=== PATIENT | female | born 1950 | race Caucasian/White ===

== ENCOUNTER → 2017-05-12 11:23 | Outpatient (CLI) | payer OTHER, SELFPAY ==
--- NOTE | 2017-05-12 11:30 | NM_ITS ---
CLINICAL: 57-year-old female with reported history of shortness of breath. VENTILATION-PERFUSION LUNG SCINTIGRAPHY COMPARISON: Plain film chest radiograph report 05/12/2017 FINDINGS: The patient was administered 56.1 mCi 99m Tc DTPA aerosol. The aerosol ventilation study demonstrates heterogeneous ventilation in the bilateral lung teresa without corresponding radiographic changes visualized on review of plain film chest x-ray dated 05/12/2017. Central clumping of the aerosol is identified in the bilateral hemithorax. Following the intravenous administration of 5.2 mCi of 99m Tc MAA, the pulmonary perfusion study reveals matching non-uniform perfusion in the right and left lungs correlating with the previously defined ventilation pattern. No moderate subsegmental or large segmental ventilation-perfusion mismatches are noted. NM/Lung Scan Vent/Perf IMPRESSION: 1. VERY LOW PROBABILITY FOR PULMONARY EMBOLUS (<10%) 99m Tc DTPA aerosol ventilation / 99m Tc MAA pulmonary perfusion imaging examination, according to PIOPED II interpretive criteria with regard given to the presence of > 2 ventilation-perfusion matches without corresponding radiographic changes. (Sotsman et al, Radiology 246: 941, 2008 Soleanne et al, J Nucl Med 49: 1741, 2008). 2. Central clumping of the aerosol may be secondary to obstructive airway mechanics and or clinical tachypnea. Electronically Signed: Gordy Grewal DO at 9:31 EST Tel , Service support ,
--- NOTE | 2017-05-12 12:30 | RAD_ITS ---
STUDY: X-RAY CHEST REASON FOR EXAM: Female, 67 years old. Shortness of breath. TECHNIQUE: PA and lateral views of the chest. COMPARISON: 04/05/2014. FINDINGS: There are slightly prominent markings unchanged prior exam. No new infiltrate is seen. There is no demonstrated pleural abnormality. There is mild cardiac enlargement. Normal mediastinum and gigi. Normal visualized pulmonary arteries. There is atherosclerotic tortuosity of the aortic arch and descending thoracic aorta. There is dextroscoliosis of the thoracic spine and increased kyphosis. There are degenerative changes in the thoracic spine. There are mild degenerative changes in both shoulders. There is no demonstrated abnormality of the visualized soft tissue structures of the upper abdomen. RAD/Chest PA and Lateral IMPRESSION: No active pulmonary disease. Electronically Signed: Adilson Yo MD at 3:57 EST Tel , Service support ,
== END ==
LOC: NM 11:25 → RAD 12:30 → NM 05-13 11:24
PROVIDERS: Family Provider Family Medicine; PCP Family Medicine; Visit Provider Internal Medicine Critical Care Medicine
DX: R06.02 Shortness of breath (principal); R06.00 Dyspnea, unspecified
CPT/HCPCS: 71046; 78582; A9540; A9567

== ENCOUNTER 2017-05-15 11:05 | Emergency (ER) | payer OTHER, SELFPAY ==
[2017-05-15 11:06] VITALS: BP 174/106; PULSE 81; RESP 18; TEMP 37.2; O2SAT 96; BMI 39.8
--- NOTE | 2017-05-15 11:20 | CT_ITS ---
STUDY: CT ABDOMEN AND PELVIS WITHOUT CONTRAST REASON FOR EXAM: Female, 67 years old. Nausea, vomiting and diarrhea. Abdominal pain. Prior abdominal aortic aneurysm repair. RADIATION DOSAGE (If Supplied By Facility): CTDIvol = ( 23.01 ) mGy, DLP = ( 1126.48 ) mGycm TECHNIQUE: Transaxial images were obtained from the dome of the diaphragm to the symphysis pubis without oral contrast, and without intravenous contrast. Sagittal and coronal images were reconstructed. Individualized dose optimization techniques were used for this CT. COMPARISON: Comparison is made with prior study dated March 27, 2017. FINDINGS: The visualized lung bases are unremarkable. Coronary artery calcification. Normal liver. There are surgical clips in the gallbladder fossa consistent with a prior cholecystectomy. There is a benign calcified granuloma of the spleen. Normal pancreas. Normal bilateral adrenal glands. Normal right kidney. Normal left kidney. There is evidence of a left retroaortic renal vein. There is a small hiatal hernia. Normal small intestine. Normal colon. There are surgical clips in the region of the appendix consistent with a prior appendectomy. There is scattered atherosclerotic calcification of the abdominal aorta, without a demonstrated aneurysm. Normal inferior vena cava. Normal retroperitoneum. Normal urinary bladder. Small bilateral benign-appearing inguinal lymph nodes. Normal abdominal wall. Prior laminectomy and interpedicular screw fixation at the L4-L5 level. Marked degree of disc space narrowing and disc degeneration with subchondral sclerosis at the T12-L1 vertebral level. CT/Abdomen/Pelvis without Cont IMPRESSION: No acute abnormality is seen. Electronically Signed: El Mora MD at 12:32 EST Tel [phone], Service support ,
[2017-05-15] MEDS: 0.9% Normal Saline 1,000 ML 125 ML IV (11:41)
[2017-05-15] MEDS: Ondansetron 4 MG/2 ML Vial IV (11:42)
[2017-05-15 11:55] LABS: Absolute Lymphocyte Count 1.39 X10^3/ul (0.83-4.51); Absolute Neutrophil Count 10.3 X10^3/uL (2.0-7.7); Basophil# 0.02 X10^3/uL; Basophil% 0.2 % (0-1); Eosinophil# 0.06 X10^3/uL; Eosinophils% 0.5 % (0-5); Hematocrit 40.7 % (37-47); Hemoglobin 14.1 g/dl (12.0-15.0); Lymphocyte # 1.39 X10^3/ul (4.0); Lymphocyte % 11.1 % (19-41); Mean Corp Hgb Conc 34.6 g/gl (32-36); Mean Corpuscular Hgb 29.3 pg (27.0-32.0); Mean Corpuscular Volume 84.4 fL (81-99); Mean Platelet Vol. 8.6 fl (6.2-12.0); Monocyte% 5.6 % (0-10); Neutrophil # 10.27 X10^3/uL (2.7-7.7); Neutrophil % 82.1 % (47-70); POSITIVE COUNT NO; POSITIVE DIFFERENTIAL NO; POSITIVE MORPHOLOGY NO; Platelet Count 332 K/mm3 (150-450); RBC Distribution Width CV 13.1 % (11.6-14.6); RBC Distribution Width SD 40.1 fl (35.1-43.9); Red Blood Count 4.82 M/mm3 (4.2-5.4); White Blood Count 12.5 K/mm3 (4.4-11.0)
[2017-05-15 12:13] LABS: ALB/GLOB Ratio 0.9 RATIO (0.9-2.4); AST(SGOT) 17 U/L (15-37); Alanine Aminotransfer ALT/SGPT 23 U/L (13-56); Albumin, Serum 3.6 g/dL (3.2-5.0); Alkaline Phosphatase 74 U/L (45-117); Anion Gap 10 (5-15); BUN 13 mg/dL (7-18); BUN/Creat Ratio 14.9 RATIO (10-20); Calcium,Total 9.4 mg/dL (8.5-10.1); Chloride 90 mmol/L (98-107); Creatinine, Serum 0.87 mg/dL (0.55-1.02); EST Glomerular Filtration Rate 69 mL/min (>60); Est Glom Filt Rate - Afr Amer 84 mL/min (>60); Estimated Creatinine Clearance 54.93 ml/min; Globulin 4.1 g/dL (2.2-4.2); Glucose 249 mg/dL (74-106); Lipase 153 U/L (73-393); Potassium 3.1 mmol/L (3.5-5.1); Protein, Total 7.7 g/dL (6.4-8.2); Sodium Level 128 mmol/L (136-145)
[2017-05-15 12:39] LABS: Mucous, Urine 0 SEEN /hpf (<or=2+)
[2017-05-15 12:51] LABS: Color, Urine Yellow (Yellow); Glucose, Dipstick 250 mg/dl (Normal); Leukocyte Esterase-Dipstick Negative /ul (Negative); Nitrite-Dipstick Negative (Negative); Occult Blood-Urine 150 /ul (Negative); Protein-Dipstick 500 mg/dl (Negative); Specific Gravity, Urine 1.015 (1.002-1.030); Urine Bilirubin Dipstick Negative (Negative); Urine Clarity Clear (Clear); Urine Urobilinogen Normal (Normal); Urine pH 6.5 (5.0 - 8.0)
[2017-05-15 12:53] LABS: Ketone-Dipstick 150 mg/dl (Negative)
[2017-05-15 12:57] LABS: Bacteria RARE /hpf (None Seen); Red Blood Cells-Urine 0-5 SEEN /hpf (0-5); Squamous Epithelial Cells - UA 5-10 SEEN /hpf (5-10); White Blood Cells 0-5 SEEN /hpf (0-5)
[2017-05-15 15:05] VITALS: BP 120/56
--- NOTE | 2017-05-15 15:38 | ED.VISSUMM ---
- ER Visit Summary Date of Service: 05/15/17 Chief Complaint: [Abdominal pain and diarrhea] History of Present Illness: The patient is a 67 F [presents to the emergency department with complaint of abdominal pain that started yesterday. Patient states she has had 2 watery stools today. Patient states that she ate some cranberry relish that was left over from Thanksgiving 2 days ago and she is wondering if she may be got food poisoning. Patient denies any blood in her stool or black tarry stools. Patient denies any fever. Patient has a history of diabetes, hypertension, gastritis, peptic ulcer disease, appendectomy, and cholecystectomy.] Physical Examination: [HEENT-PERRLA, EOMI. Cranial nerves II through XII grossly intact. TMs clear. Mucous membranes moist. No adenopathy. Cardiovascular-regular rate and rhythm without murmur or ectopy Lungs-clear to auscultation, chest wall stable without crepitus or subcu emphysema Abdomen-hyperactive bowel sounds, soft, mild diffuse tenderness. There is no rebound, rigidity, or perineal signs. Extremities-intact ?4, normal range of motion, normal pulses, atraumatic] Test Results: [CBC with differential obtained showed a white blood cell count 12.5, hemoglobin 14, hematocrit 41, platelets 332. Sodium was 128, potassium 3.1, chloride 90, CO2 28, glucose 249, BUN 13, creatinine 0.87. Urine was not infected however she did have [address] flank showed nothing acute. I ordered stool for enteric pathogens and C. difficile however patient throughout her 4 hour stay in the emergency department has not been able to produce a sample.] Emergency Department Course and Treatment: [1040 mg once potassium chloride p.o. Patient was given a liter normal same fluid bolus. Patient was medicated with Zofran and morphine. Patient was able to sleep and feels improved.] Treatment Plan: [Patient will be given a prescription for Zofran and Bentyl and advised to follow-up with her primary care physician within next 3-5 days.] Disposition: [Discharged to home in stable condition.] Impression: [Abdominal pain Diarrhea-etiology uncertain] This note was generated with [employer] dictation software. It may contain incorrect words, spelling, and punctuation that were not noted in review of the chart prior to signing ED Disposition - Plan for ED Patient: Chief Complaint: Nausea/Vomiting Referrals: Kaz Cevrantes DO [Primary Care Provider] -
--- NOTE | 2017-05-15 15:43 | ED.DEP ---
ED Disposition - Plan for ED Patient: Chief Complaint: Nausea/Vomiting Instructions: ED Vomiting Diarrhea Nonspecific Ad Prescriptions: Ondansetron [Zofran Odt] 4 mg PO Q8H PRN PRN #10 tab PRN Reason: Nausea Dicyclomine HCl [Bentyl] 20 mg PO TIDAC #20 cap Referrals: Kaz Cervantes DO [Primary Care Provider] - 3-5 Days
[2017-05-15 15:51] VITALS: PULSE 78; RESP 14; O2SAT 98
== END 2017-05-15 15:53 | disposition home or self-care (01) ==
LOC: ED 11:49
PROVIDERS: Emergency Provider Emergency Medicine; Family Provider Family Medicine; PCP Family Medicine
DX: R10.9 Unspecified abdominal pain (principal); R19.7 Diarrhea, unspecified; E11.9 Type 2 diabetes mellitus without complications; I10 Essential (primary) hypertension; Z79.01 Long term (current) use of anticoagulants; Z79.82 Long term (current) use of aspirin; Z79.4 Long term (current) use of insulin; Z79.899 Other long term (current) drug therapy; Z87.19 Personal history of other diseases of the digestive system; Z87.11 Personal history of peptic ulcer disease; Z90.49 Acquired absence of other specified parts of digestive tract
CPT/HCPCS: 74176; 80053; 81001; 83690; 85025; 96361; 96374; 96375; 99284; J7030; A4216; J2405

== ENCOUNTER → 2017-05-20 15:52 | Outpatient (CLI) | payer OTHER, SELFPAY ==
[2017-05-20 17:17] LABS: Absolute Lymphocyte Count 1.93 X10^3/ul (0.83-4.51); Absolute Neutrophil Count 11.7 X10^3/uL (2.0-7.7); Basophil# 0.04 X10^3/uL; Basophil% 0.3 % (0-1); Eosinophil# 0.57 X10^3/uL; Eosinophils% 3.7 % (0-5); Hematocrit 41.1 % (37-47); Hemoglobin 14.1 g/dl (12.0-15.0); Lymphocyte # 1.93 X10^3/ul (4.0); Lymphocyte % 12.6 % (19-41); Mean Corp Hgb Conc 34.3 g/gl (32-36); Mean Corpuscular Hgb 29.6 pg (27.0-32.0); Mean Corpuscular Volume 86.2 fL (81-99); Mean Platelet Vol. 9.4 fl (6.2-12.0); Monocyte# 1.02 X10^3/uL; Monocyte% 6.6 % (0-10); Neutrophil # 11.66 X10^3/uL (2.7-7.7); Neutrophil % 75.9 % (47-70); Platelet Count 429 K/mm3 (150-450); RBC Distribution Width CV 13.4 % (11.6-14.6); RBC Distribution Width SD 41.3 fl (35.1-43.9); Red Blood Count 4.77 M/mm3 (4.2-5.4); White Blood Count 15.4 K/mm3 (4.4-11.0)
[2017-05-20 17:22] LABS: POSITIVE COUNT NO; POSITIVE DIFFERENTIAL NO; POSITIVE MORPHOLOGY NO
[2017-05-20 17:44] LABS: Anion Gap 13 (5-15); BUN 48 mg/dL (7-18); BUN/Creat Ratio 14.3 RATIO (10-20); Calcium,Total 9.3 mg/dL (8.5-10.1); Chloride 97 mmol/L (98-107); Creatinine, Serum 3.36 mg/dL (0.55-1.02); EST Glomerular Filtration Rate 15 mL/min (>60); Est Glom Filt Rate - Afr Amer 18 mL/min (>60); Glucose 150 mg/dL (74-106); Potassium 3.2 mmol/L (3.5-5.1); Sodium Level 135 mmol/L (136-145)
== END ==
PROVIDERS: Family Provider Family Medicine; PCP Family Medicine; Visit Provider Family Medicine
DX: A09 Infectious gastroenteritis and colitis, unspecified (principal); E87.6 Hypokalemia; D72.829 Elevated white blood cell count, unspecified
CPT/HCPCS: 36415; 80048; 83630; 85025; 86140; 87177; 87209; 87493; 87506

== ENCOUNTER 2017-05-21 13:27 | Inpatient (IN) | payer OTHER, MEDICARE, SELFPAY ==
[2017-05-21] VITALS (8 sets, daily range): BP systolic 81–115; BP diastolic 39–74; PULSE 55–62; RESP 18–19; TEMP 36.3–36.8; O2SAT 93–97; BMI 38.9; BMI 39.2; BMI 39.3
--- NOTE | 2017-05-21 14:15 | EKG12_ITS ---
Test Reason : LABS OFF Blood Pressure : / mmHG Vent. Rate : 057 BPM Atrial Rate : 057 BPM P-R Int : 212 ms QRS Dur : 094 ms QT Int : 462 ms P-R-T Axes : 016 -11 065 degrees QTc Int : 449 ms Sinus bradycardia with 1st degree A-V block Otherwise normal ECG Confirmed by THERESA MALIK, TUCKER ([id number]), state editor JULIAN YEAGER ([id number]) on 05/27/2017 3:47:16 PM Referred By: SHUBHAM Confirmed By:TUCKER CARDENAS MD
[2017-05-21 14:32] LABS: Absolute Lymphocyte Count 2.19 X10^3/ul (0.83-4.51); Absolute Neutrophil Count 16.3 X10^3/uL (2.0-7.7); Basophil# 0.04 X10^3/uL; Basophil% 0.2 % (0-1); Eosinophil# 0.38 X10^3/uL; Eosinophils% 1.9 % (0-5); Hematocrit 40.8 % (37-47); Hemoglobin 14.1 g/dl (12.0-15.0); Lymphocyte # 2.19 X10^3/ul (4.0); Lymphocyte % 10.9 % (19-41); Mean Corp Hgb Conc 34.6 g/gl (32-36); Mean Corpuscular Hgb 29.4 pg (27.0-32.0); Mean Platelet Vol. 9.4 fl (6.2-12.0); Monocyte# 1.05 X10^3/uL; Monocyte% 5.2 % (0-10); Neutrophil # 16.32 X10^3/uL (2.7-7.7); Neutrophil % 81.3 % (47-70); Platelet Count 404 K/mm3 (150-450); RBC Distribution Width CV 13.6 % (11.6-14.6); RBC Distribution Width SD 41.8 fl (35.1-43.9); White Blood Count 20.1 K/mm3 (4.4-11.0)
[2017-05-21] MEDS: 0.9% Normal Saline 1,000 ML 1000 ML IV (14:33)
[2017-05-21 14:34] LABS: POSITIVE COUNT NO; POSITIVE DIFFERENTIAL NO; POSITIVE MORPHOLOGY NO
[2017-05-21 14:46] LABS: Anion Gap 14 (5-15); BUN 59 mg/dL (7-18); BUN/Creat Ratio 11.1 RATIO (10-20); Calcium,Total 9.1 mg/dL (8.5-10.1); Chloride 95 mmol/L (98-107); Creatinine, Serum 5.31 mg/dL (0.55-1.02); EST Glomerular Filtration Rate 9 mL/min (>60); Est Glom Filt Rate - Afr Amer 10 mL/min (>60); Glucose 115 mg/dL (74-106); Potassium 3.1 mmol/L (3.5-5.1); Sodium Level 132 mmol/L (136-145)
--- NOTE | 2017-05-21 16:45 | HP.PCM_ITS ---
Problem List (1) JILL (acute kidney injury) Status: Acute (2) Hyperlipidemia Status: Chronic Qualifiers: Hyperlipidemia type: unspecified Qualified Code(s): E78.5 - Hyperlipidemia , unspecified (3) Diabetic peripheral neuropathy Status: Chronic (4) Hypokalemia Status: Chronic (5) Spinal stenosis of lumbar region Status: Chronic Qualifiers: Neurogenic claudication status: unspecified Qualified Code(s): M48.061 - Spinal stenosis, lumbar region without neurogenic claudication (6) Gastroenteritis Status: Acute (7) Morbid obesity Status: Chronic (8) Hypertension Status: Chronic Qualifiers: Hypertension type: essential hypertension Qualified Code(s): I10 - Essential (primary) hypertension Comment: BP slightly elevated upon arrival. Recheck 130/82 Taking medication as directed. (9) Recurrent falls Status: Acute History of Present Illness Date of Admission: 05/21/17 Chief Complaint: Recurrent falls, abnormal labs The patient is a 67 year old F with past medical history of type 2 DM, complicated by polyneuropathy, Hypertension, chronic low back pain secondary to lumbar stenosis and degenerative joint disease comes in with complaints of recurrent falls, feeling of imbalance, and abnormal blood work. According to the patient, she has not been feeling well, has been feeling like she is losing her balance, her legs gave out twice and she fell over the last 1- 1/2 weeks. She went to see her primary care doctor today and his labs was said to be abnormal with creatinine of 3.36. Admits to having diarrhea we started on Friday multiple times a day, nonbloody, nonmucoid. She took Imodium today and has had a couple bowel movements. No fever but she admits to chills. Denies any chest pain or palpitations or dizziness. Vitals in the ED showed temperature of 97.4F, heart rate of 60, blood pressure 99/39, oxygen saturation was 97% on room air. Laboratory investigation revealed WBC count of 20.1, Hb of 14.1, platelets of 404, sodium 132, potassium 3.1, chloride 95, bicarbonate 23, BUN 59, creatinine 5.31. Past Medical History Past Medical History (Chronic Problems): Chronic Problems (Last Reviewed 05/07/17 @ 09:10 by Heather Epps) Seasonal allergies (Chronic) Chronic bronchitis (Chronic) Vitamin D deficiency (Chronic) Hyperlipidemia (Chronic) Diabetic peripheral neuropathy (Chronic) Hypokalemia (Chronic) IBS (irritable bowel syndrome) (Chronic) Insomnia (Chronic) Spinal stenosis of lumbar region (Chronic) DDD (degenerative disc disease), cervical (Chronic) Disequilibrium (Chronic) Dyspnea on exertion (Chronic) GERD (gastroesophageal reflux disease) (Chronic) Morbid obesity (Chronic) Atrial septal defect (Chronic) Pulmonary emboli (Chronic) Asthma (Chronic) DM (diabetes mellitus), type 2, uncontrolled (Chronic) Hypertension (Chronic) BP slightly elevated upon arrival. Recheck 130/82 Taking medication as directed. Restless leg syndrome (Chronic) Anxiety and depression (Chronic) SHANNON (obstructive sleep apnea) (Chronic) Obesity (BMI 35.0-39.9 without comorbidity) (Chronic) Allergies latex Allergy (Verified 05/21/17 13:29) Itching zolpidem [From Ambien] Adverse Reaction (Severe, Verified 05/21/17 13:29) Sleep walking/talking environmental Allergy (Uncoded 05/21/17 13:29) Other Home Medications: Ambulatory Orders Medication Instructions Recorded Ropinirole HCl [Requip] 4 mg PO QHS 02/23/13 Potassium Chloride [K-Dur] 20 meq PO QHS 12/23/15 amlodipine 10 mg tablet 10 mg PO QDAY 02/28/17 chlorthalidone 25 mg tablet 25 mg PO QAM tab 02/28/17 ergocalciferol (vitamin D2) 50,000 50,000 unit PO QMONTH 02/28/17 unit capsule losartan 100 mg tablet 100 mg PO QDAY 02/28/17 omeprazole 40 mg capsule,delayed 40 mg PO QDAY 02/28/17 release propranolol ER 120 mg capsule,24 120 mg PO QDAY 02/28/17 hr,extended release insulin human U-100 NPH-regulr 30 unit SC BREAKFAST 03/03/17 70-30 mix 100 unit/mL subcutaneous susp aspirin 81 mg tablet,delayed 81 mg PO QDAY 03/04/17 release Gabapentin [Neurontin] 800 mg PO 4X/DAY 03/27/17 Insulin Human 70/30 [Novolog Mix 45 units SC LUNCH 03/27/17 70-30 Flexpen Syrn] Insulin Human 70/30 [Novolog Mix 75 units SC DINNER 03/27/17 70-30 Flexpen Syrn] Loperamide [Imodium] 2 mg PO Q4H PRN PRN #20 cap 04/01/17 warfarin 7.5 mg tablet 7.5 mg PO DAILY tab 04/08/17 Ondansetron [Zofran Odt] 4 mg PO Q8H PRN PRN #10 tab 05/15/17 Surgical History: - - BL carpal tunnel release, Appendectomy, Back Surgery, Cataract surgery, Cholecystectomy, Umbilical hernia repair. 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 Denies: Fever, Weight Change Eyes: Denies: Blurred vision, Cataracts, Conjunctivae Inflammation, Double vision HEENT: Denies: Difficulty Hearing, Difficulty Swallowing, Head Aches, Hearing Changes, Sinus Congestion, Sinus Drainage Cardiovascular: Reports: Edema - worse in the left leg. Denies: Chest Pain, Claudication, Heaviness, Light Headedness, Orthopnea, Palpitations, Paroxysmal Noc. Dyspnea, Syncope Respiratory: Denies: Cough, Shortness of breath at rest, Sputum production Gastrointestinal: Denies: Abdominal Pain, Constipation, Hematemesis, Hematochezia, Nausea, Vomiting Genitourinary: Denies: Dysuria, Incontinence Gynecological: Denies: Vaginal discharge, Vaginal itching Musculoskeletal: Denies: Joint Pain, Joint stiffness, Joint swelling, Joint Tenderness Skin: Denies: Dryness, Pruritis, Rash, Wounds Neurological: Reports: Numbness - chronic. Denies: Difficulty swallowing, Focal weakness, Tingling Psychiatric: Denies: Anxiety, Depression, Homicidal Ideations, Suicidal Ideations Hematologic/ Lymphatic: Denies: Easy Bruising, Easy Bleeding VTE Information - Inpt Only VTE Present on Admission: No VTE Pharm Prophylaxis ordered?: Yes Patient Problems: Active and Suspected Problems (Last Reviewed 05/07/17 @ 09:10 by Heather Epps ) JILL (acute kidney injury) (Acute) Recurrent falls (Acute) - Physical Exam General: Alert, Oriented x3, Cooperative HEENT: Atraumatic, PERRLA, EOMI, Normocephalic Oral: Dry Mucosa Neck: Supple Lungs: Clear to auscultation, Normal air movement Cardiovascular: Regular rate, Regular Rhythm, Normal S1, Normal S2, No murmurs Abdomen: Bowel Sounds Present, Soft, Non Tender, Non-Distended, No Hepato- splenomegaly Extremities: No edema Skin: No rashes Musculoskeletal: No Tenderness to Palpation of Joints or Extremities Lymphatic: No Cervical, Supraclavicular, or Inguinal Adenopathy Neurological: Cranial nerves II-XII grossly intact Psych/Mental Status: Normal Affect, Appropriate Vital Signs Temp Pulse Resp BP Pulse Ox 97.4 F L 55 L 19 H 93/72 93 05/21/17 13:29 05/21/17 16:32 05/21/17 16:32 05/21/17 16:32 05/21/17 16:32 Oxygen Delivery Method Room Air Weight: 102.965 kg Body Mass Index (BMI) 38.9 Finger Stick Blood Glucose 225 Laboratory Tests Past 24 Hrs 05/21/17 05/21/17 14:16 14:16 WBC 20.1 H RBC 4.80 Hgb 14.1 Hct 40.8 MCV 85.0 MCH 29.4 MCHC 34.6 RDW 13.6 RDW Differential 41.8 Plt Count 404 MPV 9.4 Immature Gran % (Auto) 0.500 Neut % (Auto) 81.3 H Lymph % (Auto) 10.9 L Troup % (Auto) 5.2 Eos % (Auto) 1.9 Baso % (Auto) 0.2 Absolute Neuts (auto) 16.3 H Absolute Lymphs (auto) 2.19 Total Counted Not Reportable Sodium 132 L Potassium 3.1 L Chloride 95 L Carbon Dioxide 23.0 Anion Gap 14 BUN 59 H Creatinine 5.31 H Estim Creat Clear Calc 9.00 Est GFR (MDRD) Af Amer 10 L Est GFR (MDRD) Non-Af 9 L BUN/Creatinine Ratio 11.1 Glucose 115 H Calcium 9.1 Assessment/Plan Active and Suspected Problems (Last Reviewed 05/07/17 @ 09:10 by Heather Epps ) JILL (acute kidney injury) (Acute) Recurrent falls (Acute) 67 year old F with past medical history of type 2 DM, complicated by polyneuropathy, Hypertension, chronic low back pain secondary to lumbar stenosis and degenerative joint disease comes in with complaints of recurrent falls, feeling of imbalance, and abnormal blood work. 1. Acute kidney injury in a patient with normal renal function, admitted with creatinine of 5.31, patient denied any urinary frequency or urgency Plan: Admit to the [facility] floor, nephrology consult, Mccain catheter to be placed, strict I's and O's, ultrasound of the kidneys and bladder, IV fluids, stop chlorthalidone, repeat blood work in a.m. 2. Hypokalemia secondary to diuretic use, replaced in the ED, recheck in a.m. 3. Hypertension, slightly hypotensive, on amlodipine, losartan, chlorthalidone , will continue to hold chlorthalidone and losartan because of HPI, continue amlodipine and monitor blood pressures closely 4. Type II DM, complicated by peripheral neuropathy, on insulin, will continue to use same insulin with Accu-Cheks and insulin sliding scale. 5. Acute diarrhea, unclear etiology, stool sample sent to the ED, will put on contact precautions pending results, will continue to hydrate and money symptomatically 6. History of pulmonary embolism, on Coumadin, INR noted in the ED, follow-up on INR results and continue with Coumadin 7. Recurrent falls in a patient with peripheral neuropathy, likely exacerbated also by dehydration, will check orthostatic vitals, PT OT to evaluate and treat 8. DVT prophylaxis - patient on Coumadin Code Visit Inpatient E&M: 88855 Init Hosp L3
--- NOTE | 2017-05-21 17:00 | ED.DCSUM_ITS ---
- ER Visit Summary Date of Service: 05/21/17 Chief Complaint: Generalized weakness and low potassium History of Present Illness: The patient is a 67 F with generalized weakness and not feeling well for the last week and a half. She developed diarrhea last weekend and started taking Imodium. She denies having diarrhea since yesterday. She states that she feels confused. She states she has fallen in her home a couple times in the last few weeks. She was seen by her PCP yesterday and outpatient labs revealed elevated white count, low potassium, and elevated creatinine. Past history is significant for IBS, GERD, PE, diabetes, and asthma. She is chronically on Coumadin but this is been on hold the last 5 days for an upcoming back injection. Physical Examination: Blood pressure is 99/39, temperature 97.4, heart rate 60, respiratory rate 18, pulse ox 97% on room air. Patient's lying in bed no acute distress. Head neck examination is unremarkable. Heart is regular rate and rhythm. Lung sounds are clear. Abdomen is soft with mild diffuse tenderness to palpation. There is no guarding or rebound. Neuro exam reveals generalized weakness but no focal deficits. Test Results: CBC was a white count of 20.1 with 81% neutrophils. Her history studies reveal a sodium of 132, potassium 3.1, chloride 95. Her BUN today is 59 and her creatinine is 5.31. This is compared to a BUN of 48 and a creatinine of 3.38 yesterday. Emergency Department Course and Treatment: Patient is given 2 L of IV fluid, oral potassium, and Zofran. She is currently up to the bedside commode. Stool studies have been ordered. I spoke with Dr. Back for admission and also spoke with nephrology per her request. Treatment Plan: [] Disposition: Admit Impression: 1. Acute renal failure 2. Hypokalemia 3. Leukocytosis This note was generated with [employer] dictation software. It may contain incorrect words, spelling, and punctuation that were not noted in review of the chart prior to signing ED Disposition - Plan for ED Patient: Chief Complaint: General Illness
[2017-05-21] MEDS: 0.9% Normal Saline 1,000 ML 999 ML IV (17:06)
--- NOTE | 2017-05-21 17:38 | US_ITS ---
STUDY: RENAL ULTRASOUND - COMPLETE REASON FOR EXAM: Female, 67 years old. Acute renal failure TECHNIQUE: Ultrasound evaluation of the kidneys was performed with real-time and static altman-scale imaging. COMPARISON: None. FINDINGS: RIGHT KIDNEY: Normal location of the right kidney, which is normal in size. The right kidney measures 13.3 x 4.7 x 5.1 cm. There is a normal cortex of the right kidney. The renal cortex measures 1.2 cm. There is no right renal mass or cyst. There are no right renal calculi. There is no right hydronephrosis. DISTAL RIGHT URETER: There is non-visualization of the distal right ureter. There is no demonstrated right ureterovesical junction calculus. There is a visualized right ureteral jet. LEFT KIDNEY: Normal location of the left kidney, which is normal in size. The left kidney measures 12.4 x 4.7 x 4.6 cm. There is a normal cortex of the left kidney. The renal cortex measures 1.3 cm. There is no left renal mass or cyst. There are no left renal calculi. There is no left hydronephrosis. DISTAL LEFT URETER: There is non-visualization of the distal left ureter. There is no demonstrated left ureterovesical junction calculus. There is a visualized left ureteral jet. I.V.C.: The IVC is patent. BLADDER: The distended urinary bladder has a volume of 104 ml. There is borderline wall thickness of the distended urinary bladder. There is no demonstrated mass within the urinary bladder. There are no demonstrated bladder calculi. US/Kidney and Bladder IMPRESSION: Normal ultrasound of the kidneys. Borderline wall thickness of the urinary bladder. Electronically Signed: Cosme Syed DO at 21:09 EST Tel [phone], Service support ,
[2017-05-21 17:54] LABS: International Normalized Ratio 1.5; Prothrombin Time (Protime)PT. 17.8 SECONDS (11.7-14.9)
[2017-05-21 18:46] LABS: Bedside Glucose 92 mg/dL (70-110)
[2017-05-21] MEDS: 0.9% Normal Saline 1,000 ML 100 ML IV (19:10)
[2017-05-21 20:49] LABS: Protein, Urine (Random) 106.1 mg/dL (<11.9)
[2017-05-21 20:53] LABS: Urine Sodium 7 mmol/L (Not Establ.)
[2017-05-21] MEDS: Heparin Injection 5,000 UNITS/ML Syringe 5000 UNITS SC (22:06)
[2017-05-21] MEDS: Pramipexole Di-HCl 0.5 MG Tablet 1.5 MG PO (22:06)
[2017-05-21 22:16] LABS: Bedside Glucose 143 mg/dL (70-110)
[2017-05-22] VITALS (13 sets, daily range): BP systolic 91–134; BP diastolic 48–67; PULSE 60–79; RESP 17–18; TEMP 36.7–37.1; O2SAT 95–98
[2017-05-22] MEDS: Acetaminophen 325 MG Tablet 650 MG PO (02:52)
[2017-05-22] MEDS: 0.9% Normal Saline 1,000 ML 100 ML IV ×2 (05:13→15:33)
[2017-05-22 06:56] LABS: Absolute Lymphocyte Count 2.15 X10^3/ul (0.83-4.51); Basophil# 0.02 X10^3/uL; Basophil% 0.1 % (0-1); Hematocrit 32.6 % (37-47); Lymphocyte # 2.15 X10^3/ul (4.0); Lymphocyte % 16.1 % (19-41); Mean Corp Hgb Conc 33.7 g/gl (32-36); Mean Corpuscular Hgb 29.3 pg (27.0-32.0); Mean Corpuscular Volume 86.9 fL (81-99); Mean Platelet Vol. 9.2 fl (6.2-12.0); Monocyte# 0.73 X10^3/uL; Monocyte% 5.5 % (0-10); Neutrophil # 10.03 X10^3/uL (2.7-7.7); Neutrophil % 74.9 % (47-70); Platelet Count 236 K/mm3 (150-450); RBC Distribution Width CV 13.4 % (11.6-14.6); RBC Distribution Width SD 41.5 fl (35.1-43.9); Red Blood Count 3.75 M/mm3 (4.2-5.4); White Blood Count 13.4 K/mm3 (4.4-11.0)
[2017-05-22 06:58] LABS: POSITIVE COUNT NO; POSITIVE DIFFERENTIAL NO; POSITIVE MORPHOLOGY NO
[2017-05-22 06:59] LABS: Anion Gap 12 (5-15); BUN 56 mg/dL (7-18); BUN/Creat Ratio 16.4 RATIO (10-20); Calcium,Total 7.7 mg/dL (8.5-10.1); Chloride 106 mmol/L (98-107); Creatinine, Serum 3.42 mg/dL (0.55-1.02); EST Glomerular Filtration Rate 14 mL/min (>60); Est Glom Filt Rate - Afr Amer 17 mL/min (>60); Estimated Creatinine Clearance 13.97 ml/min; Glucose 151 mg/dL (74-106); Potassium 3.5 mmol/L (3.5-5.1); Sodium Level 136 mmol/L (136-145)
[2017-05-22 07:07] LABS: International Normalized Ratio 1.3; Prothrombin Time (Protime)PT. 15.8 SECONDS (11.7-14.9)
[2017-05-22 08:07] LABS: Bedside Glucose 124 mg/dL (70-110)
[2017-05-22] MEDS: Aspirin E.C. 81 MG Tablet PO (08:10)
--- NOTE | 2017-05-22 08:30 | PCM.PN.HOSP ---
Patient Problems: Active and Suspected Problems (Last Reviewed 05/07/17 @ 09:10 by Heather Epps) JILL (acute kidney injury) (Acute) Recurrent falls (Acute) Subjective: Patient with no acute events overnight per self and per nursing report. Notes feeling markedly improved since initial presentation, less fatigued, more energy, denies any ongoing diarrhea as recent Lomotil regimen following a negative C. difficile assay. She denies any emesis but does have occasional nausea outpatient. Did recent labs and improved renal function, likely prerenal, decision for ongoing IV fluids to which patient is amenable. Patient denies fevers, chills, nausea, emesis, abdominal pain, chest pain or dyspnea. Objective: Physical Examination: General: awake, alert, oriented x 3 and cooperative, seated upright in bed, fatigued appearance, notes feeling improved. Skin: normal color, turgor, no icterus, cyanosis. HEENT: AT/NC, EOMI, PERRLA, improved MMM. Lungs: CTA bilaterally, moderate effort, mild decrease BL bases, no rales, ronchi or wheezing. Heart: Regular rate and rhythm; no gallop, rub audible. Abdomen: soft, obese, NTTP, ND, mildly hyperactive BS. Extremities: no cyanosis, clubbing, or edema. Neurological: patient awake, alert, oriented x 3; cognitive function intact; pupils equally reactive to light and accomodation; cranial nerves II-XII grossly normal, moving all 4 extremities, no focal deficits, strength moderately globally decreased, improved since initial presentation. Psychiatric: affect appears normal, no acute evidence of depressive or anxiety feelings. Vitals/I&O's: Vital Signs Temp Pulse Resp BP Pulse Ox 98.4 F 67 18 115/63 98 05/22/17 08:19 05/22/17 08:19 05/22/17 08:19 05/22/17 08:19 05/22/17 08:19 Oxygen Delivery Method Room Air Weight: 233 lb 3.985 oz Body Mass Index (BMI) 39.2 Orthostatic Vital Signs Start: 05/21/17 18:03 Freq: q24h Status: Active Protocol: Activity Type Activity Date Activity User E-Sign Co-Sign Detail Recorded Client Recorded Date Recorded By Document 05/21/17 18:03 AEC [id number] 05/21/17 18:04 AEC 05/21/17 18:03 Orthostatic Vitals Standing -Blood Pressure (90/60-120/80) 104/74 -Extremity Use Left Arm -Pulse Rate (60-100) 62 Sitting -Blood Pressure (90/60-120/80) 99/64 -Extremity Use Left Arm -Pulse Rate (60-100) 56 L Lying -Blood Pressure (90/60-120/80) 115/59 L -Extremity Use Left Arm -Pulse Rate (60-100) 56 L Intake and Output for Last 24 Hours 05/20/17 05/21/17 05/22/17 23:59 23:59 23:59 Intake Total 873 / 873 Output Total 600 / 600 Balance 273 / 273 Laboratory Results 05/21/17 18:13: POC Glucose 92 05/21/17 19:46: Urine Creatinine 354.00 05/21/17 19:46: U Random Total Protein 106.1 H 05/21/17 19:46: Ur Random Sodium 7 05/21/17 22:05: POC Glucose 143 H 05/22/17 06:10: Sodium 136, Potassium 3.5, Chloride 106, Carbon Dioxide 18.0 L, Anion Gap 12, BUN 56 H, Creatinine 3.42 H, Estim Creat Clear Calc 13.97, Est GFR (MDRD) Af Amer 17 L, Est GFR (MDRD) Non-Af 14 L, BUN/Creatinine Ratio 16.4, Glucose 151 H, Calcium 7.7 L 05/22/17 06:42: WBC 13.4 H, RBC 3.75 L, Hgb 11.0 L, Hct 32.6 L, MCV 86.9, MCH 29.3, MCHC 33.7, RDW 13.4, RDW Differential 41.5, Plt Count 236, MPV 9.2, Immature Gran % (Auto) 0.400, Neut % (Auto) 74.9 H, Lymph % (Auto) 16.1 L, [place] % (Auto) 5.5, Eos % (Auto) 3.0, Baso % (Auto) 0.1, Absolute Neuts (auto) 10.0 H, Absolute Lymphs (auto) 2.15, Total Counted Not Reportable 05/22/17 06:42: PT 15.8 H, INR 1.3 05/22/17 08:01: POC Glucose 124 H Current Medications Acetaminophen (Tylenol) 650 mg PO Q6H PRN PRN PRN Reason: Mild Pain (1-3)/Temp > 100.7 F Last Admin: 05/22/17 02:52 Dose: 650 mg Amlodipine Besylate (Norvasc) 10 mg PO DAILY [facility] Aspirin (Ecotrin) 81 mg PO DAILYCM [facility] Last Admin: 05/22/17 08:10 Dose: 81 mg Bisacodyl (Dulcolax) 5 mg PO DAILY PRN PRN PRN Reason: Constipation Dextrose (D50w Syringe) 0 gm IV X1 PRN; Protocol PRN Reason: Hypoglycemia Ergocalciferol (Vitamin D) 50,000 unit PO QMONTH [facility] Glucagon () 1 mg IM .X1 PRN PRN Reason: Hypoglycemia Heparin Sodium (Porcine) () 5,000 units SC BID [facility] Last Admin: 05/21/17 22:06 Dose: 5,000 units Sodium Chloride () 1,000 mls @ 100 mls/hr IV .Q10H [facility] Last Admin: 05/22/17 05:13 Dose: 100 mls/hr Insulin Aspart (Novolog Mix 70-30 Flexpen Syrn) 45 units SC LUNCH [facility] Insulin Aspart (Novolog Mix 70-30 Flexpen Syrn) 75 units SC DINNER [facility] Last Admin: 05/21/17 22:07 Dose: Not Given Insulin Aspart (Novolog Mix 70-30 Flexpen Syrn) 30 units SC BREAKFAST [facility] Last Admin: 05/22/17 08:12 Dose: 30 u Insulin Aspart (Novolog Flexpen (Bkc)) 0 units SC ACHS [facility] PRN Reason: Protocol Last Admin: 05/22/17 08:11 Dose: Not Given Loperamide HCl (Imodium) 2 mg PO Q4H PRN PRN PRN Reason: Diarrhea Losartan Potassium (Cozaar) 100 mg PO DAILY [facility] Magnesium Hydroxide (Milk Of Magnesia) 30 ml PO DAILY PRN PRN PRN Reason: Constipation Ondansetron HCl (Zofran Odt) 4 mg PO Q8H PRN PRN PRN Reason: NAUSEA Ondansetron HCl (Zofran) 4 mg IV Q8H PRN PRN PRN Reason: NAUSEA Pantoprazole Sodium (Protonix) 40 mg PO DAILY [facility] Potassium Chloride (K-Dur) 20 meq PO QHS [facility] Last Admin: 05/21/17 22:06 Dose: 20 meq Pramipexole Dihydrochloride (Mirapex) 1.5 mg PO QHS [facility] Last Admin: 05/21/17 22:06 Dose: 1.5 mg Propranolol HCl (Inderal La) 120 mg PO DAILY [facility] Psyllium Hydrophilic Mucilloid (Metamucil) 1 packet PO DAILY PRN PRN PRN Reason: CONSTIPATION Sodium Chloride () 5 - 30 ml IV UD PRN PRN Reason: SALINE FLUSH Warfarin Sodium (Coumadin (Pbkc)) 7.5 mg PO [id number]@1700 [facility] Assessment/Plan Active and Suspected Problems (Last Reviewed 05/07/17 @ 09:10 by Heather Epps) JILL (acute kidney injury) (Acute) Recurrent falls (Acute) The patient is a 66 y/o F w/ PMHx: GERD/PUD, Atrial septal defect, Hx Pulmonary emboli on anticoagulation with coumadin, HTN, Asthma, RLS, SHANNON, Morbid Obesity, Diabetes Mellitus type II, Anxiety and depression who presents to the [facility] ED on 05/22/17 with ongoing falls, malaise, ongoing diarrhea which she has had in the past also with unremarkable labs studies prior. (1) Frequent Falls, Ongoing Diarrhea, Poor Intake, ? Unclear Etiology, ? Gastroenteritis: Admitted to [facility], continue hydration, c-diff negative, will obtain enteric pathogen and O+P to be thorough given ongoing issue, CBC improved with IVFs, afebrile, will not start antibiotics at this time given unclear source pending stool studies, she has had prior CT A/P 03/2017 with similar presentation which was unremarkable at that time, rapid influenza negative, UA unremarkable. Anti-emetics, pain regimen PRN. PT, OT given debility and weakness. (2) Acute kidney injury: Secondary to #1, dehydration, poor intake, similar presentation in the past, admission BUN/Cr 59/5.31, baseline Cr prior 0.7-0.9, continued hydration, 05/22/17 BUN/Cr 56/3.42, improving, hold of any nephrotoxic agents, renal US unremarkable aside mild bladder thickening, FeNa 0.08%, David 7, both consistent with extrarenal losses. Nephrology consulted, pending. (3) Hypokalemia: Admission K+ 3.1, supplementation given, repeat level normalized 3.5. (4) Hyponatremia: Hypovolemic, secondary to #1 and #2, continue hydration as noted, repeat BMP in AM. (5) Leukocytosis: Admission CBC w/ WBC 20.1 with L shift, following hydration w/ JILL as noted, repeat 05/22/17 CBC with WBC 13.4 with decrease L shift, UA not marked, c-diff negative, influenza rapid negative. (6) Atrial septal defect: Following with Dr. Sepulveda, maintained on coumadin w/ INR trending. (7) Hx Pulmonary emboli: Maintain on anticoagulation with coumadin, INR trending. (8) Hypertension: Continue home regimen including Norvasc, propranolol, PRN hydralazine. Given dehydration and JILL will hold ARB, chlorthalidone regimen. (9) Chronic Asthma: PRN albuterol, HOB, IS parameters. (10) RLS: Maintain on home Requip regimen. (11) SHANNON: CPAP q HS. (12) Morbid Obesity: Weight loss and lifestyle changes encouraged, nutrition consulted. (13) Diabetes mellitus type II: Hold oral home regimen, continue home insulin regimen, clears initially and ADAT-->ADA diet, accu checks w/ ISS. (14) Anxiety and depression: Maintain on home regimen citalopram. (15) GERD/PUD: Maintain on home PPI, sucralafate. (16) DVT Prophylaxis: SCDs, coumadin w/ INR trending, admission INR 1.5, repeat 1.3, will start heparin drip given JILL presentation until therapeutic or more near goal. Code Visit Inpatient E&M: [id number] [facility] L3
--- NOTE | 2017-05-22 08:34 | PCM.CONS.R ---
Consultation - Renal 05/22/17 PCP/ Referring MD: Requesting physician: Lisa Bran MD Primary care physician: Kaz Cervantes DO Reason for Consultation:: JILL - History of Present Illness History of Present Illness: The patient is a 67 year old F admitted for JILL, dehydration. She complains of nonbloody diarrhea past several days about 10 episodes a dauy. She has a history chronic diarrhea from IBS resolved with imodium usually. She was hospitalized in March for diarrhea, dehydration and stool for cdiff was negative in March. She presents with weakness with hypokalemia, worsening renal function. Creatinine was 5.3 on admit yesterday improved to 3.4 today with iv fluids. She had stool for cdiff checked as outpt in ER on 05/15 that was negative. She denied fever, chills, nausea, vomiting. No recent antibiotic therapy. She has diabetes on metformin at home. Home medication list includes chlorthalidone and losartan both discontinued on admit. She had mild epigastric pain with history of PUD. She denied CP, swelling, SOB. She has noticed a decline in urine output at home. She admits to lightheadedness at home, frequent falls. She has neuropathy, diabetes, hypertension history. - Allergies Allergies: Allergies latex Allergy (Verified 05/21/17 13:29) Itching zolpidem [From Ambien] Adverse Reaction (Severe, Verified 05/21/17 13:29) Sleep walking/talking environmental Allergy (Uncoded 05/21/17 13:29) Other - Current Medications Current Medications: Current Medications Acetaminophen (Tylenol) 650 mg PO Q6H PRN PRN PRN Reason: Mild Pain (1-3)/Temp > 100.7 F Last Admin: 05/22/17 02:52 Dose: 650 mg Amlodipine Besylate (Norvasc) 10 mg PO DAILY [facility] Aspirin (Ecotrin) 81 mg PO DAILYCM [facility] Last Admin: 05/22/17 08:10 Dose: 81 mg Bisacodyl (Dulcolax) 5 mg PO DAILY PRN PRN PRN Reason: Constipation Dextrose (D50w Syringe) 0 gm IV X1 PRN; Protocol PRN Reason: Hypoglycemia Ergocalciferol (Vitamin D) 50,000 unit PO QMONTH [facility] Glucagon () 1 mg IM .X1 PRN PRN Reason: Hypoglycemia Heparin Sodium (Porcine) () 5,000 units SC BID [facility] Last Admin: 05/21/17 22:06 Dose: 5,000 units Sodium Chloride () 1,000 mls @ 100 mls/hr IV .Q10H [facility] Last Admin: 05/22/17 05:13 Dose: 100 mls/hr Insulin Aspart (Novolog Mix 70-30 Flexpen Syrn) 45 units SC LUNCH [facility] Insulin Aspart (Novolog Mix 70-30 Flexpen Syrn) 75 units SC DINNER [facility] Last Admin: 05/21/17 22:07 Dose: Not Given Insulin Aspart (Novolog Mix 70-30 Flexpen Syrn) 30 units SC BREAKFAST [facility] Last Admin: 05/22/17 08:12 Dose: 30 u Insulin Aspart (Novolog Flexpen (Bkc)) 0 units SC ACHS [facility] PRN Reason: Protocol Last Admin: 05/22/17 08:11 Dose: Not Given Loperamide HCl (Imodium) 2 mg PO Q4H PRN PRN PRN Reason: Diarrhea Losartan Potassium (Cozaar) 100 mg PO DAILY [facility] Magnesium Hydroxide (Milk Of Magnesia) 30 ml PO DAILY PRN PRN PRN Reason: Constipation Ondansetron HCl (Zofran Odt) 4 mg PO Q8H PRN PRN PRN Reason: NAUSEA Ondansetron HCl (Zofran) 4 mg IV Q8H PRN PRN PRN Reason: NAUSEA Pantoprazole Sodium (Protonix) 40 mg PO DAILY [facility] Potassium Chloride (K-Dur) 20 meq PO QHS [facility] Last Admin: 05/21/17 22:06 Dose: 20 meq Pramipexole Dihydrochloride (Mirapex) 1.5 mg PO QHS [facility] Last Admin: 05/21/17 22:06 Dose: 1.5 mg Propranolol HCl (Inderal La) 120 mg PO DAILY [facility] Psyllium Hydrophilic Mucilloid (Metamucil) 1 packet PO DAILY PRN PRN PRN Reason: CONSTIPATION Sodium Chloride () 5 - 30 ml IV UD PRN PRN Reason: SALINE FLUSH Warfarin Sodium (Coumadin (Pbkc)) 7.5 mg PO [id number]@1700 [facility] - Past Medical History Past Medical History (Chronic Problems): Chronic Problems (Last Reviewed 05/07/17 @ 09:10 by Heather Epps) Seasonal allergies (Chronic) Chronic bronchitis (Chronic) Vitamin D deficiency (Chronic) Hyperlipidemia (Chronic) Diabetic peripheral neuropathy (Chronic) Hypokalemia (Chronic) IBS (irritable bowel syndrome) (Chronic) Insomnia (Chronic) Spinal stenosis of lumbar region (Chronic) DDD (degenerative disc disease), cervical (Chronic) Disequilibrium (Chronic) Dyspnea on exertion (Chronic) GERD (gastroesophageal reflux disease) (Chronic) Morbid obesity (Chronic) Atrial septal defect (Chronic) Pulmonary emboli (Chronic) Asthma (Chronic) DM (diabetes mellitus), type 2, uncontrolled (Chronic) Hypertension (Chronic) BP slightly elevated upon arrival. Recheck 130/82 Taking medication as directed. Restless leg syndrome (Chronic) Anxiety and depression (Chronic) SHANNON (obstructive sleep apnea) (Chronic) Obesity (BMI 35.0-39.9 without comorbidity) (Chronic) - Past Surgical History Surgical History: appendectomy, cataract, cholecystectomy, herniorrhaphy - unbilical, - - BL carpal tunnel release - Social History Smoking Status: Never smoker Alcohol: None Drugs: None - Family History Maternal Family History: Family History (Last Reviewed 05/07/17 @ 09:10 by Heather Epps) Father Heart disease Hypertension CAD (coronary artery disease) Arthritis Mother Hypertension Asthma Diabetes Heart disease COPD (chronic obstructive pulmonary disease) History Items: Diabetes, Heart Disease Paternal Family History: Family History (Last Reviewed 05/07/17 @ 09:10 by Heather Epps) Father Heart disease Hypertension CAD (coronary artery disease) Arthritis Mother Hypertension Asthma Diabetes Heart disease COPD (chronic obstructive pulmonary disease) History Items: Diabetes, Heart Disease Review of Systems Constitutional: Reports: Anorexia, Weakness, - - frequent falls. Denies: Chills, Fever Eyes: Reports: Cataracts - removed HEENT: Denies: Head Aches Cardiovascular: Reports: - - near syncope. Denies: Chest Pain, Palpitations Respiratory: Denies: Cough, Shortness of Breath Gastrointestinal: Reports: Abdominal Pain, Diarrhea, - - irritable bowel. Denies: Nausea, Vomiting Genitourinary: Denies: Dysuria Musculoskeletal: Reports: Back Pain. Denies: Joint swelling Skin: Denies: Rash Neurological: Reports: Balance problems. Denies: Tremor, Seizures Psychiatric: Reports: Anxiety, Depression Hematologic/ Lymphatic: Denies: Anemia, Hx of blood clot Patient Problems: Active and Suspected Problems (Last Reviewed 05/07/17 @ 09:10 by Heather Epps) Dehydration (Acute) Dehydration with hyponatremia (Acute) JILL (acute kidney injury) (Acute) Recurrent falls (Acute) - Physical Exam General: Alert, Oriented x3, Cooperative, No apparent distress, - - obese HEENT: PERRLA, EOMI Oral: Dry Mucosa Neck: Supple, No JVD Lungs: Clear to auscultation Cardiovascular: Regular rate Abdomen: Bowel Sounds Present, Soft, Non Tender, Non-Distended, Obese Extremities: No edema Skin: No rashes Musculoskeletal: No Muscle Wasting Neurological: Cranial nerves II-XII grossly intact Psych/Mental Status: Normal Affect, Appropriate, Alert and oriented to time, place, person, mood and affect Vital Signs Temp Pulse Resp BP Pulse Ox 98.4 F 67 18 115/63 98 05/22/17 08:19 05/22/17 08:19 05/22/17 08:19 05/22/17 08:19 05/22/17 08:19 Oxygen Delivery Method Room Air Weight: 105.8 kg Body Mass Index (BMI) 39.2 Orthostatic Vital Signs Start: 05/21/17 18:03 Freq: q24h Status: Active Protocol: Activity Type Activity Date Activity User E-Sign Co-Sign Detail Recorded Client Recorded Date Recorded By Document 05/21/17 18:03 [facility] [id number] 05/21/17 18:04 AEC 05/21/17 18:03 Orthostatic Vitals Standing -Blood Pressure (90/60-120/80) 104/74 -Extremity Use Left Arm -Pulse Rate (60-100) 62 Sitting -Blood Pressure (90/60-120/80) 99/64 -Extremity Use Left Arm -Pulse Rate (60-100) 56 L Lying -Blood Pressure (90/60-120/80) 115/59 L -Extremity Use Left Arm -Pulse Rate (60-100) 56 L Intake and Output for Last 24 Hours 05/20/17 05/21/17 05/22/17 23:59 23:59 23:59 Intake Total 873 / 873 Output Total 600 / 600 Balance 273 / 273 Laboratory Tests Past 24 Hrs 05/21/17 05/21/17 05/21/17 19:46 19:46 19:46 WBC RBC Hgb Hct MCV MCH MCHC RDW RDW Differential Plt Count MPV Immature Gran % (Auto) Neut % (Auto) Lymph % (Auto) [place] % (Auto) Eos % (Auto) Baso % (Auto) Absolute Neuts (auto) Absolute Lymphs (auto) Total Counted PT INR Sodium Potassium Chloride Carbon Dioxide Anion Gap BUN Creatinine Estim Creat Clear Calc Est GFR (MDRD) Af Amer Est GFR (MDRD) Non-Af BUN/Creatinine Ratio Glucose Calcium U Random Total Protein 106.1 H Ur Random Sodium 7 Urine Creatinine 354.00 05/22/17 05/22/17 05/22/17 06:10 06:42 06:42 WBC 13.4 H RBC 3.75 L Hgb 11.0 L Hct 32.6 L MCV 86.9 MCH 29.3 MCHC 33.7 RDW 13.4 RDW Differential 41.5 Plt Count 236 MPV 9.2 Immature Gran % (Auto) 0.400 Neut % (Auto) 74.9 H Lymph % (Auto) 16.1 L Norman % (Auto) 5.5 Eos % (Auto) 3.0 Baso % (Auto) 0.1 Absolute Neuts (auto) 10.0 H Absolute Lymphs (auto) 2.15 Total Counted Not Reportable PT 15.8 H INR 1.3 Sodium 136 Potassium 3.5 Chloride 106 Carbon Dioxide 18.0 L Anion Gap 12 BUN 56 H Creatinine 3.42 H Estim Creat Clear Calc 13.97 Est GFR (MDRD) Af Amer 17 L Est GFR (MDRD) Non-Af 14 L BUN/Creatinine Ratio 16.4 Glucose 151 H Calcium 7.7 L U Random Total Protein Ur Random Sodium Urine Creatinine POC Glucose 05/22/17 05/21/17 05/21/17 08:01 22:05 18:13 POC Glucose 124 H 143 H 92 Clinical Impression(s) from Imaging Studies Renal Ultrasound 05/21/17 17:38 IMPRESSION: Normal ultrasound of the kidneys. Borderline wall thickness of the urinary bladder. Electronically Signed: Cosme Syed DO at 21:09 EST Tel [phone], Service support , Assessment/Plan Active and Suspected Problems (Last Reviewed 05/07/17 @ 09:10 by Heather Epps) Dehydration (Acute) Dehydration with hyponatremia (Acute) JILL (acute kidney injury) (Acute) Recurrent falls (Acute) 1. JILL due to dehydration from diarrhea, diuretics, ARB. Agree with holding ARB. Continue with ivf. Creatinine improved from 5.3 to 3.4. Baseline creatinine 0.8 from 05/15. Renal US unremarkable. FeNa <1 consistent with prerenal azotemia. 2. Intractable diarrhea, hx IBs. Await stool cx. Cdiff negative 3. DM2 with neuropathy 4. HTN stable 5. hypokalemia, hyponatremia likely from GI loss, dehydration. Poor oral intake 6. Morbid obesity 7. Hx PE.
[2017-05-22 10:06] LABS: Partial Thromboplast Time 49.1 Seconds (24.1-36.2)
--- NOTE | 2017-05-22 11:03 | CASEMGMT ---
RN NANCIE Face to Face with patient for initial transition planning/care coordination assessment. RN CM introduced self and role at [facility]. Patient lying in bed, alert and oriented, at bedside. Patient willing to participate in assessment and is able to answer all questions appropriately. Care providers, pharmacy, and demographics verified. See link attached. Patient wishes to discharge home, denies need for home health at this time. Patient states she has no further needs or concerns at this time. CM to follow for discharge planning needs that may arise. Disposition Plan: Patient to discharge home with family support and follow-up plans in place.
[2017-05-22] MEDS: Propranolol LA 60 MG Capsule 120 MG PO ×2 (11:23→11:24)
[2017-05-22] MEDS: Pantoprazole Sodium 40 MG Tablet PO (11:24)
[2017-05-22] MEDS: amLODIPine 10 MG Tablet PO (11:25)
[2017-05-22 11:50] LABS: Bedside Glucose 114 mg/dL (70-110)
[2017-05-22] MEDS: Heparin Injection 5,000 UNITS/ML Syringe IV (12:27)
[2017-05-22] MEDS: HEPARIN/D5w 25,000 UNITS 25,000 UNITS/250 ML IV.SOLN. 15 UNITS IV (12:29)
[2017-05-22 17:11] LABS: Bedside Glucose 125 mg/dL (70-110)
[2017-05-22 19:01] LABS: Partial Thromboplast Time 138.1 Seconds (24.1-36.2)
--- NOTE | 2017-05-22 19:28 | NURSING ---
Off going nurse reports she stopped heparin infusion @ 1900.
--- NOTE | 2017-05-22 21:12 | NURSING ---
Heparin gtt restarted at this time, see med titration
[2017-05-22] MEDS: 0.9% NaCl Peripheral Flush Adult/Peds IV (21:34)
--- NOTE | 2017-05-22 21:50 | NURSING ---
Blood sugar re check 85. Complex carb given per policy- crackers, peanut butter and milk.
[2017-05-22] MEDS: Pramipexole Di-HCl 0.5 MG Tablet 1.5 MG PO (22:03)
[2017-05-22 22:26] LABS: Bedside Glucose 85 mg/dL (70-110)
[2017-05-22 22:26] LABS: Bedside Glucose 65 mg/dL (70-110)
[2017-05-23] VITALS (11 sets, daily range): BP systolic 142–178; BP diastolic 57–92; PULSE 63–88; RESP 16–18; TEMP 36.7–37.2; O2SAT 95–98
[2017-05-23] MEDS: 0.9% Normal Saline 1,000 ML 100 ML IV (01:00)
[2017-05-23 01:54] LABS: Partial Thromboplast Time 74.4 Seconds (24.1-36.2)
[2017-05-23] MEDS: Acetaminophen 325 MG Tablet 650 MG PO (06:24)
[2017-05-23 07:15] LABS: Absolute Lymphocyte Count 1.81 X10^3/ul (0.83-4.51); Absolute Neutrophil Count 5.3 X10^3/uL (2.0-7.7); Basophil# 0.01 X10^3/uL; Basophil% 0.1 % (0-1); Eosinophil# 0.28 X10^3/uL; Eosinophils% 3.5 % (0-5); Hematocrit 32.4 % (37-47); Hemoglobin 10.9 g/dl (12.0-15.0); Lymphocyte # 1.81 X10^3/ul (4.0); Lymphocyte % 22.6 % (19-41); Mean Corp Hgb Conc 33.6 g/gl (32-36); Mean Corpuscular Volume 86.2 fL (81-99); Mean Platelet Vol. 9.2 fl (6.2-12.0); Monocyte# 0.52 X10^3/uL; Monocyte% 6.5 % (0-10); Neutrophil # 5.33 X10^3/uL (2.7-7.7); Neutrophil % 66.7 % (47-70); Platelet Count 223 K/mm3 (150-450); RBC Distribution Width CV 13.3 % (11.6-14.6); RBC Distribution Width SD 40.9 fl (35.1-43.9); Red Blood Count 3.76 M/mm3 (4.2-5.4)
[2017-05-23 07:20] LABS: POSITIVE COUNT NO; POSITIVE DIFFERENTIAL NO; POSITIVE MORPHOLOGY NO
[2017-05-23 07:46] LABS: Anion Gap 5 (5-15); BUN 25 mg/dL (7-18); BUN/Creat Ratio 25.2 RATIO (10-20); Calcium,Total 8.3 mg/dL (8.5-10.1); Chloride 111 mmol/L (98-107); Creatinine, Serum 0.99 mg/dL (0.55-1.02); EST Glomerular Filtration Rate 59 mL/min (>60); Est Glom Filt Rate - Afr Amer 72 mL/min (>60); Estimated Creatinine Clearance 48.27 ml/min; Glucose 83 mg/dL (74-106); Potassium 3.2 mmol/L (3.5-5.1); Sodium Level 143 mmol/L (136-145)
[2017-05-23 08:06] LABS: Bedside Glucose 80 mg/dL (70-110)
[2017-05-23] MEDS: Aspirin E.C. 81 MG Tablet PO (08:07)
[2017-05-23] MEDS: Propranolol LA 60 MG Capsule 120 MG PO (08:07)
[2017-05-23 08:11] LABS: Partial Thromboplast Time 86.4 Seconds (24.1-36.2)
[2017-05-23 08:20] LABS: International Normalized Ratio 1.2; Prothrombin Time (Protime)PT. 14.8 SECONDS (11.7-14.9)
[2017-05-23] MEDS: amLODIPine 10 MG Tablet PO (09:27)
[2017-05-23] MEDS: Pantoprazole Sodium 40 MG Tablet PO (09:27)
--- NOTE | 2017-05-23 10:46 | CASEMGMT ---
CANDACE CANADA received notification from physician that patient will need to be on Xarelto and pharmacy contacted physician with cost $145 for 1st month then $100 copay per month. CANDACE CANADA discussed RX insurance coverage and patient states it is through MMO. CANDACE CANADA provided patient with No copay card for Xarelto and instruction patient to call number to set-up RX assistance card. Patient voiced understanding. CANDACE CANADA updated physician.
--- NOTE | 2017-05-23 10:51 | PCM.DC ---
- Discharge Diagnoses Current Active Problems: Current Active and Chronic Problems (Last Reviewed 05/07/17 @ 09:10 by Heather Epps) Dehydration (Acute) Dehydration with hyponatremia (Acute) JILL (acute kidney injury) (Acute) Recurrent falls (Acute) (1) Frequent Falls, Ongoing Diarrhea, Poor Intake, ? Unclear Etiology, ? Gastroenteritis (2) Acute kidney injury, Secondary to #1, dehydration, poor intake, similar presentation in the past, resolved (3) Hypokalemia, Secondary to #1, resolved (4) Hyponatremia, Hypovolemic, secondary to #1 (5) Leukocytosis, secondary to #1, #2, #4, improved (6) Atrial septal defect (7) Hx Pulmonary emboli (routinely subtherapeutic on coumadin, discussed with , amenable to transition to newer oral agent if possible) (8) Hypertension (9) Chronic Asthma (10) RLS (11) SHANNON (12) Morbid Obesity (13) Diabetes mellitus type II (14) Anxiety and depression (15) GERD/PUD You will use the following diet at home:: Cardiac, Other - Advise continued ADA 1800 diet, avoidance OFF ALL artifical sweetners/sugar substitutes INCLUDING DIET SODAS, IF YOU MUST USE ANYTHING, PLEASE TRY STEVIA ONLY. Your food should be the consistency of: Regular Your liquids should be the consistency of: Regular/Thin Discharge Activity: Return to Normal Activity May resume sexual activity in: No Restrictions Weight Bearing Status: Weight bearing as tolerated Call your doctor if you observe: Fever of 101 or Higher, Inability to urinate, Inability to have a bowel movement, Shortness of breath, Dizziness, Fainting spells, Chest pain, Uncontrolled pain Additional Instructions: (1) Diet Alterations Recommendations: Advise continued ADA 1800 diet, avoidance OFF ALL artifical sweetners/sugar substitutes INCLUDING DIET SODAS, IF YOU MUST USE ANYTHING, PLEASE TRY STEVIA ONLY. (2) Diarrhea: Please follow-up with Dr. Randhawa as previously recommended, maintain diet alterations above as noted, please consider follow-up with your PCP to assess possible food allergies as etiology for diarrhea. USE LOMOTIL ROUTINELY NEEDED TO AVOID EXCESSIVE GI LOSSES SECONDARY TO DIARRHEA as this leads to your recurrent acute renal injury. (3) Anticoagulation: Please follow-up with Pulmonary HR ADMINISTRATIVE ASSISTANT to review hospitalization per Dr. Cook recommendation and recent transition to Xarelto from Coumadin as routinely subtherapeutic. Case Management/Social Work verified that you are able to get coverage from Xarelto for 1 year. Please assure you perform all the required activities (call number on care given to arrange) to assure this coverage occurs. (4) Follow-up labs: Please have repeat basic metabolic panel (BMP) at follow-up with your primary care physician. You have been restarted on all of your blood pressure regimen, including the losartan since your renal function has normalized. Allergies/Adverse Reactions: Allergies latex Allergy (Verified 05/21/17 13:29) Itching zolpidem [From Ambien] Adverse Reaction (Severe, Verified 05/21/17 13:29) Sleep walking/talking environmental Allergy (Uncoded 05/21/17 13:29) Other Medications to take at Discharge Ropinirole HCl [Requip] 4 mg PO QHS 02/23/13 amlodipine 10 mg tablet 10 mg PO QDAY 02/28/17 chlorthalidone 25 mg tablet 25 mg PO QAM tab 02/28/17 ergocalciferol (vitamin D2) 50,000 unit capsule 50,000 unit PO QMONTH 02/28/17 losartan 100 mg tablet 100 mg PO QDAY 02/28/17 omeprazole 40 mg capsule,delayed release 40 mg PO QDAY 02/28/17 propranolol ER 120 mg capsule,24 hr,extended release 120 mg PO QDAY 02/28/17 insulin human U-100 NPH-regulr 70-30 mix 100 unit/mL subcutaneous susp 30 unit SC BREAKFAST 03/03/17 Gabapentin [Neurontin] 800 mg PO 4X/DAY 03/27/17 Insulin Human 70/30 [Novolog Mix 70-30 Flexpen Syrn] 45 units SC LUNCH 03/27/17 Insulin Human 70/30 [Novolog Mix 70-30 Flexpen Syrn] 75 units SC DINNER 03/27/17 Loperamide [Imodium] 2 mg PO Q4H PRN PRN #20 cap 04/01/17 Ondansetron [Zofran Odt] 4 mg PO Q8H PRN PRN #10 tab 05/15/17 Albuterol IH (ProAir) [Proair Hfa] 1 - 2 puff INHALATION Q4H PRN PRN #1 inhaler 05/23/17 Potassium Chloride [K-Dur] 40 meq PO QHS #60 tab 05/23/17 Rivaroxaban [Xarelto] 1 tab PO UD #51 tab 05/23/17 The following prescriptions were given: Albuterol IH (ProAir) [Proair Hfa] 1 - 2 puff INHALATION Q4H PRN PRN #1 inhaler PRN Reason: dyspnea, wheezing Potassium Chloride [K-Dur] 40 meq PO QHS #60 tab Rivaroxaban [Xarelto] 1 tab PO UD #51 tab Primary Care Physician: Kaz Cervantes DO [Primary Care Provider] - Please follow up with your Primary Care Physician in: Follow-up within 3-5 days to review admission. Please Follow Up With: Ira Matute NP-C When: Follow-up with Pulmonary HR ADMINISTRATIVE ASSISTANT within 1-2 week to review admission. Please Follow Up With: Chuy Randhawa MD When: Follow-up with Gastroenterology to review alternate causes of diarrhea. Proposed Discharge Date: 05/23/17
--- NOTE | 2017-05-23 11:01 | DCINST_ITS ---
- Discharge Diagnoses Current Active Problems: Current Active and Chronic Problems (Last Reviewed 05/07/17 @ 09:10 by Heather Epps) Dehydration (Acute) Dehydration with hyponatremia (Acute) JILL (acute kidney injury) (Acute) Recurrent falls (Acute) (1) Frequent Falls, Ongoing Diarrhea, Poor Intake, ? Unclear Etiology, ? Gastroenteritis (2) Acute kidney injury, Secondary to #1, dehydration, poor intake, similar presentation in the past, resolved (3) Hypokalemia, Secondary to #1, resolved (4) Hyponatremia, Hypovolemic, secondary to #1 (5) Leukocytosis, secondary to #1, #2, #4, improved (6) Atrial septal defect (7) Hx Pulmonary emboli (routinely subtherapeutic on coumadin, discussed with , amenable to transition to newer oral agent if possible) (8) Hypertension (9) Chronic Asthma (10) RLS (11) SHANNON (12) Morbid Obesity (13) Diabetes mellitus type II (14) Anxiety and depression (15) GERD/PUD You will use the following diet at home:: Cardiac, Other - Advise continued ADA 1800 diet, avoidance OFF ALL artifical sweetners/sugar substitutes INCLUDING DIET SODAS, IF YOU MUST USE ANYTHING, PLEASE TRY STEVIA ONLY. Your food should be the consistency of: Regular Your liquids should be the consistency of: Regular/Thin Discharge Activity: Return to Normal Activity May resume sexual activity in: No Restrictions Weight Bearing Status: Weight bearing as tolerated Call your doctor if you observe: Fever of 101 or Higher, Inability to urinate, Inability to have a bowel movement, Shortness of breath, Dizziness, Fainting spells, Chest pain, Uncontrolled pain Additional Instructions: (1) Diet Alterations Recommendations: Advise continued ADA 1800 diet, avoidance OFF ALL artifical sweetners/sugar substitutes INCLUDING DIET SODAS, IF YOU MUST USE ANYTHING, PLEASE TRY STEVIA ONLY. (2) Diarrhea: Please follow-up with Dr. Randhawa as previously recommended, maintain diet alterations above as noted, please consider follow-up with your PCP to assess possible food allergies as etiology for diarrhea. USE LOMOTIL ROUTINELY NEEDED TO AVOID EXCESSIVE GI LOSSES SECONDARY TO DIARRHEA as this leads to your recurrent acute renal injury. (3) Anticoagulation: Please follow-up with Pulmonary OIL EXPELLER to review hospitalization per Dr. Cook recommendation and recent transition to Xarelto from Coumadin as routinely subtherapeutic. Case Management /Social Work verified that you are able to get coverage from Xarelto for 1 year. Please assure you perform all the required activities (call number on care given to arrange) to assure this coverage occurs. (4) Follow-up labs: Please have repeat basic metabolic panel (BMP) at follow-up with your primary care physician. You have been restarted on all of your blood pressure regimen, including the losartan since your renal function has normalized. Allergies/Adverse Reactions: Allergies latex Allergy (Verified 05/21/17 13:29) Itching zolpidem [From Ambien] Adverse Reaction (Severe, Verified 05/21/17 13:29) Sleep walking/talking environmental Allergy (Uncoded 05/21/17 13:29) Other Medications to take at Discharge Ropinirole HCl [Requip] 4 mg PO QHS 02/23/13 amlodipine 10 mg tablet 10 mg PO QDAY 02/28/17 chlorthalidone 25 mg tablet 25 mg PO QAM tab 02/28/17 ergocalciferol (vitamin D2) 50,000 unit capsule 50,000 unit PO QMONTH 02/28/17 losartan 100 mg tablet 100 mg PO QDAY 02/28/17 omeprazole 40 mg capsule,delayed release 40 mg PO QDAY 02/28/17 propranolol ER 120 mg capsule,24 hr,extended release 120 mg PO QDAY 02/28/17 insulin human U-100 NPH-regulr 70-30 mix 100 unit/mL subcutaneous susp 30 unit SC BREAKFAST 03/03/17 Gabapentin [Neurontin] 800 mg PO 4X/DAY 03/27/17 Insulin Human 70/30 [Novolog Mix 70-30 Flexpen Syrn] 45 units SC LUNCH 03/27/17 Insulin Human 70/30 [Novolog Mix 70-30 Flexpen Syrn] 75 units SC DINNER Loperamide [Imodium] 2 mg PO Q4H PRN PRN #20 cap 04/01/17 Ondansetron [Zofran Odt] 4 mg PO Q8H PRN PRN #10 tab 05/15/17 Albuterol IH (ProAir) [Proair Hfa] 1 - 2 puff INHALATION Q4H PRN PRN #1 inhaler 05/23/17 Potassium Chloride [K-Dur] 40 meq PO QHS #60 tab 05/23/17 Rivaroxaban [Xarelto] 1 tab PO UD #51 tab 05/23/17 The following prescriptions were given: Albuterol IH (ProAir) [Proair Hfa] 1 - 2 puff INHALATION Q4H PRN PRN #1 inhaler PRN Reason: dyspnea, wheezing Potassium Chloride [K-Dur] 40 meq PO QHS #60 tab Rivaroxaban [Xarelto] 1 tab PO UD #51 tab Primary Care Physician: Kaz Cervantes DO [Primary Care Provider] - Please follow up with your Primary Care Physician in: Follow-up within 3-5 days to review admission. Please Follow Up With: Ira Matute NP-C When: Follow-up with Pulmonary OIL EXPELLER within 1-2 week to review admission. Please Follow Up With: Chuy Randhawa MD When: Follow-up with Gastroenterology to review alternate causes of diarrhea. Proposed Discharge Date: 05/23/17
--- NOTE | 2017-05-23 11:03 | PCM.DC.SUM ---
Discharge Date and Diagnosis - Problem List Patient Problems: Active and Suspected Problems (Last Reviewed 05/07/17 @ 09:10 by Heather Epps) Dehydration (Acute) Dehydration with hyponatremia (Acute) JILL (acute kidney injury) (Acute) Recurrent falls (Acute) Date of Admission: 05/21/17 Date of Discharge: 05/23/17 - Primary Discharge Diagnosis Active and Suspected Problems (Last Reviewed 05/07/17 @ 09:10 by Heather Epps) (1) Frequent Falls, Ongoing Diarrhea, Poor Intake, ? Unclear Etiology, ? Gastroenteritis (2) Acute kidney injury, Secondary to #1, dehydration, poor intake, similar presentation in the past, resolved (3) Hypokalemia, Secondary to #1, resolved (4) Hyponatremia, Hypovolemic, secondary to #1 (5) Leukocytosis, secondary to #1, #2, #4, improved (6) Atrial septal defect (7) Hx Pulmonary emboli (routinely subtherapeutic on coumadin, discussed with , amenable to transition to newer oral agent if possible) (8) Hypertension (9) Chronic Asthma (10) RLS (11) SHANNON (12) Morbid Obesity (13) Diabetes mellitus type II (14) Anxiety and depression (15) GERD/PUD - Secondary Discharge Diagnosis Chronic Problems (Last Reviewed 05/07/17 @ 09:10 by Heather Epps) Seasonal allergies (Chronic) Chronic bronchitis (Chronic) Vitamin D deficiency (Chronic) Hyperlipidemia (Chronic) Diabetic peripheral neuropathy (Chronic) Hypokalemia (Chronic) IBS (irritable bowel syndrome) (Chronic) Insomnia (Chronic) Spinal stenosis of lumbar region (Chronic) DDD (degenerative disc disease), cervical (Chronic) Disequilibrium (Chronic) Dyspnea on exertion (Chronic) GERD (gastroesophageal reflux disease) (Chronic) Morbid obesity (Chronic) Atrial septal defect (Chronic) Pulmonary emboli (Chronic) Asthma (Chronic) DM (diabetes mellitus), type 2, uncontrolled (Chronic) Hypertension (Chronic) BP slightly elevated upon arrival. Recheck 130/82 Taking medication as directed. Restless leg syndrome (Chronic) Anxiety and depression (Chronic) SHANNON (obstructive sleep apnea) (Chronic) Obesity (BMI 35.0-39.9 without comorbidity) (Chronic) Hospital Course and Treatment Dr. Wooten Nephrology Operations: None Procedures: EKG Summary of Care Provided: The patient is a 66 y/o F w/ PMHx: GERD/PUD, Atrial septal defect, Hx Pulmonary emboli on anticoagulation with coumadin, HTN, Asthma, RLS, SHANNON, Morbid Obesity, Diabetes Mellitus type II, Anxiety and depression who presented to the [facility] ED on 05/22/17 with ongoing falls, malaise, ongoing diarrhea which she has had in the past also with unremarkable labs studies prior. Admitted to [facility], continue hydration, c-diff negative, stools normalized and x 1 only following admission thus unable to obtain enteric pathogen and O+P. Prior admission w/ CT A/P 03/2017 unremarkable at that time. Patient recurrent Jill secondary to GI losses, again which have corrected, similar presentation prior, admission BUN/Cr 59/5.31, baseline Cr prior 0.7-0.9, continued hydration, 05/22/17 BUN/Cr 56/3.42-->34/05/11 BUN/Cr 25/0.99 with evaluation including renal US unremarkable aside mild bladder thickening, FeNa 0.08%, David 7, both consistent with extrarenal losses. Given JILL resolution, patient restarted on her full BP regimen including ARB. Nephrology consulted, agreed to IVFs, pre-renal assessment. Potassium supplemented and home oral regimen increased. During admission noted routine upon INR assessment subtherapeutic. Discussed patient with Pulmonary, Dr. Cook (follows w/ Pulmonary, Dr. Waggoner) and review of records with possible need for continued anticoagulation thus patient transitioned to Xarelto regimen with confirmation from CM/SW coverage x 1 year. Reviewed diet with patient and strongly advised avoidance of artificial sugar agents as notes marked diet soda intake which could be contribution to her diarrhea, recommended strict usage of lomotil with GI re-assessment and consideration of food allergies as possible etiology. Given clinical improvement, patient discharged to home in stable improved condition. DAY OF DISCHARGE PROGRESS NOTE: Subjective: Patient without acute event overnight per self and nursing report. Patient has had only 1 improved formed stool since admission. No further diarrhea. No nausea or emesis, tolerating diet. Patient denies fever, chills, abdominal pain, chest pain or dyspnea. Patient agreeable to discharge to home especially given PT/OT assessment with no needs. Patient will be discharged with follow-up with primary care physician within 3-5 days in addition to GI re-evaluation recommendation and follow-up with Pulmonary. Objective: T 98.4, HR 60s, BP 166/92, RR 18, 98% on RA. Physical Examination: General: awake, alert, oriented x 3 and cooperative, seated upright in bed, improved appearance, NAD. Skin: normal color, turgor, no icterus, cyanosis. HEENT: AT/NC, EOMI, PERRLA, MMM. Lungs: CTA bilaterally, moderate effort, mild decrease BL bases, no rales, ronchi or wheezing. Heart: Regular rate and rhythm; no gallop, rub audible. Abdomen: soft, obese, NTTP, ND, normalized BS. Extremities: no cyanosis, clubbing, or edema. Neurological: patient awake, alert, oriented x 3; cognitive function intact; pupils equally reactive to light and accomodation; cranial nerves II-XII grossly normal, moving all 4 extremities, no focal deficits, strength improved, mildly globally decreased. Psychiatric: affect appears normal, no acute evidence of depressive or anxiety feelings. Assessment and Plan: Please see hospital summary above. Discharge Activity: Return to Normal Activity May resume sexual activity in: No Restrictions Weight Bearing Status: Weight bearing as tolerated Call your doctor if you observe: Fever of 101 or Higher, Inability to urinate, Inability to have a bowel movement, Shortness of breath, Dizziness, Fainting spells, Chest pain, Uncontrolled pain Home Medications: Medications to take at Discharge Ropinirole HCl [Requip] 4 mg PO QHS 02/23/13 amlodipine 10 mg tablet 10 mg PO QDAY 02/28/17 chlorthalidone 25 mg tablet 25 mg PO QAM tab 02/28/17 ergocalciferol (vitamin D2) 50,000 unit capsule 50,000 unit PO QMONTH 02/28/17 losartan 100 mg tablet 100 mg PO QDAY 02/28/17 omeprazole 40 mg capsule,delayed release 40 mg PO QDAY 02/28/17 propranolol ER 120 mg capsule,24 hr,extended release 120 mg PO QDAY 02/28/17 insulin human U-100 NPH-regulr 70-30 mix 100 unit/mL subcutaneous susp 30 unit SC BREAKFAST 03/03/17 Gabapentin [Neurontin] 800 mg PO 4X/DAY 03/27/17 Insulin Human 70/30 [Novolog Mix 70-30 Flexpen Syrn] 45 units SC LUNCH 03/27/17 Insulin Human 70/30 [Novolog Mix 70-30 Flexpen Syrn] 75 units SC DINNER 03/27/17 Loperamide [Imodium] 2 mg PO Q4H PRN PRN #20 cap 04/01/17 Ondansetron [Zofran Odt] 4 mg PO Q8H PRN PRN #10 tab 05/15/17 Albuterol IH (ProAir) [Proair Hfa] 1 - 2 puff INHALATION Q4H PRN PRN #1 inhaler 05/23/17 Potassium Chloride [K-Dur] 40 meq PO QHS #60 tab 05/23/17 Rivaroxaban [Xarelto] 1 tab PO UD #51 tab 05/23/17 Following Prescrptions Were Given to Patient: Albuterol IH (ProAir) [Proair Hfa] 1 - 2 puff INHALATION Q4H PRN PRN #1 inhaler PRN Reason: dyspnea, wheezing Potassium Chloride [K-Dur] 40 meq PO QHS #60 tab Rivaroxaban [Xarelto] 1 tab PO UD #51 tab Primary Care Physician: Kaz Cervantes DO [Primary Care Provider] - Please follow up with your Primary Care Physician in: Follow-up within 3-5 days to review admission. Please Follow Up With: Ira Matute NP-C When: Follow-up with Pulmonary FOOD TESTER within 1-2 week to review admission. Please Follow Up With: Chuy Randhawa MD When: Follow-up with Gastroenterology to review alternate causes of diarrhea. Disposition: Home Minutes spent on discharge:: 35 Patient Condition:: Fair Meaningful Use Info Meaningful Use Diagnoses (Choose all that apply): None applicable Code Visit Inpatient E&M: 35918 Disch Hosp
--- NOTE | 2017-05-23 11:16 | DS.PCM_ITS ---
Discharge Date and Diagnosis - Problem List Patient Problems: Active and Suspected Problems (Last Reviewed 05/07/17 @ 09:10 by Heather Epps ) Dehydration (Acute) Dehydration with hyponatremia (Acute) JILL (acute kidney injury) (Acute) Recurrent falls (Acute) Date of Admission: 05/21/17 Date of Discharge: 05/23/17 - Primary Discharge Diagnosis Active and Suspected Problems (Last Reviewed 05/07/17 @ 09:10 by Heather Epps ) (1) Frequent Falls, Ongoing Diarrhea, Poor Intake, ? Unclear Etiology, ? Gastroenteritis (2) Acute kidney injury, Secondary to #1, dehydration, poor intake, similar presentation in the past, resolved (3) Hypokalemia, Secondary to #1, resolved (4) Hyponatremia, Hypovolemic, secondary to #1 (5) Leukocytosis, secondary to #1, #2, #4, improved (6) Atrial septal defect (7) Hx Pulmonary emboli (routinely subtherapeutic on coumadin, discussed with , amenable to transition to newer oral agent if possible) (8) Hypertension (9) Chronic Asthma (10) RLS (11) SHANNON (12) Morbid Obesity (13) Diabetes mellitus type II (14) Anxiety and depression (15) GERD/PUD - Secondary Discharge Diagnosis Chronic Problems (Last Reviewed 05/07/17 @ 09:10 by Heather Epps) Seasonal allergies (Chronic) Chronic bronchitis (Chronic) Vitamin D deficiency (Chronic) Hyperlipidemia (Chronic) Diabetic peripheral neuropathy (Chronic) Hypokalemia (Chronic) IBS (irritable bowel syndrome) (Chronic) Insomnia (Chronic) Spinal stenosis of lumbar region (Chronic) DDD (degenerative disc disease), cervical (Chronic) Disequilibrium (Chronic) Dyspnea on exertion (Chronic) GERD (gastroesophageal reflux disease) (Chronic) Morbid obesity (Chronic) Atrial septal defect (Chronic) Pulmonary emboli (Chronic) Asthma (Chronic) DM (diabetes mellitus), type 2, uncontrolled (Chronic) Hypertension (Chronic) BP slightly elevated upon arrival. Recheck 130/82 Taking medication as directed. Restless leg syndrome (Chronic) Anxiety and depression (Chronic) SHANNON (obstructive sleep apnea) (Chronic) Obesity (BMI 35.0-39.9 without comorbidity) (Chronic) Hospital Course and Treatment Dr. Wooten Nephrology Operations: None Procedures: EKG Summary of Care Provided: The patient is a 66 y/o F w/ PMHx: GERD/PUD, Atrial septal defect, Hx Pulmonary emboli on anticoagulation with coumadin, HTN, Asthma, RLS, SHANNON, Morbid Obesity, Diabetes Mellitus type II, Anxiety and depression who presented to the [facility] ED on 05/22/17 with ongoing falls, malaise, ongoing diarrhea which she has had in the past also with unremarkable labs studies prior. Admitted to [place], continue hydration, c-diff negative, stools normalized and x 1 only following admission thus unable to obtain enteric pathogen and O+P. Prior admission w/ CT A/P 2017 unremarkable at that time. Patient recurrent Jill secondary to GI losses, again which have corrected, similar presentation prior, admission BUN/Cr 59/5.31 , baseline Cr prior 0.7-0.9, continued hydration, 05/22/17 BUN/Cr 56/3.42-->34/ BUN/Cr 25/0.99 with evaluation including renal US unremarkable aside mild bladder thickening, FeNa 0.08%, David 7, both consistent with extrarenal losses. Given JILL resolution, patient restarted on her full BP regimen including ARB. Nephrology consulted, agreed to IVFs, pre-renal assessment. Potassium supplemented and home oral regimen increased. During admission noted routine upon INR assessment subtherapeutic. Discussed patient with Pulmonary, Dr. Cook (follows w/ Pulmonary, Dr. Waggoner) and review of records with possible need for continued anticoagulation thus patient transitioned to Xarelto regimen with confirmation from CM/SW coverage x 1 year. Reviewed diet with patient and strongly advised avoidance of artificial sugar agents as notes marked diet soda intake which could be contribution to her diarrhea, recommended strict usage of lomotil with GI re-assessment and consideration of food allergies as possible etiology. Given clinical improvement, patient discharged to home in stable improved condition. DAY OF DISCHARGE PROGRESS NOTE: Subjective: Patient without acute event overnight per self and nursing report. Patient has had only 1 improved formed stool since admission. No further diarrhea. No nausea or emesis, tolerating diet. Patient denies fever, chills, abdominal pain, chest pain or dyspnea. Patient agreeable to discharge to home especially given PT/OT assessment with no needs. Patient will be discharged with follow-up with primary care physician within 3-5 days in addition to GI re- evaluation recommendation and follow-up with Pulmonary. Objective: T 98.4, HR 60s, BP 166/92, RR 18, 98% on RA. Physical Examination: General: awake, alert, oriented x 3 and cooperative, seated upright in bed, improved appearance, NAD. Skin: normal color, turgor, no icterus, cyanosis. HEENT: AT/NC, EOMI, PERRLA, MMM. Lungs: CTA bilaterally, moderate effort, mild decrease BL bases, no rales, ronchi or wheezing. Heart: Regular rate and rhythm; no gallop, rub audible. Abdomen: soft, obese, NTTP, ND, normalized BS. Extremities: no cyanosis, clubbing, or edema. Neurological: patient awake, alert, oriented x 3; cognitive function intact; pupils equally reactive to light and accomodation; cranial nerves II-XII grossly normal, moving all 4 extremities, no focal deficits, strength improved, mildly globally decreased. Psychiatric: affect appears normal, no acute evidence of depressive or anxiety feelings. Assessment and Plan: Please see hospital summary above. Discharge Activity: Return to Normal Activity May resume sexual activity in: No Restrictions Weight Bearing Status: Weight bearing as tolerated Call your doctor if you observe: Fever of 101 or Higher, Inability to urinate, Inability to have a bowel movement, Shortness of breath, Dizziness, Fainting spells, Chest pain, Uncontrolled pain Home Medications: Medications to take at Discharge Ropinirole HCl [Requip] 4 mg PO QHS 02/23/13 amlodipine 10 mg tablet 10 mg PO QDAY 02/28/17 chlorthalidone 25 mg tablet 25 mg PO QAM tab 02/28/17 ergocalciferol (vitamin D2) 50,000 unit capsule 50,000 unit PO QMONTH 02/28/17 losartan 100 mg tablet 100 mg PO QDAY 02/28/17 omeprazole 40 mg capsule,delayed release 40 mg PO QDAY 02/28/17 propranolol ER 120 mg capsule,24 hr,extended release 120 mg PO QDAY 02/28/17 insulin human U-100 NPH-regulr 70-30 mix 100 unit/mL subcutaneous susp 30 unit SC BREAKFAST 03/03/17 Gabapentin [Neurontin] 800 mg PO 4X/DAY 03/27/17 Insulin Human 70/30 [Novolog Mix 70-30 Flexpen Syrn] 45 units SC LUNCH 03/27/17 Insulin Human 70/30 [Novolog Mix 70-30 Flexpen Syrn] 75 units SC DINNER Loperamide [Imodium] 2 mg PO Q4H PRN PRN #20 cap 04/01/17 Ondansetron [Zofran Odt] 4 mg PO Q8H PRN PRN #10 tab 05/15/17 Albuterol IH (ProAir) [Proair Hfa] 1 - 2 puff INHALATION Q4H PRN PRN #1 inhaler 05/23/17 Potassium Chloride [K-Dur] 40 meq PO QHS #60 tab 05/23/17 Rivaroxaban [Xarelto] 1 tab PO UD #51 tab 05/23/17 Following Prescrptions Were Given to Patient: Albuterol IH (ProAir) [Proair Hfa] 1 - 2 puff INHALATION Q4H PRN PRN #1 inhaler PRN Reason: dyspnea, wheezing Potassium Chloride [K-Dur] 40 meq PO QHS #60 tab Rivaroxaban [Xarelto] 1 tab PO UD #51 tab Primary Care Physician: Kaz Cervantes DO [Primary Care Provider] - Please follow up with your Primary Care Physician in: Follow-up within 3-5 days to review admission. Please Follow Up With: Ira Matute NP-C When: Follow-up with Pulmonary A OPERATOR within 1-2 week to review admission. Please Follow Up With: Chuy Randhawa MD When: Follow-up with Gastroenterology to review alternate causes of diarrhea. Disposition: Home Minutes spent on discharge:: 35 Patient Condition:: Fair Meaningful Use Info Meaningful Use Diagnoses (Choose all that apply): None applicable Code Visit Inpatient E&M: 37452 Disch Hosp
[2017-05-23] MEDS: Enoxaparin 120 MG/0.8 ML Syringe 110 MG SC (11:34)
--- NOTE | 2017-05-23 12:04 | PN.RENAL_ITS ---
Patient Problems: Active and Suspected Problems (Last Reviewed 05/07/17 @ 09:10 by Heather Epps ) Dehydration (Acute) Dehydration with hyponatremia (Acute) JILL (acute kidney injury) (Acute) Recurrent falls (Acute) Subjective: Renal function improved. Diarrhea resolved. She has been off metformin at home due to complaints of chronic diarrhea. Follow-up with SHABNAM da silva started sugar management. - Physical Exam General: Alert, Oriented x3, Cooperative, No apparent distress Cardiovascular: Regular rate Abdomen: Bowel Sounds Present, Soft, Non Tender, Non-Distended, Obese Psych/Mental Status: Normal Affect, Appropriate, Alert and oriented to time, place, person, mood and affect Vital Signs Temp Pulse Resp BP Pulse Ox 98.4 F 68 18 174/86 H 98 05/23/17 08:04 05/23/17 11:37 05/23/17 08:04 05/23/17 11:37 05/23/17 08:04 Oxygen Delivery Method Room Air Weight: 106.4 kg Body Mass Index (BMI) 39.2 Orthostatic Vital Signs Start: 05/21/17 18:03 Freq: q24h Status: Active Protocol: Activity Type Activity Date Activity User E-Sign Co-Sign Detail Recorded Client Recorded Date Recorded By Document 05/22/17 21:40 BDM [id number] 05/22/17 21:46 BDM 05/22/17 21:40 Orthostatic Vitals Standing -Blood Pressure (90/60-120/80) 120/48 L -Extremity Use Left Arm -Pulse Rate (60-100) 72 Sitting -Blood Pressure (90/60-120/80) 134/67 H -Extremity Use Left Arm -Pulse Rate (60-100) 70 Lying -Blood Pressure (90/60-120/80) 132/62 H -Extremity Use Left Arm -Pulse Rate (60-100) 72 Intake and Output for Last 24 Hours 05/21/17 05/22/17 05/23/17 23:59 23:59 23:59 Intake Total 4273 / 4273 2699.7 / 2699.7 Output Total 2250 / 2250 2450 / 2450 Balance 2022 / 2022 249.7 / 249.7 Laboratory Tests Past 24 Hrs 05/22/17 05/23/17 05/23/17 18:12 01:30 07:00 WBC 8.0 RBC 3.76 L Hgb 10.9 L Hct 32.4 L MCV 86.2 MCH 29.0 MCHC 33.6 RDW 13.3 RDW Differential 40.9 Plt Count 223 MPV 9.2 Immature Gran % (Auto) 0.600 Neut % (Auto) 66.7 Lymph % (Auto) 22.6 [place] % (Auto) 6.5 Eos % (Auto) 3.5 Baso % (Auto) 0.1 Absolute Neuts (auto) 5.3 Absolute Lymphs (auto) 1.81 Total Counted Not Reportable PT INR APTT 138.1 H* 74.4 H Sodium Potassium Chloride Carbon Dioxide Anion Gap BUN Creatinine Estim Creat Clear Calc Est GFR (MDRD) Af Amer Est GFR (MDRD) Non-Af BUN/Creatinine Ratio Glucose Calcium 05/23/17 05/23/17 05/23/17 07:00 07:00 07:00 WBC RBC Hgb Hct MCV MCH MCHC RDW RDW Differential Plt Count MPV Immature Gran % (Auto) Neut % (Auto) Lymph % (Auto) [place] % (Auto) Eos % (Auto) Baso % (Auto) Absolute Neuts (auto) Absolute Lymphs (auto) Total Counted PT 14.8 INR 1.2 APTT 86.4 H Sodium 143 Potassium 3.2 L Chloride 111 H Carbon Dioxide 27.0 Anion Gap 5 BUN 25 H Creatinine 0.99 Estim Creat Clear Calc 48.27 Est GFR (MDRD) Af Amer 72 Est GFR (MDRD) Non-Af 59 L BUN/Creatinine Ratio 25.2 H Glucose 83 Calcium 8.3 L POC Glucose 05/23/17 05/22/17 05/22/17 07:58 21:53 21:27 POC Glucose 80 85 65 L 05/22/17 17:04 POC Glucose 125 H Assessment/Plan Active and Suspected Problems (Last Reviewed 05/07/17 @ 09:10 by Heather Epps ) Dehydration (Acute) Dehydration with hyponatremia (Acute) JILL (acute kidney injury) (Acute) Recurrent falls (Acute) 1. JILL due to dehydration from diarrhea, diuretics, ARB. Okay to resume ARB since renal function back to baseline. Creatinine improved from 5.3 on admit to 0.99. Baseline creatinine 0.8 from 05/15. Renal US unremarkable. FeNa <1 consistent with prerenal azotemia. 2. Intractable diarrhea, hx IBS. Further diarrhea 3. DM2 with neuropathy 4. HTN stable 5. hypokalemia, hyponatremia resolved 6. Morbid obesity
[2017-05-23 12:10] LABS: Bedside Glucose 106 mg/dL (70-110)
[2017-05-23 17:56] LABS: Bedside Glucose 75 mg/dL (70-110)
== END 2017-05-23 18:29 | disposition home or self-care (01) | DRG 683 ==
LOC: ED 16:51 → MS3 16:58
PROVIDERS: Internal Medicine Nephrology; Admitting Provider Internal Medicine; Emergency Provider Emergency Medicine; Family Provider Family Medicine; PCP Family Medicine; Visit Provider Family Medicine
DX: N17.9 Acute kidney failure, unspecified (principal); E87.1 Hypo-osmolality and hyponatremia; E11.42 Type 2 diabetes mellitus with diabetic polyneuropathy; Z68.41 Body mass index [BMI] 40.0-44.9, adult; E11.65 Type 2 diabetes mellitus with hyperglycemia; K52.9 Noninfective gastroenteritis and colitis, unspecified; E66.01 Morbid (severe) obesity due to excess calories; E86.0 Dehydration; R29.6 Repeated falls; E87.6 Hypokalemia; G47.33 Obstructive sleep apnea (adult) (pediatric); K21.9 Gastro-esophageal reflux disease without esophagitis; G25.81 Restless legs syndrome; J45.909 Unspecified asthma, uncomplicated; I10 Essential (primary) hypertension; F41.9 Anxiety disorder, unspecified; F32.9 Major depressive disorder, single episode, unspecified; E55.9 Vitamin D deficiency, unspecified; E78.5 Hyperlipidemia, unspecified; M50.30 Other cervical disc degeneration, unspecified cervical region; Z71.3 Dietary counseling and surveillance; Z86.711 Personal history of pulmonary embolism; M48.061 Spinal stenosis, lumbar region without neurogenic claudication; G89.29 Other chronic pain
CPT/HCPCS: 36415; 76770; 80048; 82570; 82962; 84156; 84300; 85025; 85610; 85730; 93005; 97162; 97166; 97802; 99284; J7030; A4216; J2405

== ENCOUNTER → 2017-06-05 11:21 | Outpatient (CLI) | payer OTHER, MEDICARE, SELFPAY ==
[2017-06-05 16:20] LABS: Anion Gap 5 (5-15); BUN 30 mg/dL (7-18); BUN/Creat Ratio 25.2 RATIO (10-20); Calcium,Total 9.2 mg/dL (8.5-10.1); Chloride 99 mmol/L (98-107); Creatinine, Serum 1.19 mg/dL (0.55-1.02); EST Glomerular Filtration Rate 48 mL/min (>60); Est Glom Filt Rate - Afr Amer 58 mL/min (>60); Glucose 84 mg/dL (74-106); Potassium 4.4 mmol/L (3.5-5.1); Sodium Level 139 mmol/L (136-145); Thyroid Stim Hormone (TSH) 3.11 uIU/mL (0.358-3.74)
== END ==
PROVIDERS: Family Provider Family Medicine; PCP Family Medicine; Visit Provider Family Medicine
DX: N17.9 Acute kidney failure, unspecified (principal); N18.3 Chronic kidney disease, stage 3 (moderate); R53.83 Other fatigue
CPT/HCPCS: 36415; 80048; 84443

== ENCOUNTER → 2017-07-01 15:40 | Outpatient (CLI) | payer OTHER, SELFPAY | PROVIDERS: Family Provider Family Medicine; PCP Family Medicine; Visit Provider Nurse Practitioner Acute Care | DX: G47.33 Obstructive sleep apnea (adult) (pediatric) (principal) | CPT/HCPCS: 98960; G0463 ==

== ENCOUNTER → 2017-10-13 08:25 | Outpatient (CLI) | payer OTHER, SELFPAY ==
[2017-10-13 10:34] LABS: Microalbumin:Creatinine Ratio 349.3 mg/g CRE (<30 mg/g CRE)
[2017-10-13 10:53] LABS: ALB/GLOB Ratio 0.8 RATIO (0.9-2.4); AST(SGOT) 16 U/L (15-37); Alanine Aminotransfer ALT/SGPT 24 U/L (13-56); Albumin, Serum 3.4 g/dL (3.2-5.0); Alkaline Phosphatase 71 U/L (45-117); Anion Gap 10 (5-15); BUN 18 mg/dL (7-18); BUN/Creat Ratio 17.5 RATIO (10-20); Calcium,Total 9.3 mg/dL (8.5-10.1); Chloride 105 mmol/L (98-107); Cholesterol 206 mg/dL (200); Creatinine, Serum 1.03 mg/dL (0.55-1.02); EST Glomerular Filtration Rate 57 mL/min (>60); Est Glom Filt Rate - Afr Amer 69 mL/min (>60); Globulin 4.1 g/dL (2.2-4.2); Glucose 148 mg/dL (74-106); High Density Lipoprotein 39 mg/dL; Protein, Total 7.5 g/dL (6.4-8.2); Sodium Level 144 mmol/L (136-145); Triglycerides 174 mg/dL; Very Low Density Lipoprotein 35 mg/dL (5-40)
== END ==
PROVIDERS: Family Provider Family Medicine; PCP Family Medicine; Visit Provider Nurse Practitioner
DX: E11.65 Type 2 diabetes mellitus with hyperglycemia (principal)
CPT/HCPCS: 36415; 80053; 80061; 82043; 82570

== ENCOUNTER → 2017-11-28 10:29 | Outpatient (CLI) | payer OTHER, SELFPAY ==
[2017-11-28 12:25] LABS: Anion Gap 9 (5-15); BUN 22 mg/dL (7-18); BUN/Creat Ratio 18.5 RATIO (10-20); Calcium,Total 9.2 mg/dL (8.5-10.1); Chloride 103 mmol/L (98-107); Creatinine, Serum 1.19 mg/dL (0.55-1.02); EST Glomerular Filtration Rate 48 mL/min (>60); Est Glom Filt Rate - Afr Amer 58 mL/min (>60); Glucose 165 mg/dL (74-106); Potassium 4.2 mmol/L (3.5-5.1); Sodium Level 142 mmol/L (136-145)
== END ==
PROVIDERS: Family Provider Family Medicine; PCP Family Medicine; Visit Provider Family Medicine
DX: I10 Essential (primary) hypertension (principal); E87.6 Hypokalemia
CPT/HCPCS: 36415; 80048

== ENCOUNTER → 2017-12-12 16:04 | Outpatient (CLI) | payer OTHER, SELFPAY ==
--- NOTE | 2017-12-12 16:07 | RAD_ITS ---
STUDY: X-RAY - PELVIS AND LEFT HIP REASON FOR EXAM: Female, 67 years old. The tip pain TECHNIQUE: Radiological exam, hip, unilateral, with pelvis when performed; 2 or 3 views. COMPARISON: May 15, 2017 FINDINGS: There is a non-specific bowel gas pattern. Normal visualized soft tissue structures. Normal bilateral iliac wings, sacroiliac joints and visualized sacrum. Normal bilateral superior and inferior pubic rami. Normal pubic symphysis. Normal bilateral ischial tuberosities. There is mild bilateral acetabular spurring. There is enthesopathy at the left greater than right iliac crest. There is a spinal fusion at L4-L5 with laminectomy. RAD/HIP, UNI W/ Pelvis 2-3 Views IMPRESSION: Minimal degenerative change. No visualized fracture. Status post spinal fusion laminectomy L4-L5. Electronically Signed: Jeanna Thorpe MD at 17:08 EDT Tel , Service support ,
== END ==
PROVIDERS: Family Provider Family Medicine; PCP Family Medicine; Visit Provider Nurse Practitioner Family
DX: M25.552 Pain in left hip (principal)
CPT/HCPCS: 73502

== ENCOUNTER → 2018-02-04 11:58 | Outpatient (CLI) | payer OTHER, SELFPAY ==
[2018-02-02 09:33] VITALS: BMI 43.0
[2018-02-04 14:23] LABS: Hemoglobin A1c 8.6 % (4.2-6.3); Vitamin D,25 Hydroxy 27.2 ng/mL (29.95-100.01)
[2018-02-04 14:24] LABS: Microalbumin:Creatinine Ratio 179.4 mg/g CRE (<30 mg/g CRE)
[2018-02-04 14:29] LABS: AST(SGOT) 11 U/L (15-37); Alanine Aminotransfer ALT/SGPT 28 U/L (13-56); Albumin, Serum 3.6 g/dL (3.2-5.0); Alkaline Phosphatase 56 U/L (45-117); Anion Gap 11 (5-15); BUN 17 mg/dL (7-18); BUN/Creat Ratio 16.3 RATIO (10-20); Calcium,Total 9.2 mg/dL (8.5-10.1); Chloride 101 mmol/L (98-107); Creatinine, Serum 1.04 mg/dL (0.55-1.02); EST Glomerular Filtration Rate 56 mL/min (>60); Est Glom Filt Rate - Afr Amer 68 mL/min (>60); Globulin 3.7 g/dL (2.2-4.2); Glucose 110 mg/dL (74-106); Potassium 3.7 mmol/L (3.5-5.1); Protein, Total 7.3 g/dL (6.4-8.2); Sodium Level 140 mmol/L (136-145)
== END ==
PROVIDERS: Nurse Practitioner; Family Provider Family Medicine; PCP Family Medicine; Referring Provider Nurse Practitioner Family; Visit Provider Nurse Practitioner Family
DX: I10 Essential (primary) hypertension (principal); R06.09 Other forms of dyspnea; E11.65 Type 2 diabetes mellitus with hyperglycemia
CPT/HCPCS: 36415; 80053; 82043; 82306; 82570; 83036

== ENCOUNTER → 2018-02-24 13:09 | Outpatient (CLI) | payer OTHER, SELFPAY ==
--- NOTE | 2018-02-25 11:15 | PFT_ITS ---
INTRODUCTION: The patient is a 67-year-old female that presents for pulmonary function testing secondary to a diagnosis of COPD. Respiratory therapy reports good patient effort. Bronchodilators were used during testing. INTERPRETATION: Forced expiration spirometry demonstrates the presence of a severe large airways obstructive ventilatory defect. There was no significant response to aerosolized bronchodilators. Spirograms are of fair quality and do not plateau indicating slow emptying of the lungs. Body plethysmography was performed and reveals an elevated TLC and RV, indicative of underlying hyperinflation and air- trapping. Diffusing capacity by single breath CO is moderately reduced at 60% of predicted. IMPRESSION: These pulmonary function studies demonstrate the presence of an irreversible severe large airways obstructive ventilatory defect with associated hyperinflation, air trapping and reduction in diffusing capacity.
== END ==
PROVIDERS: Family Provider Family Medicine; PCP Family Medicine; Referring Provider Nurse Practitioner Acute Care; Visit Provider Nurse Practitioner Acute Care
DX: J44.9 Chronic obstructive pulmonary disease, unspecified (principal)
CPT/HCPCS: 94060; 94726; 94729

== ENCOUNTER → 2018-02-26 12:31 | Outpatient (CLI) | payer OTHER, SELFPAY ==
[2018-02-26 12:30] VITALS: PULSE 73; PULSE 81; PULSE 83; PULSE 86; PULSE 89; PULSE 91; O2SAT 91; O2SAT 92; O2SAT 93; O2SAT 95; O2SAT 96; O2SAT 98
--- NOTE | 2018-02-27 10:55 | PCM.PSN.6M ---
PSN 6 Minute Walk Test - 6 Minute Walk Test 6 Minute Walk Test: 6 Minute Walk Test PSN:6-Minute Walk Test Start: 02/26/18 12:56 Freq: Status: Active Protocol: [id number] Document 02/26/18 12:30 HG (Rec: 02/26/18 13:00 HG [id number]) 6 Minute Walk Test Date Performed 02/26/18 Time Performed 12:30 Height 5 ft 4 in Weight: 244 lb Weight in Pounds 244.[address]: Ira Matute Assistive device used: Cane Pre-test Oxygen Delivery Method Room Air Pulse Ox (%) 96 Pulse Rate (60-100 beats/min) 73 Dyspnea Geovani Scale (0-10) 1 Exertion Geovani Scale (6-20) 8 1st minute Oxygen Delivery Method Room Air Pulse Ox (%) 92 Pulse Rate (60-100 beats/min) 86 Number of Rests Taken 1 Reported Symptoms Increased Work of Breathing 2nd minute Oxygen Delivery Method Room Air Pulse Ox (%) 91 Pulse Rate (60-100 beats/min) 86 Number of Rests Taken 1 Reported Symptoms Increased Work of Breathing 3rd minute Oxygen Delivery Method Room Air Pulse Ox (%) 95 Pulse Rate (60-100 beats/min) 91 Number of Rests Taken 1 Reported Symptoms Increased Work of Breathing 4th minute Oxygen Delivery Method Room Air Pulse Ox (%) 93 Pulse Rate (60-100 beats/min) 91 Number of Rests Taken 1 Reported Symptoms Increased Work of Breathing 5th minute Oxygen Delivery Method Room Air Pulse Ox (%) 96 Pulse Rate (60-100 beats/min) 89 Number of Rests Taken 1 Reported Symptoms Increased Work of Breathing 6th minute Oxygen Delivery Method Room Air Pulse Ox (%) 98 Pulse Rate (60-100 beats/min) 83 Number of Rests Taken 1 Reported Symptoms Increased Work of Breathing Post-test Oxygen Delivery Method Room Air Pulse Ox (%) 98 Pulse Rate (60-100 beats/min) 81 Dyspnea Geovani Scale (0-10) 5 Exertion Geovani Scale (6-20) 16 Full Laps Walked 5 Partial Lap, Number of Tiles Walked 0 Total Distance Walked (ft) 295 - Interpretation Interpretation: The patient ambulated 295 feet over the course of 6 minutes beginning on room air with use of a cane. Pretesting oxygen saturation was noted to be 96% on room air. With ambulation, the kylie oxygen saturation was 91%. There was both evidence of impaired walk distance and significant exertional oxygen desaturation. - Recommendations Recommendations: There is no indication for the use of supplemental oxygen at this time. However, close interval follow-up is recommended, given the degree of oxygen desaturation noted during this study.
== END ==
PROVIDERS: Family Provider Family Medicine; PCP Family Medicine; Referring Provider Nurse Practitioner Acute Care; Visit Provider Nurse Practitioner Acute Care
DX: J44.9 Chronic obstructive pulmonary disease, unspecified (principal)
CPT/HCPCS: 94618

== ENCOUNTER → 2018-06-22 10:58 | Outpatient (CLI) | payer MEDICARE, SELFPAY ==
[2018-06-02 13:16] VITALS: BMI 42.9
== END ==
PROVIDERS: Family Provider Family Medicine; PCP Family Medicine; Referring Provider Nurse Practitioner Acute Care; Visit Provider Nurse Practitioner Acute Care
DX: R06.02 Shortness of breath (principal)
CPT/HCPCS: 93306

== ENCOUNTER → 2018-06-26 11:37 | Outpatient (CLI) | payer MEDICARE, SELFPAY ==
[2018-06-02 13:16] VITALS: BMI 42.9
[2018-06-26 16:04] LABS: AST(SGOT) 16 U/L (15-37); Alanine Aminotransfer ALT/SGPT 23 U/L (13-56); Albumin, Serum 3.6 g/dL (3.2-5.0); Alkaline Phosphatase 60 U/L (45-117); Anion Gap 7 (5-15); BUN 15 mg/dL (7-18); BUN/Creat Ratio 16.5 RATIO (10-20); Calcium,Total 9.3 mg/dL (8.5-10.1); Chloride 103 mmol/L (98-107); Creatinine, Serum 0.91 mg/dL (0.55-1.02); EST Glomerular Filtration Rate 66 mL/min (>60); Est Glom Filt Rate - Afr Amer 79 mL/min (>60); Globulin 3.7 g/dL (2.2-4.2); Glucose 200 mg/dL (74-106); Potassium 3.9 mmol/L (3.5-5.1); Protein, Total 7.3 g/dL (6.4-8.2); Sodium Level 140 mmol/L (136-145)
== END ==
PROVIDERS: Family Provider Family Medicine; PCP Family Medicine; Visit Provider Nurse Practitioner
DX: I10 Essential (primary) hypertension (principal)
CPT/HCPCS: 36415; 80053

== ENCOUNTER → 2018-08-06 15:35 | Outpatient (CLI) | payer MEDICARE, SELFPAY ==
[2018-08-03 14:17] VITALS: BMI 44.4
[2018-08-06 17:40] LABS: Anion Gap 7 (5-15); BUN 15 mg/dL (7-18); Calcium,Total 9.3 mg/dL (8.5-10.1); Chloride 104 mmol/L (98-107); EST Glomerular Filtration Rate 59 mL/min (>60); Est Glom Filt Rate - Afr Amer 71 mL/min (>60); Glucose 127 mg/dL (74-106); Potassium 4.3 mmol/L (3.5-5.1); Sodium Level 141 mmol/L (136-145)
== END ==
PROVIDERS: Family Provider Family Medicine; PCP Family Medicine; Referring Provider Internal Medicine Cardiovascular Disease; Visit Provider Internal Medicine Cardiovascular Disease
DX: I10 Essential (primary) hypertension (principal); R06.02 Shortness of breath; I27.20 Pulmonary hypertension, unspecified
CPT/HCPCS: 36415; 80048

== ENCOUNTER → 2018-11-04 11:35 | Outpatient (CLI) | payer MEDICARE, SELFPAY ==
[2018-10-05 11:02] VITALS: BMI 44.6
[2018-11-04 15:56] LABS: Ferritin 61 ng/mL (8-252); Iron 62 ug/dL (50-170)
[2018-11-04 15:59] LABS: Vitamin B12 303 pg/mL (211-911)
== END ==
PROVIDERS: Family Provider Family Medicine; PCP Family Medicine; Visit Provider Family Medicine
DX: N30.00 Acute cystitis without hematuria (principal); D64.9 Anemia, unspecified
CPT/HCPCS: 36415; 82607; 82728; 83540; 87086; 87088

== ENCOUNTER 2019-02-17 17:09 | Inpatient (IN) | payer MEDICARE, SELFPAY ==
[2019-02-01 12:51] VITALS: BMI 44.8
[2019-02-17 17:23] VITALS: BP 138/74; PULSE 64; RESP 18; TEMP 36.9; O2SAT 97; BMI 43.9; BMI 44.0
[2019-02-17 17:50] LABS: Bedside Glucose 122 mg/dL (70-110)
[2019-02-17] MEDS: oxyCODONE 5 MG Tablet PO (19:02)
[2019-02-17] MEDS: Docusate Sodium 100 MG Capsule PO (19:03)
[2019-02-17] MEDS: Propranolol LA 60 MG Capsule 120 MG PO (19:04)
[2019-02-17] MEDS: Isosorbide Mononitrate 30 MG Tablet PO (19:04)
[2019-02-17] MEDS: Furosemide 40 MG Tablet PO (19:05)
--- NOTE | 2019-02-17 19:31 | PCM.HP.STD ---
Problem List (1) Debility Status: Acute (2) Spinal stenosis, lumbar region with neurogenic claudication Status: Acute (3) Lumbar spondylosis Status: Acute (4) Diabetes mellitus Status: Chronic (5) Hypertension Status: Chronic (6) Anemia Status: Chronic (7) Body mass index (BMI) 40.0-44.9, adult Status: Chronic (8) Depression Status: Chronic (9) Coronary artery disease Status: Chronic (10) Muscle spasm Status: Acute (11) Hypokalemia Status: Chronic (12) Edema Status: Chronic Qualifiers: (13) Asthma Status: Chronic Qualifiers: (14) Restless leg syndrome Status: Chronic (15) SHANNON (obstructive sleep apnea) Status: Chronic Comment: CPAP 16 cm of water History of Present Illness Date of Admission: 02/17/19 Chief Complaint: Here for rehabilitation, strengthening, prior to discharge home with . The patient is a 68 year old Female with below past medical history had lumbar spine surgery [address] Pitts. Recently, she developed worsening back pain, radicular symptoms, weakness, difficulty ambulating. She was admitted to [facility] for surgery. 02/11/2019 Dr. Garrett performed the following. L4-5 Removal of Hardware. L3-4 Lateral lumbar interbody fusion. L3-4 Posterior lumbar fusion & decompression. L3-5 Instrumentation. L4-5 revision decompression. Bone Marrow Aspiration. Postoperative course uncomplicated. 02/17/2019 Admit to TCU with debility, here for rehabilitation, strengthening, prior to discharge home with . Past Medical History Past Medical History (Chronic Problems): Chronic Problems (Last Updated 02/01/19 @ 12:49 by Romaine Voss NP-C) Diabetes mellitus (Chronic) Hypertension (Chronic) Anemia (Chronic) Body mass index (BMI) 40.0-44.9, adult (Chronic) Depression (Chronic) Coronary artery disease (Chronic) Atherosclerosis of [place] coronary artery of [place] heart without angina pectoris (Chronic) Essential hypertension (Chronic) Hyperlipidemia due to type 2 diabetes mellitus (Chronic) Stage 3 severe COPD by GOLD classification (Chronic) FEV1 42% of predicted Seasonal allergies (Chronic) Chronic bronchitis (Chronic) Vitamin D deficiency (Chronic) Hyperlipidemia (Chronic) Diabetic peripheral neuropathy (Chronic) Hypokalemia (Chronic) IBS (irritable bowel syndrome) (Chronic) Insomnia (Chronic) Spinal stenosis of lumbar region (Chronic) DDD (degenerative disc disease), cervical (Chronic) Disequilibrium (Chronic) Dyspnea on exertion (Chronic) GERD (gastroesophageal reflux disease) (Chronic) Morbid obesity (Chronic) DM (diabetes mellitus), type 2, uncontrolled (Chronic) . Is now feeling better and BG more controlled. Understands checking consistently and managing BG on daily basis. Pain management also creates higher BG; however this is needed for patient quality of life. Atrial septal defect (Chronic) Pulmonary emboli (Chronic) Edema (Chronic) SOB (shortness of breath) (Chronic) Asthma (Chronic) Restless leg syndrome (Chronic) Anxiety and depression (Chronic) SHANNON (obstructive sleep apnea) (Chronic) CPAP 16 cm of water Obesity (BMI 35.0-39.9 without comorbidity) (Chronic) Has medical issues as well as pain which prevent patient from activity and exercise. Discussed as usual her caloric intake as well as water aerobics and armchair exercises. Medical History: Medical History (Last Updated 02/01/19 @ 12:49 by Romaine Voss, CHIN STRAP CUTTER-C) Atherosclerosis of [place] coronary artery of [place] heart without angina pectoris (Chronic) I25.10 Essential hypertension (Chronic) I10 JILL (acute kidney injury) (Acute) N17.9 Recurrent falls (Acute) R29.6 Seasonal allergies (Chronic) J30.2 Chronic bronchitis (Chronic) J42 Vitamin D deficiency (Chronic) E55.9 Hyperlipidemia (Chronic) E78.5 Diabetic peripheral neuropathy (Chronic) E11.42 Hypokalemia (Chronic) E87.6 IBS (irritable bowel syndrome) (Chronic) K58.9 Insomnia (Chronic) G47.00 Spinal stenosis of lumbar region (Chronic) M48.061 DDD (degenerative disc disease), cervical (Chronic) M50.30 Disequilibrium (Chronic) R42 Dyspnea on exertion (Chronic) R06.09 GERD (gastroesophageal reflux disease) (Chronic) K21.9 Morbid obesity (Chronic) E66.01 DM (diabetes mellitus), type 2, uncontrolled (Chronic) E11.65 . Is now feeling better and BG more controlled. Understands checking consistently and managing BG on daily basis. Pain management also creates higher BG; however this is needed for patient quality of life. Atrial septal defect (Chronic) Q21.1 Pulmonary emboli (Chronic) I26.99 Edema (Chronic) R60.9 Abnormal echocardiogram (Acute) R93.1 SOB (shortness of breath) (Chronic) R06.02 Asthma (Chronic) J45.909 Restless leg syndrome (Chronic) Anxiety and depression (Chronic) SAHNNON (obstructive sleep apnea) (Chronic) G47.33 CPAP 16 cm of water Obesity (BMI 35.0-39.9 without comorbidity) (Chronic) E66.9 Has medical issues as well as pain which prevent patient from activity and exercise. Discussed as usual her caloric intake as well as water aerobics and armchair exercises. Carpal tunnel syndrome (Resolved) G56.00 Cystitis, acute (Resolved) N30.00 Dehydration (Resolved) E86.0 Dehydration with hyponatremia (Resolved) E87.1 Gastroenteritis (Resolved) K52.9 History of echocardiogram Onset Date: ~01/2017 Z92.89 EF 65%; +agitated saline contrast for interatrial shunt History of nuclear stress test Onset Date: ~10/2016 Z92.89 Negative Sepsis (Resolved) A41.9 DM (diabetes mellitus), type 2, uncontrolled (Inactive) E11.65 Dx : 2005 Last exacerbation : DKA : never Hypoglycemic episode : never ER visit : never Hypertension (Inactive) I10 Allergies rivaroxaban [From Xarelto] Allergy (Intermediate, Verified 02/01/19 13:17) Itching latex Allergy (Verified 02/01/19 13:17) Itching pravastatin Allergy (Verified 02/17/19 18:03) Unknown codeine Adverse Reaction (Severe, Verified 02/01/19 13:17) Itching zolpidem [From Ambien] Adverse Reaction (Severe, Verified 02/01/19 13:17) Sleep walking/talking environmental Allergy (Uncoded 01/18/19 09:01) Other Home Medications: Ambulatory Orders Medication Instructions Recorded Ropinirole HCl [Requip] 4 mg PO BID 02/23/13 losartan 100 mg tablet 100 mg PO QHS 02/28/17 propranolol ER 120 mg capsule,24 120 mg PO QDAY 02/28/17 hr,extended release Gabapentin [Neurontin] 800 mg PO 4X/DAY 03/27/17 citalopram 20 mg tablet 40 mg PO DAILY tab 08/03/18 Albuterol Sulfate 2.5 mg IH Q4H PRN PRN 02/17/19 Docusate Sodium 100 mg PO Q12H 02/17/19 Furosemide 40 mg PO DAILY 02/17/19 Insulin NPH Hum/Reg Insulin Hm See Rx Instructions SUBCUT BID 02/17/19 [Humulin 70/30 U-100 Insulin] Isosorbide Mononitrate [Isosorbide 30 mg PO DAILY 02/17/19 Mononitrate ER] Metolazone [Zaroxolyn] 2.5 mg PO MOTH 02/17/19 Oxycodone [Oxyir] 5 mg PO Q4H PRN PRN 02/17/19 Potassium Chloride [K-Dur] 20 meq PO QHS 02/17/19 Tizanidine HCl [Zanaflex] 4 mg PO Q6H PRN PRN 02/17/19 Umeclidinium Brm/Vilanterol Tr 1 inh INHALATION QDAY 02/17/19 [Anoro Ellipta] Surgical History: Surgical History (Last Reviewed 01/18/19 @ 09:20 by ANATOLY Manrique) Bilateral carpal tunnel syndrome G56.03 History of appendectomy Z98.890, Z90.49 History of back surgery Z98.890 History of carpal tunnel surgery of left wrist Z98.890 History of cataract surgery Z98.49 History of cholecystectomy Onset Date: ~09/2011 Z98.890, Z90.49 History of laminectomy Onset Date: ~07/2015 Z98.890 L4-L5 Decompression L3-L4 History of laparoscopic cholecystectomy Z90.49 History of umbilical hernia repair Onset Date: ~08/2012 Z98.890, Z87.19 sciatic nerve cauterization Surgical History: appendectomy, cataract, cholecystectomy, herniorrhaphy - unbilical, - - BL carpal tunnel release Psychiatric History: Anxiety, Depression PLUCK SEPARATOR 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 PLUCK SEPARATOR 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 Lives: Spouse/ Significant Other Smoking Status: Never smoker Tobacco Use: Non-smoker Alcohol: Rare Drugs: None - *Family History Maternal Family History: Family History (Last Reviewed 01/18/19 @ 09:20 by ANATOLY Manrique) Father Heart disease Hypertension CAD (coronary artery disease) Arthritis Mother Hypertension Asthma Diabetes Heart disease COPD (chronic obstructive pulmonary disease) History Items: Diabetes, Heart Disease Paternal Family History: Family History (Last Reviewed 01/18/19 @ 09:20 by ANATOLY Manrique) Father Heart disease Hypertension CAD (coronary artery disease) Arthritis Mother Hypertension Asthma Diabetes Heart disease COPD (chronic obstructive pulmonary disease) History Items: Diabetes, Heart Disease Review of Systems Constitutional: Denies: Chills, Fever, Weight Change HEENT: Denies: Head Aches, Sinus Congestion, Sinus Drainage Cardiovascular: Denies: Chest Pain, Palpitations Respiratory: Denies: Cough, Shortness of breath at rest, Sputum production Gastrointestinal: Denies: Abdominal Pain, Nausea, Vomiting Genitourinary: Denies: Dysuria Musculoskeletal: Denies: Joint Pain, Joint Tenderness Skin: Denies: Rash, Wounds Neurological: Denies: Numbness, Tingling, Focal weakness Psychiatric: Denies: Anxiety, Depression, Homicidal Ideations, Suicidal Ideations Hematologic/ Lymphatic: Denies: Easy Bruising, Easy Bleeding VTE Information - Inpt Only VTE Present on Admission: No VTE Mechan Device Prophylaxis: Knee High LIZZETTE Hose VTE Pharm Prophylaxis ordered?: Yes Patient Problems: Active and Suspected Problems (Last Updated 02/01/19 @ 12:49 by Romaine Voss CHIN STRAP CUTTER-C) Debility (Acute) Spinal stenosis, lumbar region with neurogenic claudication (Acute) Lumbar spondylosis (Acute) Muscle spasm (Acute) - Physical Exam Vitals/I&O's: Vital Signs Temp Pulse Resp BP Pulse Ox 98.4 F 64 18 138/74 H 97 02/17/19 17:23 02/17/19 17:23 02/17/19 17:23 02/17/19 17:23 02/17/19 17:23 Oxygen Flow Rate (L/min) 2 Oxygen Delivery Method Nasal Cannula Weight: 116.261 kg Body Mass Index (BMI) 43.9 Finger Stick Blood Glucose 225 General: Alert, Oriented x3, Cooperative HEENT: Atraumatic, PERRLA, EOMI, Normocephalic Neck: Supple, No JVD, Negative Carotid Bruits Lungs: Clear to auscultation, Normal air movement Cardiovascular: Regular rate, No murmurs Abdomen: Bowel Sounds Present, Soft, Non Tender Extremities: No edema, Capillary Refill Less than 3 Seconds Skin: No rashes, No breakdown, Incision - Lumbar spinal clean, dry, intact. Musculoskeletal: No Tenderness to Palpation of Joints or Extremities Neurological: Cranial nerves II-XII grossly intact Psych/Mental Status: Normal Affect, Appropriate Laboratory Results 02/17/19 17:46: POC Glucose 122 H Current Medications Albuterol Sulfate (Ventolin Aerosols) 2.5 mg INHALATION Q4H PRN PRN PRN Reason: SOB &/OR WHEEZING Albuterol/Ipratropium (Duoneb) 3 ml INHALATION Q6HWA.RT [facility] Citalopram Hydrobromide (Celexa) 40 mg PO DAILY [facility] Docusate Sodium (Colace) 100 mg PO Q12 [facility] Last Admin: 02/17/19 19:03 Dose: 100 mg Documented by: Furosemide (Lasix) 40 mg PO DAILY [facility] Last Admin: 02/17/19 19:05 Dose: 40 mg Documented by: Gabapentin (Neurontin) 800 mg PO 4X/DAY [facility] Insulin Lispro Protam/Lispro Human (Humalog Mix 75-25 Kwikpen (Bkc)) 50 unit SC BREAKFAST [facility] Insulin Lispro Protam/Lispro Human (Humalog Mix 75-25 Kwikpen (Bkc)) 75 unit SC DINNER [facility] Isosorbide Mononitrate (Imdur) 30 mg PO DAILY [facility] Last Admin: 02/17/19 19:04 Dose: 30 mg Documented by: Losartan Potassium (Cozaar) 100 mg PO QHS [facility] Metolazone (Zaroxolyn) 2.5 mg PO MOTH [facility] Oxycodone HCl (Oxyir) 5 mg PO Q4H PRN PRN PRN Reason: Pain Score 6-10/10 Last Admin: 02/17/19 19:02 Dose: 5 mg Documented by: Potassium Chloride (K-Dur) 20 meq PO QHS [facility] Pramipexole Dihydrochloride (Mirapex) 0.125 mg PO TID [facility] Pramipexole Dihydrochloride (Mirapex) 0.25 mg PO TID [facility] Propranolol HCl (Inderal La) 120 mg PO DAILY [facility] Last Admin: 02/17/19 19:04 Dose: 120 mg Documented by: Tizanidine HCl (Zanaflex) 4 mg PO Q6H PRN PRN PRN Reason: SPASMS Tuberculin PPD (Tubersol, Aplisol, Ppd) 5 tu ID [id number] ONE Stop: 02/18/19 10:01 Tuberculin PPD (Tubersol, Aplisol, Ppd) 5 tu ID [id number] ONE Stop: 02/25/19 10:01 Assessment/Plan All Active Problems (Last Updated 02/01/19 @ 12:49 by Romaine Voss NP-C) Debility (Acute) Spinal stenosis, lumbar region with neurogenic claudication (Acute) Lumbar spondylosis (Acute) Muscle spasm (Acute) JILL (acute kidney injury) (Acute) Recurrent falls (Acute) Abnormal echocardiogram (Acute) Carpal tunnel syndrome (Resolved) Cystitis, acute (Resolved) Dehydration (Resolved) Dehydration with hyponatremia (Resolved) Gastroenteritis (Resolved) History of abdominal pain (Resolved) Sepsis (Resolved) 68 year old female with below past medical history hospitalized for lumbar spine surgery 02/11/[address] Garrett, admitted to TCU with debility, here for rehabilitation, strengthening, prior to discharge home with . Debility - PT/OT. Pain - Tylenol 1000MG Q6H PRN pain (1-5), Oxycodone 5MG Q4H PRN pain (6-10) Bowel - Miralax 17GM daily, Senna/colace 2 tablets BID, Dulcolax 10MG daily PRN. Adult immunization - Administer Prevnar 13, Pneumovax 23, Fluzone as necessary. DVT prophylaxis - Lovenox 40MG SC daily. Asthma - Duoneb 3ML Q6HWA, Ventolin 2.5MG Q4H PRN. Depression - Citalopram 40MG daily, stable chronic medical terminologist use, GDR clinically not indicated. Edema - Lasix 40MG daily, Metolazone 2.5MG Friday, . Neuropathic pain - Gabapentin 800MG 4x/day. Diabetes Mellitus II - Humalog 75/25 50 units AM, 75 units PM, monitor blood sugars. Coronary Artery Disease - Propranolol 120MG daily, Losartan 100MG daily, Imdur 30MG daily. Hypokalemia - K-Dur 20MEQ QHS. Restless Leg syndrome - Mirapex 0.375MG TID. Muscle spasm - Tizanidine 4MG Q6H PRN.
[2019-02-17] MEDS: Pramipexole Di-HCl 0.125 MG Tablet PO (20:52)
[2019-02-17] MEDS: Pramipexole Di-HCl 0.25 MG Tablet PO (20:53)
[2019-02-17] MEDS: Gabapentin 800 MG Tablet PO (20:53)
[2019-02-17] MEDS: Losartan Potassium 100 MG Tablet PO (20:53)
[2019-02-17 21:05] LABS: Bedside Glucose 139 mg/dL (70-110)
--- NOTE | 2019-02-17 22:13 | NURSING ---
Code status discussed with patient, patient wishes to be a DNRCC. Purple bracelet applied to wrist.
[2019-02-18] MEDS: MELATONIN 10 MG TABLET PO ×2 (00:01→20:04)
[2019-02-18 05:04] LABS: Absolute Lymphocyte Count 1.08 X10^3/uL (0.83-4.51); Absolute Neutrophil Count 4.4 X10^3/uL (2.0-7.7); Basophil# 0.04 X10^3/uL; Basophil% 0.6 % (0-1); Eosinophil# 0.33 X10^3/uL; Eosinophils% 4.9 % (0-5); Hematocrit 29.9 % (37-47); Hemoglobin 9.7 g/dL (12.0-15.0); Lymphocyte # 1.08 X10^3/ul (4.0); Mean Corp Hgb Conc 32.4 g/dL (32-36); Mean Corpuscular Hgb 29.4 pg (27.0-32.0); Mean Corpuscular Volume 90.6 fL (81-99); Mean Platelet Vol. 9.4 fl (6.2-12.0); Monocyte% 11.9 % (0-10); NRBC Flagged by Analyzer 0 % (0-5); Neutrophil % 65.3 % (47-70); Platelet Count 259 K/mm3 (150-450); RBC Distribution Width CV 13.6 % (11.6-14.6); RBC Distribution Width SD 44.6 fl (35.1-43.9); White Blood Count 6.7 K/mm3 (4.4-11.0)
[2019-02-18 05:15] LABS: Anion Gap 6 (5-15); BUN 25 mg/dL (7-18); BUN/Creat Ratio 27.1 RATIO (10-20); Calcium,Total 8.8 mg/dL (8.5-10.1); Chloride 99 mmol/L (98-107); Creatinine, Serum 0.92 mg/dL (0.55-1.02); EST Glomerular Filtration Rate 65 mL/min (>60); Est Glom Filt Rate - Afr Amer 78 mL/min (>60); Estimated Creatinine Clearance 51.24 ml/min; Glucose 90 mg/dL (74-106); Potassium 4.1 mmol/L (3.5-5.1); Sodium Level 137 mmol/L (136-145)
[2019-02-18] MEDS: oxyCODONE 5 MG Tablet PO ×5 (05:16→20:59)
[2019-02-18] MEDS: Pramipexole Di-HCl 0.125 MG Tablet PO ×3 (05:17→20:05)
[2019-02-18] MEDS: Pramipexole Di-HCl 0.25 MG Tablet PO ×3 (05:17→20:05)
[2019-02-18] MEDS: Propranolol LA 60 MG Capsule 120 MG PO (05:17)
[2019-02-18] MEDS: Citalopram 20 MG Tablet 40 MG PO (05:17)
[2019-02-18] MEDS: Gabapentin 800 MG Tablet PO ×4 (05:17→20:06)
[2019-02-18] MEDS: Isosorbide Mononitrate 30 MG Tablet PO (05:19)
[2019-02-18] MEDS: Furosemide 40 MG Tablet PO (05:19)
[2019-02-18] MEDS: Metolazone 2.5 MG Tablet PO (05:20)
[2019-02-18] MEDS: Senna/Docusate Sodium 1 Tablet 2 TABLET PO ×2 (05:21→17:57)
[2019-02-18] MEDS: Enoxaparin 40 MG/0.4 ML Syringe SC (05:22)
[2019-02-18] MEDS: Polyethylene Glycol 3350 17 GM PACKET PO (05:22)
[2019-02-18 06:21] LABS: Bedside Glucose 107 mg/dL (70-110)
[2019-02-18 06:43] VITALS: PULSE 59; RESP 16; O2SAT 96
[2019-02-18] MEDS: Ipratropium/Albuterol Sulfate 3 ML AMPUL.NEB INHALATION ×3 (06:43→18:45)
[2019-02-18] MEDS: Acetaminophen 500 MG Tablet 1000 MG PO ×3 (08:32→21:00)
[2019-02-18] MEDS: Tuberculin,Purif.prot.deriv. 50 TU/ML Vial 5 ML ID (08:58)
[2019-02-18] MEDS: Insulin Human 75/25 Kwickpen 50 UNIT SC (08:58)
[2019-02-18 11:15] LABS: Bedside Glucose 117 mg/dL (70-110)
[2019-02-18 12:45] VITALS: PULSE 58; RESP 16
[2019-02-18 15:12] VITALS: BP 132/88; PULSE 56; RESP 16; TEMP 36.9; O2SAT 93
[2019-02-18 16:50] LABS: Bedside Glucose 115 mg/dL (70-110)
[2019-02-18] MEDS: Insulin Human 75/25 Kwickpen 75 UNIT SC (17:57)
[2019-02-18 18:45] VITALS: PULSE 53; RESP 16
[2019-02-18] MEDS: Losartan Potassium 100 MG Tablet PO (20:04)
[2019-02-18 20:11] VITALS: RESP 20; O2SAT 93
[2019-02-18 21:05] LABS: Bedside Glucose 81 mg/dL (70-110)
[2019-02-19 01:41] LABS: Bedside Glucose 61 mg/dL (70-110)
[2019-02-19 02:21] LABS: Bedside Glucose 121 mg/dL (70-110)
--- NOTE | 2019-02-19 02:36 | NURSING ---
0130- accucheck done pt sweaty/hot. result 61. Pt had snack and assisted to restroom to void. Recheck accucheck at [phone]. will continue to monitor.
[2019-02-19] MEDS: Senna/Docusate Sodium 1 Tablet 2 TABLET PO ×2 (05:42→18:14)
[2019-02-19] MEDS: Polyethylene Glycol 3350 17 GM PACKET PO (05:42)
[2019-02-19] MEDS: Enoxaparin 40 MG/0.4 ML Syringe SC (05:42)
[2019-02-19] MEDS: Propranolol LA 60 MG Capsule 120 MG PO (05:42)
[2019-02-19] MEDS: Pramipexole Di-HCl 0.25 MG Tablet PO ×3 (05:43→22:49)
[2019-02-19] MEDS: Pramipexole Di-HCl 0.125 MG Tablet PO ×3 (05:43→22:49)
[2019-02-19] MEDS: Citalopram 20 MG Tablet 40 MG PO (05:43)
[2019-02-19] MEDS: Furosemide 40 MG Tablet PO (05:43)
[2019-02-19] MEDS: Isosorbide Mononitrate 30 MG Tablet PO (05:43)
[2019-02-19] MEDS: Gabapentin 800 MG Tablet PO ×4 (05:43→22:48)
[2019-02-19] MEDS: oxyCODONE 5 MG Tablet PO ×3 (05:49→18:53)
[2019-02-19 06:45] LABS: Bedside Glucose 159 mg/dL (70-110)
[2019-02-19] MEDS: Acetaminophen 500 MG Tablet 1000 MG PO (06:50)
[2019-02-19 07:45] VITALS: PULSE 68; RESP 18
[2019-02-19] MEDS: Insulin Human 75/25 Kwickpen 50 UNIT SC (09:25)
[2019-02-19 09:30] LABS: Bedside Glucose 190 mg/dL (70-110)
[2019-02-19 10:46] LABS: Bedside Glucose 171 mg/dL (70-110)
[2019-02-19 15:28] VITALS: BP 173/62; PULSE 68; RESP 20; TEMP 37.3; O2SAT 94
[2019-02-19 17:11] LABS: Bedside Glucose 156 mg/dL (70-110)
[2019-02-19] MEDS: Insulin Human 75/25 Kwickpen 65 UNIT SC (18:15)
[2019-02-19 18:54] VITALS: PULSE 72; RESP 18
[2019-02-19] MEDS: Ipratropium/Albuterol Sulfate 3 ML AMPUL.NEB INHALATION (18:54)
[2019-02-19 20:06] VITALS: PULSE 71; O2SAT 93
[2019-02-19 20:45] LABS: Bedside Glucose 150 mg/dL (70-110)
[2019-02-19] MEDS: Losartan Potassium 100 MG Tablet PO (22:49)
[2019-02-19] MEDS: MELATONIN 10 MG TABLET PO (22:49)
--- NOTE | 2019-02-19 22:51 | PCA ---
Patient refused skin and jennyfer care tonight. Patient stated I had a shower in the morning I don't need to get washed up again.
[2019-02-19] MEDS: Nystatin Powder 15gm Bottle 1 APPLIC TOPICAL (22:53)
[2019-02-20] MEDS: oxyCODONE 5 MG Tablet PO ×2 (02:58→19:26)
[2019-02-20] MEDS: Furosemide 40 MG Tablet PO (05:52)
[2019-02-20] MEDS: Pramipexole Di-HCl 0.25 MG Tablet PO ×3 (05:52→20:54)
[2019-02-20] MEDS: Citalopram 20 MG Tablet 40 MG PO (05:52)
[2019-02-20] MEDS: Senna/Docusate Sodium 1 Tablet 2 TABLET PO (05:52)
[2019-02-20] MEDS: Gabapentin 800 MG Tablet PO ×4 (05:52→20:55)
[2019-02-20] MEDS: Propranolol LA 60 MG Capsule 120 MG PO (05:52)
[2019-02-20] MEDS: Polyethylene Glycol 3350 17 GM PACKET PO (05:52)
[2019-02-20] MEDS: Pramipexole Di-HCl 0.125 MG Tablet PO ×3 (05:52→20:55)
[2019-02-20] MEDS: Isosorbide Mononitrate 30 MG Tablet PO (05:52)
[2019-02-20] MEDS: Nystatin Powder 15gm Bottle 1 APPLIC TOPICAL ×2 (05:53→20:57)
[2019-02-20 07:25] LABS: Bedside Glucose 140 mg/dL (70-110)
[2019-02-20] MEDS: tiZANidine HCl 2 MG Tablet 4 MG PO ×2 (07:30→15:14)
[2019-02-20 08:02] VITALS: O2SAT 98
[2019-02-20] MEDS: Insulin Human 75/25 Kwickpen 50 UNIT SC (08:05)
[2019-02-20 08:15] VITALS: O2SAT 95
[2019-02-20 11:15] LABS: Bedside Glucose 143 mg/dL (70-110)
[2019-02-20 13:24] VITALS: PULSE 65; RESP 16; O2SAT 99
[2019-02-20] MEDS: Ipratropium/Albuterol Sulfate 3 ML AMPUL.NEB INHALATION (13:24)
[2019-02-20 15:51] VITALS: BP 126/60; PULSE 64; RESP 24; TEMP 36.8; O2SAT 99
[2019-02-20 17:05] LABS: Bedside Glucose 186 mg/dL (70-110)
[2019-02-20] MEDS: Insulin Human 75/25 Kwickpen 65 UNIT SC (18:11)
[2019-02-20 19:35] VITALS: PULSE 64; O2SAT 95
[2019-02-20 20:51] LABS: Bedside Glucose 153 mg/dL (70-110)
[2019-02-20] MEDS: Losartan Potassium 100 MG Tablet PO (20:55)
[2019-02-20] MEDS: MELATONIN 10 MG TABLET PO (20:57)
[2019-02-21] MEDS: oxyCODONE 5 MG Tablet PO ×5 (00:02→19:07)
[2019-02-21] MEDS: Gabapentin 800 MG Tablet PO ×4 (04:53→20:58)
[2019-02-21] MEDS: Pramipexole Di-HCl 0.25 MG Tablet PO ×3 (04:53→20:57)
[2019-02-21] MEDS: Citalopram 20 MG Tablet 40 MG PO (04:53)
[2019-02-21] MEDS: Pramipexole Di-HCl 0.125 MG Tablet PO ×3 (04:53→20:58)
[2019-02-21] MEDS: Furosemide 40 MG Tablet PO (04:53)
[2019-02-21] MEDS: Nystatin Powder 15gm Bottle 1 APPLIC TOPICAL ×2 (04:54→21:00)
[2019-02-21] MEDS: Senna/Docusate Sodium 1 Tablet 2 TABLET PO ×2 (04:54→17:04)
[2019-02-21] MEDS: Isosorbide Mononitrate 30 MG Tablet PO (04:54)
[2019-02-21] MEDS: Propranolol LA 60 MG Capsule 120 MG PO (04:54)
[2019-02-21] MEDS: Polyethylene Glycol 3350 17 GM PACKET PO (04:54)
[2019-02-21 06:31] LABS: Bedside Glucose 142 mg/dL (70-110)
[2019-02-21 07:40] VITALS: PULSE 70; RESP 18; O2SAT 92
[2019-02-21] MEDS: Ipratropium/Albuterol Sulfate 3 ML AMPUL.NEB INHALATION ×3 (07:40→19:12)
[2019-02-21] MEDS: Insulin Human 75/25 Kwickpen 50 UNIT SC (07:51)
[2019-02-21 09:35] VITALS: PULSE 66; RESP 18
[2019-02-21 11:15] LABS: Bedside Glucose 85 mg/dL (70-110)
--- NOTE | 2019-02-21 11:45 | NURSING ---
PT B.S 85. OJ GIVEN. REPORTED TO CANDACE ROWAN
[2019-02-21 12:30] VITALS: PULSE 70; RESP 16; O2SAT 93
--- NOTE | 2019-02-21 12:30 | NURSING ---
pt request pain medication. This RN notified pt that Oxyir IR was not due for another hour. Offered tylenol and polar care. pt refused stating I'll wait the hour. updated primary nurse. Will continue to monitor.
[2019-02-21 15:37] VITALS: BP 157/79; PULSE 61; RESP 18; TEMP 37.5; O2SAT 95
[2019-02-21 16:46] LABS: Bedside Glucose 105 mg/dL (70-110)
--- NOTE | 2019-02-21 18:03 | NURSING ---
PT BLOOD SUGAR 105, OK TO HOLD PER CANDACE ROWAN. PT WAS TO RECEIVE 65 UNITS OF HUMALOG MIX 75-25 AT SUPPER. PT STATED TO THIS NURSE THAT SHE WOULDN'T GIVE HERSELF ANY INSULIN AT THAT LOW WHEN SHE WOULD BE AT HOME.
[2019-02-21 19:12] VITALS: PULSE 75; RESP 18
[2019-02-21] MEDS: Acetaminophen 500 MG Tablet 1000 MG PO (20:34)
[2019-02-21] MEDS: MELATONIN 10 MG TABLET PO (20:57)
[2019-02-21] MEDS: Losartan Potassium 100 MG Tablet PO (20:58)
[2019-02-21 21:06] LABS: Bedside Glucose 165 mg/dL (70-110)
[2019-02-22] VITALS (12 sets, daily range): BP systolic 120; BP diastolic 63; PULSE 60–63; RESP 18–22; TEMP 37.3; O2SAT 90–97
[2019-02-22] MEDS: oxyCODONE 5 MG Tablet PO ×5 (01:40→22:01)
[2019-02-22] MEDS: Gabapentin 800 MG Tablet PO ×4 (04:37→22:06)
[2019-02-22] MEDS: Polyethylene Glycol 3350 17 GM PACKET PO (04:38)
[2019-02-22] MEDS: Propranolol LA 60 MG Capsule 120 MG PO (04:38)
[2019-02-22] MEDS: Metolazone 2.5 MG Tablet PO (04:38)
[2019-02-22] MEDS: Citalopram 20 MG Tablet 40 MG PO (04:38)
[2019-02-22] MEDS: Senna/Docusate Sodium 1 Tablet 2 TABLET PO ×2 (04:38→17:20)
[2019-02-22] MEDS: Furosemide 40 MG Tablet PO (04:38)
[2019-02-22] MEDS: Pramipexole Di-HCl 0.25 MG Tablet PO ×3 (04:38→22:07)
[2019-02-22] MEDS: Isosorbide Mononitrate 30 MG Tablet PO (04:38)
[2019-02-22] MEDS: Pramipexole Di-HCl 0.125 MG Tablet PO ×3 (04:38→22:06)
[2019-02-22] MEDS: Nystatin Powder 15gm Bottle 1 APPLIC TOPICAL ×2 (04:41→22:07)
--- NOTE | 2019-02-22 04:45 | NURSING ---
Pt call light on for the bathroom. This nurse into assist. This nurse asked pt if she needed assistance with wiping or pulling up attends. Pt stated I just drip dry. This nurse attempted to educate pt on proper hygiene and the risk for infection. Pt stated I know all about it, this is what I do at home sometimes. This nurse offered to assist pt with wiping but pt refused. Assisted back to bed with call light in reach. 2.5L via NC on.
[2019-02-22 06:26] LABS: Bedside Glucose 132 mg/dL (70-110)
[2019-02-22] MEDS: Ipratropium/Albuterol Sulfate 3 ML AMPUL.NEB INHALATION ×2 (07:22→18:42)
[2019-02-22] MEDS: Insulin Human 75/25 Kwickpen 42 UNIT SC (08:51)
[2019-02-22 09:01] LABS: Bedside Glucose 216 mg/dL (70-110)
[2019-02-22] MEDS: Acetaminophen 500 MG Tablet 1000 MG PO (09:07)
[2019-02-22 10:55] LABS: Bedside Glucose 165 mg/dL (70-110)
--- NOTE | 2019-02-22 14:30 | PHA.CONS_ITS ---
<JorgeFab [email or web address] - Last Filed: 02/22/19 14:30> Progress Note - Pharmacy Subjective: TCU Admission Objective: Allergies rivaroxaban [From Xarelto] Allergy (Intermediate, Verified 02/01/19 13:17) Itching latex Allergy (Verified 02/01/19 13:17) Itching pravastatin Allergy (Verified 02/17/19 18:03) Unknown codeine Adverse Reaction (Severe, Verified 02/01/19 13:17) Itching zolpidem [From Ambien] Adverse Reaction (Severe, Verified 02/01/19 13:17) Sleep walking/talking environmental Allergy (Uncoded 01/18/19 09:01) Other Current Medications Generic Name Dose Route Start Last Admin Trade Name Freq PRN Reason Stop Dose Admin Acetaminophen 1,000 mg 02/17/19 19:50 02/22/19 09:07 Tylenol PO 1,000 mg Q6H PRN Administration Pain Score 1-5/10 Albuterol Sulfate 2.5 mg 02/17/19 18:05 Ventolin Aerosols INHALATION Q4H PRN PRN SOB &/OR WHEEZING Albuterol/Ipratropium 3 ml 02/17/19 18:30 02/22/19 13:52 Duoneb INHALATION Not Given Q6HWA.RT MAGNOLIA Bisacodyl 10 mg 02/17/19 19:51 Dulcolax PO DAILY PRN Constipation Citalopram Hydrobromide 40 mg 02/18/19 06:00 02/22/19 04:38 Celexa PO 40 mg DAILY MAGNOLIA Administration Furosemide 40 mg 02/17/19 18:30 02/22/19 04:38 Lasix PO 40 mg DAILY MAGNOLIA Administration Gabapentin 800 mg 02/17/19 22:00 02/22/19 11:02 Neurontin PO 800 mg 4X/DAY MAGNOLIA Administration Insulin Lispro Protam/Lispro Human 42 unit 02/23/19 08:00 02/22/19 08:51 Humalog Mix 75-25 Kwikpen ([facility]) SC 42 u BREAKFAST MAGNOLIA Administration Insulin Lispro Protam/Lispro Human 55 unit 02/22/19 17:00 Humalog Mix 75-25 Kwikpen ([facility]) SC DINNER [facility] Isosorbide Mononitrate 30 mg 02/17/19 18:30 02/22/19 04:38 Imdur PO 30 mg DAILY MAGNOLIA Administration Losartan Potassium 100 mg 02/17/19 22:00 02/21/19 20:58 Cozaar PO 100 mg QHS MAGNOLIA Administration Melatonin 10 mg 02/17/19 23:57 02/21/19 20:57 Melatonin PO 10 mg QHS MAGNOLIA Administration Metolazone 2.5 mg 02/18/19 06:00 02/22/19 04:38 Zaroxolyn PO 2.5 mg MOTH MAGNOLIA Administration Multi-Ingredient Cream 1 applic 02/21/19 22:00 02/21/19 20:59 Eucerin TOPICAL 1 applicatio QHS MAGNOLIA Administration Protocol Nystatin 1 applic 02/19/19 22:00 02/22/19 04:41 Mycostatin Powder TOPICAL 1 applicatio 0600,2200 [facility] Administration Protocol Oxycodone HCl 5 mg 02/17/19 18:05 02/22/19 10:59 Oxyir PO 5 mg Q4H PRN PRN Administration Pain Score 6-10/10 Polyethylene Glycol 17 gm 02/18/19 06:00 02/22/19 04:38 Miralax PO 17 gm DAILY MAGNOLIA Administration Potassium Chloride 20 meq 02/17/19 22:00 02/21/19 20:57 K-Dur PO 20 meq QHS MAGNOLIA Administration Pramipexole Dihydrochloride 0.125 mg 02/17/19 22:00 02/22/19 04:38 Mirapex PO 0.125 mg TID MAGNOLIA Administration Pramipexole Dihydrochloride 0.25 mg 02/17/19 22:00 02/22/19 04:38 Mirapex PO 0.25 mg TID MAGNOLIA Administration Propranolol HCl 120 mg 02/17/19 18:30 02/22/19 04:38 Inderal La PO 120 mg DAILY MAGNOLIA Administration Senna/Docusate Sodium 2 tablet 02/18/19 06:00 02/22/19 04:38 Senokot-S, Amanda-Colace PO 2 tablet BID MAGNOLIA Administration Tizanidine HCl 4 mg 02/17/19 18:30 02/20/19 15:14 Zanaflex PO 4 mg Q6H PRN PRN Administration SPASMS Tuberculin PPD 5 tu 02/25/19 10:00 Tubersol, Aplisol, Ppd ID 02/25/19 10:01 X1 ONE Problem List (Last Updated 02/01/19 @ 12:49 by Romaine Voss AMMONIA DISTILLER-C) Debility (Acute) Spinal stenosis, lumbar region with neurogenic claudication (Acute) Lumbar spondylosis (Acute) Diabetes mellitus (Chronic) Hypertension (Chronic) Anemia (Chronic) Body mass index (BMI) 40.0-44.9, adult (Chronic) Depression (Chronic) Coronary artery disease (Chronic) Muscle spasm (Acute) Vital Signs Temp Pulse Resp BP Pulse Ox 99.5 F H 60 18 157/79 H 95 02/21/19 15:37 02/22/19 07:24 02/22/19 07:24 02/21/19 15:37 02/22/19 13:21 Oxygen Flow Rate (L/min) 2 Oxygen Delivery Method Room Air Weight: 116.261 kg Body Mass Index (BMI) 43.9 Finger Stick Blood Glucose 225 Sodium 137 mmol/L (136-145) 02/18/19 04:50 Potassium 4.1 mmol/L (3.5-5.1) 02/18/19 04:50 Chloride 99 mmol/L (98-107) 02/18/19 04:50 Carbon Dioxide 32.0 mmol/L (21.0-32.0) 02/18/19 04:50 Anion Gap 6 (5-15) 02/18/19 04:50 BUN 25 mg/dL (7-18) H 02/18/19 04:50 Creatinine 0.92 mg/dL (0.55-1.02) 02/18/19 04:50 Est GFR (MDRD) Af Amer 78 mL/min (>60) 02/18/19 04:50 Est GFR (MDRD) Non-Af 65 mL/min (>60) 02/18/19 04:50 BUN/Creatinine Ratio 27.1 RATIO (10-20) H 02/18/19 04:50 Glucose 90 mg/dL (74-106) 02/18/19 04:50 Assessment/Plan: *1. Pain: acetaminophen 1000mg Q6H PRN pain (1-5/10), oxycodone 5mg PO Q4H PRN pain (6-1010). Please consider scheduling oxycodone if clinically appropriate. Patient has been requiring frequent doses the past 2 days. Or could consider scheduling acetaminophen to promote multimodal analgesia and decrease narcotic demand. Please continue to monitor for constipation, drowsiness and respiratory depression. *2. Type II diabetes mellitus: Humalog 75/25 42units SC with breakfast and 55units SC with dinner. Last A1c from 01/2018, please consider ordering an A1c now and then annually as clinically appropriate. Please continue to monitor blood glucose and for S/S of hypo/hyperglycemia. 3. Coronary artery disease: propranolol LA 120mg PO daily, losartan 100mg PO daily, isosorbide mononitrate 30mg PO daily. Please continue to monitor blood pressure, heart rate, and renal function. 4. Edema: furosemide 40mg PO daily, metolazone 2.5mg PO Friday and . Please continue to monitor electrolytes, fluid status and renal function. 5. Asthma: ipratropium/albuterol nebulized solution 3mL inhalation Q6HWA.RT and albuterol nebulized solution 2.5mg inhalation Q4H PRN SOB/wheezing. Please continue to monitor for increased PRN usage and increased HR. 6. Hypokalemia: potassium chloride 20mEq PO QHS. Please continue to monitor potassium levels. 7. Neuropathic pain: gabapentin 800mg PO 4x/day. Please continue to monitor for confusion and renal function. 8. Restless leg syndrome: pramipexole 0.375mg PO TID. Please continue to monitor for S/S of restless legs. 9. Muscle spasm: tizanidine 4mg PO Q6H PRN spasms. Please continue to monitor for muscle spasms and PRN usage. Psychotropic Medications: 1. Depression: citalopram 40mg PO daily. Please see physician note regarding GDR. Please continue to monitor for dry mouth and diarrhea. *Unnecessary Medications: melatonin 10mg PO QHS. I could not find a documented indication for melatonin. Please consider D/C if clinically appropriate. Bowel Regimen: Miralax 17gm PO daily, senna/docusate 2T PO BID, bisacodyl 10mg daily PRN constipation. Please continue to monitor for constipation and increased PRN usage. Date of Note:: 02/22/19 - Provider Comments Provider responsibility: Provider responsible to enter orders to implement recommendations <Perez Garza Chi - Last Filed: 02/22/19 21:38> Progress Note - Pharmacy Subjective: [] Objective: Allergies rivaroxaban [From Xarelto] Allergy (Intermediate, Verified 02/01/19 13:17) Itching latex Allergy (Verified 02/01/19 13:17) Itching pravastatin Allergy (Verified 02/17/19 18:03) Unknown codeine Adverse Reaction (Severe, Verified 02/01/19 13:17) Itching zolpidem [From Ambien] Adverse Reaction (Severe, Verified 02/01/19 13:17) Sleep walking/talking environmental Allergy (Uncoded 01/18/19 09:01) Other Current Medications Generic Name Dose Route Start Last Admin Trade Name Freq PRN Reason Stop Dose Admin Acetaminophen 1,000 mg 02/17/19 19:50 02/22/19 09:07 Tylenol PO 1,000 mg Q6H PRN Administration Pain Score 1-5/10 Albuterol Sulfate 2.5 mg 02/17/19 18:05 Ventolin Aerosols INHALATION Q4H PRN PRN SOB &/OR WHEEZING Albuterol/Ipratropium 3 ml 02/17/19 18:30 02/22/19 18:42 Duoneb INHALATION 3 ml Q6HWA.RT MAGNOLIA Administration Bisacodyl 10 mg 02/17/19 19:51 Dulcolax PO DAILY PRN Constipation Citalopram Hydrobromide 40 mg 02/18/19 06:00 02/22/19 04:38 Celexa PO 40 mg DAILY MAGNOLIA Administration Furosemide 40 mg 02/17/19 18:30 02/22/19 04:38 Lasix PO 40 mg DAILY MAGNOLIA Administration Gabapentin 800 mg 02/17/19 22:00 02/22/19 17:20 Neurontin PO 800 mg 4X/DAY MAGNOLIA Administration Insulin Lispro Protam/Lispro Human 42 unit 02/23/19 08:00 02/22/19 08:51 Humalog Mix 75-25 Kwikpen ([facility]) SC 42 u BREAKFAST MAGNOLIA Administration Insulin Lispro Protam/Lispro Human 55 unit 02/22/19 17:00 02/22/19 18:10 Humalog Mix 75-25 Kwikpen ([facility]) SC 55 u DINNER MAGNOLIA Administration Isosorbide Mononitrate 30 mg 02/17/19 18:30 02/22/19 04:38 Imdur PO 30 mg DAILY MAGNOLIA Administration Losartan Potassium 100 mg 02/17/19 22:00 02/21/19 20:58 Cozaar PO 100 mg QHS MAGNOLIA Administration Melatonin 10 mg 02/17/19 23:57 02/21/19 20:57 Melatonin PO 10 mg QHS MAGNOLIA Administration Metolazone 2.5 mg 02/18/19 06:00 02/22/19 04:38 Zaroxolyn PO 2.5 mg MOTH MAGNOLIA Administration Multi-Ingredient Cream 1 applic 02/21/19 22:00 02/21/19 20:59 Eucerin TOPICAL 1 applicatio QHS MAGNOLIA Administration Protocol Nystatin 1 applic 02/19/19 22:00 02/22/19 04:41 Mycostatin Powder TOPICAL 1 applicatio 0600,2200 MAGNOLIA Administration Protocol Oxycodone HCl 5 mg 02/17/19 18:05 02/22/19 15:12 Oxyir PO 5 mg Q4H PRN PRN Administration Pain Score 6-10/10 Polyethylene Glycol 17 gm 02/18/19 06:00 02/22/19 04:38 Miralax PO 17 gm DAILY MAGNOLIA Administration Potassium Chloride 20 meq 02/17/19 22:00 02/21/19 20:57 K-Dur PO 20 meq QHS MAGNOLIA Administration Pramipexole Dihydrochloride 0.125 mg 02/17/19 22:00 02/22/19 14:32 Mirapex PO 0.125 mg TID MAGNOLIA Administration Pramipexole Dihydrochloride 0.25 mg 02/17/19 22:00 02/22/19 14:33 Mirapex PO 0.25 mg TID MAGNOLIA Administration Propranolol HCl 120 mg 02/17/19 18:30 02/22/19 04:38 Inderal La PO 120 mg DAILY MAGNOLIA Administration Senna/Docusate Sodium 2 tablet 02/18/19 06:00 02/22/19 17:20 Senokot-S, Amanda-Colace PO 2 tablet BID MAGNOLIA Administration Tizanidine HCl 4 mg 02/17/19 18:30 02/20/19 15:14 Zanaflex PO 4 mg Q6H PRN PRN Administration SPASMS Tuberculin PPD 5 tu 02/25/19 10:00 Tubersol, Aplisol, Ppd ID 02/25/19 10:01 X1 ONE Problem List (Last Updated 02/01/19 @ 12:49 by Romaine H Roof, AMMONIA DISTILLER-C) Debility (Acute) Spinal stenosis, lumbar region with neurogenic claudication (Acute) Lumbar spondylosis (Acute) Diabetes mellitus (Chronic) Hypertension (Chronic) Anemia (Chronic) Body mass index (BMI) 40.0-44.9, adult (Chronic) Depression (Chronic) Coronary artery disease (Chronic) Muscle spasm (Acute) Vital Signs Temp Pulse Resp BP Pulse Ox 99.1 F 62 18 120/63 95 02/22/19 15:48 02/22/19 18:42 02/22/19 18:42 02/22/19 15:48 02/22/19 18:08 Oxygen Flow Rate (L/min) 2 Oxygen Delivery Method Room Air Weight: 116.261 kg Body Mass Index (BMI) 43.9 Finger Stick Blood Glucose 225 Sodium 137 mmol/L (136-145) 02/18/19 04:50 Potassium 4.1 mmol/L (3.5-5.1) 02/18/19 04:50 Chloride 99 mmol/L (98-107) 02/18/19 04:50 Carbon Dioxide 32.0 mmol/L (21.0-32.0) 02/18/19 04:50 Anion Gap 6 (5-15) 02/18/19 04:50 BUN 25 mg/dL (7-18) H 02/18/19 04:50 Creatinine 0.92 mg/dL (0.55-1.02) 02/18/19 04:50 Est GFR (MDRD) Af Amer 78 mL/min (>60) 02/18/19 04:50 Est GFR (MDRD) Non-Af 65 mL/min (>60) 02/18/19 04:50 BUN/Creatinine Ratio 27.1 RATIO (10-20) H 02/18/19 04:50 Glucose 90 mg/dL (74-106) 02/18/19 04:50 Assessment/Plan: Psychotropic Medications: Unnecessary Medications: Bowel Regimen: - Provider Comments Provider responsibility: Provider responsible to enter orders to implement recommendations Provider Comments to Recommendations by Pharmacy: Agree
[2019-02-22 17:10] LABS: Bedside Glucose 145 mg/dL (70-110)
[2019-02-22] MEDS: Insulin Human 75/25 Kwickpen 55 UNIT SC (18:10)
[2019-02-22 21:11] LABS: Bedside Glucose 112 mg/dL (70-110)
[2019-02-22] MEDS: MELATONIN 10 MG TABLET PO (22:06)
[2019-02-22] MEDS: Losartan Potassium 100 MG Tablet PO (22:07)
[2019-02-23 03:21] LABS: Bedside Glucose 92 mg/dL (70-110)
[2019-02-23] MEDS: oxyCODONE 5 MG Tablet PO ×4 (03:21→21:10)
[2019-02-23] MEDS: Polyethylene Glycol 3350 17 GM PACKET PO (04:13)
[2019-02-23] MEDS: Citalopram 20 MG Tablet 40 MG PO (04:13)
[2019-02-23] MEDS: Senna/Docusate Sodium 1 Tablet 2 TABLET PO ×2 (04:13→17:19)
[2019-02-23] MEDS: Furosemide 40 MG Tablet PO (04:13)
[2019-02-23] MEDS: Isosorbide Mononitrate 30 MG Tablet PO (04:13)
[2019-02-23] MEDS: Pramipexole Di-HCl 0.25 MG Tablet PO ×3 (04:14→21:01)
[2019-02-23] MEDS: Pramipexole Di-HCl 0.125 MG Tablet PO ×3 (04:14→21:01)
[2019-02-23] MEDS: Nystatin Powder 15gm Bottle 1 APPLIC TOPICAL ×2 (04:14→21:01)
[2019-02-23] MEDS: Gabapentin 800 MG Tablet PO ×4 (04:14→21:01)
[2019-02-23] MEDS: Propranolol LA 60 MG Capsule 120 MG PO (04:14)
[2019-02-23 06:31] LABS: Bedside Glucose 147 mg/dL (70-110)
[2019-02-23 07:10] VITALS: PULSE 68; RESP 16; O2SAT 86
[2019-02-23] MEDS: Ipratropium/Albuterol Sulfate 3 ML AMPUL.NEB INHALATION (07:10)
[2019-02-23] MEDS: Insulin Human 75/25 Kwickpen 42 UNIT SC (08:07)
[2019-02-23 11:00] LABS: Bedside Glucose 155 mg/dL (70-110)
[2019-02-23 16:00] VITALS: BP 121/51; PULSE 68; RESP 20; TEMP 37.3; O2SAT 92
[2019-02-23 16:55] LABS: Bedside Glucose 166 mg/dL (70-110)
[2019-02-23] MEDS: Insulin Human 75/25 Kwickpen 55 UNIT SC (17:20)
[2019-02-23 20:25] VITALS: PULSE 70; RESP 20
[2019-02-23 21:01] LABS: Bedside Glucose 145 mg/dL (70-110)
[2019-02-23] MEDS: Losartan Potassium 100 MG Tablet PO (21:01)
[2019-02-23] MEDS: MELATONIN 10 MG TABLET PO (21:08)
[2019-02-24] VITALS (10 sets, daily range): BP systolic 143; BP diastolic 61; PULSE 62–82; RESP 16–20; TEMP 37; O2SAT 90–98
[2019-02-24] MEDS: Acetaminophen 500 MG Tablet 1000 MG PO ×3 (00:40→20:52)
[2019-02-24] MEDS: Furosemide 40 MG Tablet PO (04:03)
[2019-02-24] MEDS: Polyethylene Glycol 3350 17 GM PACKET PO (04:03)
[2019-02-24] MEDS: Pramipexole Di-HCl 0.125 MG Tablet PO ×3 (04:03→20:51)
[2019-02-24] MEDS: Citalopram 20 MG Tablet 40 MG PO (04:03)
[2019-02-24] MEDS: Isosorbide Mononitrate 30 MG Tablet PO (04:03)
[2019-02-24] MEDS: Pramipexole Di-HCl 0.25 MG Tablet PO ×3 (04:03→20:52)
[2019-02-24] MEDS: Gabapentin 800 MG Tablet PO ×4 (04:03→20:52)
[2019-02-24] MEDS: Senna/Docusate Sodium 1 Tablet 2 TABLET PO ×2 (04:04→17:17)
[2019-02-24] MEDS: oxyCODONE 5 MG Tablet PO ×4 (04:04→23:49)
[2019-02-24] MEDS: Propranolol LA 60 MG Capsule 120 MG PO (04:05)
[2019-02-24] MEDS: Nystatin Powder 15gm Bottle 1 APPLIC TOPICAL ×2 (04:06→20:52)
[2019-02-24 06:30] LABS: Bedside Glucose 108 mg/dL (70-110)
[2019-02-24] MEDS: Ipratropium/Albuterol Sulfate 3 ML AMPUL.NEB INHALATION ×3 (06:40→19:12)
--- NOTE | 2019-02-24 08:55 | NURSING ---
Pt's BS prior to breakfast was 108. Pt has order for scheduled 42 units of Humalog Mix 75-25 at breakfast. Pt stated that she would not take insulin at home d/t fear of BS dropping and does not want scheduled insulin at this time. Reported to Nahomy MARIA.
--- NOTE | 2019-02-24 09:48 | CASEMGMT ---
Social Work IDT met with patient and for care plan meeting. Discussed patient's progress in therapy. Pt is min assist for LE ADLs to follow back precautions, SBA for toileting and UE ADLs, walking 80 ft with FWW SBA, completed 1 step CGA, SBA for transfers. Pt will continue to work with therapy for higher level tasks. Explained insurance coverage, update 02/22, continued stay is not guaranteed, have not received outcome yet. Pt will return home with . Will continue to follow. LINNEA HerreraW
[2019-02-24 11:31] LABS: Bedside Glucose 166 mg/dL (70-110)
[2019-02-24 16:55] LABS: Bedside Glucose 171 mg/dL (70-110)
[2019-02-24] MEDS: Insulin Human 75/25 Kwickpen 55 UNIT SC (18:09)
[2019-02-24] MEDS: MELATONIN 10 MG TABLET PO (20:51)
[2019-02-24] MEDS: Losartan Potassium 100 MG Tablet PO (20:52)
[2019-02-24 20:56] LABS: Bedside Glucose 177 mg/dL (70-110)
[2019-02-24 21:30] LABS: Bedside Glucose 177 mg/dL (70-110)
[2019-02-25] MEDS: Isosorbide Mononitrate 30 MG Tablet PO (04:01)
[2019-02-25] MEDS: Furosemide 40 MG Tablet PO (04:01)
[2019-02-25] MEDS: Propranolol LA 60 MG Capsule 120 MG PO (04:01)
[2019-02-25] MEDS: Senna/Docusate Sodium 1 Tablet 2 TABLET PO (04:01)
[2019-02-25] MEDS: Pramipexole Di-HCl 0.25 MG Tablet PO ×3 (04:02→20:44)
[2019-02-25] MEDS: Citalopram 20 MG Tablet 40 MG PO (04:02)
[2019-02-25] MEDS: Nystatin Powder 15gm Bottle 1 APPLIC TOPICAL ×2 (04:02→20:52)
[2019-02-25] MEDS: Gabapentin 800 MG Tablet PO ×4 (04:02→20:47)
[2019-02-25] MEDS: Pramipexole Di-HCl 0.125 MG Tablet PO ×3 (04:02→20:43)
[2019-02-25] MEDS: Metolazone 2.5 MG Tablet PO (04:02)
[2019-02-25] MEDS: oxyCODONE 5 MG Tablet PO ×3 (04:02→19:58)
--- NOTE | 2019-02-25 06:41 | NURSING ---
Addendum entered by Nahomy Albarado 02/25/19 11:09: UA positive, Dr Garza new order for cipro x5 days. pt updated. Original Note: Pt c/o burning with urination. Urine noted to be cloudy. Will update Dr Garza.
[2019-02-25 06:50] LABS: Bedside Glucose 112 mg/dL (70-110)
[2019-02-25] MEDS: Ipratropium/Albuterol Sulfate 3 ML AMPUL.NEB INHALATION ×3 (07:17→19:45)
[2019-02-25 07:18] VITALS: PULSE 70; RESP 18; O2SAT 92
[2019-02-25 09:54] LABS: Red Blood Cells-Urine 0 SEEN /hpf (0-5)
[2019-02-25 09:56] LABS: Color, Urine Yellow (Yellow); Glucose, Dipstick Normal (Normal); Ketone-Dipstick Negative (Negative); Leukocyte Esterase-Dipstick 500 /ul (Negative); Nitrite-Dipstick Positive (Negative); Occult Blood-Urine 25 /ul (Negative); Protein-Dipstick 15 mg/dl (Negative); Urine Bilirubin Dipstick Negative (Negative); Urine Clarity Cloudy (Clear); Urine Urobilinogen Normal (Normal); Urine pH 6.5 (5.0 - 8.0)
[2019-02-25 10:02] LABS: White Blood Cells >100 SEEN /hpf (0-5)
[2019-02-25 10:04] LABS: Bacteria 2+ /hpf (None Seen); Mucous, Urine 0 SEEN /hpf (<or=2+); Squamous Epithelial Cells - UA 0-5 SEEN /hpf (5-10)
[2019-02-25] MEDS: Acetaminophen 500 MG Tablet 1000 MG PO (10:15)
[2019-02-25 11:01] LABS: Bedside Glucose 142 mg/dL (70-110)
[2019-02-25] MEDS: Tuberculin,Purif.prot.deriv. 50 TU/ML Vial 5 ML ID (11:29)
[2019-02-25 11:38] VITALS: O2SAT 95
[2019-02-25 13:49] VITALS: PULSE 69; RESP 18
[2019-02-25 15:48] VITALS: BP 123/42; PULSE 62; RESP 18; TEMP 36.8; O2SAT 92
[2019-02-25 16:46] LABS: Bedside Glucose 212 mg/dL (70-110)
[2019-02-25] MEDS: Insulin Human 75/25 Kwickpen 55 UNIT SC (17:45)
[2019-02-25] MEDS: Ciprofloxacin 250 MG Tablet PO (17:46)
[2019-02-25 19:45] VITALS: PULSE 70; RESP 18
[2019-02-25] MEDS: Losartan Potassium 100 MG Tablet PO (20:47)
[2019-02-25] MEDS: MELATONIN 10 MG TABLET PO (20:51)
[2019-02-25 21:41] LABS: Bedside Glucose 82 mg/dL (70-110)
--- NOTE | 2019-02-25 23:37 | NURSING ---
[id number] Patient called out requesting Tylenol. Went to see pt with Tylenol in hand and patient was asleep, snoring softly.
[2019-02-26 01:31] LABS: Bedside Glucose 132 mg/dL (70-110)
[2019-02-26] MEDS: oxyCODONE 5 MG Tablet PO ×3 (02:32→20:11)
[2019-02-26] MEDS: Ciprofloxacin 250 MG Tablet PO ×2 (06:11→17:32)
[2019-02-26] MEDS: Citalopram 20 MG Tablet 40 MG PO (06:11)
[2019-02-26] MEDS: Isosorbide Mononitrate 30 MG Tablet PO (06:11)
[2019-02-26] MEDS: Furosemide 40 MG Tablet PO (06:12)
[2019-02-26] MEDS: Propranolol LA 60 MG Capsule 120 MG PO (06:12)
[2019-02-26] MEDS: Pramipexole Di-HCl 0.125 MG Tablet PO ×3 (06:13→20:15)
[2019-02-26] MEDS: Pramipexole Di-HCl 0.25 MG Tablet PO ×3 (06:13→20:15)
[2019-02-26] MEDS: Senna/Docusate Sodium 1 Tablet 2 TABLET PO (06:13)
[2019-02-26] MEDS: Gabapentin 800 MG Tablet PO ×4 (06:13→20:15)
[2019-02-26] MEDS: Nystatin Powder 15gm Bottle 1 APPLIC TOPICAL ×2 (06:14→20:20)
[2019-02-26 06:23] VITALS: BP 151/51; PULSE 62; RESP 20; TEMP 37.2; O2SAT 91
[2019-02-26] MEDS: Acetaminophen 500 MG Tablet 1000 MG PO (06:27)
[2019-02-26 06:28] VITALS: PULSE 74; RESP 16; O2SAT 92
[2019-02-26] MEDS: Ipratropium/Albuterol Sulfate 3 ML AMPUL.NEB INHALATION (06:28)
[2019-02-26 06:31] LABS: Bedside Glucose 111 mg/dL (70-110)
[2019-02-26] MEDS: Insulin Human 75/25 Kwickpen 42 UNIT SC (08:01)
--- NOTE | 2019-02-26 08:07 | NURSING ---
PT REQUESTED ONLY 25 UNITS OF INSULIN. PT STATED WHEN MY B.S IS THAT LOW I ONLY GIVE MYSELF 25 UNITS. REPORTED TO CANDACE CARUSO
[2019-02-26 10:10] VITALS: PULSE 60; RESP 18; O2SAT 92
[2019-02-26 11:50] LABS: Bedside Glucose 154 mg/dL (70-110)
--- NOTE | 2019-02-26 13:12 | NURSING ---
PT COMPLAINED OF ITCHINESS TO BACK. THIS NURSE LOOKED AT BACK AND IT WAS RED AND DRY. PT STATED SHE HAD BEEN SCRATCHING. APPLIED LOTION. PT STATED IT FELT BETTER. PT ALSO ASKING FOR A K-PAD FOR LEFT BUTTOCK AND HIP DUE TO ACHINESS. REPORTED TO CANDACE CARUSO
[2019-02-26 15:39] VITALS: BP 151/70; PULSE 64; RESP 18; TEMP 36.8; O2SAT 91
[2019-02-26 16:36] LABS: Bedside Glucose 145 mg/dL (70-110)
[2019-02-26] MEDS: Insulin Human 75/25 Kwickpen 55 UNIT SC (17:33)
[2019-02-26] MEDS: Losartan Potassium 100 MG Tablet PO (20:12)
[2019-02-26] MEDS: MELATONIN 10 MG TABLET PO (20:20)
[2019-02-26 21:20] LABS: Bedside Glucose 125 mg/dL (70-110)
[2019-02-27] MEDS: oxyCODONE 5 MG Tablet PO ×3 (00:45→21:51)
[2019-02-27 06:44] VITALS: PULSE 77; RESP 16; O2SAT 93
[2019-02-27] MEDS: Gabapentin 800 MG Tablet PO ×4 (06:44→20:14)
[2019-02-27] MEDS: Ciprofloxacin 250 MG Tablet PO ×2 (06:44→17:31)
[2019-02-27] MEDS: Furosemide 40 MG Tablet PO (06:44)
[2019-02-27] MEDS: Pramipexole Di-HCl 0.125 MG Tablet PO ×3 (06:44→20:14)
[2019-02-27] MEDS: Pramipexole Di-HCl 0.25 MG Tablet PO ×3 (06:45→20:14)
[2019-02-27] MEDS: Isosorbide Mononitrate 30 MG Tablet PO (06:45)
[2019-02-27] MEDS: Citalopram 20 MG Tablet 40 MG PO (06:46)
[2019-02-27] MEDS: Propranolol LA 60 MG Capsule 120 MG PO (06:47)
[2019-02-27] MEDS: Senna/Docusate Sodium 1 Tablet 2 TABLET PO ×2 (06:47→17:31)
[2019-02-27] MEDS: Nystatin Powder 15gm Bottle 1 APPLIC TOPICAL ×2 (06:47→20:15)
[2019-02-27 07:11] LABS: Bedside Glucose 109 mg/dL (70-110)
[2019-02-27 10:50] LABS: Bedside Glucose 148 mg/dL (70-110)
[2019-02-27 12:48] VITALS: PULSE 74; RESP 16
[2019-02-27] MEDS: Ipratropium/Albuterol Sulfate 3 ML AMPUL.NEB INHALATION ×2 (12:48→18:50)
[2019-02-27 15:24] VITALS: BP 132/51; PULSE 54; RESP 20; TEMP 37.1; O2SAT 90
[2019-02-27 17:01] LABS: Bedside Glucose 185 mg/dL (70-110)
[2019-02-27] MEDS: Insulin Human 75/25 Kwickpen 55 UNIT SC (17:31)
[2019-02-27] MEDS: Acetaminophen 500 MG Tablet 1000 MG PO (17:36)
[2019-02-27 18:50] VITALS: PULSE 67; RESP 18; O2SAT 96
[2019-02-27] MEDS: MELATONIN 10 MG TABLET PO (20:14)
[2019-02-27] MEDS: Losartan Potassium 100 MG Tablet PO (20:14)
[2019-02-27 21:01] LABS: Bedside Glucose 147 mg/dL (70-110)
[2019-02-27] MEDS: tiZANidine HCl 2 MG Tablet 4 MG PO (21:51)
[2019-02-28 03:11] LABS: Bedside Glucose 160 mg/dL (70-110)
[2019-02-28] MEDS: Polyethylene Glycol 3350 17 GM PACKET PO (05:08)
[2019-02-28] MEDS: Gabapentin 800 MG Tablet PO ×4 (05:08→20:19)
[2019-02-28] MEDS: Propranolol LA 60 MG Capsule 120 MG PO (05:09)
[2019-02-28] MEDS: Isosorbide Mononitrate 30 MG Tablet PO (05:09)
[2019-02-28] MEDS: Pramipexole Di-HCl 0.25 MG Tablet PO ×3 (05:09→20:18)
[2019-02-28] MEDS: Senna/Docusate Sodium 1 Tablet 2 TABLET PO ×3 (05:09→20:19)
[2019-02-28] MEDS: Furosemide 40 MG Tablet PO (05:09)
[2019-02-28] MEDS: Citalopram 20 MG Tablet 40 MG PO (05:10)
[2019-02-28] MEDS: Pramipexole Di-HCl 0.125 MG Tablet PO ×3 (05:10→20:19)
[2019-02-28] MEDS: Ciprofloxacin 250 MG Tablet PO ×2 (05:10→17:28)
[2019-02-28 05:13] VITALS: BP 119/50; PULSE 58
[2019-02-28] MEDS: Nystatin Powder 15gm Bottle 1 APPLIC TOPICAL ×2 (05:37→20:21)
[2019-02-28 06:27] VITALS: PULSE 70; RESP 16; O2SAT 97
[2019-02-28] MEDS: Ipratropium/Albuterol Sulfate 3 ML AMPUL.NEB INHALATION (06:27)
[2019-02-28 06:36] LABS: Bedside Glucose 144 mg/dL (70-110)
[2019-02-28] MEDS: oxyCODONE 5 MG Tablet PO ×3 (07:08→19:02)
[2019-02-28] MEDS: Insulin Human 75/25 Kwickpen 42 UNIT SC (08:08)
[2019-02-28 10:31] LABS: Bedside Glucose 127 mg/dL (70-110)
[2019-02-28 15:27] VITALS: BP 125/51; PULSE 84; RESP 20; TEMP 37.1; O2SAT 95
[2019-02-28 16:45] LABS: Bedside Glucose 132 mg/dL (70-110)
[2019-02-28] MEDS: Insulin Human 75/25 Kwickpen 55 UNIT SC (17:28)
[2019-02-28] MEDS: Losartan Potassium 100 MG Tablet PO (20:20)
[2019-02-28] MEDS: MELATONIN 10 MG TABLET PO (20:24)
[2019-02-28 21:06] LABS: Bedside Glucose 210 mg/dL (70-110)
[2019-03-01] MEDS: oxyCODONE 5 MG Tablet PO ×3 (01:57→19:56)
[2019-03-01 05:12] VITALS: BP 105/71; PULSE 63; O2SAT 93
[2019-03-01] MEDS: Pramipexole Di-HCl 0.25 MG Tablet PO ×3 (05:16→20:01)
[2019-03-01] MEDS: Metolazone 2.5 MG Tablet PO (05:16)
[2019-03-01] MEDS: Gabapentin 800 MG Tablet PO ×4 (05:16→20:01)
[2019-03-01] MEDS: Isosorbide Mononitrate 30 MG Tablet PO (05:16)
[2019-03-01] MEDS: Furosemide 40 MG Tablet PO (05:16)
[2019-03-01] MEDS: Polyethylene Glycol 3350 17 GM PACKET PO (05:16)
[2019-03-01] MEDS: Propranolol LA 60 MG Capsule 120 MG PO (05:16)
[2019-03-01] MEDS: Citalopram 20 MG Tablet 40 MG PO (05:16)
[2019-03-01] MEDS: Pramipexole Di-HCl 0.125 MG Tablet PO ×3 (05:16→20:01)
[2019-03-01] MEDS: Nystatin Powder 15gm Bottle 1 APPLIC TOPICAL ×2 (05:17→19:57)
[2019-03-01] MEDS: Ciprofloxacin 250 MG Tablet PO ×2 (05:17→17:42)
[2019-03-01 06:31] LABS: Bedside Glucose 96 mg/dL (70-110)
[2019-03-01 06:40] VITALS: PULSE 60; RESP 16; O2SAT 93
[2019-03-01] MEDS: Ipratropium/Albuterol Sulfate 3 ML AMPUL.NEB INHALATION (06:40)
[2019-03-01] MEDS: Insulin Human 75/25 Kwickpen 42 UNIT SC (07:58)
--- NOTE | 2019-03-01 08:00 | NURSING ---
PT BLOOD SUGAR 96 AT BREAKFAST. PT REQUESTED ONLY 30 UNITS OF HUMALOG MIX.
[2019-03-01 11:25] LABS: Bedside Glucose 83 mg/dL (70-110)
[2019-03-01] MEDS: Bisacodyl 5 MG Tablet 10 MG PO (11:44)
[2019-03-01 15:46] VITALS: BP 124/41; PULSE 68; RESP 17; TEMP 36.6; O2SAT 97
--- NOTE | 2019-03-01 16:29 | CASEMGMT ---
Addendum entered by Dayna Connors 03/02/19 12:28: Patient chose [facility]. Referral made. Original Note: Social Work Insurance issued LCD 03/03, DC home 03/04. Explained appeal rights. Pt stated with HHC she would be okay to go home. Provided list of HHC agencies to pt. Pt would like PT/OT/ST/SN, and a FWW. Referral made to [facility] [place] [facility]. Pt to provide HHC agency. Plan: DC home with 03/04 with HHC PT/OT/ST/SN, [employer] FWW. Dayna Connors, LINNEA STERNMAN
[2019-03-01 17:06] LABS: Bedside Glucose 157 mg/dL (70-110)
[2019-03-01] MEDS: Insulin Human 75/25 Kwickpen 55 UNIT SC (17:41)
[2019-03-01] MEDS: Senna/Docusate Sodium 1 Tablet 2 TABLET PO (17:42)
--- NOTE | 2019-03-01 19:48 | DCINST_ITS ---
- Discharge Diagnoses Current Active Problems: Current Active and Chronic Problems (Last Updated 02/01/19 @ 12:49 by HOLLI HitchcockC) Debility (Acute) Spinal stenosis, lumbar region with neurogenic claudication (Acute) Lumbar spondylosis (Acute) Diabetes mellitus (Chronic) Hypertension (Chronic) Anemia (Chronic) Body mass index (BMI) 40.0-44.9, adult (Chronic) Depression (Chronic) Coronary artery disease (Chronic) Muscle spasm (Acute) You will use the following diet at home:: No restrictions, Regular Your food should be the consistency of: Regular Your liquids should be the consistency of: Regular/Thin Discharge Activity: Return to Normal Activity, May Shower, Use Walker May resume sexual activity in: 6 weeks Weight Bearing Status: Weight bearing as tolerated Call your doctor if you observe: Fever of 101 or Higher, Inability to urinate, Inability to have a bowel movement, Shortness of breath, Chest pain, Uncontrolled pain Allergies/Adverse Reactions: Allergies rivaroxaban [From Xarelto] Allergy (Intermediate, Verified 02/01/19 13:17) Itching latex Allergy (Verified 02/01/19 13:17) Itching pravastatin Allergy (Verified 02/17/19 18:03) Unknown codeine Adverse Reaction (Severe, Verified 02/01/19 13:17) Itching zolpidem [From Ambien] Adverse Reaction (Severe, Verified 02/01/19 13:17) Sleep walking/talking environmental Allergy (Uncoded 01/18/19 09:01) Other Medications to take at Discharge Ropinirole HCl [Requip] 4 mg PO BID 02/23/13 losartan 100 mg tablet 100 mg PO QHS 02/28/17 propranolol ER 120 mg capsule,24 hr,extended release 120 mg PO QDAY 02/28/17 Gabapentin [Neurontin] 800 mg PO 4X/DAY 03/27/17 citalopram 20 mg tablet 40 mg PO DAILY tab 08/03/18 Furosemide 40 mg PO DAILY 02/17/19 Isosorbide Mononitrate [Isosorbide Mononitrate ER] 30 mg PO DAILY 02/17/19 Metolazone [Zaroxolyn] 2.5 mg PO MOTH 02/17/19 Potassium Chloride [K-Dur] 20 meq PO QHS 02/17/19 Umeclidinium Brm/Vilanterol Tr [Anoro Ellipta 62.5-25 Mcg INH] 1 inh INHALATION QDAY 02/17/19 Acetaminophen [Tylenol] 1,000 mg PO Q6H PRN tablet 03/01/19 Insulin Human 75/25 [Humalog Mix 75-25 Kwikpen ([facility])] 42 unit SC BREAKFAST insuln.pen 03/01/19 Insulin Human 75/25 [Humalog Mix 75-25 Kwikpen ([facility])] 55 unit SC DINNER insuln.pen 03/01/19 Melatonin 10 mg PO QHS tablet 03/01/19 Mineral Oil/Petrolatum,White [Eucerin] 1 applic TOPICAL QHS jar 03/01/19 Nystatin Powder [Mycostatin Powder] 1 applic TOPICAL 0600,2200 bottle 03/01/19 Oxycodone [Oxyir] 5 mg PO Q4H PRN PRN 7 Days #42 tab 03/01/19 Polyethylene Glycol 3350 [Miralax] 17 gm PO DAILY packet 03/01/19 Senna/Docusate Sodium [Senokot-S] 2 tablet PO BID #120 tablet 03/01/19 Tizanidine HCl [Zanaflex] 4 mg PO Q6H PRN PRN #60 tablet 03/01/19 The following prescriptions were given: Oxycodone [Oxyir] 5 mg PO Q4H PRN PRN 7 Days #42 tab PRN Reason: Pain Score 6-10/10 Prescription Printed Senna/Docusate Sodium [Senokot-S] 2 tablet PO BID #120 tablet Tizanidine HCl [Zanaflex] 4 mg PO Q6H PRN PRN #60 tablet PRN Reason: Spasms Primary Care Physician: Kaz Cervantes DO [Primary Care Provider] - Please follow up with your Primary Care Physician in: 1 week. Test Results: Test results from this visit will be discussed in further detail at your follow- up appointment, if applicable. Please Follow Up With: KIRILL Webb/BREONNA NINO (SURGEON) When: [phone] Proposed Discharge Date: 03/04/19
--- NOTE | 2019-03-01 19:49 | DS.PCM_ITS ---
Discharge Date and Diagnosis - Problem List Patient Problems: Active and Suspected Problems (Last Updated 02/01/19 @ 12:49 by HOLLI Hitchcock) Debility (Acute) Spinal stenosis, lumbar region with neurogenic claudication (Acute) Lumbar spondylosis (Acute) Muscle spasm (Acute) Date of Admission: 02/17/19 Date of Discharge: 03/04/19 - Primary Discharge Diagnosis Active and Suspected Problems (Last Updated 02/01/19 @ 12:49 by HOLLI Hitchcock) Debility (Acute) Spinal stenosis, lumbar region with neurogenic claudication (Acute) Lumbar spondylosis (Acute) Muscle spasm (Acute) - Secondary Discharge Diagnosis Chronic Problems (Last Updated 02/01/19 @ 12:49 by ANATOLY Hitchcock) Diabetes mellitus (Chronic) Hypertension (Chronic) Anemia (Chronic) Body mass index (BMI) 40.0-44.9, adult (Chronic) Depression (Chronic) Coronary artery disease (Chronic) Atherosclerosis of [place] coronary artery of [place] heart without angina pectoris (Chronic) Essential hypertension (Chronic) Hyperlipidemia due to type 2 diabetes mellitus (Chronic) Stage 3 severe COPD by GOLD classification (Chronic) FEV1 42% of predicted Seasonal allergies (Chronic) Chronic bronchitis (Chronic) Vitamin D deficiency (Chronic) Hyperlipidemia (Chronic) Diabetic peripheral neuropathy (Chronic) Hypokalemia (Chronic) IBS (irritable bowel syndrome) (Chronic) Insomnia (Chronic) Spinal stenosis of lumbar region (Chronic) DDD (degenerative disc disease), cervical (Chronic) Disequilibrium (Chronic) Dyspnea on exertion (Chronic) GERD (gastroesophageal reflux disease) (Chronic) Morbid obesity (Chronic) DM (diabetes mellitus), type 2, uncontrolled (Chronic) . Is now feeling better and BG more controlled. Understands checking consistently and managing BG on daily basis. Pain management also creates higher BG; however this is needed for patient quality of life. Atrial septal defect (Chronic) Pulmonary emboli (Chronic) Edema (Chronic) SOB (shortness of breath) (Chronic) Asthma (Chronic) Restless leg syndrome (Chronic) Anxiety and depression (Chronic) SHANNON (obstructive sleep apnea) (Chronic) CPAP 16 cm of water Obesity (BMI 35.0-39.9 without comorbidity) (Chronic) Has medical issues as well as pain which prevent patient from activity and exercise. Discussed as usual her caloric intake as well as water aerobics and armchair exercises. Hospital Course and Treatment Imaging Results: 02/17/19 17:36 Diet: Calorie Controlled Food consistency:: Regular Liquid Consistency:: Regular/Thin Is pt able to select menu?: Yes How many daily calories?: 1800 calorie Labs (Last 48 Hours) 02/27/19 02/28/19 02/28/19 20:50 03:05 06:30 POC Glucose 147 H 160 H 144 H 02/28/19 02/28/19 02/28/19 10:27 16:39 20:59 POC Glucose 127 H 132 H 210 H 03/01/19 03/01/19 03/01/19 06:22 11:19 16:56 POC Glucose 96 83 157 H Operations: None Procedures: None Summary of Care Provided: The patient is a 68 year old Female with below past medical history hospitalized for lumbar spine surgery 02/11/[address] Garrett, admitted to TCU with debility, here for rehabilitation, strengthening, prior to discharge home with . On TCU, resident had E. Coli UTI which was treated with Cipro. Discharge home with , Home [facility] Care for PT/OT/ST/SN, [employer] for front wheeled walker. Patient Problems: Active and Suspected Problems (Last Updated 02/01/19 @ 12:49 by Romaine Voss, DOCUMENT DESIGN SPECIALIST- C) Debility (Acute) Spinal stenosis, lumbar region with neurogenic claudication (Acute) Lumbar spondylosis (Acute) Muscle spasm (Acute) - Physical Exam Vitals/I&O's: Vital Signs Temp Pulse Resp BP Pulse Ox 97.9 F 68 17 124/41 H 97 03/01/19 15:46 03/01/19 15:46 03/01/19 15:46 03/01/19 15:46 03/01/19 15:46 Oxygen Flow Rate (L/min) 2 Oxygen Delivery Method Room Air Weight: 115.241 kg Body Mass Index (BMI) 43.9 Finger Stick Blood Glucose 225 Intake and Output for Last 24 Hours 02/27/19 02/28/19 03/01/19 23:59 23:59 23:59 Intake Total 720 / 720 1080 / 1080 740 / 740 Balance 720 / 720 1080 / 1080 740 / 740 Microbiology Past 72 Hours 02/25/19 09:30 Urine, Catheterized Urine Culture - Final Escherichia coli Laboratory Results 02/28/19 20:59: POC Glucose 210 H 03/01/19 06:22: POC Glucose 96 03/01/19 11:19: POC Glucose 83 03/01/19 16:56: POC Glucose 157 H Current Medications Acetaminophen (Tylenol) 1,000 mg PO Q6H PRN PRN Reason: Pain Score 1-5/10 Last Admin: 02/27/19 17:36 Dose: 1,000 mg Documented by: Albuterol Sulfate (Ventolin Aerosols) 2.5 mg INHALATION Q4H PRN PRN PRN Reason: SOB &/OR WHEEZING Albuterol Sulfate (Ventolin Hfa (Sp)) 2 puff INHALATION Q6H PRN PRN PRN Reason: SOB &/OR WHEEZING Bisacodyl (Dulcolax) 10 mg PO DAILY PRN PRN Reason: Constipation Last Admin: 03/01/19 11:44 Dose: 10 mg Documented by: Ciprofloxacin HCl (Cipro) 250 mg PO BID [facility] Stop: 03/02/19 18:01 Last Admin: 03/01/19 17:42 Dose: 250 mg Documented by: Citalopram Hydrobromide (Celexa) 40 mg PO DAILY [facility] Last Admin: 03/01/19 05:16 Dose: 40 mg Documented by: Furosemide (Lasix) 40 mg PO DAILY [facility] Last Admin: 03/01/19 05:16 Dose: 40 mg Documented by: Gabapentin (Neurontin) 800 mg PO 4X/DAY [facility] Last Admin: 03/01/19 17:42 Dose: 800 mg Documented by: Insulin Lispro Protam/Lispro Human (Humalog Mix 75-25 Kwikpen (Bkc)) 42 unit SC BREAKFAST [facility] Last Admin: 03/01/19 07:58 Dose: 30 u Documented by: Insulin Lispro Protam/Lispro Human (Humalog Mix 75-25 Kwikpen (Bkc)) 55 unit SC DINNER [facility] Last Admin: 03/01/19 17:41 Dose: 55 u Documented by: Isosorbide Mononitrate (Imdur) 30 mg PO DAILY [facility] Last Admin: 03/01/19 05:16 Dose: 30 mg Documented by: Losartan Potassium (Cozaar) 100 mg PO QHS [facility] Last Admin: 02/28/19 20:20 Dose: 100 mg Documented by: Melatonin (Melatonin) 10 mg PO QHS [facility] Last Admin: 02/28/19 20:24 Dose: 10 mg Documented by: Metolazone (Zaroxolyn) 2.5 mg PO MOTH [facility] Last Admin: 03/01/19 05:16 Dose: 2.5 mg Documented by: Multi-Ingredient Cream (Eucerin) 1 applic TOPICAL QHS [facility]; Protocol Last Admin: 02/28/19 20:21 Dose: 1 applicatio Documented by: Nystatin (Mycostatin Powder) 1 applic TOPICAL 0600,2200 [facility]; Protocol Last Admin: 03/01/19 05:17 Dose: 1 applicatio Documented by: Oxycodone HCl (Oxyir) 5 mg PO Q4H PRN PRN PRN Reason: Pain Score 6-10/10 Last Admin: 03/01/19 11:38 Dose: 5 mg Documented by: Polyethylene Glycol (Miralax) 17 gm PO DAILY [facility] Last Admin: 03/01/19 05:16 Dose: 17 gm Documented by: Potassium Chloride (K-Dur) 20 meq PO QHS [facility] Last Admin: 02/28/19 20:19 Dose: 20 meq Documented by: Pramipexole Dihydrochloride (Mirapex) 0.125 mg PO TID [facility] Last Admin: 03/01/19 14:32 Dose: 0.125 mg Documented by: Pramipexole Dihydrochloride (Mirapex) 0.25 mg PO TID [facility] Last Admin: 03/01/19 14:32 Dose: 0.25 mg Documented by: Propranolol HCl (Inderal La) 120 mg PO DAILY [facility] Last Admin: 03/01/19 05:16 Dose: 120 mg Documented by: Senna/Docusate Sodium (Senokot-S, Amanda-Colace) 2 tablet PO BID [facility] Last Admin: 03/01/19 17:42 Dose: 2 tablet Documented by: Tizanidine HCl (Zanaflex) 4 mg PO Q6H PRN PRN PRN Reason: SPASMS Last Admin: 02/27/19 21:51 Dose: 4 mg Documented by: Discharge Diet: No Restrictions Discharge Activity: Return to Normal Activity, May Shower, Use Walker May resume sexual activity in: 6 weeks Weight Bearing Status: Weight bearing as tolerated Call your doctor if you observe: Fever of 101 or Higher, Inability to urinate, Inability to have a bowel movement, Shortness of breath, Chest pain, Uncontrolled pain Home Medications: Medications to take at Discharge Ropinirole HCl [Requip] 4 mg PO BID 02/23/13 losartan 100 mg tablet 100 mg PO QHS 02/28/17 propranolol ER 120 mg capsule,24 hr,extended release 120 mg PO QDAY 02/28/17 Gabapentin [Neurontin] 800 mg PO 4X/DAY 03/27/17 citalopram 20 mg tablet 40 mg PO DAILY tab 08/03/18 Furosemide 40 mg PO DAILY 02/17/19 Isosorbide Mononitrate [Isosorbide Mononitrate ER] 30 mg PO DAILY 02/17/19 Metolazone [Zaroxolyn] 2.5 mg PO MOTH 02/17/19 Potassium Chloride [K-Dur] 20 meq PO QHS 02/17/19 Umeclidinium Brm/Vilanterol Tr [Anoro Ellipta 62.5-25 Mcg INH] 1 inh INHALATION QDAY 02/17/19 Acetaminophen [Tylenol] 1,000 mg PO Q6H PRN tablet 03/01/19 Insulin Human 75/25 [Humalog Mix 75-25 Kwikpen (BKC)] 42 unit SC BREAKFAST insuln.pen 03/01/19 Insulin Human 75/25 [Humalog Mix 75-25 Kwikpen (BKC)] 55 unit SC DINNER in suln.pen 03/01/19 Melatonin 10 mg PO QHS tablet 03/01/19 Mineral Oil/Petrolatum,White [Eucerin] 1 applic TOPICAL QHS jar 03/01/19 Nystatin Powder [Mycostatin Powder] 1 applic TOPICAL 0600,2200 bottle 03/01/19 Oxycodone [Oxyir] 5 mg PO Q4H PRN PRN 7 Days #42 tab 03/01/19 Polyethylene Glycol 3350 [Miralax] 17 gm PO DAILY packet 03/01/19 Senna/Docusate Sodium [Senokot-S] 2 tablet PO BID #120 tablet 03/01/19 Tizanidine HCl [Zanaflex] 4 mg PO Q6H PRN PRN #60 tablet 03/01/19 Following Prescrptions Were Given to Patient: Oxycodone [Oxyir] 5 mg PO Q4H PRN PRN 7 Days #42 tab PRN Reason: Pain Score 6-10/10 Prescription Printed Senna/Docusate Sodium [Senokot-S] 2 tablet PO BID #120 tablet Tizanidine HCl [Zanaflex] 4 mg PO Q6H PRN PRN #60 tablet PRN Reason: Spasms Primary Care Physician: Kaz Cervantes DO [Primary Care Provider] - Please follow up with your Primary Care Physician in: 1 week. Please Follow Up With: KIRILL Webb/BREONNA NINO (SURGEON) When: [phone] Disposition: Home with Home Health Minutes spent on discharge:: 35 Patient Condition:: Stable Medical Necessity - Tobacco Use Smoking Status: Never smoker Tobacco Use: Non-smoker Meaningful Use Info Meaningful Use Diagnoses (Choose all that apply): None applicable
--- NOTE | 2019-03-01 19:51 | HHNOTE_ITS ---
Home Health Note - Plan Overview of reason of hospitalization: The patient is a 68 year old Female with below past medical history hospitalized for lumbar spine surgery 02/11/[address] Garrett, admitted to TCU with debility, here for rehabilitation, strengthening, prior to discharge home with . On TCU, resident had E. Coli UTI which was treated with Cipro. Discharge home with , Home Health Care for PT/OT/ST/SN, [employer] for front wheeled walker. Problems: Patient was seen for (Last Updated 02/01/19 @ 12:49 by Romaine Voss, BREEZY-C) Debility (Acute) Spinal stenosis, lumbar region with neurogenic claudication (Acute) Lumbar spondylosis (Acute) Diabetes mellitus (Chronic) Hypertension (Chronic) Anemia (Chronic) Body mass index (BMI) 40.0-44.9, adult (Chronic) Depression (Chronic) Coronary artery disease (Chronic) Muscle spasm (Acute) Complete List of Medical Problems (Last Updated 02/01/19 @ 12:49 by Romaine Voss NP-C) Debility (Acute) Spinal stenosis, lumbar region with neurogenic claudication (Acute) Lumbar spondylosis (Acute) Diabetes mellitus (Chronic) Hypertension (Chronic) Anemia (Chronic) Body mass index (BMI) 40.0-44.9, adult (Chronic) Depression (Chronic) Coronary artery disease (Chronic) Muscle spasm (Acute) Atherosclerosis of [place] coronary artery of [place] heart without angina pectoris (Chronic) Essential hypertension (Chronic) Hyperlipidemia due to type 2 diabetes mellitus (Chronic) Stage 3 severe COPD by GOLD classification (Chronic) JILL (acute kidney injury) (Acute) Recurrent falls (Acute) Seasonal allergies (Chronic) Chronic bronchitis (Chronic) Vitamin D deficiency (Chronic) Hyperlipidemia (Chronic) Diabetic peripheral neuropathy (Chronic) Hypokalemia (Chronic) IBS (irritable bowel syndrome) (Chronic) Insomnia (Chronic) Spinal stenosis of lumbar region (Chronic) DDD (degenerative disc disease), cervical (Chronic) Disequilibrium (Chronic) Dyspnea on exertion (Chronic) GERD (gastroesophageal reflux disease) (Chronic) Morbid obesity (Chronic) DM (diabetes mellitus), type 2, uncontrolled (Chronic) Atrial septal defect (Chronic) Pulmonary emboli (Chronic) Edema (Chronic) Abnormal echocardiogram (Acute) SOB (shortness of breath) (Chronic) Asthma (Chronic) Restless leg syndrome (Chronic) Anxiety and depression (Chronic) SHANNON (obstructive sleep apnea) (Chronic) Obesity (BMI 35.0-39.9 without comorbidity) (Chronic) - Requirements and Reasons Disciplines Needed/Ordered: Half-Way, Physical Therapy, Speech Therapy Reason for Disciplines: Disease Specific Monitoring/education, Medication Management/Knowledge Deficit, Gait Training, Stair Training, Fall Prevention, Home Safety/Equipment Instruction, Balance and/or Posture Training, Transfer Training, Improvement in Communication Related To: Change in Medical Treatment Plan, Limited/Poor Endurance, Shortness of Breath with Activity, Physical Impairments, Unsteady Gait/Balance, Fall Risk Patient is unable to leave the home: Without Aid of Supportive Devices (crutches, cane, wheelchair, walker), Without the assistance of another person - Additional Disciplines Additional Disciplines Needed/Ordered: Occupational Therapy
[2019-03-01] MEDS: Losartan Potassium 100 MG Tablet PO (19:57)
[2019-03-01] MEDS: MELATONIN 10 MG TABLET PO (20:04)
[2019-03-01 21:01] LABS: Bedside Glucose 93 mg/dL (70-110)
[2019-03-02 02:31] LABS: Bedside Glucose 106 mg/dL (70-110)
[2019-03-02] MEDS: oxyCODONE 5 MG Tablet PO ×3 (04:20→22:21)
[2019-03-02] MEDS: Senna/Docusate Sodium 1 Tablet 2 TABLET PO ×2 (04:20→17:14)
[2019-03-02] MEDS: Citalopram 20 MG Tablet 40 MG PO (04:21)
[2019-03-02] MEDS: Propranolol LA 60 MG Capsule 120 MG PO (04:21)
[2019-03-02] MEDS: Pramipexole Di-HCl 0.125 MG Tablet PO ×3 (04:22→21:02)
[2019-03-02] MEDS: Ciprofloxacin 250 MG Tablet PO ×2 (04:22→17:13)
[2019-03-02] MEDS: Isosorbide Mononitrate 30 MG Tablet PO (04:22)
[2019-03-02] MEDS: Polyethylene Glycol 3350 17 GM PACKET PO (04:22)
[2019-03-02] MEDS: Furosemide 40 MG Tablet PO (04:22)
[2019-03-02] MEDS: Pramipexole Di-HCl 0.25 MG Tablet PO ×3 (04:22→21:02)
[2019-03-02] MEDS: Gabapentin 800 MG Tablet PO ×4 (04:22→21:02)
[2019-03-02] MEDS: Nystatin Powder 15gm Bottle 1 APPLIC TOPICAL ×2 (04:22→21:06)
[2019-03-02 06:26] LABS: Bedside Glucose 120 mg/dL (70-110)
[2019-03-02 06:50] VITALS: O2SAT 93
[2019-03-02] MEDS: Insulin Human 75/25 Kwickpen 42 UNIT SC (08:02)
[2019-03-02 10:56] LABS: Bedside Glucose 110 mg/dL (70-110)
[2019-03-02 12:50] VITALS: PULSE 53; RESP 18; O2SAT 93
[2019-03-02] MEDS: Acetaminophen 500 MG Tablet 1000 MG PO (13:56)
--- NOTE | 2019-03-02 14:42 | MDS.RN ---
Information for the mds was obtained from review of the clinical record, interview of resident, staff, and direct observation of resident's care.
[2019-03-02 16:00] VITALS: BP 111/61; PULSE 60; RESP 20; TEMP 36.4; O2SAT 94
[2019-03-02 16:56] LABS: Bedside Glucose 179 mg/dL (70-110)
[2019-03-02] MEDS: Insulin Human 75/25 Kwickpen 55 UNIT SC (17:36)
[2019-03-02] MEDS: Losartan Potassium 100 MG Tablet PO (21:02)
[2019-03-02] MEDS: MELATONIN 10 MG TABLET PO (21:05)
[2019-03-02 21:31] LABS: Bedside Glucose 142 mg/dL (70-110)
[2019-03-03] MEDS: Acetaminophen 500 MG Tablet 1000 MG PO ×3 (01:23→21:25)
[2019-03-03] MEDS: Gabapentin 800 MG Tablet PO ×4 (05:00→21:24)
[2019-03-03] MEDS: Pramipexole Di-HCl 0.25 MG Tablet PO ×3 (05:00→21:24)
[2019-03-03] MEDS: Furosemide 40 MG Tablet PO (05:00)
[2019-03-03] MEDS: Pramipexole Di-HCl 0.125 MG Tablet PO ×3 (05:00→21:24)
[2019-03-03] MEDS: Senna/Docusate Sodium 1 Tablet 2 TABLET PO (05:00)
[2019-03-03] MEDS: Isosorbide Mononitrate 30 MG Tablet PO (05:01)
[2019-03-03] MEDS: Citalopram 20 MG Tablet 40 MG PO (05:01)
[2019-03-03] MEDS: Polyethylene Glycol 3350 17 GM PACKET PO (05:01)
[2019-03-03] MEDS: Propranolol LA 60 MG Capsule 120 MG PO (05:01)
[2019-03-03] MEDS: Nystatin Powder 15gm Bottle 1 APPLIC TOPICAL ×2 (05:02→21:25)
[2019-03-03] MEDS: oxyCODONE 5 MG Tablet PO ×3 (05:08→21:24)
[2019-03-03 06:40] LABS: Bedside Glucose 103 mg/dL (70-110)
[2019-03-03] MEDS: Insulin Human 75/25 Kwickpen 42 UNIT SC (07:58)
[2019-03-03 10:55] LABS: Bedside Glucose 122 mg/dL (70-110)
[2019-03-03 16:00] VITALS: BP 136/65; PULSE 64; RESP 18; TEMP 36; O2SAT 90
--- NOTE | 2019-03-03 17:03 | NURSING ---
Addendum entered by Jennifer Anguiano 03/03/19 17:39: TERRENCE REMOVED AT [facility] TODAY. STERI STRIPS IN PLACE. NO DRAINAGE NOTED. F/U IN [address] ROY. CONT' LIGHT ACTIVITY, WEAR LUMBAR BRACE WHEN OOB. Original Note: PER JENNIFER IN PHARMACY, GIVE 1400 DOSE OF MIRAPEX NOW (JUST GOT BACK FROM [facility]) AND GIVE 2200 DOSE 1-2 HRS LATER THAN PRESCRIBED TIME TONIGHT.
[2019-03-03 17:14] VITALS: O2SAT 94
[2019-03-03] MEDS: Insulin Human 75/25 Kwickpen 55 UNIT SC (17:19)
[2019-03-03 17:25] LABS: Bedside Glucose 229 mg/dL (70-110)
[2019-03-03] MEDS: MELATONIN 10 MG TABLET PO (21:24)
[2019-03-03] MEDS: Losartan Potassium 100 MG Tablet PO (21:24)
[2019-03-03 21:45] LABS: Bedside Glucose 199 mg/dL (70-110)
[2019-03-04] MEDS: Gabapentin 800 MG Tablet PO ×2 (05:44→11:35)
[2019-03-04] MEDS: Pramipexole Di-HCl 0.25 MG Tablet PO (05:45)
[2019-03-04] MEDS: Metolazone 2.5 MG Tablet PO (05:45)
[2019-03-04] MEDS: Nystatin Powder 15gm Bottle 1 APPLIC TOPICAL (05:45)
[2019-03-04] MEDS: Furosemide 40 MG Tablet PO (05:45)
[2019-03-04] MEDS: Propranolol LA 60 MG Capsule 120 MG PO (05:45)
[2019-03-04] MEDS: Isosorbide Mononitrate 30 MG Tablet PO (05:45)
[2019-03-04] MEDS: Pramipexole Di-HCl 0.125 MG Tablet PO (05:45)
[2019-03-04] MEDS: Citalopram 20 MG Tablet 40 MG PO (05:45)
[2019-03-04 06:25] LABS: Bedside Glucose 144 mg/dL (70-110)
[2019-03-04] MEDS: Insulin Human 75/25 Kwickpen 42 UNIT SC (08:07)
[2019-03-04 11:05] LABS: Bedside Glucose 168 mg/dL (70-110)
[2019-03-04] MEDS: oxyCODONE 5 MG Tablet PO (11:38)
== END 2019-03-04 13:30 | disposition home health service (06) | DRG 560 ==
PROVIDERS: Admitting Provider Family Medicine Geriatric Medicine; Family Provider Family Medicine; PCP Family Medicine; Visit Provider Family Medicine Geriatric Medicine
DX: Z47.89 Encounter for other orthopedic aftercare (principal); Z68.41 Body mass index [BMI] 40.0-44.9, adult; N30.00 Acute cystitis without hematuria; Z98.1 Arthrodesis status; G47.33 Obstructive sleep apnea (adult) (pediatric); I10 Essential (primary) hypertension; Z23 Encounter for immunization; I25.10 Atherosclerotic heart disease of native coronary artery without angina pectoris; G25.81 Restless legs syndrome; F32.9 Major depressive disorder, single episode, unspecified; J44.9 Chronic obstructive pulmonary disease, unspecified; E11.69 Type 2 diabetes mellitus with other specified complication; E78.5 Hyperlipidemia, unspecified; K21.9 Gastro-esophageal reflux disease without esophagitis; E11.42 Type 2 diabetes mellitus with diabetic polyneuropathy; E66.01 Morbid (severe) obesity due to excess calories; F41.9 Anxiety disorder, unspecified; Z86.711 Personal history of pulmonary embolism; M48.062 Spinal stenosis, lumbar region with neurogenic claudication; B96.20 Unspecified Escherichia coli [E. coli] as the cause of diseases classified elsewhere
CPT/HCPCS: 36415; 80048; 81001; 82962; 85025; 87077; 87086; 87088; 87186; 92507; 92523; 94640; 97110; 97116; 97162; 97166; 97530; 97535; 97802; 90670

== ENCOUNTER → 2019-06-18 11:32 | Outpatient (CLI) | payer MEDICARE, OTHER, SELFPAY ==
[2019-04-21 06:23] VITALS: BMI 44.2
[2019-06-18 15:50] LABS: Creatinine, Serum 0.83 mg/dL (0.55-1.02); EST Glomerular Filtration Rate 73 mL/min (>60); Est Glom Filt Rate - Afr Amer 88 mL/min (>60)
== END ==
PROVIDERS: PCP Family Medicine
DX: M51.36 Other intervertebral disc degeneration, lumbar region (principal); M43.16 Spondylolisthesis, lumbar region; M48.062 Spinal stenosis, lumbar region with neurogenic claudication; Z98.1 Arthrodesis status
CPT/HCPCS: 36415; 82565

== ENCOUNTER → 2019-10-22 12:37 | Outpatient (CLI) | payer MEDICARE, OTHER, SELFPAY ==
[2019-07-22 12:51] VITALS: BMI 44.2
--- NOTE | 2019-10-22 12:44 | ART_ITS ---
Reason For Study: CLAUDICATION Procedure A bilateral lower extremity continuous wave Doppler with analog waveform analysis,segmental pressures,and ankle brachial indexes without exercise. Left Segmental Pressures Left brachial= 174mmHg. Left calf = 190mmHg. Left posterior tibial artery = 147mmHg. Left dorsalis pedis artery = 190mmHg. Left digit = 183 mmHg. The left posterior tibial artery waveforms are triphasic. The left dorsalis pedis waveforms are biphasic. Right Segmental Pressures Right brachial= 176mmHg. Right posterior tibial artery = 171mmHg. Right dorsalis pedis artery = 206mmHg. Right digit = 116 mmHg. The right posterior tibial artery waveforms are triphasic. The right dorsalis pedis waveforms are triphasic. Indices The right ankle brachial index by the dorsalis pedis post exercise is 1.17. The right ankle brachial index by the posterior tibial artery is .97. The right digital-brachial index is .66. The left dorsalis pedis index post exercise is 1.08. The left ankle brachial index by the posterior tibial artery is .84. The left digital-brachial index is 1.04. Interpretation Summary Triphasic Doppler waveforms are noted at ankle level on the right. Triphasic and biphasic Doppler waveforms are noted at ankle level on the left. Pulse-volume recordings appear satisfactory at all levels bilaterally, including low-thigh, calf, ankle, and digital levels. Resting ankle-brachial indices are normal bilaterally. The right digital-brachial index is mildly diminished. The left digital-brachial index is normal. Arterial flow appears normal at ankle level bilaterally, as well as at digital level on the left. There is evidence of mild, distal, small-vessel arterial occlusive disease at digital level on the right. Ordering Physician: RAMOS ROY Referring Physician: RAMOS ROY Performed By: KIMBERLY JONES [facility]
== END ==
PROVIDERS: PCP Family Medicine
DX: I73.9 Peripheral vascular disease, unspecified (principal); I80.293 Phlebitis and thrombophlebitis of other deep vessels of lower extremity, bilateral; M79.661 Pain in right lower leg; M79.662 Pain in left lower leg
CPT/HCPCS: 93923

== ENCOUNTER → 2020-01-20 11:44 | Outpatient (CLI) | payer MEDICARE, SELFPAY ==
[2019-12-01 13:21] VITALS: BMI 44.2
[2020-01-06 14:30] VITALS: BMI 44.4
--- NOTE | 2020-01-20 13:47 | ST.MBS ---
Modified Barium Swallow - Patient Information Study Date: 01/20/20 Study Time: 13:00 Direct Billable Minutes: 120 Total Minutes procedure & reportin Diagnosis: dysphagia, unspecified Referring Physician: Kaz Cervantes Reason for Referral: Patient reports food/drink causing her to choke or feels as if it gets stuck. Medical History: The patient is a 69 year old female with past medical history Debility, Spinal stenosis, Lumbar spondylosis, Diabetes mellitus, HTN, Anemia, Body mass index (BMI) 40.0-44.9, Depression, Coronary artery disease, Muscle spasm, Hypokalemia, Edema, Asthma, Restless leg syndrome, and SHANNON. Current Diet Ordered: Regular Textures/Thin Liquids Dentition: Upper Dentures, Lower Dentures Mental Status: WNL Respiratory Status: Oxygenating on Room Air - Study Findings Consistencies: Thin Liquid, Weinert Thick Liquid, Honey Thick Liquid, Pudding, Cookie - Penetration-Aspiration Scale Penetration-Aspiration Scale: OBJECTIVE ASSESSMENT OF SWALLOW FUNCTION (QUANTITATIVE ? PER TRIAL): PENETRATION / ASPIRATION SCALE (SMITH): 1 = does not enter airway 2 = enters airway/above vocal folds/ejected 3 = enters airway/above vocal folds/not ejected 4 = enters airway/contacts vocal folds/ejected 5 = enters airway/contacts vocal folds/not ejected 6 = enters airway/below vocal folds/ejected 7 = enters airway/below vocal folds/not ejected despite effort 8 = enters airway/below vocal folds/no effort - Penetration-Aspiration Scale Score Thin Liquid via teaspoon Result: 1= does not enter airway - poor view/difficult to confirm due to patient positioning Comment: poor view/difficult to determine due to patient positioning Thin Liquid via teaspoon Trial 2 Result: 1= does not enter airway Thin Liquid via small single sip from cup Result: 1= does not enter airway Thin Liquid via large single sip from cup Result: 2= enter airway/above vocal folds/ejected Thin Liquid via sequential sips from cup Result: 2= enter airway/above vocal folds/ejected Weinert Thick Liquid via small single sip from cup Result: 1= does not enter airway Honey Thick Liquid via small single sip from cup Result: 1= does not enter airway Pudding via teaspoon Result: 1= does not enter airway Cookie Result: 1= does not enter airway Thin Liquid via sequential sips from straw Result: 4= enters airway/contacts vocal folds/ejected - Could not definitively rule out aspiration due to patient positioning and shoulders blocking view Thin Liquid via sequential sips from straw Trial 2 Result: 2= enter airway/above vocal folds/ejected Thin Liquid via small single sip from cup Trial 2 Result: 1= does not enter airway - Oral Phase Labial Seal: No Labial Escape Tongue Control During Bolus Hold: Escape to lateral buccal cavity/floor of mouth Bolus Preparation/Mastication: Timely and efficient chewing and mashing Bolus Transport/Lingual Motion: Slowed tongue motion Oral Residue: Trace residue lining oral structures - Pharyngeal Phase Initiation of Pharyngeal Swallow: Bolus head in valleculae Soft Palate Elevation: No bolus between soft palate and pharyngeal wall Laryngeal Elevation: Partial superior movement thyroid cart/partial apprx aryt-epig petiole Anterior Hyoid Excursion: Partial anterior movement Epiglottic Movement: Partial inversion Laryngeal Vestibule Closure at Height of Swallow: Incomplete; narrow column of air/contrast in laryngeal vestibule Pharyngeal Stripping Wave: Present - complete Pharyngoesophageal Segment Opening: Parital distension and partial duration; parital obstruction of flow Tongue Base Retraction: Trace column of contrast between tongue base & post. pharyngeal wall Pharyngeal Residue: Trace residue within or on pharyngeal structures - Diagnosis/Impression Diagnosis: mild oropharyngeal dysphagia (R13.12) Impression: The patient presented with penetration of thin liquids above the vocal cords with ejection with large single sips and sequential sips via cup and via straw. The patient presented with penetration reaching the vocal cords with initial trial of thin liquid via sequential sips via straw. With all other trials, penetration and aspiration were not found. However, aspiration cannot definitively be ruled out as some views were obstructed due to shoulder positioning. No overt symptoms were demonstrated during those periods of obstructed views. Recommend regular textures and thin liquids with the following recommended aspiration precautions: small bites/sips one at a time, upright 90 degrees during PO intake and 30-60 minutes after (GERD precaution), and alternate bites with sips. - Recommendations Diet: Regular Textures, Thin Liquids Compensatory Strategies: Small Bites, Small Sips, Slow Rate, Alternate bites/solids and sips/liquids, Sitting upright, Remain sitting upright for 30 minutes after PO intake Recommend Repeat Modified Barium Swallow: TBD Need for Skilled Speech Therapy Services: No Recommended Referrals: ENT Consult Education Completed: 1. Described result of evaluation., 2. Pt understands evaluation & agrees with goals and treatment plan. - Status Active ST Patient: Active - Contact Information [facility] Speech Therapy:: Gricelda Boyd MA, CCC-WAGE CONCILIATOR [email or web address] [phone]
[2020-01-20 14:06] LABS: Anion Gap 9 (5-15); BUN 22 mg/dL (7-18); BUN/Creat Ratio 21.6 RATIO (10-20); Calcium,Total 9.1 mg/dL (8.5-10.1); Chloride 104 mmol/L (98-107); Creatinine, Serum 1.02 mg/dL (0.55-1.02); EST Glomerular Filtration Rate 57 mL/min (>60); Est Glom Filt Rate - Afr Amer 69 mL/min (>60); Glucose 213 mg/dL (74-106); Potassium 3.4 mmol/L (3.5-5.1); Sodium Level 140 mmol/L (136-145)
== END ==
PROVIDERS: Internal Medicine Cardiovascular Disease; PCP Family Medicine; Referring Provider Family Medicine; Visit Provider Family Medicine
DX: R05 Cough (principal)
CPT/HCPCS: 36415; 74230; 80048; 92611

== ENCOUNTER 2020-02-15 14:18 | Outpatient (RCR) | payer MEDICARE, SELFPAY ==
[2020-01-06 14:30] VITALS: BMI 44.4
--- NOTE | 2020-02-15 16:03 | HP.OTEVAL ---
Patient's Visit Information ANN PEARCE is a 69 year old F, referred to Occupational Therapy by Dr. Kaz Cervantes DO, with a diagnosis of bilateral LE edema. Date of Evaluation: 02/15/20 Occupational Therapist: Fela Blood, COURTNEYR/Susie, CHT - Subjective This 69 year old female was seen for OT eval with dx of LE edema. pt states her left LE has been swelling for about three months. pt states she has used compression socks in the past she go from [employer]. pts states that she had swelling following 1st back sx in 2016. pt states she continues to have swelling. pt sleeps in a bed and states swelling does go down. pt would like to know what she can do to make swelling go away. - Pain bilateral LE 4 Pain Intensity Range: 3, 6 - Lymphedema (Circumferential Measure) Mid-foot: right 23cm left 23cm Ankle: right 29cm left 30cm Lower calf: right 29cm left 30.5cm Largest calf: right 46cm left 48cm Below knee: right 40cm left 39cm - Lower Limb Functional Index Lower Extremity Functional Score: 12 - Goals Demonstrate a 20% reduction in edema by d/c: Yes Demonstrate adequate knowledge of self-massage by 2nd week: Yes Demonstrate adequate knowledge skin care/prec by 2nd week: Yes Demonstrate adequate knowledge therapeutic exercises by d/c: Yes Select approp compression garment w/donning/care/wear by d/c: Yes Voice need to replace compression garment every 4-6mo by dc: Yes - Rehabilitation General Assessment: pt presents with BLE swelling and would benefit from skilled OT services 1-2 visits to ed, pt on life long mtg of LE edema as swelling in her legs limits her mobility. Today therapist ed. pt on lymph system, lymph exercises, skin care and need of comprression garment (sock or compression alternative velcro closure)20-30 mmHg. pt and spouse demo understanding and agree to POC. pt will pursure buy compression socks and initiate skin care and lymph stim ex. pt to call or return with question on mtg. spouse supportive and demo understanding as well. Rehabilitation Potential: Questionable - Anticipated Interventions Manual Lymph Drainage, Education re Life-long lymphedema Management, Education re Skin Care and Precautions, Education re Self Massage Techniques, Education re Correct Donning Tech,Care&Wearing Sched Comp Garments, Home Program - Visit Plan Frequency: Every Other Week Duration: 2 Weeks TEXT: Thank you for the opportunity to evaluate your patient. For Medicare and Medicare HMO plans, please review the plan of care and approve it. It will need to be FAXED BACK to us at [phone] for Medicare purposes. Please let me know if there are questions or concerns regarding this plan of care. Physician Signature: Date:
== END 2020-02-15 19:00 | disposition home or self-care (01) ==
LOC: OT 14:18
PROVIDERS: PCP Family Medicine; Referring Provider Family Medicine; Visit Provider Family Medicine
DX: R60.0 Localized edema (principal)
CPT/HCPCS: 97166

== ENCOUNTER → 2020-04-05 09:53 | Outpatient (CLI) | payer MEDICARE, SELFPAY ==
--- NOTE | 2020-04-05 10:00 | RAD_ITS ---
STUDY: X-RAY - ESOPHAGUS (BARIUM SWALLOW) WITH FLUOROSCOPY REASON FOR EXAM: Female, 70 years old. DYSPHAGIA -- 12 FLUORO IMAGES, 21.21mGy, 31 FLUORO SEC TECHNIQUE: 12 view(s) of the esophagus were obtained following swallowing of barium. FLUOROSCOPY TIME (if supplied): (0:31) minutes/seconds COMPARISON: None. FINDINGS: There is no demonstrated esophageal foreign body. There is no demonstrated stricture or mucosal abnormality. Normal gastroesophageal junction, without a demonstrated hiatal hernia. The patient ingested a 12 mm tablet of barium without any difficulty. Normal visualized aortic arch and descending thoracic aorta. Normal visualized pulmonary parenchyma. Prior fusion of the lumbar spine. RAD/Esophagus Dual Contrast IMPRESSION: Normal plain film x-ray examination (barium swallow) of the esophagus. Electronically Signed: [place], at 14:34 EST , Service support ,
== END ==
PROVIDERS: PCP Family Medicine; Referring Provider Internal Medicine Gastroenterology; Visit Provider Internal Medicine Gastroenterology
DX: R13.10 Dysphagia, unspecified (principal)
CPT/HCPCS: 74221

== ENCOUNTER 2020-04-11 16:01 | Inpatient (IN) | payer MEDICARE, SELFPAY ==
[2020-04-11] VITALS (8 sets, daily range): BP systolic 107–188; BP diastolic 55–109; PULSE 81–95; RESP 16–24; TEMP 36.9–37.6; O2SAT 91–97; BMI 41.5; BMI 41.1
--- NOTE | 2020-04-11 16:18 | EKG12_ITS ---
Test Reason : Blood Pressure : / mmHG Vent. Rate : 085 BPM Atrial Rate : 085 BPM P-R Int : 190 ms QRS Dur : 084 ms QT Int : 422 ms P-R-T Axes : 046 -12 -12 degrees QTc Int : 502 ms Normal sinus rhythm Nonspecific ST and T wave abnormality Abnormal ECG Confirmed by THERESA MALIK, TUCKER ([id number]), make up editor EVELYN RADFORD ([id number]) on 04/17/2020 12:50:37 PM Referred By: JOCELIN Confirmed By:TUCKER CARDENAS MD
--- NOTE | 2020-04-11 16:22 | ED.VIS.GEN ---
History of Present Illness Chief Complaint: General Illness Narrative: This patient is a 70-year-old female who presents with a viral illness. About 1 week ago she developed rhinorrhea cough shortness of breath and diarrhea. She spoke to her primary care provider who noted this is most likely viral syndrome. Since that time she has had worsening weakness. She states she has had difficulty standing. She had spoken to a friend because she needed a bath but was unable to do this on her own. EMS was contacted and the patient was brought here. Patient denies any chest pain. She has some chronic leg edema which she uses compression stockings but this is at baseline. No history of DVT or pulmonary embolism. No nausea or vomiting. Past Medical History - Allergies and Home Meds Allergies/Adverse Reactions: Allergies rivaroxaban [From Xarelto] Allergy (Intermediate, Verified 01/06/20 14:30) Itching latex Allergy (Verified 01/06/20 14:30) Itching pravastatin Allergy (Verified 01/06/20 14:30) Unknown codeine Adverse Reaction (Severe, Verified 01/06/20 14:30) Itching zolpidem [From Ambien] Adverse Reaction (Severe, Verified 01/06/20 14:30) Sleep walking/talking environmental Allergy (Uncoded 01/06/20 14:30) Other Primary Care Physician: Kaz Cervantes DO [Primary Care Provider] - Past Medical History: - - Diabetes, hypertension Surgical History: appendectomy, cataract, cholecystectomy, herniorrhaphy - unbilical, - - BL carpal tunnel release - Family History Maternal Family History: Family History (Last Reviewed 01/06/20 @ 14:38 by Fela Coburn) Father Heart disease Hypertension CAD (coronary artery disease) Arthritis Mother Hypertension Asthma Diabetes Heart disease COPD (chronic obstructive pulmonary disease) Family History: Reports: Diabetes, Heart Disease Paternal Family History: Family History (Last Reviewed 01/06/20 @ 14:38 by Fela Coburn) Father Heart disease Hypertension CAD (coronary artery disease) Arthritis Mother Hypertension Asthma Diabetes Heart disease COPD (chronic obstructive pulmonary disease) Family History: Reports: Diabetes, Heart Disease Review of Systems All systems negative except as indicated General: Denies: Fever Eyes: Denies: Visual changes - bilaterally ENT: Denies: Bilateral ear pain Cardiovascular: Denies: Chest pain Respiratory: Reports: Dyspnea, Cough. Denies: Sputum Gastrointestinal: Reports: Diarrhea. Denies: Abdominal pain, Nausea, Vomiting Musculoskeletal: Reports: Swelling. Denies: Extremity Pain Skin: Denies: Rash Neurological: Denies: Headache Hematologic: Denies: Easy bruising Allergy: Denies: Uticaria Physical Exam Vital Signs/Narrative: Vital Signs Temp Pulse Resp BP Pulse Ox 04/11/20 16:01 98.8 F 95 16 187/78 H 91 Inital Vital Signs reviewed: Yes General: Well nourished Head: Normocephalic Eyes: EOMI ENT: Moist mucous membranes Neck: Supple Cardiovascular: Regular rate, Regular rhythm Respiratory: - - No respiratory distress, diminished air exchange, no rales or wheezing. Negative for: Rales, Wheezing Abdomen: Soft, Nontender, Nondistended Extremities: Nontender, Edema Skin: Normal color Neurological: Alert Psychological: Normal affect Diagnostic/Tx/Re-eval Impressions Chest CTA 04/11/20 17:24 IMPRESSION: 1. Small subpleural infiltrates are present in the periphery of the bilateral upper lobes, slightly more prominent on the left than right. Small developing islands of infiltrates are also seen in the bilateral lower lobes in the subpleural/peripheral regions. No pleural effusion. 2. No demonstrated pulmonary embolism or arterial dissection. Electronically Signed: David Josue MD at 18:59 EST , Service support , Chest X-Ray 04/11/20 17:26 IMPRESSION: Degenerative changes, as described above. No demonstrated acute cardiopulmonary process. Electronically Signed: David Josue MD at 17:48 EST , Service support , 04/11/20 17:24 CTA Chest W/WO Contrast [CT] Stat 04/11/20 17:26 Chest 1 View (Portable) [RAD] Stat 04/11/20 16:35 Mucosa - Nose SARS-CoV-2 Antigen (Rapid) - Final Laboratory Results 04/11/20 04/11/20 04/11/20 16:40 16:40 16:40 WBC 6.5 RBC 4.64 Hgb 13.9 Hct 41.5 MCV 89.4 MCH 30.0 MCHC 33.5 RDW Std Deviation 41.1 RDW Coeff of Mitzy 12.5 Plt Count 263 MPV 9.6 Immature Gran % (Auto) 0.600 Neut % (Auto) 72.9 H Lymph % (Auto) 16.0 L [place] % (Auto) 8.3 Eos % (Auto) 1.7 Baso % (Auto) 0.5 Absolute Neuts (auto) 4.7 Absolute Lymphs (auto) 1.04 Nucleated RBC % 0 PT 13.1 INR 1.0 D-Dimer Quant (PE/DVT) 1.14 H* Sodium 139 Potassium 2.7 L* Chloride 100 Carbon Dioxide 30.0 Anion Gap 9 BUN 15 Creatinine 0.99 Estim Creat Clear Calc 46.31 Est GFR (MDRD) Af Amer 72 Est GFR (MDRD) Non-Af 59 L BUN/Creatinine Ratio 15.2 Glucose 211 H Calcium 8.6 Total Bilirubin 0.80 Direct Bilirubin 0.22 AST 23 ALT 26 Alkaline Phosphatase 57 Troponin I 0.018 Total Protein 7.5 Albumin 3.4 Globulin 4.1 - Medical Decision Making Initial pulse oximetry was 91% on room air. During my history and examination the patient desaturated to 88% on room air. She was placed on oxygen via nasal cannula. Labs notable for hypokalemia with a potassium of 2.7. This was replaced orally and IV. One-view portable chest x-ray was obtained. On my interpretation the shows no acute process, radiology agrees. D-dimer returned at greater than 1. Patient was sent for CTA of the chest. This shows no evidence of pulmonary embolism but does show developing bilateral infiltrates. Given patient's clinical presentation with cough hypoxia fever diarrhea loss of sense of taste this is highly suspicious for COVID-19. Antigen test is negative but this does have a significant false negative rate. PCR pending at the time of this dictation. Given high clinical suspicion I did cover with IV Decadron and patient was also given IV Levaquin. Patient discussed with the hospitalist and admitted. ED Disposition - Plan for ED Patient: Disposition: Acute Care Hospital [facility] Diagnosis: Bilateral pneumonia, COVID-19 determined by clinical diagnostic criteria, Hypoxia, Hypokalemia Referrals: Kaz Cervantes DO [Primary Care Provider] -
[2020-04-11] MEDS: Ipratropium/Albuterol Sulfate 3 ML AMPUL.NEB INHALATION (16:35)
[2020-04-11 16:59] LABS: Absolute Lymphocyte Count 1.04 X10^3/uL (0.83-4.51); Absolute Neutrophil Count 4.7 X10^3/uL (2.0-7.7); Basophil# 0.03 X10^3/uL; Basophil% 0.5 % (0-1); Eosinophil# 0.11 X10^3/uL; Eosinophils% 1.7 % (0-5); Hematocrit 41.5 % (37-47); Hemoglobin 13.9 g/dL (12.0-15.0); Lymphocyte # 1.04 X10^3/ul (4.0); Mean Corp Hgb Conc 33.5 g/dL (32-36); Mean Corpuscular Volume 89.4 fL (81-99); Mean Platelet Vol. 9.6 fl (6.2-12.0); Monocyte# 0.54 X10^3/uL; Monocyte% 8.3 % (0-10); NRBC Flagged by Analyzer 0 % (0-5); Neutrophil # 4.72 X10^3/uL (2.7-7.7); Neutrophil % 72.9 % (47-70); Platelet Count 263 K/mm3 (150-450); RBC Distribution Width CV 12.5 % (11.6-14.6); RBC Distribution Width SD 41.1 fl (35.1-43.9); Red Blood Count 4.64 M/mm3 (4.2-5.4); White Blood Count 6.5 K/mm3 (4.4-11.0)
[2020-04-11 17:18] LABS: Prothrombin Time (Protime)PT. 13.1 SECONDS (11.7-14.9)
[2020-04-11 17:23] LABS: D-Dimer Quantitative (DVT/PE) 1.14 FEU/ug/m (0.27-0.49)
--- NOTE | 2020-04-11 17:24 | CT_ITS ---
STUDY: CTA CHEST REASON FOR EXAM: Female, 70 years old. SOB, cough, increased weakness X 1 WEEK, ?COVID -- HX:DIABETES,HTN,COPD,ASTHMA,PE,GERD RADIATION DOSAGE (If Supplied By Facility): CTDIvol = ( 13.85 ) mGy, DLP = ( 490.68 ) mGycm TECHNIQUE: The examination was performed with the intravenous administration of IV 100mL [id number]. Post-processing of the angiographic images was performed, with multiplanar reformation and 3D reconstruction. Individualized dose optimization techniques were used for this CT. Respiratory motion artifact is present. COMPARISON: Chest CTA dated October 08, 2016. Chest x-ray dated April 11, 2020 FINDINGS: Normal enhancement of the main pulmonary artery and right and left pulmonary arteries. Normal enhancement of the bilateral peripheral pulmonary arteries. There is no demonstrated pulmonary embolism. There is atherosclerotic calcification of the aortic arch with tortuosity. There is no demonstrated aortic dissection. Normal heart size and pericardium. Normal mediastinum. Normal hilar regions. Normal visualized trachea and bronchi. The lungs are well expanded. Small subpleural infiltrates are present in the periphery of the bilateral upper lobes, slightly more prominent on the left than right. Small developing islands of infiltrates are also seen in the bilateral lower lobes in the subpleural/peripheral regions. No pleural effusion. Normal chest wall structures. There are degenerative changes of thoracic spine. Normal visualized upper abdomen. CT/CTA Chest W/WO Contrast IMPRESSION: 1. Small subpleural infiltrates are present in the periphery of the bilateral upper lobes, slightly more prominent on the left than right. Small developing islands of infiltrates are also seen in the bilateral lower lobes in the subpleural/peripheral regions. No pleural effusion. 2. No demonstrated pulmonary embolism or arterial dissection. Electronically Signed: David Josue MD at 18:59 EST , Service support ,
--- NOTE | 2020-04-11 17:26 | RAD_ITS ---
STUDY: X-RAY CHEST REASON FOR EXAM: Female, 70 years old. NONPRODUCTIVE COUGH, DIARRHEA, NO TASTE, CHILLS, BODY ACHES. TECHNIQUE: Single AP portable view of the chest. COMPARISON: May 12, 2017 FINDINGS: The lungs are clear and expanded. There is no demonstrated pleural abnormality. Normal size heart. Normal mediastinum and gigi. Normal visualized pulmonary arteries. There is atherosclerotic tortuosity of the aortic arch and descending thoracic aorta. There are diffuse degenerative changes of the visualized thoracic spine. Normal visualized ribs, clavicles, and shoulders. There is no demonstrated abnormality of the visualized soft tissue structures of the upper abdomen. RAD/Chest 1 View (Portable) IMPRESSION: Degenerative changes, as described above. No demonstrated acute cardiopulmonary process. Electronically Signed: David Josue MD at 17:48 EST , Service support ,
[2020-04-11 17:43] LABS: AST(SGOT) 23 U/L (15-37); Alanine Aminotransfer ALT/SGPT 26 U/L (13-56); Albumin, Serum 3.4 g/dL (3.2-5.0); Alkaline Phosphatase 57 U/L (45-117); Anion Gap 9 (5-15); BUN 15 mg/dL (7-18); BUN/Creat Ratio 15.2 RATIO (10-20); Bilirubin, Direct 0.22 mg/dL (0.00-0.30); Calcium,Total 8.6 mg/dL (8.5-10.1); Chloride 100 mmol/L (98-107); Creatinine, Serum 0.99 mg/dL (0.55-1.02); EST Glomerular Filtration Rate 59 mL/min (>60); Est Glom Filt Rate - Afr Amer 72 mL/min (>60); Estimated Creatinine Clearance 46.31 ml/min; Globulin 4.1 g/dL (2.2-4.2); Glucose 211 mg/dL (74-106); Potassium 2.7 mmol/L (3.5-5.1); Protein, Total 7.5 g/dL (6.4-8.2); Sodium Level 139 mmol/L (136-145)
--- NOTE | 2020-04-11 17:44 | ED.RN ---
LAB CALLED CRITICAL OF POTASSIUM OF 2.7. DR FROST
[2020-04-11] MEDS: 0.9% Normal Saline 1,000 ML 1000 ML IV (17:53)
[2020-04-11] MEDS: Potassium Chloride 10mEq/100mL 10 MEQ/100 ML IV.SOLN. 100 MEQ IV BOLUS ×4 (18:39→23:56)
--- NOTE | 2020-04-11 19:35 | PCM.HP.STD ---
Problem List (1) Bilateral pneumonia Status: Acute (2) Hypoxia Status: Acute (3) Debility Status: Acute (4) Spinal stenosis, lumbar region with neurogenic claudication Status: Chronic (5) Lumbar spondylosis Status: Chronic (6) Diabetes mellitus Status: Chronic (7) Hypertension Status: Chronic (8) Anemia Status: Chronic (9) Body mass index (BMI) 40.0-44.9, adult Status: Chronic (10) Depression Status: Chronic (11) Coronary artery disease Status: Chronic (12) Muscle spasm Status: Chronic (13) Atherosclerosis of [place] coronary artery of [place] heart without angina pectoris Status: Chronic (14) Essential hypertension Status: Chronic (15) Hyperlipidemia due to type 2 diabetes mellitus Status: Chronic (16) Stage 3 severe COPD by GOLD classification Status: Chronic Comment: FEV1 42% of predicted (17) Recurrent falls Status: Chronic (18) Seasonal allergies Status: Chronic Qualifiers: Allergic rhinitis trigger: pollen Qualified Code(s): J30.1 - Allergic rhinitis due to pollen (19) Chronic bronchitis Status: Chronic Qualifiers: Chronic bronchitis type: unspecified Qualified Code(s): J42 - Unspecified chronic bronchitis (20) Vitamin D deficiency Status: Chronic (21) Hyperlipidemia Status: Chronic Qualifiers: Hyperlipidemia type: unspecified Qualified Code(s): E78.5 - Hyperlipidemia, unspecified (22) Diabetic peripheral neuropathy Status: Chronic (23) Hypokalemia Status: Chronic (24) IBS (irritable bowel syndrome) Status: Chronic (25) Insomnia Status: Chronic (26) Spinal stenosis of lumbar region Status: Chronic Qualifiers: Neurogenic claudication status: unspecified Qualified Code(s): M48.061 - Spinal stenosis, lumbar region without neurogenic claudication (27) DDD (degenerative disc disease), cervical Status: Chronic (28) Disequilibrium Status: Chronic (29) Dyspnea on exertion Status: Chronic (30) GERD (gastroesophageal reflux disease) Status: Chronic Qualifiers: Esophagitis presence: esophagitis presence not specified Qualified Code(s): K21.9 - Gastro-esophageal reflux disease without esophagitis (31) Morbid obesity Status: Chronic (32) DM (diabetes mellitus), type 2, uncontrolled Status: Chronic Comment: . Is now feeling better and BG more controlled. Understands checking consistently and managing BG on daily basis. Pain management also creates higher BG; however this is needed for patient quality of life. (33) Atrial septal defect Status: Chronic (34) Pulmonary emboli Status: Chronic Qualifiers: Pulmonary embolism type: other Chronicity: chronic Acute cor pulmonale presence: without acute cor pulmonale Qualified Code(s): I27.82 - Chronic pulmonary embolism (35) Edema Status: Chronic Qualifiers: (36) Abnormal echocardiogram Status: Chronic (37) SOB (shortness of breath) Status: Chronic (38) Asthma Status: Chronic Qualifiers: (39) Restless leg syndrome Status: Chronic (40) Anxiety and depression Status: Chronic (41) SHANNON (obstructive sleep apnea) Status: Chronic Comment: CPAP 16 cm of water (42) Obesity (BMI 35.0-39.9 without comorbidity) Status: Chronic Comment: Has medical issues as well as pain which prevent patient from activity and exercise. Discussed as usual her caloric intake as well as water aerobics and armchair exercises. History of Present Illness Date of Admission: 04/11/20 Chief Complaint: Weakness The patient is a 70 year old F with a significant history of atrial septal defect; diabetes mellitus; and essential hypertension who presents emergency department with 1 week history of persistent weakness. Because of weakness patient called EMS who brought her to the hospital. Associated with her symptoms is malaise; chills; loss of taste sensation; lost of smell sensation; and anorexia. At emergency department her oxygen saturation was found to be low and she required supplemental oxygenation. Her initial rapid Covid test was negative. A PCR Covid was ordered. Chest x-ray was unremarkable. Chest CTA showed bilateral infiltrates in the upper lobes. Patient was given Decadron and Levaquin at the emergency department. Past Medical History Past Medical History (Chronic Problems): Chronic Problems (Last Reviewed 04/11/20 @ 19:[address] Srinivas Church MD) Spinal stenosis, lumbar region with neurogenic claudication (Chronic) Lumbar spondylosis (Chronic) Diabetes mellitus (Chronic) Hypertension (Chronic) Anemia (Chronic) Body mass index (BMI) 40.0-44.9, adult (Chronic) Depression (Chronic) Coronary artery disease (Chronic) Muscle spasm (Chronic) Atherosclerosis of [place] coronary artery of [place] heart without angina pectoris (Chronic) Essential hypertension (Chronic) Hyperlipidemia due to type 2 diabetes mellitus (Chronic) Stage 3 severe COPD by GOLD classification (Chronic) FEV1 42% of predicted Recurrent falls (Chronic) Seasonal allergies (Chronic) Chronic bronchitis (Chronic) Vitamin D deficiency (Chronic) Hyperlipidemia (Chronic) Diabetic peripheral neuropathy (Chronic) Hypokalemia (Chronic) IBS (irritable bowel syndrome) (Chronic) Insomnia (Chronic) Spinal stenosis of lumbar region (Chronic) DDD (degenerative disc disease), cervical (Chronic) Disequilibrium (Chronic) Dyspnea on exertion (Chronic) GERD (gastroesophageal reflux disease) (Chronic) Morbid obesity (Chronic) DM (diabetes mellitus), type 2, uncontrolled (Chronic) . Is now feeling better and BG more controlled. Understands checking consistently and managing BG on daily basis. Pain management also creates higher BG; however this is needed for patient quality of life. Atrial septal defect (Chronic) Pulmonary emboli (Chronic) Edema (Chronic) Abnormal echocardiogram (Chronic) SOB (shortness of breath) (Chronic) Asthma (Chronic) Restless leg syndrome (Chronic) Anxiety and depression (Chronic) SHANNON (obstructive sleep apnea) (Chronic) CPAP 16 cm of water Obesity (BMI 35.0-39.9 without comorbidity) (Chronic) Has medical issues as well as pain which prevent patient from activity and exercise. Discussed as usual her caloric intake as well as water aerobics and armchair exercises. Medical History: Medical History (Last Reviewed 04/11/20 @ 22:[address] Srinivas Church MD) Atherosclerosis of [place] coronary artery of [place] heart without angina pectoris (Chronic) I25.10 Essential hypertension (Chronic) I10 JILL (acute kidney injury) (Inactive) N17.9 Recurrent falls (Chronic) R29.6 Seasonal allergies (Chronic) J30.2 Chronic bronchitis (Chronic) J42 Vitamin D deficiency (Chronic) E55.9 Hyperlipidemia (Chronic) E78.5 Diabetic peripheral neuropathy (Chronic) E11.42 Hypokalemia (Chronic) E87.6 IBS (irritable bowel syndrome) (Chronic) K58.9 Insomnia (Chronic) G47.00 Spinal stenosis of lumbar region (Chronic) M48.061 DDD (degenerative disc disease), cervical (Chronic) M50.30 Disequilibrium (Chronic) R42 Dyspnea on exertion (Chronic) R06.09 GERD (gastroesophageal reflux disease) (Chronic) K21.9 Morbid obesity (Chronic) E66.01 DM (diabetes mellitus), type 2, uncontrolled (Chronic) E11.65 . Is now feeling better and BG more controlled. Understands checking consistently and managing BG on daily basis. Pain management also creates higher BG; however this is needed for patient quality of life. Atrial septal defect (Chronic) Q21.1 Pulmonary emboli (Chronic) I26.99 Edema (Chronic) R60.9 Abnormal echocardiogram (Chronic) R93.1 SOB (shortness of breath) (Chronic) R06.02 Asthma (Chronic) J45.909 Restless leg syndrome (Chronic) Anxiety and depression (Chronic) SHANNON (obstructive sleep apnea) (Chronic) G47.33 CPAP 16 cm of water Obesity (BMI 35.0-39.9 without comorbidity) (Chronic) E66.9 Has medical issues as well as pain which prevent patient from activity and exercise. Discussed as usual her caloric intake as well as water aerobics and armchair exercises. Carpal tunnel syndrome (Resolved) G56.00 Cystitis, acute (Resolved) N30.00 Dehydration (Resolved) E86.0 Dehydration with hyponatremia (Resolved) E87.1 Gastroenteritis (Resolved) K52.9 History of echocardiogram Onset Date: ~01/2017 Z92.89 EF 65%; +agitated saline contrast for interatrial shunt History of nuclear stress test Onset Date: ~10/2016 Z92.89 Negative Sepsis (Resolved) A41.9 DM (diabetes mellitus), type 2, uncontrolled (Inactive) E11.65 Dx : 2005 Last exacerbation : DKA : never Hypoglycemic episode : never ER visit : never Hypertension (Inactive) I10 Allergies rivaroxaban [From Xarelto] Allergy (Intermediate, Verified 01/06/20 14:30) Itching latex Allergy (Verified 01/06/20 14:30) Itching pravastatin Allergy (Verified 01/06/20 14:30) Unknown codeine Adverse Reaction (Severe, Verified 01/06/20 14:30) Itching zolpidem [From Ambien] Adverse Reaction (Severe, Verified 01/06/20 14:30) Sleep walking/talking environmental Allergy (Uncoded 01/06/20 14:30) Other Home Medications: Ambulatory Orders Medication Instructions Recorded Ropinirole HCl [Requip] 4 mg PO BID 02/23/13 losartan 100 mg tablet 100 mg PO QHS 02/28/17 propranolol 120 mg capsule,24 120 mg PO QDAY 02/28/17 hr,extended release Acetaminophen [Tylenol] 1,000 mg PO Q6H PRN tab 03/01/19 albuterol sulfate 90 mcg/actuation 2 puff INHALATION Q6H PRN #18 g 07/22/19 aerosol inhaler isosorbide mononitrate 30 mg 30 mg PO DAILY #90 tab 10/11/19 tablet,extended release 24 hr albuterol sulfate 2.5 mg INHALATION Q4H PRN #180 ml 12/01/19 furosemide 40 mg tablet 40 mg PO DAILY PRN tab 01/06/20 gabapentin 800 mg tablet 800 mg PO BID tab 01/06/20 hydrochlorothiazide 25 mg tablet 25 mg PO DAILY #90 tab 01/06/20 insulin lispro protamine-lispro 60 unit SUBCUT BREAKFAST ml 01/06/20 100 unit/mL (75-25) subcutaneous pen insulin lispro protamine-lispro 85 unit SUBCUT DINNER ml 01/06/20 100 unit/mL (75-25) subcutaneous pen melatonin 10 mg sublingual tablet 10 mg PO QHS PRN tab 01/06/20 potassium chloride 20 mEq 40 meq PO QHS tab 01/20/20 tablet,extended release(part/cryst) Surgical History: Surgical History (Last Reviewed 04/11/20 @ 22:[address] Srinivas Church MD) Bilateral carpal tunnel syndrome G56.03 History of appendectomy Z98.890, Z90.49 History of back surgery Onset Date: ~2018 Z98.890 History of carpal tunnel surgery of left wrist Z98.890 History of cataract surgery Z98.49 History of cholecystectomy Onset Date: ~09/2011 Z98.890, Z90.49 History of laminectomy Onset Date: ~07/2015 Z98.890 L4-L5 Decompression L3-L4 History of laparoscopic cholecystectomy Z90.49 History of umbilical hernia repair Onset Date: ~08/2012 Z98.890, Z87.19 sciatic nerve cauterization Surgical History: appendectomy, cataract, cholecystectomy, herniorrhaphy - unbilical, - - BL carpal tunnel release Psychiatric History: Anxiety, Depression NURSES' AIDE 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 NURSES' AIDE history Smoking Status: Never smoker - *Family History Maternal Family History: Family History (Last Reviewed 04/11/20 @ 19:[address] Srinivas Church MD) Father Heart disease Hypertension CAD (coronary artery disease) Arthritis Mother Hypertension Asthma Diabetes Heart disease COPD (chronic obstructive pulmonary disease) History Items: Diabetes, Heart Disease Paternal Family History: Family History (Last Reviewed 04/11/20 @ 19:[address] Srinivas Church MD) Father Heart disease Hypertension CAD (coronary artery disease) Arthritis Mother Hypertension Asthma Diabetes Heart disease COPD (chronic obstructive pulmonary disease) History Items: Diabetes, Heart Disease Review of Systems Constitutional: Reports: Chills, Malaise, Weakness, Fatigue. Denies: Fever, Weight Change HEENT: Denies: Head Aches, Sinus Congestion, Sinus Drainage Cardiovascular: Denies: Chest Pain, Palpitations Respiratory: Reports: Cough, Shortness of Breath. Denies: Sputum production Gastrointestinal: Reports: Diarrhea. Denies: Abdominal Pain, Nausea, Vomiting Genitourinary: Denies: Dysuria Musculoskeletal: Denies: Joint Pain, Joint Tenderness Skin: Denies: Rash, Wounds Neurological: Denies: Numbness, Tingling, Focal weakness Psychiatric: Denies: Anxiety, Depression, Homicidal Ideations, Suicidal Ideations Hematologic/ Lymphatic: Denies: Easy Bruising, Easy Bleeding VTE Information - Inpt Only VTE Present on Admission: No VTE Mechan Device Prophylaxis: None VTE Pharm Prophylaxis ordered?: Yes Patient Problems: Active and Suspected Problems (Last Reviewed 04/11/20 @ 19:[address] Srinivas Church MD) Bilateral pneumonia (Acute) Hypoxia (Acute) COVID-19 determined by clinical diagnostic criteria (Acute) Debility (Acute) - Physical Exam Vitals/I&O's: Vital Signs Temp Pulse Resp BP Pulse Ox 98.8 F 89 16 173/83 H 96 04/11/20 16:01 04/11/20 18:38 04/11/20 18:38 04/11/20 18:38 04/11/20 18:38 Oxygen Flow Rate (L/min) 3 Oxygen Delivery Method Room Air Weight: 109.9 kg Body Mass Index (BMI) 41.5 Finger Stick Blood Glucose 225 General: Alert, Oriented x3, Cooperative HEENT: Atraumatic, PERRLA, EOMI, Normocephalic Neck: Supple, No JVD, Negative Carotid Bruits Lungs: Clear to auscultation, Normal air movement Cardiovascular: Regular rate, Normal S1, Normal S2, No murmurs Abdomen: Bowel Sounds Present, Soft, Non Tender Extremities: No edema, Capillary Refill Less than 3 Seconds Skin: No rashes, No breakdown Musculoskeletal: No Tenderness to Palpation of Joints or Extremities Neurological: Cranial nerves II-XII grossly intact Psych/Mental Status: Normal Affect, Appropriate Microbiology Past 72 Hours 04/11/20 16:35 Mucosa - Nose SARS-CoV-2 Antigen (Rapid) - Final Laboratory Results 04/11/20 16:40: WBC 6.5, RBC 4.64, Hgb 13.9, Hct 41.5, MCV 89.4, MCH 30.0, MCHC 33.5, RDW Std Deviation 41.1, RDW Coeff of Mitzy 12.5, Plt Count 263, MPV 9.6, Immature Gran % (Auto) 0.600, Neut % (Auto) 72.9 H, Lymph % (Auto) 16.0 L, [place] % (Auto) 8.3, Eos % (Auto) 1.7, Baso % (Auto) 0.5, Absolute Neuts (auto) 4.7, Absolute Lymphs (auto) 1.04, Nucleated RBC % 0 04/11/20 16:40: PT 13.1, INR 1.0, D-Dimer Quant (PE/DVT) 1.14 H* 04/11/20 16:40: Sodium 139, Potassium 2.7 L*, Chloride 100, Carbon Dioxide 30.0, Anion Gap 9, BUN 15, Creatinine 0.99, Estim Creat Clear Calc 46.31, Est GFR (MDRD) Af Amer 72, Est GFR (MDRD) Non-Af 59 L, BUN/Creatinine Ratio 15.2, Glucose 211 H, Calcium 8.6, Total Bilirubin 0.80, Direct Bilirubin 0.22, AST 23, ALT 26, Alkaline Phosphatase 57, Troponin I 0.018, Total Protein 7.5, Albumin 3.4, Globulin 4.1 04/11/20 18:20: COVID-19 (SKY) Pending Current Medications Potassium Chloride () 10 meq in 100 mls @ 100 mls/hr IV BOLUS Q1H MAGNOLIA Stop: 04/11/20 21:59 Last Admin: 04/11/20 18:39 Dose: 100 mls/hr Documented by: Levofloxacin (Levaquin Iv) 500 mg in 100 mls @ 100 mls/hr IV X1 ONE Stop: 04/11/20 20:06 Assessment/Plan All Active Problems (Last Reviewed 04/11/20 @ 19:[address] Srinivas Church MD) Bilateral pneumonia (Acute) Hypoxia (Acute) COVID-19 determined by clinical diagnostic criteria (Acute) Debility (Acute) Carpal tunnel syndrome (Resolved) Cystitis, acute (Resolved) Dehydration (Resolved) Dehydration with hyponatremia (Resolved) Gastroenteritis (Resolved) History of abdominal pain (Resolved) Sepsis (Resolved) The patient is a 70 year old F with a significant history of atrial septal defect; diabetes mellitus; and essential hypertension who presents to the emergency department with 1 week history of persistent weakness; SOB; malaise; chills; loss of taste sensation; lost of smell sensation; and anorexia; CTA showed bilateral infiltrates in the upper lobes but with an initial negative rapid Covid antigen Acute hypoxemic respiratory insufficiency secondary to bilateral pneumonia Patient required supplemental oxygenation by nasal cannula. Continue oxygen supplementation. Impression of chest x-ray by radiologist: No demonstrated acute cardiopulmonary process.. Actual chest x-ray image was independently interpreted. I agree with radiologist interpretation. Dimer was elevated at 1.14. Follow-up chest CTA showed : Bilateral pulmonary infiltrates in the upper lobes. Received Levaquin at the emergency department. Hold off further antibiotics at this time. Procalcitonin was ordered Rapid Covid antigen was negative. PCR is pending; follow. Received dexamethasone IV at emergency department. Decadron p.o. continued. Her liver enzyme is normal. Tylenol for fever Mucinex ordered Loperamide for diarrhea. Incentive spirometer and Acapella Hypokalemia Review of medical department labs showed a potassium of 2.7. Received p.o. and IV replacement at the emergency department. Trend CMP. Check magnesium. Hypertension Blood pressure is not within goal Home blood pressure medication continued. As needed hydralazine ordered. Trend blood pressure and adjust blood pressure medications. Diabetes mellitus Patient with hyperglycemia on presentation Home basal insulin continued Accu-Chek QA [facility] with correction scale insulin ordered. Obstructive sleep apnea CPAP continued. Continue home settings/titrate for comfort. Anxiety disorder Propranolol continued Restless leg syndrome Requip continued Bilateral leg edema Denies congestive heart failure On Lasix as needed. Not ordered at this time. Morbid Obesity BMI:41.6 Complicates care. Lifestyle modification recommended. DVT prophylaxis Subcutaneous Lovenox ordered. Inpatient E&M: 20529 Init Hosp L3
[2020-04-11] MEDS: levoFLOXacin IV 500 MG/100 ML BAG 100 MG IV (19:46)
[2020-04-11] MEDS: dexAMETHasone 4 MG/ML Vial 6 MG IV (21:03)
[2020-04-11 22:33] LABS: Procalcitonin 0.08 ng/mL (0.00-0.09)
--- NOTE | 2020-04-11 23:13 | NURSING ---
PT DOES NOT KNOW HOME MEDICATIONS. WILL NEED TO CHECK W/PHARM OR DR RODRIGUES'S OFFICE.
--- NOTE | 2020-04-11 23:30 | CPS ---
Pt wears CPAP at home but didn't bring personal unit. Pt refused to wear hospital PAP.
[2020-04-11] MEDS: Insulin Lispro 100 UNIT/ML INSULN.PEN SC (23:55)
[2020-04-11] MEDS: Enoxaparin 40 MG/0.4 ML Syringe SC (23:55)
[2020-04-11] MEDS: guaiFENesin 1,200 MG Tablet 1200 MG PO (23:56)
[2020-04-12] VITALS (7 sets, daily range): BP systolic 132–174; BP diastolic 70–121; PULSE 77–89; RESP 16–20; TEMP 36.6–37.4; O2SAT 82–100; BMI 41.1
[2020-04-12 00:36] LABS: Bedside Glucose 249 mg/dL (70-110)
[2020-04-12 05:46] LABS: Absolute Lymphocyte Count 0.56 X10^3/uL (0.83-4.51); Absolute Neutrophil Count 4.1 X10^3/uL (2.0-7.7); Basophil# 0.03 X10^3/uL; Basophil% 0.6 % (0-1); Eosinophil# 0.01 X10^3/uL; Eosinophils% 0.2 % (0-5); Hematocrit 38.4 % (37-47); Hemoglobin 13.2 g/dL (12.0-15.0); Lymphocyte # 0.56 X10^3/ul (4.0); Lymphocyte % 11.6 % (19-41); Mean Corp Hgb Conc 34.4 g/dL (32-36); Mean Corpuscular Hgb 30.3 pg (27.0-32.0); Mean Corpuscular Volume 88.3 fL (81-99); Mean Platelet Vol. 9.5 fl (6.2-12.0); Monocyte% 2.1 % (0-10); NRBC Flagged by Analyzer 0 % (0-5); Neutrophil # 4.07 X10^3/uL (2.7-7.7); Neutrophil % 84.1 % (47-70); POSITIVE DIFFERENTIAL YES; Platelet Count 248 K/mm3 (150-450); RBC Distribution Width CV 12.3 % (11.6-14.6); RBC Distribution Width SD 40.3 fl (35.1-43.9); Red Blood Count 4.35 M/mm3 (4.2-5.4); White Blood Count 4.8 K/mm3 (4.4-11.0)
[2020-04-12 05:47] LABS: Differential Indicated SCAN CRITERIA MET
[2020-04-12 06:01] LABS: ALB/GLOB Ratio 0.8 RATIO (0.9-2.4); AST(SGOT) 22 U/L (15-37); Alanine Aminotransfer ALT/SGPT 24 U/L (13-56); Albumin, Serum 3.1 g/dL (3.2-5.0); Alkaline Phosphatase 54 U/L (45-117); Anion Gap 7 (5-15); BUN 10 mg/dL (7-18); BUN/Creat Ratio 12.9 RATIO (10-20); Calcium,Total 7.9 mg/dL (8.5-10.1); Chloride 100 mmol/L (98-107); Creatinine, Serum 0.77 mg/dL (0.55-1.02); EST Glomerular Filtration Rate 79 mL/min (>60); Est Glom Filt Rate - Afr Amer 95 mL/min (>60); Estimated Creatinine Clearance 45.85 ml/min; Globulin 3.9 g/dL (2.2-4.2); Glucose 290 mg/dL (74-106); Magnesium 1.5 mg/dL (1.6-2.6); Potassium 3.6 mmol/L (3.5-5.1); Sodium Level 136 mmol/L (136-145)
[2020-04-12 06:16] LABS: Differential Comment SCANNED
[2020-04-12] MEDS: Insulin Lispro 100 UNIT/ML INSULN.PEN SC ×3 (06:59→21:52)
[2020-04-12] MEDS: Enoxaparin 40 MG/0.4 ML Syringe SC ×2 (08:56→21:54)
[2020-04-12] MEDS: dexAMETHasone 4 MG Tablet 6 MG PO (08:56)
[2020-04-12] MEDS: guaiFENesin 1,200 MG Tablet 1200 MG PO ×2 (08:57→21:54)
--- NOTE | 2020-04-12 10:40 | PCM.PN.HOSP ---
Patient Problems: Active and Suspected Problems (Last Reviewed 04/11/20 @ 22:[address] Srinivas Church MD) COVID-19 determined by clinical diagnostic criteria (Acute) Debility (Acute) Reason for Visit: COVID 19 Subjective: Breathing well. Has been ill since . Was told by her PCP she had a viral infection. Unaware she had COVID 19 until she arrived here. Vitals/I&O's: Vital Signs Temp Pulse Resp BP Pulse Ox 37.4 C H 79 20 H 174/70 H 96 04/12/20 02:54 04/12/20 02:54 04/12/20 02:54 04/12/20 02:54 04/12/20 07:45 Oxygen Flow Rate (L/min) 2 Oxygen Delivery Method Nasal Cannula Weight: 108.6 kg Body Mass Index (BMI) 41.1 Finger Stick Blood Glucose 225 Intake and Output for Last 24 Hours 04/10/20 04/11/20 04/12/20 23:59 23:59 23:59 Intake Total 1400 / 1400 850 / 850 Output Total 1100 / 1100 Balance 1400 / 1400 -250 / -250 General: Alert, No apparent distress HEENT: Atraumatic, Normocephalic Oral: Moist Mucosa, No Gingival or Mucosal Lesions/ Ulcerations Neck: No Nodes, Thyroid Normal Size and Texture Lungs: Clear to auscultation, Normal air movement, No rhonchi, No wheeze Cardiovascular: Regular rate, Regular Rhythm, Normal S1, Normal S2, No murmurs Abdomen: Bowel Sounds Present, Soft, Non Tender, Non-Distended, No Hepato-splenomegaly Extremities: No clubbing, No edema, No Calf Tenderness Musculoskeletal: No Tenderness to Palpation of Joints or Extremities, No Muscle Wasting Psych/Mental Status: Normal Affect, Appropriate Microbiology Past 72 Hours 04/11/20 16:35 Mucosa - Nose SARS-CoV-2 Antigen (Rapid) - Final Laboratory Results 04/11/20 16:40: WBC 6.5, RBC 4.64, Hgb 13.9, Hct 41.5, MCV 89.4, MCH 30.0, MCHC 33.5, RDW Std Deviation 41.1, RDW Coeff of Mitzy 12.5, Plt Count 263, MPV 9.6, Immature Gran % (Auto) 0.600, Neut % (Auto) 72.9 H, Lymph % (Auto) 16.0 L, [place]oup % (Auto) 8.3, Eos % (Auto) 1.7, Baso % (Auto) 0.5, Absolute Neuts (auto) 4.7, Absolute Lymphs (auto) 1.04, Nucleated RBC % 0 04/11/20 16:40: PT 13.1, INR 1.0, D-Dimer Quant (PE/DVT) 1.14 H* 04/11/20 16:40: Sodium 139, Potassium 2.7 L*, Chloride 100, Carbon Dioxide 30.0, Anion Gap 9, BUN 15, Creatinine 0.99, Estim Creat Clear Calc 46.31, Est GFR (MDRD) Af Amer 72, Est GFR (MDRD) Non-Af 59 L, BUN/Creatinine Ratio 15.2, Glucose 211 H, Calcium 8.6, Total Bilirubin 0.80, Direct Bilirubin 0.22, AST 23, ALT 26, Alkaline Phosphatase 57, Troponin I 0.018, Total Protein 7.5, Albumin 3.4, Globulin 4.1 04/11/20 16:40: Procalcitonin 0.08 04/11/20 18:20: COVID-19 (SKY) Detected 04/11/20 23:34: POC Glucose 249 H 04/12/20 05:40: WBC 4.8, RBC 4.35, Hgb 13.2, Hct 38.4, MCV 88.3, MCH 30.3, MCHC 34.4, RDW Std Deviation 40.3, RDW Coeff of Mitzy 12.3, Plt Count 248, MPV 9.5, Immature Gran % (Auto) 1.400 H, Neut % (Auto) 84.1 H, Lymph % (Auto) 11.6 L, Troup % (Auto) 2.1, Eos % (Auto) 0.2, Baso % (Auto) 0.6, Absolute Neuts (auto) 4.1, Absolute Lymphs (auto) 0.56 L, Nucleated RBC % 0, Differential Comment SCANNED 04/12/20 05:40: Sodium 136, Potassium 3.6, Chloride 100, Carbon Dioxide 29.0, Anion Gap 7, BUN 10, Creatinine 0.77, Estim Creat Clear Calc 45.85, Est GFR (MDRD) Af Amer 95, Est GFR (MDRD) Non-Af 79, BUN/Creatinine Ratio 12.9, Glucose 290 H, Calcium 7.9 L, Magnesium 1.5 L, Total Bilirubin 0.60, AST 22, ALT 24, Alkaline Phosphatase 54, Total Protein 7.0, Albumin 3.1 L, Globulin 3.9, Albumin/Globulin Ratio 0.8 L Current Medications Acetaminophen (Acetaminophen 325 Mg Tablet) 650 mg PO Q6H PRN PRN PRN Reason: Fever >=100.4 Fahrenheit/pain 1-10 Acetaminophen (Acetaminophen 325 Mg Tablet) 650 mg PO Q6H PRN PRN PRN Reason: Pain Score 1-10/Temp > 100.7 F Albuterol Sulfate (Albuterol Ih 8.5 Gm (Proair) Inhaler (200 Puffs)) 2 puff INHALATION Q4H PRN PRN PRN Reason: SOB/Wheezing Dexamethasone (Dexamethasone 4 Mg Tablet) 6 mg PO DAILY [facility] Last Admin: 04/12/20 08:56 Dose: 6 mg Documented by: Dextrose (Dextrose 50%-Water 25 Gm/50 Ml Disp.Syrin) 0 gm IV X1 PRN; Protocol PRN Reason: Hypoglycemia Enoxaparin Sodium (Enoxaparin 40 Mg/0.4 Ml Syringe) 40 mg SC BID [facility] Last Admin: 04/12/20 08:56 Dose: 40 mg Documented by: Glucagon (Glucagon 1 Mg/Ml Syringe) 1 mg IM .X1 PRN PRN Reason: Hypoglycemia Guaifenesin (Guaifenesin 1,200 Mg Tablet) 1,200 mg PO BID [facility] Last Admin: 04/12/20 08:57 Dose: 1,200 mg Documented by: Hydralazine HCl (Hydralazine 20 Mg/Ml Vial) 5 mg IV Q4H PRN PRN PRN Reason: SBP > 160 Remdesivir 100 mg/ Sodium (Chloride) 250 mls @ 125 mls/hr IV Q24H [facility] Stop: 04/15/20 23:59 Sodium Chloride () 250 mls @ 15 mls/hr IV .[id number] PRN PRN Reason: Additional IVPB Infusion Magnesium Sulfate 2 gm/ Sodium (Chloride) 104 mls @ 52 mls/hr IV X1 ONE Stop: 04/12/20 11:59 Insulin Human Lispro (Insulin Lispro 100 Unit/Ml Insuln.Pen) 0 unit SC ACHS [facility]; Protocol Last Admin: 04/12/20 06:59 Dose: 390 units Documented by: Loperamide HCl (Loperamide 2 Mg Capsule) 2 mg PO Q4H PRN PRN PRN Reason: Diarrhea Ondansetron HCl (Ondansetron 4 Mg/2 Ml Vial) 4 mg IV Q8H PRN PRN PRN Reason: NAUSEA/VOMITING Sodium Chloride (0.9% Saline Lock 10 Ml Syringe) 10 - 40 ml IV UD PRN PRN Reason: SALINE FLUSH STROKE Vital Signs/Narrative: Vital Signs Pulse Ox 04/12/20 07:45 96 04/12/20 07:25 96 Medical Necessity - Tobacco Use Smoking Status: Never smoker Assessment/Plan All Active Problems (Last Reviewed 04/11/20 @ 22:[address] Srinivas Church MD) Bilateral pneumonia (Ruled-out) Hypoxia (Ruled-out) COVID-19 determined by clinical diagnostic criteria (Acute) Debility (Acute) Carpal tunnel syndrome (Resolved) Cystitis, acute (Resolved) Dehydration (Resolved) Dehydration with hyponatremia (Resolved) Gastroenteritis (Resolved) History of abdominal pain (Resolved) Sepsis (Resolved) 1. acute COVID 19 pneumonia: Symptoms began roughly on the . Patient was told that she had a viral infection. Likely patient has Covid starting then. Patient was not hypoxic with low oxygen dipped down to 91%. Patient has been started on dexamethasone as well as remdesivir. Reviewed the patient's CAT scan and really do not appreciate any of the classic Covid infiltrate or groundglass opacities. From a nose standpoint from Covid, patient is not that ill. Patient is medically stable from a Covid standpoint to be discharged though would check an amatory pulse ox prior to discharge. I do not appreciate any infiltrates to suggest that patient has a bacterial pneumonia. Patient did receive levofloxacin in the emergency room and that has not been continued. On dexamethasone and remdesivir. 2. Debility: Elderly female who has Covid. Patient too weak to manage on her own. PT OT evaluate and treat and will assess to see if patient will be a candidate for senior living facility. 3. Diabetes mellitus type 2: At home is on insulin 75/25, resume and start SSI 4. hypomagnesemia: replace. 5. VTE prophylaxis: enoxaparin. Inpatient E&M: 42963 Subs Hosp L2
--- NOTE | 2020-04-12 12:10 | PCM.NTREPORT ---
Nutrition Therapy Report - History Nutrition Services has been consulted to:: Manage nutrient details of diet order Current diet / nutrition support order:: consistent carbohydrate, 1800 calorie controlled - Anthropometric Measurements Height:: 5 ft 4 in Weight:: 108.6 kg Body Mass Index (BMI):: 41.1 - Relevant Labs Relevant Labs:: Immature Gran % (Auto) 1.400 % (0.0-0.9) H 04/12/20 05:40 Neut % (Auto) 84.1 % (47-70) H 04/12/20 05:40 Lymph % (Auto) 11.6 % (19-41) L 04/12/20 05:40 Absolute Lymphs (auto) 0.56 X10^3/uL (0.83-4.51) L 04/12/20 05:40 D-Dimer Quant (PE/DVT) 1.14 FEU/ug/m (0.27-0.49) H* 04/11/20 16:40 Potassium 2.7 mmol/L (3.5-5.1) L* 04/11/20 16:40 Est GFR (MDRD) Non-Af 59 mL/min (>60) L 04/11/20 16:40 Glucose 290 mg/dL (74-106) H 04/12/20 05:40 Calcium 7.9 mg/dL (8.5-10.1) L 04/12/20 05:40 Magnesium 1.5 mg/dL (1.6-2.6) L 04/12/20 05:40 Albumin 3.1 g/dL (3.2-5.0) L 04/12/20 05:40 Albumin/Globulin Ratio 0.8 RATIO (0.9-2.4) L 04/12/20 05:40 - Assessment Food / Nutrition-Related History:: Currently in isolation d/t COVID-19. Spoke w/ pt via room phone. 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 Describes fair intake at breakfast this AM. Currently does not have false teeth- needs soft foods. States wt 1 week ago was 250#. CBW 239.4#-10.6#/4.2% wt loss x 1 week, significant for acute malnutrition. - Nutrition Diagnosis Problem / Etiology / Signs & Symptoms (PES):: Pt w/ acute, severe malnutrition related to inadequate energy intake during acute illness as evidenced by reported poor PO intake meeting less than 50% of estimated nutritional needs >5 days, wt loss of 10.6#/4.2% x 1 week. Evidence of Malnutrition Exists:: Yes Severe PCM:: Acute Illness - Nutrition Intervention Nutrition Prescription:: [id number] calories, 75-85 g protein/day - Food / Nutrient Delivery Interventions Summary of nutrition intervention:: Discussed ONS- pt agreeable to Glucerna w/meals for additional calories/protein if consumed. Will notify kitchen staff that pt needs soft foods. Nutrition support ordered as / adjusted to:: Continue consistent CHO, 1800 calorie controlled diet as ordered. Will add 120mL Glucerna w/ meals d/t acute malnutrition. If PO at meals fails, recommend regular diet. - MNT Monitoring Further MNT monitoring and evaluation required?: Yes MNT Follow-up in:: 3-5 days
[2020-04-12 12:35] LABS: Bedside Glucose 297 mg/dL (70-110)
--- NOTE | 2020-04-12 12:37 | CASEMGMT ---
Social Work SW received referral from physician that pt may need SNF placement at D/C. Phone call placed to pt room and introduced self and role of SW. Pt agreeable to speak with SW at this time. Pt is A/O and answers all questions appropriately. Care providers, pharmacy, and demographics verified. Pt tested positive for Covid 04/09/20 at [facility] PCP: Dr. Cervantes Specialists: Podiatry, Pulmonology - Dr. Waggoner, Cardiology - Dr. Sepulveda Preferred Pharmacy: [facility] for immediate needs, [facility] scripts by mail for routine meds Insurance: [employer] Prescription Benefit: Yes Living Will/HPOA: Pt has both a LW and HCPOA and made aware documents are not on file at [facility]. Pt is uncertain who she named as HCPOA, spouse, son or niece. LNOK: Spouse, Jean Carlos Living Arrangements: Pt lives in a mobile home with her spouse Jean Carlos. She has a ramp entrance with one step to enter. Pt states she has been weak at home and while is retired and willing to assist, she has not been getting along well at home. Pt has been staying in a recliner chair using a depends and has not gotten out of chair for some time. DME: Pt States has the following DME: rollator, walker, cpap, nebulizer, raised toilet seat, shower chair HHC/SNF: 2019 TCU, [facility] HHS PT/OT/ST/SN in the past but not currently Pt admits to feeling very weak at home and that she has not been getting along very well. SW broached topic of SNF for short term rehab. Pt stating she does not want to go to a free standing facility but would go to TCU. SW explained that TCU is not currently accepting pt with Covid. Pt expresses understanding and is now more open to discuss SNF placement. SW reviewed SNF that are in network with insurance and known to this SW to be accepting Covid Positive Patients. SW called pt back to review information and pt requesting SW call after she finishes her lunch. SW to follow up. RICHARD Wong
--- NOTE | 2020-04-12 14:52 | CASEMGMT ---
Social Work SW placed call to pt room to discuss fdc options. Reinforced with pt that she cannot go to TCU at this time due to Covid. Provided verbal information of the facilities in [facility] that are accepting Covid patients and in network with insurance. [facility] and [facility]. SW also provided Medicare star rating of each facility. SW informed pt that there are also facility options in [facility] and [facility] that SW could provide to her and pt denied stating those places are too far away. Pt made aware that there are no visitor allowed at SNFs at this time. Pt requesting time to consider options. SW will call pt in the morning for decision. Pt is agreeable to this time frame. RICHARD Beckford
[2020-04-12] MEDS: Insulin Human 75/25 Kwickpen 85 UNIT SC (17:09)
[2020-04-12 17:10] LABS: Bedside Glucose 310 mg/dL (70-110)
[2020-04-12] MEDS: Losartan Potassium 100 MG Tablet PO (21:54)
[2020-04-12] MEDS: Pramipexole Di-HCl 0.5 MG Tablet 1.5 MG PO (22:05)
[2020-04-12] MEDS: Loperamide 2 MG Capsule PO (22:50)
[2020-04-12] MEDS: MELATONIN 10 MG TABLET PO (22:50)
[2020-04-13] VITALS (9 sets, daily range): BP systolic 125–150; BP diastolic 58–77; PULSE 60–73; RESP 16–19; TEMP 36.7–36.9; O2SAT 93–96
[2020-04-13 05:41] LABS: Anion Gap 4 (5-15); BUN 13 mg/dL (7-18); BUN/Creat Ratio 17.5 RATIO (10-20); Calcium,Total 8.4 mg/dL (8.5-10.1); Chloride 104 mmol/L (98-107); Creatinine, Serum 0.74 mg/dL (0.55-1.02); EST Glomerular Filtration Rate 82 mL/min (>60); Est Glom Filt Rate - Afr Amer 99 mL/min (>60); Estimated Creatinine Clearance 45.85 ml/min; Glucose 129 mg/dL (74-106); Potassium 3.5 mmol/L (3.5-5.1); Sodium Level 138 mmol/L (136-145)
[2020-04-13 05:51] LABS: Bedside Glucose 272 mg/dL (70-110)
[2020-04-13] MEDS: Propranolol LA 60 MG Capsule 120 MG PO (08:58)
[2020-04-13] MEDS: dexAMETHasone 4 MG Tablet 6 MG PO (08:58)
[2020-04-13] MEDS: Isosorbide Mononitrate 30 MG Tablet PO (08:59)
[2020-04-13] MEDS: Pramipexole Di-HCl 0.5 MG Tablet 1.5 MG PO ×2 (08:59→22:04)
[2020-04-13] MEDS: Gabapentin 800 MG Tablet PO ×2 (08:59→16:59)
[2020-04-13] MEDS: guaiFENesin 1,200 MG Tablet 1200 MG PO ×2 (08:59→22:04)
[2020-04-13] MEDS: Loperamide 2 MG Capsule PO (08:59)
[2020-04-13] MEDS: Enoxaparin 40 MG/0.4 ML Syringe SC ×2 (08:59→22:05)
[2020-04-13] MEDS: Insulin Human 75/25 Kwickpen 60 UNIT SC (09:00)
--- NOTE | 2020-04-13 12:21 | CASEMGMT ---
Addendum entered by Talya Garner 04/13/20 15:19: Social Work Return call from Caitlyn at [facility] who has reviewed pt referral and states that pt could be considered for admission paying privately but pt would not qualify for admission under insurance as she is functionally at baseline. Phone call to pt room and informed of this. Pt denies desire to pay privately for SNF and states she will return home. SW discussed option on home health PT/OT/DIRECTOR OF PROVIDER RELATIONS and pt is agreeable to this. SW presented options of companies in network with insurance and also accepting Covid pt. Pt first choice is [facility], second choice [facility] and third choice [facility]. Referral made to Fatuma at [facility] and will await determination. SW also spoke with pt regarding Passport program and pt is agreeable to referral. Phone call to [facility] and referral made to Klaudia. Someone from the agency will be contacting the patient directly to set up an appointment for intake. Pt notified of the discharge plan and is agreeable. Plan: Home with spouse and Home Health Services PT/OT/DIRECTOR OF PROVIDER RELATIONS. Passport referral made. RICHARD Beckford Original Note: Social Work SW reviewed pt therapy notes and pt did well yesterday. SW called into pt room to discussed discharge plans including pt functional ability with therapy. Pt stating it did feel good to get out of bed and that she did fairly well, however pt states she feels she needs to go to a penitentiary. Pt stating she has not showered in about a week and is unable to do so at home and is not able to get around at home well with her walker. Pt stating she mostly just sits in her chair. SW inquired if pt feels SNF placement would be termination clerk, but pt denies and is hopeful she can return home eventually. Pt lives with her but states he does not provide a lot of assistance. SW talked to pt about hiring home health aides to assist in the home but pt unable siting financial restrictions. SW discussed passport program with pt, but pt states she has applied for Medicaid in the past and did not qualify. Pt uncertain when the last time she applied for Medicaid was. SW reviewed current income guidelines and pt indicates she is below these guidelines. Even if Pt were eligible, Passport services would take some time to be set up. Pt again reiterates desire to go to [facility] SNF. SW explained that uncertain if insurance would cover stay due to functional ability with therapy but SW would check with [facility]. Phone call to [facility], and they do have a bed available and they will accept referral information and consider pt. Referral faxed. Will await determination from [facility]. Plan: Referral faxed to [facility], will await determination of acceptance and insurance auth RICHARD Beckford
[2020-04-13] MEDS: Menthol/Lanolin/Calamine/Znox 113 GM Tube 1 APPLIC TOPICAL ×2 (12:56→22:04)
[2020-04-13 13:00] LABS: Bedside Glucose 135 mg/dL (70-110)
--- NOTE | 2020-04-13 14:42 | PCM.PN.HOSP ---
Patient Problems: Active and Suspected Problems (Last Reviewed 04/11/20 @ 22:[address] Srinivas Church MD) COVID-19 determined by clinical diagnostic criteria (Acute) Debility (Acute) Reason for Visit: debility Subjective: Breathing well. Vitals/I&O's: Vital Signs Temp Pulse Resp BP Pulse Ox 36.7 C 73 18 135/59 H 94 04/13/20 09:12 04/13/20 09:12 04/13/20 09:12 04/13/20 09:12 04/13/20 11:39 Oxygen Flow Rate (L/min) 2 Oxygen Delivery Method Nasal Cannula Weight: 108.6 kg Body Mass Index (BMI) 41.1 Finger Stick Blood Glucose 225 Intake and Output for Last 24 Hours 04/11/20 04/12/20 04/13/20 23:59 23:59 23:59 Intake Total 1400 / 1400 1554 / 1674 890 / 890 Output Total 1950 / 2250 1300 / 1300 Balance 1400 / 1400 -396 / -576 -410 / -410 General: Alert, No apparent distress HEENT: Atraumatic, Normocephalic Oral: Moist Mucosa, No Gingival or Mucosal Lesions/ Ulcerations Neck: No Nodes, Thyroid Normal Size and Texture Lungs: Clear to auscultation, Normal air movement, No rhonchi, No wheeze, No rales Cardiovascular: Regular rate, Regular Rhythm, Normal S1, Normal S2, No murmurs Abdomen: Bowel Sounds Present, Soft, Non Tender, Non-Distended, No Hepato-splenomegaly Extremities: No edema, No Calf Tenderness Skin: No rashes, No breakdown Psych/Mental Status: Normal Affect, Appropriate Microbiology Past 72 Hours 04/12/20 15:10 Stool C. difficile DNA Amplification - Final 04/11/20 16:35 Mucosa - Nose SARS-CoV-2 Antigen (Rapid) - Final Laboratory Results 04/12/20 16:44: POC Glucose 310 H 04/12/20 21:51: POC Glucose 272 H 04/13/20 05:20: Sodium 138, Potassium 3.5, Chloride 104, Carbon Dioxide 30.0, Anion Gap 4 L, BUN 13, Creatinine 0.74, Estim Creat Clear Calc 45.85, Est GFR (MDRD) Af Amer 99, Est GFR (MDRD) Non-Af 82, BUN/Creatinine Ratio 17.5, Glucose 129 H, Calcium 8.4 L, Magnesium 2.0 04/13/20 12:54: POC Glucose 135 H Current Medications Acetaminophen (Acetaminophen 325 Mg Tablet) 650 mg PO Q6H PRN PRN PRN Reason: Fever >=100.4 Fahrenheit/pain 1-10 Acetaminophen (Acetaminophen 325 Mg Tablet) 650 mg PO Q6H PRN PRN PRN Reason: Pain Score 1-10/Temp > 100.7 F Albuterol Sulfate (Albuterol Ih 8.5 Gm (Proair) Inhaler (200 Puffs)) 2 puff INHALATION Q6H PRN PRN Reason: shortness of breath or wheezin Calamine/Phenol (Menthol/Lanolin/Calamine/Znox 113 Gm Tube) 1 applic TOPICAL BID [facility]; Protocol Last Admin: 04/13/20 12:56 Dose: 1 applicatio Documented by: Dexamethasone (Dexamethasone 4 Mg Tablet) 6 mg PO DAILY [facility] Last Admin: 04/13/20 08:58 Dose: 6 mg Documented by: Dextrose (Dextrose 50%-Water 25 Gm/50 Ml Disp.Syrin) 0 gm IV X1 PRN; Protocol PRN Reason: Hypoglycemia Enoxaparin Sodium (Enoxaparin 40 Mg/0.4 Ml Syringe) 40 mg SC BID [facility] Last Admin: 04/13/20 08:59 Dose: 40 mg Documented by: Furosemide (Furosemide 40 Mg Tablet) 40 mg PO DAILY PRN PRN Reason: WATER PILL Gabapentin ([facility]entin 800 Mg Tablet) [facility] Last Admin: 04/13/20 08:59 Dose: 800 mg Documented by: Glucagon (Glucagon 1 Mg/Ml Syringe) 1 mg IM .X1 PRN PRN Reason: Hypoglycemia Guaifenesin (Guaifenesin 1,200 Mg Tablet) 1,200 mg PO BID [facility] Last Admin: 04/13/20 08:59 Dose: 1,200 mg Documented by: Hydralazine HCl (Hydralazine 20 Mg/Ml Vial) 5 mg IV Q4H PRN PRN PRN Reason: SBP > 160 Remdesivir 100 mg/ Sodium (Chloride) 250 mls @ 125 mls/hr IV Q24H [facility] Stop: 04/15/20 23:59 Last Infusion: 04/13/20 01:21 Dose: Infused Documented by: Sodium Chloride () 250 mls @ 15 mls/hr IV .[id number] PRN PRN Reason: Additional IVPB Infusion Insulin Human Lispro (Insulin Lispro 100 Unit/Ml Insuln.Pen) 0 unit SC ACHS [facility]; Protocol Last Admin: 04/13/20 12:56 Dose: Not Given Documented by: Insulin Lispro Protam/Lispro Human (Insulin Human 75/25 [place]) 60 unit SC BREAKFAST [facility] Last Admin: 04/13/20 09:00 Dose: 60 u Documented by: Insulin Lispro Protam/Lispro Human (Insulin Human 75/25 [place]) 85 unit SC DINNER [facility] Last Admin: 04/12/20 17:09 Dose: 85 units Documented by: Isosorbide Mononitrate (Isosorbide Mononitrate 30 Mg Tablet) 30 mg PO DAILY [facility] Last Admin: 04/13/20 08:59 Dose: 30 mg Documented by: Loperamide HCl (Loperamide 2 Mg Capsule) 2 mg PO Q4H PRN PRN PRN Reason: Diarrhea Last Admin: 04/13/20 08:59 Dose: 2 mg Documented by: Losartan Potassium (Losartan Potassium 100 Mg Tablet) 100 mg PO QHS [facility] Last Admin: 04/12/20 21:54 Dose: 100 mg Documented by: Melatonin (Melatonin 10 Mg Tablet) 10 mg PO QHS PRN PRN Reason: INSOMNIA Last Admin: 04/12/20 22:50 Dose: 10 mg Documented by: Ondansetron HCl (Ondansetron 4 Mg/2 Ml Vial) 4 mg IV Q8H PRN PRN PRN Reason: NAUSEA/VOMITING Potassium Chloride (Potassium Chloride 20 Meq Tablet) 40 meq PO QHS [facility] Last Admin: 04/12/20 22:00 Dose: 40 meq Documented by: Pramipexole Dihydrochloride (Pramipexole Di-Hcl 0.5 Mg Tablet) 1.5 mg PO BID [facility] Last Admin: 04/13/20 08:59 Dose: 1.5 mg Documented by: Propranolol HCl (Propranolol La 60 Mg Capsule) 120 mg PO DAILY [facility] Last Admin: 04/13/20 08:58 Dose: 120 mg Documented by: Sodium Chloride (0.9% Saline Lock 10 Ml Syringe) 10 - 40 ml IV UD PRN PRN Reason: SALINE FLUSH STROKE Vital Signs/Narrative: Vital Signs Pulse Ox 04/13/20 11:39 94 Medical Necessity - Tobacco Use Smoking Status: Never smoker Assessment/Plan All Active Problems (Last Reviewed 04/11/20 @ 22:[address] Srinivas Church MD) Bilateral pneumonia (Ruled-out) Hypoxia (Ruled-out) COVID-19 determined by clinical diagnostic criteria (Acute) Debility (Acute) Carpal tunnel syndrome (Resolved) Cystitis, acute (Resolved) Dehydration (Resolved) Dehydration with hyponatremia (Resolved) Gastroenteritis (Resolved) History of abdominal pain (Resolved) Sepsis (Resolved) 1. acute COVID 19 pneumonia: Symptoms began roughly on the . Patient was told that she had a viral infection. Likely patient has Covid starting then. Patient was not hypoxic with low oxygen dipped down to 91%. Patient has been started on dexamethasone as well as remdesivir. Reviewed the patient's CAT scan and really do not appreciate any of the classic Covid infiltrate or groundglass opacities. From a nose standpoint from Covid, patient is not that ill. Patient is medically stable from a Covid standpoint to be discharged though would check an amatory pulse ox prior to discharge. I do not appreciate any infiltrates to suggest that patient has a bacterial pneumonia. Patient did receive levofloxacin in the emergency room and that has not been continued. On dexamethasone and remdesivir. 2. Debility: Elderly female who has Covid. Patient too weak to manage on her own. PT OT evaluate and treat and will assess to see if patient will be a candidate for residential facility. 3. Diabetes mellitus type 2: At home is on insulin 75/25, resume and start SSI 4. hypomagnesemia: resolved 5. VTE prophylaxis: enoxaparin. Inpatient E&M: [id number] [facility] Hosp L2
[2020-04-13] MEDS: Insulin Lispro 100 UNIT/ML INSULN.PEN SC ×2 (16:59→22:12)
[2020-04-13] MEDS: Insulin Human 75/25 Kwickpen 85 UNIT SC (17:00)
[2020-04-13 17:55] LABS: Bedside Glucose 260 mg/dL (70-110)
[2020-04-13] MEDS: Losartan Potassium 100 MG Tablet PO (22:04)
[2020-04-13 22:21] LABS: Bedside Glucose 178 mg/dL (70-110)
[2020-04-14] VITALS (7 sets, daily range): BP systolic 139–148; BP diastolic 74–98; PULSE 70–76; RESP 18; TEMP 36.4–36.7; O2SAT 92–96
[2020-04-14 05:54] LABS: Anion Gap 6 (5-15); BUN 21 mg/dL (7-18); BUN/Creat Ratio 25.6 RATIO (10-20); Calcium,Total 8.6 mg/dL (8.5-10.1); Chloride 106 mmol/L (98-107); Creatinine, Serum 0.82 mg/dL (0.55-1.02); EST Glomerular Filtration Rate 73 mL/min (>60); Est Glom Filt Rate - Afr Amer 89 mL/min (>60); Estimated Creatinine Clearance 55.91 ml/min; Glucose 100 mg/dL (74-106); Potassium 3.6 mmol/L (3.5-5.1); Sodium Level 138 mmol/L (136-145)
[2020-04-14 07:15] LABS: Bedside Glucose 74 mg/dL (70-110)
--- NOTE | 2020-04-14 08:46 | CASEMGMT ---
Addendum entered by Talya Garner 04/14/20 14:23: Social Work Return call from [facility] and they are able to accept pt with start date of Friday for PT/OT/BUFFET RUNNER. PT ready for discharge today. Discharge instructions faxed to [facility] and SW spoke with pt on the phone. SW explained d/c plan with [facility] and pt is agreeable. SW also reexplained that a worker from [facility] would be calling to do an assessment for the Passport program which could potentially provide more permanent aides in the home. Pt expresses understanding and agreement with discharge plan. Plan: Home with spouse, Home health PT/OT/BUFFET RUNNER, Passport referral. RICHARD Short Original Note: Social Work Return call from [facility] and they are unable to accept pt. Referral call to [facility] and they would consider accepting pt. Referral faxed and will await determination of acceptance. RICHARD Beckford
[2020-04-14] MEDS: Propranolol LA 60 MG Capsule 120 MG PO (10:53)
[2020-04-14] MEDS: Pramipexole Di-HCl 0.5 MG Tablet 1.5 MG PO (10:53)
[2020-04-14] MEDS: Enoxaparin 40 MG/0.4 ML Syringe SC (10:53)
[2020-04-14] MEDS: dexAMETHasone 4 MG Tablet 6 MG PO (10:53)
[2020-04-14] MEDS: Gabapentin 800 MG Tablet PO ×2 (10:54→16:23)
[2020-04-14] MEDS: guaiFENesin 1,200 MG Tablet 1200 MG PO (10:54)
[2020-04-14] MEDS: Isosorbide Mononitrate 30 MG Tablet PO (10:54)
[2020-04-14] MEDS: Menthol/Lanolin/Calamine/Znox 113 GM Tube 1 APPLIC TOPICAL (10:55)
[2020-04-14] MEDS: Insulin Human 75/25 Kwickpen 60 UNIT SC (10:56)
[2020-04-14 12:40] LABS: Bedside Glucose 112 mg/dL (70-110)
--- NOTE | 2020-04-14 13:53 | DCINST_ITS ---
- Discharge Diagnoses Current Active Problems: Current Active and Chronic Problems (Last Reviewed 04/11/20 @ 22:[address] Srinivas Church MD) COVID-19 determined by clinical diagnostic criteria (Acute) Debility (Acute) Spinal stenosis, lumbar region with neurogenic claudication (Chronic) Lumbar spondylosis (Chronic) Diabetes mellitus (Chronic) Hypertension (Chronic) Anemia (Chronic) Body mass index (BMI) 40.0-44.9, adult (Chronic) Depression (Chronic) Coronary artery disease (Chronic) Muscle spasm (Chronic) Atherosclerosis of [place] coronary artery of [place] heart without angina pectoris (Chronic) Essential hypertension (Chronic) Hyperlipidemia due to type 2 diabetes mellitus (Chronic) Stage 3 severe COPD by GOLD classification (Chronic) FEV1 42% of predicted Recurrent falls (Chronic) Seasonal allergies (Chronic) Chronic bronchitis (Chronic) Vitamin D deficiency (Chronic) Hyperlipidemia (Chronic) Diabetic peripheral neuropathy (Chronic) Hypokalemia (Chronic) IBS (irritable bowel syndrome) (Chronic) Insomnia (Chronic) Spinal stenosis of lumbar region (Chronic) DDD (degenerative disc disease), cervical (Chronic) Disequilibrium (Chronic) Dyspnea on exertion (Chronic) GERD (gastroesophageal reflux disease) (Chronic) Morbid obesity (Chronic) DM (diabetes mellitus), type 2, uncontrolled (Chronic) . Is now feeling better and BG more controlled. Understands checking consistently and managing BG on daily basis. Pain management also creates higher BG; however this is needed for patient quality of life. Atrial septal defect (Chronic) Pulmonary emboli (Chronic) Edema (Chronic) Abnormal echocardiogram (Chronic) SOB (shortness of breath) (Chronic) Asthma (Chronic) Restless leg syndrome (Chronic) Anxiety and depression (Chronic) SHANNON (obstructive sleep apnea) (Chronic) CPAP 16 cm of water Obesity (BMI 35.0-39.9 without comorbidity) (Chronic) Has medical issues as well as pain which prevent patient from activity and exercise. Discussed as usual her caloric intake as well as water aerobics and armchair exercises. You will use the following diet at home:: Calorie/Carbohydrate Controlled (specify 1200, 1400, etc) - 1800 Your food should be the consistency of: Regular Your liquids should be the consistency of: Regular/Thin Additional Instructions: Self isolate for at least 10 days since symptoms began (04/03/2020) or the first postive COVID-19 test AND at least one day (24 hours) have passed since resolution of fever without the use of fever-reducing agents AND improvement of symptoms (e.g., cough, shortness of breath) When around people in the same room, wear a face mask. Individuals also in the room should wear a mask. If possible, use a different bathroom and bedroom. Perform adequate hand hygiene. Avoid sharing dishes, glasses, etc. Family members with close contact with you and/or postive for COVID-19 should follow these instructions. Allergies/Adverse Reactions: Allergies rivaroxaban [From Xarelto] Allergy (Intermediate, Verified 01/06/20 14:30) Itching latex Allergy (Verified 01/06/20 14:30) Itching pravastatin Allergy (Verified 01/06/20 14:30) Unknown codeine Adverse Reaction (Severe, Verified 01/06/20 14:30) Itching zolpidem [From Ambien] Adverse Reaction (Severe, Verified 01/06/20 14:30) Sleep walking/talking environmental Allergy (Uncoded 01/06/20 14:30) Other Medications to take at Discharge Ropinirole HCl [Requip] 4 mg PO BID 02/23/13 losartan 100 mg tablet 100 mg PO QHS 02/28/17 propranolol 120 mg capsule,24 hr,extended release 120 mg PO QDAY 02/28/17 Acetaminophen [Tylenol] 1,000 mg PO Q6H PRN tab 03/01/19 albuterol sulfate 90 mcg/actuation aerosol inhaler 2 puff INHALATION Q6H PRN #18 g 07/22/19 isosorbide mononitrate 30 mg tablet,extended release 24 hr 30 mg PO DAILY #90 tab 10/11/19 albuterol sulfate 2.5 mg INHALATION Q4H PRN #180 ml 12/01/19 furosemide 40 mg tablet 40 mg PO DAILY PRN tab 01/06/20 gabapentin 800 mg tablet 800 mg PO BID tab 01/06/20 hydrochlorothiazide 25 mg tablet 25 mg PO DAILY #90 tab 01/06/20 insulin lispro protamine-lispro 100 unit/mL (75-25) subcutaneous pen 60 unit SUBCUT BREAKFAST ml 01/06/20 insulin lispro protamine-lispro 100 unit/mL (75-25) subcutaneous pen 85 unit SUBCUT DINNER ml 01/06/20 melatonin 10 mg sublingual tablet 10 mg PO QHS PRN tab 01/06/20 potassium chloride 20 mEq tablet,extended release(part/cryst) 40 meq PO QHS tab 01/20/20 Dexamethasone [Decadron] 6 mg PO DAILY #6 tab 04/14/20 The following prescriptions were given: Dexamethasone [Decadron] 6 mg PO DAILY #6 tab Transmission Status: Pending to [facility] Primary Care Physician: Kaz Cervantes DO [Primary Care Provider] - Within 2 Weeks Test Results: Test results from this visit will be discussed in further detail at your follow- up appointment, if applicable. Proposed Discharge Date: 04/14/20
--- NOTE | 2020-04-14 13:57 | PCM.DC.SUM ---
Discharge Date and Diagnosis - Problem List Patient Problems: Active and Suspected Problems (Last Reviewed 04/11/20 @ 22:[address] Srinivas Church MD) COVID-19 determined by clinical diagnostic criteria (Acute) Debility (Acute) Date of Admission: 04/11/20 Date of Discharge: 04/14/20 - Primary Discharge Diagnosis Acute Problems: Active Problems (Last Reviewed 04/11/20 @ 22:[address] Srinivas Church MD) COVID-19 determined by clinical diagnostic criteria (Acute) Debility (Acute) - Secondary Discharge Diagnosis Chronic Problems: Chronic Problems (Last Reviewed 04/11/20 @ 22:[address] Srinivas Church MD) Spinal stenosis, lumbar region with neurogenic claudication (Chronic) Lumbar spondylosis (Chronic) Diabetes mellitus (Chronic) Hypertension (Chronic) Anemia (Chronic) Body mass index (BMI) 40.0-44.9, adult (Chronic) Depression (Chronic) Coronary artery disease (Chronic) Muscle spasm (Chronic) Atherosclerosis of [place] coronary artery of [place] heart without angina pectoris (Chronic) Essential hypertension (Chronic) Hyperlipidemia due to type 2 diabetes mellitus (Chronic) Stage 3 severe COPD by GOLD classification (Chronic) FEV1 42% of predicted Recurrent falls (Chronic) Seasonal allergies (Chronic) Chronic bronchitis (Chronic) Vitamin D deficiency (Chronic) Hyperlipidemia (Chronic) Diabetic peripheral neuropathy (Chronic) Hypokalemia (Chronic) IBS (irritable bowel syndrome) (Chronic) Insomnia (Chronic) Spinal stenosis of lumbar region (Chronic) DDD (degenerative disc disease), cervical (Chronic) Disequilibrium (Chronic) Dyspnea on exertion (Chronic) GERD (gastroesophageal reflux disease) (Chronic) Morbid obesity (Chronic) DM (diabetes mellitus), type 2, uncontrolled (Chronic) . Is now feeling better and BG more controlled. Understands checking consistently and managing BG on daily basis. Pain management also creates higher BG; however this is needed for patient quality of life. Atrial septal defect (Chronic) Pulmonary emboli (Chronic) Edema (Chronic) Abnormal echocardiogram (Chronic) SOB (shortness of breath) (Chronic) Asthma (Chronic) Restless leg syndrome (Chronic) Anxiety and depression (Chronic) SHANNON (obstructive sleep apnea) (Chronic) CPAP 16 cm of water Obesity (BMI 35.0-39.9 without comorbidity) (Chronic) Has medical issues as well as pain which prevent patient from activity and exercise. Discussed as usual her caloric intake as well as water aerobics and armchair exercises. Hospital Course and Treatment Imaging Results: Clinical Impression(s) from Imaging Studies Chest CTA 04/11/20 17:24 IMPRESSION: 1. Small subpleural infiltrates are present in the periphery of the bilateral upper lobes, slightly more prominent on the left than right. Small developing islands of infiltrates are also seen in the bilateral lower lobes in the subpleural/peripheral regions. No pleural effusion. 2. No demonstrated pulmonary embolism or arterial dissection. Electronically Signed: David Josue MD at 18:59 EST , Service support , Chest X-Ray 04/11/20 17:26 IMPRESSION: Degenerative changes, as described above. No demonstrated acute cardiopulmonary process. Electronically Signed: David Josue MD at 17:48 EST , Service support , Operations: None Procedures: None Summary of Care Provided: The patient is a 70 year old F presents with weakness. Patient had Covid but was not that ill from it but was unable to get up on her own. Patient was seen by therapy recommend additional therapy. Patient did not qualify for [facility] facility so be going home with home care. Given a Covid diagnosis, patient will complete total 10 days of dexamethasone. Patient did receive remdesivir while she was here and did not get worse. Patient be discharged home in stable condition. [] Patient Problems: Active and Suspected Problems (Last Reviewed 04/11/20 @ 22:[address] Srinivas Church MD) COVID-19 determined by clinical diagnostic criteria (Acute) Debility (Acute) - Physical Exam Vitals/I&O's: Vital Signs Temp Pulse Resp BP Pulse Ox 36.6 C 70 18 148/77 H 95 04/14/20 11:00 04/14/20 11:00 04/14/20 11:00 04/14/20 11:00 04/14/20 11:00 Oxygen Flow Rate (L/min) 2 Oxygen Delivery Method Room Air Weight: 108.6 kg Body Mass Index (BMI) 41.1 Finger Stick Blood Glucose 225 Intake and Output for Last 24 Hours 04/12/20 04/13/20 04/14/20 23:59 23:59 23:59 Intake Total 1554 / 1674 1190 / 1490 900 / 900 Output Total 1950 / 2250 1300 / 1500 425 / 425 Balance -396 / -576 -110 / -10 475 / 475 General: Alert, No apparent distress HEENT: Atraumatic, Normocephalic Oral: Moist Mucosa, No Gingival or Mucosal Lesions/ Ulcerations Neck: No Nodes, Thyroid Normal Size and Texture Lungs: Clear to auscultation, Normal air movement, No rhonchi, No wheeze, No rales Cardiovascular: Regular rate, Regular Rhythm, Normal S1, Normal S2, No murmurs Abdomen: Bowel Sounds Present, Soft, Non Tender, Non-Distended, No Hepato-splenomegaly Extremities: No edema, No Calf Tenderness Psych/Mental Status: Normal Affect, Appropriate Microbiology Past 72 Hours 04/12/20 15:10 Stool C. difficile DNA Amplification - Final 04/11/20 16:35 Mucosa - Nose SARS-CoV-2 Antigen (Rapid) - Final Laboratory Results 04/13/20 16:57: POC Glucose 260 H 04/13/20 22:10: POC Glucose 178 H 04/14/20 05:00: Sodium 138, Potassium 3.6, Chloride 106, Carbon Dioxide 26.0, Anion Gap 6, BUN 21 H, Creatinine 0.82, Estim Creat Clear Calc 55.91, Est GFR (MDRD) Af Amer 89, Est GFR (MDRD) Non-Af 73, BUN/Creatinine Ratio 25.6 H, Glucose 100, Calcium 8.6 04/14/20 06:50: POC Glucose 74 04/14/20 12:36: POC Glucose 112 H Current Medications Acetaminophen (Acetaminophen 325 Mg Tablet) 650 mg PO Q6H PRN PRN PRN Reason: Fever >=100.4 Fahrenheit/pain 1-10 Acetaminophen (Acetaminophen 325 Mg Tablet) 650 mg PO Q6H PRN PRN PRN Reason: Pain Score 1-10/Temp > 100.7 F Albuterol Sulfate (Albuterol Ih 8.5 Gm (Proair) Inhaler (200 Puffs)) 2 puff INHALATION Q6H PRN PRN Reason: shortness of breath or wheezin Calamine/Phenol (Menthol/Lanolin/Calamine/Znox 113 Gm Tube) 1 applic TOPICAL BID [facility]; Protocol Last Admin: 04/14/20 10:55 Dose: 1 applicatio Documented by: Dexamethasone (Dexamethasone 4 Mg Tablet) 6 mg PO DAILY [facility] Last Admin: 04/14/20 10:53 Dose: 6 mg Documented by: Dextrose (Dextrose 50%-Water 25 Gm/50 Ml Disp.Syrin) 0 gm IV X1 PRN; Protocol PRN Reason: Hypoglycemia Enoxaparin Sodium (Enoxaparin 40 Mg/0.4 Ml Syringe) 40 mg SC BID [facility] Last Admin: 04/14/20 10:53 Dose: 40 mg Documented by: Furosemide (Furosemide 40 Mg Tablet) 40 mg PO DAILY PRN PRN Reason: WATER PILL [facility] 800 Mg [facility] Admin: 04/14/20 10:54 Dose: 800 mg Documented by: Glucagon (Glucagon 1 Mg/Ml Syringe) 1 mg IM .X1 PRN PRN Reason: Hypoglycemia Guaifenesin (Guaifenesin 1,200 Mg Tablet) 1,200 mg PO BID [facility] Last Admin: 04/14/20 10:54 Dose: 1,200 mg Documented by: Hydralazine HCl (Hydralazine 20 Mg/Ml Vial) 5 mg IV Q4H PRN PRN PRN Reason: SBP > 160 Remdesivir 100 mg/ Sodium (Chloride) 250 mls @ 125 mls/hr IV Q24H [facility] Stop: 04/15/20 23:59 Last Infusion: 04/14/20 01:11 Dose: Infused Documented by: Sodium Chloride () 250 mls @ 15 mls/hr IV .[id number] PRN PRN Reason: Additional IVPB Infusion Insulin Human Lispro (Insulin Lispro 100 Unit/Ml Insuln.Pen) 0 unit SC ACHS [facility]; Protocol Last Admin: 04/14/20 07:36 Dose: Not Given Documented by: Insulin Lispro Protam/Lispro Human (Insulin Human 75/25 [place]) 60 unit SC BREAKFAST [facility] Last Admin: 04/14/20 10:56 Dose: 60 u Documented by: Insulin Lispro Protam/Lispro Human (Insulin Human 75/25 [place]) 85 unit SC DINNER [facility] Last Admin: 04/13/20 17:00 Dose: 85 units Documented by: Isosorbide Mononitrate (Isosorbide Mononitrate 30 Mg Tablet) 30 mg PO DAILY [facility] Last Admin: 04/14/20 10:54 Dose: 30 mg Documented by: Loperamide HCl (Loperamide 2 Mg Capsule) 2 mg PO Q4H PRN PRN PRN Reason: Diarrhea Last Admin: 04/13/20 08:59 Dose: 2 mg Documented by: Losartan Potassium (Losartan Potassium 100 Mg Tablet) 100 mg PO QHS [facility] Last Admin: 04/13/20 22:04 Dose: 100 mg Documented by: Melatonin (Melatonin 10 Mg Tablet) 10 mg PO QHS PRN PRN Reason: INSOMNIA Last Admin: 04/12/20 22:50 Dose: 10 mg Documented by: Ondansetron HCl (Ondansetron 4 Mg/2 Ml Vial) 4 mg IV Q8H PRN PRN PRN Reason: NAUSEA/VOMITING Potassium Chloride (Potassium Chloride 20 Meq Tablet) 40 meq PO QHS [facility] Last Admin: 04/13/20 22:04 Dose: 40 meq Documented by: Pramipexole Dihydrochloride (Pramipexole Di-Hcl 0.5 Mg Tablet) 1.5 mg PO BID [facility] Last Admin: 04/14/20 10:53 Dose: 1.5 mg Documented by: Propranolol HCl (Propranolol La 60 Mg Capsule) 120 mg PO DAILY [facility] Last Admin: 04/14/20 10:53 Dose: 120 mg Documented by: Sodium Chloride (0.9% Saline Lock 10 Ml Syringe) 10 - 40 ml IV UD PRN PRN Reason: SALINE FLUSH Discharge Diet: No Restrictions Home Medications: Medications to take at Discharge Ropinirole HCl [Requip] 4 mg PO BID 02/23/13 losartan 100 mg tablet 100 mg PO QHS 02/28/17 propranolol 120 mg capsule,24 hr,extended release 120 mg PO QDAY 02/28/17 Acetaminophen [Tylenol] 1,000 mg PO Q6H PRN tab 03/01/19 albuterol sulfate 90 mcg/actuation aerosol inhaler 2 puff INHALATION Q6H PRN #18 g 07/22/19 isosorbide mononitrate 30 mg tablet,extended release 24 hr 30 mg PO DAILY #90 tab 10/11/19 albuterol sulfate 2.5 mg INHALATION Q4H PRN #180 ml 12/01/19 furosemide 40 mg tablet 40 mg PO DAILY PRN tab 01/06/20 gabapentin 800 mg tablet 800 mg PO BID tab 01/06/20 hydrochlorothiazide 25 mg tablet 25 mg PO DAILY #90 tab 01/06/20 insulin lispro protamine-lispro 100 unit/mL (75-25) subcutaneous pen 60 unit SUBCUT BREAKFAST ml 01/06/20 insulin lispro protamine-lispro 100 unit/mL (75-25) subcutaneous pen 85 unit SUBCUT DINNER ml 01/06/20 melatonin 10 mg sublingual tablet 10 mg PO QHS PRN tab 01/06/20 potassium chloride 20 mEq tablet,extended release(part/cryst) 40 meq PO QHS tab 01/20/20 Dexamethasone [Decadron] 6 mg PO DAILY #6 tab 04/14/20 Following Prescriptions Were Given to Patient: Dexamethasone [Decadron] 6 mg PO DAILY #6 tab Transmission Status: Pending to [facility] Primary Care Physician: Kaz Cervantes DO [Primary Care Provider] - Within 2 Weeks Disposition: Home with Home Health Minutes spent on discharge:: 28 Patient Condition:: Fair Medical Necessity - Tobacco Use Smoking Status: Never smoker Meaningful Use Info Meaningful Use Diagnoses (Choose all that apply): None applicable Inpatient E&M: 56602 Disch Hosp
[2020-04-14] MEDS: Insulin Lispro 100 UNIT/ML INSULN.PEN SC (16:34)
[2020-04-14] MEDS: Insulin Human 75/25 Kwickpen 85 UNIT SC (16:35)
[2020-04-14 17:40] LABS: Bedside Glucose 202 mg/dL (70-110)
--- NOTE | 2020-04-17 14:44 | CASEMGMT ---
CANDACE CM DC Call DC Date: 04/14/20 DC Diagnosis: COVID-19 DC Disposition: Home with [facility] Call to Mery Lo. Patient had start of care today-transition of care to [facility]. Aquilino ELLIS RN AC
--- NOTE | 2020-04-20 12:45 | CASEMGMT ---
Social Work Follow up Call: SW received a message from Eveline at [facility] stating they have attempted to call pt three times for assessment of Passport program. Pt does not answer her phone and does not return phone calls. This SW placed call to pt with no answer and VM left requesting return home. Per request of Eveline, pt address provided so information about Passport program can be mailed to the patient. RICHARD Beckford
== END 2020-04-14 18:00 | disposition home health service (06) | DRG 177 ==
LOC: ED 19:17 → ICU 21:17 → MS2 04-13 13:01
PROVIDERS: Admitting Provider Hospitalist; Emergency Provider Emergency Medicine; PCP Family Medicine
DX: U07.1 COVID-19 (principal); J12.82 Pneumonia due to coronavirus disease 2019; J44.0 Chronic obstructive pulmonary disease with (acute) lower respiratory infection; Z68.41 Body mass index [BMI] 40.0-44.9, adult; I27.82 Chronic pulmonary embolism; R09.02 Hypoxemia; E87.6 Hypokalemia; E83.42 Hypomagnesemia; I25.10 Atherosclerotic heart disease of native coronary artery without angina pectoris; E11.65 Type 2 diabetes mellitus with hyperglycemia; E11.42 Type 2 diabetes mellitus with diabetic polyneuropathy; I10 Essential (primary) hypertension; E78.5 Hyperlipidemia, unspecified; K58.9 Irritable bowel syndrome, unspecified; G25.81 Restless legs syndrome; M62.838 Other muscle spasm; R29.6 Repeated falls; K21.9 Gastro-esophageal reflux disease without esophagitis; G47.33 Obstructive sleep apnea (adult) (pediatric); F32.9 Major depressive disorder, single episode, unspecified; F41.9 Anxiety disorder, unspecified; E66.01 Morbid (severe) obesity due to excess calories; Z79.4 Long term (current) use of insulin; Z79.899 Other long term (current) drug therapy
CPT/HCPCS: 36415; 71045; 71275; 80048; 80053; 80076; 82962; 83735; 84145; 84484; 85025; 85379; 85610; 87426; 87493; 87635; 93005; 94640; 94667; 97110; 97116; 97162; 97166; 97530; 97535; 97802; 99251; 99285; J7030; J7050; Q9967; A4216; G0463; U0002

== ENCOUNTER → 2020-06-20 13:46 | Outpatient (CLI) | payer MEDICARE, SELFPAY ==
[2020-06-01 13:13] VITALS: BMI 40.8
[2020-06-20 15:49] LABS: Vitamin B12 374 pg/mL (211-911)
[2020-06-20 15:54] LABS: Hemoglobin A1c 7.3 % (3.8-5.6)
[2020-06-20 15:57] LABS: Rheumatoid Factor < 10.0 IU/mL (<15); Thyroid Stim Hormone (TSH) 2.87 uIU/mL (0.358-3.74)
[2020-06-28 04:07] LABS: Immunoglobulin A 315 mg/dL (87-352); Immunoglobulin G 1169 mg/dL (586-1602); Immunoglobulin M 34 mg/dL (26-217); PROEL- Albumin 3.4 g/dL (2.9-4.4); PROEL- Alpha-1 Globulin 0.3 g/dL (0.0-0.4); PROEL- Alpha-2 Globulin 0.9 g/dL (0.4-1.0); PROEL- Beta Globulin 1.1 g/dL (0.7-1.3); PROEL- Gamma Globulin 1.2 g/dL (0.4-1.8); PROEL- Globulin, Total 3.5 g/dL (2.2-3.9); PROEL- TOTAL PROTEIN 6.9 g/dL (6.0-8.5)
[2020-06-28 13:37] LABS: VITAMIN B6 7.6 ug/L (2.0-32.8)
== END ==
PROVIDERS: PCP Family Medicine; Referring Provider Psychiatry & Neurology Neurology; Visit Provider Psychiatry & Neurology Neurology
DX: G62.9 Polyneuropathy, unspecified (principal); E11.69 Type 2 diabetes mellitus with other specified complication
CPT/HCPCS: 82607; 82746; 82784; 83036; 83921; 84165; 84207; 84443; 86235; 86334; 86431

== ENCOUNTER → 2020-06-29 12:48 | Outpatient (CLI) | payer MEDICARE, SELFPAY ==
[2020-06-01 13:13] VITALS: BMI 40.8
--- NOTE | 2020-06-30 08:45 | PFT ---
INTRODUCTION: The patient is a 70-year-old female that presents for pulmonary function studies secondary to a diagnosis of COPD. Respiratory therapy reports good patient effort. Bronchodilators were used during testing. INTERPRETATION: Forced expiration spirometry demonstrates the presence of a severe large airways obstructive ventilatory defect. There was no significant response to aerosolized bronchodilators. Spirograms are of good quality and plateau gradually indicating slow emptying of the lungs. Body plethysmography was performed and reveals a decreased TLC to 3.25 L, 67% of predicted, indicative of a moderate restrictive ventilatory impairment. The remainder of the lung volumes are symmetrically reduced. Diffusing capacity by single breath CO is reduced at 49% of predicted. When compared to previous pulmonary function studies from February 2018 there has been a decrease in TLC by 53% and decrease in diffusing capacity by 20%. IMPRESSION: Irreversible severe mixed ventilatory defect with symmetric reduction in diffusing capacity. There has been significant worsening in the patient's TLC and DLCO since 2018, as noted above.
== END ==
PROVIDERS: PCP Family Medicine; Referring Provider Nurse Practitioner Acute Care; Visit Provider Nurse Practitioner Acute Care
DX: J44.9 Chronic obstructive pulmonary disease, unspecified (principal)
CPT/HCPCS: 94060; 94726; 94729

== ENCOUNTER → 2020-07-05 12:15 | Outpatient (CLI) | payer MEDICARE, SELFPAY ==
[2020-06-01 13:13] VITALS: BMI 40.8
[2020-07-05 12:30] VITALS: PULSE 59; PULSE 67; PULSE 68; PULSE 70; PULSE 71; PULSE 91; PULSE 92; O2SAT 86; O2SAT 88; O2SAT 90; O2SAT 92; O2SAT 93; O2SAT 94; O2SAT 95
--- NOTE | 2020-07-05 12:51 | CPS ---
pt used the wheel chair to push while walking for test. pt arrived on room air sats 93%. At 2 min sats dropped to 86%. placed on 2L walked a few more laps and sats stayed above 90%.
--- NOTE | 2020-07-06 05:56 | PCM.PSN.6M ---
PSN 6 Minute Walk Test - 6 Minute Walk Test 6 Minute Walk Test: 6 Minute Walk Test PSN:6-Minute Walk Test Start: 07/05/20 12:47 Freq: Status: Active Protocol: [id number] Document 07/05/20 12:30 EW (Rec: 07/05/20 12:55 EW [id number]) 6 Minute Walk Test Date Performed 07/05/20 Time Performed 12:30 Height 5 ft 4 in Weight: 111.13 kg Weight in Pounds 245.[address]: Ira Matute LABORATORY TECHNICIAN Assistive device used: Walker Pre-test Oxygen Delivery Method Room Air Pulse Ox (%) 93 Pulse Rate (60-100 beats/min) 59 L Dyspnea Geovani Scale (0-10) 0 Exertion Geovani Scale (6-20) 8 1st minute Oxygen Delivery Method Room Air Pulse Ox (%) 88 Pulse Rate (60-100 beats/min) 92 2nd minute Oxygen Delivery Method Room Air Pulse Ox (%) 86 Pulse Rate (60-100 beats/min) 91 3rd minute Oxygen Flow Rate (L/min) (L/min) 2 Oxygen Delivery Method Nasal Cannula Pulse Ox (%) 95 Pulse Rate (60-100 beats/min) 67 4th minute Oxygen Flow Rate (L/min) (L/min) 2 Oxygen Delivery Method Nasal Cannula Pulse Ox (%) 92 Pulse Rate (60-100 beats/min) 70 5th minute Oxygen Flow Rate (L/min) (L/min) 2 Oxygen Delivery Method Nasal Cannula Pulse Ox (%) 90 Pulse Rate (60-100 beats/min) 71 6th minute Oxygen Flow Rate (L/min) (L/min) 2 Oxygen Delivery Method Nasal Cannula Pulse Ox (%) 90 Pulse Rate (60-100 beats/min) 71 Post-test Oxygen Flow Rate (L/min) (L/min) 2 Oxygen Delivery Method Nasal Cannula Pulse Ox (%) 94 Pulse Rate (60-100 beats/min) 68 Dyspnea Geovani Scale (0-10) 3 Exertion Geovani Scale (6-20) 14 Full Laps Walked 5 Partial Lap, Number of Tiles Walked 0 Total Distance Walked (ft) 295 07/05/20 12:51 Cardiopulmonary Services by Michelle Daily pt used the wheel chair to push while walking for test. pt arrived on room air sats 93%. At 2 min sats dropped to 86%. placed on 2L walked a few more laps and sats stayed above 90%. Initialized on 07/05/20 12:51 - END OF NOTE - Interpretation Interpretation: The patient was able to saturate 93% on room air, but desaturated to 86% in the second minute. Patient was then placed on 2 L nasal cannula to complete ambulation. In total, the patient traveled 295 feet over the course of 6 minutes with the assistance of a wheelchair. These findings are consistent with a respiratory limitation exercise tolerance. - Recommendations Recommendations: The patient requires no supplemental oxygen at rest, but should be using 2 L nasal cannula with any exertion.
== END ==
PROVIDERS: PCP Family Medicine; Referring Provider Nurse Practitioner Acute Care; Visit Provider Nurse Practitioner Acute Care
DX: J44.9 Chronic obstructive pulmonary disease, unspecified (principal)
CPT/HCPCS: 94618

== ENCOUNTER → 2020-07-13 12:40 | Outpatient (CLI) | payer MEDICARE, SELFPAY ==
[2020-06-01 13:13] VITALS: BMI 40.8
[2020-07-06 13:23] VITALS: BMI 42.7
== END ==
PROVIDERS: PCP Family Medicine; Referring Provider Nurse Practitioner Acute Care; Visit Provider Nurse Practitioner Acute Care
DX: G47.33 Obstructive sleep apnea (adult) (pediatric) (principal)
CPT/HCPCS: 98960; G0463

== ENCOUNTER → 2020-08-11 12:14 | Outpatient (CLI) | payer MEDICARE, SELFPAY ==
[2020-08-11 11:32] VITALS: BMI 43.6
[2020-08-11 13:31] LABS: BNP,B-Type NATRIURETIC PEPTIDE 106.7 pg/mL (0-100)
[2020-08-11 13:33] LABS: Anion Gap 4 (5-15); BUN 18 mg/dL (7-18); BUN/Creat Ratio 19.5 RATIO (10-20); Calcium,Total 9.3 mg/dL (8.5-10.1); Chloride 102 mmol/L (98-107); Creatinine, Serum 0.92 mg/dL (0.55-1.02); EST Glomerular Filtration Rate 64 mL/min (>60); Est Glom Filt Rate - Afr Amer 77 mL/min (>60); Glucose 156 mg/dL (74-106); Potassium 3.4 mmol/L (3.5-5.1); Sodium Level 138 mmol/L (136-145)
== END ==
PROVIDERS: PCP Family Medicine; Referring Provider Nurse Practitioner Family; Visit Provider Nurse Practitioner Family
DX: R06.02 Shortness of breath (principal); I25.10 Atherosclerotic heart disease of native coronary artery without angina pectoris; R06.09 Other forms of dyspnea
CPT/HCPCS: 36415; 80048; 83880

== ENCOUNTER → 2020-08-17 13:48 | Outpatient (CLI) | payer MEDICARE, SELFPAY ==
[2020-08-11 11:32] VITALS: BMI 43.6
--- NOTE | 2020-08-17 13:51 | ECHOCS_ITS ---
Reason For Study: SOB, CAD Procedure This was a 2D Doppler, Color Flow transthoracic echocardiogram. The study was technically difficult. Contrast injection was performed. Exam performed in department. Left Ventricle Based upon the 2D echocardiographic and contrast enhanced images obtained there appears to be grossly normal left ventricular size, wall motion, and systolic function. The estimated ejection fraction is 55 %. There is evidence of diastolic dysfunction. Right Ventricle Normal RV size. Normal systolic function. Atria Normal left atrium. Normal right atrium. No doppler evidence for ASD. Mitral Valve There is no mitral annular calcification. Normal mitral valve. Trivial mitral valve insufficiency. Tricuspid Valve Normal tricuspid valve. Trivial tricuspid valve insufficiency. Right ventricular systolic pressure estimated to be 45 mmHg. Aortic Valve Trisinus/trileaflet aortic valve. Mild focal aortic valve calcification. Pulmonic Valve The pulmonic valve is not well visualized. Trivial pulmonic valve insufficiency. Great Vessels Mildly dilated aortic root. Pericardium/Pleural No pericardial effusion. Medication 22 gauge I.V. with prn adaptor inserted into right arm. Diluted definity 4ml given slow IV push to enhance endocardial definition. MMode/2D Measurements & Calculations LVIDd: 3.6 cm IVSd: 1.2 cm Ao root diam: 4.1 cm LVIDs: 2.5 cm LVPWd: 1.2 cm RVDd: 4.4 cm FS: 29.7 % LAV(MOD-bp): 58.1 ml LVAd ap4: 33.3 cm2 LVAd ap2: 33.7 cm2 LAV(MOD-bp) Indexed: 26.5 ml/m2 LVLd ap4: 8.4 cm LVLd ap2: 7.8 cm LAV(MOD-sp2): 60.0 ml EDV(MOD-sp4): 109.9 ml EDV(MOD-sp2): 118.1 ml LAV(MOD-sp4): 56.2 ml EDV(sp4-el): 112.6 ml EDV(sp2-el): 122.6 ml LVAs ap4: 19.0 cm2 LVAs ap2: 19.6 cm2 LVLs ap4: 6.7 cm LVLs ap2: 6.1 cm ESV(MOD-sp4): 43.4 ml ESV(MOD-sp2): 49.9 ml ESV(sp4-el): 45.8 ml ESV(sp2-el): 53.4 ml EF(MOD-sp4): 60.5 % EF(MOD-sp2): 57.8 % EF(sp4-el): 59.4 % SV(MOD-sp4): 66.5 ml SV(MOD-sp2): 68.3 ml SV(sp4-el): 66.9 ml LA A4 area: 19.2 cm2 RA A4 area: 15.6 cm2 Time Measurements MV dec time: 0.23 sec Doppler Measurements & Calculations MV E max ray: 82.5 cm/sec Lat Peak E' Ray: 7.0 cm/sec Med Peak E' Ray: 3.9 cm/sec MV A max ray: 120.0 cm/sec E/E' lat: 11.7 E/E' med: 21.3 MV E/A: 0.69 Ao V2 max: 123.2 cm/sec LV V1 max: 101.3 cm/sec PA V2 max: 114.3 cm/sec Ao max P.1 mmHg LV V1 max P.1 mmHg TR max ray: 324.4 cm/sec TR max P.3 mmHg ECHO/Echo Complete W/ Contrast Interpretation Summary The study was technically difficult. Contrast injection was performed. Based upon the 2D echocardiographic and contrast enhanced images obtained there appears to be grossly normal left ventricular size, wall motion, and systolic function. The estimated ejection fraction is 55 %. Trivial mitral valve insufficiency. Trivial tricuspid valve insufficiency. Mild focal aortic valve calcification. Trivial pulmonic valve insufficiency. Mildly dilated aortic root. Right ventricular systolic pressure estimated to be 45 mmHg. There is evidence of diastolic dysfunction. Ordering Physician: Romaine Voss/Mohan Sepulveda Referring Physician: FREDERICK RODRIGUES Performed By: Negar Boateng, RDCS, RVT
== END ==
PROVIDERS: PCP Family Medicine; Referring Provider Nurse Practitioner Family; Visit Provider Nurse Practitioner Family
DX: G47.33 Obstructive sleep apnea (adult) (pediatric) (principal); R06.02 Shortness of breath
CPT/HCPCS: 93306; Q9957; A4216; C8929; J3490

== ENCOUNTER 2020-09-11 08:55 | Day surgery (SDC) | payer MEDICARE, SELFPAY ==
[2020-08-11 11:32] VITALS: BMI 43.6
[2020-09-11 09:42] VITALS: BP 186/74; PULSE 73; RESP 16; TEMP 36.1; O2SAT 97; BMI 44.4
[2020-09-11] MEDS: Lactated Ringers 1,000 ML 100 ML IV (09:58)
[2020-09-11 10:10] LABS: Bedside Glucose 238 mg/dL (70-110)
--- NOTE | 2020-09-11 10:24 | RAD_ITS ---
PROCEDURE: Caudal epidural. DATE OF EXAMINATION: 09/11/2020. INDICATION: Female, 70 years old. Low back pain FLUOROSCOPY TIME (if supplied): (10 seconds) minutes/seconds. 3 images were obtained. RAD/Fluor Guidance for Spine Inj IMPRESSION: Intraoperative imaging provided for caudal epidural. Electronically Signed: El Mora MD at 9:45 EDT , Service support ,
[2020-09-11] MEDS: MethylPREDNISolone Acetate 80 MG/ML Vial (10:27)
[2020-09-11] MEDS: 0.9% Normal Saline (Pres. free 10 ML Vial (10:27)
[2020-09-11] MEDS: Bupivacaine 0.25% 30 ML Vial (10:27)
[2020-09-11] MEDS: Lidocaine 1% (5 ml sdv) 5 ML Vial (10:30)
[2020-09-11 10:35] VITALS: BP 166/82; BP 186/74; PULSE 68; RESP 16; TEMP 36.2; O2SAT 95
[2020-09-11 10:40] VITALS: BP 146/87; BP 186/74; PULSE 67; RESP 16; O2SAT 98
[2020-09-11 10:45] VITALS: BP 164/80; BP 186/74; PULSE 67; RESP 16; O2SAT 93
[2020-09-11 10:50] VITALS: BP 173/68; BP 186/74; PULSE 67; RESP 16; TEMP 36.3; O2SAT 95
[2020-09-11 11:23] VITALS: BP 186/74
--- NOTE | 2020-09-11 16:26 | OP.PCM_ITS ---
Report of Operation Date of Procedure: 09/11/20 Pre-Operative Diagnosis: Lumbosacral radiculopathy, lumbosacral degenerative di sc disease, lumbosacral spinal stenosis Post-Operative Diagnosis: Lumbosacral radiculopathy, lumbosacral degenerative disc disease, lumbosacral spinal stenosis Surgery/Procedure Performed:: Caudal epidural steroid injection under fluoroscopic guidance Type of Anesthesia: MAC Estimated Blood Loss (mL): Minimal Description of Procedure: DESCRIPTION OF PROCEDURE: History and physical of today was reviewed. Risks and benefits of the procedure were explained. The patient understood and agreed to proceed. Informed consent was obtained. IV inserted per routine protocol. The patient was taken to the operating room and placed in the prone position with a pillow positioned underneath the abdomen. The lower back and tailbone area was prepped and draped in a sterile fashion using iodine x3. Under fluoroscopy guidance on a lateral view, the caudal space was identified. The skin and subcutaneous tissue was anesthetized with approximately 3 mL of 1% lidocaine using a 25-gauge regular needle. Under direct visualization with fluoroscopy, using a 22-gauge 3-1/2-inch spinal needle, the needle was advanced via the skin through the sacral hiatus. The tip of the needle was passed through the sacrococcygeal ligament and advanced to approximately S4 area. After negative aspiration of blood or CSF, a total of 3 mL of contrast was injected to confirm correct placement of the needle as well as cephalad spread. The spread was followed to approximately L5 area. After confirmation on AP as well as lateral view and repeated negative aspiration, a total of 15 mL of preservative-free 0.125% Marcaine with 80 mg of Depo-Medrol was injected easily. The needle was then removed intact. The patient experienced no sign or symptoms of intrathecal or intravascular injection. The patient experienced no paresthesia. The procedure was completed without any apparent difficulty or any complications. The patient appeared to tolerate it well. ASSESSMENT AND PLAN: This is a 70-year-old female with lumbosacral radiculopathy, lumbosacral degenerative disc disease, lumbosacral spinal stenosis status post caudal epidural steroid injection, patient will continue her current medications, patient will follow in approximately 2 weeks for reevaluation. Complications None
== END 2020-09-11 11:24 | disposition home or self-care (01) ==
LOC: SDC 08:56 → AC 09:11
PROVIDERS: PCP Family Medicine; Referring Provider Anesthesiology Pain Medicine; Visit Provider Anesthesiology Pain Medicine
PROC: 3E0S3BZ Introduction of Anesthetic Agent into Epidural Space, Percutaneous Approach (ICD-10-PCS; CPT 62282; principal; 2020-09-11 10:25)
DX: M51.17 Intervertebral disc disorders with radiculopathy, lumbosacral region (principal); M47.27 Other spondylosis with radiculopathy, lumbosacral region; M48.07 Spinal stenosis, lumbosacral region; M46.1 Sacroiliitis, not elsewhere classified; M96.1 Postlaminectomy syndrome, not elsewhere classified; M53.3 Sacrococcygeal disorders, not elsewhere classified; E11.9 Type 2 diabetes mellitus without complications; I10 Essential (primary) hypertension; J45.909 Unspecified asthma, uncomplicated; M19.90 Unspecified osteoarthritis, unspecified site; F32.9 Major depressive disorder, single episode, unspecified; F41.9 Anxiety disorder, unspecified; Z79.891 Long term (current) use of opiate analgesic; Z79.899 Other long term (current) drug therapy
CPT/HCPCS: 62323; 64483; 77003; 82962; J7120; J3490

== ENCOUNTER 2020-12-25 10:33 | Day surgery (SDC) | payer MEDICARE, SELFPAY ==
--- NOTE | 2020-12-21 14:16 | PCM.HP.BLA ---
History and Physical Date of Admission: 12/25/20 Chief Complaint: Discuss SCS History of Present Illness: This is a 70 Y/O Female who was seen and evaluated at our office today as a follow up. Pain: lower back,lasha legs Quality: constant varies in intensity Region: pain in the center of mid-lower back and has pain in bilateral calves from the knees down. Severity: aching,occasional burning,stabbing,numbness,weakness Timing: Aggravated by: walking Relieved by: sitting Pain score (out of 10): 9/10 ambulation Other info: Patient is here for a follow up.Reports pain in the lower back, states her legs have been bothering her when she stands too long or when she gets up and starts walking.Patient reports swelling in her legs but says the compression hose make her to warm. Is here to further discuss the SCS. Review of Systems: Patient denies any fever, chills, headache, change in weight without trying, vision or hearing problems. No cp, pnd, orthopnea but gets some SOB with excertion.They note no lumps or swollen glands, no new rashes, changing moles, or change in bowel or bladder function.Mood has been good overall. 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 drugs: none Allergies: environmental, mold, cats/dogs, trees/grass Medications: 1) aspirin 81 mg oral tablet, One tablet daily 2) citalopram 20 mg oral tablet, One tablet at night 3) DULoxetine 30 mg oral delayed release capsule, Take 1 tablet by mouth 2 times a Day 4) Eligen B12 1000 mcg oral tablet, 2 pills a day 5) gabapentin 800 mg oral tablet, Take 1 tablet by mouth 2 times a Day 6) hydroCHLOROthiazide 12.5 mg oral capsule, Take 1 tablet by mouth once daily 7) isosorbide dinitrate 30 mg oral tablet, Take 1 tablet by mouth once daily 8) Klor-Con M20 oral tablet, extended release, One tablet daily 9) losartan 100 mg oral tablet, One tablet at night 10) Metoprolol Tartrate 100 mg oral tablet, Take 1 tablet by mouth once daily 11) NovoLIN 70/30 subcutaneous suspension, as directed 12) omeprazole 40 mg oral delayed release capsule, One tablet daily 13) rOPINIRole 4 mg oral tablet, Take 1 tablet by mouth 2 times a Day 14) Tylenol Extra Strength 500 mg oral tablet, Take 1 tablet by mouth 4 Times a Day Physical Examination: Wt: 260 lb Ht/Ln: 64 in BMI: 44.6 BP: 166/97 Pulse: 83 RR: 16 Temp: 97.8F Pain: 6 Well nourished and well developed in no acute distress. Affect is flat. Mucosa pink and moist. Chest is unlabored breathing. Neck is supple without significant lymphadenopathy or thyromegaly. Abdomen obese, soft & non-tender. No HSM or masses appreciated. Extremities show no cyanosis, clubbing, 2+ pedal edema worse on the left. Gait is Antalgic with a walker. Decreased ROM of left hip due to pain.. Bilateral lumbar facet loading is positive worse on the right. Lumbar paraspinal muscle tenderness worse on the right. Lumbar ROM is limited due to pain worse with extension. SLR is negative. Positive OUMOU test. Sacroiliac Joint Tenderness on palpation worse on the left. Positive surgical scar that is well healed. Motor and sensory exam is unchanged. 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 OARRS was reviewed today. UDS was reviewed, pt appears compliant SOAPP score is 5 Pt had her psych eval, will obtain report, was told she is a good candidate MRI of the lumbar spine was reviewed with the pt today and they appear to understand. Life style modifications were also discussed today and the pt appears to understand. Reviewed with the pt today our opioid agreement and they appear to understand. PEG was reviewed today. Pt was advised not to consume alcohol with his medications due to possible severe interaction, pt appears to understand. The pt has been counseled on safe storage and disposal of opioids. Weight loss was recommended today through diet and exercise. There are no signs of diversion or addiction with the pt, there is also no signs of abuse or misuse, continues to do well with their medications without any side effects, we will continue monitoring the pt closely. Risks and benefits of the above meds were discussed with the pt and they appear to understand. The common side effects of the medications were discussed and all of their questions and concerns were answered and they appear to understand Discussed natural and expected course of this diagnosis and need to alert me if symptoms do not follow expected course, or if any worse. Pt is to continue with her PT and HEP. Pt has tried multiple modalities with no success, we will schedule the pt for a diagnostic 2 thoracic lead SCS trial under fluoroscopy We have discussed the risks, benefits as well as alternatives of the procedure and the patient appears to understand and would like to proceed with the above plan. The above plan was discussed today with the pt and her in details and they appear to understand and agrees to continue with the plan.
[2020-12-25] VITALS (10 sets, daily range): BP systolic 126–166; BP diastolic 58–76; PULSE 60–70; RESP 16–20; TEMP 36.3–36.7; O2SAT 93–99; BMI 44.9
[2020-12-25 11:25] LABS: Bedside Glucose 124 mg/dL (70-110)
[2020-12-25] MEDS: Lactated Ringers 1,000 ML 100 ML IV ×2 (11:45→14:47)
[2020-12-25] MEDS: Cefazolin 2 GM in 0.9% Normal Saline 100 ML IV (11:59)
--- NOTE | 2020-12-25 12:20 | RAD_ITS ---
INDICATION: THORACIC LEAD SPINAL CORD STIMULATOR EXAMINATION/TECHNIQUE: X-RAY - IR Unlisted Procedure, Spine Total Fluoroscopic Time: 6:19 minutes. Fluoroscopic Images: 12 images. Fluoroscopy Dose: 323.75 mGy COMPARISON: 04/11/2020. FINDINGS: 11 spot fluoroscopic images were obtained intra-operatively spinal cord stimulator leads advanced through the upper lumbar spine, final repositioning visualized with leads at the level of the inferior endplate of T8 extending to the inferior endplate of the T10 vertebral body. No radiologist was present for the procedure, please refer to operative report for details. IMPRESSION: Please refer to operative report for details. Electronically Signed: Rasta Bneson MD at 16:09 EDT Tel , Service support , RAD/Thoracic Spine 3 Views
[2020-12-25] MEDS: Lidocaine 2% (20 ml mdv) 20 ML Vial (13:30)
[2020-12-25] MEDS: Bupivacaine 0.25% 30 ML Vial (13:30)
[2020-12-25] MEDS: Bacitracin 500 UNITS/GM PACKET (13:44)
[2020-12-25 14:46] LABS: Bedside Glucose 125 mg/dL (70-110)
--- NOTE | 2020-12-25 15:58 | OP.PCM_ITS ---
Report of Operation Date of Procedure: 12/25/20 Description of Surgical Findings:: Pre-Operative Diagnosis: Lumbosacral radiculopathy, lumbosacral degenerative disc disease, lumbosacral spinal stenosis, postlaminectomy syndrome of the lumbar spine Post-Operative Diagnosis: Lumbosacral radiculopathy, lumbosacral degenerative disc disease, lumbosacral spinal stenosis, postlaminectomy syndrome of the lumbar spine Surgery/Procedure Performed:: 1. Spinal cord stimulator thoracolumbar leads placement x2 #2 spinal cord stimulator Medtronic intellus adaptive stim generator placement #3 spinal cord stimulator generator pocket creation at the left gluteal region #4 spinal cord stimulator complex programming, 5-in traoperative fluoroscopic interpretation Description of Surgical Findings:: ANESTHESIA: MAC COMPLICATIONS: None BLOOD LOSS: Minimal Implanted device: Spinal cord stimulator lead [id number] lot number [id number], lead #2 [id number] lot number [id number] Medtronic spinal cord stimulator generator intellus serial number [id number] PROCEDURE IN DETAIL: History and physical today was reviewed. Risks and benefits of procedure explained. The patient understood, agreed to procedure, informed consent was obtained. IV inserted per routine protocol. The patient was taken to the operating room, placed in the prone position with a pillow positioned underneath the abdomen. A 2 g of Ancef IV piggyback was infused per anesthesia. The lower back and left gluteal area was prepped and draped in a sterile fashion using iodine x3 Ioban was placed. The C-arm was brought in position for AP view at the T12-L2 vertebral bodies under direct visualization fluoroscopy on a true AP view the T12-L2 interlaminar space was identified skin and subcutaneous tissue and size approximately 10 cc of a mix of 2% lidocaine and 0.25% Marcaine using a 25-gauge regular needle followed by a 25-gauge 3-1/2 inch spinal needle towards the interlaminar space at T12-L1, the skin and subcutaneous tissue were then anesthetized and using an 11-gauge blade was then taken down to the skin and subcutaneous tissue using a 14-gauge 5 inch Touhy needle provided by the [employer] kit the needle was passed through the skin towards the interlaminar space at T12-L1 and a paramedian approach the needle was then advanced under direct visualization fluoroscopy towards the interlaminar space at L2-3 [id number] technique was then carried to air towards the interlaminar space at T12-L1 once the tip of the needle was in the epidural space and loss of resistance was encountered to air and after confirmation of AP as well as oblique view of the spinal cord stimulator lead was then advanced under direct visualization fluoroscopy to be at the tip of the lead at T8 and the bottom of the lead around mid T10 after confirmation of AP as well as lateral view to confirm correct placement of the lead in the posterior compartment of the epidural space the previous procedure was then repeated to a level above at L1-2 interlaminar space, positive CSF, the needle was then removed and redirected after repeated confirmation with [id number]-cejbfugimc technique and confirmation on AP as well as lateral view , the second lead was then inserted under direct visualization with fluoroscopy to be at the mid T8 and mid T10 area the leads were were then connected to the external neurostimulator and patient was then awakened to confirm satisfactory coverage of the painful area once satisfactory coverage was then achieved the stylette of each needle was then removed and the skin and subcutaneous tissue on to the left of the paramedian needles was then taken anesthetized with a total of 10 cc of the previous mixture of 0.25% Marcaine and 2% lidocaine using a 25-gauge regular needle the incision was then taken down through the skin and subcutaneous tissue towards the fascia making sure hemostasis was then maintained via cautery, the spinal cord stimulator leads were then passed through the above incision and secured using the biwing and sutured down with a 2-0 silk to the fascia at that level the spinal cord stimulator leads were then tunneled via a tunneler provided by the [employer] kit towards the previously incised spinal cord stimulator battery at the left gluteal region skin and subcutaneous tissue were anesthetized with approximately 10 cc of a mix of 2% lidocaine and 0.25% Marcaine using a 25 gauge regular needle, skin and subcutaneous tissue was then taken down with the 11-gauge blade hemostasis was maintained with Bovie and direct pressure the incision was then taken down to the fascia and the battery was then secured with the 2-0 silk sutures that were the spinal cord stimulator leads the upper lead was then marked the new until spinal cord stimulator battery was then provided Via [employer] kit the battery was then reattached of the spinal cord stimulator make ensure that the top lead is attached to the top position from 0-7 electrodes and the bottom from 8-15 electrodes once impedance was then checked to be in the proper average number the intellus battery was then inserted into the pocket and impedance with when checked again the pocket was then inspected to confirm hemostasis in place,tyrx pouch and the intellus battery was then secured to the fascia using a 2-0 silk to the upper eyes of the battery confirming an upward writing of the intellus facing posterior, once complete confirmation the battery was then placed in the position and the the mid paramedian and the gluteal incisions were then closed primarily through a 3- 0 Vicryl in a running fashion followed by a 4-0 Vicryl to the skin, hemostasis was then maintained during the procedure the skin was then covered with a Steri-Strips and bacitracin patient was then returned into the supine position in a stable condition and returned to recovery in a stable condition patient experienced no signs or symptoms of intrathecal or intravascular injection patient experienced no paresthesia the procedure was completed without any apparent difficulty any complication the patient appeared to tolerate well, motor as well as sensory function was unchanged from prior to the procedure ESTIMATED BLOOD LOSS: Minimal less than 25 mL ASSESSMENT AND PLAN: This is a 70-year-old female with lumbosacral radiculopathy lumbosacral degenerative disc disease lumbosacral spinal stenosis, postlaminectomy syndrome of the lumbar spine status post 1. Spinal cord stimulator thoracolumbar leads placement x2 #2 spinal cord stimulator Medtronic intellus generator placement #3 spinal cord stimulator generator pocket creation at the left gluteal region #4 spinal cord stimulator simple programming, 5-intraoperative fluoroscopic interpretation patient will continue her current medications a prescription was provided to the patient Keflex 500 mg 1 p.o. every 8 hours for 7 days, Percocet 5-325 mg 1 p.o. every 6 hours for postoperative pain, postop instruction were given in writing to the patient and her as well as verbally and in writing, patient will follow approximately 1 week for reevaluation
== END 2020-12-25 16:11 | disposition home or self-care (01) ==
LOC: SDC 10:35 → AC 10:35
PROVIDERS: PCP Family Medicine; Referring Provider Anesthesiology Pain Medicine; Visit Provider Anesthesiology Pain Medicine
PROC: (CPT 63685; principal; 2020-12-25 12:05)
DX: M51.17 Intervertebral disc disorders with radiculopathy, lumbosacral region (principal); M47.27 Other spondylosis with radiculopathy, lumbosacral region; M48.07 Spinal stenosis, lumbosacral region; M46.1 Sacroiliitis, not elsewhere classified; M96.1 Postlaminectomy syndrome, not elsewhere classified; M43.10 Spondylolisthesis, site unspecified; I25.10 Atherosclerotic heart disease of native coronary artery without angina pectoris; E11.65 Type 2 diabetes mellitus with hyperglycemia; E11.42 Type 2 diabetes mellitus with diabetic polyneuropathy; J44.9 Chronic obstructive pulmonary disease, unspecified; I10 Essential (primary) hypertension; E78.5 Hyperlipidemia, unspecified; K58.9 Irritable bowel syndrome, unspecified; M19.90 Unspecified osteoarthritis, unspecified site; G47.33 Obstructive sleep apnea (adult) (pediatric); E66.01 Morbid (severe) obesity due to excess calories; Z79.891 Long term (current) use of opiate analgesic; Z79.82 Long term (current) use of aspirin; Z79.4 Long term (current) use of insulin; Z79.899 Other long term (current) drug therapy; Z86.711 Personal history of pulmonary embolism
CPT/HCPCS: 00300; 63650 ×2; 63685; 95972; 72072; 76000; 82962; C1778; C1820; J7120; J2405; J3490

== ENCOUNTER → 2021-02-01 11:53 | Outpatient (CLI) | payer MEDICARE, SELFPAY ==
--- NOTE | 2021-02-01 11:55 | RAD_ITS ---
STUDY: X-RAY XR Forearm 2 Views REASON FOR EXAM: Female, 70 years old. PAIN TECHNIQUE: XR Forearm 2 Views COMPARISON: None. FINDINGS: There is no demonstrated soft tissue swelling. Normal visualized radius. Normal visualized ulna. RAD/Forearm 2 Views IMPRESSION: Normal x-ray examination of the radius and ulna. Electronically Signed: Sigifredo Pollack MD at 20:02 EST , Service support ,
--- NOTE | 2021-02-01 11:55 | RAD_ITS ---
EXAM: XR RIGHT HUMERUS, 2 OR MORE VIEWS CLINICAL INDICATION: PERSISTANT PAIN/FALL TECHNIQUE: Frontal and lateral views of the right humerus. This report was created using [employer] report generation technology. COMPARISON: None. FINDINGS: BONES/JOINTS: There is periarticular soft tissue calcification around the humerus consistent with a calcific tendinitis. No acute fracture. No subluxation. Normal alignment. Preservation of the joint space. No sclerotic or destructive changes observed. SOFT TISSUES: Unremarkable. No soft tissue swelling or gas. No radiopaque foreign body. RAD/Humerus min 2 Views IMPRESSION: There is periarticular soft tissue calcification around the humerus consistent with a calcific tendinitis. Electronically Signed: Sigifredo Pollack MD at 20:02 EST , Service support ,
== END ==
PROVIDERS: PCP Family Medicine; Referring Provider Family Medicine; Visit Provider Family Medicine
DX: M79.601 Pain in right arm (principal)
CPT/HCPCS: 73060; 73090

== ENCOUNTER 2021-03-25 15:41 | Emergency (ER) | payer MEDICARE, SELFPAY ==
[2021-03-25 15:42] VITALS: BP 116/59; PULSE 66; RESP 16; TEMP 35.7; O2SAT 95; BMI 44.6
[2021-03-25 18:47] VITALS: BP 156/75; PULSE 63; O2SAT 95
[2021-03-25 20:00] VITALS: BP 145/67; PULSE 78; RESP 16; O2SAT 97
--- NOTE | 2021-03-25 20:47 | RAD_ITS ---
HISTORY: pain COMPARISON: None FINDINGS: # of images incl. paperwork: 4 XR Femur Min 2 Views: SOFT TISSUES: No radiodense soft tissue foreign body. Femoral atherosclerosis. OSSEOUS: No fracture. Normal hip and knee alignment mild tricompartment knee osteoarthritis. No aggressive osseous lesion. BONE MINERALIZATION: Unremarkable. RAD/Femur Min 2 Views IMPRESSION: No acute osseous finding. Diffuse peripheral atherosclerosis. at 2317 Reported and signed by: Xavier Pandey MD Electronically Signed: Xavier Pandey MD at 23:15 EST Tel , Service support ,
--- NOTE | 2021-03-25 20:47 | RAD_ITS ---
INDICATION: pain EXAMINATION/TECHNIQUE: X-RAY - XR Pelvis 1 or 2 Views COMPARISON: 03/25/2021. FINDINGS: No acute fracture or malalignment. No blastic or lytic lesions. Mild degenerative changes of the bilateral hips. The soft tissues are unremarkable. Placental changes of the lower lumbar spine. RAD/Pelvis 1 or 2 Views IMPRESSION: No acute radiographic abnormalities. Mild degenerative changes of the bilateral hips. Electronically Signed: Hugo Whatley MD at 21:44 EST Tel , Service support ,
--- NOTE | 2021-03-25 20:48 | ED.VIS.LOWEX ---
HPI History of Present Illness Chief Complaint: Lower Extremity Injury Narrative Narrative: 70-year-old female presenting with right hip and thigh pain. She states that this is been ongoing for a couple of weeks. She states she fell a couple of weeks ago injuring her shoulder. Since that time she has fallen again at home. She states she has problems with her right leg and has difficulty raising it up when she walks. Therefore she tripped over doors and small curbs. Patient states that her hip and right thigh continue to have pain. She saw her primary care physician who wrote her a slip for physical therapy however she did not go because her leg hurts. She denies any numbness or tingling. [facility] Medical History Abnormal echocardiogram JILL (acute kidney injury) Anxiety and depression Arthritis Asthma Asthma Atherosclerosis of [place] coronary artery of [place] heart without angina pectoris Atrial septal defect Back pain Cardiology follow-up encounter Carpal tunnel syndrome Chronic bronchitis COPD (chronic obstructive pulmonary disease) COVID-19 determined by clinical diagnostic criteria Cystitis, acute DDD (degenerative disc disease), cervical Dehydration Dehydration with hyponatremia Diabetic peripheral neuropathy Dietary restriction Difficulty swallowing Disequilibrium DM (diabetes mellitus), type 2, uncontrolled DM (diabetes mellitus), type 2, uncontrolled Dyspnea on exertion Edema Essential hypertension Gastric reflux Gastroenteritis GERD (gastroesophageal reflux disease) History of echocardiogram (~01/2017) History of echocardiogram History of edema History of IBS History of nuclear stress test (~10/2016) History of stress test Hx of transesophageal echocardiography (MARIELLA) for monitoring Hyperlipidemia Hypertension Hypokalemia IBS (irritable bowel syndrome) Insomnia Insulin dependent diabetes mellitus Morbid obesity Non-smoker Obesity (BMI 35.0-39.9 without comorbidity) On home oxygen therapy SHANNON (obstructive sleep apnea) Pulmonary emboli Pulmonary embolism Recurrent falls Restless leg syndrome Restless legs Seasonal allergies Sepsis Shortness of breath on exertion SOB (shortness of breath) Spinal stenosis of lumbar region Vitamin D deficiency Walker as ambulation aid Wears dentures Wears glasses Home Medications ropinirole 4 mg PO BID 02/23/13 [History Last Taken 12/25/20 06:00] losartan 100 mg tablet 100 mg PO QHS 02/28/17 [History Last Taken 03/24/17] isosorbide mononitrate 30 mg tablet,extended release 24 hr 30 mg PO DAILY #90 tab 10/11/19 [Rx Last Taken 12/25/20 06:00] albuterol sulfate 2.5 mg INHALATION Q4H PRN #180 ml 12/01/19 [Rx Last Taken Unknown] gabapentin 800 mg tablet 800 mg PO BID tab 01/06/20 [History Last Taken 12/25/20 06:00] hydrochlorothiazide 25 mg tablet 25 mg PO DAILY #90 tab 01/06/20 [Rx Last Taken Unknown] melatonin 10 mg sublingual tablet 10 mg PO QHS PRN tab 01/06/20 [History Last Taken Unknown] acetaminophen 500 mg tablet 1,000 mg PO Q6H PRN tab 07/06/20 [History Last Taken Unknown] aspirin 81 mg tablet,delayed release 81 mg PO DAILY 07/06/20 [History Last Taken Unknown] citalopram 40 mg tablet 40 mg PO QHS tablet 07/06/20 [History Last Taken Unknown] insulin human U-100 NPH-regulr 70-30 mix 100 unit/mL subcutaneous susp 70 unit SC QAM ml 07/06/20 [History Last Taken Unknown] insulin human U-100 NPH-regulr 70-30 mix 100 unit/mL subcutaneous susp 90 unit SC QPM ml 07/06/20 [History Last Taken Unknown] metoprolol succinate 100 mg tablet,extended release 24 hr 100 mg PO DAILY tablet 07/06/20 [History Last Taken 12/25/20 06:00] omeprazole 40 mg capsule,delayed release 40 mg PO DAILY cap 07/06/20 [History Last Taken 12/25/20 06:00] duloxetine 30 mg capsule,delayed release 30 mg PO BID cap 08/11/20 [History Last Taken 12/25/20 06:00] potassium chloride 20 mEq tablet,extended release(part/cryst) 40 meq PO QHS tab 08/14/20 [History Last Taken Unknown] albuterol sulfate 90 mcg/actuation aerosol inhaler 2 puff INHALATION Q6H PRN #18 g 12/11/20 [Rx Last Taken Unknown] Allergy/AdvReac Type Severity Reaction Status Date / Time rivaroxaban [From Xarelto] Allergy Intermediate Itching Verified 03/25/21 15:44 latex Allergy Itching Verified 03/25/21 15:44 pravastatin Allergy Unknown Verified 03/25/21 15:44 codeine AdvReac Severe Itching Verified 03/25/21 15:44 zolpidem [From Ambien] AdvReac Severe Sleep Verified 03/25/21 15:44 walking/talking environmental Allergy Other Uncoded 03/25/21 15:44 Family History Father Heart disease Hypertension CAD (coronary artery disease) Arthritis Mother Hypertension Asthma Diabetes Heart disease COPD (chronic obstructive pulmonary disease) Surgical History Bilateral carpal tunnel syndrome History of appendectomy History of back surgery (~2018) History of carpal tunnel surgery of left wrist History of cataract surgery History of cholecystectomy (~09/2011) History of laminectomy (~07/2015) History of laparoscopic cholecystectomy History of umbilical hernia repair (~08/2012) sciatic nerve cauterization Social History Smoking Status: Never smoker second hand exposure: No alcohol intake: current alcohol intake frequency: holidays/special occasions only Alcohol type: beer and hard liquor substance use type: does not use caffeine: Yes Type: coffee Number of servings: 1 and tea what type of physical activity do you participate in: other details: physical therapy frequency: 1-2 times per week seatbelt use: always do you feel safe at home: Yes ROS ROS ED Constitutional Constitutional ED: Denies chills, fever(s) or sweats Eyes Eyes: Denies blurry vision or change in vision ENT ENT ED: Denies ear pain or sore throat Cardiovascular Cardiovascular: Denies chest pain, palpitations or racing heartbeat Respiratory/Chest Respiratory/Chest: Denies cough, dyspnea or sputum Gastrointestinal Gastrointestinal: Denies abdominal pain, constipation, diarrhea, nausea or vomiting Genitourinary Genitourinary ED: Denies dysuria, hematuria or urinary frequency Musculoskeletal Musculoskeletal: Reports other Details: Right hip and thigh pain ; Denies arthralgias or neck pain Integumentary Denies abscess, Abrasions or rash Neurologic Neurologic: Denies headache(s), paresthesias or weakness Psychiatric Psychiatric: Denies anxiety, depression, suicidal ideation or suicidal thoughts Endocrine Endocrinology: Denies polydipsia or polyuria EXAM Physical Exam Const Vital Signs: 03/25/21 15:42 03/25/21 18:47 03/25/21 20:00 Temperature 96.3 F L Temperature Source Temporal Pulse Rate 66 63 78 Respiratory Rate 16 16 Blood Pressure 116/59 L 156/75 H 145/67 H Blood Pressure Mean 78 102 93 Pulse Ox 95 95 97 Oxygen Delivery Method Room Air Room Air Room Air 03/25/21 22:00 Temperature 98.9 F Temperature Source Temporal Pulse Rate 86 Respiratory Rate 18 Blood Pressure 134/84 H Blood Pressure Mean 100 Pulse Ox 97 Oxygen Delivery Method Room Air Positive obese General Appearance ED: NAD Nutritional Appearance: obese HEENT Reports moist mucous membranes normocephalic and atraumatic Neck full ROM Resp normal respiratory effort and clear to auscultation bilaterally Cardio regular rate and regular rhythm Extremity normal to inspection Extremity Narrative: Tenderness to palpation over the right lateral thigh. Negative logroll of the right hip. Patient complaining of pain to palpation over right greater trochanter. General Extremety ED: Negative for edema General Extremity: Negative for edema Neuro oriented x3 Sensorium / Orientation: alert MDM MDM MDM Narrative Medical decision making narrative: Patient presenting with hip pain after fall 2 weeks ago. He was ambulatory prior to coming to the emergency room. Patient states that her right hip is stiff. Patient is given a shot of Toradol and I obtained x-rays of the right femur and pelvis which showed no acute fracture or subluxation on my interpretation. Patient feeling improved. I did senior genetic counselor her she needs to follow-up for her physical therapy. At this point she stated that it was very expensive for her and asked why she does not go. I asked her to consult with her physician to see if there is any other options. Impression: 1. Right hip contusion Radiography Diagnostic Testing: Clinical Impression(s) from Imaging Studies Femur X-Ray 03/25/21 20:47 IMPRESSION: No acute osseous finding. Diffuse peripheral atherosclerosis. at [id number] Reported and signed by: Xavier Pandey MD Electronically Signed: Xavier Pandey MD at 23:15 EST Tel , Service support , Pelvis X-Ray 03/25/21 20:47 IMPRESSION: No acute radiographic abnormalities. Mild degenerative changes of the bilateral hips. Electronically Signed: Hugo Whatley MD at 21:44 EST Tel , Service support , Discharge Plan Triage Chief Complaint: Lower Extremity Injury ED Provider: Cornelio Greenberg Dx/Rx/DC Orders Instructions: ED Hip Contusion Prescriptions: No Action melatonin 10 mg tablet, sublingual 10 mg PO QHS PRN (Reason: Sleep) RF: 0 hydrochlorothiazide 25 mg tablet 25 mg PO DAILY Qty: 90 RF: 3 albuterol sulfate 2.5 mg /3 mL (0.083 %) solution for nebulization 2.5 mg INHALATION Q4H PRN (Reason: shortness of breath or wheezing) Qty: 180 RF: 3 omeprazole 40 mg capsule,delayed release(DR/EC) 40 mg PO DAILY RF: 0 citalopram 40 mg tablet 40 mg PO QHS RF: 0 metoprolol succinate 100 mg tablet extended release 24 hr 100 mg PO DAILY RF: 0 insulin NPH and regular human 100 unit/mL (70-30) suspension 70 unit SC QAM RF: 0 insulin NPH and regular human 100 unit/mL (70-30) suspension 90 unit SC QPM RF: 0 aspirin [Adult Low Dose Aspirin] 81 mg tablet,delayed release (DR/EC) 81 mg PO DAILY RF: 0 acetaminophen 500 mg tablet 1,000 mg PO Q6H PRN (Reason: Pain Score 1-5/10) RF: 0 duloxetine 30 mg capsule,delayed release(DR/EC) 30 mg PO BID RF: 0 ropinirole 4 MG tablet 4 mg PO BID RF: 0 gabapentin 800 mg tablet 800 mg PO BID RF: 0 losartan 100 mg tablet 100 mg PO QHS RF: 0 isosorbide mononitrate 30 mg tablet extended release 24 hr 30 mg PO DAILY Qty: 90 RF: 3 potassium chloride 20 mEq tablet,ER particles/crystals 40 meq PO QHS RF: 0 albuterol sulfate [ProAir HFA] 90 mcg/actuation HFA aerosol inhaler 2 puff INHALATION Q6H PRN (Reason: shortness of breath or wheezing) Qty: 18 RF: 6 Primary Care Provider: Kaz Cervantes Referrals: Kaz Cervantes, [Primary Care Provider] - Disposition Disposition: Home, Self Care
[2021-03-25] MEDS: Ketorolac 15 MG/ML Vial IM (20:59)
[2021-03-25 22:00] VITALS: BP 134/84; PULSE 86; RESP 18; TEMP 37.2; O2SAT 97
== END 2021-03-25 23:32 | disposition home or self-care (01) ==
PROVIDERS: Emergency Provider Student in an Organized Health Care Education/Training Program; PCP Family Medicine; Visit Provider Student in an Organized Health Care Education/Training Program
DX: S70.01XA Contusion of right hip, initial encounter (principal); J44.9 Chronic obstructive pulmonary disease, unspecified; E11.42 Type 2 diabetes mellitus with diabetic polyneuropathy; E66.01 Morbid (severe) obesity due to excess calories; Z79.4 Long term (current) use of insulin; W01.0XXA Fall on same level from slipping, tripping and stumbling without subsequent striking against object, initial encounter; M79.651 Pain in right thigh; I10 Essential (primary) hypertension; E78.5 Hyperlipidemia, unspecified; G47.33 Obstructive sleep apnea (adult) (pediatric); R29.6 Repeated falls; K21.9 Gastro-esophageal reflux disease without esophagitis; Z99.81 Dependence on supplemental oxygen; Z79.82 Long term (current) use of aspirin; Z79.899 Other long term (current) drug therapy; Z91.81 History of falling; Z86.711 Personal history of pulmonary embolism; Z86.16 Personal history of COVID-19
CPT/HCPCS: 72170; 73552; 96372; 99282

== ENCOUNTER 2021-03-29 14:09 | Outpatient (CLI) | payer MEDICARE, SELFPAY ==
--- NOTE | 2021-03-29 14:15 | CT_ITS ---
STUDY: CT BRAIN WITHOUT CONTRAST REASON FOR EXAM: Female, 71 years old. Recent falls. Occasional headaches. RADIATION DOSAGE (If Supplied By Facility): CTDIvol = ( 47.06 ) mGy, DLP = ( 890.33 ) mGycm TECHNIQUE: Transaxial CT imaging of the brain was performed without administration of intravenous contrast material. Individualized dose optimization techniques were used for this CT. COMPARISON: Comparison is made with prior study dated 12/22/2012. FINDINGS: Normal soft tissue structures. Normal calvarium. There is mild cerebral atrophy with widening of the extra-axial spaces and ventricular dilatation. There are areas of decreased attenuation within the white matter tracts of the supratentorial brain, consistent with microvascular disease changes. Focal lacunar in the left basal ganglion. Normal brainstem. Normal cerebellum. There is no intracranial hemorrhage. There are no findings of an acute ischemic infarction. Atherosclerotic calcification of the vertebral arteries and cavernous portions of the internal carotid arteries bilaterally. Normal visualized paranasal sinuses. CT/Brain/Head without Contrast IMPRESSION: Chronic involutional changes of the brain. Old lacunar in the left basal ganglia. Electronically Signed: El Mora MD at 15:04 EST , Service support ,
== END 2021-03-29 23:59 | disposition short-term general hospital (02) ==
LOC: CT 14:10
PROVIDERS: PCP Family Medicine; Referring Provider Family Medicine; Visit Provider Family Medicine
DX: R51.9 Headache, unspecified (principal); R29.6 Repeated falls
CPT/HCPCS: 70450

== ENCOUNTER 2021-06-21 02:55 | Inpatient (IN) | payer MEDICARE, SELFPAY ==
[2021-06-21] VITALS (33 sets, daily range): BP systolic 95–257; BP diastolic 44–165; PULSE 64–116; RESP 12–31; TEMP 36.2–39.1; O2SAT 90–100; BMI 45.9; BMI 43.2
--- NOTE | 2021-06-21 03:16 | EDS_ITS ---
HPI History of Present Illness Chief Complaint: Shortness of Breath Informant: patient Onset/Context/Timing Onset: Yesterday Context: gradual Timing: Continuous Quality: Positive for Dyspnea on exertion Worsened by: Exertion and Lying flat Relieved by: Nothing Associated Symptoms cough, subjective and chills; Negative for rhinorrhea, ear pain, fever, sore throat, clear sputum, white sputum, yellow sputum or green sputum Narrative Narrative: Patient presents with shortness of breath that began yesterday. Patient states it is gradually getting worse. Patient states it is constant. Patient states it is worse with any exertion. Patient states it is also worse whenever she lays flat. Patient states nothing seems to make it better. Patient admits to a cough but denies any sputum production. Patient admits to subjective chills but denies any fevers. Patient denies any chest pain. Patient denies any rhinorrhea or sore throat. [facility] Medical History Abnormal echocardiogram JILL (acute kidney injury) Anxiety and depression Arthritis Asthma Asthma Atherosclerosis of [place] coronary artery of [place] heart without angina pectoris Atrial septal defect Back pain Cardiology follow-up encounter Carpal tunnel syndrome Chronic bronchitis COPD (chronic obstructive pulmonary disease) COVID-19 determined by clinical diagnostic criteria Cystitis, acute DDD (degenerative disc disease), cervical Dehydration Dehydration with hyponatremia Diabetic peripheral neuropathy Dietary restriction Difficulty swallowing Disequilibrium DM (diabetes mellitus), type 2, uncontrolled DM (diabetes mellitus), type 2, uncontrolled Dyspnea on exertion Edema Essential hypertension Gastric reflux Gastroenteritis GERD (gastroesophageal reflux disease) History of echocardiogram (~01/2017) History of echocardiogram History of edema History of IBS History of nuclear stress test (~10/2016) History of stress test Hx of transesophageal echocardiography (MARIELLA) for monitoring Hyperlipidemia Hypertension Hypokalemia IBS (irritable bowel syndrome) Insomnia Insulin dependent diabetes mellitus Morbid obesity Non-smoker Obesity (BMI 35.0-39.9 without comorbidity) On home oxygen therapy SHANNON (obstructive sleep apnea) Pulmonary emboli Pulmonary embolism Recurrent falls Restless leg syndrome Restless legs Seasonal allergies Sepsis Shortness of breath on exertion SOB (shortness of breath) Spinal stenosis of lumbar region Vitamin D deficiency Walker as ambulation aid Wears dentures Wears glasses Home Medications ropinirole 4 mg PO BID 02/23/13 [History Last Taken 12/25/20 06:00] losartan 100 mg tablet 100 mg PO QHS 02/28/17 [History Last Taken 03/24/17] isosorbide mononitrate 30 mg tablet,extended release 24 hr 30 mg PO DAILY #90 tab 10/11/19 [Rx Last Taken 12/25/20 06:00] albuterol sulfate 2.5 mg INHALATION Q4H PRN #180 ml 12/01/19 [Rx Last Taken Unknown] hydrochlorothiazide 25 mg tablet 25 mg PO DAILY #90 tab 01/06/20 [Rx Last Taken Unknown] acetaminophen 500 mg tablet 1,000 mg PO Q6H PRN tab 07/06/20 [History Last Taken Unknown] aspirin 81 mg tablet,delayed release 81 mg PO DAILY 07/06/20 [History Last Taken Unknown] citalopram 40 mg tablet 40 mg PO QHS tablet 07/06/20 [History Last Taken Unknown] insulin human U-100 NPH-regulr 70-30 mix 100 unit/mL subcutaneous susp 90 unit SC QPM ml 07/06/20 [History Last Taken Unknown] metoprolol succinate 100 mg tablet,extended release 24 hr 100 mg PO DAILY tablet 07/06/20 [History Last Taken 12/25/20 06:00] omeprazole 40 mg capsule,delayed release 40 mg PO DAILY cap 07/06/20 [History Last Taken 12/25/20 06:00] duloxetine 30 mg capsule,delayed release 30 mg PO BID cap 08/11/20 [History Last Taken 12/25/20 06:00] albuterol sulfate 90 mcg/actuation aerosol inhaler 2 puff INHALATION Q6H PRN #18 g 12/11/20 [Rx Last Taken Unknown] insulin human U-100 NPH-regulr 70-30 mix 100 unit/mL subcutaneous susp 70 unit SC QAM ml 05/21/21 [History Last Taken Unknown] Allergy/AdvReac Type Severity Reaction Status Date / Time rivaroxaban [From Xarelto] Allergy Intermediate Itching Verified 06/21/21 02:56 latex Allergy Itching Verified 06/21/21 02:56 pravastatin Allergy Unknown Verified 06/21/21 02:56 codeine AdvReac Severe Itching Verified 06/21/21 02:56 zolpidem [From Ambien] AdvReac Severe Sleep Verified 06/21/21 02:56 walking/talking environmental Allergy Other Uncoded 06/21/21 02:56 Family History Father Heart disease Hypertension CAD (coronary artery disease) Arthritis Mother Hypertension Asthma Diabetes Heart disease COPD (chronic obstructive pulmonary disease) Surgical History Bilateral carpal tunnel syndrome History of appendectomy History of back surgery (~2018) History of carpal tunnel surgery of left wrist History of cataract surgery History of cholecystectomy (~09/2011) History of laminectomy (~07/2015) History of laparoscopic cholecystectomy History of umbilical hernia repair (~08/2012) sciatic nerve cauterization Social History Smoking Status: Never smoker second hand exposure: No alcohol intake: current alcohol intake frequency: holidays/special occasions only Alcohol type: beer and hard liquor substance use type: does not use caffeine: Yes Type: coffee Number of servings: 1 and tea what type of physical activity do you participate in: other details: physical therapy frequency: 1-2 times per week seatbelt use: always do you feel safe at home: Yes ROS ROS ED Constitutional Constitutional ED: Denies chills or fever(s) Eyes Eyes: Denies blurry vision or change in vision ENT ENT ED: Denies rhinorrhea or sore throat Cardiovascular Cardiovascular: Denies chest pain or palpitations Respiratory/Chest Respiratory/Chest: Reports cough and dyspnea Gastrointestinal Gastrointestinal: Denies nausea or vomiting Genitourinary Genitourinary ED: Denies dysuria or hematuria Musculoskeletal Musculoskeletal: Reports neck pain; Denies back pain Integumentary Denies abscess or rash Neurologic Neurologic: Denies headache(s) or weakness Allergic/Immunologic Allergic/Immunologic ED: Denies mouth swelling or urticaria EXAM Physical Exam Const Vital Signs: 06/21/21 02:56 06/21/21 02:59 06/21/21 03:00 Temperature 97.2 F L 97.2 F L Temperature Source Temporal Temporal Pulse Rate 97 97 Respiratory Rate 31 H 31 H Respiratory Effort Short of Breath Respiratory Depth Deep Respiratory Pattern Tachypnea Blood Pressure 189/95 H 189/95 H Blood Pressure Mean 126 126 Pulse Ox 96 96 Oxygen Delivery Method Non-Rebreather Non-Rebreather Non-Rebreather Oxygen Flow Rate (L/min) 15 06/21/21 03:30 06/21/21 03:40 06/21/21 04:20 Temperature 98.1 F Temperature Source Temporal Pulse Rate 88 74 Respiratory Rate 28 H 19 H Respiratory Effort Short of Breath Labored Respiratory Depth Shallow Respiratory Pattern Tachypnea Blood Pressure 151/65 H Blood Pressure Mean 93 Pulse Ox 92 93 92 Oxygen Delivery Method Nasal Cannula Nasal Cannula Nasal Cannula Oxygen Flow Rate (L/min) 4 4 4 06/21/21 05:14 06/21/21 06:00 Temperature 99.8 F H 97.8 F Temperature Source Temporal Temporal Pulse Rate 71 71 Respiratory Rate 17 16 Respiratory Effort Respiratory Depth Respiratory Pattern Blood Pressure 125/44 H 128/50 H Blood Pressure Mean 71 76 Pulse Ox 91 92 Oxygen Delivery Method Nasal Cannula Nasal Cannula Oxygen Flow Rate (L/min) 4 4 Positive well nourished, well developed and obese General Appearance ED: well developed Nutritional Appearance: obese HEENT Reports moist mucous membranes Neck supple and no JVD Resp normal respiratory effort Auscultation: rales bilateral base and diminished lung sounds diffuse Cardio regular rate, regular rhythm and no murmurs GI normal to inspection, nondistended, normoactive bowel sounds and non-tender Palpation: soft Extremity normal to inspection Extremity Narrative: There is 1+ pitting edema of the lower extremities bilaterally. General Extremety ED: Yes edema; Negative for tenderness General Extremity: edema Neuro oriented x3, CN's II-XII intact bilaterally and no sensory deficits noted Sensorium / Orientation: alert Motor Exam: strength 5/5 throughout Psych mental status grossly normal Skin no rashes or lesions noted MDM MDM MDM Narrative Medical decision making narrative: EKG was obtained. On my interpretation, it shows a normal sinus rhythm with first-degree AV block with a rate of 80. CT interval was 214 ms. QRS interval was normal at 94 ms QTc interval was slightly prolonged at 520 ms. [place] was normal. There are nonspecific ST-T wave changes noted. Portable 1 view chest x-ray was obtained. On my interpretation, lung teresa are clear. There is normal cardiac silhouette. Bony thorax is normal. There is no acute process noted. Radiologist also interpreted the x-ray and agrees. CBC was essentially within normal limits. D-dimer was elevated at 5.48. Lactate was elevated at 5.3. BNP was elevated at 457.3. Basic metabolic profile showed a hypokalemia of 2.4. BUN was 19 and creatinine was 1.23. High- sensitivity troponin was elevated at 1320. CTA of the chest was obtained. There are patchy groundglass opacities bilaterally in the mid and lower lung teresa. This could be atypical pneumonia, edema, or pulmonary hemorrhage. There is no evidence of pulmonary embolism or aortic dissection. This was interpreted by the radiologist and reviewed by myself. On reevaluation, patient is breathing better. She stated that the DuoNeb helped. Patient has few bibasilar Rales posteriorly on reexamination. Patient was given a dose of Lasix here. 2-hour repeat troponin was 2187. Case was discussed with cardiology. He recommended starting the patient on heparin. PT with INR PTT were ordered. Patient was started on heparin. Case was discussed with the hospitalist. He will admit the patient to PCU. Patient understood and was agreeable with the plan. All questions were answered. Lab Data Attestation: I reviewed the patient's lab results. Labs: Laboratory Results - last 24 hr 06/21/21 06/21/21 06/21/21 03:05 03:34 03:34 WBC 10.9 RBC 4.06 L Hgb 12.4 Hct 35.8 L MCV 88.2 MCH 30.5 MCHC 34.6 RDW Std Deviation 43.3 RDW Coeff of Mitzy 13.3 Plt Count 270 MPV 9.4 Immature Gran % (Auto) 0.900 Neut % (Auto) 94.8 H Lymph % (Auto) 2.8 L [place] % (Auto) 1.0 Eos % (Auto) 0.3 Baso % (Auto) 0.2 Absolute Neuts (auto) 10.3 H Absolute Lymphs (auto) 0.31 L Nucleated RBC % 0 Differential Comment SCANNED D-Dimer Quant (PE/DVT) 5.48 H* Sodium Potassium Chloride Carbon Dioxide Anion Gap BUN Creatinine Estim Creat Clear Calc Est GFR (MDRD) Af Amer Est GFR (MDRD) Non-Af BUN/Creatinine Ratio Glucose Lactic Acid 5.3 H* Calcium Troponin I High Sens B-Natriuretic Peptide 06/21/21 06/21/21 06/21/21 03:34 03:34 05:50 WBC RBC Hgb Hct MCV MCH MCHC RDW Std Deviation RDW Coeff of Mitzy Plt Count MPV Immature Gran % (Auto) Neut % (Auto) Lymph % (Auto) [place] % (Auto) Eos % (Auto) Baso % (Auto) Absolute Neuts (auto) Absolute Lymphs (auto) Nucleated RBC % Differential Comment D-Dimer Quant (PE/DVT) Sodium 138 Potassium 2.4 L* Chloride 100 Carbon Dioxide 29.0 Anion Gap 9 BUN 19 H Creatinine 1.23 H Estim Creat Clear Calc 35.21 Est GFR (MDRD) Af Amer 56 L Est GFR (MDRD) Non-Af 46 L BUN/Creatinine Ratio 15.4 Glucose 235 H Lactic Acid Calcium 8.1 L Troponin I High Sens 1320 H* 2187 H* B-Natriuretic Peptide 457.3 H ABG Data ABG results: ABG 06/21/21 04:05 Specimen Type ART Sample Site R Radial pH 7.45 Bicarbonate Actual 27.5 H Total CO2 29 Base Excess 4 H O2 Saturation 94 L ABG pCO2 39.5 ABG pO2 66 L [place] Test Positive O2 Delivery Device Cannula Liter Flow 4.0 Radiography Chest X-Ray - ED: 1 View, Read by ED Physician, Read by Radiologist, No Acute Disease and Cardiomegaly Diagnostic Testing: Clinical Impression(s) from Imaging Studies Chest X-Ray 06/21/21 03:19 IMPRESSION: Mild cardiomegaly. No acute abnormality identified. Electronically Signed: Mele Smith MD at 4:11 EDT , Chest CTA 06/21/21 04:26 IMPRESSION: 1. Patchy groundglass opacities bilaterally in the mid and lower lung zones. This may be due to atypical pneumonia such as Covid, edema, or pulmonary hemorrhage. 2. No PE or dissection. 3. Mild cardiomegaly. 4. Coronary artery disease. Electronically Signed: Mele Smith MD at 5:46 EDT , EKG Initial EKG: Attestation: I personally reviewed and interpreted this EKG as follows: Interpretation: Sinus Rhythm (80 with first-degree AV block) and Non- Specific ST Changes Prior EKG tracings: available for review Prior: Unchanged (05/21/2021) Discharge Plan Triage Chief Complaint: Shortness of Breath ED Provider: Kali Churchill Dx/Rx/DC Orders Clinical Impression: Non-STEMI (non-ST elevated myocardial infarction), Dyspnea on exertion, Hypokalemia, Acidosis, lactic Prescriptions: No Action hydrochlorothiazide 25 mg tablet 25 mg PO DAILY Qty: 90 RF: 3 albuterol sulfate 2.5 mg /3 mL (0.083 %) solution for nebulization 2.5 mg INHALATION Q4H PRN (Reason: shortness of breath or wheezing) Qty: 180 RF: 3 omeprazole 40 mg capsule,delayed release(DR/EC) 40 mg PO DAILY RF: 0 citalopram 40 mg tablet 40 mg PO QHS RF: 0 metoprolol succinate 100 mg tablet extended release 24 hr 100 mg PO DAILY RF: 0 insulin NPH and regular human 100 unit/mL (70-30) suspension 90 unit SC QPM RF: 0 aspirin [Adult Low Dose Aspirin] 81 mg tablet,delayed release (DR/EC) 81 mg PO DAILY RF: 0 acetaminophen 500 mg tablet 1,000 mg PO Q6H PRN (Reason: Pain Score 1-5/10) RF: 0 duloxetine 30 mg capsule,delayed release(DR/EC) 30 mg PO BID RF: 0 insulin NPH and regular human 100 unit/mL (70-30) suspension 70 unit SC QAM RF: 0 ropinirole 4 MG tablet 4 mg PO BID RF: 0 losartan 100 mg tablet 100 mg PO QHS RF: 0 isosorbide mononitrate 30 mg tablet extended release 24 hr 30 mg PO DAILY Qty: 90 RF: 3 albuterol sulfate [ProAir HFA] 90 mcg/actuation HFA aerosol inhaler 2 puff INHALATION Q6H PRN (Reason: shortness of breath or wheezing) Qty: 18 RF: 6 Primary Care Provider: Kaz Cervantes Referrals: Kaz Cervantes DO [Primary Care Provider] - Disposition Disposition: Acute Care Hospital [facility]
--- NOTE | 2021-06-21 03:19 | RAD_ITS ---
EXAM: XR CHEST, 1 VIEW CLINICAL INDICATION: Dyspnea TECHNIQUE: Frontal view of the chest. This report was created using [employer] report generation technology. COMPARISON: 04/11/2020. FINDINGS: LUNGS AND PLEURAL SPACES: Unremarkable. No consolidation or edema. No pneumothorax. No effusion. HEART: Mild cardiomegaly. MEDIASTINUM: Central airways and mediastinal contour are unremarkable. BONES/JOINTS: Unremarkable. SOFT TISSUES: Unremarkable. RAD/Chest 1 View (Portable) IMPRESSION: Mild cardiomegaly. No acute abnormality identified. Electronically Signed: Mele Smith MD at 4:11 EDT ,
--- NOTE | 2021-06-21 03:20 | EKG12_ITS ---
Test Reason : DYSRHYTHMIA Blood Pressure : / mmHG Vent. Rate : 080 BPM Atrial Rate : 080 BPM P-R Int : 214 ms QRS Dur : 094 ms QT Int : 460 ms P-R-T Axes : 085 000 011 degrees QTc Int : 530 ms Sinus rhythm with 1st degree A-V block Nonspecific ST abnormality Abnormal ECG Confirmed by PEPE MALIK, MARIEL ([id number]), brands editor JAM RILEY ([id number]) on 06/22/2021 2:21:10 PM Referred By: RAFAEL Confirmed By:WANDA CANTU MD
[2021-06-21] MEDS: Ipratropium/Albuterol Sulfate 3 ML AMPUL.NEB INHALATION (03:30)
[2021-06-21 03:45] LABS: Absolute Lymphocyte Count 0.31 X10^3/uL (0.83-4.51); Absolute Neutrophil Count 10.3 X10^3/uL (2.0-7.7); Basophil# 0.02 X10^3/uL; Basophil% 0.2 % (0-1); Eosinophil# 0.03 X10^3/uL; Eosinophils% 0.3 % (0-5); Hematocrit 35.8 % (37-47); Hemoglobin 12.4 g/dL (12.0-15.0); Lymphocyte # 0.31 X10^3/ul (0.83-4.51); Lymphocyte % 2.8 % (19-41); Mean Corp Hgb Conc 34.6 g/dL (32-36); Mean Corpuscular Hgb 30.5 pg (27.0-32.0); Mean Corpuscular Volume 88.2 fL (81-99); Mean Platelet Vol. 9.4 fl (6.2-12.0); Monocyte# 0.11 X10^3/uL; NRBC Flagged by Analyzer 0 % (0-5); Neutrophil # 10.32 X10^3/uL (2.7-7.7); Neutrophil % 94.8 % (47-70); POSITIVE DIFFERENTIAL YES; Platelet Count 270 K/mm3 (150-450); RBC Distribution Width CV 13.3 % (11.6-14.6); RBC Distribution Width SD 43.3 fl (35.1-43.9); Red Blood Count 4.06 M/mm3 (4.2-5.4); White Blood Count 10.9 K/mm3 (4.4-11.0)
[2021-06-21 03:50] LABS: Differential Indicated SCAN CRITERIA MET
[2021-06-21 04:10] LABS: Anion Gap 9 (5-15); BUN 19 mg/dL (7-18); BUN/Creat Ratio 15.4 RATIO (10-20); Calcium,Total 8.1 mg/dL (8.5-10.1); Chloride 100 mmol/L (98-107); Creatinine, Serum 1.23 mg/dL (0.55-1.02); EST Glomerular Filtration Rate 46 mL/min (>60); Est Glom Filt Rate - Afr Amer 56 mL/min (>60); Estimated Creatinine Clearance 35.21 ml/min; Glucose 235 mg/dL (74-106); Potassium 2.4 mmol/L (3.5-5.1); Sodium Level 138 mmol/L (136-145); Troponin-I HS 1320 pg/mL (3.0-54.0)
[2021-06-21 04:11] LABS: Lactic Acid 5.3 mmol/L (0.4-1.9)
[2021-06-21 04:11] LABS: Allen Test Positive; Base Excess 4 mmol/L (-2 to +2); Bicarbonate 27.5 mmol/L (22-26); Blood Gas Specimen Type ART; O2 Delivery Device Cannula; PO2 66 mmHG (75-100); SITE R Radial; SO2 94 % (95-99); Total Carbon Dioxide 29 mmol/L; pCO2 39.5 mmHg (35-45); pH 7.45 (7.35-7.45)
[2021-06-21] MEDS: Potassium Chloride Oral Tablet 20 MEQ 40 MEQ PO (04:17)
[2021-06-21 04:18] LABS: BNP,B-Type NATRIURETIC PEPTIDE 457.3 pg/mL (0-100)
[2021-06-21] MEDS: Potassium Chloride 10mEq/100mL 10 MEQ/100 ML IV.SOLN. 100 MEQ IV BOLUS ×6 (04:22→23:32)
[2021-06-21 04:25] LABS: D-Dimer Quantitative (DVT/PE) 5.48 FEU/ug/m (0.27-0.49)
--- NOTE | 2021-06-21 04:26 | CT_ITS ---
EXAM: CT ANGIOGRAPHY CHEST WITHOUT AND WITH INTRAVENOUS CONTRAST CLINICAL INDICATION: Elevated D-dimer TECHNIQUE: Helically acquired angiography images were obtained of the chest without and with intravenous contrast. This CT exam was performed using one or more of the following dose reduction techniques: automated exposure control, adjustment of the mA and/or kV according to patient size, and/or use of iterative reconstruction technique. This report was created using [employer] report generation technology. MIP reconstructed images were created and reviewed. RADIATION DOSAGE (If Required by State): CTDIvol = (15.04) mGy, DLP = (518.09) mGycm. CONTRAST: IV 100mL [id number] COMPARISON: 04/11/2020. FINDINGS: PULMONARY ARTERIES: Unremarkable. Normal in caliber. No evidence of pulmonary embolism. AORTA: Unremarkable. Normal in caliber. No evidence of dissection. GREAT VESSELS OF AORTIC ARCH: Unremarkable. Normal in caliber. No evidence of dissection. LUNGS AND PLEURAL SPACES: Patchy groundglass opacities bilaterally in the mid and lower lung zones. No mass. No pleural effusion or thickening. No pneumothorax. HEART: Mild cardiomegaly. Coronary artery calcifications. No pericardial effusion. No signs of right heart strain, ratio of right ventricle to left ventricle measures less than 1. MEDIASTINUM: Unremarkable. No mediastinal or hilar adenopathy. Esophagus is unremarkable. No hiatal hernia. THYROID: Unremarkable. No thyroid lesions. BONES/JOINTS: Unremarkable. No suspicious lytic or blastic abnormality. CT/CTA Chest W/WO Contrast IMPRESSION: 1. Patchy groundglass opacities bilaterally in the mid and lower lung zones. This may be due to atypical pneumonia such as Covid, edema, or pulmonary hemorrhage. 2. No PE or dissection. 3. Mild cardiomegaly. 4. Coronary artery disease. Electronically Signed: Mele Smith MD at 5:46 EDT ,
[2021-06-21] MEDS: Aspirin 81 MG TAB.CHEW 324 MG PO (04:29)
[2021-06-21 04:44] LABS: Differential Comment SCANNED
[2021-06-21 06:17] LABS: Troponin-I HS 2187 pg/mL (3.0-54.0)
[2021-06-21 06:46] LABS: International Normalized Ratio 1.2; Prothrombin Time (Protime)PT. 14.3 SECONDS (11.7-14.9)
--- NOTE | 2021-06-21 06:46 | PCM.PN.BLA ---
Progress Note Patient was not seen or examined. Patient was discussed with emergency department doctor. Per Emergency department doctor cardiology recommended that patient be started on heparin drip for non-STEMI. Heparin drip was continued. Patient's NPH was continued and Accu-Chek with QA CHS lispro also ordered for diabetes. Patient will be put on fluid restriction. Received Lasix 40 mg IV push at the emergency department. Will continue to trend troponin.
[2021-06-21 06:47] LABS: Partial Thromboplast Time 32.5 Seconds (24.1-36.2)
[2021-06-21] MEDS: Furosemide 40 MG/4 ML Vial IV ×2 (06:47→17:55)
[2021-06-21] MEDS: Heparin Injection (Vial) 5,000 UNIT/ML VIAL 9500 UNIT IV (06:47)
--- NOTE | 2021-06-21 06:52 | NURSING ---
pcu agyepong nstemi, hypokalemia, lactic acidosis, dyspnea
--- NOTE | 2021-06-21 07:25 | PCM.HP.STD ---
HPI - General General Date of Admission: 06/21/21 Date of Service: 06/21/21 Chief Complaint: shortness of breath. HPI Narrative ANN PEARCE, is a 71 F who presents presents with shortness of breath. Symptoms began at 1 AM. Patient has oxygen at home and put herself on it which she uses as needed but was not alleviating of her symptoms. Additionally patient was having diaphoresis and chills. This was different not because it took her a while to start feeling better with the oxygen which is typical what happens at home but just because of all her other complaints. She presented to the emergency room for evaluation. EKG was unremarkable but troponins were elevated initially at 1320 and then went up to 2187. Patient was started on heparin drip and Dr. Rice of cardiology was contacted and would be seeing the patient in consultation. Patient has never had a heart attack before. Patient was noted to have a potassium of 2.4. Patient does take diuretics at home but has not been able to take the potassium pills because is difficult to swallow. [facility] Medical History Abnormal echocardiogram JILL (acute kidney injury) Anxiety and depression Arthritis Asthma Asthma Atherosclerosis of [place] coronary artery of [place] heart without angina pectoris Atrial septal defect Back pain Cardiology follow-up encounter Carpal tunnel syndrome Chronic bronchitis COPD (chronic obstructive pulmonary disease) COVID-19 determined by clinical diagnostic criteria Cystitis, acute DDD (degenerative disc disease), cervical Dehydration Dehydration with hyponatremia Diabetic peripheral neuropathy Dietary restriction Difficulty swallowing Disequilibrium DM (diabetes mellitus), type 2, uncontrolled DM (diabetes mellitus), type 2, uncontrolled Dyspnea on exertion Edema Essential hypertension Gastric reflux Gastroenteritis GERD (gastroesophageal reflux disease) History of echocardiogram (~01/2017) History of echocardiogram History of edema History of IBS History of nuclear stress test (~10/2016) History of stress test Hx of transesophageal echocardiography (MARIELLA) for monitoring Hyperlipidemia Hypertension Hypokalemia IBS (irritable bowel syndrome) Insomnia Insulin dependent diabetes mellitus Morbid obesity Non-smoker Obesity (BMI 35.0-39.9 without comorbidity) On home oxygen therapy SHANNON (obstructive sleep apnea) Pulmonary emboli Pulmonary embolism Recurrent falls Restless leg syndrome Restless legs Seasonal allergies Sepsis Shortness of breath on exertion SOB (shortness of breath) Spinal stenosis of lumbar region Vitamin D deficiency Walker as ambulation aid Wears dentures Wears glasses Home Medications ropinirole 4 mg PO BID 02/23/13 [History Last Taken 12/25/20 06:00] losartan 100 mg tablet 100 mg PO QHS 02/28/17 [History Last Taken 03/24/17] isosorbide mononitrate 30 mg tablet,extended release 24 hr 30 mg PO DAILY #90 tab 10/11/19 [Rx Last Taken 12/25/20 06:00] albuterol sulfate 2.5 mg INHALATION Q4H PRN #180 ml 12/01/19 [Rx Last Taken Unknown] hydrochlorothiazide 25 mg tablet 25 mg PO DAILY #90 tab 01/06/20 [Rx Last Taken Unknown] acetaminophen 500 mg tablet 1,000 mg PO Q6H PRN tab 07/06/20 [History Last Taken Unknown] aspirin 81 mg tablet,delayed release 81 mg PO DAILY 07/06/20 [History Last Taken Unknown] citalopram 40 mg tablet 40 mg PO QHS tablet 07/06/20 [History Last Taken Unknown] insulin human U-100 NPH-regulr 70-30 mix 100 unit/mL subcutaneous susp 90 unit SC QPM ml 07/06/20 [History Last Taken Unknown] metoprolol succinate 100 mg tablet,extended release 24 hr 100 mg PO DAILY tablet 07/06/20 [History Last Taken 12/25/20 06:00] omeprazole 40 mg capsule,delayed release 40 mg PO DAILY cap 07/06/20 [History Last Taken 12/25/20 06:00] duloxetine 30 mg capsule,delayed release 30 mg PO BID cap 08/11/20 [History Last Taken 12/25/20 06:00] albuterol sulfate 90 mcg/actuation aerosol inhaler 2 puff INHALATION Q6H PRN #18 g 12/11/20 [Rx Last Taken Unknown] insulin human U-100 NPH-regulr 70-30 mix 100 unit/mL subcutaneous susp 70 unit SC QAM ml 05/21/21 [History Last Taken Unknown] Allergy/AdvReac Type Severity Reaction Status Date / Time rivaroxaban [From Xarelto] Allergy Intermediate Itching Verified 06/21/21 02:56 latex Allergy Itching Verified 06/21/21 02:56 pravastatin Allergy Unknown Verified 06/21/21 02:56 codeine AdvReac Severe Itching Verified 06/21/21 02:56 zolpidem [From Ambien] AdvReac Severe Sleep Verified 06/21/21 02:56 walking/talking environmental Allergy Other Uncoded 06/21/21 02:56 Family History Father Heart disease Hypertension CAD (coronary artery disease) Arthritis Mother Hypertension Asthma Diabetes Heart disease COPD (chronic obstructive pulmonary disease) Surgical History Bilateral carpal tunnel syndrome History of appendectomy History of back surgery (~2018) History of carpal tunnel surgery of left wrist History of cataract surgery History of cholecystectomy (~09/2011) History of laminectomy (~07/2015) History of laparoscopic cholecystectomy History of umbilical hernia repair (~08/2012) sciatic nerve cauterization Social History Smoking Status: Never smoker second hand exposure: No alcohol intake: current alcohol intake frequency: holidays/special occasions only Alcohol type: beer and hard liquor substance use type: does not use caffeine: Yes Type: coffee Number of servings: 1 and tea what type of physical activity do you participate in: other details: physical therapy frequency: 1-2 times per week seatbelt use: always do you feel safe at home: Yes ROS ROS Narrative Increased lower extremity edema. Denies chest pain. Coughing but nonproductive. No COVID-19 contacts. All review of systems were negative except as mentioned above in the history of present illness and the other review of systems. Vital Signs Vital Signs Vital Signs: 06/21/21 02:56 06/21/21 02:59 06/21/21 03:00 Temperature 36.2 C L 36.2 C L Temperature Source Temporal Temporal Pulse Rate 97 97 Respiratory Rate 31 H 31 H Respiratory Effort Short of Breath Respiratory Depth Deep Respiratory Pattern Tachypnea Blood Pressure 189/95 H 189/95 H Blood Pressure Mean 126 126 Pulse Ox 96 96 Oxygen Delivery Method Non-Rebreather Non-Rebreather Non-Rebreather Oxygen Flow Rate (L/min) 15 06/21/21 03:30 06/21/21 03:40 06/21/21 04:20 Temperature 36.7 C Temperature Source Temporal Pulse Rate 88 74 Respiratory Rate 28 H 19 H Respiratory Effort Short of Breath Labored Respiratory Depth Shallow Respiratory Pattern Tachypnea Blood Pressure 151/65 H Blood Pressure Mean 93 Pulse Ox 92 93 92 Oxygen Delivery Method Nasal Cannula Nasal Cannula Nasal Cannula Oxygen Flow Rate (L/min) 4 4 4 06/21/21 05:14 06/21/21 06:00 06/21/21 06:56 Temperature 37.7 C H 36.6 C 37.0 C Temperature Source Temporal Temporal Temporal Pulse Rate 71 71 68 Respiratory Rate 17 16 15 Respiratory Effort Respiratory Depth Respiratory Pattern Blood Pressure 125/44 H 128/50 H 127/66 H Blood Pressure Mean 71 76 86 Pulse Ox 91 92 91 Oxygen Delivery Method Nasal Cannula Nasal Cannula Nasal Cannula Oxygen Flow Rate (L/min) 4 4 4 06/21/21 07:00 Temperature 37.1 C Temperature Source Temporal Pulse Rate 68 Respiratory Rate 17 Respiratory Effort Respiratory Depth Respiratory Pattern Blood Pressure 112/52 L Blood Pressure Mean 72 Pulse Ox 91 Oxygen Delivery Method Nasal Cannula Oxygen Flow Rate (L/min) 4 Weight Weight: 117.6 kg Body Mass Index (BMI) 45.9 Physical Exam Const alert General Appearance: cooperative HEENT normocephalic, head/scalp atraumatic, hearing grossly normal bilaterally and moist oral mucous membranes Resp normal respiratory effort, no retractions, no use of accessory muscles and clear to auscultation bilaterally Cardio regular rate, regular rhythm, S1 normal heart sound and S2 normal heart sound GI normal to inspection, nondistended, normoactive bowel sounds, soft to palpation, non-tender, non-distended and hepatosplenomegaly Extremity Extremity Narrative: edema in LE Skin no rashes or lesions noted, no wounds and skin turgor normal Neuro Sensorium / Orientation: awake and alert Psych affect normal Results Lab / Micro Data Result Diagrams: 06/21/21 03:34 06/21/21 03:34 Labs: Laboratory Results - last 24 hr 06/21/21 03:05: Lactic Acid 5.3 H* 06/21/21 03:34: WBC 10.9, RBC 4.06 L, Hgb 12.4, Hct 35.8 L, MCV 88.2, MCH 30.5, MCHC 34.6, RDW Std Deviation 43.3, RDW Coeff of Mitzy 13.3, Plt Count 270, MPV 9.4, Immature Gran % (Auto) 0.900, Neut % (Auto) 94.8 H, Lymph % (Auto) 2.8 L, Mcculloch % (Auto) 1.0, Eos % (Auto) 0.3, Baso % (Auto) 0.2, Absolute Neuts (auto) 10.3 H, Absolute Lymphs (auto) 0.31 L, Nucleated RBC % 0, Differential Comment SCANNED 06/21/21 03:34: D-Dimer Quant (PE/DVT) 5.48 H* 06/21/21 03:34: Sodium 138, Potassium 2.4 L*, Chloride 100, Carbon Dioxide 29.0, Anion Gap 9, BUN 19 H, Creatinine 1.23 H, Estim Creat Clear Calc 35.21, Est GFR (MDRD) Af Amer 56 L, Est GFR (MDRD) Non-Af 46 L, BUN/Creatinine Ratio 15.4, Glucose 235 H, Calcium 8.1 L, Troponin I High Sens 1320 H* 06/21/21 03:34: B-Natriuretic Peptide 457.3 H 06/21/21 03:34: PT 14.3, INR 1.2, APTT 32.5 06/21/21 05:50: Troponin I High Sens 2187 H* Micro: Microbiology 06/21/21 03:25 Nasal Secretion SARS-CoV-2 & FLU Antigen (Rapid) - Final ABG Data ABG results: ABG 06/21/21 04:05 Specimen Type ART Sample Site R Radial pH 7.45 Bicarbonate Actual 27.5 H Total CO2 29 Base Excess 4 H O2 Saturation 94 L ABG pCO2 39.5 ABG pO2 66 L Corbin Test Positive O2 Delivery Device Cannula Liter Flow 4.0 EKG Initial EKG: Attestation: I personally reviewed and interpreted this EKG as follows: Prior EKG tracings: available for review EKG Rhythm Intrepretation: Sinus Rhythm and 1st Degree AVB Radiology Impression Chest X-Ray 06/21/21 03:19 IMPRESSION: Mild cardiomegaly. No acute abnormality identified. Electronically Signed: Mele Smith MD at 4:11 EDT , Chest CTA 06/21/21 04:26 IMPRESSION: 1. Patchy groundglass opacities bilaterally in the mid and lower lung zones. This may be due to atypical pneumonia such as Covid, edema, or pulmonary hemorrhage. 2. No PE or dissection. 3. Mild cardiomegaly. 4. Coronary artery disease. Electronically Signed: Mele Smith MD at 5:46 EDT , Assessment & Plan Assessment/Plan (1) Non-STEMI (non-ST elevated myocardial infarction): (2) Hypokalemia: PLAN: 1. non ST elevation myocardial infarction Continue with heparin drip Patient did receive aspirin in the emergency room Consult cardiology Did discuss with patient the possibility of a cardiac catheterization 2. Hypokalemia Secondary to taking HCTZ and inability to take potassium despite having a potassium of 2.4, patient received 10 mEq in the emergency room. 3. Dyspnea X-ray was fairly unremarkable. Patient did receive furosemide in the emergency room. I feel this is accommodation of a myocardial infarction but patient has underlying COPD. Wheezing so steroids not indicated at this time. 4. Diabetes type II Continued mixed insulin regiment and sliding scale insulin. 5. VTE prophylaxis: Not indicated as patient will be anticoagulated 6. Continue vaccination status: Patient has been vaccinated and boosted with [employer]. No recent COVID-19 contacts. 7. CODE STATUS: Addressed with patient. Patient is full CODE STATUS. Charges/Coding Visit Charges Inpatient E&M: 06645 Init Hosp L3
[2021-06-21 07:34] LABS: Reflex Lactate? Y
[2021-06-21] MEDS: Insulin Lispro 100 UNIT/ML INSULN.PEN SC ×2 (08:13→12:31)
[2021-06-21 08:21] LABS: Bedside Glucose 160 mg/dL (74-106)
[2021-06-21 08:48] LABS: Lactic Acid 2.5 mmol/L (0.4-1.9); Troponin-I HS 2123 pg/mL (3.0-54.0)
[2021-06-21] MEDS: Isosorbide Mononitrate 30 MG Tablet PO (10:19)
[2021-06-21] MEDS: Pantoprazole Sodium 40 MG Tablet PO (10:19)
[2021-06-21] MEDS: DULoxetine Hcl 30 MG Capsule PO ×2 (10:19→22:36)
[2021-06-21] MEDS: Insulin Human 75/25 Kwickpen 70 UNIT SC (10:19)
[2021-06-21] MEDS: Pramipexole Di-HCl 1 MG Tablet 1.5 MG PO ×2 (10:19→22:35)
[2021-06-21] MEDS: hydroCHLOROthiazide 25 MG Tablet PO (10:19)
[2021-06-21] MEDS: Aspirin E.C. 81 MG Tablet PO (10:19)
--- NOTE | 2021-06-21 11:45 | CASEMGMT ---
[facility] [place] Face to Face with patient for initial transition planning/care coordination assessment. RN NANCIE introduced self and role at [facility]. Patient lying in bed, alert and oriented. Patient willing to participate in assessment and is able to answer all questions appropriately. Care providers, pharmacy, and demographics verified. Patient wishes to discharge home with resumption of outpatient therapy. Patient states she has no further needs or concerns at this time. CM to follow for discharge planning needs that may arise. PCP: Billy Specialists: none Preferred Pharmacy: [facility] Insurance: [employer] Prescription Benefit: yes Living Will/HPOA: yes, son Darian White LNOK: and son Living Arrangements: Patient lives with son in a mobile home with 1 step and railing to enter the home. Patient states she independent for self care. Transportation: DME/HHC: Patient shower chair, raised toilet, grab bars, walker, cpap, nebulizer, pulse ox, home oxygen at 2lpm through [facility] with portability. Patient has had [facility] HHC in the past. Patient is currently attending outpatient therapy at [facility]. Disposition Plan: Patient to discharge home with family support and follow-up plans in place. Jennifer ELLIS, RN, CM
[2021-06-21 12:36] LABS: Bedside Glucose 245 mg/dL (74-106)
[2021-06-21 13:11] LABS: Partial Thromboplast Time 126.8 Seconds (24.1-36.2)
[2021-06-21] MEDS: Acetaminophen 500 MG Tablet 1000 MG PO (13:32)
--- NOTE | 2021-06-21 13:41 | CASEMGMT ---
Call to [facility] and per Gladys, pt's order is for 2L continuous home oxygen. This RN CM to room to see if pt would like HHC but per pt she is active with OP therapy at [facility] and would like to continue with this at this time. CM to follow for increased home oxygen need. Paulo MARIA CM
[2021-06-21 15:51] LABS: Bedside Glucose 134 mg/dL (74-106)
--- NOTE | 2021-06-21 16:13 | ECHOCS_ITS ---
Reason For Study: Chest Pain Procedure This was a 2D Doppler, Color Flow transthoracic echocardiogram. Technically difficult study. Patient unable to lay on left side, contrast injection performed. Exam performed portable in patient room. Left Ventricle The estimated ejection fraction is 60 %. No evidence for diastolic dysfunction. No regional wall motion abnormalities noted. Right Ventricle Normal RV size. Normal systolic function. Atria Normal left atrium. Normal right atrium. No doppler evidence for ASD. Mitral Valve There is no mitral valve stenosis. No mitral valve insufficiency. Tricuspid Valve There is no tricuspid stenosis. Unable to estimate RV systolic pressure due to inadequate jet, pulmonary artery pressure probably normal. Aortic Valve Trisinus/trileaflet aortic valve. Aortic sclerosis, no stenosis. There is no aortic stenosis. No aortic valve insufficiency. Pulmonic Valve There is no pulmonic valvular stenosis. No pulmonic valve insufficiency. Great Vessels Normal aortic root. Pericardium/Pleural No pericardial effusion. Medication Diluted definity 4ml given slow IV push to enhance endocardial definition. MMode/2D Measurements & Calculations LVIDd: 4.4 cm IVSd: 1.3 cm Ao root diam: 3.7 cm LVIDs: 3.2 cm LVPWd: 1.3 cm LA dimension: 4.2 cm FS: 26.9 % LAV(MOD-sp4): 45.0 ml LA A4 area: 16.4 cm2 Time Measurements MV dec time: 0.37 sec Doppler Measurements & Calculations MV E max ray: 73.6 cm/sec Lat Peak E' Ray: 6.6 cm/sec Med Peak E' Ray: 4.5 cm/sec MV A max ray: 96.5 cm/sec E/E' lat: 11.2 E/E' med: 16.5 MV E/A: 0.76 MV V2 max: 112.7 cm/sec MV P1/2t max ray: 88.6 cm/sec Ao V2 max: 108.1 cm/sec MV max P.1 mmHg MV P1/2t: 79.3 msec Ao max P.7 mmHg MV V2 mean: 64.2 cm/sec MV dec slope: 327.1 cm/sec2 MV mean P.9 mmHg MV V2 VTI: 31.9 cm MVA(P1/2t): 2.8 cm2 LV V1 max: 102.7 cm/sec PA V2 max: 137.7 cm/sec LV V1 max P.2 mmHg ECHO/Echo Complete W/ Contrast Interpretation Summary The estimated ejection fraction is 60 %. No evidence for diastolic dysfunction. Aortic sclerosis, no stenosis. Ordering Physician: Kam Rice Referring Physician: Kaz Cervantes Performed By: David Johnson RCS
--- NOTE | 2021-06-21 16:38 | PCM.CONS.C ---
Assessment & Plan Assessment/Plan (1) Non-STEMI (non-ST elevated myocardial infarction): PLAN: Appears to be type II AL secondary to hypoxemic respiratory failure in addition to underlying mild CAD. It will be reasonable to discontinue the heparin at this time. We will check a 2D echo. If there are wall motion abnormalities then we will proceed with coronary angiography this admission. If there are no significant wall motion abnormalities then patient can proceed with outpatient stress testing. Respiratory failure is likely secondary to her COPD exacerbation. IV Lasix was also given once which is reasonable given her history of congestive heart failure with preserved EF. Potassium was also being replaced as patient was taking a diuretic but not her home dose of potassium as the pills were apparently too big for her to take. HPI Consult Data Date of Consult: 06/21/21 HPI Narrative HPI Narrative: ANN PEARCE, is a 71 F with history of mild nonobstructive coronary artery disease by heart cath at [facility] in 2018, small PFO that was felt to be hemodynamically not significant for closure, preserved EF, elevated LVEDP felt to be due to diastolic dysfunction at the time of heart catheterization, COPD, sleep apnea, noncompliant with oxygen, pulmonary hypertension presenting with shortness of breath. Patient has chronic lower extremity edema. Patient's troponin went up to around 2180 and has started trending down. She denies any chest pain. Patient was hypoxic on arrival. Review of systems: All systems reviewed. All else is negative except that in the [facility] Medical History Abnormal echocardiogram JILL (acute kidney injury) Anxiety and depression Arthritis Asthma Asthma Atherosclerosis of [place] coronary artery of [place] heart without angina pectoris Atrial septal defect Back pain Cardiology follow-up encounter Carpal tunnel syndrome Chronic bronchitis COPD (chronic obstructive pulmonary disease) COVID-19 determined by clinical diagnostic criteria Cystitis, acute DDD (degenerative disc disease), cervical Dehydration Dehydration with hyponatremia Diabetic peripheral neuropathy Dietary restriction Difficulty swallowing Disequilibrium DM (diabetes mellitus), type 2, uncontrolled DM (diabetes mellitus), type 2, uncontrolled Dyspnea on exertion Edema Essential hypertension Gastric reflux Gastroenteritis GERD (gastroesophageal reflux disease) History of echocardiogram (~01/2017) History of echocardiogram History of edema History of IBS History of nuclear stress test (~10/2016) History of stress test Hx of transesophageal echocardiography (MARIELLA) for monitoring Hyperlipidemia Hypertension Hypokalemia IBS (irritable bowel syndrome) Insomnia Insulin dependent diabetes mellitus Morbid obesity Non-smoker Obesity (BMI 35.0-39.9 without comorbidity) On home oxygen therapy SHANNON (obstructive sleep apnea) Pulmonary emboli Pulmonary embolism Recurrent falls Restless leg syndrome Restless legs Seasonal allergies Sepsis Shortness of breath on exertion SOB (shortness of breath) Spinal stenosis of lumbar region Vitamin D deficiency Walker as ambulation aid Wears dentures Wears glasses Home Medications ropinirole 4 mg PO BID 02/23/13 [History Last Taken 12/25/20 06:00] losartan 100 mg tablet 100 mg PO QHS 02/28/17 [History Last Taken 03/24/17] isosorbide mononitrate 30 mg tablet,extended release 24 hr 30 mg PO DAILY #90 tab 10/11/19 [Rx Last Taken 12/25/20 06:00] albuterol sulfate 2.5 mg INHALATION Q4H PRN #180 ml 12/01/19 [Rx Last Taken Unknown] hydrochlorothiazide 25 mg tablet 25 mg PO DAILY #90 tab 01/06/20 [Rx Last Taken Unknown] acetaminophen 500 mg tablet 1,000 mg PO Q6H PRN tab 07/06/20 [History Last Taken Unknown] aspirin 81 mg tablet,delayed release 81 mg PO DAILY 07/06/20 [History Last Taken Unknown] citalopram 40 mg tablet 40 mg PO QHS tablet 07/06/20 [History Last Taken Unknown] insulin human U-100 NPH-regulr 70-30 mix 100 unit/mL subcutaneous susp 90 unit SC QPM ml 07/06/20 [History Last Taken Unknown] metoprolol succinate 100 mg tablet,extended release 24 hr 100 mg PO DAILY tablet 07/06/20 [History Last Taken 12/25/20 06:00] omeprazole 40 mg capsule,delayed release 40 mg PO DAILY cap 07/06/20 [History Last Taken 12/25/20 06:00] duloxetine 30 mg capsule,delayed release 30 mg PO BID cap 08/11/20 [History Last Taken 12/25/20 06:00] albuterol sulfate 90 mcg/actuation aerosol inhaler 2 puff INHALATION Q6H PRN #18 g 12/11/20 [Rx Last Taken Unknown] insulin human U-100 NPH-regulr 70-30 mix 100 unit/mL subcutaneous susp 70 unit SC QAM ml 05/21/21 [History Last Taken Unknown] Allergy/AdvReac Type Severity Reaction Status Date / Time rivaroxaban [From Xarelto] Allergy Intermediate Itching Verified 06/21/21 02:56 latex Allergy Itching Verified 06/21/21 02:56 pravastatin Allergy Unknown Verified 06/21/21 02:56 codeine AdvReac Severe Itching Verified 06/21/21 02:56 zolpidem [From Ambien] AdvReac Severe Sleep Verified 06/21/21 02:56 walking/talking environmental Allergy Other Uncoded 06/21/21 02:56 Family History Father Heart disease Hypertension CAD (coronary artery disease) Arthritis Mother Hypertension Asthma Diabetes Heart disease COPD (chronic obstructive pulmonary disease) Surgical History Bilateral carpal tunnel syndrome History of appendectomy History of back surgery (~2018) History of carpal tunnel surgery of left wrist History of cataract surgery History of cholecystectomy (~09/2011) History of laminectomy (~07/2015) History of laparoscopic cholecystectomy History of umbilical hernia repair (~08/2012) sciatic nerve cauterization Social History Smoking Status: Never smoker second hand exposure: No alcohol intake: current alcohol intake frequency: holidays/special occasions only Alcohol type: beer and hard liquor substance use type: does not use caffeine: Yes Type: coffee Number of servings: 1 and tea what type of physical activity do you participate in: other details: physical therapy frequency: 1-2 times per week seatbelt use: always do you feel safe at home: Yes Physical Exam Const alert and oriented x3 Orientation / Consciousness: awake HEENT normocephalic Eyes no scleral icterus Neck supple Chest inspection of chest normal Resp Auscultation: wheezes expiratory wheezes and throughout Cardio regular rate Extremity General Extremity: edema bilateral lower extremity Neuro oriented x3 Psych mental status grossly normal Risk Stratification Risk Stratification Applicable: No Charges/Coding Visit Charges Inpatient E&M: 18129 Init Hosp L2 Objective Data Vital Signs: Vital Signs Temp Pulse Resp BP Pulse Ox 98.1 F 68 18 123/60 H 97 06/21/21 15:38 06/21/21 15:57 06/21/21 15:38 06/21/21 15:38 06/21/21 15:38 Oxygen Flow Rate (L/min) 3 Oxygen Delivery Method Nasal Cannula Weight: 251 lb 8.759 oz Body Mass Index (BMI) 43.2 Intake & Output: Intake and Output for Last 24 Hours 06/19/21 06/20/21 06/21/21 23:59 23:59 23:59 Intake Total 295.86 / 295.86 Output Total 400 / 400 Balance -104.14 / -104.14 Lab / Micro Data Result Diagrams: 06/21/21 03:34 06/21/21 03:34 Labs: Laboratory Results - last 24 hr 06/21/21 03:05: Lactic Acid 5.3 H* 06/21/21 03:34: WBC 10.9, RBC 4.06 L, Hgb 12.4, Hct 35.8 L, MCV 88.2, MCH 30.5, MCHC 34.6, RDW Std Deviation 43.3, RDW Coeff of Mitzy 13.3, Plt Count 270, MPV 9.4, Immature Gran % (Auto) 0.900, Neut % (Auto) 94.8 H, Lymph % (Auto) 2.8 L, [place] % (Auto) 1.0, Eos % (Auto) 0.3, Baso % (Auto) 0.2, Absolute Neuts (auto) 10.3 H, Absolute Lymphs (auto) 0.31 L, Nucleated RBC % 0, Differential Comment SCANNED 06/21/21 03:34: D-Dimer Quant (PE/DVT) 5.48 H* 06/21/21 03:34: Sodium 138, Potassium 2.4 L*, Chloride 100, Carbon Dioxide 29.0, Anion Gap 9, BUN 19 H, Creatinine 1.23 H, Estim Creat Clear Calc 35.21, Est GFR (MDRD) Af Amer 56 L, Est GFR (MDRD) Non-Af 46 L, BUN/Creatinine Ratio 15.4, Glucose 235 H, Calcium 8.1 L, Troponin I High Sens 1320 H* 06/21/21 03:34: B-Natriuretic Peptide 457.3 H 06/21/21 03:34: PT 14.3, INR 1.2, APTT 32.5 06/21/21 05:50: Troponin I High Sens 2187 H* 06/21/21 08:05: Lactic Acid 2.5 H* 06/21/21 08:05: Troponin I High Sens 2123 H* 06/21/21 08:12: POC Glucose 160 H 06/21/21 12:29: POC Glucose 245 H 06/21/21 12:53: APTT 126.8 H* 06/21/21 15:46: POC Glucose 134 H Micro: Microbiology 06/21/21 03:34 Blood Culture (Wb) - Left Forearm Blood Culture - Preliminary 06/21/21 03:25 Nasal Secretion SARS-CoV-2 & FLU Antigen (Rapid) - Final ABG Data ABG results: ABG 06/21/21 04:05 Specimen Type ART Sample Site R Radial pH 7.45 Bicarbonate Actual 27.5 H Total CO2 29 Base Excess 4 H O2 Saturation 94 L ABG pCO2 39.5 ABG pO2 66 L Corbin Test Positive O2 Delivery Device Cannula Liter Flow 4.0 Cardiology Labs/Tests 06/21/21 03:05: Lactic Acid 5.3 H* 06/21/21 03:34: WBC 10.9, RBC 4.06 L, Hgb 12.4, Hct 35.8 L, MCV 88.2, MCH 30.5, MCHC 34.6, Plt Count 270, MPV 9.4, Immature Gran % (Auto) 0.900, Neut % (Auto) 94.8 H, Lymph % (Auto) 2.8 L, [place] % (Auto) 1.0, Eos % (Auto) 0.3, Baso % (Auto) 0.2, Absolute Neuts (auto) 10.3 H, Nucleated RBC % 0 06/21/21 03:34: D-Dimer Quant (PE/DVT) 5.48 H* 06/21/21 03:34: Sodium 138, Potassium 2.4 L*, Chloride 100, Carbon Dioxide 29.0, Anion Gap 9, BUN 19 H, Creatinine 1.23 H, Est GFR (MDRD) Af Amer 56 L, Est GFR (MDRD) Non-Af 46 L, BUN/Creatinine Ratio 15.4, Glucose 235 H, Calcium 8.1 L 06/21/21 03:34: B-Natriuretic Peptide 457.3 H 06/21/21 03:34: PT 14.3, INR 1.2, APTT 32.5 06/21/21 04:05: pH 7.45, Bicarbonate Actual 27.5 H, Base Excess 4 H, O2 Saturation 94 L, ABG pCO2 39.5, ABG pO2 66 L, [place] Test Positive 06/21/21 08:05: Lactic Acid 2.5 H* 06/21/21 12:53: APTT 126.8 H* Rhythm: EKG: ECHO: Stress Test: Cardiac Cath: PCI: CT Surgery: Holter monitor: EPS: PPM: CXR: Chest CT Scan: Radiography Diagnostic Testing: Radiology Impression Chest X-Ray 06/21/21 03:19 IMPRESSION: Mild cardiomegaly. No acute abnormality identified. Electronically Signed: Mele Smith MD at 4:11 EDT , Chest CTA 06/21/21 04:26 IMPRESSION: 1. Patchy groundglass opacities bilaterally in the mid and lower lung zones. This may be due to atypical pneumonia such as Covid, edema, or pulmonary hemorrhage. 2. No PE or dissection. 3. Mild cardiomegaly. 4. Coronary artery disease. Electronically Signed: Mele Smith MD at 5:46 EDT ,
[2021-06-21] MEDS: hydrALAZINE 20 MG/ML Vial 10 MG IV (18:09)
[2021-06-21 18:11] LABS: Allen Test Positive; Base Excess 4 mmol/L (-2 to +2); Blood Gas Specimen Type ART; FI02 100; O2 Delivery Device NRB; PO2 88 mmHG (75-100); SO2 97 % (95-99); Total Carbon Dioxide 29 mmol/L; pCO2 42.7 mmHg (35-45); pH 7.43 (7.35-7.45)
--- NOTE | 2021-06-21 18:20 | RAD_ITS ---
EXAM: AP chest. HISTORY: shortness of breath TECHNIQUE: XR Chest 1 View COMPARISON: June 21, 2021 at 3:46 AM. May 12, 2017 PA and lateral views. LIMITATIONS: Mild patient rotation to the left. EKG leads over the chest. HEART: Mild cardiomegaly. TUBES/LINES: None. LUNGS: Normal. PLEURA: Normal. MEDIASTINUM: No mikki mediastinal widening but mildly tortuous contour of the descending thoracic, stable compared to May 12, 2017. BONES/SOFT TISSUES: Mild apparent dextroscoliosis of the mid to lower thoracic spine. OTHER: The tips of intrathecal lines are seen over the lower thoracic spine, similar position. Cholecystectomy clips. IMPRESSION: Stable chest considering mild patient rotation. Mild cardiomegaly. No significant infiltrates or effusions. Electronically Signed: Arleen Bustillos MD at 20:17 EDT , RAD/Chest 1 View (Portable)
[2021-06-21] MEDS: Acetaminophen 325 MG Tablet 650 MG PO (18:25)
[2021-06-21 18:40] LABS: Absolute Lymphocyte Count 0.55 X10^3/uL (0.83-4.51); Absolute Neutrophil Count 2.6 X10^3/uL (2.0-7.7); Basophil# 0.01 X10^3/uL; Basophil% 0.3 % (0-1); Eosinophil# 0.02 X10^3/uL; Eosinophils% 0.6 % (0-5); Hematocrit 34.9 % (37-47); Lymphocyte # 0.55 X10^3/ul (0.83-4.51); Mean Corp Hgb Conc 34.4 g/dL (32-36); Mean Corpuscular Hgb 30.2 pg (27.0-32.0); Mean Corpuscular Volume 87.9 fL (81-99); Mean Platelet Vol. 9.3 fl (6.2-12.0); Monocyte# 0.03 X10^3/uL; Monocyte% 0.9 % (0-10); NRBC Flagged by Analyzer 0 % (0-5); Neutrophil # 2.61 X10^3/uL (2.7-7.7); Neutrophil % 80.6 % (47-70); POSITIVE DIFFERENTIAL YES; Platelet Count 195 K/mm3 (150-450); RBC Distribution Width CV 13.3 % (11.6-14.6); RBC Distribution Width SD 43.2 fl (35.1-43.9); Red Blood Count 3.97 M/mm3 (4.2-5.4); White Blood Count 3.2 K/mm3 (4.4-11.0)
[2021-06-21 18:58] LABS: Anion Gap 10 (5-15); BUN 21 mg/dL (7-18); BUN/Creat Ratio 17.4 RATIO (10-20); Calcium,Total 8.7 mg/dL (8.5-10.1); Chloride 101 mmol/L (98-107); Creatinine, Serum 1.21 mg/dL (0.55-1.02); EST Glomerular Filtration Rate 47 mL/min (>60); Est Glom Filt Rate - Afr Amer 57 mL/min (>60); Estimated Creatinine Clearance 37.36 ml/min; Glucose 153 mg/dL (74-106); Magnesium 0.7 mg/dL (1.6-2.6); Potassium 2.6 mmol/L (3.5-5.1); Sodium Level 139 mmol/L (136-145)
[2021-06-21 18:58] LABS: Differential Indicated SCAN CRITERIA MET
[2021-06-21 19:49] LABS: Differential Comment SCANNED
[2021-06-21] MEDS: Magnesium Sulfate 4gm/100mL 4 GM/100 ML IV.SOLN. IV (20:04)
[2021-06-21 22:29] LABS: Partial Thromboplast Time 65.7 Seconds (24.1-36.2)
[2021-06-21] MEDS: Insulin Human 75/25 Kwickpen 90 UNIT SC (22:30)
[2021-06-21] MEDS: Citalopram 40 MG TABLET PO (22:36)
[2021-06-22] VITALS (18 sets, daily range): BP systolic 93–146; BP diastolic 56–81; PULSE 60–85; RESP 14–21; TEMP 36.6–37.4; O2SAT 91–98
[2021-06-22 00:56] LABS: Bedside Glucose 168 mg/dL (74-106)
[2021-06-22 04:22] LABS: Absolute Lymphocyte Count 1.45 X10^3/uL (0.83-4.51); Absolute Neutrophil Count 19.7 X10^3/uL (2.0-7.7); Basophil# 0.08 X10^3/uL; Basophil% 0.4 % (0-1); Eosinophil# 0.03 X10^3/uL; Eosinophils% 0.1 % (0-5); Hematocrit 31.1 % (37-47); Hemoglobin 10.6 g/dL (12.0-15.0); Lymphocyte # 1.45 X10^3/ul (0.83-4.51); Lymphocyte % 6.4 % (19-41); Mean Corp Hgb Conc 34.1 g/dL (32-36); Mean Corpuscular Hgb 30.2 pg (27.0-32.0); Mean Corpuscular Volume 88.6 fL (81-99); Mean Platelet Vol. 9.8 fl (6.2-12.0); Monocyte# 1.19 X10^3/uL; Monocyte% 5.2 % (0-10); NRBC Flagged by Analyzer 0 % (0-5); Neutrophil # 19.67 X10^3/uL (2.7-7.7); Neutrophil % 86.8 % (47-70); Platelet Count 183 K/mm3 (150-450); RBC Distribution Width CV 13.6 % (11.6-14.6); Red Blood Count 3.51 M/mm3 (4.2-5.4); White Blood Count 22.7 K/mm3 (4.4-11.0)
[2021-06-22 04:31] LABS: Partial Thromboplast Time 79.3 Seconds (24.1-36.2)
[2021-06-22 04:55] LABS: Anion Gap 7 (5-15); BUN 27 mg/dL (7-18); BUN/Creat Ratio 18.8 RATIO (10-20); Calcium,Total 7.9 mg/dL (8.5-10.1); Chloride 100 mmol/L (98-107); Creatinine, Serum 1.44 mg/dL (0.55-1.02); EST Glomerular Filtration Rate 38 mL/min (>60); Est Glom Filt Rate - Afr Amer 46 mL/min (>60); Estimated Creatinine Clearance 31.39 ml/min; Glucose 166 mg/dL (74-106); Magnesium 2.3 mg/dL (1.6-2.6); Potassium 2.5 mmol/L (3.5-5.1); Sodium Level 138 mmol/L (136-145)
[2021-06-22] MEDS: Potassium Chloride Oral Soln 20 MEQ/15 ML UDC 40 MEQ PO (05:20)
[2021-06-22] MEDS: Potassium Chloride 10mEq/100mL 10 MEQ/100 ML IV.SOLN. 100 MEQ IV BOLUS ×4 (05:24→09:09)
[2021-06-22] MEDS: Insulin Lispro 100 UNIT/ML INSULN.PEN SC ×3 (06:32→21:08)
[2021-06-22 06:41] LABS: Bedside Glucose 203 mg/dL (74-106)
[2021-06-22] MEDS: Pramipexole Di-HCl 1 MG Tablet 1.5 MG PO ×2 (09:13→21:05)
[2021-06-22] MEDS: DULoxetine Hcl 30 MG Capsule PO ×2 (09:13→21:04)
[2021-06-22] MEDS: Aspirin E.C. 81 MG Tablet PO (09:13)
[2021-06-22] MEDS: hydroCHLOROthiazide 25 MG Tablet PO (09:13)
[2021-06-22] MEDS: Pantoprazole Sodium 40 MG Tablet PO (09:13)
[2021-06-22] MEDS: Isosorbide Mononitrate 30 MG Tablet PO (09:13)
[2021-06-22] MEDS: Insulin Human 75/25 Kwickpen 70 UNIT SC (09:13)
[2021-06-22] MEDS: Acetaminophen 500 MG Tablet 1000 MG PO ×2 (10:31→21:04)
[2021-06-22 11:38] LABS: Mucous, Urine 0 SEEN /hpf (<or=2+)
[2021-06-22 11:42] LABS: Color, Urine Yellow (Yellow); Glucose, Dipstick Normal (Normal); Ketone-Dipstick Negative (Negative); Leukocyte Esterase-Dipstick 500 /ul (Negative); Nitrite-Dipstick Negative (Negative); Occult Blood-Urine 25 /ul (Negative); Protein-Dipstick 30 mg/dl (Negative); Specific Gravity, Urine 1.015 (1.002-1.030); Urine Bilirubin Dipstick Negative (Negative); Urine Clarity Sl. Cloudy (Clear); Urine Urobilinogen Normal (Normal)
[2021-06-22 11:49] LABS: Bacteria 2+ /hpf (None Seen); Red Blood Cells-Urine 5-10 SEEN /hpf (0-5); Squamous Epithelial Cells - UA 0-5 SEEN /hpf (5-10); White Blood Cells 25-50 SEEN /hpf (0-5)
[2021-06-22 11:56] LABS: Bedside Glucose 149 mg/dL (74-106)
--- NOTE | 2021-06-22 12:30 | PCM.PN.HOSP ---
Subjective Subjective Dyspnea and hypertensive urgency overnight. Today, feeling much better. Objective Data Objective Data Vital Signs: Vital Signs Temp Pulse Resp BP Pulse Ox 36.6 C 71 18 112/58 L 96 06/22/21 11:00 06/22/21 11:00 06/22/21 11:00 06/22/21 11:00 06/22/21 11:33 Oxygen Flow Rate (L/min) [ 2 AMBULATING with Oxygen #1] Oxygen Flow Rate (L/min) [At 2 REST with Oxygen] Oxygen Flow Rate (L/min) 2 Oxygen Delivery Method Nasal Cannula Weight: 112.9 kg Body Mass Index (BMI) 43.2 Intake & Output: Intake and Output for Last 24 Hours 06/20/21 06/21/21 06/22/21 23:59 23:59 23:59 Intake Total 755.66 / 755.66 1362.42 / 1362.42 Output Total 1500 / 1500 550 / 550 Balance -744.34 / -744.34 812.42 / 812.42 Lab / Micro Data Result Diagrams: 06/22/21 04:06 06/22/21 04:06 Labs: Laboratory Results - last 24 hr 06/21/21 12:29: POC Glucose 245 H 06/21/21 12:53: APTT 126.8 H* 06/21/21 15:46: POC Glucose 134 H 06/21/21 17:52: Sodium 139, Potassium 2.6 L*, Chloride 101, Carbon Dioxide 28.0, Anion Gap 10, BUN 21 H, Creatinine 1.21 H, Estim Creat Clear Calc 37.36, Est GFR (MDRD) Af Amer 57 L, Est GFR (MDRD) Non-Af 47 L, BUN/Creatinine Ratio 17.4, Glucose 153 H, Calcium 8.7, Magnesium 0.7 L* 06/21/21 18:15: WBC 3.2 L, RBC 3.97 L, Hgb 12.0, Hct 34.9 L, MCV 87.9, MCH 30.2, MCHC 34.4, RDW Std Deviation 43.2, RDW Coeff of Mitzy 13.3, Plt Count 195, MPV 9.3, Immature Gran % (Auto) 0.600, Neut % (Auto) 80.6 H, Lymph % (Auto) 17.0 L, [place] % (Auto) 0.9, Eos % (Auto) 0.6, Baso % (Auto) 0.3, Absolute Neuts (auto) 2.6, Absolute Lymphs (auto) 0.55 L, Nucleated RBC % 0, Differential Comment SCANNED, Diff Path Review July06/21/21 21:50: APTT 65.7 H 06/21/21 22:27: POC Glucose 168 H 06/22/21 04:06: WBC 22.7 H, RBC 3.51 L, Hgb 10.6 L, Hct 31.1 L, MCV 88.6, MCH 30.2, MCHC 34.1, RDW Std Deviation 44.0 H, RDW Coeff of Mitzy 13.6, Plt Count 183, MPV 9.8, Immature Gran % (Auto) 1.100 H, Neut % (Auto) 86.8 H, Lymph % (Auto) 6.4 L, [place] % (Auto) 5.2, Eos % (Auto) 0.1, Baso % (Auto) 0.4, Absolute Neuts (auto) 19.7 H, Absolute Lymphs (auto) 1.45, Nucleated RBC % 0 06/22/21 04:06: Sodium 138, Potassium 2.5 L*, Chloride 100, Carbon Dioxide 31.0, Anion Gap 7, BUN 27 H, Creatinine 1.44 H, Estim Creat Clear Calc 31.39, Est GFR (MDRD) Af Amer 46 L, Est GFR (MDRD) Non-Af 38 L, BUN/Creatinine Ratio 18.8, Glucose 166 H, Calcium 7.9 L, Magnesium 2.3 06/22/21 04:06: APTT 79.3 H 06/22/21 06:30: POC Glucose 203 H 06/22/21 10:23: APTT 58.0 H 06/22/21 11:25: Urine Color Yellow, Urine Clarity Sl. 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 No evidence for diastolic dysfunction. Aortic sclerosis, no stenosis. Ordering Physician: Kam Rice Referring Physician: Kaz Cervantes Performed By: David Johnson RCS Chest X-Ray 06/21/21 18:20 Physical Exam Const alert and no apparent distress Resp normal respiratory effort, no retractions, no use of accessory muscles and clear to auscultation bilaterally Cardio regular rate, regular rhythm, S1 normal heart sound and S2 normal heart sound GI normal to inspection, nondistended, normoactive bowel sounds, soft to palpation, non-tender and non-distended Extremity normal to inspection Skin no rashes or lesions noted Neuro Sensorium / Orientation: awake and alert Psych affect normal Assessment & Plan Assessment/Plan (1) Non-STEMI (non-ST elevated myocardial infarction): (2) Hypokalemia: (3) Bacteremia: (4) (HFpEF) heart failure with preserved ejection fraction: QUALIFIERS: Heart failure chronicity: acute Qualified Code(s): I50.31 - Acute diastolic (congestive) heart failure (5) Hypertensive urgency: (6) Acute respiratory failure with hypoxia: PLAN: 1. non ST elevation myocardial infarction Continue with heparin drip Patient did receive aspirin in the emergency room Consult cardiology Echo showed EF of 60% 2. Hypokalemia Complicated by hypomagnesemia Continue to replace 3. Acute heart failure with preserved ejection fraction Complicated by flash pulmonary edema Continue with furosemide Repeat chest x-ray showed pulmonary vascular congestion which was likely due to hypertensive urgency 4. Bacteremia Gram-negative rods Continue pip/tazo 5. Acute hypoxic respiratory failure Secondary to #3 Improving Wean oxygen as able 6. Diabetes type II Continued mixed insulin regiment and sliding scale insulin. 7. VTE prophylaxis: Not indicated as patient will be anticoagulated 8. COVID-19 vaccination status: Patient has been vaccinated and boosted with Pfizer. No recent COVID-19 contacts. 9. CODE STATUS: Addressed with patient. Patient is full CODE STATUS. Charges/Coding Visit Charges Inpatient E&M: 40098 Subs Hosp L3
[2021-06-22 12:48] LABS: Anion Gap 6 (5-15); BUN 28 mg/dL (7-18); BUN/Creat Ratio 19.9 RATIO (10-20); Calcium,Total 8.3 mg/dL (8.5-10.1); Chloride 102 mmol/L (98-107); Creatinine, Serum 1.41 mg/dL (0.55-1.02); EST Glomerular Filtration Rate 39 mL/min (>60); Est Glom Filt Rate - Afr Amer 47 mL/min (>60); Estimated Creatinine Clearance 32.06 ml/min; Glucose 150 mg/dL (74-106); Sodium Level 138 mmol/L (136-145)
[2021-06-22 12:57] LABS: Pathologist Review Reviewed
--- NOTE | 2021-06-22 14:03 | CASEMGMT ---
Per Elizabeth RN, pt does not qualify for increased home oxygen at this time but does c/o increased weakness. PT/OT ordered for pt at this time. CM to follow. Green sheet left on chart for increased home oxygen need. Paulo MARIA CM
--- NOTE | 2021-06-22 14:23 | PCM.PN.CARD ---
Subjective Subjective Shortness of breath has improved. No chest pain. 2D echo revealed preserved EF. No significant wall motion abnormalities. Objective Data Vital Signs: Vital Signs Temp Pulse Resp BP Pulse Ox 97.8 F 71 18 112/58 L 96 06/22/21 11:00 06/22/21 11:00 06/22/21 11:00 06/22/21 11:00 06/22/21 11:33 Oxygen Flow Rate (L/min) [ 2 AMBULATING with Oxygen #1] Oxygen Flow Rate (L/min) [At 2 REST with Oxygen] Oxygen Flow Rate (L/min) 2 Oxygen Delivery Method Nasal Cannula Weight: 248 lb 14.43 oz Body Mass Index (BMI) 43.2 Intake & Output: Intake and Output for Last 24 Hours 06/20/21 06/21/21 06/22/21 23:59 23:59 23:59 Intake Total 755.66 / 755.66 1362.42 / 1362.42 Output Total 1500 / 1500 550 / 550 Balance -744.34 / -744.34 812.42 / 812.42 Lab / Micro Data Result Diagrams: 06/22/21 04:06 06/22/21 12:05 Labs: Laboratory Results - last 24 hr 06/21/21 15:46: POC Glucose 134 H 06/21/21 17:52: Sodium 139, Potassium 2.6 L*, Chloride 101, Carbon Dioxide 28.0, Anion Gap 10, BUN 21 H, Creatinine 1.21 H, Estim Creat Clear Calc 37.36, Est GFR (MDRD) Af Amer 57 L, Est GFR (MDRD) Non-Af 47 L, BUN/Creatinine Ratio 17.4, Glucose 153 H, Calcium 8.7, Magnesium 0.7 L* 06/21/21 18:15: WBC 3.2 L, RBC 3.97 L, Hgb 12.0, Hct 34.9 L, MCV 87.9, MCH 30.2, MCHC 34.4, RDW Std Deviation 43.2, RDW Coeff of [place] 13.3, Plt Count 195, MPV 9.3, Immature Gran % (Auto) 0.600, Neut % (Auto) 80.6 H, Lymph % (Auto) 17.0 L, [place] % (Auto) 0.9, Eos % (Auto) 0.6, Baso % (Auto) 0.3, Absolute Neuts (auto) 2.6, Absolute Lymphs (auto) 0.55 L, Nucleated RBC % 0, Differential Comment SCANNED, Diff Path Review Reviewed 06/21/21 21:50: APTT 65.7 H 06/21/21 22:27: POC Glucose 168 H 06/22/21 04:06: WBC 22.7 H, RBC 3.51 L, Hgb 10.6 L, Hct 31.1 L, MCV 88.6, MCH 30.2, MCHC 34.1, RDW Std Deviation 44.0 H, RDW Coeff of [place] 13.6, Plt Count 183, MPV 9.8, Immature Gran % (Auto) 1.100 H, Neut % (Auto) 86.8 H, Lymph % (Auto) 6.4 L, [place] % (Auto) 5.2, Eos % (Auto) 0.1, Baso % (Auto) 0.4, Absolute Neuts (auto) 19.7 H, Absolute Lymphs (auto) 1.45, Nucleated RBC % 0 06/22/21 04:06: Sodium 138, Potassium 2.5 L*, Chloride 100, Carbon Dioxide 31.0, Anion Gap 7, BUN 27 H, Creatinine 1.44 H, Estim Creat Clear Calc 31.39, Est GFR (MDRD) Af Amer 46 L, Est GFR (MDRD) Non-Af 38 L, BUN/Creatinine Ratio 18.8, Glucose 166 H, Calcium 7.9 L, Magnesium 2.3 06/22/21 04:06: APTT 79.3 H 06/22/21 06:30: POC Glucose 203 H 06/22/21 10:23: APTT 58.0 H 06/22/21 11:25: Urine Color Yellow, Urine Clarity Sl. Cloudy, Urine pH 5.0, Ur Specific [place] 1.015, Urine Protein 30 H, Urine Glucose (UA) Normal, Urine Ketones Negative, Urine Occult Blood 25 H, Urine Nitrite Negative, Urine Bilirubin Negative, Urine Urobilinogen Normal, Ur Leukocyte Esterase 500 H, Urine RBC 5-10 SEEN, Urine WBC 25-50 SEEN, Ur Squamous Epith Cells 0-5 SEEN, Urine Bacteria 2+, Urine Mucus 0 SEEN 06/22/21 11:47: POC Glucose 149 H 06/22/21 12:05: Sodium 138, Potassium 3.0 L, Chloride 102, Carbon Dioxide 30.0, Anion Gap 6, BUN 28 H, Creatinine 1.41 H, Estim Creat Clear Calc 32.06, Est GFR (MDRD) Af Amer 47 L, Est GFR (MDRD) Non-Af 39 L, BUN/Creatinine Ratio 19.9, Glucose 150 H, Calcium 8.3 L Micro: Microbiology 06/21/21 03:30 Blood Culture (Wb) #2 - Right Hand Blood Culture - 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 06/21/21 03:34 Blood Culture (Wb) - Left Forearm Blood Culture - 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 ABG Data ABG results: ABG 06/21/21 18:04 Specimen Type ART pH 7.43 Bicarbonate Actual 28.0 H Total CO2 29 Base Excess 4 H O2 Saturation 97 O2 % 100 ABG pCO2 42.7 ABG pO2 88 [place] Test Positive O2 Delivery Device NRB Cardiology Labs/Tests 06/21/21 17:52: Sodium 139, Potassium 2.6 L*, Chloride 101, Carbon Dioxide 28.0, Anion Gap 10, BUN 21 H, Creatinine 1.21 H, Est GFR (MDRD) Af Amer 57 L, Est GFR (MDRD) Non-Af 47 L, BUN/Creatinine Ratio 17.4, Glucose 153 H, Calcium 8.7, Magnesium 0.7 L* 06/21/21 18:04: pH 7.43, Bicarbonate Actual 28.0 H, Base Excess 4 H, O2 Saturation 97, ABG pCO2 42.7, ABG pO2 88, [place] Test Positive 06/21/21 18:15: WBC 3.2 L, RBC 3.97 L, Hgb 12.0, Hct 34.9 L, MCV 87.9, MCH 30.2, MCHC 34.4, Plt Count 195, MPV 9.3, Immature Gran % (Auto) 0.600, Neut % (Auto) 80.6 H, Lymph % (Auto) 17.0 L, [place] % (Auto) 0.9, Eos % (Auto) 0.6, Baso % (Auto) 0.3, Absolute Neuts (auto) 2.6, Nucleated RBC % 0 06/21/21 21:50: APTT 65.7 H 06/22/21 04:06: WBC 22.7 H, RBC 3.51 L, Hgb 10.6 L, Hct 31.1 L, MCV 88.6, MCH 30.2, MCHC 34.1, Plt Count 183, MPV 9.8, Immature Gran % (Auto) 1.100 H, Neut % (Auto) 86.8 H, Lymph % (Auto) 6.4 L, [place] % (Auto) 5.2, Eos % (Auto) 0.1, Baso % (Auto) 0.4, Absolute Neuts (auto) 19.7 H, Nucleated RBC % 0 06/22/21 04:06: Sodium 138, Potassium 2.5 L*, Chloride 100, Carbon Dioxide 31.0, Anion Gap 7, BUN 27 H, Creatinine 1.44 H, Est GFR (MDRD) Af Amer 46 L, Est GFR (MDRD) Non-Af 38 L, BUN/Creatinine Ratio 18.8, Glucose 166 H, Calcium 7.9 L, Magnesium 2.3 06/22/21 04:06: APTT 79.3 H 06/22/21 10:23: APTT 58.0 H 06/22/21 11:25: Urine Color Yellow, Urine Clarity Sl. Cloudy, Urine pH 5.0, Ur Specific [place] 1.015, Urine Protein 30 H, Urine Glucose (UA) Normal, Urine Ketones Negative, Urine Occult Blood 25 H, Urine Nitrite Negative, Urine Bilirubin Negative, Urine Urobilinogen Normal, Ur Leukocyte Esterase 500 H, Urine RBC 5-10 SEEN, Urine WBC 25-50 SEEN 06/22/21 12:05: Sodium 138, Potassium 3.0 L, Chloride 102, Carbon Dioxide 30.0, Anion Gap 6, BUN 28 H, Creatinine 1.41 H, Est GFR (MDRD) Af Amer 47 L, Est GFR (MDRD) Non-Af 39 L, BUN/Creatinine Ratio 19.9, Glucose 150 H, Calcium 8.3 L Rhythm: EKG: ECHO: Stress Test: Cardiac Cath: PCI: CT Surgery: Holter monitor: EPS: PPM: CXR: Chest CT Scan: Radiography Diagnostic Testing: Radiology Impression Echocardiogram 06/21/21 16:13 Interpretation Summary The estimated ejection fraction is 60 %. No evidence for diastolic dysfunction. Aortic sclerosis, no stenosis. Ordering Physician: Kam Rice Referring Physician: Kaz Cervantes Performed By: David Johnson RCS Chest X-Ray 06/21/21 18:20 Physical Exam Const alert and oriented x3 Orientation / Consciousness: awake HEENT normocephalic Eyes no scleral icterus Neck supple Chest inspection of chest normal Resp normal respiratory effort and clear to auscultation bilaterally Cardio regular rate Extremity General Extremity: edema bilateral lower extremity Neuro oriented x3 Psych mental status grossly normal Assessment & Plan Assessment/Plan (1) Non-STEMI (non-ST elevated myocardial infarction): PLAN: Appears to be type II [place] secondary to hypoxemic respiratory failure in addition to underlying mild CAD. 2D echo reveals no significant regional wall motion abnormalities. At this time it is reasonable not to proceed with coronary artery evaluation during this admission. She has an outpatient nuclear stress test scheduled according to her. I think it is reasonable to proceed in this direction (outpatient nuclear stress test). (2) Acute respiratory failure with hypoxia: PLAN: Respiratory failure is likely secondary to her COPD exacerbation. Patient has chronic lower extremity edema. Creatinine is going up. Reasonable to hold Lasix for now. May also consider gentle hydration. Charges/Coding Visit Charges Inpatient E&M: 63130 Subs Hosp L2
[2021-06-22] MEDS: Potassium Chloride Oral Tablet 20 MEQ 40 MEQ PO (14:33)
[2021-06-22 16:41] LABS: Bedside Glucose 168 mg/dL (74-106)
[2021-06-22] MEDS: Citalopram 40 MG TABLET PO (21:04)
[2021-06-22] MEDS: Losartan Potassium 100 MG Tablet PO (21:04)
[2021-06-22] MEDS: Insulin Human 75/25 Kwickpen 90 UNIT SC (21:09)
[2021-06-22 21:26] LABS: Bedside Glucose 211 mg/dL (74-106)
[2021-06-23] VITALS (19 sets, daily range): BP systolic 113–177; BP diastolic 58–84; PULSE 72–94; RESP 18–20; TEMP 36.4–38.4; O2SAT 90–99
[2021-06-23 05:31] LABS: Bedside Glucose 90 mg/dL (74-106)
[2021-06-23 06:30] LABS: Absolute Neutrophil Count 11.5 X10^3/uL (2.0-7.7); Basophil# 0.04 X10^3/uL; Basophil% 0.3 % (0-1); Eosinophil# 0.16 X10^3/uL; Eosinophils% 1.2 % (0-5); Hematocrit 33.6 % (37-47); Hemoglobin 11.5 g/dL (12.0-15.0); Lymphocyte % 5.9 % (19-41); Mean Corp Hgb Conc 34.2 g/dL (32-36); Mean Corpuscular Hgb 29.9 pg (27.0-32.0); Mean Corpuscular Volume 87.5 fL (81-99); Mean Platelet Vol. 10.1 fl (6.2-12.0); Monocyte% 6.6 % (0-10); NRBC Flagged by Analyzer 0 % (0-5); Neutrophil # 11.45 X10^3/uL (2.7-7.7); Neutrophil % 84.6 % (47-70); Platelet Count 194 K/mm3 (150-450); RBC Distribution Width CV 13.4 % (11.6-14.6); RBC Distribution Width SD 43.2 fl (35.1-43.9); Red Blood Count 3.84 M/mm3 (4.2-5.4); White Blood Count 13.5 K/mm3 (4.4-11.0)
[2021-06-23 06:44] LABS: Partial Thromboplast Time 45.9 Seconds (24.1-36.2)
[2021-06-23] MEDS: Heparin Injection (Vial) 5,000 UNIT/ML VIAL IV (06:51)
[2021-06-23 06:58] LABS: Anion Gap 6 (5-15); BUN 22 mg/dL (7-18); BUN/Creat Ratio 20.6 RATIO (10-20); Calcium,Total 8.4 mg/dL (8.5-10.1); Chloride 102 mmol/L (98-107); Creatinine, Serum 1.07 mg/dL (0.55-1.02); EST Glomerular Filtration Rate 54 mL/min (>60); Est Glom Filt Rate - Afr Amer 65 mL/min (>60); Estimated Creatinine Clearance 42.25 ml/min; Glucose 84 mg/dL (74-106); Potassium 3.1 mmol/L (3.5-5.1); Sodium Level 138 mmol/L (136-145)
[2021-06-23] MEDS: Acetaminophen 500 MG Tablet 1000 MG PO (08:47)
[2021-06-23] MEDS: hydroCHLOROthiazide 25 MG Tablet PO (08:47)
[2021-06-23] MEDS: Enoxaparin 40 MG/0.4 ML Syringe SC (08:47)
[2021-06-23] MEDS: Potassium Chloride Oral Tablet 20 MEQ 40 MEQ PO ×2 (08:48→16:49)
[2021-06-23] MEDS: Isosorbide Mononitrate 30 MG Tablet PO (08:49)
[2021-06-23] MEDS: Pramipexole Di-HCl 1 MG Tablet 1.5 MG PO ×2 (08:49→21:28)
[2021-06-23] MEDS: DULoxetine Hcl 30 MG Capsule PO ×2 (08:49→21:28)
[2021-06-23] MEDS: Insulin Human 75/25 Kwickpen 70 UNIT SC (08:49)
[2021-06-23] MEDS: Aspirin E.C. 81 MG Tablet PO (08:49)
[2021-06-23] MEDS: Pantoprazole Sodium 40 MG Tablet PO (08:49)
--- NOTE | 2021-06-23 09:12 | PCM.PN.CARD ---
Subjective Subjective The patient is awake and alert. She reiterates that her main concern at home was that she felt short of breath and dyspneic. She denies ongoing chest discomfort. Objective Data Vital Signs: Vital Signs Temp Pulse Resp BP Pulse Ox 101.2 F H 94 20 H 163/80 H 94 06/23/21 08:32 06/23/21 08:32 06/23/21 08:32 06/23/21 08:32 06/23/21 08:32 Oxygen Flow Rate (L/min) [ 2 AMBULATING with Oxygen #1] Oxygen Flow Rate (L/min) [At 2 REST with Oxygen] Oxygen Flow Rate (L/min) 2 Oxygen Delivery Method Nasal Cannula Weight: 251 lb 15.814 oz Body Mass Index (BMI) 43.2 Intake & Output: Intake and Output for Last 24 Hours 06/21/21 06/22/21 06/23/21 23:59 23:59 23:59 Intake Total 755.66 / 755.66 2051.24 / 2331.24 834.02 / 834.02 Output Total 1500 / 1500 550 / 630 500 / 500 Balance -744.34 / -744.34 1501.24 / 1701.24 334.02 / 334.02 Lab / Micro Data Result Diagrams: 06/23/21 06:11 06/23/21 06:11 Labs: Laboratory Results - last 24 hr 06/21/21 18:15: Diff Path Review Reviewed 06/22/21 10:23: APTT 58.0 H 06/22/21 11:25: Urine Color Yellow, Urine Clarity Sl. Cloudy, Urine pH 5.0, Ur Specific [place] 1.015, Urine Protein 30 H, Urine Glucose (UA) Normal, Urine Ketones Negative, Urine Occult Blood 25 H, Urine Nitrite Negative, Urine Bilirubin Negative, Urine Urobilinogen Normal, Ur Leukocyte Esterase 500 H, Urine RBC 5-10 SEEN, Urine WBC 25-50 SEEN, Ur Squamous Epith Cells 0-5 SEEN, Urine Bacteria 2+, Urine Mucus 0 SEEN 06/22/21 11:47: POC Glucose 149 H 06/22/21 12:05: Sodium 138, Potassium 3.0 L, Chloride 102, Carbon Dioxide 30.0, Anion Gap 6, BUN 28 H, Creatinine 1.41 H, Estim Creat Clear Calc 32.06, Est GFR (MDRD) Af Amer 47 L, Est GFR (MDRD) Non-Af 39 L, BUN/Creatinine Ratio 19.9, Glucose 150 H, Calcium 8.3 L 06/22/21 16:33: POC Glucose 168 H 06/22/21 21:08: POC Glucose 211 H 06/23/21 05:21: POC Glucose 90 06/23/21 06:11: APTT 45.9 H 06/23/21 06:11: WBC 13.5 H, RBC 3.84 L, Hgb 11.5 L, Hct 33.6 L, MCV 87.5, MCH 29.9, MCHC 34.2, RDW Std Deviation 43.2, RDW Coeff of [place]zy 13.4, Plt Count 194, MPV 10.1, Immature Gran % (Auto) 1.400 H, Neut % (Auto) 84.6 H, Lymph % (Auto) 5.9 L, [place] % (Auto) 6.6, Eos % (Auto) 1.2, Baso % (Auto) 0.3, Absolute Neuts (auto) 11.5 H, Absolute Lymphs (auto) 0.80 L, Nucleated RBC % 0 06/23/21 06:11: Sodium 138, Potassium 3.1 L, Chloride 102, Carbon Dioxide 30.0, Anion Gap 6, BUN 22 H, Creatinine 1.07 H, Estim Creat Clear Calc 42.25, Est GFR (MDRD) Af Amer 65, Est GFR (MDRD) Non-Af 54 L, BUN/Creatinine Ratio 20.6 H, Glucose 84, Calcium 8.4 L Micro: Microbiology 06/21/21 03:30 Blood Culture (Wb) #2 - Right Hand Blood Culture - Final Presumptive E. coli 06/21/21 03:34 Blood Culture (Wb) - Left Forearm Blood Culture - Preliminary Escherichia coli Cardiology Labs/Tests 06/22/21 10:23: APTT 58.0 H 06/22/21 11:25: Urine Color Yellow, Urine Clarity Sl. Cloudy, Urine pH 5.0, Ur Specific [place] 1.015, Urine Protein 30 H, Urine Glucose (UA) Normal, Urine Ketones Negative, Urine Occult Blood 25 H, Urine Nitrite Negative, Urine Bilirubin Negative, Urine Urobilinogen Normal, Ur Leukocyte Esterase 500 H, Urine RBC 5-10 SEEN, Urine WBC 25-50 SEEN 06/22/21 12:05: Sodium 138, Potassium 3.0 L, Chloride 102, Carbon Dioxide 30.0, Anion Gap 6, BUN 28 H, Creatinine 1.41 H, Est GFR (MDRD) Af Amer 47 L, Est GFR (MDRD) Non-Af 39 L, BUN/Creatinine Ratio 19.9, Glucose 150 H, Calcium 8.3 L 06/23/21 06:11: APTT 45.9 H 06/23/21 06:11: WBC 13.5 H, RBC 3.84 L, Hgb 11.5 L, Hct 33.6 L, MCV 87.5, MCH 29.9, MCHC 34.2, Plt Count 194, MPV 10.1, Immature Gran % (Auto) 1.400 H, Neut % (Auto) 84.6 H, Lymph % (Auto) 5.9 L, [place] % (Auto) 6.6, Eos % (Auto) 1.2, Baso % (Auto) 0.3, Absolute Neuts (auto) 11.5 H, Nucleated RBC % 0 06/23/21 06:11: Sodium 138, Potassium 3.1 L, Chloride 102, Carbon Dioxide 30.0, Anion Gap 6, BUN 22 H, Creatinine 1.07 H, Est GFR (MDRD) Af Amer 65, Est GFR (MDRD) Non-Af 54 L, BUN/Creatinine Ratio 20.6 H, Glucose 84, Calcium 8.4 L Rhythm: Sinus rhythm ECHO: 06-21-2021: As noted below Interpretation Summary The estimated ejection fraction is 60 %. No evidence for diastolic dysfunction. Aortic sclerosis, no stenosis. Echocardiogram: 08-17-2020 Interpretation Summary The study was technically difficult. Contrast injection was performed. Based upon the 2D echocardiographic and contrast enhanced images obtained there appears to be grossly normal left ventricular size, wall motion, and systolic function. The estimated ejection fraction is 55 %. Trivial mitral valve insufficiency. Trivial tricuspid valve insufficiency. Mild focal aortic valve calcification. Trivial pulmonic valve insufficiency. Mildly dilated aortic root. Right ventricular systolic pressure estimated to be 45 mmHg. There is evidence of diastolic dysfunction. Transesophageal echocardiogram: 04-08-2017 Interpretation Summary Left ventricular systolic function is normal. The estimated ejection fraction is 60 %. The left atrium is mildly enlarged. There is no sponatenous contrast in the left atrium. No thrombus is detected in the left atrial appendage. Probable chiari network. (Prominent) Mild (1+) mitral valve insufficiency. Mild tricuspid valve insufficiency. Positive color flow doppler for bidirectional interatrial shunt (predominantly left to right) appearing c/w a prominent PFO. Positive agitated saline contrast study for a right to left interatrial shunt c/w PFO. Mild atherosclerosis of the descending aorta. Echocardiogram: 02-07-2017 The study was technically difficult Contrast injection was performed Left ventricular systolic function is normal The estimated ejection fraction is 65% Mildly dilated right ventricle Trivial mitral valve insufficiency Mild tricuspid valve insufficiency Positive agitated saline contrast study for interatrial shunt (bidirectional) Unable to estimate RV systolic pressure/pulmonary artery pressure due to technically difficult study 2D echocardiographic images demonstrate findings potentially compatible with a hypermobile interatrial septum and a vague mobile echodensity in the right atrium of uncertain etiology with a differential diagnosis including thrombus, however, other etiologies of mobile echodensities cannot be excluded Consider further evaluation with a MARIELLA if clinically indicated Stress Test: Stress Test Report: Date: 11/05/2016 Procedure: Pharmacologic stress nuclear imaging study Indications: Chest pain Consent: Per the patient Procedure: The patient underwent pharmacologic (regadenoson) evaluation with a peak heart rate of 69 bpm (44% predicted maximal heart rate) with a peak blood pressure of 140/78 mmHg. The baseline ECG demonstrated normal sinus rhythm. The peak pharmacologic ECG demonstrated no obvious ECG changes. There were no cardiac dysrhythmias pretest, during pharmacologic infusion, or recovery. There was no report of chest discomfort during pharmacologic infusion or recovery. The examination was discontinued secondary to completion of protocol. Impression: 1. Pharmacologic (regadenoson) evaluation 2. Peak pharmacologic ECG with no obvious ECG changes 3. Nuclear images pending Myocardial perfusion imaging study: Technique: The patient was injected with 14.6 mCi of [employer] 99m Cardiolite and subsequently rest SPECT Cardiolite nuclear imaging was obtained in the horizontal long, vertical long, and short axis views. The patient underwent pharmacologic (regadenoson) evaluation with a peak heart rate of 69 bpm (44% predicted maximal heart rate) with a peak blood pressure of 140/78 mmHg. The patient was injected with 44.1 mCi of [employer] 99m Cardiolite and subsequently stress SPECT Cardiolite nuclear imaging was obtained in the horizontal long, vertical long, and short axis views. The gated Cardiolite study at peak stress was obtained. Interpretation: Rest and stress SPECT Cardiolite nuclear imaging status post realignment, normalization, and attenuation correction demonstrates the appearance of relative uniform tracer uptake and myocardial perfusion appearing within normal limits. There is end systolic thickening and brightening. The gated Cardiolite study demonstrates myocardial thickening and inward wall motion. The reported LVEF is 66%. Impression: 1. Rest and stress SPECT Cardiolite nuclear imaging mistreating relative uniform tracer uptake and myocardial perfusion appearing within normal limits. 2. The gated Cardiolite study reports an LVEF of 66%. Cardiac Cath: 11-13-2017: [facility] Right heart catheterization: RA mean pressure: 15 mmHg RV pressure: 51/18 mmHg PA pressure: 44/25 mmHg PA mean pressure: 27 mmHg Pulmonary capillary wedge pressure mean: 20 mmHg Left atrial pressure: 18 mmHg LVEDP: 28 mmHg Dani cardiac output/cardiac index: 7.4/3.5 PVR: 1.0 RAMOS SVR: 8.9 RAMOS QP/QS: 1 O2 saturations: On room air SVC: 72% IVC: 78% PA: 72% LA: 97% Ao: 96% Coronary angiogram: Right dominant circulation Heavily calcified vessels Mild to moderate diffuse calcific CAD as follows: 30% distal left main 20% proximal RCA 40% proximal mid LAD 20% proximal LCx Impression: Biventricular diastolic dysfunction Mild pulmonary hypertension (WHO Group 2)-secondary to left heart diastolic dysfunction Nonobstructive calcific CAD Plan: Would not recommend closure of ASD given lack of significant shunt and high diastolic filling pressures No PAH medications indicated Start Imdur 30 mg daily Stop chlorthalidone; start Lasix 40 mg daily Aggressive risk factor management for CAD with statin, aspirin, lifestyle modification Radiography Diagnostic Testing: Radiology Impression Echocardiogram 06/21/21 16:13 Interpretation Summary The estimated ejection fraction is 60 %. No evidence for diastolic dysfunction. Aortic sclerosis, no stenosis. Ordering Physician: Kam Rice Referring Physician: Kaz Cervantes Performed By: David Johnson RCS Physical Exam Const alert and oriented x3 Orientation / Consciousness: awake HEENT normocephalic, head/scalp atraumatic and hearing grossly normal bilaterally Eyes PERRL, EOMs intact bilaterally and conjunctivae normal Neck full ROM, supple and no JVD Resp clear to auscultation bilaterally Cardio regular rate, regular rhythm, S1 normal heart sound and S2 normal heart sound Heart Sounds: murmur systolic II/ soft mid left sternal border GI normal to inspection, nondistended, normoactive bowel sounds Extremity no pedal edema Skin no rashes or lesions noted Psych mental status grossly normal Assessment & Plan Assessment/Plan (1) Non-STEMI (non-ST elevated myocardial infarction): PLAN: The patient has had abnormal troponin I levels which have increased and then decreased. She has been reported as having no acute electrocardiographic changes. She does not describe at this time ongoing symptoms of classic angina pectoris. There has been concern that her abnormal troponin I levels may be a type II non-ST segment elevation [place] secondary to her underlying noncardiac issues with respect to her underlying pulmonary disease issues and/or bacteremia/sepsis issues. At the moment she is being monitored. She has undergone noninvasive valuation with transthoracic echocardiogram with the results as noted. Her previous [facility] and [facility] cardiovascular studies have been reviewed and are noted. She has continued medical management which has included aspirin, nitrates, diuretics, afterload reducing agents, and anticoagulant therapy with enoxaparin/Lovenox. It would not be unreasonable barring some contraindication to consider the addition of other agents such as beta-blockers and lipid-lowering agents such as statins-however, she reports an intolerance to statins/pravastatin. Depending upon her clinical course she may need additional noninvasive evaluation such as a pharmacologic stress nuclear imaging study once her noncardiovascular issues have resolved and/or potential future reevaluation in the cardiac catheterization laboratory, however, consideration would have to be given as to where such a procedure would be performed based upon her previous studies demonstrating what appears to be significant coronary artery calcification that if catheter-based revascularization were required it may require procedures such as atherectomy or Rotablator which would have to be performed at a tertiary care center. (2) Atherosclerosis of [place] coronary artery of [place] heart without angina pectoris: PLAN: Her CAD history was reviewed. Again she is being monitored. She has undergone noninvasive valuation. She will continue medical management at this time. Consideration will be given in the future for further noninvasive and invasive studies when she has recuperated from her current noncardiovascular issues. (3) (HFpEF) heart failure with preserved ejection fraction: QUALIFIERS: Heart failure chronicity: acute Qualified Code(s): I50.31 - Acute diastolic (congestive) heart failure PLAN: She has had a history of heart failure with preserved ejection fraction. She should continue medical therapy with adjustment of diuretics and other medications as deemed appropriate as her course progresses. (4) Atrial septal defect: PLAN: She has undergone extensive evaluation at [facility] for concerns of her interatrial shunt. The recommendation was for no closure of her interatrial shunt but continued medical management for concerns of decreased diastolic compliance as well as cardiovascular risk factor modification and care. (5) Hyperlipidemia: QUALIFIERS: Hyperlipidemia type: unspecified Qualified Code(s): E78.5 - Hyperlipidemia, unspecified PLAN: She should continue attempts at lipid-lowering therapy as best as possible. If she cannot tolerate statins perhaps she can tolerate other agents such as Zetia. (6) Hypertension: PLAN: Her blood pressure does need to be monitored with continued adjustment of her medications to assist with her blood pressure control. (7) SOB (shortness of breath): PLAN: Her main concern was shortness of breath. There are concerns that this is not all cardiovascular related. She will continue evaluation care per internal medicine for noncardiovascular issues. (8) Bacteremia: PLAN: She has been reported as having positive fevers and positive bacteremia. She is continuing medical therapy with antibiotic therapy. (9) Hypokalemia: PLAN: She has been noted to have hypokalemia. To new electrolyte supplementation. Addt'l Comments The patient's case has been discussed and reviewed with the patient and previously with Dr. Rice of interventional cardiology. This note was generated using a voice recognition system and there may be incorrect words, spelling or punctuation that were not noted when reviewing the office note prior to saving. Procedure Criteria Type of Procedure Procedure Type: Elective Elective Risks - COVID COVID Risk Discussion: The surgeon/proceduralist and patient have discussed in detail the risk of exposure to and/or potential harm posed by the COVID-19 virus with having a surgery/procedure at this time versus the risk of delaying the surgery/procedure. It is not possible to know either the risk of delaying the surgery or procedure or chance of getting an infection with perfect accuracy, but a joint decision was made between the patient and the surgeon/proceduralist to proceed at this time with the scheduled surgery/procedure as indicated on the consent form.
--- NOTE | 2021-06-23 09:39 | CASEMGMT ---
CANDACE CM in to pt room, pt lying in bed with O2 on. Pt states she is currently going to [facility] for therapy and she would like to resume this. She states she did well with therapy but she is weak. Made her aware script will be placed on chart for therapy. If she feels she cannot go to therapy, she is aware that she can call her PCP to see if she would qualify for home therapy. Pt inquires about an aide at home to assist with bathing. Discussed bus aide options. Pt states she cannot afford this and denies need for info for this. No further needs at this time.
[2021-06-23] MEDS: Metoprolol Tartrate 25 MG Tablet PO ×2 (11:17→21:28)
[2021-06-23 11:46] LABS: Bedside Glucose 73 mg/dL (74-106)
--- NOTE | 2021-06-23 12:34 | PCM.PN.HOSP ---
Subjective Subjective Feels better. Notes that she just very weak in her legs. Objective Data Objective Data Vital Signs: Vital Signs Temp Pulse Resp BP Pulse Ox 36.7 C 94 20 H 163/80 H 92 06/23/21 09:32 06/23/21 11:17 06/23/21 08:32 06/23/21 11:17 06/23/21 11:19 Oxygen Flow Rate (L/min) [ 2 AMBULATING with Oxygen #1] Oxygen Flow Rate (L/min) [At 2 REST with Oxygen] Oxygen Flow Rate (L/min) 2 Oxygen Delivery Method Nasal Cannula Weight: 114.3 kg Body Mass Index (BMI) 43.2 Intake & Output: Intake and Output for Last 24 Hours 06/21/21 06/22/21 06/23/21 23:59 23:59 23:59 Intake Total 755.66 / 755.66 2051.24 / 2331.24 1020.02 / 1020.02 Output Total 1500 / 1500 550 / 630 900 / 900 Balance -744.34 / -744.34 1501.24 / 1701.24 120.02 / 120.02 Lab / Micro Data Result Diagrams: 06/23/21 06:11 06/23/21 06:11 Labs: Laboratory Results - last 24 hr 06/21/21 18:15: Diff Path Review Reviewed 06/22/21 12:05: Sodium 138, Potassium 3.0 L, Chloride 102, Carbon Dioxide 30.0, Anion Gap 6, BUN 28 H, Creatinine 1.41 H, Estim Creat Clear Calc 32.06, Est GFR (MDRD) Af Amer 47 L, Est GFR (MDRD) Non-Af 39 L, BUN/Creatinine Ratio 19.9, Glucose 150 H, Calcium 8.3 L 06/22/21 16:33: POC Glucose 168 H 06/22/21 21:08: POC Glucose 211 H 06/23/21 05:21: POC Glucose 90 06/23/21 06:11: APTT 45.9 H 06/23/21 06:11: WBC 13.5 H, RBC 3.84 L, Hgb 11.5 L, Hct 33.6 L, MCV 87.5, MCH 29.9, MCHC 34.2, RDW Std Deviation 43.2, RDW Coeff of Mitzy 13.4, Plt Count 194, MPV 10.1, Immature Gran % (Auto) 1.400 H, Neut % (Auto) 84.6 H, Lymph % (Auto) 5.9 L, [place] % (Auto) 6.6, Eos % (Auto) 1.2, Baso % (Auto) 0.3, Absolute Neuts (auto) 11.5 H, Absolute Lymphs (auto) 0.80 L, Nucleated RBC % 0 06/23/21 06:11: Sodium 138, Potassium 3.1 L, Chloride 102, Carbon Dioxide 30.0, Anion Gap 6, BUN 22 H, Creatinine 1.07 H, Estim Creat Clear Calc 42.25, Est GFR (MDRD) Af Amer 65, Est GFR (MDRD) Non-Af 54 L, BUN/Creatinine Ratio 20.6 H, Glucose 84, Calcium 8.4 L 06/23/21 11:41: POC Glucose 73 L Micro: Microbiology 06/21/21 03:30 Blood Culture (Wb) #2 - Right Hand Blood Culture - Final Presumptive E. coli 06/21/21 03:34 Blood Culture (Wb) - Left Forearm Blood Culture - Preliminary Escherichia coli 06/21/21 03:25 Nasal Secretion SARS-CoV-2 & FLU Antigen (Rapid) - Final Physical Exam Const alert and no apparent distress HEENT head/scalp atraumatic Head and Scalp: normocephalic Resp normal respiratory effort, no retractions, no use of accessory muscles and clear to auscultation bilaterally Cardio regular rate, regular rhythm, S1 normal heart sound and S2 normal heart sound GI normal to inspection, nondistended, normoactive bowel sounds, soft to palpation, non-tender and non-distended Extremity normal to inspection General Extremity: edema Skin no rashes or lesions noted Neuro Sensorium / Orientation: awake and alert Psych affect normal Assessment & Plan Assessment/Plan (1) Non-STEMI (non-ST elevated myocardial infarction): (2) Hypokalemia: (3) Bacteremia: (4) (HFpEF) heart failure with preserved ejection fraction: QUALIFIERS: Heart failure chronicity: acute Qualified Code(s): I50.31 - Acute diastolic (congestive) heart failure (5) Hypertensive urgency: (6) Acute respiratory failure with hypoxia: PLAN: 1. non ST elevation myocardial infarction Suspect type II event Patient did receive aspirin in the emergency room Consult cardiology Echo showed EF of 60% 2. Hypokalemia Initially complicated by hypomagnesemia Continue to replace 3. Acute heart failure with preserved ejection fraction Complicated by flash pulmonary edema Continue with furosemide Repeat chest x-ray showed pulmonary vascular congestion which was likely due to hypertensive urgency 4. Bacteremia Secondary to pansensitive E. coli. Unclear source of the E. coli. Discontinue pip/tazo and changed to levofloxacin and treat to the ninth 5. Acute hypoxic respiratory failure Secondary to #3 Improving Wean oxygen as able 6. Hypertensive urgency resolved 7. Diabetes type II Continued mixed insulin regiment and sliding scale insulin. 8. VTE prophylaxis: Enoxaparin 9. COVID-19 vaccination status: Patient has been vaccinated and boosted with [employer]. No recent COVID-19 contacts. 10. CODE STATUS: Addressed with patient. Patient is full CODE STATUS. 11. Debility: Patient states that she is too weak to go home. Was unable to walk 20 feet with therapy on the first. Charges/Coding Visit Charges Inpatient E&M: 00472 Subs Hosp L2
[2021-06-23] MEDS: levoFLOXacin 750 MG Tablet PO (14:21)
[2021-06-23 17:11] LABS: Bedside Glucose 96 mg/dL (74-106)
[2021-06-23] MEDS: Furosemide 40 MG Tablet PO (18:08)
--- NOTE | 2021-06-23 18:23 | NURSING ---
Reviewed charting with Taina Cervantes RN
[2021-06-23] MEDS: Losartan Potassium 100 MG Tablet PO (21:28)
[2021-06-23 21:41] LABS: Bedside Glucose 84 mg/dL (74-106)
[2021-06-23] MEDS: Citalopram 40 MG TABLET PO (22:03)
[2021-06-24] VITALS (14 sets, daily range): BP systolic 126–175; BP diastolic 42–93; PULSE 64–77; RESP 20; TEMP 36.2–37.7; O2SAT 92–98
[2021-06-24] MEDS: hydrALAZINE 20 MG/ML Vial 5 MG IV (04:16)
[2021-06-24] MEDS: Acetaminophen 500 MG Tablet 1000 MG PO ×2 (04:24→13:57)
[2021-06-24] MEDS: levoFLOXacin 750 MG Tablet PO (05:03)
[2021-06-24 06:45] LABS: Absolute Lymphocyte Count 0.87 X10^3/uL (0.83-4.51); Absolute Neutrophil Count 6.8 X10^3/uL (2.0-7.7); Basophil# 0.04 X10^3/uL; Basophil% 0.5 % (0-1); Eosinophil# 0.08 X10^3/uL; Eosinophils% 0.9 % (0-5); Hematocrit 34.8 % (37-47); Hemoglobin 11.5 g/dL (12.0-15.0); Lymphocyte # 0.87 X10^3/ul (0.83-4.51); Mean Corpuscular Hgb 29.6 pg (27.0-32.0); Mean Corpuscular Volume 89.5 fL (81-99); Mean Platelet Vol. 10.4 fl (6.2-12.0); Monocyte# 0.81 X10^3/uL; Monocyte% 9.3 % (0-10); NRBC Flagged by Analyzer 0 % (0-5); Neutrophil # 6.82 X10^3/uL (2.7-7.7); Neutrophil % 78.2 % (47-70); Platelet Count 206 K/mm3 (150-450); RBC Distribution Width CV 13.2 % (11.6-14.6); RBC Distribution Width SD 43.4 fl (35.1-43.9); Red Blood Count 3.89 M/mm3 (4.2-5.4); White Blood Count 8.7 K/mm3 (4.4-11.0)
[2021-06-24 06:51] LABS: Bedside Glucose 102 mg/dL (74-106)
[2021-06-24 07:21] LABS: Anion Gap 6 (5-15); BUN 15 mg/dL (7-18); BUN/Creat Ratio 16.3 RATIO (10-20); Calcium,Total 8.8 mg/dL (8.5-10.1); Chloride 99 mmol/L (98-107); Cholesterol 137 mg/dL (200); Creatinine, Serum 0.92 mg/dL (0.55-1.02); EST Glomerular Filtration Rate 64 mL/min (>60); Est Glom Filt Rate - Afr Amer 78 mL/min (>60); Estimated Creatinine Clearance 49.13 ml/min; Glucose 81 mg/dL (74-106); High Density Lipoprotein 28 mg/dL; Potassium 3.6 mmol/L (3.5-5.1); Sodium Level 135 mmol/L (136-145); Triglycerides 139 mg/dL; Very Low Density Lipoprotein 28 mg/dL (5-40)
[2021-06-24] MEDS: Isosorbide Mononitrate 30 MG Tablet PO (10:14)
[2021-06-24] MEDS: Metoprolol Tartrate 25 MG Tablet PO ×2 (10:14→20:57)
[2021-06-24] MEDS: Furosemide 40 MG Tablet PO ×2 (10:14→17:15)
[2021-06-24] MEDS: Pramipexole Di-HCl 1 MG Tablet 1.5 MG PO ×2 (10:14→20:56)
[2021-06-24] MEDS: Enoxaparin 40 MG/0.4 ML Syringe SC (10:15)
[2021-06-24] MEDS: Aspirin E.C. 81 MG Tablet PO (10:15)
[2021-06-24] MEDS: Potassium Chloride Oral Tablet 20 MEQ 40 MEQ PO ×2 (10:15→17:14)
[2021-06-24] MEDS: DULoxetine Hcl 30 MG Capsule PO ×2 (10:16→20:57)
[2021-06-24] MEDS: Pantoprazole Sodium 40 MG Tablet PO (10:16)
--- NOTE | 2021-06-24 11:09 | PCM.PN.HOSP ---
Subjective Subjective Feels well. No new events. Objective Data Objective Data Vital Signs: Vital Signs Temp Pulse Resp BP Pulse Ox 37.2 C 68 20 H 126/48 H 96 06/24/21 10:08 06/24/21 10:14 06/24/21 10:08 06/24/21 10:14 06/24/21 10:08 Oxygen Flow Rate (L/min) [ 2 AMBULATING with Oxygen #1] Oxygen Flow Rate (L/min) [At 2 REST with Oxygen] Oxygen Flow Rate (L/min) 2 Oxygen Delivery Method Nasal Cannula Weight: 110.994 kg Body Mass Index (BMI) 43.2 Intake & Output: Intake and Output for Last 24 Hours 06/22/21 06/23/21 06/24/21 23:59 23:59 23:59 Intake Total 2051.24 / 2331.24 1380.02 / 1380.02 Output Total 550 / 630 2250 / 2250 400 / 400 Balance 1501.24 / 1701.24 -869.98 / -869.98 -400 / -400 Lab / Micro Data Result Diagrams: 06/24/21 05:15 06/24/21 05:15 Labs: Laboratory Results - last 24 hr 06/23/21 11:41: POC Glucose 73 L 06/23/21 16:48: POC Glucose 96 06/23/21 21:18: POC Glucose 84 06/24/21 05:15: Sodium 135 L, Potassium 3.6, Chloride 99, Carbon Dioxide 30.0, Anion Gap 6, BUN 15, Creatinine 0.92, Estim Creat Clear Calc 49.13, Est GFR (MDRD) Af Amer 78, Est GFR (MDRD) Non-Af 64, BUN/Creatinine Ratio 16.3, Glucose 81, Calcium 8.8, Triglycerides 139, Cholesterol 137, LDL Cholesterol 81, VLDL Cholesterol 28, HDL Cholesterol 28 L 06/24/21 05:15: WBC 8.7, RBC 3.89 L, Hgb 11.5 L, Hct 34.8 L, MCV 89.5, MCH 29.6, MCHC 33.0, RDW Std Deviation 43.4, RDW Coeff of Mitzy 13.2, Plt Count 206, MPV 10.4, Immature Gran % (Auto) 1.100 H, Neut % (Auto) 78.2 H, Lymph % (Auto) 10.0 L, [place] % (Auto) 9.3, Eos % (Auto) 0.9, Baso % (Auto) 0.5, Absolute Neuts (auto) 6.8, Absolute Lymphs (auto) 0.87, Nucleated RBC % 0 06/24/21 06:29: POC Glucose 102 Micro: Microbiology 06/22/21 11:25 Urine, Clean Catch Urine Culture - Final Gram negative rubio 06/21/21 03:30 Blood Culture (Wb) #2 - Right Hand Blood Culture - Final Presumptive E. coli 06/21/21 03:34 Blood Culture (Wb) - Left Forearm Blood Culture - Preliminary Escherichia coli 06/21/21 03:25 Nasal Secretion SARS-CoV-2 & FLU Antigen (Rapid) - Final Physical Exam Const alert and no apparent distress Resp normal respiratory effort, no retractions, no use of accessory muscles and clear to auscultation bilaterally Cardio regular rate, regular rhythm, S1 normal heart sound and S2 normal heart sound GI normal to inspection, nondistended, normoactive bowel sounds, soft to palpation, non-tender and non-distended Extremity General Extremity: edema Skin no rashes or lesions noted, no wounds and skin turgor normal Neuro oriented x3 Sensorium / Orientation: awake and alert Psych affect normal Assessment & Plan Assessment/Plan (1) Non-STEMI (non-ST elevated myocardial infarction): (2) Hypokalemia: (3) Bacteremia: (4) (HFpEF) heart failure with preserved ejection fraction: QUALIFIERS: Heart failure chronicity: acute Qualified Code(s): I50.31 - Acute diastolic (congestive) heart failure (5) Hypertensive urgency: (6) Acute respiratory failure with hypoxia: PLAN: 1. non ST elevation myocardial infarction Suspect type II event Continue ASA Consult cardiology Echo showed EF of 60% Additional work up likely as outpt with cardiology follow 2. Hypokalemia Initially complicated by hypomagnesemia Continue to replace 3. Acute heart failure with preserved ejection fraction Complicated by flash pulmonary edema Continue with furosemide Repeat chest x-ray showed pulmonary vascular congestion which was likely due to hypertensive urgency 4. Bacteremia Secondary to pansensitive E. coli. Unclear source of the E. coli. Discontinue pip/tazo and changed to levofloxacin and treat to the ninth 5. Acute hypoxic respiratory failure Secondary to #3 Improving Wean oxygen as able 6. Hypertensive urgency resolved 7. Diabetes type II Continued mixed insulin regiment and sliding scale insulin. 8. VTE prophylaxis: Enoxaparin 9. COVID-19 vaccination status: Patient has been vaccinated and boosted with [employer]. No recent COVID-19 contacts. 10. CODE STATUS: Addressed with patient. Patient is full CODE STATUS. 11. Debility: Patient states that she is too weak to go home. Was unable to walk 20 feet with therapy on the first. Requires 2 person assist. Charges/Coding Visit Charges Inpatient E&M: 91714 Subs Hosp L2
--- NOTE | 2021-06-24 11:36 | PCM.PN.CARD ---
Subjective Subjective The patient states she still feels tired and fatigued. She has no acute complaints of ongoing chest discomfort or worsening shortness of breath or dyspnea at this time. Objective Data Vital Signs: Vital Signs Temp Pulse Resp BP Pulse Ox 99 F 68 20 H 126/48 H 96 06/24/21 10:08 06/24/21 10:14 06/24/21 10:08 06/24/21 10:14 06/24/21 10:08 Oxygen Flow Rate (L/min) [ 2 AMBULATING with Oxygen #1] Oxygen Flow Rate (L/min) [At 2 REST with Oxygen] Oxygen Flow Rate (L/min) 2 Oxygen Delivery Method Nasal Cannula Weight: 244 lb 11.2 oz Body Mass Index (BMI) 43.2 Intake & Output: Intake and Output for Last 24 Hours 06/22/21 06/23/21 06/24/21 23:59 23:59 23:59 Intake Total 2051.24 / 2331.24 1380.02 / 1380.02 Output Total 550 / 630 2250 / 2250 400 / 400 Balance 1501.24 / 1701.24 -869.98 / -869.98 -400 / -400 Lab / Micro Data Result Diagrams: 06/24/21 05:15 06/24/21 05:15 Labs: Laboratory Results - last 24 hr 06/23/21 11:41: POC Glucose 73 L 06/23/21 16:48: POC Glucose 96 06/23/21 21:18: POC Glucose 84 06/24/21 05:15: Sodium 135 L, Potassium 3.6, Chloride 99, Carbon Dioxide 30.0, Anion Gap 6, BUN 15, Creatinine 0.92, Estim Creat Clear Calc 49.13, Est GFR (MDRD) Af Amer 78, Est GFR (MDRD) Non-Af 64, BUN/Creatinine Ratio 16.3, Glucose 81, Calcium 8.8, Triglycerides 139, Cholesterol 137, LDL Cholesterol 81, VLDL Cholesterol 28, HDL Cholesterol 28 L 06/24/21 05:15: WBC 8.7, RBC 3.89 L, Hgb 11.5 L, Hct 34.8 L, MCV 89.5, MCH 29.6, MCHC 33.0, RDW Std Deviation 43.4, RDW Coeff of Mitzy 13.2, Plt Count 206, MPV 10.4, Immature Gran % (Auto) 1.100 H, Neut % (Auto) 78.2 H, Lymph % (Auto) 10.0 L, [place] % (Auto) 9.3, Eos % (Auto) 0.9, Baso % (Auto) 0.5, Absolute Neuts (auto) 6.8, Absolute Lymphs (auto) 0.87, Nucleated RBC % 0 06/24/21 06:29: POC Glucose 102 Micro: Microbiology 06/22/21 11:25 Urine, Clean Catch Urine Culture - Final Gram negative rubio Cardiology Labs/Tests 06/24/21 05:15: Sodium 135 L, Potassium 3.6, Chloride 99, Carbon Dioxide 30.0, Anion Gap 6, BUN 15, Creatinine 0.92, Est GFR (MDRD) Af Amer 78, Est GFR (MDRD) Non-Af 64, BUN/Creatinine Ratio 16.3, Glucose 81, Calcium 8.8, Triglycerides 139, Cholesterol 137, LDL Cholesterol 81, VLDL Cholesterol 28, HDL Cholesterol 28 L 06/24/21 05:15: WBC 8.7, RBC 3.89 L, Hgb 11.5 L, Hct 34.8 L, MCV 89.5, MCH 29.6, MCHC 33.0, Plt Count 206, MPV 10.4, Immature Gran % (Auto) 1.100 H, Neut % (Auto) 78.2 H, Lymph % (Auto) 10.0 L, [place] % (Auto) 9.3, Eos % (Auto) 0.9, Baso % (Auto) 0.5, Absolute Neuts (auto) 6.8, Nucleated RBC % 0 Rhythm: Sinus rhythm ECHO: 06-21-2021: As noted below Interpretation Summary The estimated ejection fraction is 60 %. No evidence for diastolic dysfunction. Aortic sclerosis, no stenosis. Echocardiogram: 08-17-2020 Interpretation Summary The study was technically difficult. Contrast injection was performed. Based upon the 2D echocardiographic and contrast enhanced images obtained there appears to be grossly normal left ventricular size, wall motion, and systolic function. The estimated ejection fraction is 55 %. Trivial mitral valve insufficiency. Trivial tricuspid valve insufficiency. Mild focal aortic valve calcification. Trivial pulmonic valve insufficiency. Mildly dilated aortic root. Right ventricular systolic pressure estimated to be 45 mmHg. There is evidence of diastolic dysfunction. Transesophageal echocardiogram: 04-08-2017 Interpretation Summary Left ventricular systolic function is normal. The estimated ejection fraction is 60 %. The left atrium is mildly enlarged. There is no sponatenous contrast in the left atrium. No thrombus is detected in the left atrial appendage. Probable chiari network. (Prominent) Mild (1+) mitral valve insufficiency. Mild tricuspid valve insufficiency. Positive color flow doppler for bidirectional interatrial shunt (predominantly left to right) appearing c/w a prominent PFO. Positive agitated saline contrast study for a right to left interatrial shunt c/w PFO. Mild atherosclerosis of the descending aorta. Echocardiogram: 02-07-2017 The study was technically difficult Contrast injection was performed Left ventricular systolic function is normal The estimated ejection fraction is 65% Mildly dilated right ventricle Trivial mitral valve insufficiency Mild tricuspid valve insufficiency Positive agitated saline contrast study for interatrial shunt (bidirectional) Unable to estimate RV systolic pressure/pulmonary artery pressure due to technically difficult study 2D echocardiographic images demonstrate findings potentially compatible with a hypermobile interatrial septum and a vague mobile echodensity in the right atrium of uncertain etiology with a differential diagnosis including thrombus, however, other etiologies of mobile echodensities cannot be excluded Consider further evaluation with a MARIELLA if clinically indicated Stress Test: Stress Test Report: Date: 11/05/2016 Procedure: Pharmacologic stress nuclear imaging study Indications: Chest pain Consent: Per the patient Procedure: The patient underwent pharmacologic (regadenoson) evaluation with a peak heart rate of 69 bpm (44% predicted maximal heart rate) with a peak blood pressure of 140/78 mmHg. The baseline ECG demonstrated normal sinus rhythm. The peak pharmacologic ECG demonstrated no obvious ECG changes. There were no cardiac dysrhythmias pretest, during pharmacologic infusion, or recovery. There was no report of chest discomfort during pharmacologic infusion or recovery. The examination was discontinued secondary to completion of protocol. Impression: 1. Pharmacologic (regadenoson) evaluation 2. Peak pharmacologic ECG with no obvious ECG changes 3. Nuclear images pending Myocardial perfusion imaging study: Technique: The patient was injected with 14.6 mCi of [employer] 99m Cardiolite and subsequently rest SPECT Cardiolite nuclear imaging was obtained in the horizontal long, vertical long, and short axis views. The patient underwent pharmacologic (regadenoson) evaluation with a peak heart rate of 69 bpm (44% predicted maximal heart rate) with a peak blood pressure of 140/78 mmHg. The patient was injected with 44.1 mCi of [employer] 99m Cardiolite and subsequently stress SPECT Cardiolite nuclear imaging was obtained in the horizontal long, vertical long, and short axis views. The gated Cardiolite study at peak stress was obtained. Interpretation: Rest and stress SPECT Cardiolite nuclear imaging status post realignment, normalization, and attenuation correction demonstrates the appearance of relative uniform tracer uptake and myocardial perfusion appearing within normal limits. There is end systolic thickening and brightening. The gated Cardiolite study demonstrates myocardial thickening and inward wall motion. The reported LVEF is 66%. Impression: 1. Rest and stress SPECT Cardiolite nuclear imaging mistreating relative uniform tracer uptake and myocardial perfusion appearing within normal limits. 2. The gated Cardiolite study reports an LVEF of 66%. Cardiac Cath: 11-13-2017: [facility] Right heart catheterization: RA mean pressure: 15 mmHg RV pressure: 51/18 mmHg PA pressure: 44/25 mmHg PA mean pressure: 27 mmHg Pulmonary capillary wedge pressure mean: 20 mmHg Left atrial pressure: 18 mmHg LVEDP: 28 mmHg Dani cardiac output/cardiac index: 7.4/3.5 PVR: 1.0 RAMOS SVR: 8.9 RAMOS QP/QS: 1 O2 saturations: On room air SVC: 72% IVC: 78% PA: 72% LA: 97% Ao: 96% Coronary angiogram: Right dominant circulation Heavily calcified vessels Mild to moderate diffuse calcific CAD as follows: 30% distal left main 20% proximal RCA 40% proximal mid LAD 20% proximal LCx Impression: Biventricular diastolic dysfunction Mild pulmonary hypertension (WHO Group 2)-secondary to left heart diastolic dysfunction Nonobstructive calcific CAD Plan: Would not recommend closure of ASD given lack of significant shunt and high diastolic filling pressures No PAH medications indicated Start Imdur 30 mg daily Stop chlorthalidone; start Lasix 40 mg daily Aggressive risk factor management for CAD with statin, aspirin, lifestyle modification Physical Exam Const alert and oriented x3 Orientation / Consciousness: awake HEENT normocephalic, head/scalp atraumatic and hearing grossly normal bilaterally Eyes PERRL, EOMs intact bilaterally and conjunctivae normal Neck full ROM, supple and no JVD Resp normal respiratory effort Auscultation: wheezes expiratory wheezes and throughout Cardio regular rate, regular rhythm, S1 normal heart sound and S2 normal heart sound Heart Sounds: murmur systolic II/ soft mid left sternal border GI normal to inspection, nondistended, normoactive bowel sounds Extremity no pedal edema Skin no rashes or lesions noted Psych mental status grossly normal Assessment & Plan Assessment/Plan (1) Non-STEMI (non-ST elevated myocardial infarction): PLAN: The patient has had abnormal troponin I levels which have increased and then decreased. She has been reported as having no acute electrocardiographic changes. She does not describe at this time ongoing symptoms of classic angina pectoris. There has been concern that her abnormal troponin I levels may be a type II non-ST segment elevation MS secondary to her underlying noncardiac issues with respect to her underlying pulmonary disease issues and/or bacteremia/sepsis issues. At the moment she is being monitored. She has undergone noninvasive valuation with transthoracic echocardiogram with the results as noted. Her previous [facility] cardiovascular studies have been reviewed and are noted. An attempt has been made to optimize her medical therapy with the addition of aspirin and beta-blockers. Her lipid labs were reviewed and her total cholesterol and LDL cholesterol appear to be under reasonably good control at this time. Depending upon her clinical course she may need additional noninvasive evaluation such as a pharmacologic stress nuclear imaging study once her noncardiovascular issues have resolved and/or potential future reevaluation in the cardiac catheterization laboratory, however, consideration would have to be given as to where such a procedure would be performed based upon her previous studies demonstrating what appears to be significant coronary artery calcification that if catheter-based revascularization were required it may require procedures such as atherectomy or Rotablator which would have to be performed at a tertiary care center. (2) Atherosclerosis of [place] coronary artery of [place] heart without angina pectoris: PLAN: Her CAD history was reviewed. Again she is being monitored. She has undergone noninvasive valuation. She will continue medical management at this time. Consideration will be given in the future for further noninvasive and invasive studies when she has recuperated from her current noncardiovascular issues. (3) (HFpEF) heart failure with preserved ejection fraction: QUALIFIERS: Heart failure chronicity: acute Qualified Code(s): I50.31 - Acute diastolic (congestive) heart failure PLAN: She has had a history of heart failure with preserved ejection fraction. She should continue medical therapy with adjustment of diuretics and other medications as deemed appropriate as her course progresses. (4) Atrial septal defect: PLAN: She has undergone extensive evaluation at [facility] for concerns of her interatrial shunt. The recommendation was for no closure of her interatrial shunt but continued medical management for concerns of decreased diastolic compliance as well as cardiovascular risk factor modification and care. (5) Hyperlipidemia: QUALIFIERS: Hyperlipidemia type: unspecified Qualified Code(s): E78.5 - Hyperlipidemia, unspecified PLAN: Again, her lipid labs were reviewed. Her total cholesterol and LDL cholesterol appear to be under reasonably good control. As noted before she states she has been intolerant to statin therapy. (6) Hypertension: PLAN: Her blood pressure does need to be monitored with continued adjustment of her medications to assist with her blood pressure control. (7) SOB (shortness of breath): PLAN: Her main concern was shortness of breath. There are concerns that this is not all cardiovascular related. She will continue evaluation care per internal medicine for noncardiovascular issues. (8) Bacteremia: PLAN: She has been reported as having positive fevers and positive bacteremia. She is continuing medical therapy with antibiotic therapy. (9) Hypokalemia: PLAN: She has been noted to have hypokalemia. She will continue electrolyte supplementation as deemed appropriate. Addt'l Comments This note was generated using a voice recognition system and there may be incorrect words, spelling or punctuation that were not noted when reviewing the office note prior to saving.
[2021-06-24 11:41] LABS: Bedside Glucose 98 mg/dL (74-106)
[2021-06-24] MEDS: Ibuprofen 400 MG Tablet PO (17:19)
[2021-06-24 17:21] LABS: Bedside Glucose 124 mg/dL (74-106)
--- NOTE | 2021-06-24 18:42 | NURSING ---
Reviewed charting with Taina Cervantes RN
[2021-06-24] MEDS: Citalopram 40 MG TABLET PO (20:56)
[2021-06-24] MEDS: Losartan Potassium 100 MG Tablet PO (20:57)
[2021-06-24 21:06] LABS: Bedside Glucose 152 mg/dL (74-106)
[2021-06-25] VITALS (14 sets, daily range): BP systolic 135–160; BP diastolic 70–75; PULSE 64–76; RESP 16–20; TEMP 36.3–36.7; O2SAT 94–98
[2021-06-25] MEDS: Ibuprofen 400 MG Tablet PO ×3 (03:09→17:05)
[2021-06-25 05:10] LABS: Anion Gap 4 (5-15); BUN 18 mg/dL (7-18); BUN/Creat Ratio 19.7 RATIO (10-20); Calcium,Total 8.4 mg/dL (8.5-10.1); Chloride 100 mmol/L (98-107); Creatinine, Serum 0.91 mg/dL (0.55-1.02); EST Glomerular Filtration Rate 65 mL/min (>60); Est Glom Filt Rate - Afr Amer 78 mL/min (>60); Estimated Creatinine Clearance 49.67 ml/min; Glucose 113 mg/dL (74-106); Potassium 4.2 mmol/L (3.5-5.1); Sodium Level 133 mmol/L (136-145)
[2021-06-25] MEDS: levoFLOXacin 750 MG Tablet PO (06:30)
[2021-06-25 06:41] LABS: Bedside Glucose 119 mg/dL (74-106)
--- NOTE | 2021-06-25 07:46 | PCM.PN.HOSP ---
Subjective Subjective Follow-up for non-STEMI and acute HFpEF Patient gets easily short of breath even on walking to bathroom or getting from bed to chair. No chest pain or tightness. Objective Data Objective Data Vital Signs: Vital Signs Temp Pulse Resp BP Pulse Ox 98.1 F 70 20 H 160/74 H 96 06/25/21 03:00 06/25/21 07:27 06/25/21 03:00 06/25/21 03:00 06/25/21 03:00 Oxygen Flow Rate (L/min) [ 2 AMBULATING with Oxygen #1] Oxygen Flow Rate (L/min) [At 2 REST with Oxygen] Oxygen Flow Rate (L/min) 2 Oxygen Delivery Method Nasal Cannula Weight: 241 lb 10.026 oz Body Mass Index (BMI) 43.2 Intake & Output: Intake and Output for Last 24 Hours 06/23/21 06/24/21 06/25/21 23:59 23:59 23:59 Intake Total 1380.02 / 1380.02 650 / 650 Output Total 2250 / 2250 900 / 900 75 / 75 Balance -869.98 / -869.98 -250 / -250 -75 / -75 Lab / Micro Data Result Diagrams: 06/24/21 05:15 06/25/21 04:10 Labs: Laboratory Results - last 24 hr 06/24/21 11:34: POC Glucose 98 06/24/21 17:12: POC Glucose 124 H 06/24/21 20:52: POC Glucose 152 H 06/25/21 04:10: Sodium 133 L, Potassium 4.2, Chloride 100, Carbon Dioxide 29.0, Anion Gap 4 L, BUN 18, Creatinine 0.91, Estim Creat Clear Calc 49.67, Est GFR (MDRD) Af Amer 78, Est GFR (MDRD) Non-Af 65, BUN/Creatinine Ratio 19.7, Glucose 113 H, Calcium 8.4 L 06/25/21 06:27: POC Glucose 119 H Micro: Microbiology 06/22/21 11:25 Urine, Clean Catch Urine Culture - Final Gram negative rubio 06/21/21 03:30 Blood Culture (Wb) #2 - Right Hand Blood Culture - Final Presumptive E. coli 06/21/21 03:34 Blood Culture (Wb) - Left Forearm Blood Culture - Preliminary Escherichia coli 06/21/21 03:25 Nasal Secretion SARS-CoV-2 & FLU Antigen (Rapid) - Final Physical Exam Narrative General: Alert, Oriented x3, Cooperative HEENT: Atraumatic, PERRLA, EOMI, Normocephalic Oral: No Gingival or Mucosal Lesions/ Ulcerations Neck: Supple, No JVD, Negative Carotid Bruits Lungs: Air entry diminished in bilateral lung bases. No crepitation/rhonchi Cardiovascular: Regular rate, Regular Rhythm, Normal S1, Normal S2, systolic murmur grade 2/6 over LLSB Abdomen: Bowel Sounds Present, Soft, Non Tender, Non-Distended : No renal angle tenderness. No suprapubic tenderness. Extremities: No ankle edema, Capillary Refill Less than 3 Seconds Skin: No rashes, No breakdown Musculoskeletal: No Tenderness to Palpation of Joints or Extremities Neurological: Cranial nerves II-XII grossly intact, DTR 2+/4, muscle strength 4/5 at major joints Psych/Mental Status: Normal Affect, Appropriate Assessment & Plan Assessment/Plan (1) Non-STEMI (non-ST elevated myocardial infarction): (2) Hypokalemia: (3) Bacteremia: (4) (HFpEF) heart failure with preserved ejection fraction: QUALIFIERS: Heart failure chronicity: acute Qualified Code(s): I50.31 - Acute diastolic (congestive) heart failure (5) Hypertensive urgency: (6) Acute respiratory failure with hypoxia: PLAN: 1. non ST elevation myocardial infarction Suspect type II event. Registered Pharmacist was consulted. Continue ASA, metoprolol, isosorbide mononitrate. Echo showed EF of 60%. No additional plan for inpatient cardiology work-up or procedure but will need as an outpatient. 2. Hypokalemia Initially complicated by hypomagnesemia. On potassium chloride 40 M EQ twice daily. Last magnesium was 2.3. Potassium supplement replaced with spironolactone. 3. Acute heart failure with preserved ejection fraction Complicated by flash pulmonary edema Continue with furosemide Repeat chest x-ray showed pulmonary vascular congestion which was likely due to hypertensive urgency The patient had pharmacological nuclear stress test in October 2016 which was negative. Last echo 06/21/2021 shows EF 60% with preserved EF. Mild aortic sclerosis but no stenosis. Patient had [facility]IELLA on April 08, 2017 reported no thrombus in left atrial appendage, mild MR bidirectional interatrial shunt predominantly left to right, consistent with PFO. After that patient had right heart cath in [facility] on 11/13/2017, reported RA mean pressure 15 mmHg, RV 51/18, PA mean pressure 27, PCWP mean 20 mmHg, left atrial pressure 18 mmHg overall suggestive of mild pulmonary hypertension secondary to left diastolic dysfunction. Patient had coronary angiogram showed right dominant circulation, heavily calcified vessels, mild to moderate diffuse calcific coronary artery disease. 4. Bacteremia Secondary to pansensitive E. coli. Unclear source of the E. coli. Discontinue pip/tazo and changed to levofloxacin and treat to the ninth 5. Acute hypoxic respiratory failure Secondary to #3 Improving Wean oxygen as able 6. Hypertensive urgency resolved 7. Diabetes type II Continued mixed insulin regiment and sliding scale insulin. 8. VTE prophylaxis: Enoxaparin 9. COVID-19 vaccination status: Patient has been vaccinated and boosted with [employer]. No recent COVID-19 contacts. 10. CODE STATUS: Addressed with patient. Patient is full CODE STATUS. 11. Debility: Patient states that she is too weak to go home. Was unable to walk 20 feet with therapy on the first. Requires 2 person assist. Total time of the visit including total time spent in counseling or coordination of care, (more than 50% of the total time, spent in obtaining medical information from nurses and other ancillary care providers,explaining to the patient about labs, imaging, diagnosis and management), review of previous echo, stress, right heart cath and coronary angiogram, review of labs and imaging is 40 minutes. Discussed with the correctional case manager
--- NOTE | 2021-06-25 08:30 | PN.CARD_ITS ---
Subjective Subjective The patient states she slept better last night. She has no new acute cardiac complaints this AM. Objective Data Vital Signs: Vital Signs Temp Pulse Resp BP Pulse Ox 98.1 F 70 20 H 160/74 H 96 06/25/21 03:00 06/25/21 07:27 06/25/21 03:00 06/25/21 03:00 06/25/21 03:00 Oxygen Flow Rate (L/min) [ 2 AMBULATING with Oxygen #1] Oxygen Flow Rate (L/min) [At 2 REST with Oxygen] Oxygen Flow Rate (L/min) 2 Oxygen Delivery Method Nasal Cannula Weight: 241 lb 10.026 oz Body Mass Index (BMI) 43.2 Intake & Output: Intake and Output for Last 24 Hours 06/23/21 06/24/21 06/25/21 23:59 23:59 23:59 Intake Total 1380.02 / 1380.02 650 / 650 Output Total 2250 / 2250 900 / 900 75 / 75 Balance -869.98 / -869.98 -250 / -250 -75 / -75 Lab / Micro Data Result Diagrams: 06/24/21 05:15 06/25/21 04:10 Labs: Laboratory Results - last 24 hr 06/24/21 11:34: POC Glucose 98 06/24/21 17:12: POC Glucose 124 H 06/24/21 20:52: POC Glucose 152 H 06/25/21 04:10: Sodium 133 L, Potassium 4.2, Chloride 100, Carbon Dioxide 29.0, Anion Gap 4 L, BUN 18, Creatinine 0.91, Estim Creat Clear Calc 49.67, Est GFR (MDRD) Af Amer 78, Est GFR (MDRD) Non-Af 65, BUN/Creatinine Ratio 19.7, Glucose 113 H, Calcium 8.4 L 06/25/21 06:27: POC Glucose 119 H Micro: Microbiology 06/22/21 11:25 Urine, Clean Catch Urine Culture - Final Gram negative rubio Cardiology Labs/Tests 06/25/21 04:10: Sodium 133 L, Potassium 4.2, Chloride 100, Carbon Dioxide 29.0, Anion Gap 4 L, BUN 18, Creatinine 0.91, Est GFR (MDRD) Af Amer 78, Est GFR (MDRD) Non-Af 65, BUN/Creatinine Ratio 19.7, Glucose 113 H, Calcium 8.4 L Rhythm: Sinus rhythm Physical Exam Const alert and oriented x3 Orientation / Consciousness: awake HEENT normocephalic, head/scalp atraumatic and hearing grossly normal bilaterally Eyes PERRL, EOMs intact bilaterally and conjunctivae normal Neck full ROM, supple and no JVD Resp normal respiratory effort Auscultation: wheezes expiratory wheezes and throughout (Somewhat less prominent than previous examination) Cardio regular rate, regular rhythm, S1 normal heart sound and S2 normal heart sound Heart Sounds: murmur systolic II/ soft mid left sternal border GI normal to inspection, nondistended, normoactive bowel sounds Extremity no pedal edema Skin no rashes or lesions noted Psych mental status grossly normal Assessment & Plan Assessment/Plan (1) Non-STEMI (non-ST elevated myocardial infarction): PLAN: The patient has had abnormal troponin I levels which have increased and then decreased. She has been reported as having no acute electrocardiographic changes. She does not describe at this time ongoing symptoms of classic angina pectoris. There has been concern that her abnormal troponin I levels may be a type II non- ST segment elevation WI secondary to her underlying noncardiac issues with respect to her underlying pulmonary disease issues and/or bacteremia/sepsis issues. At the moment she is being monitored. She has undergone noninvasive valuation with transthoracic echocardiogram with the results as noted. Her previous [facility] cardiovascular studies have been reviewed and are noted. She appears to be tolerating aspirin therapy and beta-rory therapy in addition to her other medications at this time. Her lipid labs were reviewed and her total cholesterol and LDL cholesterol appear to be under reasonably good control at this time. Depending upon her clinical course she may need additional noninvasive evaluation such as a pharmacologic stress nuclear imaging study once her noncardiovascular issues have resolved and/or potential future reevaluation in the cardiac catheterization laboratory, however, consideration would have to be given as to where such a procedure would be performed based upon her previous studies demonstrating what appears to be significant coronary artery calcific ation that if catheter-based revascularization were required it may require procedures such as atherectomy or Rotablator which would have to be performed at a tertiary care center. (2) Atherosclerosis of jamul coronary artery of jamul heart without angina pectoris: PLAN: Her CAD history was reviewed. Again she is being monitored. She has undergone noninvasive valuation. She will continue medical management at this time. Consideration will be given in the future for further noninvasive and invasive studies when she has recuperated from her current noncardiovascular issues. The timing of these studies do need to take into consideration her ongoing noncardiac issues/concerns. (3) (HFpEF) heart failure with preserved ejection fraction: QUALIFIERS: Heart failure chronicity: acute Qualified Code(s): I50.31 - Acute diastolic (congestive) heart failure PLAN: She has had a history of heart failure with preserved ejection fraction. She should continue medical therapy with adjustment of diuretics and other medic ations as deemed appropriate as her course progresses. (4) Atrial septal defect: PLAN: She has undergone extensive evaluation at [facility] for concerns of her interatrial shunt. The recommendation was for no closure of her interatrial shunt but continued medical management for concerns of decreased diastolic compliance as well as cardiovascular risk factor modification and care. (5) Hyperlipidemia: QUALIFIERS: Hyperlipidemia type: unspecified Qualified Code(s): E78.5 - Hyperlipidemia, unspecified PLAN: Again, her lipid labs were reviewed. Her total cholesterol and LDL cholesterol appear to be under reasonably good control. As noted before she states she has been intolerant to statin therapy. (6) Hypertension: PLAN: Her blood pressure does need to be monitored with continued adjustment of her medications to assist with her blood pressure control. (7) SOB (shortness of breath): PLAN: Her main concern was shortness of breath. There are concerns that this is not all cardiovascular related. She will continue evaluation care per internal medicine for noncardiovascular issues. (8) Bacteremia: PLAN: She has been reported as having positive fevers and positive bacteremia. Her temperature appears to be decreasing. Her most recent WBC appears to have decreased. She is continuing medical therapy with antibiotic therapy. (9) Hypokalemia: PLAN: She has been noted to have hypokalemia. She will continue electrolyte supplementation as deemed appropriate. Addt'l Comments This note was generated using a voice recognition system and there may be incorrect words, spelling or punctuation that were not noted when reviewing the office note prior to saving. Procedure Criteria Type of Procedure Procedure Type: Elective Elective Risks - COVID COVID Risk Discussion: The surgeon/proceduralist and patient have discussed in detail the risk of exposure to and/or potential harm posed by the COVID-19 virus with having a surgery/procedure at this time versus the risk of delaying the surgery/procedure. It is not possible to know either the risk of delaying the s urgery or procedure or chance of getting an infection with perfect accuracy, but a joint decision was made between the patient and the surgeon/proceduralist to proceed at this time with the scheduled surgery/procedure as indicated on the consent form.
[2021-06-25] MEDS: DULoxetine Hcl 30 MG Capsule PO ×2 (10:41→21:47)
[2021-06-25] MEDS: Metoprolol Tartrate 25 MG Tablet PO ×2 (10:41→21:50)
[2021-06-25] MEDS: Potassium Chloride Oral Tablet 20 MEQ 40 MEQ PO (10:41)
[2021-06-25] MEDS: Aspirin E.C. 81 MG Tablet PO (10:41)
[2021-06-25] MEDS: Isosorbide Mononitrate 30 MG Tablet PO (10:41)
[2021-06-25] MEDS: Pramipexole Di-HCl 1 MG Tablet 1.5 MG PO ×2 (10:41→21:47)
[2021-06-25] MEDS: Pantoprazole Sodium 40 MG Tablet PO (10:41)
[2021-06-25] MEDS: Furosemide 40 MG Tablet PO ×2 (10:41→17:02)
[2021-06-25] MEDS: Insulin Human 75/25 Kwickpen 70 UNIT SC (10:42)
[2021-06-25] MEDS: Enoxaparin 40 MG/0.4 ML Syringe SC (10:42)
[2021-06-25] MEDS: Insulin Lispro 100 UNIT/ML INSULN.PEN SC (11:06)
[2021-06-25 11:26] LABS: Bedside Glucose 156 mg/dL (74-106)
[2021-06-25] MEDS: Acetaminophen 500 MG Tablet 1000 MG PO (12:51)
[2021-06-25 17:11] LABS: Bedside Glucose 108 mg/dL (74-106)
[2021-06-25] MEDS: Insulin Human 75/25 Kwickpen 90 UNIT SC (21:34)
[2021-06-25] MEDS: Menthol/Lanolin/Calamine/Znox 113 GM Tube 1 APPLIC TOPICAL (21:45)
[2021-06-25] MEDS: Citalopram 40 MG TABLET PO (21:47)
[2021-06-25] MEDS: Losartan Potassium 100 MG Tablet PO (21:47)
[2021-06-25 21:56] LABS: Bedside Glucose 135 mg/dL (74-106)
[2021-06-26] VITALS (15 sets, daily range): BP systolic 127–133; BP diastolic 58–92; PULSE 64–78; RESP 16–18; TEMP 36.3–36.9; O2SAT 95–100
[2021-06-26] MEDS: levoFLOXacin 750 MG Tablet PO (06:27)
[2021-06-26 06:46] LABS: Bedside Glucose 122 mg/dL (74-106)
[2021-06-26 06:52] LABS: Anion Gap 4 (5-15); BUN 20 mg/dL (7-18); BUN/Creat Ratio 18.2 RATIO (10-20); Calcium,Total 8.6 mg/dL (8.5-10.1); Chloride 102 mmol/L (98-107); EST Glomerular Filtration Rate 52 mL/min (>60); Est Glom Filt Rate - Afr Amer 63 mL/min (>60); Estimated Creatinine Clearance 41.09 ml/min; Glucose 91 mg/dL (74-106); Magnesium 1.5 mg/dL (1.6-2.6); Potassium 4.1 mmol/L (3.5-5.1); Sodium Level 136 mmol/L (136-145)
--- NOTE | 2021-06-26 07:35 | PCM.PN.HOSP ---
Subjective Subjective Follow-up for non-STEMI and acute HFpEF Patient complains of weakness mainly legs not able to walk. Needs assistance for transfer from bed to chair. On 2 L of oxygen. Objective Data Objective Data Vital Signs: Vital Signs Temp Pulse Resp BP Pulse Ox 98.5 F 73 18 127/92 H 100 06/26/21 03:30 06/26/21 03:30 06/26/21 03:30 06/26/21 03:30 06/26/21 03:30 Oxygen Flow Rate (L/min) [ 2 AMBULATING with Oxygen #1] Oxygen Flow Rate (L/min) [At 2 REST with Oxygen] Oxygen Flow Rate (L/min) 2 Oxygen Delivery Method Nasal Cannula Weight: 243 lb 13.3 oz Body Mass Index (BMI) 43.2 Intake & Output: Intake and Output for Last 24 Hours 06/24/21 06/25/21 06/26/21 23:59 23:59 23:59 Intake Total 650 / 650 Output Total 900 / 900 275 / 475 500 / 500 Balance -250 / -250 -275 / -475 -500 / -500 Lab / Micro Data Result Diagrams: 06/24/21 05:15 06/26/21 05:48 Labs: Laboratory Results - last 24 hr 06/25/21 11:05: POC Glucose 156 H 06/25/21 16:55: POC Glucose 108 H 06/25/21 21:29: POC Glucose 135 H 06/26/21 05:48: Sodium 136, Potassium 4.1, Chloride 102, Carbon Dioxide 30.0, Anion Gap 4 L, BUN 20 H, Creatinine 1.10 H, Estim Creat Clear Calc 41.09, Est GFR (MDRD) Af Amer 63, Est GFR (MDRD) Non-Af 52 L, BUN/Creatinine Ratio 18.2, Glucose 91, Calcium 8.6, Magnesium 1.5 L 06/26/21 06:31: POC Glucose 122 H Micro: Microbiology 06/21/21 03:34 Blood Culture (Wb) - Left Forearm Blood Culture - Final Escherichia coli 06/22/21 11:25 Urine, Clean Catch Urine Culture - Final Gram negative rubio 06/21/21 03:30 Blood Culture (Wb) #2 - Right Hand Blood Culture - Final Presumptive E. coli 06/21/21 03:25 Nasal Secretion SARS-CoV-2 & FLU Antigen (Rapid) - Final Physical Exam Narrative General: Alert, Oriented x3, Cooperative HEENT: Atraumatic, PERRLA, EOMI, Normocephalic Oral: No Gingival or Mucosal Lesions/ Ulcerations Neck: Supple, No JVD, Negative Carotid Bruits Lungs: Air entry diminished in bilateral lung bases. No crepitation/rhonchi Cardiovascular: Regular sinus rhythm, Normal S1, Normal S2, systolic murmur grade 2/6 over LLSB Abdomen: Bowel Sounds Present, Soft, Non Tender, Non-Distended : No renal angle tenderness. No suprapubic tenderness. Extremities: No ankle edema, Capillary Refill Less than 3 Seconds Skin: No rashes, No breakdown Musculoskeletal: No Tenderness to Palpation of Joints or Extremities Neurological: Cranial nerves II-XII grossly intact, DTR 2+/4, muscle strength 4/5 at major joints Psych/Mental Status: Normal Affect, Appropriate Assessment & Plan Assessment/Plan (1) Non-STEMI (non-ST elevated myocardial infarction): (2) Hypokalemia: (3) Bacteremia: (4) (HFpEF) heart failure with preserved ejection fraction: QUALIFIERS: Heart failure chronicity: acute Qualified Code(s): I50.31 - Acute diastolic (congestive) heart failure (5) Hypertensive urgency: (6) Acute respiratory failure with hypoxia: PLAN: 1. non ST elevation myocardial infarction Suspect type II event. Assistant To The Director was consulted. Continue ASA, metoprolol, isosorbide mononitrate. Echo showed EF of 60%. No additional plan for inpatient cardiology work-up or procedure but will need as an outpatient. 4/5: Heart rate and blood pressure and respiratory rate in normal limit. Sinus rhythm. No chest pain. Dyspnea on exertion. 2. Hypokalemia Initially complicated by hypomagnesemia. On potassium chloride 40 M EQ twice daily. Last magnesium was 2.3. Potassium supplement replaced with spironolactone. 4/5: Potassium 4.1. Hypomagnesemia, IV magnesium ordered. Maintenance magnesium chloride from tomorrow a.m. 3. Acute heart failure with preserved ejection fraction Complicated by flash pulmonary edema Continue with furosemide Repeat chest x-ray showed pulmonary vascular congestion which was likely due to hypertensive urgency The patient had pharmacological nuclear stress test in October 2016 which was negative. Last echo 06/21/2021 shows EF 60% with preserved EF. Mild aortic sclerosis but no stenosis. Patient had MARIELLA on April 08, 2017 reported no thrombus in left atrial appendage, mild MR bidirectional interatrial shunt predominantly left to right, consistent with PFO. After that patient had right heart cath in [facility] on 11/13/2017, reported RA mean pressure 15 mmHg, RV 51/18, PA mean pressure 27, PCWP mean 20 mmHg, left atrial pressure 18 mmHg overall suggestive of mild pulmonary hypertension secondary to left diastolic dysfunction. Patient had coronary angiogram showed right dominant circulation, heavily calcified vessels, mild to moderate diffuse calcific coronary artery disease. 4. Bacteremia Secondary to pansensitive E. coli. Unclear source of the E. coli. Discontinue pip/tazo and changed to levofloxacin and treat to the ninth 5. Acute hypoxic respiratory failure Secondary to #3 Improving Wean oxygen as able 6. Hypertensive urgency resolved 7. Diabetes type II Continued mixed insulin regiment and sliding scale insulin. 8. VTE prophylaxis: Enoxaparin 9. COVID-19 vaccination status: Patient has been vaccinated and boosted with [employer]. No recent COVID-19 contacts. 10. CODE STATUS: Addressed with patient. Patient is full CODE STATUS. 11. Debility: Patient states that she is too weak to go home. Was unable to walk 20 feet with therapy on the first. Requires 2 person assist. Total time of the visit including total time spent in counseling or coordination of care, (more than 50% of the total time, spent in obtaining medical information from nurses and other ancillary care providers,explaining to the patient about labs, imaging, diagnosis and management), review of previous echo, stress, right heart cath and coronary angiogram, review of labs and imaging is 40 minutes. Discussed with the rn case mgr Charges/Coding Visit Charges Inpatient E&M: 28787 Subs Hosp L2
[2021-06-26] MEDS: Ibuprofen 400 MG Tablet PO ×3 (07:52→22:01)
[2021-06-26] MEDS: Aspirin E.C. 81 MG Tablet PO (08:44)
[2021-06-26] MEDS: Isosorbide Mononitrate 30 MG Tablet PO (08:44)
[2021-06-26] MEDS: Pramipexole Di-HCl 1 MG Tablet 1.5 MG PO ×2 (08:44→21:48)
[2021-06-26] MEDS: Spironolactone 25 MG Tablet PO (08:44)
[2021-06-26] MEDS: Enoxaparin 40 MG/0.4 ML Syringe SC (08:45)
[2021-06-26] MEDS: Furosemide 40 MG Tablet PO ×2 (08:45→16:30)
[2021-06-26] MEDS: DULoxetine Hcl 30 MG Capsule PO ×2 (08:45→21:46)
[2021-06-26] MEDS: Insulin Human 75/25 Kwickpen 70 UNIT SC (08:46)
[2021-06-26] MEDS: Pantoprazole Sodium 40 MG Tablet PO (08:46)
[2021-06-26] MEDS: Metoprolol Tartrate 25 MG Tablet PO ×2 (08:48→21:47)
[2021-06-26] MEDS: Menthol/Lanolin/Calamine/Znox 113 GM Tube 1 APPLIC TOPICAL ×2 (08:49→21:42)
--- NOTE | 2021-06-26 08:49 | PCM.PN.CARD ---
Subjective Subjective The patient appears to be more awake and alert. She has been sitting up in bed and in the bedside chair. She states she has been working with OT/PT. She feels weak and is using a walker to walk. She has not been able to walk any great distance. She has no new acute cardiac complaints. Objective Data Vital Signs: Vital Signs Temp Pulse Resp BP Pulse Ox 98.5 F 69 18 127/92 H 100 06/26/21 03:30 06/26/21 07:30 06/26/21 03:30 06/26/21 03:30 06/26/21 03:30 Oxygen Flow Rate (L/min) [ 2 AMBULATING with Oxygen #1] Oxygen Flow Rate (L/min) [At 2 REST with Oxygen] Oxygen Flow Rate (L/min) 2 Oxygen Delivery Method Nasal Cannula Weight: 243 lb 13.3 oz Body Mass Index (BMI) 43.2 Intake & Output: Intake and Output for Last 24 Hours 06/24/21 06/25/21 06/26/21 23:59 23:59 23:59 Intake Total 650 / 650 Output Total 900 / 900 275 / 475 500 / 500 Balance -250 / -250 -275 / -475 -500 / -500 Lab / Micro Data Result Diagrams: 06/24/21 05:15 06/26/21 05:48 Labs: Laboratory Results - last 24 hr 06/25/21 11:05: POC Glucose 156 H 06/25/21 16:55: POC Glucose 108 H 06/25/21 21:29: POC Glucose 135 H 06/26/21 05:48: Sodium 136, Potassium 4.1, Chloride 102, Carbon Dioxide 30.0, Anion Gap 4 L, BUN 20 H, Creatinine 1.10 H, Estim Creat Clear Calc 41.09, Est GFR (MDRD) Af Amer 63, Est GFR (MDRD) Non-Af 52 L, BUN/Creatinine Ratio 18.2, Glucose 91, Calcium 8.6, Magnesium 1.5 L 06/26/21 06:31: POC Glucose 122 H Micro: Microbiology 06/21/21 03:34 Blood Culture (Wb) - Left Forearm Blood Culture - Final Escherichia coli Cardiology Labs/Tests 06/26/21 05:48: Sodium 136, Potassium 4.1, Chloride 102, Carbon Dioxide 30.0, Anion Gap 4 L, BUN 20 H, Creatinine 1.10 H, Est GFR (MDRD) Af Amer 63, Est GFR (MDRD) Non-Af 52 L, BUN/Creatinine Ratio 18.2, Glucose 91, Calcium 8.6, Magnesium 1.5 L Rhythm: Sinus rhythm Physical Exam Const alert and oriented x3 Orientation / Consciousness: awake HEENT normocephalic, head/scalp atraumatic and hearing grossly normal bilaterally Eyes PERRL, EOMs intact bilaterally and conjunctivae normal Neck full ROM, supple and no JVD Resp normal respiratory effort and clear to auscultation bilaterally Cardio regular rate, regular rhythm, S1 normal heart sound and S2 normal heart sound Heart Sounds: murmur systolic II/ soft mid left sternal border GI normal to inspection, nondistended, normoactive bowel sounds Extremity no pedal edema Skin no rashes or lesions noted Psych mental status grossly normal Assessment & Plan Assessment/Plan (1) Non-STEMI (non-ST elevated myocardial infarction): PLAN: The patient has had abnormal troponin I levels which have increased and then decreased. She has been reported as having no acute electrocardiographic changes. She does not describe at this time ongoing symptoms of classic angina pectoris. There has been concern that her abnormal troponin I levels may be a type II non-ST segment elevation [place] secondary to her underlying noncardiac issues with respect to her underlying pulmonary disease issues and/or bacteremia/sepsis issues. At the moment she is being monitored. She has undergone noninvasive valuation with transthoracic echocardiogram with the results as noted. Her previous [facility] and [facility] cardiovascular studies have been reviewed and are noted. She appears to be tolerating aspirin therapy and beta-rory therapy in addition to her other medications at this time. Her lipid labs were reviewed and her total cholesterol and LDL cholesterol appear to be under reasonably good control at this time. As previously noted, depending upon her noncardiac clinical course, depending upon her overall general wellbeing, consideration can be given to a follow-up pharmacologic stress nuclear imaging study to further assess her cardiovascular status when she appears to be stable for such-either inpatient depending upon the length of her hospitalization or potentially as an outpatient. (2) Atherosclerosis of [place] coronary artery of [place] heart without angina pectoris: PLAN: Her CAD history was reviewed. Again she is being monitored. She has undergone noninvasive valuation. She will continue medical management at this time. Consideration will be given in the future for further noninvasive and invasive studies when she has recuperated from her current noncardiovascular issues. The timing of these studies do need to take into consideration her ongoing noncardiac issues/concerns. (3) (HFpEF) heart failure with preserved ejection fraction: QUALIFIERS: Heart failure chronicity: acute Qualified Code(s): I50.31 - Acute diastolic (congestive) heart failure PLAN: She has had a history of heart failure with preserved ejection fraction. She should continue medical therapy with adjustment of diuretics and other medications as deemed appropriate as her course progresses. (4) Atrial septal defect: PLAN: She has undergone extensive evaluation at [facility] for concerns of her interatrial shunt. The recommendation was for no closure of her interatrial shunt but continued medical management for concerns of decreased diastolic compliance as well as cardiovascular risk factor modification and care. (5) Hyperlipidemia: QUALIFIERS: Hyperlipidemia type: unspecified Qualified Code(s): E78.5 - Hyperlipidemia, unspecified PLAN: Again, her lipid labs were reviewed. Her total cholesterol and LDL cholesterol appear to be under reasonably good control. As noted before she states she has been intolerant to statin therapy. (6) Hypertension: PLAN: Her blood pressure does need to be monitored with continued adjustment of her medications to assist with her blood pressure control. (7) SOB (shortness of breath): PLAN: Her main concern was shortness of breath. There are concerns that this is not all cardiovascular related. She will continue evaluation care per internal medicine for noncardiovascular issues. (8) Bacteremia: PLAN: She has been reported as having positive fevers and positive bacteremia. Her temperature appears to be decreasing. Her most recent WBC appears to have decreased. She is continuing medical therapy with antibiotic therapy. (9) Hypokalemia: PLAN: She has been noted to have hypokalemia. She will continue electrolyte supplementation as deemed appropriate. Addt'l Comments Overall, from a cardiac standpoint, she appears to be without any acute cardiovascular complaints. She will continue medical management as tolerated. As noted above she will be recommended for continued noninvasive evaluation such as a pharmacologic stress nuclear imaging study when she is able to do so from her multiple comorbidities, etc., to screen for any obvious ongoing significant myocardial ischemia that would warrant reevaluation in the cardiac catheterization laboratory. The patient states that based upon her ongoing comorbidities and her debilitated state that she would be willing to go to a rehabilitation center for period of time. She was asked to discuss this with the [facility] hospitalist staff. This note was generated using a voice recognition system and there may be incorrect words, spelling or punctuation that were not noted when reviewing the office note prior to saving.
--- NOTE | 2021-06-26 09:24 | CASEMGMT ---
Per therapy notes, pt was min to mod assist x2 yesterday. This RN CM back to room to discuss d/c plan with pt and pt states that she feels she may need to go somewhere for rehab. Pt provided with list of SNF providers including quality and resource use data and consistent with the pt's preferred geographic region, medical needs, and insurance network. Marvin SOUZA aware, voices understanding. CM to follow. SStronak RN CM
--- NOTE | 2021-06-26 10:55 | CASEMGMT ---
Social Work SW met with pt to discuss discharge plan with pt. Pt agreeable to short term SNF placement. Pt [facility] provider [facility] [address] Phone call to TCU and no beds available. left with Ingrid at the [facility] and referral faxed. [facility] notified pt is ready for discharge. Will await return call from [facility] for determination of acceptance. Pt will need insurance preauth prior to d/c to SNF. Plan: [facility], pending acceptance and [facility]
[2021-06-26 11:16] LABS: Bedside Glucose 103 mg/dL (74-106)
--- NOTE | 2021-06-26 14:02 | CASEMGMT ---
Social Work Return call from Ingrid at [facility] and they are able to accept pt. Precert has been started but not expected to receive a determination today. Pt updated on discharge plan and agreeable. Plan: [facility], skilled level of care, pending [facility]
[2021-06-26] MEDS: 0.9% Saline Lock 10 ML Syringe IV ×2 (14:11→21:44)
[2021-06-26 16:06] LABS: Bedside Glucose 109 mg/dL (74-106)
[2021-06-26] MEDS: Citalopram 40 MG TABLET PO (21:44)
[2021-06-26] MEDS: Losartan Potassium 100 MG Tablet PO (21:45)
[2021-06-26] MEDS: Insulin Human 75/25 Kwickpen 90 UNIT SC (22:02)
[2021-06-26 22:40] LABS: Bedside Glucose 214 mg/dL (74-106)
[2021-06-27] VITALS (7 sets, daily range): BP systolic 122–132; BP diastolic 55–69; PULSE 66–79; RESP 16–18; TEMP 36.8–36.9; O2SAT 92–98
[2021-06-27] MEDS: levoFLOXacin 750 MG Tablet PO (05:20)
[2021-06-27 06:25] LABS: Bedside Glucose 97 mg/dL (74-106)
[2021-06-27 06:42] LABS: Anion Gap 3 (5-15); BUN 20 mg/dL (7-18); BUN/Creat Ratio 18.5 RATIO (10-20); Calcium,Total 9.1 mg/dL (8.5-10.1); Chloride 103 mmol/L (98-107); Creatinine, Serum 1.08 mg/dL (0.55-1.02); EST Glomerular Filtration Rate 53 mL/min (>60); Est Glom Filt Rate - Afr Amer 65 mL/min (>60); Estimated Creatinine Clearance 41.86 ml/min; Glucose 75 mg/dL (74-106); Magnesium 2.1 mg/dL (1.6-2.6); Potassium 4.1 mmol/L (3.5-5.1); Sodium Level 136 mmol/L (136-145)
--- NOTE | 2021-06-27 07:55 | PCM.PN.CARD ---
Subjective Subjective The patient is awake and alert. She has no new acute cardiac complaints. Objective Data Vital Signs: Vital Signs Temp Pulse Resp BP Pulse Ox 98.3 F 66 16 122/55 H 92 06/27/21 02:00 06/27/21 02:00 06/27/21 02:00 06/27/21 02:00 06/27/21 07:17 Oxygen Flow Rate (L/min) [ 2 AMBULATING with Oxygen #1] Oxygen Flow Rate (L/min) [At 2 REST with Oxygen] Oxygen Flow Rate (L/min) 2 Oxygen Delivery Method Room Air Weight: 241 lb 6.499 oz Body Mass Index (BMI) 43.2 Intake & Output: Intake and Output for Last 24 Hours 06/25/21 06/26/21 06/27/21 23:59 23:59 23:59 Intake Total 1004 / 1004 Output Total 275 / 475 925 / 1175 530 / 530 Balance -275 / -475 79 / -171 -530 / -530 Lab / Micro Data Result Diagrams: 06/24/21 05:15 06/27/21 04:35 Labs: Laboratory Results - last 24 hr 06/26/21 11:02: POC Glucose 103 06/26/21 16:02: POC Glucose 109 H 06/26/21 21:39: POC Glucose 214 H 06/27/21 04:35: Sodium 136, Potassium 4.1, Chloride 103, Carbon Dioxide 30.0, Anion Gap 3 L, BUN 20 H, Creatinine 1.08 H, Estim Creat Clear Calc 41.86, Est GFR (MDRD) Af Amer 65, Est GFR (MDRD) Non-Af 53 L, BUN/Creatinine Ratio 18.5, Glucose 75, Calcium 9.1, Magnesium 2.1 06/27/21 04:35: Phosphorus 4.0 06/27/21 06:15: POC Glucose 97 Micro: Microbiology 06/21/21 03:34 Blood Culture (Wb) - Left Forearm Blood Culture - Final Escherichia coli Cardiology Labs/Tests 06/27/21 04:35: Sodium 136, Potassium 4.1, Chloride 103, Carbon Dioxide 30.0, Anion Gap 3 L, BUN 20 H, Creatinine 1.08 H, Est GFR (MDRD) Af Amer 65, Est GFR (MDRD) Non-Af 53 L, BUN/Creatinine Ratio 18.5, Glucose 75, Calcium 9.1, Magnesium 2.1 06/27/21 04:35: Phosphorus 4.0 Rhythm: Sinus rhythm Physical Exam Const alert and oriented x3 Orientation / Consciousness: awake HEENT normocephalic, head/scalp atraumatic and hearing grossly normal bilaterally Eyes PERRL, EOMs intact bilaterally and conjunctivae normal Neck full ROM, supple and no JVD Resp normal respiratory effort and clear to auscultation bilaterally Cardio regular rate, regular rhythm, S1 normal heart sound and S2 normal heart sound Heart Sounds: murmur systolic II/ soft mid left sternal border GI normal to inspection, nondistended, normoactive bowel sounds Extremity no pedal edema Skin no rashes or lesions noted Psych mental status grossly normal Assessment & Plan Assessment/Plan (1) Non-STEMI (non-ST elevated myocardial infarction): PLAN: The patient has had abnormal troponin I levels which have increased and then decreased. She has been reported as having no acute electrocardiographic changes. She does not describe at this time ongoing symptoms of classic angina pectoris. There has been concern that her abnormal troponin I levels may be a type II non-ST segment elevation [place] secondary to her underlying noncardiac issues with respect to her underlying pulmonary disease issues and/or bacteremia/sepsis issues. At the moment she is being monitored. She has undergone noninvasive valuation with transthoracic echocardiogram with the results as noted. Her previous [facility] and [facility] cardiovascular studies have been reviewed and are noted. She will continue medical management. She is pending transfer to an [facility] for continued post hospital OT/PT. Her outpatient noninvasive cardiovascular studies/stress nuclear imaging study has been placed on temporary hold ending continued recuperation and subsequent outpatient follow-up. (2) Atherosclerosis of [place] coronary artery of [place] heart without angina pectoris: PLAN: Her CAD history was reviewed. Again she is being monitored. She has undergone noninvasive valuation. She will continue medical management at this time. Consideration will be given in the future for further noninvasive and invasive studies when she has recuperated from her current noncardiovascular issues. The timing of these studies do need to take into consideration her ongoing noncardiac issues/concerns. (3) (HFpEF) heart failure with preserved ejection fraction: QUALIFIERS: Heart failure chronicity: acute Qualified Code(s): I50.31 - Acute diastolic (congestive) heart failure PLAN: She has had a history of heart failure with preserved ejection fraction. She should continue medical therapy with adjustment of diuretics and other medications as deemed appropriate as her course progresses. (4) Atrial septal defect: PLAN: She has undergone extensive evaluation at [facility] for concerns of her interatrial shunt. The recommendation was for no closure of her interatrial shunt but continued medical management for concerns of decreased diastolic compliance as well as cardiovascular risk factor modification and care. (5) Hyperlipidemia: QUALIFIERS: Hyperlipidemia type: unspecified Qualified Code(s): E78.5 - Hyperlipidemia, unspecified PLAN: Again, her lipid labs were reviewed. Her total cholesterol and LDL cholesterol appear to be under reasonably good control. As noted before she states she has been intolerant to statin therapy. (6) Hypertension: PLAN: Her blood pressure does need to be monitored with continued adjustment of her medications to assist with her blood pressure control. (7) SOB (shortness of breath): PLAN: Her main concern was shortness of breath. There are concerns that this is not all cardiovascular related. She will continue evaluation care per internal medicine for noncardiovascular issues. (8) Bacteremia: PLAN: She has been reported as having positive fevers and positive bacteremia. Her temperature appears to be decreasing. Her most recent WBC appears to have decreased. She is continuing medical therapy with antibiotic therapy. (9) Hypokalemia: PLAN: She has been noted to have hypokalemia. She will continue electrolyte supplementation as deemed appropriate. Addt'l Comments This note was generated using a voice recognition system and there may be incorrect words, spelling or punctuation that were not noted when reviewing the office note prior to saving.
[2021-06-27] MEDS: Pramipexole Di-HCl 1 MG Tablet 1.5 MG PO (08:35)
[2021-06-27] MEDS: DULoxetine Hcl 30 MG Capsule PO (08:35)
[2021-06-27] MEDS: Furosemide 40 MG Tablet PO (08:35)
[2021-06-27] MEDS: Metoprolol Tartrate 25 MG Tablet PO (08:36)
[2021-06-27] MEDS: Magnesium Chloride 64 MG Delay Rel.Tablet 128 MG PO (08:36)
[2021-06-27] MEDS: Isosorbide Mononitrate 30 MG Tablet PO (08:36)
[2021-06-27] MEDS: Pantoprazole Sodium 40 MG Tablet PO (08:36)
[2021-06-27] MEDS: Spironolactone 25 MG Tablet PO (08:36)
[2021-06-27] MEDS: Aspirin E.C. 81 MG Tablet PO (08:36)
[2021-06-27] MEDS: Enoxaparin 40 MG/0.4 ML Syringe SC (08:36)
[2021-06-27] MEDS: Menthol/Lanolin/Calamine/Znox 113 GM Tube 1 APPLIC TOPICAL (08:37)
[2021-06-27] MEDS: Insulin Human 75/25 Kwickpen 70 UNIT SC (08:38)
[2021-06-27] MEDS: Ibuprofen 400 MG Tablet PO (08:49)
--- NOTE | 2021-06-27 09:10 | CASEMGMT ---
Social Work Recieved call from Ingrid at the [facility]. Precert has been obtained. Pt can go to SNF today. Physician updated. Plan: [facility], skilled level of care on convalescent stay. When medically ready [facility]
--- NOTE | 2021-06-27 10:18 | PCM.TXEXTCAR ---
Diet 06/21/21 14:43 Diet: Cardiac: Calorie-Controlled Food consistency:: Regular Liquid Consistency:: Regular/Thin Type of Dietary Supplement:: Ensure Pudding Is pt able to select menu?: Yes Fluid restriction:: 1500 mL Diet Comments: EP w/ dinner only How many daily calories?: 1600 calorie Routine Orders/Code Status Suppository Type: Dulcolax 10mg Suppository Frequency: Daily PRN Routine Lab Work: CBC and BMP Code Status: Full Code Therapies Weight Bearing: Weight bearing as tolerated Extremity Affected:: Bilateral Lower Physical Therapy: Eval and Treat Occupational Therapy: Eval and Treat Speech Therapy: Eval and Treat Problem/Diagnosis (1) Non-STEMI (non-ST elevated myocardial infarction): Status: Acute (2) Atherosclerosis of [place] coronary artery of [place] heart without angina pectoris: Status: Chronic (3) (HFpEF) heart failure with preserved ejection fraction: Status: Acute (4) Atrial septal defect: Status: Chronic (5) Hyperlipidemia: Status: Chronic (6) Hypertension: Status: Chronic (7) SOB (shortness of breath): Status: Chronic (8) Bacteremia: Status: Acute (9) Hypokalemia: Status: Acute Allergies/Procedures Done in Hospital Allergies rivaroxaban [From Xarelto] Allergy (Intermediate, Verified 06/21/21 02:56) Itching latex Allergy (Verified 06/21/21 02:56) Itching pravastatin Allergy (Verified 06/21/21 02:56) Unknown codeine Adverse Reaction (Severe, Verified 06/21/21 02:56) Itching zolpidem [From Ambien] Adverse Reaction (Severe, Verified 06/21/21 02:56) Sleep walking/talking environmental Allergy (Uncoded 06/21/21 02:56) Other Type of Care/Length of Stay Estimated LOS: Convalescent Care Less Than 30 days Type of Care Needed: Skilled Rehab Potential: Good Prognosis: Good Additional Orders/Day of Discharge Day of Discharge: 06/27/21 Dietary and Speech Recommendations Dietitian Recommendations/Changes: Will continue 1600 reji Cardiac diet w/ 1500 ml FR/day Will discontinue ensure pudding w/ dinner per pt request Available to provide diet education if desired by pt Discharge Plan Admission Admit Date/Time: 06/21/21 06:32 Primary Reason for Your Visit: Non-STEMI Attending Provider: Isaac Hernandez Primary Care Provider: Kaz Cervantes Consulting Providers: Kam Rice Discharge Orders/Prescriptions Prescriptions: New furosemide 40 mg Tablet 40 mg PO BIDLX Qty: 0 RF: 0 levofloxacin 750 mg Tablet 750 mg PO DAILY@0600 Qty: 0 RF: 0 Mag 64 64 mg Tablet,Delayed Release (Dr/Ec) 128 mg PO DAILY Qty: 0 RF: 0 spironolactone 25 mg Tablet 25 mg PO DAILY Qty: 0 RF: 0 insulin lispro [Humalog KwikPen Insulin] 100 unit/mL Insulin Pen See Protocol unit subcut ACHS Qty: 0 RF: 0 Continued albuterol sulfate 2.5 mg /3 mL (0.083 %) solution for nebulization 2.5 mg INHALATION Q4H PRN (Reason: shortness of breath or wheezing) Qty: 180 RF: 3 omeprazole 40 mg capsule,delayed release(DR/EC) 40 mg PO DAILY RF: 0 citalopram 40 mg tablet 40 mg PO QHS RF: 0 aspirin [Adult Low Dose Aspirin] 81 mg tablet,delayed release (DR/EC) 81 mg PO DAILY RF: 0 acetaminophen 500 mg tablet 1,000 mg PO Q6H PRN (Reason: Pain Score 1-5/10) RF: 0 duloxetine 30 mg capsule,delayed release(DR/EC) 30 mg PO BID RF: 0 ropinirole 4 MG tablet 4 mg PO BID RF: 0 insulin NPH and regular human 100 unit/mL (70-30) suspension 70 unit SC QAM Qty: 0 RF: 0 losartan 100 mg tablet 100 mg PO QHS RF: 0 isosorbide mononitrate 30 mg tablet extended release 24 hr 30 mg PO DAILY Qty: 90 RF: 3 albuterol sulfate [ProAir HFA] 90 mcg/actuation HFA aerosol inhaler 2 puff INHALATION Q6H PRN (Reason: shortness of breath or wheezing) Qty: 18 RF: 6 Changed metoprolol succinate 100 mg tablet extended release 24 hr 50 mg PO DAILY Qty: 0 RF: 0 insulin NPH and regular human 100 unit/mL (70-30) suspension 80 unit SC QPM Qty: 0 RF: 0 Discontinued hydrochlorothiazide 25 mg tablet 25 mg PO DAILY Qty: 90 RF: 3 Referrals / Follow Up: Kaz Cervantes DO [Primary Care Provider] - In 1 Week Mohan Sepulveda MD [STAFF PHYSICIAN] - Within 1 Month Disposition Disposition (needs filled in before D/C Order can be placed): Long Term Facility
--- NOTE | 2021-06-27 10:58 | PCM.DC.SUM ---
Providers Date of Admission: 06/21/21 Date of Discharge: 06/27/21 Primary Care Physician: Dr. Kaz Cervantes, Consultations 06/21/21 07:46 Consult: Cardiology Routine Consulting Provider: Kam Rice Reason for Consult: nstemi EMERGENT Consult: No MD Notified: Yes Date Notified: 06/21/21 Time Notified: 08:58 Method of Notification: Text Reason For Visit: NSTEMI Diagnosis Discharge Diagnosis (1) Non-STEMI (non-ST elevated myocardial infarction): Status: Acute Code(s): I21.4 - Non-ST elevation (NSTEMI) myocardial infarction (2) Atherosclerosis of [place] coronary artery of [place] heart without angina pectoris: Status: Chronic Code(s): I25.10 - Atherosclerotic heart disease of [place] coronary artery without angina pectoris (3) (HFpEF) heart failure with preserved ejection fraction: Status: Acute Code(s): I50.30 - Unspecified diastolic (congestive) heart failure Qualifiers: Heart failure chronicity: acute Qualified Code(s): I50.31 - Acute diastolic (congestive) heart failure (4) Atrial septal defect: Status: Chronic Code(s): Q21.1 - Atrial septal defect (5) Hyperlipidemia: Status: Chronic Code(s): E78.5 - Hyperlipidemia, unspecified Qualifiers: Hyperlipidemia type: unspecified Qualified Code(s): E78.5 - Hyperlipidemia, unspecified (6) Hypertension: Status: Chronic Code(s): I10 - Essential (primary) hypertension (7) SOB (shortness of breath): Status: Chronic Code(s): R06.02 - Shortness of breath (8) Bacteremia: Status: Acute Code(s): R78.81 - Bacteremia (9) Hypokalemia: Status: Acute Code(s): E87.6 - Hypokalemia Medications at Discharge Home Medications ropinirole 4 mg PO BID 02/23/13 losartan 100 mg tablet 100 mg PO QHS 02/28/17 isosorbide mononitrate 30 mg tablet,extended release 24 hr 30 mg PO DAILY #90 tab 10/11/19 albuterol sulfate 2.5 mg INHALATION Q4H PRN #180 ml 12/01/19 acetaminophen 500 mg tablet 1,000 mg PO Q6H PRN tab 07/06/20 aspirin 81 mg tablet,delayed release 81 mg PO DAILY 07/06/20 citalopram 40 mg tablet 40 mg PO QHS tablet 07/06/20 omeprazole 40 mg capsule,delayed release 40 mg PO DAILY cap 07/06/20 duloxetine 30 mg capsule,delayed release 30 mg PO BID cap 08/11/20 albuterol sulfate 90 mcg/actuation aerosol inhaler 2 puff INHALATION Q6H PRN #18 g 12/11/20 furosemide 40 mg PO BIDLX #0 tab 06/27/21 insulin NPH and regular human 70 unit SC QAM #0 ml 06/27/21 insulin NPH and regular human 80 unit SC QPM #0 ml 06/27/21 insulin lispro [Humalog KwikPen Insulin] See Protocol SUBCUT ACHS #0 ml 06/27/21 levofloxacin 750 mg PO DAILY@0600 #0 tab 06/27/21 magnesium chloride [Mag 64] 128 mg PO DAILY #0 tab 06/27/21 metoprolol succinate 50 mg PO DAILY #0 tablet 06/27/21 spironolactone 25 mg PO DAILY #0 tab 06/27/21 Hospital Course Summary of Care Provided Hospital Course: This 71-year-old female was admitted with shortness of breath and hypoxia along with diaphoresis and chills. Serial troponins were high diagnosed with non-NSTEMI. Twelve-lead EKG was unremarkable. Further hospital course as mentioned below 1. non ST elevation myocardial infarction, suspect type II event. Sound Recordist was consulted. Continue ASA, metoprolol, isosorbide mononitrate. Fasting profile LDL 81, total cholesterol 137. Patient is allergic to statin. Echo showed EF of 60%. No additional plan for inpatient cardiology work-up or procedure but will need as an outpatient. Heart rate and blood pressure and respiratory rate in normal limit. Sinus rhythm. No chest pain. Dyspnea on exertion. 2. Hypokalemia, corrected Initially complicated by hypomagnesemia. On potassium chloride 40 M EQ twice daily. Last magnesium was 2.3. Potassium supplement replaced with spironolactone. 06/26: Potassium 4.1. Hypomagnesemia, IV magnesium ordered. Repeat magnesium 2.1. Continue oral magnesium as patient is on Lasix. Check periodically BMP and magnesium as an outpatient. 3. Acute heart failure with preserved ejection fraction Complicated by flash pulmonary edema Continue with furosemide Repeat chest x-ray showed pulmonary vascular congestion which was likely due to hypertensive urgency The patient had pharmacological nuclear stress test in October 2016 which was negative. Last echo 06/21/2021 shows EF 60% with preserved EF. Mild aortic sclerosis but no stenosis. Patient had MARIELLA on April 08, 2017 reported no thrombus in left atrial appendage, mild MR bidirectional interatrial shunt predominantly left to right, consistent with PFO. After that patient had right heart cath in [facility] on 11/13/2017, reported RA mean pressure 15 mmHg, RV 51/18, PA mean pressure 27, PCWP mean 20 mmHg, left atrial pressure 18 mmHg overall suggestive of mild pulmonary hypertension secondary to left diastolic dysfunction. Patient had coronary angiogram showed right dominant circulation, heavily calcified vessels, mild to moderate diffuse calcific coronary artery disease. 4. Bacteremia Secondary to pansensitive E. coli. Unclear source of the E. coli. Discontinue pip/tazo and changed to levofloxacin and treat 06/30 5. Acute hypoxic respiratory failure secondary to #3 Improving Wean oxygen as able 6. Hypertensive urgency resolved 7. Diabetes type II Continued mixed insulin regiment and sliding scale insulin. Glucose are controlled. 8. VTE prophylaxis: Enoxaparin 9. COVID-19 vaccination status: Patient has been vaccinated and boosted with [employer]. No recent COVID-19 contacts. 10. CODE STATUS: Addressed with patient. Patient is full CODE STATUS. 11. Debility: Patient states that she is too weak to go home. Was unable to walk 20 feet with therapy on the first. Requires 2 person assist. Discharge medication reconciliation done. Discharge follow-up instructions completed. Discharge process discussed with the patient and all questions were answered to patient's satisfaction. Discharged to SNF Total time spent, exact 35 minutes on discharge meds reconciliation, examination, coordination of care with nurses and ancillary staff, review of imaging and blood test and discussion with the patient on follow-up instructions. Physical Exam Narrative Seen and examined on the day of discharge. She has a chronic right upper arm pain. Mostly due to laying down/chronic degenerative arthritis. Shortness of breath is better but still has dyspnea on exertion. General: Alert, Oriented x3, Cooperative HEENT: Atraumatic, PERRLA, EOMI, Normocephalic Oral: No Gingival or Mucosal Lesions/ Ulcerations Neck: Supple, No JVD, Negative Carotid Bruits Lungs: Air entry diminished in bilateral lung bases. No crepitation/rhonchi Cardiovascular: Regular sinus rhythm, Normal S1, Normal S2, systolic murmur grade 2/6 over LLSB Abdomen: Bowel Sounds Present, Soft, Non Tender, Non-Distended : No renal angle tenderness. No suprapubic tenderness. Extremities: No ankle edema, Capillary Refill Less than 3 Seconds Skin: No rashes, No breakdown Musculoskeletal: No Tenderness to Palpation of Joints or Extremities Neurological: Cranial nerves II-XII grossly intact, DTR 2+/4, muscle strength 4/5 at major joints Psych/Mental Status: Flat affect Weight / BMI Weight Weight: 241 lb 6.499 oz Body Mass Index (BMI) 43.2 ABG / Lab / Microbiology Data Result Diagrams: 06/24/21 05:15 06/27/21 04:35 Laboratory: Laboratory Results - last 24 hr 06/26/21 11:02: POC Glucose 103 06/26/21 16:02: POC Glucose 109 H 06/26/21 21:39: POC Glucose 214 H 06/27/21 04:35: Sodium 136, Potassium 4.1, Chloride 103, Carbon Dioxide 30.0, Anion Gap 3 L, BUN 20 H, Creatinine 1.08 H, Estim Creat Clear Calc 41.86, Est GFR (MDRD) Af Amer 65, Est GFR (MDRD) Non-Af 53 L, BUN/Creatinine Ratio 18.5, Glucose 75, Calcium 9.1, Magnesium 2.1 06/27/21 04:35: Phosphorus 4.0 06/27/21 06:15: POC Glucose 97 Microbiology: Microbiology 06/21/21 03:34 Blood Culture (Wb) - Left Forearm Blood Culture - Final Escherichia coli 06/22/21 11:25 Urine, Clean Catch Urine Culture - Final Gram negative rubio 06/21/21 03:30 Blood Culture (Wb) #2 - Right Hand Blood Culture - Final Presumptive E. coli 06/21/21 03:25 Nasal Secretion SARS-CoV-2 & FLU Antigen (Rapid) - Final Meaningful Use Info Meaningful Use Diagnoses (Choose all that apply): AMI AMI/Post PCI/Angioplasty Aspirin given w/in 24hrs of arrival?: Yes ASA at discharge?: Yes Antiplatelet Therapy at Discharge:: Yes Statins at discharge?: No Reason statins not ordered:: Allergy Stuart/ARB at discharge?: Yes Beta Yonny at discharge?: Yes Done w/ Acute GA measure.: Yes Documented LVEF (%): 60 Discharge Plan Admission Admit Date/Time: 06/21/21 06:32 Primary Reason for Your Visit: Non-STEMI Attending Provider: Isaac Hernandez Primary Care Provider: Kaz Cervantes Consulting Providers: Kam Rice Discharge Orders/Prescriptions Prescriptions: New furosemide 40 mg Tablet 40 mg PO BIDLX Qty: 0 RF: 0 levofloxacin 750 mg Tablet 750 mg PO DAILY@0600 Qty: 0 RF: 0 Mag 64 64 mg Tablet,Delayed Release (Dr/Ec) 128 mg PO DAILY Qty: 0 RF: 0 spironolactone 25 mg Tablet 25 mg PO DAILY Qty: 0 RF: 0 insulin lispro [Humalog KwikPen Insulin] 100 unit/mL Insulin Pen See Protocol unit subcut ACHS Qty: 0 RF: 0 Continued albuterol sulfate 2.5 mg /3 mL (0.083 %) solution for nebulization 2.5 mg INHALATION Q4H PRN (Reason: shortness of breath or wheezing) Qty: 180 RF: 3 omeprazole 40 mg capsule,delayed release(DR/EC) 40 mg PO DAILY RF: 0 citalopram 40 mg tablet 40 mg PO QHS RF: 0 aspirin [Adult Low Dose Aspirin] 81 mg tablet,delayed release (DR/EC) 81 mg PO DAILY RF: 0 acetaminophen 500 mg tablet 1,000 mg PO Q6H PRN (Reason: Pain Score 1-5/10) RF: 0 duloxetine 30 mg capsule,delayed release(DR/EC) 30 mg PO BID RF: 0 ropinirole 4 MG tablet 4 mg PO BID RF: 0 insulin NPH and regular human 100 unit/mL (70-30) suspension 70 unit SC QAM Qty: 0 RF: 0 losartan 100 mg tablet 100 mg PO QHS RF: 0 isosorbide mononitrate 30 mg tablet extended release 24 hr 30 mg PO DAILY Qty: 90 RF: 3 albuterol sulfate [ProAir HFA] 90 mcg/actuation HFA aerosol inhaler 2 puff INHALATION Q6H PRN (Reason: shortness of breath or wheezing) Qty: 18 RF: 6 Changed metoprolol succinate 100 mg tablet extended release 24 hr 50 mg PO DAILY Qty: 0 RF: 0 insulin NPH and regular human 100 unit/mL (70-30) suspension 80 unit SC QPM Qty: 0 RF: 0 Discontinued hydrochlorothiazide 25 mg tablet 25 mg PO DAILY Qty: 90 RF: 3 Referrals / Follow Up: Kaz Cervantes DO [Primary Care Provider] - In 1 Week Mohan Sepulveda MD [STAFF PHYSICIAN] - Within 1 Month Disposition Disposition (needs filled in before D/C Order can be placed): Longterm Facility Charges/Coding Visit Charges Inpatient E&M: 15482 Disch Hosp
[2021-06-27 11:21] LABS: Bedside Glucose 62 mg/dL (74-106)
--- NOTE | 2021-06-27 11:32 | CASEMGMT ---
Social Work Pt is ready for discharge at this time. SW met with pt and she is agreeable to d/c to the [facility]. 7000 convalescent form complete in [facility]. Orders faxed to [place]. Cot transportation arranged for 1300 order picker by [facility]. Nursing, pt and [facility] updated on time of order picker. Plan: [facility], Skilled level of care under convalescent stay. RICHARD Beckford
[2021-06-27 11:40] LABS: Bedside Glucose 82 mg/dL (74-106)
--- NOTE | 2021-06-27 13:07 | NURSING ---
Report called to [facility].
== END 2021-06-27 13:24 | DRG 280 ==
LOC: ED 06:46 → PCU 07:27
PROVIDERS: Internal Medicine; Internal Medicine Cardiovascular Disease; Admitting Provider Hospitalist; Emergency Provider Emergency Medicine; PCP Family Medicine; Visit Provider Internal Medicine
DX: I11.0 Hypertensive heart disease with heart failure (principal); I16.0 Hypertensive urgency; I50.33 Acute on chronic diastolic (congestive) heart failure; I21.A1 Myocardial infarction type 2; N17.9 Acute kidney failure, unspecified; R78.81 Bacteremia; B96.20 Unspecified Escherichia coli [E. coli] as the cause of diseases classified elsewhere; J96.01 Acute respiratory failure with hypoxia; E87.6 Hypokalemia; T50.2X5A Adverse effect of carbonic-anhydrase inhibitors, benzothiadiazides and other diuretics, initial encounter; E83.42 Hypomagnesemia; J44.1 Chronic obstructive pulmonary disease with (acute) exacerbation; Z20.822 Contact with and (suspected) exposure to COVID-19; E11.40 Type 2 diabetes mellitus with diabetic neuropathy, unspecified; I25.10 Atherosclerotic heart disease of native coronary artery without angina pectoris; I10 Essential (primary) hypertension; E78.5 Hyperlipidemia, unspecified; J45.909 Unspecified asthma, uncomplicated; K21.9 Gastro-esophageal reflux disease without esophagitis; G47.33 Obstructive sleep apnea (adult) (pediatric); E66.01 Morbid (severe) obesity due to excess calories; Z68.41 Body mass index [BMI] 40.0-44.9, adult; Z99.81 Dependence on supplemental oxygen; Z79.82 Long term (current) use of aspirin; Z79.4 Long term (current) use of insulin
CPT/HCPCS: 36415; 36600; 71045; 71275; 80048; 80061; 81001; 82803; 82962; 83605; 83735; 83880; 84100; 84484; 85025; 85379; 85610; 85730; 87040; 87086; 87088; 87186; 87428; 93005; 93306; 94002; 94640; 94762; 97110; 97162; 97166; 97530; 97535; 97802; 99251; 99285; J7050; Q9957; Q9967; A4216; C8929; G0463; J1940

== ENCOUNTER → 2021-08-23 | Outpatient (CLI) | payer MEDICARE, SELFPAY ==
[2021-08-23 18:11] LABS: Anion Gap 7 (5-15); BUN 20 mg/dL (7-18); Calcium,Total 9.1 mg/dL (8.5-10.1); Chloride 102 mmol/L (98-107); EST Glomerular Filtration Rate 58 mL/min (>60); Est Glom Filt Rate - Afr Amer 70 mL/min (>60); Glucose 82 mg/dL (74-106); Potassium 3.5 mmol/L (3.5-5.1); Sodium Level 139 mmol/L (136-145)
== END | disposition home or self-care (01) ==
LOC: MTLAB 14:28
PROVIDERS: PCP Family Medicine; Referring Provider Physician Assistant Medical; Visit Provider Physician Assistant Medical
DX: I11.0 Hypertensive heart disease with heart failure (principal); I50.31 Acute diastolic (congestive) heart failure
CPT/HCPCS: 36415; 80048

== ENCOUNTER → 2021-09-04 | Outpatient (CLI) | payer MEDICARE, SELFPAY ==
--- NOTE | 2021-09-04 08:52 | STRESSREP_ITS ---
Stress Test Report Date: 09-04-2021 Procedure: Pharmacologic stress nuclear imaging study Indications: Chest pain; CAD; intra-atrial shunt; COVID-19; COPD; SHANNON Consent: Per the patient Procedure: The patient underwent pharmacologic (Regadenoson 0.4mg ) evaluation with a peak heart rate of 76 beats per minute (50%predicted maximal heart rate) and a peak blood pressure of 144/78 mmHg. The baseline ECG demonstrated normal sinus rhythm. The peak pharmacologic ECG demonstrated no obvious ECG changes. There was an isolated PVC during infusion and a rare PVC during recovery. There was no complaint of chest discomfort during pharmacologic infusion or recovery. The examination was discontinued secondary to completion of protocol. Impression: 1. Pharmacologic (Regadenoson) evaluation 2. Peak pharmacologic ECG with no obvious ECG changes. 3. There was an isolated PVC during infusion and a rare PVC during recovery. 4. Nuclear images pending Myocardial perfusion imaging study: Technique: The patient was injected with 14.6 millicuries of technetium 99m Cardiolite and subsequently rest SPECT Cardiolite nuclear imaging was obtained in the ho rizontal long, vertical long, and short axis views. The patient underwent pharmacologic (Regadenoson) evaluation with a peak heart rate of 76 beats per minute (50% percent predicted maximal heart rate) and a peak blood pressure of 144/78 mmHg. The patient was injected with 44.4 millicuries of technetium 99m Cardiolite and subsequently stress SPECT Cardiolite nuclear imaging was obtained in the horizontal long, vertical long, and short axis views. A gated Cardiolite study at peak stress was obtained. Interpretation: Rest and stress SPECT Cardiolite nuclear imaging status post realignment, no rmalization, and attenuation correction demonstrate relative uniform tracer uptake and myocardial perfusion appearing within normal limits. There is end systolic thickening and brightening. The gated Cardiolite study demonstrates myocardial thickening and inward wall motion. The reported LVEF is 55%. Impression: 1. Rest and stress SPECT Cardiolite nuclear imaging demonstrate relative uniform tracer uptake and myocardial perfusion appearing within normal limits. 2. The gated Cardiolite study reports an LVEF of 55%. This note was generated with [employer] software. It may contain incorrect words, spelling, and punctuation that were not noted in checking the note before signing.
== END | disposition home or self-care (01) ==
LOC: CVS 06:25
PROVIDERS: PCP Family Medicine; Referring Provider Physician Assistant Medical; Visit Provider Physician Assistant Medical
DX: R07.9 Chest pain, unspecified (principal); I50.31 Acute diastolic (congestive) heart failure; I11.0 Hypertensive heart disease with heart failure; I25.10 Atherosclerotic heart disease of native coronary artery without angina pectoris
CPT/HCPCS: 78452; 93017; A9500; A4216; J2785

== ENCOUNTER → 2021-09-20 | Outpatient (CLI) | payer MEDICARE, SELFPAY ==
--- NOTE | 2021-09-20 12:32 | MRI_ITS ---
STUDY: MRI RIGHT SHOULDER REASON FOR EXAM: Right shoulder pain. TECHNIQUE: Standardized fat and water weighted pulse sequences were obtained in all 3 orthogonal planes. COMPARISON: Radiographs of the right humerus 02/01/2021. FINDINGS: There is a full-thickness tear of the supraspinatus and infraspinatus tendons retracted approximately 4.1 cm to the level of the glenohumeral joint (T2 coronal images 4-13). There is a full-thickness tear of the subscapularis tendon (fat-suppressed proton-density axial images 12-14). Normal teres minor tendon. There is atrophy with partial fat replacement of the supraspinatus muscle (T2 axial image 8). There is atrophy with fat replacement of the infraspinatus muscle (T2 axial image 13). There is atrophy with fat replacement of the subscapularis muscle (T2 axial image 18). There is atrophy with partial fat replacement of the posterior aspect of the teres minor muscle (T2 sagittal image 20). There is glenohumeral arthrosis with chondral thinning (T2 axial images 10, 11) and subchondral bone edema of the superior medial humeral head and superior glenoid (T2 coronal images 7-11). There is a glenohumeral joint effusion. There is superior migration of the humeral head secondary to the retracted rotator cuff tear. There is a tear with nonvisualization of the intracapsular long biceps tendon. There is degeneration of the labrum. Normal capsulo- ligamentous complex. There is acromioclavicular arthrosis without substantial undersurface osteophytes (T2 sagittal image 16). There is a Type I morphology (flat undersurface), with a neutral orientation. There is subacromial-subdeltoid bursal fluid. There is a low-grade strain of the lateral deltoid muscle (T2 coronal images 10-12). Normal trapezius muscle. MRI/Upper Ext Joint Only(Routine) IMPRESSION: Full-thickness tear of the supraspinatus and infraspinatus tendons. Full-thickness tear of the subscapularis tendon. Atrophy of the muscles of the rotator cuff. Glenohumeral arthrosis with degeneration labrum. Tear of the long biceps tendon. Acromioclavicular arthrosis. Low-grade strain of the lateral deltoid muscle. Glenohumeral joint fluid communicating with the subacromial-subdeltoid bursa. Electronically Signed: Russel Carrion MD at 10:37 EDT ,
== END | disposition home or self-care (01) ==
LOC: MRI 12:29
PROVIDERS: PCP Family Medicine; Referring Provider Orthopaedic Surgery; Visit Provider Orthopaedic Surgery
DX: M19.011 Primary osteoarthritis, right shoulder (principal); M62.50 Muscle wasting and atrophy, not elsewhere classified, unspecified site; S43.421D Sprain of right rotator cuff capsule, subsequent encounter
CPT/HCPCS: 73221

== ENCOUNTER → 2021-11-01 | Outpatient (CLI) | payer MEDICARE, SELFPAY ==
--- NOTE | 2021-11-01 15:03 | CT_ITS ---
STUDY: CT RIGHT SHOULDER REASON FOR EXAM: Right shoulder osteoarthritis, surgical planning. TECHNIQUE: The patient was scanned in a multi detector CT scanner. High resolution transaxial imaging was performed without the administration of intravenous contrast material. Sagittal and coronal images were reconstructed. Individualized dose optimization techniques were used for this CT. COMPARISON: MRI report 09/20/2021. FINDINGS: There is joint space narrowing of the glenohumeral articulation (axial images 25, 26). Normal glenoid rim, neck and visualized scapula. There is superior migration of the humeral head secondary to rotator cuff pathology and sclerosis of the superior humeral head and cystic change/sclerosis of the acromium from abutment (sagittal reconstructions 43). Normal coracoid process. Normal visualized lateral clavicle. There is acromioclavicular arthrosis (coronal reconstruction 40). There is a Type I morphology (flat undersurface), with a neutral orientation. There is fluid in the glenohumeral joint and subacromial-subdeltoid bursa with small calcific densities in the bursa (axial images 17, 18). There is atrophy with fat replacement of the muscles of the rotator cuff (sagittal reconstruction 60). CT/Extremity Upper without Contra IMPRESSION: Glenohumeral arthrosis. Acromioclavicular arthrosis. Superior migration of the humeral head secondary to rotator cuff pathology and atrophy of the muscles of rotator cuff. Glenohumeral joint and subacromial-subdeltoid bursal fluid. Electronically Signed: Russel Carrion MD at 7:07 EDT ,
== END | disposition home or self-care (01) ==
LOC: CT 14:42
PROVIDERS: PCP Family Medicine; Visit Provider Student in an Organized Health Care Education/Training Program
DX: M19.011 Primary osteoarthritis, right shoulder (principal)
CPT/HCPCS: 73200

== ENCOUNTER → 2021-11-15 | Outpatient (CLI) | payer MEDICARE, SELFPAY ==
--- NOTE | 2021-11-15 13:00 | RAD_ITS ---
STUDY: X-RAY CHEST REASON FOR EXAM: Female, 71 years old. Preop for shoulder surgery TECHNIQUE: PA and lateral views of the chest. COMPARISON: 06/21/2021 FINDINGS: Stable appearance of neural stimulator catheters over the lower thoracic spine The lungs are clear and expanded. There is no demonstrated pleural abnormality. Normal size heart. Normal mediastinum and gigi. Normal visualized pulmonary arteries. Normal visualized aortic arch and descending thoracic aorta. There are diffuse degenerative changes of the visualized thoracic spine. There is degenerative osteoarthritis of the bilateral shoulders. There is no demonstrated abnormality of the visualized soft tissue structures of the upper abdomen. RAD/Chest PA and Lateral IMPRESSION: Normal x-ray examination of the chest. Electronically Signed: Kyle Kate MD at 8:42 EDT ,
--- NOTE | 2021-11-15 13:01 | EKG12_ITS ---
Test Reason : PRE OP Blood Pressure : / mmHG Vent. Rate : 062 BPM Atrial Rate : 062 BPM P-R Int : 252 ms QRS Dur : 084 ms QT Int : 458 ms P-R-T Axes : 072 003 039 degrees QTc Int : 464 ms Sinus rhythm with 1st degree A-V block Otherwise normal ECG Confirmed by PEPE MALIK, MARIEL ([id number]), graphic editor JAM RILEY ([id number]) on 11/19/2021 9:24:34 AM Referred By: Black Andrade Confirmed By:WANDA CANTU MD
[2021-11-15 14:41] LABS: Basophil# 0.04 X10^3/uL; Basophil% 0.5 % (0-1); Eosinophil# 0.39 X10^3/uL; Eosinophils% 4.7 % (0-5); Hematocrit 34.5 % (37-47); Hemoglobin 11.3 g/dL (12.0-15.0); Lymphocyte % 15.6 % (19-41); Mean Corp Hgb Conc 32.8 g/dL (32-36); Mean Corpuscular Hgb 30.1 pg (27.0-32.0); Mean Corpuscular Volume 91.8 fL (81-99); Mean Platelet Vol. 9.6 fl (6.2-12.0); Monocyte# 0.53 X10^3/uL; Monocyte% 6.3 % (0-10); NRBC Flagged by Analyzer 0 % (0-5); Neutrophil % 71.8 % (47-70); Platelet Count 250 K/mm3 (150-450); RBC Distribution Width CV 13.2 % (11.6-14.6); Red Blood Count 3.76 M/mm3 (4.2-5.4); White Blood Count 8.4 K/mm3 (4.4-11.0)
[2021-11-15 15:13] LABS: Albumin, Serum 3.1 g/dL (3.2-5.0); Anion Gap 7 (5-15); BUN 27 mg/dL (7-18); BUN/Creat Ratio 22.3 RATIO (10-20); Calcium,Total 8.5 mg/dL (8.5-10.1); Chloride 104 mmol/L (98-107); Creatinine, Serum 1.21 mg/dL (0.55-1.02); EST Glomerular Filtration Rate 47 mL/min (>60); Est Glom Filt Rate - Afr Amer 57 mL/min (>60); Glucose 186 mg/dL (74-106); Magnesium 1.6 mg/dL (1.6-2.6); Potassium 3.7 mmol/L (3.5-5.1); Sodium Level 140 mmol/L (136-145)
[2021-11-15 15:30] LABS: Hemoglobin A1c 8.5 % (3.8-5.6)
== END | disposition home or self-care (01) ==
LOC: PAT 12-20 09:24
PROVIDERS: PCP Family Medicine; Referring Provider Student in an Organized Health Care Education/Training Program; Visit Provider Student in an Organized Health Care Education/Training Program
DX: Z01.818 Encounter for other preprocedural examination (principal)
CPT/HCPCS: 36415; 71046; 80048; 82040; 83036; 83735; 85025; 87081; 93005

== ENCOUNTER → 2021-11-23 | Outpatient (CLI) | payer MEDICARE, SELFPAY ==
[2021-11-23 14:58] LABS: Anion Gap 7 (5-15); BUN 19 mg/dL (7-18); BUN/Creat Ratio 17.8 RATIO (10-20); Calcium,Total 9.4 mg/dL (8.5-10.1); Chloride 104 mmol/L (98-107); Creatinine, Serum 1.07 mg/dL (0.55-1.02); EST Glomerular Filtration Rate 54 mL/min (>60); Est Glom Filt Rate - Afr Amer 65 mL/min (>60); Glucose 251 mg/dL (74-106); Sodium Level 141 mmol/L (136-145)
[2021-11-23 15:26] LABS: BNP,B-Type NATRIURETIC PEPTIDE 137.9 pg/mL (0-100)
== END | disposition home or self-care (01) ==
LOC: LAB 13:43
PROVIDERS: PCP Family Medicine; Referring Provider Nurse Practitioner Gerontology; Visit Provider Nurse Practitioner Gerontology
DX: R06.09 Other forms of dyspnea (principal)
CPT/HCPCS: 36415; 80048; 83880

== ENCOUNTER → 2022-02-12 | Outpatient (CLI) | payer MEDICARE, SELFPAY ==
[2022-02-12 15:34] LABS: Absolute Lymphocyte Count 1.89 X10^3/uL (0.83-4.51); Absolute Neutrophil Count 6.4 X10^3/uL (2.0-7.7); Basophil# 0.04 X10^3/uL; Basophil% 0.4 % (0-1); Eosinophils% 4.2 % (0-5); Hematocrit 37.2 % (37-47); Hemoglobin 12.3 g/dL (12.0-15.0); Lymphocyte # 1.89 X10^3/ul (0.83-4.51); Mean Corp Hgb Conc 33.1 g/dL (32-36); Mean Corpuscular Hgb 30.4 pg (27.0-32.0); Mean Corpuscular Volume 92.1 fL (81-99); Mean Platelet Vol. 9.2 fl (6.2-12.0); Monocyte# 0.61 X10^3/uL; Monocyte% 6.5 % (0-10); NRBC Flagged by Analyzer 0 % (0-5); Neutrophil % 67.8 % (47-70); Platelet Count 286 K/mm3 (150-450); RBC Distribution Width SD 44.2 fl (35.1-43.9); Red Blood Count 4.04 M/mm3 (4.2-5.4); White Blood Count 9.4 K/mm3 (4.4-11.0)
[2022-02-12 15:56] LABS: ALB/GLOB Ratio 0.8 RATIO (0.9-2.4); AST(SGOT) 11 U/L (15-37); Alanine Aminotransfer ALT/SGPT 20 U/L (13-56); Albumin, Serum 3.4 g/dL (3.2-5.0); Alkaline Phosphatase 57 U/L (45-117); Anion Gap 7 (5-15); BUN 18 mg/dL (7-18); BUN/Creat Ratio 16.8 RATIO (10-20); Calcium,Total 9.8 mg/dL (8.5-10.1); Chloride 104 mmol/L (98-107); Creatinine, Serum 1.07 mg/dL (0.55-1.02); EST Glomerular Filtration Rate 54 mL/min (>60); Est Glom Filt Rate - Afr Amer 65 mL/min (>60); Glucose 179 mg/dL (74-106); Potassium 4.6 mmol/L (3.5-5.1); Protein, Total 7.4 g/dL (6.4-8.2); Sodium Level 140 mmol/L (136-145)
[2022-02-12 16:00] LABS: Hemoglobin A1c 7.3 % (3.8-5.6)
== END | disposition home or self-care (01) ==
LOC: BFHLAB 13:34
PROVIDERS: PCP Family Medicine; Visit Provider Family Medicine
DX: E11.40 Type 2 diabetes mellitus with diabetic neuropathy, unspecified (principal); I10 Essential (primary) hypertension; R60.0 Localized edema
CPT/HCPCS: 36415; 80053; 83036; 85025

== ENCOUNTER → 2022-03-29 | Outpatient (CLI) | payer MEDICARE, SELFPAY ==
[2022-03-29 15:49] LABS: AST(SGOT) 11 U/L (15-37); Alanine Aminotransfer ALT/SGPT 22 U/L (13-56); Albumin, Serum 3.5 g/dL (3.2-5.0); Alkaline Phosphatase 53 U/L (45-117); Bilirubin, Direct 0.13 mg/dL (0.00-0.30); Cholesterol 181 mg/dL (200); High Density Lipoprotein 48 mg/dL; Protein, Total 7.5 g/dL (6.4-8.2); Triglycerides 121 mg/dL; Very Low Density Lipoprotein 24 mg/dL (5-40)
== END | disposition home or self-care (01) ==
LOC: MTLAB 12:42
PROVIDERS: PCP Family Medicine; Referring Provider Nurse Practitioner Gerontology; Visit Provider Nurse Practitioner Gerontology
DX: E11.69 Type 2 diabetes mellitus with other specified complication (principal); E78.5 Hyperlipidemia, unspecified
CPT/HCPCS: 36415; 80061; 80076

== ENCOUNTER → 2022-04-01 | Outpatient (CLI) | payer MEDICARE, SELFPAY ==
--- NOTE | 2022-04-05 12:06 | EKG12_ITS ---
Test Reason : PRE OP Blood Pressure : / mmHG Vent. Rate : 068 BPM Atrial Rate : 068 BPM P-R Int : 240 ms QRS Dur : 092 ms QT Int : 440 ms P-R-T Axes : -17 009 060 degrees QTc Int : 467 ms Sinus rhythm with 1st degree A-V block Otherwise normal ECG Confirmed by THERESA MALIK, TUCKER ([id number]), mapping editor JAM RILEY ([id number]) on 04/08/2022 12:10:16 PM Referred By: Black Andrade Confirmed By:TUCKER CARDENAS MD
--- NOTE | 2022-04-05 12:10 | RAD_ITS ---
INDICATION: PREOP EXAMINATION/TECHNIQUE: X-RAY - XR Chest 2 Views COMPARISON: November 15, 2021 FINDINGS: LINES/DEVICES: Spinal stimulator noted within the mid to lower thoracic canal. LUNGS: No consolidation, edema or effusion. No pneumothorax. MEDIASTINUM AND CARDIOVASCULAR STRUCTURES: Cardiac silhouette not enlarged. Central airways and mediastinal contour are unremarkable. Mild calcification of aortic knob. BONES AND SOFT TISSUES: Dorsal spine demonstrates scoliosis and degenerative changes as well as chronic compression deformities. Degenerative changes of the shoulders . Postsurgical changes of the lumbar spine No significant change since prior study RAD/Chest PA and Lateral IMPRESSION: No acute cardiopulmonary pathology Electronically Signed: Martir Venegas MD at 18:44 EST Reading Location ID and State: [facility] / [place] , Service support ,
[2022-04-05 12:51] LABS: Absolute Lymphocyte Count 1.45 X10^3/uL (0.83-4.51); Absolute Neutrophil Count 5.7 X10^3/uL (2.0-7.7); Basophil# 0.05 X10^3/uL; Basophil% 0.6 % (0-1); Eosinophil# 0.21 X10^3/uL; Eosinophils% 2.6 % (0-5); Hematocrit 37.9 % (37-47); Hemoglobin 12.7 g/dL (12.0-15.0); Lymphocyte # 1.45 X10^3/ul (0.83-4.51); Lymphocyte % 17.9 % (19-41); Mean Corp Hgb Conc 33.5 g/dL (32-36); Mean Corpuscular Volume 89.6 fL (81-99); Mean Platelet Vol. 8.9 fl (6.2-12.0); Monocyte# 0.53 X10^3/uL; Monocyte% 6.6 % (0-10); NRBC Flagged by Analyzer 0 % (0-5); Neutrophil # 5.74 X10^3/uL (2.7-7.7); Neutrophil % 71.1 % (47-70); Platelet Count 225 K/mm3 (150-450); RBC Distribution Width SD 42.6 fl (35.1-43.9); Red Blood Count 4.23 M/mm3 (4.2-5.4); White Blood Count 8.1 K/mm3 (4.4-11.0)
[2022-04-05 13:13] LABS: Magnesium 1.7 mg/dL (1.6-2.6)
[2022-04-05 13:17] LABS: Anion Gap 4 (5-15); BUN 14 mg/dL (7-18); BUN/Creat Ratio 14.5 RATIO (10-20); Calcium,Total 9.2 mg/dL (8.5-10.1); Chloride 101 mmol/L (98-107); Creatinine, Serum 0.96 mg/dL (0.55-1.02); EST Glomerular Filtration Rate 61 mL/min (>60); Est Glom Filt Rate - Afr Amer 73 mL/min (>60); Glucose 249 mg/dL (74-106); Hemoglobin A1c 8.7 % (3.8-5.6); Potassium 4.2 mmol/L (3.5-5.1); Sodium Level 135 mmol/L (136-145)
== END | disposition home or self-care (01) ==
LOC: PAT 05-01 15:16
PROVIDERS: Anesthesiology; PCP Family Medicine; Referring Provider Student in an Organized Health Care Education/Training Program; Visit Provider Student in an Organized Health Care Education/Training Program
DX: Z01.818 Encounter for other preprocedural examination (principal); Z53.9 Procedure and treatment not carried out, unspecified reason
CPT/HCPCS: 36415; 71046; 80048; 83036; 83735; 85025; 87081; 93005

== ENCOUNTER → 2022-05-14 | Outpatient (CLI) | payer MEDICARE, SELFPAY ==
[2022-05-16 23:02] LABS: Fructosamine 318 umol/L (0-285)
== END | disposition home or self-care (01) ==
LOC: BFHLAB 11:24
PROVIDERS: PCP Family Medicine; Visit Provider Family Medicine
DX: E11.40 Type 2 diabetes mellitus with diabetic neuropathy, unspecified (principal)
CPT/HCPCS: 36415; 82985

== ENCOUNTER → 2022-05-28 | Outpatient (CLI) | payer MEDICARE, SELFPAY ==
[2022-05-30 17:33] LABS: Fructosamine 328 umol/L (0-285)
== END | disposition home or self-care (01) ==
LOC: BFHLAB 15:31
PROVIDERS: PCP Family Medicine; Visit Provider Family Medicine
DX: E11.40 Type 2 diabetes mellitus with diabetic neuropathy, unspecified (principal)
CPT/HCPCS: 36415; 82985

== ENCOUNTER → 2022-07-16 | Outpatient (CLI) | payer MEDICARE, SELFPAY ==
--- NOTE | 2022-07-16 13:36 | ECHOCS_ITS ---
Reason For Study: DILATED AORTIC ROOT Procedure This was a 2D Doppler, Color Flow transthoracic echocardiogram. The study was technically difficult. Contrast injection was performed. Exam performed in department. Left Ventricle Normal LV size. The estimated ejection fraction is 60 %. No evidence for diastolic dysfunction. No regional wall motion abnormalities noted. Right Ventricle Normal RV size. Normal systolic function. Atria Normal left atrium. Normal right atrium. No doppler evidence for ASD. Mitral Valve There is no mitral valve stenosis. No mitral valve insufficiency. Tricuspid Valve There is no tricuspid stenosis. Trivial tricuspid valve insufficiency. Unable to estimate RV systolic pressure due to insufficient tricuspid regurgitant envelope. Aortic Valve Trisinus/trileaflet aortic valve. Aortic sclerosis, no stenosis. There is no aortic stenosis. No aortic valve insufficiency. Pulmonic Valve There is no pulmonic valvular stenosis. No pulmonic valve insufficiency. Great Vessels Normal aortic root. Pericardium/Pleural No pericardial effusion. Medication 22 gauge I.V. with prn adaptor inserted into right arm. Diluted definity 2ml given slow IV push to enhance endocardial definition. MMode/2D Measurements & Calculations Ao root diam: 3.5 cm LAV(MOD-bp): 55.8 ml LA A4 area: 18.5 cm2 LAV(MOD-bp) Indexed: 25.3 ml/m2 LAV(MOD-sp2): 55.1 ml LAV(MOD-sp4): 52.8 ml LA dimension(2D): 4.9 cm RA A4 area: 15.6 cm2 Time Measurements MV dec time: 0.18 sec Doppler Measurements & Calculations MV E max ray: 93.3 cm/sec Lat Peak E' Ray: 8.9 cm/sec Med Peak E' Ray: 6.6 cm/sec MV A max ray: 103.2 cm/sec E/E' lat: 10.5 E/E' med: 14.1 MV E/A: 0.90 MV V2 max: 102.6 cm/sec Ao V2 max: 100.5 cm/sec MV max P.2 mmHg MV dec slope: 536.9 cm/sec2 Ao max P.1 mmHg MV V2 mean: 56.1 cm/sec Ao V2 mean: 72.1 cm/sec MV mean P.6 mmHg Ao mean P.3 mmHg MV V2 VTI: 32.1 cm Ao V2 VTI: 26.6 cm AV (velocity ratio): 0.87 LV V1 max: 92.6 cm/sec PA V2 max: 111.9 cm/sec TR max ray: 265.6 cm/sec LV V1 max P.4 mmHg PA V2 mean: 81.0 cm/sec TR max P.2 mmHg LV V1 mean P.8 mmHg LV V1 mean: 62.4 cm/sec LV V1 VTI: 23.3 cm ECHO/Echo Complete W/ Contrast Interpretation Summary The estimated ejection fraction is 60 %. No evidence for diastolic dysfunction. Ordering Physician: Meg Stephens Referring Physician: Meg Stephens Performed By: Heaven Smyth RCS
== END | disposition home or self-care (01) ==
PROVIDERS: PCP Family Medicine; Referring Provider Nurse Practitioner Gerontology; Visit Provider Nurse Practitioner Gerontology
DX: I50.31 Acute diastolic (congestive) heart failure (principal)
CPT/HCPCS: 93306; Q9957; A4216; C8929

== ENCOUNTER → 2022-10-15 | Outpatient (CLI) | payer MEDICARE, SELFPAY ==
[2022-10-15 16:18] LABS: Color, Urine Yellow (Yellow); Glucose, Dipstick Normal (Normal); Ketone-Dipstick 5 mg/dl (Negative); Leukocyte Esterase-Dipstick 500 /ul (Negative); Nitrite-Dipstick Positive (Negative); Occult Blood-Urine 10 /ul (Negative); Protein-Dipstick 30 mg/dl (Negative); Specific Gravity, Urine 1.025 (1.002-1.030); Urine Bilirubin Dipstick 1 mg/dL (Negative); Urine Clarity Sl. Cloudy (Clear); Urine Urobilinogen 1 mg/dl (Normal)
== END | disposition home or self-care (01) ==
LOC: BFHLAB 11:15
PROVIDERS: PCP Family Medicine; Referring Provider Family Medicine; Visit Provider Family Medicine
DX: R30.0 Dysuria (principal)
CPT/HCPCS: 81002; 87077; 87086; 87088; 87186

== ENCOUNTER 2022-10-23 16:03 | Outpatient (CLI) | payer MEDICARE, SELFPAY ==
[2022-10-23 17:37] LABS: Absolute Lymphocyte Count 1.43 X10^3/uL (0.83-4.51); Absolute Neutrophil Count 5.2 X10^3/uL (2.0-7.7); Basophil# 0.05 X10^3/uL; Basophil% 0.6 % (0-1); Eosinophil# 0.57 X10^3/uL; Eosinophils% 7.2 % (0-5); Hematocrit 36.3 % (37-47); Hemoglobin 11.8 g/dL (12.0-15.0); Lymphocyte # 1.43 X10^3/ul (0.83-4.51); Lymphocyte % 18.2 % (19-41); Mean Corp Hgb Conc 32.5 g/dL (32-36); Mean Corpuscular Hgb 30.5 pg (27.0-32.0); Mean Corpuscular Volume 93.8 fL (81-99); Mean Platelet Vol. 9.4 fl (6.2-12.0); Monocyte# 0.59 X10^3/uL; Monocyte% 7.5 % (0-10); NRBC Flagged by Analyzer 0 % (0-5); Neutrophil # 5.15 X10^3/uL (2.7-7.7); Neutrophil % 65.5 % (47-70); Platelet Count 314 K/mm3 (150-450); RBC Distribution Width CV 13.5 % (11.6-14.6); RBC Distribution Width SD 46.3 fl (35.1-43.9); Red Blood Count 3.87 M/mm3 (4.2-5.4); White Blood Count 7.9 K/mm3 (4.4-11.0)
[2022-10-23 17:53] LABS: T3 Total - Triiodothyronine 0.98 ng/mL (0.6-1.81)
[2022-10-23 18:09] LABS: ALB/GLOB Ratio 0.8 RATIO (0.9-2.4); AST(SGOT) 16 U/L (15-37); Alanine Aminotransfer ALT/SGPT 18 U/L (13-56); Albumin, Serum 3.3 g/dL (3.2-5.0); Alkaline Phosphatase 49 U/L (45-117); Anion Gap 6 (5-15); BUN 19 mg/dL (7-18); BUN/Creat Ratio 18.8 RATIO (10-20); Calcium,Total 9.2 mg/dL (8.5-10.1); Chloride 104 mmol/L (98-107); Creatinine, Serum 1.01 mg/dL (0.55-1.02); EST Glomerular Filtration Rate 57 mL/min (>60); Est Glom Filt Rate - Afr Amer 69 mL/min (>60); Globulin 4.4 g/dL (2.2-4.2); Glucose 192 mg/dL (74-106); Phosphorus 3.3 mg/dL (2.5-4.9); Potassium 4.1 mmol/L (3.5-5.1); Protein, Total 7.7 g/dL (6.4-8.2); Sodium Level 138 mmol/L (136-145)
[2022-10-28 02:06] LABS: HEPATITIS B SURFACE AG Negative (Negative); Hep C Antibodies Non Reactive (Non Reactive); Hepatitis A IgM Antibody Negative (Negative); Hepatitis B Core AB IgM Negative (Negative); Immunoglobulin A 325 mg/dL (64-422); Immunoglobulin E 171 IU/mL (6-495); Immunoglobulin G 1169 mg/dL (586-1602); Immunoglobulin M 31 mg/dL (26-217); PROEL- Albumin 3.2 g/dL (2.9-4.4); PROEL- Alpha-1 Globulin 0.2 g/dL (0.0-0.4); PROEL- Alpha-2 Globulin 0.9 g/dL (0.4-1.0); PROEL- Beta Globulin 0.9 g/dL (0.7-1.3); PROEL- Globulin, Total 3.1 g/dL (2.2-3.9); PROEL- TOTAL PROTEIN 6.3 g/dL (6.0-8.5); Thyroid Peroxidase AB 68 IU/mL (0-34)
== END 2022-10-23 23:59 | disposition home or self-care (01) ==
LOC: MTLAB 16:04
PROVIDERS: PCP Family Medicine; Referring Provider Physician Assistant Medical; Visit Provider Physician Assistant Medical
DX: L29.9 Pruritus, unspecified (principal)
CPT/HCPCS: 36415; 80053; 80074; 82784; 82785; 84100; 84165; 84439; 84443; 84480; 85025; 86038; 86376

== ENCOUNTER → 2023-01-17 | Outpatient (CLI) | payer MEDICARE, SELFPAY ==
[2023-01-17 18:26] LABS: Anion Gap 4 (5-15); BUN 19 mg/dL (7-18); BUN/Creat Ratio 18.3 RATIO (10-20); Calcium,Total 9.5 mg/dL (8.5-10.1); Chloride 103 mmol/L (98-107); Creatinine, Serum 1.04 mg/dL (0.55-1.02); EST Glomerular Filtration Rate 55 mL/min (>60); Est Glom Filt Rate - Afr Amer 67 mL/min (>60); Glucose 225 mg/dL (74-106); Potassium 4.3 mmol/L (3.5-5.1); Sodium Level 137 mmol/L (136-145); T4 Free Direct 1.05 ng/dL (0.76-1.46); Thyroid Stim Hormone (TSH) 3.78 uIU/mL (0.358-3.74)
== END | disposition home or self-care (01) ==
LOC: BFHLAB 14:49
PROVIDERS: PCP Family Medicine; Referring Provider Family Medicine; Visit Provider Family Medicine
DX: I10 Essential (primary) hypertension (principal); E06.3 Autoimmune thyroiditis
CPT/HCPCS: 36415; 80048; 84439; 84443

== ENCOUNTER → 2023-02-24 | Outpatient (CLI) | payer MEDICARE, SELFPAY ==
[2023-02-24 16:43] LABS: AST(SGOT) 9 U/L (15-37); Alanine Aminotransfer ALT/SGPT 17 U/L (13-56); Albumin, Serum 3.5 g/dL (3.2-5.0); Alkaline Phosphatase 65 U/L (45-117); Bilirubin, Direct 0.11 mg/dL (0.00-0.30); Cholesterol 153 mg/dL (200); Globulin 3.9 g/dL (2.2-4.2); High Density Lipoprotein 57 mg/dL; Protein, Total 7.4 g/dL (6.4-8.2); Triglycerides 75 mg/dL; Very Low Density Lipoprotein 15 mg/dL (5-40)
== END | disposition home or self-care (01) ==
LOC: MTLAB 12:39
PROVIDERS: PCP Family Medicine; Referring Provider Nurse Practitioner Gerontology; Visit Provider Nurse Practitioner Gerontology
DX: E78.00 Pure hypercholesterolemia, unspecified (principal); E11.69 Type 2 diabetes mellitus with other specified complication
CPT/HCPCS: 36415; 80061; 80076

== ENCOUNTER 2023-04-24 20:22 | Emergency (ER) | payer MEDICARE, SELFPAY ==
[2023-04-24 20:24] VITALS: BP 109/68; PULSE 84; RESP 22; TEMP 37.1; O2SAT 91
--- NOTE | 2023-04-24 20:43 | EX.ED.DYSGE1 ---
HPI <ANATOLY Trevizo - Last Filed: 04/24/23 22:07> History of Present Illness Chief Complaint: General Illness Narrative Narrative: Patient is a 73-year-old female with history of obesity, DDD, type 2 diabetes, hypertension, hyperlipidemia who presents to the emergency department for nausea, diarrhea, generalized weakness. Patient denies any cough, she denies any fever or chills, denies any blood in stool or vomit. Patient states she is having difficulty ambulating at home because she is so weak. She is here for evaluation. [facility] <ANATLOY Trevizo - Last Filed: 04/24/23 22:07> [facility] Medical History (HFpEF) heart failure with preserved ejection fraction Abnormal echocardiogram Acute respiratory failure with hypoxia JILL (acute kidney injury) Anxiety and depression Arthritis Asthma Asthma Atherosclerosis of mak[place] coronary artery of makah heart without angina pectoris Atrial septal defect Back pain Back pain Bacteremia Blackout Bladder disease Cardiology follow-up encounter Carpal tunnel syndrome Chronic bronchitis COPD (chronic obstructive pulmonary disease) COVID-19 determined by clinical diagnostic criteria CPAP (continuous positive airway pressure) dependence Cystitis, acute DDD (degenerative disc disease), cervical Dehydration Dehydration with hyponatremia Depression Diabetic peripheral neuropathy Dietary restriction Difficulty chewing Difficulty swallowing Disequilibrium DM (diabetes mellitus), type 2, uncontrolled DM (diabetes mellitus), type 2, uncontrolled Edema Essential hypertension Gastric reflux Gastroenteritis GERD (gastroesophageal reflux disease) History of CHF (congestive heart failure) History of echocardiogram (~01/2017) History of echocardiogram History of echocardiogram History of edema History of heart attack History of heart attack History of IBS History of nuclear stress test (~10/2016) History of pain when walking History of pressure injury of skin History of stress test History of stress test Hx of falling Hx of transesophageal echocardiography (MARIELLA) for monitoring Hyperlipidemia Hypertension Hypertension Hypertension Hypokalemia IBS (irritable bowel syndrome) Insomnia Insulin dependent diabetes mellitus Morbid obesity Non-smoker Obesity (BMI 35.0-39.9 without comorbidity) On home oxygen therapy SHANNON (obstructive sleep apnea) Pain Pulmonary emboli Pulmonary embolism Recurrent falls Restless leg syndrome Restless legs Seasonal allergies Sepsis Shortness of breath on exertion Shortness of breath on exertion Sleep apnea SOB (shortness of breath) Spinal stenosis of lumbar region Uses wheelchair Uses wheelchair Vitamin D deficiency Walker as ambulation aid Wears dentures Wears glasses Home Medications ropinirole 4 mg tablet 4 mg PO BID RLS 02/23/13 [History Last Taken 12/25/20 06:00] losartan 100 mg tablet 100 mg PO QHS BP 02/28/17 [History Last Taken 03/24/17] isosorbide mononitrate 30 mg tablet,extended release 24 hr 30 mg PO DAILY BP #90 tabs 10/11/19 [Rx Last Taken 12/25/20 06:00] acetaminophen 500 mg tablet 1,000 mg PO Q6H PRN Pain Score 1-5/07/06/20 [History Last Taken Unknown] aspirin 81 mg tablet,delayed release (Adult Low Dose Aspirin) 81 mg PO DAILY heart health 07/06/20 [History Last Taken Unknown] citalopram 40 mg tablet 40 mg PO QHS 07/06/20 [History Last Taken Unknown] omeprazole 40 mg capsule,delayed release 40 mg PO DAILY 07/06/20 [History Last Taken 12/25/20 06:00] hydrochlorothiazide 25 mg tablet 25 mg PO DAILY 11/09/21 [History Last Taken Unknown] metoprolol succinate 100 mg tablet,extended release 24 hr 100 mg PO DAILY 11/09/21 [History Last Taken Unknown] potassium chloride 20 mEq tablet,extended release 20 meq PO DAILY 11/09/21 [History Last Taken Unknown] insulin human U-100 NPH-regulr 70-30 mix 100 unit/mL subcutaneous susp 80 unit subcut QAM 03/26/22 [History Last Taken Unknown] insulin human U-100 NPH-regulr 70-30 mix 100 unit/mL subcutaneous susp 80 unit subcut QPM 03/26/22 [History Last Taken Unknown] albuterol sulfate 2.5 mg/3 mL (0.083 %) solution for nebulization 2.5 mg (3 mL) inhalation Q4H PRN shortness of breath or wheezing #180 mL 05/16/22 [Rx Last Taken Unknown] albuterol sulfate 90 mcg/actuation aerosol inhaler (ProAir HFA) 2 puff inhalation Q6H PRN shortness of breath or wheezing #18 grams 06/12/22 [Rx Last Taken Unknown] amlodipine 5 mg tablet 5 mg PO DAILY #30 tabs 07/29/22 [Rx Last Taken Unknown] clonidine HCl 0.1 mg tablet 0.1 mg PO BID 07/29/22 [History Last Taken Unknown] ezetimibe 10 mg tablet (Zetia) 10 mg PO DAILY #90 tabs 07/29/22 [Rx Last Taken Unknown] pregabalin 50 mg capsule 100 mg PO BID 02/11/23 [History Last Taken Unknown] hydralazine 25 mg tablet 25 mg PO BID #60 tabs 02/27/23 [Rx Last Taken Unknown] nitrofurantoin monohydrate/macrocrystals 100 mg capsule 100 mg PO Q12 #10 CAPSULES 04/24/23 [Rx Last Taken Unknown] promethazine 25 mg tablet 25 mg PO Q6H PRN PRN Nausea #12 TABLETS 04/24/23 [Rx Last Taken Unknown] Allergy/AdvReac Type Severity Reaction Status Date / Time rivaroxaban [From Xarelto] Allergy Intermediate Itching Verified 04/24/23 20:30 Environmental Allergies: Allergy PT UNABLE Verified 04/24/23 20:30 Uncoded TO RESPOND-NEEDS F/U latex Allergy Itching Verified 04/24/23 20:30 pravastatin Allergy Unknown Verified 04/24/23 20:30 codeine AdvReac Severe Itching Verified 04/24/23 20:30 zolpidem [From Ambien] AdvReac Severe Sleep Verified 04/24/23 20:30 walking/talking Family History Father Heart disease Hypertension CAD (coronary artery disease) Arthritis Mother Hypertension Asthma Diabetes Heart disease COPD (chronic obstructive pulmonary disease) Surgical History History of appendectomy History of back surgery (~2018) History of cardiac catheterization History of carpal tunnel surgery of left wrist History of carpal tunnel surgery of left wrist History of carpal tunnel surgery of right wrist History of cholecystectomy (~09/2011) History of laminectomy (~07/2015) History of laparoscopic cholecystectomy History of umbilical hernia repair (~08/2012) Hx of left cataract extraction Hx of right cataract extraction sciatic nerve cauterization Social History Smoking Status: Never smoker second hand exposure: No alcohol intake: current alcohol intake frequency: holidays/special occasions only Alcohol type: beer and hard liquor substance use type: does not use caffeine: Yes Type: coffee Number of servings: 1 and tea what type of physical activity do you participate in: other details: physical therapy frequency: 1-2 times per week seatbelt use: always do you feel safe at home: Yes ROS <ANATOLY Trevizo - Last Filed: 04/24/23 22:07> ROS ED ROS Narrative Constitutional: Negative for fever, chills, weight loss. Positive for weakness Eyes: Negative for vision loss, vision change, double vision ENT: Negative for any sore throat, ear pain, congestion Cardiovascular: Negative for any chest pain, tightness, palpitations Respiratory: Negative for any cough, sputum production, hemoptysis, dyspnea, dyspnea on exertion, orthopnea Gastrointestinal: Negative for any vomiting, constipation, blood in stool, blood in vomit. Positive for abdominal cramping, diarrhea : Negative for any urinary frequency, dysuria, retention, blood in urine Muscle skeletal: Negative for any myalgias, arthralgias, neck pain, back pain Neurological: Negative for any headache, syncope, paresthesias, dizziness Skin: Negative for any rashes, lumps, itching, abrasions, lacerations Psychiatric: Negative for any depression, anxiety, stress, suicidal ideation, homicidal ideation Hematologic: Negative for any easy bruising, excessive bruising, easy bleeding Allergies: Negative for any eczema, hives, rash EXAM <ANATOLY Trevizo - Last Filed: 04/24/23 22:07> Physical Exam Narrative Exam Narrative: Vital signs reviewed. HEET: Head normocephalic atraumatic, TMs clear bilaterally. Posterior pharynx is clear, dry mucous membranes. Nares clear bilaterally. Neck: Supple with no lymphadenopathy or tenderness. No signs of meningismus. Cardiac: Regular rate and rhythm no murmurs gallops or rubs, equal peripheral pulses bilaterally. Respiratory: Lungs clear to auscultation bilaterally. No chest tenderness. Abdomen: Soft, nontender, nondistended. Negative for any peritoneal signs. No abdominal bruit or pulsatile masses. No hepatosplenomegaly Extremities: No peripheral edema, no signs of gross trauma or deformity. Active full range of motion of all extremities. Neuro: Cranial nerves II through XII intact, no focal neurological deficits. Skin: Clean dry and intact with no rash, purpura, petechiae, vesicles or pustules. Backs/flank: No CVA tenderness, no midline spinal tenderness, no deformity. Psych: Normal mood and affect. No SI, HI or acute psychosis. Const Vital Signs: 04/24/23 20:24 04/24/23 20:27 04/24/23 22:37 Temperature 98.7 F Temperature Source Oral Pulse Rate 84 85 Respiratory Rate 22 H 26 H Respiratory Effort Short of Breath Respiratory Pattern Tachypnea Blood Pressure 109/68 Blood Pressure Mean 81 Pulse Ox 91 95 Oxygen Delivery Method Room Air Nasal Cannula Oxygen Flow Rate (L/min) 2 Positive obese Nutritional Appearance: obese <Dr. Donato Harris MD - Last Filed: 04/24/23 23:18> Physical Exam Const Vital Signs: 04/24/23 20:24 04/24/23 20:27 04/24/23 22:37 Temperature 98.7 F Temperature Source Oral Pulse Rate 84 85 Respiratory Rate 22 H 26 H Respiratory Effort Short of Breath Respiratory Pattern Tachypnea Blood Pressure 109/68 Blood Pressure Mean 81 Pulse Ox 91 95 Oxygen Delivery Method Room Air Nasal Cannula Oxygen Flow Rate (L/min) 2 MDM <ANATOLY Trevizo - Last Filed: 04/24/23 22:07> [facility] Lab Data Labs: Laboratory Results - last 24 hr 04/24/23 04/24/23 20:35 21:55 WBC 11.2 H RBC 4.93 Hgb 14.5 Hct 43.6 MCV 88.4 MCH 29.4 MCHC 33.3 RDW Std Deviation 41.0 RDW Coeff of Mitzy 12.6 Plt Count 340 MPV 8.9 Immature Gran % (Auto) 0.800 Neut % (Auto) 78.4 H Lymph % (Auto) 13.0 L Catron % (Auto) 7.0 Eos % (Auto) 0.4 Baso % (Auto) 0.4 Absolute Neuts (auto) 8.8 H Absolute Lymphs (auto) 1.45 Nucleated RBC % 0 Sodium 131 L Potassium 3.5 Chloride 97 L Carbon Dioxide 25.0 Anion Gap 9 BUN 21 H Creatinine 1.24 H Est GFR (MDRD) Af Amer 55 L Est GFR (MDRD) Non-Af 45 L BUN/Creatinine Ratio 16.9 Glucose 261 H Calcium 9.7 Total Bilirubin 0.80 AST 16 ALT 20 Alkaline Phosphatase 65 Total Protein 8.0 Albumin 3.7 Globulin 4.3 H Albumin/Globulin Ratio 0.9 Lipase 24 Urine Color Yellow Urine Clarity Sl. Cloudy Urine pH 6.0 Ur Specific [place] 1.020 Urine Protein 100 H Urine Glucose (UA) 100 H Urine Ketones 15 H Urine Occult Blood 50 H Urine Nitrite Positive H Urine Bilirubin 1 H Urine Urobilinogen 1 H Ur Leukocyte Esterase 100 H Urine RBC 0-5 SEEN Urine WBC 10-25 SEEN Ur Squamous Epith Cells 0-5 SEEN Urine Bacteria 2+ Urine Mucus 0 SEEN Radiography Diagnostic Testing: Clinical Impression(s) from Imaging Studies Chest X-Ray 04/24/23 21:00 IMPRESSION: No acute disease. Electronically Signed: Bk Ley MD at 21:26 EST , Treatment and Re-Evaluation :: Patient appears to be in no obvious respiratory distress, vital signs are stable. Presenting to the emergency department for weakness, generalized malaise, diarrhea, generalized abdominal cramping. Differential diagnosis includes viral syndrome, dehydration, kidney injury, gastritis, bowel obstruction. Secondary to patient having little to no pain on palpation, this is low on my differential list. Patient does look dry on my examination, patient be given IV fluids, IV Zofran. We will do basic labs such as CMP, CBC, lipase. Patient received a urinalysis. Patient be reevaluated after medicines. Chest x-ray will be completed looking for any sort of pneumonia. All radiologic examinations were read, reviewed by the emergency department attending. From these reads, a plan of care will be put in place. Patient does have a slight leukocytosis with a white blood count 11.2. Patient's chemistries show sodium 131, creatinine slightly elevated 1.24 however patient is baseline between 1.07 and 1.2. Blood glucose was 261. Lipase was negative. Chest x-ray was negative for any acute process. Patient's COVID, influenza, RSV was negative. <Dr. Donato Harris MD - Last Filed: 04/24/23 23:18> [facility] Lab Data Attestation: I reviewed the patient's lab results. Labs: Laboratory Results - last 24 hr 04/24/23 04/24/23 20:35 21:55 WBC 11.2 H RBC 4.93 Hgb 14.5 Hct 43.6 MCV 88.4 MCH 29.4 MCHC 33.3 RDW Std Deviation 41.0 RDW Coeff of Mitzy 12.6 Plt Count 340 MPV 8.9 Immature Gran % (Auto) 0.800 Neut % (Auto) 78.4 H Lymph % (Auto) 13.0 L Catron % (Auto) 7.0 Eos % (Auto) 0.4 Baso % (Auto) 0.4 Absolute Neuts (auto) 8.8 H Absolute Lymphs (auto) 1.45 Nucleated RBC % 0 Sodium 131 L Potassium 3.5 Chloride 97 L Carbon Dioxide 25.0 Anion Gap 9 BUN 21 H Creatinine 1.24 H Est GFR (MDRD) Af Amer 55 L Est GFR (MDRD) Non-Af 45 L BUN/Creatinine Ratio 16.9 Glucose 261 H Calcium 9.7 Total Bilirubin 0.80 AST 16 ALT 20 Alkaline Phosphatase 65 Total Protein 8.0 Albumin 3.7 Globulin 4.3 H Albumin/Globulin Ratio 0.9 Lipase 24 Urine Color Yellow Urine Clarity Sl. Cloudy Urine pH 6.0 Ur Specific [place] 1.020 Urine Protein 100 H Urine Glucose (UA) 100 H Urine Ketones 15 H Urine Occult Blood 50 H Urine Nitrite Positive H Urine Bilirubin 1 H Urine Urobilinogen 1 H Ur Leukocyte Esterase 100 H Urine RBC 0-5 SEEN Urine WBC 10-25 SEEN Ur Squamous Epith Cells 0-5 SEEN Urine Bacteria 2+ Urine Mucus 0 SEEN Radiography Diagnostic Testing: Clinical Impression(s) from Imaging Studies Chest X-Ray 04/24/23 21:00 IMPRESSION: No acute disease. Electronically Signed: Bk Ley MD at 21:26 EST , Treatment and Re-Evaluation Comments:: I have personally performed a face to face assessment of the patient and have reviewed the KELLEY Note. I performed a substantive portion of the visit including all aspects of the following. My liang findings include: History is several days of diarrhea and diffuse upper abdominal pain. No vomiting but I cannot vomit. Feeling very weak and dehydrated very poor oral fluid intake. Subjective fevers. Exam is obese. No distress. No abdominal tenderness. Negative Hernandez. No jaundice. Lungs clear, heart is regular without tachycardia. Medical Decison Making suspect viral enteritis here. Will treat supportively with fluids and dicyclomine, screen for liver dysfunction, pancreatitis, metabolic derangement, dehydration with labs. Will obtain chest x-ray to rule out a basilar infiltrate. Chest x-ray 1 view on my interpretation negative for pneumonia, radiology in agreement. Labs show mild dehydration but no overt renal failure or other electrolyte imbalance. Urine is very suspicious for infection. It certainly possible this is due to contamination from diarrhea but with all of the abnormal indicators, although she is not having any symptoms other than urinary frequency which could be due to her hyperglycemia and contributing to her dehydration, I am going to place her on a few days of Macrobid given the possibility that this is a true positive. She is tolerating oral fluids and feeling better enough to go home with her who will take her, he is comfortable with that plan as well. Prescribed promethazine for nausea, ondansetron interacts with one of her antidepressants. Other additions or changes: [None] Discharge Plan Triage Chief Complaint: General Illness ED Midlevel Provider: Mohan Smith ED Provider: Donato Harris Dx/Rx/DC Orders Clinical Impression: Hyperglycemia due to type 2 diabetes mellitus, Gastroenteritis, Mild dehydration, Acute UTI Instructions: Viral Gastroenteritis, Dehydration Prescriptions: New nitrofurantoin monohyd/m-cryst [nitrofurantoin monohyd/m-cryst] 100 mg capsule 100 mg PO Q12 Qty: 10 0RF promethazine [promethazine] 25 mg tablet 25 mg PO Q6H PRN PRN (Reason: Nausea) Qty: 12 0RF No Action omeprazole 40 mg capsule,delayed release(DR/EC) 40 mg PO DAILY citalopram 40 mg tablet 40 mg PO QHS aspirin [Adult Low Dose Aspirin] 81 mg tablet,delayed release (DR/EC) 81 mg PO DAILY acetaminophen 500 mg tablet 1,000 mg PO Q6H PRN (Reason: Pain Score 1-5/10) albuterol sulfate 2.5 mg /3 mL (0.083 %) solution for nebulization 2.5 mg INHALATION Q4H PRN (Reason: shortness of breath or wheezing) Qty: 180 3RF insulin NPH and regular human 100 unit/mL (70-30) suspension 80 unit SC QAM Rx Instructions: Hold if glucose less than 130 mg/dl clonidine HCl 0.1 mg tablet 0.1 mg PO BID ezetimibe [Zetia] 10 mg tablet 10 mg PO DAILY Qty: 90 3RF amlodipine 5 mg tablet 5 mg PO DAILY Qty: 30 11RF ropinirole 4 MG tablet 4 mg PO BID Patient Comments: restless legs metoprolol succinate 100 mg tablet extended release 24 hr 100 mg PO DAILY hydrochlorothiazide 25 mg Tablet 25 mg PO DAILY potassium chloride 20 mEq Tablet Extended Release 20 meq PO DAILY insulin NPH and regular human 100 unit/mL (70-30) suspension 80 unit SC QPM Rx Instructions: Hold if glucose less than 130 mg/dl pregabalin 50 mg capsule 100 mg PO BID losartan 100 mg tablet 100 mg PO QHS isosorbide mononitrate 30 mg tablet extended release 24 hr 30 mg PO DAILY Qty: 90 3RF albuterol sulfate [ProAir HFA] 90 mcg/actuation HFA aerosol inhaler 2 puff INHALATION Q6H PRN (Reason: shortness of breath or wheezing) Qty: 18 6RF hydralazine 25 mg tablet 25 mg PO BID Qty: 60 11RF Primary Care Provider: Kaz Cervantes Referrals: Kaz Cervantes DO [Primary Care Provider] - 3-5 Days Disposition Disposition: Home, Self Care
--- OUTSIDE RECORDS SUMMARY | 2023-04-24 20:44 | XMS RPT_ITS | CCD ---
Author Name Unknown Address [id number] [place] [address] Organization [facility] Care Team Providers Care 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 Name Role Phone Eden Escalante LPN Unavailable Unavailable Eden Escalante LPN Unavailable Unavailable HOOD, MARIA J Unavailable Unavailable MOODISPAWKATE Unavailable Unavailable BILLY, FREDERICK A Unavailable Unavailable BILLY, FREDERICK A Unavailable Unavailable HOOD, MARIA J Unavailable Unavailable HOOD, MARIA J Unavailable Unavailable BILLY, FREDERICK A Unavailable Unavailable HOOD, MARIA J Unavailable Unavailable HOOD, MARIA J Unavailable Unavailable BILLY, FREDERICK A Unavailable Unavailable HOOD, MARIA J Unavailable Unavailable HOOD, MARIA J Unavailable Unavailable HOOD, MARIA J Unavailable Unavailable HOOD, MARIA J Unavailable Unavailable Billy DO, Frederick A Primary Care Provider [facility] DO, Frederick A Primary Care Provider Billy DO, Frederick A Primary Care Provider Billy DO, Frederick A Primary Care Provider MERCEDES BYRNES Attending Unavailable BILLY, FREDERICK A Referring Unavailable BILLY, FREDERICK A Primary Care Unavailable MERCEDES BYRNES Referring Unavailable BILLY, FREDERICK A Primary Care Unavailable MERCEDES BYRNES Attending Unavailable BILLY, FREDERICK A Primary Care Unavailable OLIVIA, AMRIT Referring Unavailable HILD AMRIT Attending Unavailable BILLY, FREDERICK A Primary Care Unavailable BILLY, FREDERICK A Primary Care Unavailable IZZYD, AMRIT Referring Unavailable OLIVIA AMRIT Attending Unavailable BILLY, FREDERICK A Primary Care Unavailable TESTMERCEDES GONZALEZ Referring Unavailable BILLY, FREDERICK A Primary Care Unavailable TESTKE, MERCEDES Attending Unavailable TESTRAKE, MERCEDES Referring Unavailable BILLY, FREDERICK A Primary Care Unavailable TESTRAKE, MERCEDES Referring Unavailable BILLY, FREDERICK A Primary Care Unavailable TESTRALOLI, MERCEDES Attending Unavailable TESTRAKE, MERCEDES Referring Unavailable BILLY, FREDERICK A Primary Care Unavailable Allergies Allergy Classification Reported Allergen(s) Allergy Type Date of Onset Reaction(s) Facility (17 sources) Latex; Translations: [LATEX] allergy to substance 0 Rash, Itching [facility] Work Phone: (2 sources) zolpidem Drug Allergy 5 Sleep walking and talking [facility] Work Phone: (13 sources) Cat; Translations: [CATS] Allergy to substance 6 Itching, Shortness of Breath, Other: See Comments [facility] (13 sources) Codeine; Translations: [CODEINE] Drug Allergy 9 Itching [facility] (13 sources) Dog; Translations: [DOGS] Allergy to substance 6 Itching, Shortness of Breath, Other: See Comments [facility] (13 sources) Pravastatin; Translations: [PRAVASTATIN] Drug Allergy 9 Myalgia [facility] (13 sources) Seasonal allergy; Translations: [SEASONAL ALLERGIES] Allergy to substance 4 Itching, Other: See Comments [facility] (13 sources) zolpidem; Translations: [ZOLPIDEM TARTRATE] Drug Allergy 9 Other: See Comments [facility] Medications Current Medications Medication Drug Class(es) Dates Sig (Normalized) Sig (Original) cephalexin 500 mg oral capsule (3 sources) Cephalosporin Antibacterial Start: 07-22-2022 End: 07-29-2022 take 1 capsule by mouth twice daily cephALEXin (KEFLEX) 500 mg capsule Take 1 capsule by mouth twice daily for 7 days. 14 capsule 0 07/22/2022 07/29/2022 Active Completed/Discontinued Medications Medication Drug Class(es) Dates Sig (Normalized) Sig (Original) acetaminophen 325 mg / HYDROcodone bitartrate 5 mg oral tablet (4 sources) Opioid Agonist Start: 05-06-2014 End: 08-23-2014 NORCO 5-325 MG TABS Two tablets by mouth as needed for pain HYDROCODONE-ACETAM INOPHEN [id number] Frederick Cervantes DO acetaminophen 325 mg / oxyCODONE hydrochloride 10 mg oral tablet (20 sources) Opioid Agonist Start: 05-01-2015 End: 10-16-2016 take 1 tablet by mouth every six hours as needed for pain OXYCODONE-ACETAMIN OPHEN 10-325 MG TABS One tablet by mouth evvery 6 hours as needed for severe pain OXYCODONE-ACETAMIN OPHEN [id number] Frederick Cervantes DO Problems Active Problems Problem Classification Problem Date Documented Da te Episodic/Chronic Acquired foot deformities (7 sources) Hammer toe; Translations: [Other hammer toe(s) (acquired), right foot] Onset: 3 Chronic Acquired foot deformities (2 sources) Talipes planus; Translations: [Flat foot [pes planus] (acquired), right foot] Episodic Anxiety disorders (2 sources) Mixed anxiety and depressive disorder; Translations: [Other specified anxiety disorders] Onset: 5 2014 Chronic Asthma (16 sources) Asthma; Translations: [Unspecified asthma, uncomplicated] Onset: 3 Resolved: 5 2014 Chronic Cardiac and circulatory congenital anomalies (2 sources) Congenital malformation of heart, unspecified; Translations: [Atrial septal defect] Onset: 8 Chronic Chronic kidney disease (4 sources) Chronic kidney disease stage 3; Translations: [Chronic kidney disease, stage 3 (moderate)] Onset: 5 Resolved: 5 11-09-2014 Chronic Chronic obstructive pulmonary disease and bronchiectasis (4 sources) Acute exacerbation of chronic obstructive airways disease with asthma; Translations: [Chronic obstructive pulmonary disease with (acute) exacerbation] Onset: 5 Resolved: 5 11-01-2014 Chronic Chronic ulcer of skin (3 sources) Ulcer of toe; Translations: [Non-pressure chronic ulcer of other part of left foot with fat layer exposed] Chronic Diabetes mellitus with complications (20 sources) Type II diabetes mellitus uncontrolled; Translations: [Proliferative diabetic retinopathy] Onset: 1 2014 Chronic Diabetes mellitus without complication (2 sources) Type 2 diabetes mellitus; Translations: [Type 2 diabetes mellitus without complications] Chronic Disorders of lipid metabolism (14 sources) Hyperlipidemia; Translations: [Hyperlipidemia, unspecified] Onset: 3 2014 Chronic Esophageal disorders (14 sources) Gastroesophageal reflux disease; Translations: [Gastro-esophageal reflux disease without esophagitis] Onset: 6 06-12-2015 Chronic Essential hypertension (14 sources) Hypertensive disorder; Translations: [Essential (primary) hypertension] Onset: 3 2014 Chronic Genitourinary symptoms and ill-defined conditions (2 sources) Dysuria; Translations: [Dysuria] Episodic Mood disorders (4 sources) Depressive disorder; Translations: [Major depressive disorder, single episode, unspecified] Onset: 5 Resolved: 5 06-08-2014 Chronic Mycoses (6 sources) Onychomycosis; Translations: [Tinea unguium] Episodic Nutritional deficiencies (14 sources) Vitamin D deficiency; Translations: [Vitamin D deficiency, unspecified] Onset: 3 2014 Chronic Other and ill-defined heart disease (12 sources) Left ventricular diastolic dysfunction ; Translations: [Heart disease, unspecified] Onset: 5 03-19-2021 Chronic Other bone disease and musculoskeletal deformities (7 sources) History of amputation of left lesser toe; Translations: [Acquired absence of other left toe(s)] Episodic Other circulatory disease (1 source) Other specified symptoms and signs involving the circulatory and respiratory systems; Translations: [Diminished pulses in lower extremity] Onset: 4 Episodic Other connective tissue disease (7 sources) Pain of toe of left foot; Translations: [Pain in left toe(s)] Episodic Other connective tissue disease (7 sources) Pain of toe of right foot; Translations: [Pain in right toe(s)] Episodic Other gastrointestinal disorders (2 sources) Irritable bowel syndrome; Translations: [Irritable bowel syndrome without diarrhea] Onset: 5 04-12-2014 Chronic Other hereditary and degenerative nervous system conditions (14 sources) Restless legs; Translations: [Restless legs syndrome] Onset: 3 2014 Chronic Other nervous system disorders (5 sources) Cervical myelopathy; Translations: [Disease of spinal cord, unspecified] Onset: 6 10-06-2015 Chronic Other nutritional; endocrine; and metabolic disorders (4 sources) Overweight; Translations: [Morbid obesity] Onset: 5 10-27-2016 Chronic Other nutritional; endocrine; and metabolic disorders (13 sources) Morbid obesity; Translations: [Morbid (severe) obesity due to excess calories] Onset: 4 03-14-2014 Chronic Other skin disorders (7 sources) Ingrowing nail; Translations: [Ingrowing nail] Episodic Other skin disorders (1 source) Foot callus; Translations: [Corns and callosities] 11-13-2022 Episodic Pulmonary heart disease (12 sources) Chronic pulmonary embolism; Translations: [Chronic pulmonary embolism] Onset: 8 08-10-2018 Chronic Retinal detachments; defects; vascular occlusion; and retinopathy (2 sources) Central retinal vein occlusion, unspecified eye; Translations: [Central retinal vein occlusion, unspecified eye] Onset: 5 06-15-2014 Chronic Spondylosis; intervertebral disc disorders; other back problems (2 sources) Cervical radiculopathy; Translations: [Radiculopathy, cervical region] Onset: 6 10-05-2015 Chronic Thyroid disorders (4 sources) Hypothyroidism; Translations: [Hypothyroidism, unspecified] Onset: 5 Resolved: 5 04-14-2014 Chronic Unclassified (14 sources) Obstructive sleep apnea syndrome; Translations: [Obstructive sleep apnea (adult) (pediatric)] Onset: 4 03-03-2015 Chronic Unclassified (2 sources) Pre-surgery evaluation ; Translations: [Encounter for other preprocedural examination] Onset: 6 07-31-2015 Unclassified (1 source) Congenital malformation of heart, unspecified / Q24.9(ICD-10) Onset: 8 Unclassified (1 source) Atrial septal defect / Q21.1(ICD-10) Onset: 8 Unclassified (1 source) New Patient / [id number]() Onset: 8 Urinary tract infections (1 source) Recurrent urinary tract infection; Translations: [Urinary tract infection, site not specified] Episodic Past or Other Problems Problem Classification Problem Date Documented Da te Episodic/Chronic Abdominal hernia (8 sources) Incisional hernia; Translations: [Incisional hernia without obstruction or gangrene] Onset: 09-07-2012 Resolved: 08-23-2014 12-23-2012 Episodic Abdominal pain (12 sources) Abdominal pain; Translations: [Right upper quadrant pain] Onset: 06-08-2014 Resolved: 02-01-2015 06-08-2014 Episodic Allergic reactions (2 sources) Dermatitis; Translations: [Dermatitis, unspecified] Onset: 08-11-2015 Resolved: 08-14-2015 08-11-2015 Episodic Bacterial infection (4 sources) Methicillin resistant Staphylococcus aureus infection; Translations: [Methicillin resistant Staphylococcus aureus infection, unspecified site] Onset: 06-26-2011 Resolved: 02-01-2015 02-01-2015 Episodic Biliary tract disease (4 sources) Chronic cholecystitis; Translations: [Chronic cholecystitis] Onset: 10-23-2011 Resolved: 08-23-2014 08-23-2014 Episodic Conditions associated with dizziness or vertigo (6 sources) Dysequilibrium syndrome; Translations: [Dizziness and giddiness] Onset: 11-01-2014 Resolved: 02-01-2015 11-07-2015 Episodic Fluid and electrolyte disorders (2 sources) Hypokalemia; Translations: [Hypokalemia] Onset: 04-11-2014 04-11-2014 Episodic Gastritis and duodenitis (4 sources) Gastritis; Translations: [Gastritis, unspecified, without bleeding] Onset: 01-02-2015 Resolved: 02-01-2015 02-01-2015 Episodic Neoplasms of unspecified nature or uncertain behavior (4 sources) Neoplasm of uncertain behavior of skin; Translations: [Neoplasm of uncertain behavior of skin] Onset: 08-08-2009 Resolved: 08-23-2014 08-23-2014 Episodic Other connective tissue disease (8 sources) Pain in right arm; Translations: [Cramp] Onset: 07-22-2014 Resolved: 02-08-2015 02-01-2015 Episodic Other gastrointestinal disorders (2 sources) Drug-induced constipation; Translations: [Other constipation] Onset: 06-12-2015 06-12-2015 Episodic Other non-traumatic joint disorders (10 sources) Knee pain; Translations: [Hip pain] Onset: 2014 Resolved: 02-01-2015 02-01-2015 Episodic Other skin disorders (4 sources) Sebaceous cyst; Translations: [Sebaceous cyst] Onset: 05-29-2011 Resolved: 08-23-2014 05-29-2011 Episodic Other upper respiratory infections (2 sources) Viral upper respiratory tract infection; Translations: [Acute upper respiratory infections of unspecified site] Onset: 05-11-2014 Resolved: 05-13-2014 05-11-2014 Episodic Pneumonia (2 sources) Pneumonia; Translations: [Pneumonia, unspecified organism] Onset: 04-11-2014 Resolved: 04-13-2014 04-12-2014 Episodic Pulmonary heart disease (12 sources) H/O: pulmonary embolus; Translations: [Personal history of pulmonary embolism] Onset: 08-10-2018 08-10-2018 Episodic Spondylosis; intervertebral disc disorders; other back problems (20 sources) Acute low back pain; Translations: [Chronic low back pain] Onset: 2014 Resolved: 03-03-2015 05-08-2014 Episodic Unclassified (4 sources) C-reactive protein abnormal; Translations: [Elevated C-reactive protein (CRP)] Onset: 2014 Resolved: 02-01-2015 02-01-2015 Episodic Unclassified (6 sources) Edema of lower extremity; Translations: [Insomnia] Onset: 2014 Resolved: 02-01-2015 2014 Episodic Unclassified (2 sources) Screening for osteoporosis ; Translations: [Other specified health status] Onset: 11-01-2014 Resolved: 11-04-2014 11-01-2014 Unclassified (1 source) New Patient; Translations: [New Patient] Onset: 10-14-2017 Results Test Name Value Interpretation Reference Range Facil ity Vital Signs Date Time Vital Sign Value Performing Clinician Facility 07-22-2022 15:03-0400 Body temperature 98.29 [degF] Osiel RAVI Work Phone: [facility] 07-22-2022 15:03-0400 Body weight 124.1 kg Osiel RAVI Work Phone: [facility] 07-22-2022 15:03-0400 Diastolic blood pressure 82 mm[Hg] Osiel Reynosogg PA Work Phone: [facility] 07-22-2022 15:03-0400 Heart rate 69 /min Krislyn Aberegg PA Work Phone: [facility] 07-22-2022 15:03-0400 Respiratory rate 26 /min Krislyn Aberegg PA Work Phone: [facility] 07-22-2022 15:03-0400 SaO2% (BldA) [Mass fraction] 94 % Krislyn Aberegg PA Work Phone: [facility] 07-22-2022 15:03-0400 Systolic blood pressure 140 mm[Hg] Krislyn Aberegg PA Work Phone: [facility] 01-18-2022 14:47-0400 Body temperature 98.4 [degF] Heather Owens JAVA J2EE SOFTWARE ENGINEER.MED DIR Work Phone: [facility] 01-18-2022 14:47-0400 Body weight 115.67 kg Heather Owens JAVA J2EE SOFTWARE ENGINEER.MED DIR Work Phone: [facility] 01-18-2022 14:47-0400 Diastolic blood pressure 72 mm[Hg] Heather Owens JAVA J2EE SOFTWARE ENGINEER.MED DIR Work Phone: [facility] 01-18-2022 14:47-0400 Heart rate 68 /min Heather Owens JAVA J2EE SOFTWARE ENGINEER.MED DIR Work Phone: [facility] 01-18-2022 14:47-0400 Respiratory rate 18 /min Heather Owens JAVA J2EE SOFTWARE ENGINEER.MED DIR Work Phone: [facility] 01-18-2022 14:47-0400 SaO2% (BldA) [Mass fraction] 97 % Heather Owens JAVA J2EE SOFTWARE ENGINEER.MED DIR Work Phone: [facility] 01-18-2022 14:47-0400 Systolic blood pressure 136 mm[Hg] Heather Owens JAVA J2EE SOFTWARE ENGINEER.MED DIR Work Phone: [facility] 01-14-2017 09:10-0400 BMI (Body Mass Index) 41.32 kg/m2 Eden Escalante LPN [facility] Work Phone: 01-14-2017 09:10-0400 BP Diastolic 68 mm[Hg] Eden Escalante LPN [facility] Work Phone: 01-14-2017 09:10-0400 BP Systolic 138 mm[Hg] Eden Escalante LPN [facility] Work Phone: 01-14-2017 09:10-0400 Height 161.29 cm Eden Escalante LPN [facility] Work Phone: 01-14-2017 09:10-0400 Pulse (Heart Rate) 68 /min Eden Escalante LPN [facility] Work Phone: 01-14-2017 09:10-0400 Respiratory Rate 20 /min Eden Escalante LPN [facility] Work Phone: 01-14-2017 09:10-0400 Weight 107.5 kg Eden Escalante LPN [facility] Work Phone: 10-16-2016 09:26-0400 Body Temperature 98.7 [degF] Eden Boris [facility] Work Phone: 10-16-2016 09:26-0400 BP Diastolic 80 mm[Hg] Eden Escalante LPN [facility] Work Phone: 10-16-2016 09:26-0400 BP Systolic 140 mm[Hg] Eden Escalante LPN [facility] Work Phone: 11-07-2015 09:33-0400 BSA (Body Surface Area) 2.05 m2 Eden Escalante LPN [facility] Work Phone: Encounters Encounter Date Encounter Type Care Provider Facility Start: 04-11-2023 End: 04-11-2023 ambulatory [facility] Facility:[facility] Start: 04-11-2023 End: 04-11-2023 ambulatory [facility] Facility:[facility] Start: 04-03-2023 End: 04-03-2023 [facility] Start: 01-01-2023 End: 01-01-2023 ambulatory [facility] Facility:[facility] Start: 01-01-2023 End: 01-01-2023 Patient encounter procedure Mercedes Byrnes Work Phone: Podiatry Procedures Date Procedure Procedure Detail Performing Clinician Start: 07-22-2022 Urnls dip stick/tabl et rgnt auto w/o microscopy Valeri Lizama PA-C Work Phone: Start: 01-18-2022 Gluc bld gluc mntr d ev cleared fda spec home use [facility] Provider Start: 01-18-2022 Urnls dip stick/tabl et rgnt auto w/o microscopy Heather Owens JAVA J2EE SOFTWARE ENGINEER.NIKUNJ Work Phone: Start: 08-10-2018 Antibody screen Plan of Treatment Date Care Activity Detail Author Start: 08-30-2023 3 comp foot exam completed DIABETIC FOOT EXAM [facility] Start: 11-22-2022 Covid-19 Vaccine ( season) Covid-19 Vaccine ( season) [facility] Start: 11-22-2022 Influenza vaccination [facility] Start: 08-01-2022 3 comp foot exam completed DIABETIC FOOT EXAM [facility] Start: 03-24-2022 ADVANCE DIRECTIVE DISCUSSION ADVANCE DIRECTIVE DISCUSSION [facility] Start: 03-24-2022 DEPRESSION ASSESSMENT DEPRESSION ASS ESSMENT [facility] Start: 01-18-2022 End: 03-20-2022 Bacteria identified in Urine by Culture [facility] Work Phone: Immunizations Immunization Date Immunization Notes Care Provider Tiffani melgar 12-31-2021 influenza virus vacc ine, unspecified formulation Mercedes Byrnes Work Phone: [facility] 01-23-2008 pneumococcal polysaccharide vaccine, 23 valent [facility] Provider [facility] Work Phone: Payers Date Payer Category Payer Medicare HU[employer] MEDICARE HU[employer]NA GOLD PLUS [id number] 2020-Present [phone] [address] [address] [place] [address] O [id number] 2020 Medicare HUMANA MEDICARE HU[employer]NA GOLD PLUS [id number] 2020-Present [phone] [address] [address] [place] [address] O [id number] 2020 Private Health Insurance [id number] 2016 Unknown [id number] Social History Date Type Detail Facility Start: 08-02-2014 End: 01-18-2022 Tobacco smoking status NHIS Ex-smoker [facility] Start: 1978 End: 1985 History of tobacco use Current smoker [facility] Start: 1978 End: 1985 History of tobacco use Cigarette Smoker [facility] Start: 09-06-2020 End: 01-01-2023 Alcohol intake Current drinker of alcohol (finding) [facility] Start: 05-21-2010 History SDOH Alcohol Comment Occasional [facility] Start: 06-10-2014 Tobacco Comment smoked sociall y-on the weekends 1-2 [facility] Start: 1950 Sex Assigned At Not on file C [facility] Start: 08-02-2014 End: 08-28-2022 Cigarettes smoked current (pack per day) - Reported 0.1 [facility] Start: 08-02-2014 End: 01-18-2022 Tobacco use and exposure Smokeless tobacco non-user [facility] Work Phone: Start: 11-04-2021 End: 02-20-2022 Exposure to SARS-CoV-2 (event) Not sure [facility] Start: 01-18-2022 Tobacco Comment Smoked sociall y, on the weekends 1-2. Parents smoked in childhood home. Ex-spouse was a smoker. [facility] Start: 07-22-2022 End: 08-28-2022 Tobacco use panel [facility] National Score (1-10 0), lower number is lower risk 99 [facility] Medical Equipment Procedure Code Equipment Code Equipment Origin al Text Equipment Identifier Dates Apply 1 applicat ion to affected area once daily. Start: 10-17-2017 Clinical Notes 06-28-2015 to 04-14-2023 Mercedes Byrnes - 01/01/2023 1:28 PM EDTSmitCheyenne cunha LPN - 01/01/2023 1:19 PM EDTPatient InstructionsPatient InstructionsMercedes Byrnes - 11/13/2022 2:57 PM EDT Note Date & Type Note Facility 04-14-2023 Note HNO ID: [id number] Author: MERCEDES BYRNES, ? Service: ? Author Type: Physician Type: Progress Notes Filed: 04/14/2023 12:44 Note Text: FOLLOW UP PODIATRIC OFFICE VISIT Chief Complaint: This 73 year old who presents for follow up:let 2nd toe ulceration Patient presents to clinic for follow-up left 2nd toe ulceration Patient is using hammertoe crest pad Is scheduled to have pvr done today Feels ulceration is healed to left 2nd toe. PAIN EVALUATION No data found in the last 1 encounters. Hemoglobin A1C Date Value Ref Range Status 01/21/2019 7.8 (H) 4.3 - 6.0 % Final PCP: Frederick Cervantes DO PAST MEDICAL HISTORY Diagnosis Date Diastolic dysfunction, left ventricle 07/28/2014 06/13/2014 echocardiogram. Essential hypertension, benign Hallux valgus (acquired) 12/20/2010 Menopause SHANNON (obstructive sleep apnea) 08/01/14 Severe. 08/01/14 [facility] PSG with AHI 29.4-30.5. Corrected with 16 cm CPA with humidification. Poor balance 03/03/2013 Post-menopausal 09/09/2011 Sciatica of left side 03/14/2014 Due to lumbar spondylosis/stenosis. Type II or unspecified type diabetes mellitus without mention of complication, not stated as uncontrolled Unspecified asthma(493.90) Current Outpatient Medications Medication Sig meloxicam (MOBIC ORAL) Take by mouth. nystatin-triamcinolone (MYCOLOG) ointment Apply sparingly to perineum twice daily for irritation/infection. metoprolol succinate ER (TOPROL XL) 100 mg Take 100 mg by mouth once daily. DULoxetine (CYMBALTA) 20 mg capsule Take 20 mg by mouth once daily. citalopram (CELEXA) 20 mg tablet Take 40 mg by mouth. Gauze Bandage ([place] PACKING STRIP) 1/4 X 5 -yard bndg Apply 1 application to affected area once daily. insulin 70/30 NPH/regular units/mL (NOVOLIN 70/30) 50 units sc at breakfast, 55 units at lunch, 82 units at supper. (Patient taking differently: 70/90 units depending on sugars) oxyCODONE-acetaminophen (PERCOCET 10) 10-325 mg tablet Take 1 tablet by mouth as needed. potassium chloride ER (K-DUR, KLOR-CON) 20 mEq tablet Take 1 tablet by mouth once daily. losartan (COZAAR) 100 mg tablet Take 1 tablet by mouth once daily. gabapentin (NEURONTIN) 800 mg tablet Take 1 tablet by mouth four times daily. insulin needles, DISPOSABLE, (PEN NEEDLE) 31 X 5/16 Misc Ndle use as directed ASPIRIN 81 MG TAB Take one (1) tablet daily . REQUIP 4 MG TAB Take 1 tablet at bedtime as needed No current facility-administered medications for this visit. ALLERGIES Allergen Reactions Ambien [Zolpidem Ta* Other: See Comments Sleep walking Cats Itching, Shortness of Breath, Other: See Comments Stuffy nose, itching in mouth Codeine Itching Dogs Itching, Shortness of Breath, Other: See Comments Stuffy nose, itching in mouth Latex Rash, Itching Pravastatin Myalgia Seasonal Allergies Itching, Other: See Comments Runny nose/eyes, sneezing PAST SURGICAL HISTORY Procedure Laterality Date APPENDECTOMY 2004 Dr. Cox COLONOSCOPY FLX DX W/COLLJ SPEC WHEN PFRMD Colonoscopy EPIDURAL for back pain HERNIA REPAIR W/MESH 04/2013 LAPAROSCOPY SURG CHOLECYSTECTOMY 10/07/11 Cholecystectomy, lap Dr. Cline PAST SURGICAL HISTORY OF nose surgery Physical Exam: OBJECTIVE: Constitutional: Pt is a well developed 73 year old female who is alert, oriented, cooperative and in no apparent distress. Eyes: Following during examination. No redness or drainage. Respiratory: RR normal and nonlabored. Even breathing. No evidence of distress. Psychology: Patient is engaged during conversation. Normal affect and mood. Does not appear depressed or anxious. NVSI unchanged from previous visit. Dermatological: Ulceration of left 2nd toe is now healed without infection There is callus to tip of left 2nd toe Musculoskeletal/Orthopaedic: Patient has mild pain to palpation of left foot Large bunion is present to left foot. There is semi-reducible hammertoe of left 2nd toe. Amputation of left 4th toe ASSESSMENT: (M20.42) Hammertoe of left foot (primary encounter diagnosis) (L84) Callus of foot (Z89.422) History of amputation of lesser toe of left foot (HCC) (E08.42) Diabetic polyneuropathy associated with diabetes mellitus due to underlying condition (HCC) PLAN: Discussed ongoing callus vs ulceraiton of left 2nd toe. She has hammertoe and this toe does place her at risk of recurrent sores. Recurrent sores could lead to infection and/or amputation. Options for the hammertoe include continued use of padding and periodic debridement of callus vs trying flexor tenotomy vs partial toe amputation vs reconstruction Patient open to tenotomy pending the results of pvr that are scheduled for later today. Callus was reduced with dremmel. Will call with results of pvr Can f/u in 2 weeks or sooner if problems arise Mercedes Byrnes DPM [facility] 04-11-2023 Note HNO ID: [id number] Author: CHEYENNE SÁNCHEZ LPN Service: ? Author Type: LICENSED NURSE Type: Progress Notes Filed: 04/14/2023 12:44 Note Text: AMB ROOMING INTAKE FLOWSHEET DATA Patient presents with: Left Foot - Established Patient, Numbness Right Foot - Established Patient, Numbness Cheyenne Sánchez LPN [facility] 04-03-2023 Note HNO ID: [id number] Author: STEPHANIE SEGURA RT(Agata) Service: Radiology Author Type: Technologist Type: Progress Notes Filed: 04/03/2023 14:40 Note Text: Radiology Service Progress Note PATIENT NAME: Wilda White DATE OF SERVICE: April 03, 2023 TIME: 2:20 PM PATIENT IDENTITY VERIFICATION COMPLETED USING TWO (2) IDENTIFIERS: Name and Date of confirmed by patient verbally. FALL SCREENING: Has the patient had 2 falls in the last year or 1 fall with injury or currently using an Ambulatory Assistive Device (Walker, Cane, Wheelchair, Crutches, etc.)? Yes, Patient High Risk for Falls What interventions were put in place to prevent falls during this visit? done on table PATIENT GENDER DATA: Female. status: : No status: NO. PATIENT RELEVANT IMPLANT DATA REVIEWED: Not Applicable RADIOLOGY DEPARTMENT: General X-ray: Exam(s) Completed: Lower Extremity X-Ray(s): Foot, Left and Toes, Left PERIPHERAL IV DATA: Not applicable SIGNED BY: RT Richard(R) April 03, 2023 2:20 PM [facility] 04-03-2023 Note HNO ID: [id number] Author: MERCEDES BYRNES, ? Service: ? Author Type: Physician Type: Progress Notes Filed: 04/04/2023 21:30 Note Text: Last time saw pcp: 02/24/23 Subjective: Patient presents to clinic c/o painful toenails. They state that the nails are especially painful with shoe gear and pressure. Patient states that nails left 2nd toenail are painful. Patient admits to being diabetic. No other pedal complaints at this time. Patient states no change in medications or medical history since last visit. Objective: Patient presents to clinic ambulating in sneakers Vasc: DP and PT pulses are faintly palpable bilateral. CFT is less than 5 seconds bilateral. Skin temperature is warm to cool proximal to distal bilateral. There is moderate edema or varicosities noted. Neuro: Protective sensation is decreased to the foot and toes when tested with the 5.07 SWM bilateral. Vibratory sensation is absent at the hallux IPJ bilateral. The hallux is downgoing bilateral. Derm: Nails 1-5 b/l are painful, discolored-yellow, thick, crumbly, dystrophic and with subungal debris. Skin is of normal turgor, texture and hair growth is decreased bilateral. There are callus to distal tuft of left 2nd toe. Preulcerative lesion to distal tuft of left 2nd toe. No deep ulcerations, scars, verruca or other lesions noted. Ortho: Muscle strength is 5/5 for all pedal groups tested. Ankle joint DF is decreased with the knee extended with no pain or crepitus noted. 1st MPJ ROM is decreased bilateral. Semi-reducible hammertoe of left 2nd toe. Semi-reducible hammertoe of left 3rd and 4th toe. Assessment: (L60.0) Onychocryptosis (primary encounter diagnosis) Callus (M79.675) Pain in toe of left foot (M79.674) Pain in toe of right foot (Z89.422) History of amputation of lesser toe of left foot (HCC) (E08.41) Diabetic mononeuropathy associated with diabetes mellitus due to underlying condition (HCC) (M20.42) Hammertoe of left foot (R09.89) Diminished pulses in lower extremity Plan: Patient was seen and evaluated. Nails 1-5 right and 1-3,5 left were debrided in length and thickness. Pre-ulcerative callus reduced with tissue nippers and dremmel. Informed patient that the pre-ulcerative callus of left 2nd toe is due to hammertoe. Options for this hammertoe being that it is semi-reducible would be to contineu with hammertoe padding vs trying flexor tenotomy. Tenotomy alone may help to reduce some contracture but complete contracture would be by way of hammertoe correction, ie fusion. Patient may consider tenotomy of left 2nd toe. She would elect to monitor the left 3rd and left 4th toe. Would recommend pvr prior to any planned tenotomy. Patient was instructed on the continued importance of diabetic foot care along with proper diet and keeping their blood sugar under control to prevent complications. Patient is to RTC in 2 weeks. Mercedes Byrnes DPM [facility] 04-03-2023 Note HNO ID: [id number] Author: CHEYENNE SÁNCHEZ LPN Service: ? Author Type: LICENSED NURSE Type: Progress Notes Filed: 04/04/2023 21:30 Note Text: AMB ROOMING INTAKE FLOWSHEET DATA Pain Pain Level: 8 Pain Location: Toe Description: Sore Duration Units: Years Frequency: Continuous Intervention/Comfort measure: Reposition, Relaxation Patient presents with: Left Foot - Established Patient, Diabetic Foot Care, Pain Right Foot - Established Patient, Diabetic Foot Care, Pain Cheyenne Sánchez LPN [facility] 01-01-2023 Note HNO ID: [id number] Author: Mercedes Byrnes Service: ? Author Type: Physician Type: Progress Notes Filed: 01/01/2023 11:07 PM Note Text: Last seen by pcp: 11/14/22 Subjective: Patient presents to clinic c/o painful toenails. They state that the nails are especially painful with shoe gear and pressure. Patient also has callus of left 2nd toe distal tuft. Patient admits to being diabetic. No other pedal complaints at this time. Patient states no change in medications or medical history since last visit. Objective: Patient presents to clinic ambulating in diabetic shoes Vasc: DP and PT pulses are palpable bilateral. CFT is less than 5 seconds bilateral. Skin temperature is warm to cool proximal to distal bilateral. There is moderate edema or varicosities noted. Neuro: Protective sensation is decreased to the foot and toes when tested with the 5.07 SWM bilateral. Vibratory sensation is absent at the hallux IPJ bilateral. The hallux is downgoing bilateral. Derm: Nails 1-5 right and 1-3,5 left are discolored-yellow, thick, crumbly, dystrophic and with subungal debris. Skin is of normal turgor, texture and hair growth is decreased bilateral. There are callus to left 2nd toe. no ulcerations, scars, verruca or other lesions noted. Ortho: Muscle strength is 5/5 for all pedal groups tested. Ankle joint DF is decreased with the knee extended with no pain or crepitus noted. 1st MPJ ROM is decreased bilateral. There is amputation of left 4th toe. There is semi-reducible contracture of left 2nd toe. Lesser contracture but more rigidity to left 3rd and left 5th toe Assessment: (L60.0) Onychocryptosis (primary encounter diagnosis) (M79.675) Pain in toe of left foot (M79.674) Pain in toe of right foot (Z89.422) History of amputation of lesser toe of left foot ([facility]) (E08.41) Diabetic mononeuropathy associated with diabetes mellitus due to underlying condition ([facility]) Callus hammertoe Plan: Patient was seen and evaluated. Nails 1-5 right and 1-3,5 debrided in length and thickness. Q7 modifier Callus reduced to left 2nd toe with dremmel. Discussed this as a pre-ulcerative callus that if this develops into a wound, may risk amputation. Could consider a flexor tenotomy. Flexor tenotomy may allow some contracture but cannot guarantee compete reduction of deformity. Other option is to continue with hammertoe padding and diabetic shoe. Patient was instructed on the continued importance of diabetic foot care along with proper diet and keeping their blood sugar under control to prevent complications. Patient is to RTC in 3-4 months. Mercedes Byrnes DPM [facility] 01-01-2023 Note HNO ID: [id number] Author: Cheyenne Sánchez LPN Service: ? Author Type: LICENSED NURSE Type: Progress Notes Filed: 01/01/2023 11:07 PM Note Text: AMB ROOMING INTAKE FLOWSHEET DATA Patient presents with: Left Foot - Established Patient, Diabetic Foot Care Right Foot - Established Patient, Diabetic Foot Care Cheyenne Sánchez LPN [facility] 01-01-2023 History of Presen t illness Narrative Last seen by pcp: 11/14/22 Subjective: Patient presents to clinic c/o painful toenails. They state that the nails are especially painful with shoe gear and pressure. Patient also has callus of left 2nd toe distal tuft. Patient admits to being diabetic. No other pedal complaints at this time. Patient states no change in medications or medical history since last visit. Objective: Patient presents to clinic ambulating in diabetic shoes Vasc: DP and PT pulses are palpable bilateral. CFT is less than 5 seconds bilateral. Skin temperature is warm to cool proximal to distal bilateral. There is moderate edema or varicosities noted. Neuro: Protective sensation is decreased to the foot and toes when tested with the 5.07 SWM bilateral. Vibratory sensation is absent at the hallux IPJ bilateral. The hallux is downgoing bilateral. Derm: Nails 1-5 right and 1-3,5 left are discolored-yellow, thick, crumbly, dystrophic and with subungal debris. Skin is of normal turgor, texture and hair growth is decreased bilateral. There are callus to left 2nd toe. no ulcerations, scars, verruca or other lesions noted. Ortho: Muscle strength is 5/5 for all pedal groups tested. Ankle joint DF is decreased with the knee extended with no pain or crepitus noted. 1st MPJ ROM is decreased bilateral. There is amputation of left 4th toe. There is semi-reducible contracture of left 2nd toe. Lesser contracture but more rigidity to left 3rd and left 5th toe Assessment: (L60.0) Onychocryptosis (primary encounter diagnosis) (M79.675) Pain in toe of left foot (M79.674) Pain in toe of right foot (Z89.422) History of amputation of lesser toe of left foot (HCC) (E08.41) Diabetic mononeuropathy associated with diabetes mellitus due to underlying condition (HCC) Callus hammertoe Plan: Patient was seen and evaluated. Nails 1-5 right and 1-3,5 debrided in length and thickness. Q7 modifier Callus reduced to left 2nd toe with dremmel. Discussed this as a pre-ulcerative callus that if this develops into a wound, may risk amputation. Could consider a flexor tenotomy. Flexor tenotomy may allow some contracture but cannot guarantee compete reduction of deformity. Other option is to continue with hammertoe padding and diabetic shoe. Patient was instructed on the continued importance of diabetic foot care along with proper diet and keeping their blood sugar under control to prevent complications. Patient is to RTC in 3-4 months. Mercedes Byrnes DPM AMB ROOMING INTAKE FLOWSHEET DATA Patient presents with: Left Foot - Established Patient, Diabetic Foot Care Right Foot - Established Patient, Diabetic Foot Care Cheyenne Sánchez LPN documented in this encounter [facility] 01-01-2023 Instructions Mercedes Byrnes - 01/01/2023 1:28 PM EDT Diabetes Foot Care Instructions When you have diabetes, proper foot care is very important. Poor foot care may lead to amputation of a foot or leg. As a person with diabetes, you are more vulnerable to foot problems, because diabetes can damage your nerves and reduce blood flow to your feet. Here are some diabetes foot care tips to follow: Wash and Dry Your Feet Daily Use mild soaps Use warm water Pat your skin dry; do not rub. Thoroughly dry your feet. After washing, use lotion on your feet to prevent cracking. Do not put lotion between your toes. Examine Your Feet Each Day Check the tops and bottoms of your feet. Have someone else look at your feet if you cannot see them. Check for dry, cracked skin. Look for blisters, cuts, scratches, or other sores. Check for redness, increased warmth, or tenderness when touching any area of your feet. Check for ingrown toenails, corns, and calluses. If you get a blister or sore from your shoes, do not pop it. Apply a bandage and wear a different pair of shoes. Take Care of Your Toenails Cut toenails after bathing, when they are soft. Cut toenails straight across and smooth with a nail file. Avoid cutting into the corners of toes. Do not cut cuticles. If you have neuropathy (or decreased sensation in your feet) a or manager should always cut your toenails. Be Careful When Exercising Walk and exercise in comfortable shoes. Do not exercise when you have open sores on your feet. Protect Your Feet With Shoes and Socks Never go barefoot. Always protect your feet by wearing shoes or hard-soled slippers or footwear. Avoid shoes with high heels and pointed toes. Avoid shoes that expose your toes or heels (such as open-toed shoes or sandals). These types of shoes increase your risk for injury and potential infections. Try on new footwear with the type of socks you usually wear. Do not wear new shoes for more than an hour at a time. Change your socks daily. Look and feel inside your shoes before putting them on to make sure there are no foreign objects or rough areas. Avoid tight socks. Wear natural-fiber socks (cotton, wool, or a cotton-wool blend). Wear special shoes if your health care provider recommends them. Wear shoes/boots that will protect your feet from various weather conditions (cold, moisture, etc.). Make sure your shoes fit properly. If you have neuropathy (nerve damage), you may not notice that your shoes are too tight. Perform the footwear test described below. Footwear Test Use this simple test to see if your shoes fit correctly: Stand on a piece of paper. (Make sure you are standing and not sitting, because your foot changes shape when you stand.) Trace the outline of your foot. Trace the outline of your shoe. Compare the tracings: Is the shoe too narrow? Is your foot crammed into the shoe? The shoe should be at least 1/2 inch longer than your longest toe and as wide as your foot. Proper Shoe Choices The following types of shoes are best for people with diabetes Closed toes and heels Leather uppers without a seam inside At least 1/2 inch extra space at the end of your longest toe Inside of shoe should be soft with no rough areas Outer sole should be made of stiff material Shoes should be at least as wide as your feet Tips for Foot Care in Diabetes Don't wait to treat a minor foot problem if you have diabetes. Follow your health care provider's guidelines and first aid guidelines. Report foot injuries and infections to your health care provider immediately. Check water temperature with your elbow, not your foot. Do not use a heating pad on your feet. Do not cross your legs. Do not self-treat your corns, calluses, or other foot problems. Go to your health care provider or or manager to treat these conditions. documented in this encounter [facility] 11-13-2022 Note HNO ID: [id number] Author: Stephanie Segura RT(R) Service: Radiology Author Type: Technologist Type: Progress Notes Filed: 11/13/2022 3:40 PM Note Text: Radiology Service Progress Note PATIENT NAME: Wilda White DATE OF SERVICE: November 13, 2022 TIME: 3:27 PM PATIENT IDENTITY VERIFICATION COMPLETED USING TWO (2) IDENTIFIERS: Name and Date of confirmed by patient verbally. FALL SCREENING: Has the patient had 2 falls in the last year or 1 fall with injury or currently using an Ambulatory Assistive Device (Walker, Cane, Wheelchair, Crutches, etc.)? Yes, Patient High Risk for Falls What interventions were put in place to prevent falls during this visit? Offered Assistance with Transfers/Clothing and Instructed Patient to Remain Seated (Not on Exam Table) Until Exam PATIENT GENDER DATA: Female. status: : No status: NO. PATIENT RELEVANT IMPLANT DATA REVIEWED: Not Applicable RADIOLOGY DEPARTMENT: General X-ray: Exam(s) Completed: Lower Extremity X-Ray(s): Foot, Right PERIPHERAL IV DATA: Not applicable SIGNED BY: Stephanie Segura, RT(R) November 13, 2022 3:27 PM [facility] 11-13-2022 Note HNO ID: [id number] Author: Mercedes Byrnes Service: ? Author Type: Physician Type: Progress Notes Filed: 11/13/2022 11:14 PM Note Text: Last saw pcp: 10/23/22 Subjective: This 72 year old female presents to clinic for diabetic foot check. Patient has the following complaints: painful 2nd toenail of left foot. Patient admits to being diabetic for 20+ years. Patient +B/T/N in feet at this time. Patient -pain in legs when walking. No other pedal complaints at this time. No change in medications or medical history since last visit. PAIN EVALUATION No data found in the last 1 encounters. Hemoglobin A1C (%) Date Value 01/21/2019 7.8 12/10/2018 8.2 12/07/2018 8.3 10/29/2018 8.8 08/10/2018 7.4 PCP: Frederick Cervantes DO PAST MEDICAL HISTORY Diagnosis Date Diastolic dysfunction, left ventricle 07/28/2014 06/13/2014 echocardiogram. Essential hypertension, benign Hallux valgus (acquired) 12/20/2010 Menopause SHANNON (obstructive sleep apnea) 08/01/14 Severe. 08/01/14 [facility] PSG with AHI 29.4-30.5. Corrected with 16 cm CPA with humidification. Poor balance 03/03/2013 Post-menopausal 09/09/2011 Sciatica of left side 03/14/2014 Due to lumbar spondylosis/stenosis. Type II or unspecified type diabetes mellitus without mention of complication, not stated as uncontrolled Unspecified asthma(493.90) Current Outpatient Medications Medication Sig nystatin-triamcinolone (MYCOLOG) ointment Apply sparingly to perineum twice daily for irritation/infection. metoprolol succinate ER (TOPROL XL) 100 mg Take 100 mg by mouth once daily. DULoxetine (CYMBALTA) 20 mg capsule Take 20 mg by mouth once daily. citalopram (CELEXA) 20 mg tablet Take 40 mg by mouth. Gauze Bandage ([employer] PACK[employer] STRIP) 1/4 X 5 -yard bndg Apply 1 application to affected area once daily. insulin 70/30 NPH/regular units/mL (NOVOLIN 70/30) 50 units sc at breakfast, 55 units at lunch, 82 units at supper. (Patient taking differently: 70/90 units depending on sugars) oxyCODONE-acetaminophen (PERCOCET 10) 10-325 mg tablet Take 1 tablet by mouth as needed. potassium chloride ER (K-DUR, KLOR-CON) 20 mEq tablet Take 1 tablet by mouth once daily. losartan (COZAAR) 100 mg tablet Take 1 tablet by mouth once daily. gabapentin (NEURONTIN) 800 mg tablet Take 1 tablet by mouth four times daily. insulin needles, DISPOSABLE, (PEN NEEDLE) 31 X 08/06 Misc Ndle use as directed ASPIRIN 81 MG TAB Take one (1) tablet daily . REQUIP 4 MG TAB Take 1 tablet at bedtime as needed No current facility-administered medications for this visit. ALLERGIES Allergen Reactions Ambien [Zolpidem Ta* Other: See Comments Sleep walking Cats Itching, Shortness of Breath, Other: See Comments Stuffy nose, itching in mouth Codeine Itching Dogs Itching, Shortness of Breath, Other: See Comments Stuffy nose, itching in mouth Latex Rash, Itching Pravastatin Myalgia Seasonal Allergies Itching, Other: See Comments Runny nose/eyes, sneezing PAST SURGICAL HISTORY Procedure Laterality Date APPENDECTOMY 2004 Dr. Cox COLONOSCOPY FLX DX W/COLLJ SPEC WHEN PFRMD Colonoscopy EPIDURAL for back pain HERNIA REPAIR W/MESH 04/2013 LAPAROSCOPY SURG CHOLECYSTECTOMY 10/07/11 Cholecystectomy, lap Dr. Cline PAST SURGICAL HISTORY OF nose surgery FAMILY HISTORY Problem Relation Age of Onset Diabetes Mother Hypertension Mother Glaucoma Mother Detached Retina Sister Diabetes Sister Hypertension Brother Social History Tobacco Use Smoking status: Former Packs/day: 0.10 Years: 8.00 Additional pack years: 0.00 Total pack years: 0.80 Types: Cigarettes Start date: 1978 Quit date: 1985 Years since quittin.6 Smokeless tobacco: Never Tobacco comments: Smoked socially, on the weekends 1-2. Parents smoked in childhood home. Ex-spouse was a smoker. Vaping Use Vaping Use: Never used Substance Use Topics Alcohol use: Yes Comment: Occasional. Drug use: No REVIEW OF SYSTEMS GENERAL: Negative for Malaise, significant weight loss, fever RESPIRATORY: Negative for cough, wheezing and shortness of breath CARDIOVASCULAR: Negative for chest pain, leg swelling and palpitations GI: Negative for abdominal discomfort, blood in stools or black stools and change in bowel habits : Negative for dysuria, frequency and incontinence MUSCULOSKELETAL: Negative for joint pain or swelling, back pain, and muscle pain. SKIN: Negative for lesions, rash, and itching. HEMATOLOGY/LYMPHOLOGY Negative for prolonged bleeding, bruising easily, and swollen nodes. ENDOCRINE: Negative for cold or heat intolerance, polyuria, polydipsia and goiter. NEURO: negative The remainder of the review of systems is noncontributory. Objective: Patient presents to clinic ambulating in diabetic shoes Constitutional: Pt is a well developed 72 year old female who is alert, oriented, cooperative and in no apparent distress. (more content not included)... [facility] 11-13-2022 Note HNO ID: [id number] Author: Cheyenne Sánchez LPN Service: ? Author Type: LICENSED NURSE Type: Progress Notes Filed: 11/13/2022 11:14 PM Note Text: AMB ROOMING INTAKE FLOWSHEET DATA Patient presents with: Left Foot - New, Foot Deformity Right Foot - New, Foot Deformity Cheyenne Sánchez LPN [facility] 11-13-2022 Instructions Mercedes Byrnes - 11/13/2022 3:11 PM EDT Diabetes Foot Care Instructions When you have diabetes, proper foot care is very important. Poor foot care may lead to amputation of a foot or leg. As a person with diabetes, you are more vulnerable to foot problems, because diabetes can damage your nerves and reduce blood flow to your feet. Here are some diabetes foot care tips to follow: Wash and Dry Your Feet Daily Use mild soaps Use warm water Pat your skin dry; do not rub. Thoroughly dry your feet. After washing, use lotion on your feet to prevent cracking. Do not put lotion between your toes. Examine Your Feet Each Day Check the tops and bottoms of your feet. Have someone else look at your feet if you cannot see them. Check for dry, cracked skin. Look for blisters, cuts, scratches, or other sores. Check for redness, increased warmth, or tenderness when touching any area of your feet. Check for ingrown toenails, corns, and calluses. If you get a blister or sore from your shoes, do not pop it. Apply a bandage and wear a different pair of shoes. Take Care of Your Toenails Cut toenails after bathing, when they are soft. Cut toenails straight across and smooth with a nail file. Avoid cutting into the corners of toes. Do not cut cuticles. If you have neuropathy (or decreased sensation in your feet) a or manager should always cut your toenails. Be Careful When Exercising Walk and exercise in comfortable shoes. Do not exercise when you have open sores on your feet. Protect Your Feet With Shoes and Socks Never go barefoot. Always protect your feet by wearing shoes or hard-soled slippers or footwear. Avoid shoes with high heels and pointed toes. Avoid shoes that expose your toes or heels (such as open-toed shoes or sandals). These types of shoes increase your risk for injury and potential infections. Try on new footwear with the type of socks you usually wear. Do not wear new shoes for more than an hour at a time. Change your socks daily. Look and feel inside your shoes before putting them on to make sure there are no foreign objects or rough areas. Avoid tight socks. Wear natural-fiber socks (cotton, wool, or a cotton-wool blend). Wear special shoes if your health care provider recommends them. Wear shoes/boots that will protect your feet from various weather conditions (cold, moisture, etc.). Make sure your shoes fit properly. If you have neuropathy (nerve damage), you may not notice that your shoes are too tight. Perform the footwear test described below. Footwear Test Use this simple test to see if your shoes fit correctly: Stand on a piece of paper. (Make sure you are standing and not sitting, because your foot changes shape when you stand.) Trace the outline of your foot. Trace the outline of your shoe. Compare the tracings: Is the shoe too narrow? Is your foot crammed into the shoe? The shoe should be at least 1/2 inch longer than your longest toe and as wide as your foot. Proper Shoe Choices The following types of shoes are best for people with diabetes Closed toes and heels Leather uppers without a seam inside At least 1/2 inch extra space at the end of your longest toe Inside of shoe should be soft with no rough areas Outer sole should be made of stiff material Shoes should be at least as wide as your feet Tips for Foot Care in Diabetes Don't wait to treat a minor foot problem if you have diabetes. Follow your health care provider's guidelines and first aid guidelines. Report foot injuries and infections to your health care provider immediately. Check water temperature with your elbow, not your foot. Do not use a heating pad on your feet. Do not cross your legs. Do not self-treat your corns, calluses, or other foot problems. Go to your health care provider or or manager to treat these conditions. documented in this encounter [facility] 11-13-2022 History of Presen t illness Narrative Last saw pcp: 10/23/22 Subjective: This 72 year old female presents to clinic for diabetic foot check. Patient has the following complaints: painful 2nd toenail of left foot. Patient admits to being diabetic for 20+ years. Patient +B/T/N in feet at this time. Patient -pain in legs when walking. No other pedal complaints at this time. No change in medications or medical history since last visit. PAIN EVALUATION No data found in the last 1 encounters. Hemoglobin A1C (%) Date Value 01/21/2019 7.8 12/10/2018 8.2 12/07/2018 8.3 10/29/2018 8.8 08/10/2018 7.4 PCP: Frederick Cervantes DO PAST MEDICAL HISTORY Diagnosis Date Diastolic dysfunction, left ventricle 07/28/2014 06/13/2014 echocardiogram. Essential hypertension, benign Hallux valgus (acquired) 12/20/2010 Menopause SHANNON (obstructive sleep apnea) 08/01/14 Severe. 08/01/14 [facility] PSG with AHI 29.4-30.5. Corrected with 16 cm CPA with humidification. Poor balance 03/03/2013 Post-menopausal 09/09/2011 Sciatica of left side 03/14/2014 Due to lumbar spondylosis/stenosis. Type II or unspecified type diabetes mellitus without mention of complication, not stated as uncontrolled Unspecified asthma(493.90) Current Outpatient Medications Medication Sig nystatin-triamcinolone (MYCOLOG) ointment Apply sparingly to perineum twice daily for irritation/infection. metoprolol succinate ER (TOPROL XL) 100 mg Take 100 mg by mouth once daily. DULoxetine (CYMBALTA) 20 mg capsule Take 20 mg by mouth once daily. citalopram (CELEXA) 20 mg tablet Take 40 mg by mouth. Gauze Bandage ([employer] PACKING STRIP) 1/4 X 5 -yard bndg Apply 1 application to affected area once daily. insulin 70/30 NPH/regular units/mL (NOVOLIN 70/30) 50 units sc at breakfast, 55 units at lunch, 82 units at supper. (Patient taking differently: 70/90 units depending on sugars) oxyCODONE-acetaminophen (PERCOCET 10) 10-325 mg tablet Take 1 tablet by mouth as needed. potassium chloride ER (K-DUR, KLOR-CON) 20 mEq tablet Take 1 tablet by mouth once daily. losartan (COZAAR) 100 mg tablet Take 1 tablet by mouth once daily. gabapentin (NEURONTIN) 800 mg tablet Take 1 tablet by mouth four times daily. insulin needles, DISPOSABLE, (PEN NEEDLE) 31 X 5/16 Misc Ndle use as directed ASPIRIN 81 MG TAB Take one (1) tablet daily . REQUIP 4 MG TAB Take 1 tablet at bedtime as needed No current facility-administered medications for this visit. ALLERGIES Allergen Reactions Ambien [Zolpidem Ta* Other: See Comments Sleep walking Cats Itching, Shortness of Breath, Other: See Comments Stuffy nose, itching in mouth Codeine Itching Dogs Itching, Shortness of Breath, Other: See Comments Stuffy nose, itching in mouth Latex Rash, Itching Pravastatin Myalgia Seasonal Allergies Itching, Other: See Comments Runny nose/eyes, sneezing PAST SURGICAL HISTORY Procedure Laterality Date APPENDECTOMY 2004 Dr. Cox COLONOSCOPY FLX DX W/COLLJ SPEC WHEN PFRMD Colonoscopy EPIDURAL for back pain HERNIA REPAIR W/MESH 04/2013 LAPAROSCOPY SURG CHOLECYSTECTOMY 10/07/11 Cholecystectomy, lap Dr. Cline PAST SURGICAL HISTORY OF nose surgery FAMILY HISTORY Problem Relation Age of Onset Diabetes Mother Hypertension Mother Glaucoma Mother Detached Retina Sister Diabetes Sister Hypertension Brother Social History Tobacco Use Smoking status: Former Packs/day: 0.10 Years: 8.00 Additional pack years: 0.00 Total pack years: 0.80 Types: Cigarettes Start date: 1978 Quit date: 1985 Years since quittin.6 Smokeless tobacco: Never Tobacco comments: Smoked socially, on the weekends 1-2. Parents smoked in childhood home. Ex-spouse was a smoker. Vaping Use Vaping Use: Never used Substance Use Topics Alcohol use: Yes Comment: Occasional. Drug use: No REVIEW OF SYSTEMS GENERAL: Negative for Malaise, significant weight loss, fever RESPIRATORY: Negative for cough, wheezing and shortness of breath CARDIOVASCULAR: Negative for chest pain, leg swelling and palpitations GI: Negative for abdominal discomfort, blood in stools or black stools and change in bowel habits : Negative for dysuria, frequency and incontinence MUSCULOSKELETAL: Negative for joint pain or swelling, back pain, and muscle pain. SKIN: Negative for lesions, rash, and itching. HEMATOLOGY/LYMPHOLOGY Negative for prolonged bleeding, bruising easily, and swollen nodes. ENDOCRINE: Negative for cold or heat intolerance, polyuria, polydipsia and goiter. NEURO: negative The remainder of the review of systems is noncontributory. Objective: Patient presents to clinic ambulating in diabetic shoes Constitutional: Pt is a well developed 72 year old female who is alert, oriented, cooperative and in no apparent distress. Eyes: Following during examination. No redness or drainage. Respiratory: RR normal and nonlabored. Even breathing. No evidence of distress. Psychology: Patient is engaged during conversation. Normal affect and mood. Does not appear depressed or anxious. Vasc: DP and PT pulses are palpable bilateral. CFT is less than 5 seconds bilateral. Skin temperature is warm to warm proximal to distal bilateral. There is mild edema or varicosities noted. Hair growth decreased. Neuro: Protective sensation is absent to the foot and toes when tested with the 5.07 SWM bilateral. Vibratory sensation is absent at the hallux bilateral. + Significant neurological defecits. Derm: Inspection and palpation performed. Nails 1-5 right, 1-3,5 left are discolored-yellow, thick, crumbly, dystrophic and with subungal debris. Skin is of normal turgor and texture. Hyperkeratosis noted to left 2nd toe. NO ulcerations, scars, verruca or other lesions noted. Ortho: Ankle joint DF is decresaed with the knee extended and decreased with knee flexed. No pain or crepitus noted. STJ, MTJ ROM are full and free of pain or crepitus. Muscle strength is 5/5 for dorsiflexors, plantarflexors, inverters, everters. Digital deformities include hallux valgus b/l. Semi reducible hammertoes are present to lesser toes of b/l feet. Assessment: (L60.0) Onychocryptosis (primary encounter diagnosis) (M79.675) Pain in toe of left foot (M79.674) Pain in toe of right foot (Z89.422) History of amputation of lesser toe of left foot ([facility]) (L84) Callus of foot (E08.41) Diabetic mononeuropathy associated with diabetes mellitus due to underlying condition (HCC) (M20.12) Acquired hallux valgus of left alessia (M20.41, M20.42) Hammer toes of both feet Plan: 1. Patient was seen and evaluated. 2. Patient was instructed on the continued importance of diabetic foot care along with proper diet and keeping their blood sugar under control to prevent complications. Insqtructions given both oral and written. 3. Discussed painful callus of left 2nd toe. Callus is caused by hammertoe of left 2nd toe. Discussed options not limited to padding to offload the tuft of 2nd toe vs attempting flexor tenotomy but I do feel total correction will be limited vs hammertoe reconstruction. Patient woud like to continue with conservative care. Callus was reduced today with tissue nippers. 4. Toenails 1-5 right and 1-3,5 left debrided in length and thickness q7 modifier 5. Xrays ordered for evaluation of bunion/hammertoe of left foot 6. Diabetic shoes ordered Mercedes Byrnes DPM AMB ROOMING INTAKE FLOWSHEET DATA Patient presents with: Left Foot - New, Foot Deformity Right Foot - New, Foot Deformity Cheyenne Sánchez LPN documented in this encounter [facility] 10-02-2022 Miscellaneous Notes Called lvm asking pt to call back in and r/s appt from 12/11. Dr Butler will not be in the office that afternoon. documented in this encounter [facility] 08-29-2022 Note HNO ID: [id number] Author: Amrit Butler DPM Service: ? Author Type: Physician Type: Progress Notes Filed: 08/29/2022 6:52 AM Note Text: Follow up Podiatric Office Visit: Diabetic Nail Care Subjective: This 72 year old female presents to clinic c/o painful toenails. L 3rd toe thick callus noted. Patient states that the nails are especially painful with shoe gear and pressure. Patient admits to being diabetic and states that their blood sugar was 117 mg/dL this AM. Patient admts B/T/N in feet at this time. Patient denies pain in legs when walking. No other pedal complaints at this time. No change in medications or medical history since last visit. PAIN EVALUATION 08/28/2022 1437 Pain Level: 6 Pain Location: -- bilateral feet Description: Tingling;Numbness radiating: L-foot radiates up to hip Frequency: Intermittent Hemoglobin A1C (%) Date Value 01/21/2019 7.8 12/10/2018 8.2 12/07/2018 8.3 10/29/2018 8.8 08/10/2018 7.4 Frederick Cervantes DO PAST MEDICAL HISTORY Diagnosis Date Diastolic dysfunction, left ventricle 07/28/2014 06/13/2014 echocardiogram. Essential hypertension, benign Hallux valgus (acquired) 12/20/2010 Menopause SHANNON (obstructive sleep apnea) 08/01/14 Severe. 08/01/14 [facility] PSG with AHI 29.4-30.5. Corrected with 16 cm CPA with humidification. Poor balance 03/03/2013 Post-menopausal 09/09/2011 Sciatica of left side 03/14/2014 Due to lumbar spondylosis/stenosis. Type II or unspecified type diabetes mellitus without mention of complication, not stated as uncontrolled Unspecified asthma(493.90) Current Outpatient Medications Medication Sig nystatin-triamcinolone (MYCOLOG) ointment Apply sparingly to perineum twice daily for irritation/infection. metoprolol succinate ER (TOPROL XL) 100 mg Take 100 mg by mouth once daily. DULoxetine (CYMBALTA) 20 mg capsule Take 20 mg by mouth once daily. citalopram (CELEXA) 20 mg tablet Take 40 mg by mouth. Gauze Bandage ([employer] PACKING STRIP) 1/4 X 5 -yard bndg Apply 1 application to affected area once daily. insulin 70/30 NPH/regular units/mL (NOVOLIN 70/30) 50 units sc at breakfast, 55 units at lunch, 82 units at supper. (Patient taking differently: 70/90 units depending on sugars) oxyCODONE-acetaminophen (PERCOCET 10) 10-325 mg tablet Take 1 tablet by mouth as needed. potassium chloride ER (K-DUR, KLOR-CON) 20 mEq tablet Take 1 tablet by mouth once daily. losartan (COZAAR) 100 mg tablet Take 1 tablet by mouth once daily. gabapentin (NEURONTIN) 800 mg tablet Take 1 tablet by mouth four times daily. insulin needles, DISPOSABLE, (PEN NEEDLE) 31 X 5/16 Misc Ndle use as directed ASPIRIN 81 MG TAB Take one (1) tablet daily . REQUIP 4 MG TAB Take 1 tablet at bedtime as needed No current facility-administered medications for this visit. ALLERGIES Allergen Reactions Ambien [Zolpidem Ta* Other: See Comments Sleep walking Cats Itching, Shortness of Breath, Other: See Comments Stuffy nose, itching in mouth Codeine Itching Dogs Itching, Shortness of Breath, Other: See Comments Stuffy nose, itching in mouth Latex Rash, Itching Pravastatin Myalgia Seasonal Allergies Itching, Other: See Comments Runny nose/eyes, sneezing Objective: Patient presents to clinic ambulating in diabetic shoes Vasc: DP and PT pulses are palpable bilateral. CFT is less than 3 seconds bilateral. Skin temperature is warm to warm proximal to distal bilateral. There is edema and varicosities noted. Hair growth diminished. Neuro: Protective sensation is diminished to the foot and toes when tested with the 5.07 SWMF bilateral. Vibratory sensation is diminished at the MPJ bilateral. Significant neurological deficits. Derm: Inspection and palpation performed. Nails 1-5 R 1-3,5 L are discolored-yellow, thick, crumbly, dystrophic and with subungal debris. Skin is of normal turgor and texture. Hyperkeratosis not seen. NO ulcerations, scars, verruca or other lesions noted. Ulcer #1 Location: L 3rd toe Measurements: 0.3 cm x 0.3 cm x 0.2 cm August 28, 2021 Base: hematoma/granular All devitilized tissues removed Exudate: serous Comments: overlying callus all wound measurements are post debridement Ortho: Digital deformities include severe hammertoes and bunions. L 4th toe amp. Assessment: Onychocryptosis (primary encounter diagnosis) Onychomycosis Pain in toe of left foot Pain in toe of right foot History of amputation of lesser toe of left foot ([facility]) Type 2 diabetes mellitus with diabetic polyneuropathy, with long-term current use of insulin ([facility]) Ulcer of toe of left foot, with fat layer exposed ([facility]) Q7 class findings Plan: 1. Patient was seen and evaluated. 2. Nails 1-9 bilateral were debrided in length and thickness. 3. Sharp excisional debridement through the level of subcutaneous tissue was achieved at location L 3rd toe. All devitilized tissues were removed. Active bleeding (more content not included)... [facility] 08-29-2022 History of Presen t illness Narrative Images from the original note were not included. Follow up Podiatric Office Visit: Diabetic Nail Care Subjective: This 72 year old female presents to clinic c/o painful toenails. L 3rd toe thick callus noted. Patient states that the nails are especially painful with shoe gear and pressure. Patient admits to being diabetic and states that their blood sugar was 117 mg/dL this AM. Patient admts B/T/N in feet at this time. Patient denies pain in legs when walking. No other pedal complaints at this time. No change in medications or medical history since last visit. PAIN EVALUATION 08/28/2022 1437 Pain Level: 6 Pain Location: -- bilateral feet Description: Tingling;Numbness radiating: L-foot radiates up to hip Frequency: Intermittent Hemoglobin A1C (%) Date Value 01/21/2019 7.8 12/10/2018 8.2 12/07/2018 8.3 10/29/2018 8.8 08/10/2018 7.4 Frederick Cervantes, PAST MEDICAL HISTORY Diagnosis Date Diastolic dysfunction, left ventricle 07/28/2014 06/13/2014 echocardiogram. Essential hypertension, benign Hallux valgus (acquired) 12/20/2010 Menopause SHANNON (obstructive sleep apnea) 08/01/14 Severe. 08/01/14 [facility] PSG with AHI 29.4-30.5. Corrected with 16 cm CPA with humidification. Poor balance 03/03/2013 Post-menopausal 09/09/2011 Sciatica of left side 03/14/2014 Due to lumbar spondylosis/stenosis. Type II or unspecified type diabetes mellitus without mention of complication, not stated as uncontrolled Unspecified asthma(493.90) Current Outpatient Medications Medication Sig nystatin-triamcinolone (MYCOLOG) ointment Apply sparingly to perineum twice daily for irritation/infection. metoprolol succinate ER (TOPROL XL) 100 mg Take 100 mg by mouth once daily. DULoxetine (CYMBALTA) 20 mg capsule Take 20 mg by mouth once daily. citalopram (CELEXA) 20 mg tablet Take 40 mg by mouth. Gauze Bandage ([employer] PACKING STRIP) / X 5 -yard bndg Apply 1 application to affected area once daily. insulin 70/30 NPH/regular units/mL (NOVOLIN 70/30) 50 units sc at breakfast, 55 units at lunch, 82 units at supper. (Patient taking differently: 70/90 units depending on sugars) oxyCODONE-acetaminophen (PERCOCET 10) 10-325 mg tablet Take 1 tablet by mouth as needed. potassium chloride ER (K-DUR, KLOR-CON) 20 mEq tablet Take 1 tablet by mouth once daily. losartan (COZAAR) 100 mg tablet Take 1 tablet by mouth once daily. gabapentin (NEURONTIN) 800 mg tablet Take 1 tablet by mouth four times daily. insulin needles, DISPOSABLE, (PEN NEEDLE) 31 X 516 Misc Ndle use as directed ASPIRIN 81 MG TAB Take one (1) tablet daily . REQUIP 4 MG TAB Take 1 tablet at bedtime as needed No current facility-administered medications for this visit. ALLERGIES Allergen Reactions Ambien [Zolpidem Ta* Other: See Comments Sleep walking Cats Itching, Shortness of Breath, Other: See Comments Stuffy nose, itching in mouth Codeine Itching Dogs Itching, Shortness of Breath, Other: See Comments Stuffy nose, itching in mouth Latex Rash, Itching Pravastatin Myalgia Seasonal Allergies Itching, Other: See Comments Runny nose/eyes, sneezing Objective: Patient presents to clinic ambulating in diabetic shoes Vasc: DP and PT pulses are palpable bilateral. CFT is less than 3 seconds bilateral. Skin temperature is warm to warm proximal to distal bilateral. There is edema and varicosities noted. Hair growth diminished. Neuro: Protective sensation is diminished to the foot and toes when tested with the 5.07 SWMF bilateral. Vibratory sensation is diminished at the MPJ bilateral. Significant neurological deficits. Derm: Inspection and palpation performed. Nails 1-5 R 1-3,5 L are discolored-yellow, thick, crumbly, dystrophic and with subungal debris. Skin is of normal turgor and texture. Hyperkeratosis not seen. NO ulcerations, scars, verruca or other lesions noted. Ulcer #1 Location: L 3rd toe Measurements: 0.3 cm x 0.3 cm x 0.2 cm August 28, 2021 Base: hematoma/granular All devitilized tissues removed Exudate: serous Comments: overlying callus all wound measurements are post debridement Ortho: Digital deformities include severe hammertoes and bunions. L 4th toe amp. Assessment: Onychocryptosis (primary encounter diagnosis) Onychomycosis Pain in toe of left foot Pain in toe of right foot History of amputation of lesser toe of left foot ([facility]) Type 2 diabetes mellitus with diabetic polyneuropathy, with long-term current use of insulin ([facility]) Ulcer of toe of left foot, with fat layer exposed ([facility]) Q7 class findings Plan: 1. Patient was seen and evaluated. 2. Nails 1-9 bilateral were debrided in length and thickness. 3. Sharp excisional debridement through the level of subcutaneous tissue was achieved at location L 3rd toe. All devitilized tissues were removed. Active bleeding was achieved utilizing sharp dissection with scalpel/currette/tissue nipper. 4. Crest pad dispensed for the L 3rd toe today DFE updated today Patient is to RTC in 3 months All documentation from previous visit of 05/22/22 was copied and pasted, documentation has been reviewed and edited significantly as necessary for today's visit. Amrit Butler DPM, DABPM, FACFAS Pager: [phone] [facility] and [facility] locations documented in this encounter [facility] 07-22-2022 Note HNO ID: [id number] Author: BREONNA Davis Service: ? Author Type: Physician Unit Trust Manager Type: Progress Notes Filed: 07/22/2022 3:15 PM Note Text: This note was created using NoteWriter. Subjective Wilda White is a 72 year old female. HPI 72-year-old female presents for dysuria, urgency, frequency and some back pain for 2 weeks. Patient states she has history of UTIs and this feels similar. She denies any vomiting. No abdominal pain. No fevers. She does have a little bit of back pain. She last had a UTI back in December. PAST MEDICAL HISTORY Diagnosis Date Diastolic dysfunction, left ventricle 07/28/2014 06/13/2014 echocardiogram. Essential hypertension, benign Hallux valgus (acquired) 12/20/2010 Menopause SHANNON (obstructive sleep apnea) 08/01/14 Severe. 08/01/14 [facility] PSG with AHI 29.4-30.5. Corrected with 16 cm CPA with humidification. Poor balance 03/03/2013 Post-menopausal 09/09/2011 Sciatica of left side 03/14/2014 Due to lumbar spondylosis/stenosis. Type II or unspecified type diabetes mellitus without mention of complication, not stated as uncontrolled Unspecified asthma(493.90) PAST SURGICAL HISTORY Procedure Laterality Date APPENDECTOMY 2004 Dr. Cox COLONOSCOPY FLX DX W/COLLJ SPEC WHEN PFRMD Colonoscopy EPIDURAL for back pain HERNIA REPAIR W/MESH 04/2013 LAPAROSCOPY SURG CHOLECYSTECTOMY 10/07/11 Cholecystectomy, lap Dr. Cline PAST SURGICAL HISTORY OF nose surgery ALLERGIES Ambien [Zolpidem Tartrate], Cats, Codeine, Dogs, Latex, Pravastatin, and Seasonal Allergies MEDICATIONS cephALEXin (KEFLEX) 500 mg capsule Take 1 capsule by mouth twice daily for 7 days. nystatin-triamcinolone (MYCOLOG) ointment Apply sparingly to perineum twice daily for irritation/infection. metoprolol succinate ER (TOPROL XL) 100 mg Take 100 mg by mouth once daily. DULoxetine (CYMBALTA) 20 mg capsule Take 20 mg by mouth once daily. citalopram (CELEXA) 20 mg tablet Take 40 mg by mouth. Gauze Bandage ([employer] PACKING STRIP) 1/4 X 5 -yard bndg Apply 1 application to affected area once daily. insulin 70/30 NPH/regular units/mL (NOVOLIN 70/30) 50 units sc at breakfast, 55 units at lunch, 82 units at supper. (Patient taking differently: 70/90 units depending on sugars) oxyCODONE-acetaminophen (PERCOCET 10) 10-325 mg tablet Take 1 tablet by mouth as needed. potassium chloride ER (K-DUR, KLOR-CON) 20 mEq tablet Take 1 tablet by mouth once daily. losartan (COZAAR) 100 mg tablet Take 1 tablet by mouth once daily. gabapentin (NEURONTIN) 800 mg tablet Take 1 tablet by mouth four times daily. insulin needles, DISPOSABLE, (PEN NEEDLE) 31 X 5/16 Misc Ndle use as directed ASPIRIN 81 MG TAB Take one (1) tablet daily . REQUIP 4 MG TAB Take 1 tablet at bedtime as needed FAMILY HISTORY Problem Relation Age of Onset Diabetes Mother Hypertension Mother Glaucoma Mother Detached Retina Sister Diabetes Sister Hypertension Brother Social History Tobacco Use Smoking status: Former Packs/day: 0.10 Years: 8.00 Pack years: 0.80 Types: Cigarettes Start date: 1978 Quit date: 1985 Years since quittin.3 Smokeless tobacco: Never Tobacco comments: Smoked socially, on the weekends 1-2. Parents smoked in childhood home. Ex-spouse was a smoker. Vaping Use Vaping Use: Never used Substance Use Topics Alcohol use: Yes Comment: Occasional. Drug use: No Review of Systems Constitutional: Negative for chills and fever. HENT: Negative for congestion, ear pain and sore throat. Respiratory: Negative for cough and shortness of breath. Cardiovascular: Negative for chest pain. Gastrointestinal: Negative for diarrhea and vomiting. Genitourinary: Positive for dysuria, frequency and urgency. Negative for flank pain. Musculoskeletal: Positive for back pain. Objective BP 140/82 Pulse 69 Temp 36.8 ?C (98.3 ?F) Resp 26 Wt 124.1 kg (273 lb 9.6 oz) SpO2 94% BMI 46.96 kg/m? Physical Exam Vitals and nursing note reviewed. Constitutional: General: She is not in acute distress. Appearance: Normal appearance. She is not toxic-appearing. Cardiovascular: Rate and Rhythm: Normal rate and regular rhythm. Pulmonary: Effort: Pulmonary effort is normal. Breath sounds: Normal breath sounds. Abdominal: General: Abdomen is flat. Palpations: Abdomen is soft. Tenderness: There is no abdominal tenderness. There is no right CVA tenderness or left CVA tenderness. Neurological: Mental Status: She is alert. Assessment and Plan ASSESSMENT/PLAN: 1. Burning with urination - ICD9: 788.1, ICD10: R30.0 - UA positive for proteinuria and nitrates - Send urine for culture -Last had lab testing 1 year ago. Creatinine clearance calculated at 94. -Urine culture from December grew Klebsiella, susceptible to cephalosporins. - Begin treatment with Keflex for 7 days. - Patient education for prevention given - UA DIP, URIN (more content not included)... [facility] 07-22-2022 History of Presen t illness Narrative This note was created using [employer]. Subjective Wilda White is a 72 year old female. HPI 72-year-old female presents for dysuria, urgency, frequency and some back pain for 2 weeks. Patient states she has history of UTIs and this feels similar. She denies any vomiting. No abdominal pain. No fevers. She does have a little bit of back pain. She last had a UTI back in December. PAST MEDICAL HISTORY Diagnosis Date Diastolic dysfunction, left ventricle 07/28/2014 06/13/2014 echocardiogram. Essential hypertension, benign Hallux valgus (acquired) 12/20/2010 Menopause SHANNON (obstructive sleep apnea) 08/01/14 Severe. 08/01/14 [facility] PSG with AHI 29.4-30.5. Corrected with 16 cm CPA with humidification. Poor balance 03/03/2013 Post-menopausal 09/09/2011 Sciatica of left side 03/14/2014 Due to lumbar spondylosis/stenosis. Type II or unspecified type diabetes mellitus without mention of complication, not stated as uncontrolled Unspecified asthma(493.90) PAST SURGICAL HISTORY Procedure Laterality Date APPENDECTOMY 2004 Dr. oCx COLONOSCOPY FLX DX W/COLLJ SPEC WHEN PFRMD Colonoscopy EPIDURAL for back pain HERNIA REPAIR W/MESH 04/2013 LAPAROSCOPY SURG CHOLECYSTECTOMY 10/07/11 Cholecystectomy, lap Dr. Cline PAST SURGICAL HISTORY OF nose surgery ALLERGIES Ambien [Zolpidem Tartrate], Cats, Codeine, Dogs, Latex, Pravastatin, and Seasonal Allergies MEDICATIONS cephALEXin (KEFLEX) 500 mg capsule Take 1 capsule by mouth twice daily for 7 days. nystatin-triamcinolone (MYCOLOG) ointment Apply sparingly to perineum twice daily for irritation/infection. metoprolol succinate ER (TOPROL XL) 100 mg Take 100 mg by mouth once daily. DULoxetine (CYMBALTA) 20 mg capsule Take 20 mg by mouth once daily. citalopram (CELEXA) 20 mg tablet Take 40 mg by mouth. Gauze Bandage (CURITY [employer]IN PACKING STRIP) 1/4 X 5 -yard bndg Apply 1 application to affected area once daily. insulin 70/30 NPH/regular units/mL (NOVOLIN 70/30) 50 units sc at breakfast, 55 units at lunch, 82 units at supper. (Patient taking differently: 70/90 units depending on sugars) oxyCODONE-acetaminophen (PERCOCET 10) 10-325 mg tablet Take 1 tablet by mouth as needed. potassium chloride ER (K-DUR, KLOR-CON) 20 mEq tablet Take 1 tablet by mouth once daily. losartan (COZAAR) 100 mg tablet Take 1 tablet by mouth once daily. gabapentin (NEURONTIN) 800 mg tablet Take 1 tablet by mouth four times daily. insulin needles, DISPOSABLE, (PEN NEEDLE) 31 X 5/16 Misc Ndle use as directed ASPIRIN 81 MG TAB Take one (1) tablet daily . REQUIP 4 MG TAB Take 1 tablet at bedtime as needed FAMILY HISTORY Problem Relation Age of Onset Diabetes Mother Hypertension Mother Glaucoma Mother Detached Retina Sister Diabetes Sister Hypertension Brother Social History Tobacco Use Smoking status: Former Packs/day: 0.10 Years: 8.00 Pack years: 0.80 Types: Cigarettes Start date: 1978 Quit date: 1985 Years since quittin.3 Smokeless tobacco: Never Tobacco comments: Smoked socially, on the weekends 1-2. Parents smoked in childhood home. Ex-spouse was a smoker. Vaping Use Vaping Use: Never used Substance Use Topics Alcohol use: Yes Comment: Occasional. Drug use: No Review of Systems Constitutional: Negative for chills and fever. HENT: Negative for congestion, ear pain and sore throat. Respiratory: Negative for cough and shortness of breath. Cardiovascular: Negative for chest pain. Gastrointestinal: Negative for diarrhea and vomiting. Genitourinary: Positive for dysuria, frequency and urgency. Negative for flank pain. Musculoskeletal: Positive for back pain. Objective BP 140/82 Pulse 69 Temp 36.8 C (98.3 F) Resp 26 Wt 124.1 kg (273 lb 9.6 oz) SpO2 94% BMI 46.96 kg/m Physical Exam Vitals and nursing note reviewed. Constitutional: General: She is not in acute distress. Appearance: Normal appearance. She is not toxic-appearing. Cardiovascular: Rate and Rhythm: Normal rate and regular rhythm. Pulmonary: Effort: Pulmonary effort is normal. Breath sounds: Normal breath sounds. Abdominal: General: Abdomen is flat. Palpations: Abdomen is soft. Tenderness: There is no abdominal tenderness. There is no right CVA tenderness or left CVA tenderness. Neurological: Mental Status: She is alert. Assessment and Plan ASSESSMENT/PLAN: 1. Burning with urination - ICD9: 788.1, ICD10: R30.0 - UA positive for proteinuria and nitrates - Send urine for culture -Last had lab testing 1 year ago. Creatinine clearance calculated at 94. -Urine culture from December grew Klebsiella, susceptible to cephalosporins. - Begin treatment with Keflex for 7 days. - Patient education for prevention given - UA DIP, URINE (POC) - URINE CULTURE Diagnosis and treatment plan were discussed and questions were answered to the patient's satisfaction. Pt acknowledged understanding of concepts and follow up plan. Specific signs and symptoms that would indicate the need for higher level of care were discussed in detail warranting prompt ER evaluation. BREONNA Davis documented in this encounter [facility] 05-22-2022 Note HNO ID: [id number] Author: Amrit Butler DPM Service: ? Author Type: Physician Type: Progress Notes Filed: 05/22/2022 3:51 PM Note Text: Follow up Podiatric Office Visit: Diabetic Nail Care Subjective: This 72 year old female presents to clinic c/o painful toenails. L 3rd toe thick callus noted. Patient states that the nails are especially painful with shoe gear and pressure. Patient admits to being diabetic and states that their blood sugar was 170 mg/dL this AM. Patient admts B/T/N in feet at this time. Patient denies pain in legs when walking. No other pedal complaints at this time. No change in medications or medical history since last visit. PAIN EVALUATION 05/22/2022 1456 Pain Level: 6 Pain Location: -- B Feet Description: Numbness Duration Units: Unknown Frequency: Continuous Hemoglobin A1C (%) Date Value 01/21/2019 7.8 12/10/2018 8.2 12/07/2018 8.3 10/29/2018 8.8 08/10/2018 7.4 Frederick Cervantes DO PAST MEDICAL HISTORY Diagnosis Date Diastolic dysfunction, left ventricle 07/28/2014 06/13/2014 echocardiogram. Essential hypertension, benign Hallux valgus (acquired) 12/20/2010 Menopause SHANNON (obstructive sleep apnea) 08/01/14 Severe. 08/01/14 [facility] PSG with AHI 29.4-30.5. Corrected with 16 cm CPA with humidification. Poor balance 03/03/2013 Post-menopausal 09/09/2011 Sciatica of left side 03/14/2014 Due to lumbar spondylosis/stenosis. Type II or unspecified type diabetes mellitus without mention of complication, not stated as uncontrolled Unspecified asthma(493.90) Current Outpatient Medications Medication Sig nystatin-triamcinolone (MYCOLOG) ointment Apply sparingly to perineum twice daily for irritation/infection. metoprolol succinate ER (TOPROL XL) 100 mg Take 100 mg by mouth once daily. DULoxetine (CYMBALTA) 20 mg capsule Take 20 mg by mouth once daily. citalopram (CELEXA) 20 mg tablet Take 40 mg by mouth. Gauze Bandage ([employer] PACKING STRIP) 1/4 X 5 -yard bndg Apply 1 application to affected area once daily. insulin 70/30 NPH/regular units/mL (NOVOLIN 70/30) 50 units sc at breakfast, 55 units at lunch, 82 units at supper. (Patient taking differently: 70/90 units depending on sugars) oxyCODONE-acetaminophen (PERCOCET 10) 10-325 mg tablet Take 1 tablet by mouth as needed. potassium chloride ER (K-DUR, KLOR-CON) 20 mEq tablet Take 1 tablet by mouth once daily. losartan (COZAAR) 100 mg tablet Take 1 tablet by mouth once daily. gabapentin (NEURONTIN) 800 mg tablet Take 1 tablet by mouth four times daily. insulin needles, DISPOSABLE, (PEN NEEDLE) 31 X 5/16 Misc Ndle use as directed ASPIRIN 81 MG TAB Take one (1) tablet daily . REQUIP 4 MG TAB Take 1 tablet at bedtime as needed No current facility-administered medications for this visit. ALLERGIES Allergen Reactions Ambien [Zolpidem Ta* Other: See Comments Sleep walking Cats Itching, Shortness of Breath, Other: See Comments Stuffy nose, itching in mouth Codeine Itching Dogs Itching, Shortness of Breath, Other: See Comments Stuffy nose, itching in mouth Latex Rash, Itching Pravastatin Myalgia Seasonal Allergies Itching, Other: See Comments Runny nose/eyes, sneezing Objective: Patient presents to clinic ambulating in diabetic shoes Vasc: DP and PT pulses are palpable bilateral. CFT is less than 3 seconds bilateral. Skin temperature is warm to warm proximal to distal bilateral. There is edema and varicosities noted. Hair growth diminished. Neuro: Protective sensation is diminished to the foot and toes when tested with the 5.07 SWMF bilateral. Vibratory sensation is diminished at the MPJ bilateral. Significant neurological deficits. Derm: Inspection and palpation performed. Nails 1-5 R 1-3,5 L are discolored-yellow, thick, crumbly, dystrophic and with subungal debris. Skin is of normal turgor and texture. Hyperkeratosis not seen. NO ulcerations, scars, verruca or other lesions noted. Ulcer #1 Location: L 3rd toe Measurements: 0.3 cm x 0.3 cm x 0.2 cm May 22, 2021 Base: hematoma/granular All devitilized tissues removed Exudate: serous Comments: overlying callus all wound measurements are post debridement Ortho: Digital deformities include severe hammertoes and bunions. L 4th toe amp. Assessment: Onychocryptosis (primary encounter diagnosis) Onychomycosis Pain in toe of left foot Pain in toe of right foot History of amputation of lesser toe of left foot (hcc) Type 2 diabetes mellitus with diabetic polyneuropathy, with long-term current use of insulin (hcc) Ulcer of toe of left foot, with fat layer exposed (hcc) Q7 class findings Plan: 1. Patient was seen and evaluated. 2. Nails 1-9 bilateral were debrided in length and thickness. 3. Sharp excisional debridement through the level of subcutaneous tissue was achieved at location L 3rd toe. All devitilized tissues were removed. Active bleeding was achieved utilizing sharp di (more content not included)... [facility] 05-22-2022 History of Presen t illness Narrative Images from the original note were not included. Follow up Podiatric Office Visit: Diabetic Nail Care Subjective: This 72 year old female presents to clinic c/o painful toenails. L 3rd toe thick callus noted. Patient states that the nails are especially painful with shoe gear and pressure. Patient admits to being diabetic and states that their blood sugar was 170 mg/dL this AM. Patient admts B/T/N in feet at this time. Patient denies pain in legs when walking. No other pedal complaints at this time. No change in medications or medical history since last visit. PAIN EVALUATION 05/22/2022 1456 Pain Level: 6 Pain Location: -- B Feet Description: Numbness Duration Units: Unknown Frequency: Continuous Hemoglobin A1C (%) Date Value 01/21/2019 7.8 12/10/2018 8.2 12/07/2018 8.3 10/29/2018 8.8 08/10/2018 7.4 Frederick Cervantes DO PAST MEDICAL HISTORY Diagnosis Date Diastolic dysfunction, left ventricle 07/28/2014 06/13/2014 echocardiogram. Essential hypertension, benign Hallux valgus (acquired) 12/20/2010 Menopause SHANNON (obstructive sleep apnea) 08/01/14 Severe. 08/01/14 [facility] PSG with AHI 29.4-30.5. Corrected with 16 cm CPA with humidification. Poor balance 03/03/2013 Post-menopausal 09/09/2011 Sciatica of left side 03/14/2014 Due to lumbar spondylosis/stenosis. Type II or unspecified type diabetes mellitus without mention of complication, not stated as uncontrolled Unspecified asthma(493.90) Current Outpatient Medications Medication Sig nystatin-triamcinolone (MYCOLOG) ointment Apply sparingly to perineum twice daily for irritation/infection. metoprolol succinate ER (TOPROL XL) 100 mg Take 100 mg by mouth once daily. DULoxetine (CYMBALTA) 20 mg capsule Take 20 mg by mouth once daily. citalopram (CELEXA) 20 mg tablet Take 40 mg by mouth. Gauze Bandage ([employer] PACKING STRIP) 1/4 X 5 -yard bndg Apply 1 application to affected area once daily. insulin 70/30 NPH/regular units/mL (NOVOLIN 70/30) 50 units sc at breakfast, 55 units at lunch, 82 units at supper. (Patient taking differently: 70/90 units depending on sugars) oxyCODONE-acetaminophen (PERCOCET 10) 10-325 mg tablet Take 1 tablet by mouth as needed. potassium chloride ER (K-DUR, KLOR-CON) 20 mEq tablet Take 1 tablet by mouth once daily. losartan (COZAAR) 100 mg tablet Take 1 tablet by mouth once daily. gabapentin (NEURONTIN) 800 mg tablet Take 1 tablet by mouth four times daily. insulin needles, DISPOSABLE, (PEN NEEDLE) 31 X 5/16 [facility] [place] use as directed ASPIRIN 81 MG TAB Take one (1) tablet daily . REQUIP 4 MG TAB Take 1 tablet at bedtime as needed No current facility-administered medications for this visit. ALLERGIES Allergen Reactions Ambien [Zolpidem Ta* Other: See Comments Sleep walking Cats Itching, Shortness of Breath, Other: See Comments Stuffy nose, itching in mouth Codeine Itching Dogs Itching, Shortness of Breath, Other: See Comments Stuffy nose, itching in mouth Latex Rash, Itching Pravastatin Myalgia Seasonal Allergies Itching, Other: See Comments Runny nose/eyes, sneezing Objective: Patient presents to clinic ambulating in diabetic shoes Vasc: DP and PT pulses are palpable bilateral. CFT is less than 3 seconds bilateral. Skin temperature is warm to warm proximal to distal bilateral. There is edema and varicosities noted. Hair growth diminished. Neuro: Protective sensation is diminished to the foot and toes when tested with the 5.07 SWMF bilateral. Vibratory sensation is diminished at the MPJ bilateral. Significant neurological deficits. Derm: Inspection and palpation performed. Nails 1-5 R 1-3,5 L are discolored-yellow, thick, crumbly, dystrophic and with subungal debris. Skin is of normal turgor and texture. Hyperkeratosis not seen. NO ulcerations, scars, verruca or other lesions noted. Ulcer #1 Location: L 3rd toe Measurements: 0.3 cm x 0.3 cm x 0.2 cm May 22, 2021 Base: hematoma/granular All devitilized tissues removed Exudate: serous Comments: overlying callus all wound measurements are post debridement Ortho: Digital deformities include severe hammertoes and bunions. L 4th toe amp. Assessment: Onychocryptosis (primary encounter diagnosis) Onychomycosis Pain in toe of left foot Pain in toe of right foot History of amputation of lesser toe of left foot ([facility]) Type 2 diabetes mellitus with diabetic polyneuropathy, with long-term current use of insulin ([facility]) Ulcer of toe of left foot, with fat layer exposed ([facility]) Q7 class findings Plan: 1. Patient was seen and evaluated. 2. Nails 1-9 bilateral were debrided in length and thickness. 3. Sharp excisional debridement through the level of subcutaneous tissue was achieved at location L 3rd toe. All devitilized tissues were removed. Active bleeding was achieved utilizing sharp dissection with scalpel/currette/tissue nipper. 4. Crest pad dispensed for the L 3rd toe today Patient is to RTC in 3 months All documentation from previous visit of 02/20/22 was copied and pasted, documentation has been reviewed and edited significantly as necessary for today's visit. Amrit Butler DPM, DABPM, FACFAS Pager: [phone] [facility] and [facility] locations documented in this encounter [facility] 02-21-2022 History of Presen t illness Narrative Images from the original note were not included. Follow up Podiatric Office Visit: Diabetic Nail Care Subjective: This 71 year old female presents to clinic c/o painful toenails. NEW CONCERN about L 3rd toe thick callus noted. Patient states that the nails are especially painful with shoe gear and pressure. Patient admits to being diabetic and states that their blood sugar was 203 mg/dL this AM. Patient admts B/T/N in feet at this time. Patient denies pain in legs when walking. No other pedal complaints at this time. No change in medications or medical history since last visit. PAIN EVALUATION 02/20/2022 1437 Pain Level: 4 Pain Location: -- B Feet Description: Stabbing Duration Units: Unknown Frequency: Intermittent Intervention/Comfort measure: Medication Hemoglobin A1C (%) Date Value 01/21/2019 7.8 12/10/2018 8.2 12/07/2018 8.3 10/29/2018 8.8 08/10/2018 7.4 Frederick Cervantes DO PAST MEDICAL HISTORY Diagnosis Date Diastolic dysfunction, left ventricle 07/28/2014 06/13/2014 echocardiogram. Essential hypertension, benign Hallux valgus (acquired) 12/20/2010 Menopause SHANNON (obstructive sleep apnea) 08/01/14 Severe. 08/01/14 [facility] PSG with AHI 29.4-30.5. Corrected with 16 cm CPA with humidification. Poor balance 03/03/2013 Post-menopausal 09/09/2011 Sciatica of left side 03/14/2014 Due to lumbar spondylosis/stenosis. Type II or unspecified type diabetes mellitus without mention of complication, not stated as uncontrolled Unspecified asthma(493.90) Current Outpatient Medications Medication Sig nystatin-triamcinolone (MYCOLOG) ointment Apply sparingly to perineum twice daily for irritation/infection. metoprolol succinate ER (TOPROL XL) 100 mg Take 100 mg by mouth once daily. DULoxetine (CYMBALTA) 20 mg capsule Take 20 mg by mouth once daily. (Patient not taking: Reported on 08/01/2021 ) citalopram (CELEXA) 20 mg tablet Take 40 mg by mouth. (Patient not taking: Reported on 08/01/2021 ) Gauze Bandage ([employer] PACKING STRIP) 1/4 X 5 -yard bndg Apply 1 application to affected area once daily. (Patient not taking: Reported on 11/14/2021) insulin 70/30 NPH/regular units/mL (NOVOLIN 70/30) 50 units sc at breakfast, 55 units at lunch, 82 units at supper. (Patient taking differently: 70/90 units depending on sugars) oxyCODONE-acetaminophen (PERCOCET 10) 10-325 mg tablet Take 1 tablet by mouth as needed. (Patient not taking: No sig reported) potassium chloride ER (K-DUR, KLOR-CON) 20 mEq tablet Take 1 tablet by mouth once daily. losartan (COZAAR) 100 mg tablet Take 1 tablet by mouth once daily. gabapentin (NEURONTIN) 800 mg tablet Take 1 tablet by mouth four times daily. (Patient not taking: Reported on 08/01/2021) insulin needles, DISPOSABLE, (PEN NEEDLE) 31 X 08/06 Misc Ndle use as directed ASPIRIN 81 MG TAB Take one (1) tablet daily . REQUIP 4 MG TAB Take 1 tablet at bedtime as needed No current facility-administered medications for this visit. ALLERGIES Allergen Reactions Ambien [Zolpidem Ta* Other: See Comments Sleep walking Cats Itching, Shortness of Breath, Other: See Comments Stuffy nose, itching in mouth Codeine Itching Dogs Itching, Shortness of Breath, Other: See Comments Stuffy nose, itching in mouth Latex Rash, Itching Pravastatin Myalgia Seasonal Allergies Itching, Other: See Comments Runny nose/eyes, sneezing Objective: Patient presents to clinic ambulating in diabetic shoes Vasc: DP and PT pulses are palpable bilateral. CFT is less than 3 seconds bilateral. Skin temperature is warm to warm proximal to distal bilateral. There is edema and varicosities noted. Hair growth diminished. Neuro: Protective sensation is diminished to the foot and toes when tested with the 5.07 SWMF bilateral. Vibratory sensation is diminished at the MPJ bilateral. Significant neurological defecits. Derm: Inspection and palpation performed. Nails 1-5 R 1-3,5 L are discolored-yellow, thick, crumbly, dystrophic and with subungal debris. Skin is of normal turgor and texture. Hyperkeratosis not seen. NO ulcerations, scars, verruca or other lesions noted. Ulcer #1 Location: L 3rd toe Measurements: 0.3 cm x 0.3 cm x 0.2 cm February 21, 2022 Base: hematoma/granular All devitilized tissues removed Exudate: serous Comments: overlying callus all wound measurements are post debridement Ortho: Digital deformities include severe hammertoes and bunions. L 4th toe amp. Assessment: Onychocryptosis (primary encounter diagnosis) Onychomycosis Pain in toe of left foot Pain in toe of right foot History of amputation of lesser toe of left foot (hcc) Type 2 diabetes mellitus with diabetic polyneuropathy, with long-term current use of insulin (hcc) Q7 class findings Plan: 1. Patient was seen and evaluated. 2. Nails 1-9 bilateral were debrided in length and thickness. 3. Sharp excisional debridement through the level of subcutaneous tissue was achieved at location L 3rd toe. All devitilized tissues were removed. Active bleeding was achieved utilizing sharp dissection with scalpel/currette/tissue nipper. 4. Betadine/bandaid. They will let me know if not healing up right away. Patient is to RTC in 3 months All documentation from previous visit of 11/14/21 was copied and pasted, documentation has been reviewed and edited significantly as necessary for today's visit. Amrit Butler DPM, DABPM, FACFAS Pager: [phone] [facility] [place] [facility] documented in this encounter [facility] 01-22-2022 Miscellaneous Notes Patient given results and verbalized understanding of instructions given. Madalyn Artis Please inform patient that the urine culture revealed bacterial growth. The antibiotic picked looks to be appropriate for treatment. The fungal culture did not reveal growth at 3 days. We will call if that changes. Please follow up with PCP documented in this encounter [facility] 01-18-2022 History of Presen t illness Narrative This note was created using [employer]. Subjective Wilda White is a 71 year old female. 71 year old female with PMH DM, RLS, HTN, hyperlipidemia, asthma, SHANNON, GERD, obesity and PE (on xarelto) presents with concerns for yeast infection. Acute onset of symptoms was 3 to 4 weeks ago. States symptoms started around the time she had a UTI, Was seen by Dr. Cervantes, States she was placed on medicine for an ATB 2 pills 2 days apart states Has used hydrocortisone cream. States her sugars have been normal States this mornings sugar was 99. Endorses that it is worsening Denies that she has followed up with Dr. Cervantes She further endorses well I just called in, didn't actually have him look at it ROS and HPI at times is limited, states when you get old like us and retire, you forget things Patient endorses she has had rash in past, and was provided Diflucan The history is provided by the patient. No fire information officer was used. Rash This is a recurrent problem. The current episode started 1 to 4 weeks ago. The problem has been gradually worsening since onset. Location: perineum and groin. The rash is characterized by redness and itchiness. She was exposed to nothing. Pertinent negatives include no anorexia, congestion, cough, diarrhea, eye pain, facial edema, fatigue, fever, joint pain, nail changes, rhinorrhea, shortness of breath, sore throat or vomiting. Past treatments include anti-itch cream and topical steroids. The treatment provided no relief. There is no history of allergies, asthma, eczema or varicella. PAST MEDICAL HISTORY Diagnosis Date Diastolic dysfunction, left ventricle 07/28/2014 06/13/2014 echocardiogram. Essential hypertension, benign Hallux valgus (acquired) 12/20/2010 Menopause SHANNON (obstructive sleep apnea) 08/01/14 Severe. 08/01/14 [facility] PSG with AHI 29.4-30.5. Corrected with 16 cm CPA with humidification. Poor balance 03/03/2013 Post-menopausal 09/09/2011 Sciatica of left side 03/14/2014 Due to lumbar spondylosis/stenosis. Type II or unspecified type diabetes mellitus without mention of complication, not stated as uncontrolled Unspecified asthma(493.90) PAST SURGICAL HISTORY Procedure Laterality Date APPENDECTOMY 2004 Dr. Cox COLONOSCOPY FLX DX W/COLLJ SPEC WHEN PFRMD Colonoscopy EPIDURAL for back pain HERNIA REPAIR W/MESH 04/2013 LAPAROSCOPY SURG CHOLECYSTECTOMY 10/07/11 Cholecystectomy, lap Dr. Cline PAST SURGICAL HISTORY OF nose surgery ALLERGIES Ambien [Zolpidem Tartrate], Cats, Codeine, Dogs, Latex, Pravastatin, and Seasonal Allergies MEDICATIONS metoprolol succinate ER (TOPROL XL) 100 mg Take 100 mg by mouth once daily. potassium chloride ER (K-DUR, KLOR-CON) 20 mEq tablet Take 1 tablet by mouth once daily. losartan (COZAAR) 100 mg tablet Take 1 tablet by mouth once daily. insulin needles, DISPOSABLE, (PEN NEEDLE) 31 X 5/16 Misc Ndle use as directed ASPIRIN 81 MG TAB Take one (1) tablet daily . REQUIP 4 MG TAB Take 1 tablet at bedtime as needed nystatin-triamcinolone (MYCOLOG) ointment Apply sparingly to perineum twice daily for irritation/infection. fluconazole (DIFLUCAN) 150 mg tablet Take 1 tablet by mouth one time only for 1 dose. Repeat in 3 days as needed. cephALEXin (KEFLEX) 500 mg capsule Take 1 capsule by mouth twice daily for 7 days. DULoxetine (CYMBALTA) 20 mg capsule Take 20 mg by mouth once daily. (Patient not taking: Reported on 08/01/2021 ) citalopram (CELEXA) 20 mg tablet Take 40 mg by mouth. (Patient not taking: Reported on 08/01/2021 ) Gauze Bandage (CURITY PLAIN PACKING STRIP) 1/4 X 5 -yard bndg Apply 1 application to affected area once daily. (Patient not taking: Reported on 11/14/2021) insulin 70/30 NPH/regular units/mL (NOVOLIN 70/30) 50 units sc at breakfast, 55 units at lunch, 82 units at supper. (Patient taking differently: 70/90 units depending on sugars) oxyCODONE-acetaminophen (PERCOCET 10) 10-325 mg tablet Take 1 tablet by mouth as needed. (Patient not taking: No sig reported) gabapentin (NEURONTIN) 800 mg tablet Take 1 tablet by mouth four times daily. (Patient not taking: Reported on 08/01/2021) FAMILY HISTORY Problem Relation Age of Onset Diabetes Mother Hypertension Mother Glaucoma Mother Detached Retina Sister Diabetes Sister Hypertension Brother Social History Tobacco Use Smoking status: Former Packs/day: 0.10 Years: 8.00 Pack years: 0.80 Types: Cigarettes Start date: 1978 Quit date: 1985 Years since quittin.8 Smokeless tobacco: Never Tobacco comments: Smoked socially, on the weekends 1-2. Parents smoked in childhood home. Ex-spouse was a smoker. Vaping Use Vaping Use: Never used Substance Use Topics Alcohol use: Yes Comment: Occasional. Drug use: No Review of Systems Constitutional: Negative for fatigue and fever. HENT: Negative for congestion, rhinorrhea and sore throat. Eyes: Negative for pain. Respiratory: Negative for apnea, cough, choking, chest tightness and shortness of breath. Cardiovascular: Negative for chest pain, palpitations and leg swelling. Gastrointestinal: Negative for anorexia, diarrhea and vomiting. Genitourinary: Positive for dysuria and frequency. Musculoskeletal: Negative for arthralgias, back pain, gait problem and joint pain. Skin: Positive for rash. Negative for nail changes. Allergic/Immunologic: Negative for environmental allergies, food allergies and immunocompromised state. Hematological: Negative for adenopathy. Does not bruise/bleed easily. Psychiatric/Behavioral: Negative for agitation and behavioral problems. Objective BP 136/72 Pulse 68 Temp 36.9 C (98.4 F) (Tympanic) Resp 18 Wt 115.7 kg (255 lb) SpO2 97% BMI 43.77 kg/m Physical Exam Vitals and nursing note reviewed. Constitutional: General: She is not in acute distress. Appearance: Normal appearance. She is normal weight. She is not ill-appearing, toxic-appearing or diaphoretic. HENT: Head: Normocephalic and atraumatic. Right Ear: Ear canal and external ear normal. Left Ear: Ear canal and external ear normal. Nose: Nose normal. No congestion or rhinorrhea. Mouth/Throat: Mouth: Mucous membranes are moist. Pharynx: No oropharyngeal exudate or posterior oropharyngeal erythema. Eyes: General: Right eye: No discharge. Left eye: No discharge. Extraocular Movements: Extraocular movements intact. Conjunctiva/sclera: Conjunctivae normal. Pupils: Pupils are equal, round, and reactive to light. Cardiovascular: Rate and Rhythm: Normal rate and regular rhythm. Pulses: Normal pulses. Heart sounds: Normal heart sounds. No murmur heard. No friction rub. Pulmonary: Effort: Pulmonary effort is normal. No respiratory distress. Breath sounds: Normal breath sounds. No stridor. No wheezing, rhonchi or rales. Chest: Chest wall: No tenderness. Abdominal: General: Abdomen is flat. There is no distension. Palpations: Abdomen is soft. There is no mass. Tenderness: There is no abdominal tenderness. There is no right CVA tenderness, left CVA tenderness, guarding or rebound. Hernia: No hernia is present. Musculoskeletal: General: No swelling, tenderness, deformity or signs of injury. Normal range of motion. Cervical back: Normal range of motion and neck supple. No rigidity. Right lower leg: No edema. Left lower leg: No edema. Lymphadenopathy: Cervical: No cervical adenopathy. Skin: General: Skin is warm and dry. Capillary Refill: Capillary refill takes less than 2 seconds. Coloration: Skin is not jaundiced or pale. Findings: Erythema and rash present. No bruising or lesion. Comments: Inguinal folds, perineum with marked erythema. +moist No abscess. No drainage. No red streaking Neurological: General: No focal deficit present. Mental Status: She is alert and oriented to person, place, and time. Cranial Nerves: No cranial nerve deficit. Sensory: No sensory deficit. Motor: No weakness. Coordination: Coordination normal. Gait: Gait normal. Psychiatric: Mood and Affect: Mood normal. Behavior: Behavior normal. Thought Content: Thought content normal. Judgment: Judgment normal. Assessment and Plan ASSESSMENT/PLAN: 1. Dysuria - ICD9: 788.1, ICD10: R30.0 (primary diagnosis) Recurrent Patient states 3 to 4 weeks But she cannot recall the date she saw [facility] GetNotes reveals 11/23/21, but unable to see treatment completely - UA positive for sandy esterase and nitrates - Send urine for culture - Begin treatment with keflex - Patient education for prevention given - GLUCOSE, BLOOD (POC) - UA DIP, URINE (POC) - URINE CULTURE 2. Cely rash of groin - ICD9: 112.89, ICD10: B37.89 Will provide patient with Diflucan And was provided Myco log cream as well - FUNGAL SCREEN-pending Blood glucose 182 3. Recurrent UTI (urinary tract infection) - ICD9: 599.0, ICD10: N39.0 Recurrent Patient states 3 to 4 weeks But she cannot recall the date she saw [facility] GetNotes reveals 11/23/21, but unable to see treatment completely - UA positive for sandy esterase and nitrates - Send urine for culture - Begin treatment with keflex - Patient education for prevention given - GLUCOSE, BLOOD (POC) - UA DIP, URINE (POC) - URINE CULTURE - URINE CULTURE Heather Owens APRN.MED DIR documented in this encounter [facility] 11-15-2021 History of Presen t illness Narrative Images from the original note were not included. Follow up Podiatric Office Visit: Diabetic Nail Care Subjective: This 71 year old female presents to clinic c/o painful toenails. Patient states that the nails are especially painful with shoe gear and pressure. Patient admits to being diabetic and states that their blood sugar was 191 mg/dL this AM. Patient admts B/T/N in feet at this time. Patient denies pain in legs when walking. No other pedal complaints at this time. No change in medications or medical history since last visit. PAIN EVALUATION 11/14/2021 1524 Pain Level: 7 Pain Location: -- B Feet Description: Numbness;Tingling Duration Units: Unknown Frequency: Intermittent Ambulating Intervention/Comfort measure: Reposition;Relaxation;Medication ;Other: See comment Comments: Elevation Hemoglobin A1C (%) Date Value 01/21/2019 7.8 12/10/2018 8.2 12/07/2018 8.3 10/29/2018 8.8 08/10/2018 7.4 Frederick Cervantes DO PAST MEDICAL HISTORY Diagnosis Date Diastolic dysfunction, left ventricle 07/28/2014 06/13/2014 echocardiogram. Essential hypertension, benign Hallux valgus (acquired) 12/20/2010 Menopause SHANNON (obstructive sleep apnea) 08/01/14 Severe. 08/01/14 [facility] PSG with AHI 29.4-30.5. Corrected with 16 cm CPA with humidification. Poor balance 03/03/2013 Post-menopausal 09/09/2011 Sciatica of left side 03/14/2014 Due to lumbar spondylosis/stenosis. Type II or unspecified type diabetes mellitus without mention of complication, not stated as uncontrolled Unspecified asthma(493.90) Current Outpatient Medications Medication Sig metoprolol succinate ER (TOPROL XL) 100 mg Take 100 mg by mouth once daily. insulin 70/30 NPH/regular units/mL (NOVOLIN 70/30) 50 units sc at breakfast, 55 units at lunch, 82 units at supper. (Patient taking differently: 70/90 units depending on sugars) potassium chloride ER (K-DUR, KLOR-CON) 20 mEq tablet Take 1 tablet by mouth once daily. losartan (COZAAR) 100 mg tablet Take 1 tablet by mouth once daily. insulin needles, DISPOSABLE, (PEN NEEDLE) 31 X 08/06 Mis Ndle use as directed ASPIRIN 81 MG TAB Take one (1) tablet daily . REQUIP 4 MG TAB Take 1 tablet at bedtime as needed DULoxetine (CYMBALTA) 20 mg capsule Take 20 mg by mouth once daily. (Patient not taking: Reported on 08/01/2021 ) citalopram (CELEXA) 20 mg tablet Take 40 mg by mouth. (Patient not taking: Reported on 08/01/2021 ) Gauze Bandage (CURITY PLAIN PACKING STRIP) 03/27 X 5 -yard bndg Apply 1 application to affected area once daily. (Patient not taking: Reported on 11/14/2021) oxyCODONE-acetaminophen (PERCOCET 10) 10-325 mg tablet Take 1 tablet by mouth as needed. (Patient not taking: No sig reported) gabapentin (NEURONTIN) 800 mg tablet Take 1 tablet by mouth four times daily. (Patient not taking: Reported on 08/01/2021) No current facility-administered medications for this visit. ALLERGIES Allergen Reactions Ambien [Zolpidem Ta* Other: See Comments Sleep walking Cats Itching, Shortness of Breath, Other: See Comments Stuffy nose, itching in mouth Codeine Itching Dogs Itching, Shortness of Breath, Other: See Comments Stuffy nose, itching in mouth Latex Rash, Itching Pravastatin Myalgia Seasonal Allergies Itching, Other: See Comments Runny nose/eyes, sneezing Objective: Patient presents to clinic ambulating in diabetic shoes Vasc: DP and PT pulses are palpable bilateral. CFT is less than 3 seconds bilateral. Skin temperature is warm to warm proximal to distal bilateral. There is edema and varicosities noted. Hair growth diminished. Neuro: Protective sensation is diminsihed to the foot and toes when tested with the 5.07 SWM bilateral. Vibratory sensation is diminished at the MPJ bilateral. Significant neurological defecits. Derm: Inspection and palpation performed. Nails 1-5 R 1-3,5L are discolored-yellow, thick, crumbly, dystrophic and with subungal debris. Skin is of normal turgor and texture. Hyperkeratosis not seen. NO ulcerations, scars, verruca or other lesions noted. Ortho: Digital deformities include severe hammertoes and bunions. Assessment: History of amputation of lesser toe of left foot (hcc) (primary encounter diagnosis) Type 2 diabetes mellitus with diabetic polyneuropathy, with long-term current use of insulin (hcc) Comprehensive diabetic foot examination, type 2 dm, encounter for (hcc) Hammer toes of both feet Pes planus of both feet Bilateral bunions Q7 class findings Plan: 1. Patient was seen and evaluated. 2. Nails 1-9 bilateral were debrided in length and thickness. 3. Diabetic shoes RX today 4. Patient is to RTC in 3 months Amrit Butler DPM, DABPM, FACFAS Pager: [phone] [facility] [place] [facility] and [facility] locations documented in this encounter [facility] 08-02-2021 History of Presen t illness Narrative Images from the original note were not included. Follow up Podiatric Office Visit: Diabetic Nail Care Subjective: This 71 year old female presents to clinic c/o painful toenails. Patient states that the nails are especially painful with shoe gear and pressure. Patient admits to being diabetic and states that their blood sugar was 97mg/dL this AM. Patient admits B/T/N in feet at this time. Patient denies pain in legs when walking. No other pedal complaints at this time. No change in medications or medical history since last visit. PAIN EVALUATION 08/01/2021 1516 Pain Level: 1 Pain Location: Bilateral feet Description: Numbness Duration Amount of Time: ongoing Frequency: Intermittent Hemoglobin A1C (%) Date Value 08/10/2018 7.4 Hemoglobin A1c (%) Date Value 01/02/2016 7.5 06/28/2015 7.7 12/26/2014 7.4 08/29/2014 11.5 03/14/2014 9.4 Hemoglobin A1C (POCT) (%) Date Value 07/03/2016 6.6 Frederick Cervantes DO PAST MEDICAL HISTORY Diagnosis Date Diastolic dysfunction, left ventricle 07/28/2014 06/13/2014 echocardiogram. Essential hypertension, benign Hallux valgus (acquired) 12/20/2010 Menopause SHANNON (obstructive sleep apnea) 08/01/14 Severe. 08/01/14 [facility] PSG with AHI 29.4-30.5. Corrected with 16 cm CPA with humidification. Poor balance 03/03/2013 Post-menopausal 09/09/2011 Sciatica of left side 03/14/2014 Due to lumbar spondylosis/stenosis. Type II or unspecified type diabetes mellitus without mention of complication, not stated as uncontrolled Unspecified asthma(493.90) Current Outpatient Medications Medication Sig metoprolol succinate ER (TOPROL XL) 100 mg Take 100 mg by mouth once daily. Gauze Bandage (CURITY PLAIN PACKING STRIP) / X 5 -yard bndg Apply 1 application to affected area once daily. insulin 70/30 NPH/regular units/mL (NOVOLIN 70/30) 50 units sc at breakfast, 55 units at lunch, 82 units at supper. (Patient taking differently: 70/90 units depending on sugars ) potassium chloride ER (K-DUR, KLOR-CON) 20 mEq tablet Take 1 tablet by mouth once daily. losartan (COZAAR) 100 mg tablet Take 1 tablet by mouth once daily. insulin needles, DISPOSABLE, (PEN NEEDLE) 31 X 08/06 [facility] [place] use as directed ASPIRIN 81 MG TAB Take one (1) tablet daily . REQUIP 4 MG TAB Take 1 tablet at bedtime as needed DULoxetine (CYMBALTA) 20 mg capsule Take 20 mg by mouth once daily. (Patient not taking: Reported on 08/01/2021 ) citalopram (CELEXA) 20 mg tablet Take 40 mg by mouth. (Patient not taking: Reported on 08/01/2021 ) oxyCODONE-acetaminophen (PERCOCET 10) 10-325 mg tablet Take 1 tablet by mouth as needed. (Patient not taking: Reported on 08/01/2021) gabapentin (NEURONTIN) 800 mg tablet Take 1 tablet by mouth four times daily. (Patient not taking: Reported on 08/01/2021) No current facility-administered medications for this visit. ALLERGIES Allergen Reactions Ambien [Zolpidem Ta* Other: See Comments Sleep walking Cats Itching, Shortness of Breath, Other: See Comments Stuffy nose, itching in mouth Codeine Itching Dogs Itching, Shortness of Breath, Other: See Comments Stuffy nose, itching in mouth Latex Rash, Itching Pravastatin Myalgia Seasonal Allergies Itching, Other: See Comments Runny nose/eyes, sneezing Objective: Patient presents to clinic ambulating in diabetic shoe and wheelchair Vasc: DP and PT pulses are palpable bilateral. CFT is less than 3 seconds bilateral. Skin temperature is warm to warm proximal to distal bilateral. There is edema or varicosities noted. Ha2ir growth diminished. Neuro: Protective sensation is diminished to the foot and toes when tested with the 5.07 SWM bilateral. Vibratory sensation is diminished at the MPJ bilateral. Significant neurological defecits. Derm: Inspection and palpation performed. Nails 1-5 R and 1-3,5 L are discolored-yellow, thick, crumbly, dystrophic and with subungal debris. Skin is of normal turgor and texture. Hyperkeratosis not seen. NO ulcerations, scars, verruca or other lesions noted. Ortho: Digital deformities include hammertoes and bunions L 4th digital amputation. Assessment: Onychocryptosis (primary encounter diagnosis) Onychomycosis Pain in toe of left foot Pain in toe of right foot History of amputation of lesser toe of left foot (hcc) Type 2 diabetes mellitus with diabetic polyneuropathy, with long-term current use of insulin ([facility]) Comprehensive diabetic foot examination, type 2 dm, encounter for ([facility]) Plan: 1. Patient was seen and evaluated. 2. Nails 1-5 bilateral were debrided in length and thickness. 3. Patient is to RTC in 3 months DFE updated Amrit Butler DPM, DABPM, FACFAS Pager: [phone] [facility] [place] [facility] and [facility] locations documented in this encounter [facility] documented as of this encounter (statuses as of 07/12/2021) [facility] History of Past illness Narrative* Problem Noted Date Resolved Date Hypokalemia 06/28/2015 07/03/2016 Sciatica of left side 03/14/2014 07/03/2016 Overview: Due to lumbar spondylosis/stenosis. Poor balance 03/03/2013 07/03/2016 Ulcer of other part of foot 05/09/201008/22 Type II or unspecified type diabetes mellitus with neurological manifestations, uncontrolled(250.62) 05/08/201008/22 documented as of this encounter (statuses as of 08/02/2021) [facility] History of Past illness Narrative* Problem Noted Date Resolved Date Hypokalemia 06/28/2015 07/03/2016 Sciatica of left side 03/14/2014 07/03/2016 Overview: Due to lumbar spondylosis/stenosis. Poor balance 03/03/2013 07/03/2016 Ulcer of other part of foot 05/09/201008/22 Type II or unspecified type diabetes mellitus with neurological manifestations, uncontrolled(250.62) 05/08/201008/22 documented as of this encounter (statuses as of 11/15/2021) [facility] History of Past illness Narrative* Problem Noted Date Resolved Date Hypokalemia 06/28/2015 07/03/2016 Sciatica of left side 03/14/2014 07/03/2016 Overview: Due to lumbar spondylosis/stenosis. Poor balance 03/03/2013 07/03/2016 Ulcer of other part of foot 05/09/201008/22 Type II or unspecified type diabetes mellitus with neurological manifestations, uncontrolled(250.62) 05/08/201008/22 documented as of this encounter (statuses as of 01/18/2022) [facility] History of Past illness Narrative* Problem Noted Date Resolved Date Hypokalemia 06/28/2015 07/03/2016 Sciatica of left side 03/14/2014 07/03/2016 Overview: Due to lumbar spondylosis/stenosis. Poor balance 03/03/2013 07/03/2016 Ulcer of other part of foot 05/09/201008/22 Type II or unspecified type diabetes mellitus with neurological manifestations, uncontrolled(250.62) 05/08/201008/22 documented as of this encounter (statuses as of 01/22/2022) [place] [id number] History of Past illness Narrative* Problem Noted Date Resolved Date Hypokalemia 06/28/2015 07/03/2016 Sciatica of left side 03/14/2014 07/03/2016 Overview: Due to lumbar spondylosis/stenosis. Poor balance 03/03/2013 07/03/2016 Ulcer of other part of foot 05/09/201008/22 Type II or unspecified type diabetes mellitus with neurological manifestations, uncontrolled(250.62) 05/08/201008/22 documented as of this encounter (statuses as of 02/21/2022) [facility] History of Past illness Narrative* Problem Noted Date Resolved Date Hypokalemia 06/28/2015 07/03/2016 Sciatica of left side 03/14/2014 07/03/2016 Overview: Due to lumbar spondylosis/stenosis. Poor balance 03/03/2013 07/03/2016 Ulcer of other part of foot 05/09/201008/22 Type II or unspecified type diabetes mellitus with neurological manifestations, uncontrolled(250.62) 05/08/201008/22 documented as of this encounter (statuses as of 05/23/2022) [facility] History of Past illness Narrative* Problem Noted Date Resolved Date Hypokalemia 06/28/2015 07/03/2016 Sciatica of left side 03/14/2014 07/03/2016 Overview: Due to lumbar spondylosis/stenosis. Poor balance 03/03/2013 07/03/2016 Ulcer of other part of foot 05/09/201008/22 Type II or unspecified type diabetes mellitus with neurological manifestations, uncontrolled(250.62) 05/08/201008/22 documented as of this encounter (statuses as of 07/23/2022) [facility] History of Past illness Narrative* Problem Noted Date Resolved Date Hypokalemia 06/28/2015 07/03/2016 Sciatica of left side 03/14/2014 07/03/2016 Overview: Due to lumbar spondylosis/stenosis. Poor balance 03/03/2013 07/03/2016 Ulcer of other part of foot 05/09/201008/22 Type II or unspecified type diabetes mellitus with neurological manifestations, uncontrolled(250.62) 05/08/201008/22 documented as of this encounter (statuses as of 08/29/2022) [facility] History of Past illness Narrative* Problem Noted Date Diagnosed Date Resolved Date Hypokalemia 06/28/2015 07/03/2016 Sciatica of left side 03/14/20142016 Overview: Due to lumbar spondylosis/stenosis. Poor balance 03/03/2013 07/03/2016 Ulcer of other part of foot 05/09/2010 09/09/2012 Type II or unspecified type diabetes mellitus with neurological manifestations, uncontrolled(250.62) 05/08/2010 09/09/2012 documented as of this encounter (statuses as of 10/02/2022) [facility] History of Past illness Narrative* Problem Noted Date Diagnosed Date Resolved Date Hypokalemia 06/28/2015 07/03/2016 Sciatica of left side 03/14/20142016 Overview: Due to lumbar spondylosis/stenosis. Poor balance 03/03/2013 07/03/2016 Ulcer of other part of foot 05/09/2010 09/09/2012 Type II or unspecified type diabetes mellitus with neurological manifestations, uncontrolled(250.62) 05/08/2010 09/09/2012 documented as of this encounter (statuses as of 11/14/2022) [facility] History of Past illness Narrative* Problem Noted Date Diagnosed Date Resolved Date Hypokalemia 06/28/2015 07/03/2016 Sciatica of left side 03/14/20142016 Overview: Due to lumbar spondylosis/stenosis. Poor balance 03/03/2013 07/03/2016 Ulcer of other part of foot 05/09/2010 09/09/2012 Type II or unspecified type diabetes mellitus with neurological manifestations, uncontrolled(250.62) 05/08/2010 09/09/2012 documented as of this encounter (statuses as of 01/02/2023) [facility] Onychocryptosis- Primary Ingrowing nail Onychomycosis Dermatophytosis of nail Pain in toe of left foot Pain in limb Pain in toe of right foot Pain in limb History of amputation of lesser toe of left foot (HCC) Type 2 diabetes mellitus with diabetic polyneuropathy, with long-term current use of insulin ([facility]) Comprehensive diabetic foot examination, type 2 DM, encounter for ([facility]) Type II or unspecified type diabetes mellitus without mention of complication, not stated as uncontrolled [facility] History of amputation of lesser toe of left foot ([facility])- Primary Type 2 diabetes mellitus with diabetic polyneuropathy, with long-term current use of insulin ([facility]) Comprehensive diabetic foot examination, type 2 DM, encounter for ([facility]) Type II or unspecified type diabetes mellitus without mention of complication, not stated as uncontrolled Hammer toes of both feet Pes planus of both feet Bilateral bunions Bunion Onychocryptosis Ingrowing nail Onychomycosis Dermatophytosis of nail Pain in toe of left foot Pain in limb Pain in toe of right foot Pain in limb [facility] Diagnosis Dysuria- Primary Cely rash of groin Other candidiasis of other specified sites Recurrent UTI (urinary tract infection) Urinary tract infection, site not specified [facility] Diagnosis Onychocryptosis- Primary Ingrowing nail Onychomycosis Dermatophytosis of nail Pain in toe of left foot Pain in limb Pain in toe of right foot Pain in limb History of amputation of lesser toe of left foot ([facility]) Type 2 diabetes mellitus with diabetic polyneuropathy, with long-term current use of insulin ([facility]) Ulcer of toe of left foot, with fat layer exposed ([facility]) [facility] Diagnosis Onychocryptosis- Primary Ingrowing nail Onychomycosis Dermatophytosis of nail Pain in toe of left foot Pain in limb Pain in toe of right foot Pain in limb History of amputation of lesser toe of left foot ([facility]) Type 2 diabetes mellitus with diabetic polyneuropathy, with long-term current use of insulin ([facility]) Ulcer of toe of left foot, with fat layer exposed ([facility]) [facility] Diagnosis Burning with urination- Primary Dysuria [facility] Diagnosis Onychocryptosis- Primary Ingrowing nail Onychomycosis Dermatophytosis of nail Pain in toe of left foot Pain in limb Pain in toe of right foot Pain in limb History of amputation of lesser toe of left foot (HCC) Type 2 diabetes mellitus with diabetic polyneuropathy, with long-term current use of insulin (HCC) Ulcer of toe of left foot, with fat layer exposed (HCC) Morbid obesity (HCC) Morbid obesity [facility] Diagnosis Onychocryptosis- Primary Ingrowing nail Pain in toe of left foot Pain in limb Pain in toe of right foot Pain in limb History of amputation of lesser toe of left foot (HCC) Callus of foot Corns and callosities Diabetic mononeuropathy associated with diabetes mellitus due to underlying condition (HCC) Acquired hallux valgus of left foot Hallux valgus (acquired) Hammer toes of both feet [facility] Diagnosis Onychocryptosis- Primary Ingrowing nail Pain in toe of left foot Pain in limb Pain in toe of right foot Pain in limb History of amputation of lesser toe of left foot (HCC) Diabetic mononeuropathy associated with diabetes mellitus due to underlying condition (HCC) Cervical myelopathy (HCC) Cervical spondylosis with myelopathy [facility] Diagnostic Procedure Only (Routine) - Closed Specialty Diagnoses / Procedures Referred By Contfaheem t Referred To Contact XR IMAGING Diagnoses Acquired hallux valgus of left foot Hammer toes of both feet Procedures XR FOOT GENERAL 3V AP/LAT/OBL LEFT RADEX FOOT COMPLETE MINIMUM 3 VIEWS Mercedes Byrnes [address] [place] [address] [place] [address] Referral ID Status Reason Start Date Expiration Date V isits Requested Visits Authorized [id number] Closed Auto-Generate d Referral 11/13/2022 12/13/2023 1 1 [facility] Summary Purpose Family History No Family History Records FoundNo Family History Records FoundNo Family History Records FoundNo Family History Records FoundNo Family History Records Found Advance Directives No Advanced Directives Records FoundDocuments on File Type Date Recorded Patient Business English Instructor Expl anation Advance Directive(s) 08/12/2018 10:43 AM Advance Directive(s) 10/28/2017 1:49 PM Advance Directive(s) 09/27/2016 12:26 PM Additional Source Comments INFORMATION SOURCE (unrecogn ized section and content) DATE CREATED AUTHOR AUTHOR'S ORGANIZ ATION 08/28/2018 [facility] DATE CREATED AUTHOR AUTHOR'S ORGANIZ ATION 08/13/[address] [facility] ([place]) DATE CREATED AUTHOR AUTHOR'S ORGANIZ ATION 07/17/2021 [facility] [place] DATE CREATED AUTHOR AUTHOR'S ORGANIZ ATION 04/15/2023 [facility] Source Comments (unrecognize d section and content) In the event this informatio n is protected by the Federal Confidentiality of Alcohol and Drug Abuse Patient Records regulations: The Federal rules restrict any use of the information to criminally investigate or prosecute any alcohol or drug abuse patient.[facility] the event this information is protected by the Federal Confidentiality of Alcohol and Drug Abuse Patient Records regulations: The Federal rules restrict any use of the information to criminally investigate or prosecute any alcohol or drug abuse patient.[facility] the event this information is protected by the Federal Confidentiality of Alcohol and Drug Abuse Patient Records regulations: The Federal rules restrict any use of the information to criminally investigate or prosecute any alcohol or drug abuse patient.[facility] the event this information is protected by the Federal Confidentiality of Alcohol and Drug Abuse Patient Records regulations: The Federal rules restrict any use of the information to criminally investigate or prosecute any alcohol or drug abuse patient.[facility] the event this information is protected by the Federal Confidentiality of Alcohol and Drug Abuse Patient Records regulations: The Federal rules restrict any use of the information to criminally investigate or prosecute any alcohol or drug abuse patient.[facility] the event this information is protected by the Federal Confidentiality of Alcohol and Drug Abuse Patient Records regulations: The Federal rules restrict any use of the information to criminally investigate or prosecute any alcohol or drug abuse patient.[facility] Hospital[facility] the event this information is protected by the Federal Confidentiality of Alcohol and Drug Abuse Patient Records regulations: The Federal rules restrict any use of the information to criminally investigate or prosecute any alcohol or drug abuse patient.[facility] the event this information is protected by the Federal Confidentiality of Alcohol and Drug Abuse Patient Records regulations: The Federal rules restrict any use of the information to criminally investigate or prosecute any alcohol or drug abuse patient.[facility] the event this information is protected by the Federal Confidentiality of Alcohol and Drug Abuse Patient Records regulations: The Federal rules restrict any use of the information to criminally investigate or prosecute any alcohol or drug abuse patient.[facility] Hospital[facility] the event this information is protected by the Federal Confidentiality of Alcohol and Drug Abuse Patient Records regulations: The Federal rules restrict any use of the information to criminally investigate or prosecute any alcohol or drug abuse patient.[facility] Hospital[facility] the event this information is protected by the Federal Confidentiality of Alcohol and Drug Abuse Patient Records regulations: The Federal rules restrict any use of the information to criminally investigate or prosecute any alcohol or drug abuse patient.[facility] Hospital[facility] the event this information is protected by the Federal Confidentiality of Alcohol and Drug Abuse Patient Records regulations: The Federal rules restrict any use of the information to criminally investigate or prosecute any alcohol or drug abuse patient.[facility] Care Teams (unrecognized sec tion and content) 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 Relationship Specialty Start Date End Date BillyFrederick motley DO PCP - General Family Practice 07/19/14 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 Relationship Specialty Start Date End Date BillyFrederick motley DO PCP - General Family Medicine 07/19/14 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 Relationship Specialty Start Date End Date Frederick Cervantes Catia DO PCP - General Family Medicine 07/19/14 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 Relationship Specialty Start Date End Date Frederick Cervantes DO PCP - General Family Medicine 07/19/14 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 Relationship Specialty Start Date End Date Frederick Cervantes DO PCP - General Family Medicine 07/19/14 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 Relationship Specialty Start Date End Date Frederick Cervantes DO PCP - General Family Medicine 07/19/14 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 Relationship Specialty Start Date End Date Frederick Cervantes DO PCP - General Family Medicine 07/19/14 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 Relationship Specialty Start Date End Date Frederick Cervantes DO PCP - General Family Medicine 07/19/14 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 Relationship Specialty Start Date End Date Frederick Cervantes DO PCP - General Family Medicine 07/19/14 Reason for Visit (unrecogniz ed section and content) Reason Comments Follow Up DFC Reason Comments Rash Rash under waist, ge nitals and working it's way up-also on inside of thighs x 3-4 weeks Reason Comments Results Reason Comments Follow Up Reason Comments Follow Up Pain Numbness Reason Comments UTI Low back pain, burni ng with urination x2 weeks Reason Comments Appointment Reason Comments New Foot Deformity Reason Comments Established Patient Diabetic Foot Care Specialty Diagnoses / Procedures Referred By Contact Referred To Contact [facility] Diagnoses Diabetic foot care Procedures Diabetic foot care Frederick Cervantes DO [address] [place] [address] [facility] [address] [place] [id number] Referral ID Status Reason Start Date Expiration Date Visits Requested Visits Authorized [id number] Outside PCP OON/Self Pay Override 12/12/2022 06/10/2023 1 1 FOR RECORDS PERTAINING TO PATIENTS WHO ARE OR HAVE BEEN ENROLLED IN A CHEMICAL DEPENDENCY/SUBSTANCEABUSE PROGRAM, SOME INFORMATION MAY BE OMITTED. This clinical summary was aggregated from multiple sources. Caution should be exercised in using it in the provision of clinical care. This summary normalizes information from multiple sources, and as a consequence, information in this document may materially change the coding, format and clinical context of patient data. In addition, data may be omitted in some cases. CLINICAL DECISIONS SHOULD BE BASED ON THE PRIMARY CLINICAL RECORDS. [facility] [employer] [facility]. provides no warranty or guarantee of the accuracy or completeness of information in this document.
[2023-04-24 20:52] LABS: Absolute Lymphocyte Count 1.45 X10^3/uL (0.83-4.51); Absolute Neutrophil Count 8.8 X10^3/uL (2.0-7.7); Basophil# 0.04 X10^3/uL; Basophil% 0.4 % (0-1); Eosinophil# 0.04 X10^3/uL; Eosinophils% 0.4 % (0-5); Hematocrit 43.6 % (37-47); Hemoglobin 14.5 g/dL (12.0-15.0); Lymphocyte # 1.45 X10^3/ul (0.83-4.51); Mean Corp Hgb Conc 33.3 g/dL (32-36); Mean Corpuscular Hgb 29.4 pg (27.0-32.0); Mean Corpuscular Volume 88.4 fL (81-99); Mean Platelet Vol. 8.9 fl (6.2-12.0); Monocyte# 0.78 X10^3/uL; NRBC Flagged by Analyzer 0 % (0-5); Neutrophil # 8.77 X10^3/uL (2.7-7.7); Neutrophil % 78.4 % (47-70); Platelet Count 340 K/mm3 (150-450); RBC Distribution Width CV 12.6 % (11.6-14.6); Red Blood Count 4.93 M/mm3 (4.2-5.4); White Blood Count 11.2 K/mm3 (4.4-11.0)
[2023-04-24] MEDS: 0.9% Normal Saline (1000mL) 1,000 ML 1000 ML IV (20:56)
[2023-04-24] MEDS: Ondansetron 4 MG/2 ML Vial IV (20:56)
--- NOTE | 2023-04-24 21:00 | RAD_ITS ---
EXAM: XR CHEST, 1 VIEW CLINICAL INDICATION: shortness of breath TECHNIQUE: Frontal view of the chest. COMPARISON: April 05, 2022. FINDINGS: LUNGS AND PLEURAL SPACES: Unremarkable. No consolidation or edema. No pneumothorax. No effusion. HEART: Unremarkable. Cardiac silhouette not enlarged. MEDIASTINUM: Central airways and mediastinal contour are unremarkable. BONES/JOINTS: Moderate osteoarthrosis of the left glenohumeral joint. No acute fracture. SOFT TISSUES: Unremarkable. VASCULATURE: Atherosclerotic calcifications of the nonenlarged thoracic aorta. Degenerative changes of the spine. RAD/Chest 1 View (Portable) IMPRESSION: No acute disease. Electronically Signed: Bk Ley MD at 21:26 EST ,
[2023-04-24 21:18] LABS: ALB/GLOB Ratio 0.9 RATIO (0.9-2.4); AST(SGOT) 16 U/L (15-37); Alanine Aminotransfer ALT/SGPT 20 U/L (13-56); Albumin, Serum 3.7 g/dL (3.2-5.0); Alkaline Phosphatase 65 U/L (45-117); Anion Gap 9 (5-15); BUN 21 mg/dL (7-18); BUN/Creat Ratio 16.9 RATIO (10-20); Calcium,Total 9.7 mg/dL (8.5-10.1); Chloride 97 mmol/L (98-107); Creatinine, Serum 1.24 mg/dL (0.55-1.02); EST Glomerular Filtration Rate 45 mL/min (>60); Est Glom Filt Rate - Afr Amer 55 mL/min (>60); Globulin 4.3 g/dL (2.2-4.2); Glucose 261 mg/dL (74-106); Lipase 24 U/L (13-75); Potassium 3.5 mmol/L (3.5-5.1); Sodium Level 131 mmol/L (136-145)
[2023-04-24 22:04] LABS: Mucous, Urine 0 SEEN /hpf (<or=2+)
[2023-04-24 22:20] LABS: Color, Urine Yellow (Yellow); Glucose, Dipstick 100 mg/dl (Normal); Ketone-Dipstick 15 mg/dl (Negative); Leukocyte Esterase-Dipstick 100 /ul (Negative); Nitrite-Dipstick Positive (Negative); Occult Blood-Urine 50 /ul (Negative); Protein-Dipstick 100 mg/dl (Negative); Urine Clarity Sl. Cloudy (Clear); Urine Urobilinogen 1 mg/dl (Normal)
[2023-04-24 22:22] LABS: Urine Bilirubin Dipstick 1 mg/dL (Negative)
[2023-04-24 22:30] LABS: Bacteria 2+ /hpf (None Seen); Squamous Epithelial Cells - UA 0-5 SEEN /hpf (5-10); White Blood Cells 10-25 SEEN /hpf (0-5)
[2023-04-24 22:31] LABS: Red Blood Cells-Urine 0-5 SEEN /hpf (0-5)
[2023-04-24 22:37] VITALS: PULSE 85; RESP 26; O2SAT 95
[2023-04-24] MEDS: Nitrofurantoin Macrocrystals 100 MG Capsule PO (23:26)
[2023-04-24 23:27] VITALS: BP 145/73; PULSE 81; RESP 26; O2SAT 93
== END 2023-04-24 23:40 | disposition home or self-care (01) ==
PROVIDERS: Nurse Practitioner; Emergency Provider Emergency Medicine; PCP Family Medicine; Visit Provider Emergency Medicine
DX: K52.9 Noninfective gastroenteritis and colitis, unspecified (principal); J44.9 Chronic obstructive pulmonary disease, unspecified; I11.0 Hypertensive heart disease with heart failure; I50.32 Chronic diastolic (congestive) heart failure; E11.65 Type 2 diabetes mellitus with hyperglycemia; Z79.4 Long term (current) use of insulin; E86.0 Dehydration; N39.0 Urinary tract infection, site not specified; I25.10 Atherosclerotic heart disease of native coronary artery without angina pectoris; Z11.52 Encounter for screening for COVID-19; E78.5 Hyperlipidemia, unspecified; E66.9 Obesity, unspecified; Z79.82 Long term (current) use of aspirin; Z79.899 Other long term (current) drug therapy
CPT/HCPCS: 71045; 80053; 81001; 83690; 85025; 87077; 87086; 87088; 87186; 87631; 96361; 96374; 99283; J7030; A4216; J2405

== ENCOUNTER → 2023-05-15 | Outpatient (CLI) | payer MEDICARE, SELFPAY ==
--- OUTSIDE RECORDS SUMMARY | 2023-05-15 14:03 | XMS RPT_ITS | CCD ---
Author Name Unknown Address [id number] [facility] [place] [address] Organization [facility] Care Team Providers Care Piano And Organ Refinisher Name Role Phone Eden Escalante LPN Unavailable Unavailable Eden Escalante LPN Unavailable Unavailable HOOD, MARIA J Unavailable Unavailable MOODISPAWKTAE Unavailable Unavailable BILLY, FREDERICK A Unavailable Unavailable [...] Billy DO, Frederick A Primary Care Provider [facility] Elmer DO, Frederick A Primary Care Provider Billy [...] [LATEX] allergy to substance 0 Rash, Itching [facility] Work Phone: (2 sources) zolpidem Drug Allergy 5 Sleep walking and talking [facility] Work Phone: (13 sources) Cat; Translations: [CATS] Allergy to substance 6 Itching, Shortness of Breath, Other: See Comments [facility] (13 sources) Codeine; Translations: [CODEINE] Drug Allergy 9 Itching [facility] (13 sources) Dog; Translations: [DOGS] Allergy to substance 6 Itching, Shortness of Breath, Other: See Comments [facility] (13 sources) Pravastatin; Translations: [PRAVASTATIN] Drug Allergy 9 Myalgia [facility] (13 sources) Seasonal allergy; Translations: [SEASONAL ALLERGIES] Allergy to substance 4 Itching, Other: See Comments [facility] (13 sources) zolpidem; Translations: [ZOLPIDEM TARTRATE] Drug Allergy 9 Other: See Comments [facility] Medications Current Medications Medication Drug Class(es) Dates [...] mouth as needed for pain HYDROCODONE-ACETAM INOPHEN [id number] Frederick Cervantes DO acetaminophen 325 mg / oxyCODONE hydrochloride 10 mg oral tablet (20 sources) Opioid Agonist Start: 05-01-2015 End: 10-16-2016 take 1 tablet by mouth every six hours as needed for pain OXYCODONE-ACETAMIN OPHEN 10-325 MG TABS One tablet by mouth evvery 6 hours as needed for severe pain OXYCODONE-ACETAMIN OPHEN [id number] Frederick Cervantes DO Problems Active Problems Problem [...] 8 Unclassified (1 source) New Patient / [id number]() Onset: 8 Urinary tract infections (1 source) [...] temperature 98.29 [degF] Osiel RAVI Work Phone: [facility] 07-22-2022 15:03-0400 Body weight 124.1 kg Osiel RAVI Work Phone: [facility] 07-22-2022 15:03-0400 Diastolic blood pressure 82 mm[Hg] Osiel Reynosogg PA Work Phone: [facility] 07-22-2022 15:03-0400 Heart rate 69 /min Krislyn Aberegg PA Work Phone: [facility] 07-22-2022 15:03-0400 Respiratory rate 26 /min Krislyn Aberegg PA Work Phone: [facility] 07-22-2022 15:03-0400 SaO2% (BldA) [Mass fraction] 94 % Krislyn Aberegg PA Work Phone: [facility] 07-22-2022 15:03-0400 Systolic blood pressure 140 mm[Hg] Krislyn Aberegg PA Work Phone: [facility] 01-18-2022 14:47-0400 Body temperature 98.4 [degF] Heather Owens SMOKING TOBACCO PACKING MACHINE HAND.ENVIRONMENTAL HEALTH SAFETY MANAGER Work Phone: [facility] 01-18-2022 14:47-0400 Body weight 115.67 kg Heather Owens SMOKING TOBACCO PACKING MACHINE HAND.ENVIRONMENTAL HEALTH SAFETY MANAGER Work Phone: [facility] 01-18-2022 14:47-0400 Diastolic blood pressure 72 mm[Hg] Heather Owens SMOKING TOBACCO PACKING MACHINE HAND.ENVIRONMENTAL HEALTH SAFETY MANAGER Work Phone: [facility] 01-18-2022 14:47-0400 Heart rate 68 /min Heather Owens SMOKING TOBACCO PACKING MACHINE HAND.ENVIRONMENTAL HEALTH SAFETY MANAGER Work Phone: [facility] 01-18-2022 14:47-0400 Respiratory rate 18 /min Heather Owens SMOKING TOBACCO PACKING MACHINE HAND.ENVIRONMENTAL HEALTH SAFETY MANAGER Work Phone: [facility] 01-18-2022 14:47-0400 SaO2% (BldA) [Mass fraction] 97 % Heather Owens SMOKING TOBACCO PACKING MACHINE HAND.ENVIRONMENTAL HEALTH SAFETY MANAGER Work Phone: [facility] 01-18-2022 14:47-0400 Systolic blood pressure 136 mm[Hg] Heather Owens SMOKING TOBACCO PACKING MACHINE HAND.ENVIRONMENTAL HEALTH SAFETY MANAGER Work Phone: [facility] 01-14-2017 09:10-0400 BMI (Body Mass Index) 41.32 kg/m2 Eden Escalante LPN [facility] Work Phone: 01-14-2017 09:10-0400 BP [...] Provider Facility Start: 04-11-2023 End: 04-11-2023 ambulatory [facility] Facility:[facility] Start: 04-11-2023 End: 04-11-2023 ambulatory [facility] Facility:[facility] Start: 04-03-2023 End: 04-03-2023 [facility] Start: 01-01-2023 End: 01-01-2023 ambulatory [facility] Facility:[facility] Start: 01-01-2023 [...] et rgnt auto w/o microscopy Heather Owens SMOKING TOBACCO PACKING MACHINE HAND.NIKUNJ Work Phone: Start: 08-10-2018 Antibody screen Plan of Treatment Date Care Activity Detail Author Start: 08-30-2023 3 comp foot exam completed DIABETIC FOOT EXAM [facility] Start: 11-22-2022 Covid-19 Vaccine ( season) Covid-19 Vaccine ( season) [facility] Start: 11-22-2022 Influenza vaccination [facility] Start: 08-01-2022 3 comp foot exam completed DIABETIC FOOT EXAM [facility] Start: 03-24-2022 ADVANCE DIRECTIVE DISCUSSION ADVANCE DIRECTIVE DISCUSSION [facility] Start: 03-24-2022 DEPRESSION ASSESSMENT DEPRESSION ASS ESSMENT [facility] Start: 01-18-2022 End: 03-20-2022 Bacteria identified in Urine by Culture [facility] Work Phone: Immunizations Immunization Date Immunization Notes Care Provider Tiffani melgar 12-31-2021 influenza virus vacc ine, unspecified formulation Mercedes Byrnes Work Phone: [facility] 01-23-2008 pneumococcal polysaccharide vaccine, 23 valent [facility] Provider [facility] Work Phone: Payers Date Payer Category Payer Medicare HUMANA MEDICARE HUMANA GOLD PLUS [id number] 2020-Present [phone] [address] [address] [place] [address] O [id number] 2020 Medicare HUMANA MEDICARE HUMANA GOLD PLUS [id number] 2020-Present [phone] [address] [address] [place] [address] O [id number] 2020 Private Health Insurance [id number] 2016 Unknown [id number] Social History Date Type Detail Facility Start: 08-02-2014 End: 01-18-2022 Tobacco smoking status NHIS Ex-smoker [facility] Start: 1978 End: 1985 History of tobacco use Current smoker [facility] Start: 1978 End: 1985 History of tobacco use Cigarette Smoker [facility] Start: 09-06-2020 End: 01-01-2023 Alcohol intake Current drinker of alcohol (finding) [facility] Start: 05-21-2010 History SDOH Alcohol Comment Occasional [facility] Start: 06-10-2014 Tobacco Comment smoked sociall y-on the weekends 1-2 [facility] Start: 1950 Sex Assigned At Not on file [facility] Start: 08-02-2014 End: 08-28-2022 Cigarettes smoked current (pack per day) - Reported 0.1 [facility] Start: 08-02-2014 End: 01-18-2022 Tobacco use and exposure Smokeless tobacco non-user [facility] Work Phone: Start: 11-04-2021 End: 02-20-2022 Exposure to SARS-CoV-2 (event) Not sure [facility] Start: 01-18-2022 Tobacco Comment Smoked sociall y, on the weekends 1-2. Parents smoked in childhood home. Ex-spouse was a smoker. [facility] Start: 07-22-2022 End: 08-28-2022 Tobacco use panel [facility] National Score (1-10 0), lower number is lower risk 99 [facility] Medical Equipment Procedure Code Equipment Code Equipment Origin al Text Equipment Identifier Dates Apply 1 applicat ion to affected area once daily. Start: 10-17-2017 Clinical Notes 06-28-2015 to 04-14-2023 Mercedes Byrnes - 01/01/2023 1:28 PM EDTSmitCheyenne cunha LPN - 01/01/2023 1:19 PM EDTPatient InstructionsPatient InstructionsMercedes Byrnes - 11/13/2022 2:57 PM EDT Note Date & Type Note Facility 04-14-2023 Note HNO ID: [id number] Author: MERCEDES BYRNES, ? Service: ? Author [...] (obstructive sleep apnea) 08/01/14 Severe. 08/01/14 [facility] PSG with AHI 29.4-30.5. Corrected with 16 [...] sooner if problems arise Mercedes Byrnes DPM [facility] 04-11-2023 Note HNO ID: [id number] Author: CHEYENNE SÁNCHEZ LPN Service: ? Author Type: LICENSED NURSE Type: Progress Notes Filed: 04/14/2023 12:44 Note Text: AMB ROOMING INTAKE FLOWSHEET DATA Patient presents with: Left Foot - Established Patient, Numbness Right Foot - Established Patient, Numbness Cheyenne Sánchez LPN [facility] 04-03-2023 Note HNO ID: [id number] Author: STEPHANIE SEGURA RT(Agata) Service: Radiology Author [...] RT Richard(R) April 03, 2023 2:20 PM [facility] 04-03-2023 Note HNO ID: [id number] Author: MERCEDES BYRNES, ? Service: ? Author [...] RTC in 2 weeks. Mercedes Byrnes DPM [facility] 04-03-2023 Note HNO ID: [id number] Author: CHEYENNE SÁNCHEZ LPN Service: ? Author [...] Diabetic Foot Care, Pain Cheyenne Sánchez LPN [facility] 01-01-2023 Note HNO ID: [id number] Author: Mercedes Byrnes Service: ? Author Type: [...] amputation of lesser toe of left foot ([facility]) (E08.41) Diabetic mononeuropathy associated with diabetes mellitus due to underlying condition ([facility]) Callus hammertoe Plan: Patient was [...] RTC in 3-4 months. Mercedes Byrnes DPM [facility] 01-01-2023 Note HNO ID: [id number] Author: Cheyenne Sánchez LPN Service: ? Author Type: LICENSED NURSE Type: Progress Notes Filed: 01/01/2023 11:07 PM Note Text: AMB ROOMING INTAKE FLOWSHEET DATA Patient presents with: Left Foot - Established Patient, Diabetic Foot Care Right Foot - Established Patient, Diabetic Foot Care Cheyenne Sánchez LPN [facility] 01-01-2023 History of Presen t illness Narrative [...] Cheyenne Sánchez LPN documented in this encounter [facility] 01-01-2023 Instructions Mercedes Byrnes - 01/01/2023 1:28 [...] (or decreased sensation in your feet) a dispatcher radio should always cut your toenails. Be Careful [...] Go to your health care provider or dispatcher radio to treat these conditions. documented in this encounter [facility] 11-13-2022 Note HNO ID: [id number] Author: Stephanie Segura RT(R) Service: Radiology Author [...] Segura, RT(R) November 13, 2022 3:27 PM [facility] 11-13-2022 Note HNO ID: [id number] Author: Mercedes Byrnes Service: ? Author Type: [...] (obstructive sleep apnea) 08/01/14 Severe. 08/01/14 [facility] PSG with AHI 29.4-30.5. Corrected with 16 [...] no apparent distress. (more content not included)... [facility] 11-13-2022 Note HNO ID: [id number] Author: Cheyenne Sánchez LPN Service: ? Author Type: LICENSED NURSE Type: Progress Notes Filed: 11/13/2022 11:14 PM Note Text: AMB ROOMING INTAKE FLOWSHEET DATA Patient presents with: Left Foot - New, Foot Deformity Right Foot - New, Foot Deformity Cheyenne Sánchez LPN [facility] 11-13-2022 Instructions Mercedes Byrnes - 11/13/2022 3:11 [...] (or decreased sensation in your feet) a dispatcher radio should always cut your toenails. Be Careful [...] Go to your health care provider or dispatcher radio to treat these conditions. documented in this encounter [facility] 11-13-2022 History of Presen t illness Narrative [...] (obstructive sleep apnea) 08/01/14 Severe. 08/01/14 [facility] PSG with AHI 29.4-30.5. Corrected with 16 [...] amputation of lesser toe of left foot ([facility]) (L84) Callus of foot (E08.41) [...] Cheyenne Sánchez LPN documented in this encounter [facility] 10-02-2022 Miscellaneous Notes Called lvm asking pt to call back in and r/s appt from 12/11. Dr Butler will not be in the office that afternoon. documented in this encounter [facility] 08-29-2022 Note HNO ID: [id number] Author: Amrit Butler DPM Service: ? Author [...] (obstructive sleep apnea) 08/01/14 Severe. 08/01/14 [facility] PSG with AHI 29.4-30.5. Corrected with 16 [...] amputation of lesser toe of left foot ([facility]) Type 2 diabetes mellitus with diabetic polyneuropathy, with long-term current use of insulin ([facility]) Ulcer of toe of left foot, with fat layer exposed ([facility]) Q7 class findings Plan: 1. Patient was seen and evaluated. 2. Nails 1-9 bilateral were debrided in length and thickness. 3. Sharp excisional debridement through the level of subcutaneous tissue was achieved at location L 3rd toe. All devitilized tissues were removed. Active bleeding (more content not included)... [facility] 08-29-2022 History of Presen t illness Narrative [...] (obstructive sleep apnea) 08/01/14 Severe. 08/01/14 [facility] PSG with AHI 29.4-30.5. Corrected with 16 [...] amputation of lesser toe of left foot ([facility]) Type 2 diabetes mellitus with diabetic polyneuropathy, with long-term current use of insulin ([facility]) Ulcer of toe of left foot, with fat layer exposed ([facility]) Q7 class findings Plan: 1. Patient was [...] visit. Amrit Butler DPM, DABPM, FACFAS Pager: [phone] [facility] and [facility] locations documented in this encounter [facility] 07-22-2022 Note HNO ID: [id number] Author: BREONNA Davis Service: ? Author Type: Physician Collision Center Manager Type: Progress Notes Filed: 07/22/2022 3:15 [...] (obstructive sleep apnea) 08/01/14 Severe. 08/01/14 [facility] PSG with AHI 29.4-30.5. Corrected with 16 [...] UA DIP, URIN (more content not included)... [facility] 07-22-2022 History of Presen t illness Narrative This note was created using [email or web address]. Subjective Wilda White is a 72 year [...] (obstructive sleep apnea) 08/01/14 Severe. 08/01/14 [facility] PSG with AHI 29.4-30.5. Corrected with 16 [...] evaluation. BREONNA Davis documented in this encounter [facility] 05-22-2022 Note HNO ID: [id number] Author: Amrit Butler DPM Service: ? Author [...] (obstructive sleep apnea) 08/01/14 Severe. 08/01/14 [facility] PSG with AHI 29.4-30.5. Corrected with 16 [...] utilizing sharp di (more content not included)... [facility] 05-22-2022 History of Presen t illness Narrative [...] (obstructive sleep apnea) 08/01/14 Severe. 08/01/14 [facility] PSG with AHI 29.4-30.5. Corrected with 16 [...] DISPOSABLE, (PEN NEEDLE) 31 X 5/16 [facility] [place] use as directed ASPIRIN 81 MG [...] amputation of lesser toe of left foot ([facility]) Type 2 diabetes mellitus with diabetic polyneuropathy, with long-term current use of insulin ([facility]) Ulcer of toe of left foot, with fat layer exposed ([facility]) Q7 class findings Plan: 1. Patient was [...] visit. Amrit Butler DPM, DABPM, FACFAS Pager: [phone] [facility] and [facility] locations documented in this encounter [facility] 02-21-2022 History of Presen t illness Narrative [...] (obstructive sleep apnea) 08/01/14 Severe. 08/01/14 [facility] PSG with AHI 29.4-30.5. Corrected with 16 [...] visit. Amrit Butler DPM, DABPM, FACFAS Pager: [phone] [facility] documented in this encounter [facility] 01-22-2022 Miscellaneous Notes Patient given results and verbalized understanding of instructions given. Madalyn Artis Please inform patient that the urine culture revealed bacterial growth. The antibiotic picked looks to be appropriate for treatment. The fungal culture did not reveal growth at 3 days. We will call if that changes. Please follow up with PCP documented in this encounter [facility] 01-18-2022 History of Presen t illness Narrative [...] history is provided by the patient. No medical language specialist was used. Rash This is a recurrent [...] (obstructive sleep apnea) 08/01/14 Severe. 08/01/14 [facility] PSG with AHI 29.4-30.5. Corrected with 16 [...] she cannot recall the date she saw [facility] Elmer Youmiam reveals 11/23/21, but unable to see treatment [...] she cannot recall the date she saw Billy Youmiam reveals 11/23/21, but unable to see treatment completely - UA positive for sandy esterase and nitrates - Send urine for culture - Begin treatment with keflex - Patient education for prevention given - GLUCOSE, BLOOD (POC) - UA DIP, URINE (POC) - URINE CULTURE - URINE CULTURE Heather Owens APRN.ENVIRONMENTAL HEALTH SAFETY MANAGER documented in this encounter [facility] 11-15-2021 History of Presen t illness Narrative [...] (obstructive sleep apnea) 08/01/14 Severe. 08/01/14 [facility] PSG with AHI 29.4-30.5. Corrected with 16 [...] months Amrit Butler DPM, DABPM, FACFAS Pager: [phone] [facility] and [facility] locations documented in this encounter [facility] 08-02-2021 History of Presen t illness Narrative [...] (obstructive sleep apnea) 08/01/14 Severe. 08/01/14 [facility] PSG with AHI 29.4-30.5. Corrected with 16 [...] DISPOSABLE, (PEN NEEDLE) 31 X 08/06 [facility] [place] use as directed ASPIRIN 81 MG [...] polyneuropathy, with long-term current use of insulin ([facility]) Comprehensive diabetic foot examination, type 2 dm, encounter for ([facility]) Plan: 1. Patient was seen and evaluated. 2. Nails 1-5 bilateral were debrided in length and thickness. 3. Patient is to RTC in 3 months DFE updated Amrit Butler DPM, DABPM, FACFAS Pager: [phone] [facility] and [facility] locations documented in this encounter [facility] documented as of this encounter (statuses as of 07/12/2021) [facility] History of Past illness Narrative* Problem Noted Date Resolved Date Hypokalemia 06/28/2015 07/03/2016 Sciatica of left side 03/14/2014 07/03/2016 Overview: Due to lumbar spondylosis/stenosis. Poor balance 03/03/2013 07/03/2016 Ulcer of other part of foot 05/09/201008/22 Type II or unspecified type diabetes mellitus with neurological manifestations, uncontrolled(250.62) 05/08/201008/22 documented as of this encounter (statuses as of 08/02/2021) [facility] History of Past illness Narrative* Problem Noted Date Resolved Date Hypokalemia 06/28/2015 07/03/2016 Sciatica of left side 03/14/2014 07/03/2016 Overview: Due to lumbar spondylosis/stenosis. Poor balance 03/03/2013 07/03/2016 Ulcer of other part of foot 05/09/201008/22 Type II or unspecified type diabetes mellitus with neurological manifestations, uncontrolled(250.62) 05/08/201008/22 documented as of this encounter (statuses as of 11/15/2021) [facility] History of Past illness Narrative* Problem Noted Date Resolved Date Hypokalemia 06/28/2015 07/03/2016 Sciatica of left side 03/14/2014 07/03/2016 Overview: Due to lumbar spondylosis/stenosis. Poor balance 03/03/2013 07/03/2016 Ulcer of other part of foot 05/09/201008/22 Type II or unspecified type diabetes mellitus with neurological manifestations, uncontrolled(250.62) 05/08/201008/22 documented as of this encounter (statuses as of 01/18/2022) [facility] History of Past illness Narrative* Problem Noted Date Resolved Date Hypokalemia 06/28/2015 07/03/2016 Sciatica of left side 03/14/2014 07/03/2016 Overview: Due to lumbar spondylosis/stenosis. Poor balance 03/03/2013 07/03/2016 Ulcer of other part of foot 05/09/201008/22 Type II or unspecified type diabetes mellitus with neurological manifestations, uncontrolled(250.62) 05/08/201008/22 documented as of this encounter (statuses as of 01/22/2022) [place] [address]-06-2016 History of Past illness Narrative* Problem Noted Date Resolved Date Hypokalemia 06/28/2015 07/03/2016 Sciatica of left side 03/14/2014 07/03/2016 Overview: Due to lumbar spondylosis/stenosis. Poor balance 03/03/2013 07/03/2016 Ulcer of other part of foot 05/09/201008/22 Type II or unspecified type diabetes mellitus with neurological manifestations, uncontrolled(250.62) 05/08/201008/22 documented as of this encounter (statuses as of 02/21/2022) [facility] History of Past illness Narrative* Problem Noted Date Resolved Date Hypokalemia 06/28/2015 07/03/2016 Sciatica of left side 03/14/2014 07/03/2016 Overview: Due to lumbar spondylosis/stenosis. Poor balance 03/03/2013 07/03/2016 Ulcer of other part of foot 05/09/201008/22 Type II or unspecified type diabetes mellitus with neurological manifestations, uncontrolled(250.62) 05/08/201008/22 documented as of this encounter (statuses as of 05/23/2022) [facility] History of Past illness Narrative* Problem Noted Date Resolved Date Hypokalemia 06/28/2015 07/03/2016 Sciatica of left side 03/14/2014 07/03/2016 Overview: Due to lumbar spondylosis/stenosis. Poor balance 03/03/2013 07/03/2016 Ulcer of other part of foot 05/09/201008/22 Type II or unspecified type diabetes mellitus with neurological manifestations, uncontrolled(250.62) 05/08/201008/22 documented as of this encounter (statuses as of 07/23/2022) [facility] History of Past illness Narrative* Problem Noted Date Resolved Date Hypokalemia 06/28/2015 07/03/2016 Sciatica of left side 03/14/2014 07/03/2016 Overview: Due to lumbar spondylosis/stenosis. Poor balance 03/03/2013 07/03/2016 Ulcer of other part of foot 05/09/201008/22 Type II or unspecified type diabetes mellitus with neurological manifestations, uncontrolled(250.62) 05/08/201008/22 documented as of this encounter (statuses as of 08/29/2022) [facility] History of Past illness Narrative* Problem Noted Date Diagnosed Date Resolved Date Hypokalemia 06/28/2015 07/03/2016 Sciatica of left side 03/14/20142016 Overview: Due to lumbar spondylosis/stenosis. Poor balance 03/03/2013 07/03/2016 Ulcer of other part of foot 05/09/2010 09/09/2012 Type II or unspecified type diabetes mellitus with neurological manifestations, uncontrolled(250.62) 05/08/2010 09/09/2012 documented as of this encounter (statuses as of 10/02/2022) [facility] History of Past illness Narrative* Problem Noted Date Diagnosed Date Resolved Date Hypokalemia 06/28/2015 07/03/2016 Sciatica of left side 03/14/20142016 Overview: Due to lumbar spondylosis/stenosis. Poor balance 03/03/2013 07/03/2016 Ulcer of other part of foot 05/09/2010 09/09/2012 Type II or unspecified type diabetes mellitus with neurological manifestations, uncontrolled(250.62) 05/08/2010 09/09/2012 documented as of this encounter (statuses as of 11/14/2022) [facility] History of Past illness Narrative* Problem Noted [...] polyneuropathy, with long-term current use of insulin ([facility]) Comprehensive diabetic foot examination, type 2 DM, encounter for ([facility]) Type II or unspecified type diabetes mellitus without mention of complication, not stated as uncontrolled [facility] History of amputation of lesser toe of left foot ([facility])- Primary Type 2 diabetes mellitus with diabetic polyneuropathy, with long-term current use of insulin ([facility]) Comprehensive diabetic foot examination, type 2 DM, encounter for ([facility]) Type II or unspecified type diabetes mellitus without mention of complication, not stated as uncontrolled Hammer toes of both feet Pes planus of both feet Bilateral bunions Bunion Onychocryptosis Ingrowing nail Onychomycosis Dermatophytosis of nail Pain in toe of left foot Pain in limb Pain in toe of right foot Pain in limb [facility] Dysuria- Primary Cely rash [...] amputation of lesser toe of left foot ([facility]) Type 2 diabetes mellitus with diabetic polyneuropathy, with long-term current use of insulin ([facility]) Ulcer of toe of left foot, with fat layer exposed ([facility]) [facility] Diagnosis Onychocryptosis- Primary Ingrowing nail Onychomycosis Dermatophytosis of nail Pain in toe of left foot Pain in limb Pain in toe of right foot Pain in limb History of amputation of lesser toe of left foot ([facility]) Type 2 diabetes mellitus with diabetic polyneuropathy, with long-term current use of insulin ([facility]) Ulcer of toe of left foot, with fat layer exposed ([facility]) [facility] Diagnosis Burning with urination- Primary Dysuria [facility] Onychocryptosis- Primary Ingrowing nail Onychomycosis [...] (HCC) Morbid obesity [facility] Diagnosis Onychocryptosis- Primary Ingrowing nail Pain [...] of both feet [facility] Diagnosis Onychocryptosis- Primary Ingrowing nail Pain in toe of left foot Pain in limb Pain in toe of right foot Pain in limb History of amputation of lesser toe of left foot (HCC) Diabetic mononeuropathy associated with diabetes mellitus due to underlying condition (HCC) Cervical myelopathy (HCC) Cervical spondylosis with myelopathy [facility] Diagnostic Procedure Only (Routine) - Closed Specialty Diagnoses / Procedures Referred By Contfaheem t Referred To Contact XR IMAGING Diagnoses Acquired hallux valgus of left foot Hammer toes of both feet Procedures XR FOOT GENERAL 3V AP/LAT/OBL LEFT RADEX FOOT COMPLETE MINIMUM 3 VIEWS Mercedes Byrnes [address] [place] [address] [place] [address] Referral ID Status Reason Start Date Expiration Date V isits Requested Visits Authorized [id number] Closed Auto-Generate d Referral 11/13/2022 12/13/2023 1 1 [facility] Summary Purpose Family History No Family History Records FoundNo Family History Records FoundNo Family History Records FoundNo Family History Records FoundNo Family History Records Found Advance Directives No Advanced Directives Records FoundDocuments on File Type Date Recorded Patient Bankruptcy Attorney Expl anation Advance Directive(s) 08/12/2018 10:43 AM Advance Directive(s) 10/28/2017 1:49 PM Advance Directive(s) 09/27/2016 12:26 PM Additional Source Comments INFORMATION SOURCE (unrecogn ized section and content) DATE CREATED AUTHOR AUTHOR'S ORGANIZ ATION 08/28/2018 [facility] DATE CREATED AUTHOR AUTHOR'S ORGANIZ ATION 08/13/2019 [facility] ([place]) DATE CREATED AUTHOR AUTHOR'S ORGANIZ ATION 07/17/2021 [facility] [place] DATE CREATED AUTHOR AUTHOR'S ORGANIZ ATION 04/15/2023 [facility] Source Comments (unrecognize d section and content) In the event this informatio n is protected by the Federal Confidentiality of Alcohol and Drug Abuse Patient Records regulations: The Federal rules restrict any use of the information to criminally investigate or prosecute any alcohol or drug abuse patient.[facility] the event this information is protected by the Federal Confidentiality of Alcohol and Drug Abuse Patient Records regulations: The Federal rules restrict any use of the information to criminally investigate or prosecute any alcohol or drug abuse patient.[facility] System[facility] the event this information is protected by the Federal Confidentiality of Alcohol and Drug Abuse Patient Records regulations: The Federal rules restrict any use of the information to criminally investigate or prosecute any alcohol or drug abuse patient.[facility] System[facility] the event this information is protected by the Federal Confidentiality of Alcohol and Drug Abuse Patient Records regulations: The Federal rules restrict any use of the information to criminally investigate or prosecute any alcohol or drug abuse patient.[facility] System[facility] the event this information is protected by the Federal Confidentiality of Alcohol and Drug Abuse Patient Records regulations: The Federal rules restrict any use of the information to criminally investigate or prosecute any alcohol or drug abuse patient.[facility] System[facility] the event this information is protected by the Federal Confidentiality of Alcohol and Drug Abuse Patient Records regulations: The Federal rules restrict any use of the information to criminally investigate or prosecute any alcohol or drug abuse patient.[facility] System[facility] the event this information is protected by the Federal Confidentiality of Alcohol and Drug Abuse Patient Records regulations: The Federal rules restrict any use of the information to criminally investigate or prosecute any alcohol or drug abuse patient.[facility] the event this information is protected by the Federal Confidentiality of Alcohol and Drug Abuse Patient Records regulations: The Federal rules restrict any use of the information to criminally investigate or prosecute any alcohol or drug abuse patient.[facility] System[facility] the event this information is protected by the Federal Confidentiality of Alcohol and Drug Abuse Patient Records regulations: The Federal rules restrict any use of the information to criminally investigate or prosecute any alcohol or drug abuse patient.[facility] System[facility] the event this information is protected by the Federal Confidentiality of Alcohol and Drug Abuse Patient Records regulations: The Federal rules restrict any use of the information to criminally investigate or prosecute any alcohol or drug abuse patient.[facility] System[facility] the event this information is protected by the Federal Confidentiality of Alcohol and Drug Abuse Patient Records regulations: The Federal rules restrict any use of the information to criminally investigate or prosecute any alcohol or drug abuse patient.[facility] System[facility] the event this information is protected by the Federal Confidentiality of Alcohol and Drug Abuse Patient Records regulations: The Federal rules restrict any use of the information to criminally investigate or prosecute any alcohol or drug abuse patient.[facility] Care Teams (unrecognized sec tion and content) Piano [employer] Organ Refinisher Relationship Specialty Start Date End Date BillyFrederick motley DO PCP - General Family Practice 07/19/14 [employer] Refinisher Relationship Specialty Start Date End Date BillyFrederick motley DO PCP - General Family Medicine 07/19/14 Piano And Organ Refinisher Relationship Specialty Start Date End Date Frederick Cervantes Catia DO PCP - General Family Medicine 07/19/14 Piano And Organ Refinisher Relationship Specialty Start Date End Date Frederick Cervantes DO PCP - General Family Medicine 07/19/14 Piano And Organ Refinisher Relationship Specialty Start Date End Date Frederick Cervantes DO PCP - General Family Medicine 07/19/14 Piano And Organ Refinisher Relationship Specialty Start Date End Date Frederick Cervantes DO PCP - General Family Medicine 07/19/14 Piano And Organ Refinisher Relationship Specialty Start Date End Date Frederick Cervantes DO PCP - General Family Medicine 07/19/14 Piano And Organ Refinisher Relationship Specialty Start Date End Date Frederick Cervantes DO PCP - General Family Medicine 07/19/14 Piano And Organ Refinisher Relationship Specialty Start Date End Date Frederick [...] Procedures Referred By Contact Referred To Contact [facility] Diagnoses Diabetic foot care Procedures Diabetic foot care Frederick Cervantes DO [address] [place] [address] [facility] [address] [place] [id number] Referral ID Status Reason Start Date Expiration Date Visits Requested Visits Authorized [id number] Outside PCP OON/Self Pay Override 12/12/2022 06/10/2023 [...] BE BASED ON THE PRIMARY CLINICAL RECORDS. [facility] [employer] [facility]. provides no warranty or guarantee of the accuracy or completeness of information in this document.
[2023-05-15 14:28] LABS: Absolute Lymphocyte Count 1.26 X10^3/uL (0.83-4.51); Absolute Neutrophil Count 5.5 X10^3/uL (2.0-7.7); Basophil# 0.04 X10^3/uL; Basophil% 0.5 % (0-1); Eosinophil# 0.17 X10^3/uL; Eosinophils% 2.2 % (0-5); Hemoglobin 13.4 g/dL (12.0-15.0); Lymphocyte # 1.26 X10^3/ul (0.83-4.51); Lymphocyte % 16.4 % (19-41); Mean Corp Hgb Conc 31.2 g/dL (32-36); Mean Corpuscular Hgb 28.4 pg (27.0-32.0); Mean Corpuscular Volume 91.1 fL (81-99); Monocyte# 0.61 X10^3/uL; Monocyte% 7.9 % (0-10); NRBC Flagged by Analyzer 0 % (0-5); Neutrophil # 5.54 X10^3/uL (2.7-7.7); Neutrophil % 72.2 % (47-70); Platelet Count 341 K/mm3 (150-450); RBC Distribution Width CV 13.2 % (11.6-14.6); RBC Distribution Width SD 43.5 fl (35.1-43.9); Red Blood Count 4.72 M/mm3 (4.2-5.4); White Blood Count 7.7 K/mm3 (4.4-11.0)
[2023-05-15 14:59] LABS: ALB/GLOB Ratio 0.9 RATIO (0.9-2.4); AST(SGOT) 27 U/L (15-37); Alanine Aminotransfer ALT/SGPT 45 U/L (13-56); Albumin, Serum 3.5 g/dL (3.2-5.0); Alkaline Phosphatase 60 U/L (45-117); Anion Gap 5 (5-15); BUN 22 mg/dL (7-18); BUN/Creat Ratio 15.9 RATIO (10-20); Calcium,Total 9.7 mg/dL (8.5-10.1); Chloride 106 mmol/L (98-107); Creatinine, Serum 1.38 mg/dL (0.55-1.02); EST Glomerular Filtration Rate 40 mL/min (>60); Est Glom Filt Rate - Afr Amer 48 mL/min (>60); Globulin 4.1 g/dL (2.2-4.2); Glucose 190 mg/dL (74-106); Lipase 35 U/L (13-75); Protein, Total 7.6 g/dL (6.4-8.2); Sodium Level 139 mmol/L (136-145)
[2023-05-16 15:30] LABS: Color, Urine Amber (Yellow); Glucose, Dipstick Normal (Normal); Ketone-Dipstick 5 mg/dl (Negative); Leukocyte Esterase-Dipstick 25 /ul (Negative); Nitrite-Dipstick Negative (Negative); Occult Blood-Urine 25 /ul (Negative); Protein-Dipstick 30 mg/dl (Negative); Urine Clarity Cloudy (Clear); Urine Urobilinogen 1 mg/dl (Normal)
[2023-05-16 16:36] LABS: Urine Bilirubin Dipstick 1 mg/dL (Negative)
== END | disposition home or self-care (01) ==
LOC: BFHLAB 13:07
PROVIDERS: PCP Family Medicine; Visit Provider Family Medicine
DX: R10.9 Unspecified abdominal pain (principal); N39.0 Urinary tract infection, site not specified
CPT/HCPCS: 36415; 80053; 81002; 83690; 85025; 87040; 87086; 87088

== ENCOUNTER 2023-06-04 12:17 | Emergency (ER) | payer MEDICARE, SELFPAY ==
[2023-06-04 12:23] VITALS: BP 148/105; PULSE 85; RESP 17; TEMP 36.7; O2SAT 93; BMI 42.7
[2023-06-04 12:26] VITALS: BP 148/115
--- NOTE | 2023-06-04 12:34 | EKG12_ITS ---
Test Reason : SOB Blood Pressure : / mmHG Vent. Rate : 081 BPM Atrial Rate : 081 BPM P-R Int : 208 ms QRS Dur : 076 ms QT Int : 410 ms P-R-T Axes : 000 -26 017 degrees QTc Int : 476 ms Normal sinus rhythm Normal ECG Confirmed by Mele Gilbert ([id number]), news assignment editor AYDIN POWELL ([id number]) on 06/06/2023 2:03:52 PM Referred By: Confirmed By:Mele Gilbert
--- NOTE | 2023-06-04 12:34 | EX.ED.VIS.UR ---
HPI HPI - URI History of Present Illness Chief Complaint: Cough Informant: patient Onset/Context/Timing Onset: Weeks Context: Gradual Onset Timing: Continuous Current Severity: Mild Maximum Severity: Mild Associated Symptoms Associated Symptoms: Positive for Shortness of Breath and Nonproductive cough; Negative for Chest Pain Narrative Narrative: 73 patient states she has been wheezing.-year-old female history of COPD on 3 L of oxygen at home as needed. Also history of diabetes, CHF and prior ME. States she is inoperative cough for about a month. Intermittent chills no fever. No chest pain or hemoptysis. No leg pain or swelling. She is out of her inhaler at home. She has a nebulizer but says it is too difficult for her to use it. Prior similar symptoms: Yes Recent Illness/Hospitalization: No ROS ROS ED ROS Narrative Nonproductive cough. Chills. Shortness of breath. No chest pain. No hemoptysis. No leg pain or swelling. Review of Systems ROS Unobtainable: Denies due to encephalopathy Constitutional Constitutional ED: Reports chills; Denies fever(s) Eyes Eyes: Denies blurry vision ENT ENT ED: Denies ear pain Cardiovascular Cardiovascular: Denies chest pain or palpitations Respiratory/Chest Respiratory/Chest: Reports cough and dyspnea Gastrointestinal Gastrointestinal: Denies abdominal pain, constipation, diarrhea, melena, nausea or vomiting Genitourinary Genitourinary ED: Denies dysuria or hematuria Musculoskeletal Musculoskeletal: Denies arthralgias Integumentary Denies abscess Neurologic Neurologic: Denies headache(s) Psychiatric Psychiatric: Denies anxiety or depression Endocrine Endocrinology: Denies cold intolerance or heat intolerance Hematologic/Lymphatic Hematologic/Lymphatic: Denies easy bleeding, easy bruising or lymphadenopathy Allergic/Immunologic Allergic/Immunologic ED: Denies mouth swelling, tongue swelling or urticaria [facility] Medical History (HFpEF) heart failure with preserved ejection fraction Abnormal echocardiogram Acute respiratory failure with hypoxia JILL (acute kidney injury) Anxiety and depression Arthritis Asthma Asthma Atherosclerosis of [place] coronary artery of [place] heart without angina pectoris Atrial septal defect Back pain Back pain Bacteremia Blackout Bladder disease Cardiology follow-up encounter Carpal tunnel syndrome Chronic bronchitis COPD (chronic obstructive pulmonary disease) COVID-19 determined by clinical diagnostic criteria CPAP (continuous positive airway pressure) dependence Cystitis, acute DDD (degenerative disc disease), cervical Dehydration Dehydration with hyponatremia Depression Diabetic peripheral neuropathy Dietary restriction Difficulty chewing Difficulty swallowing Disequilibrium DM (diabetes mellitus), type 2, uncontrolled DM (diabetes mellitus), type 2, uncontrolled Edema Essential hypertension Gastric reflux Gastroenteritis GERD (gastroesophageal reflux disease) History of CHF (congestive heart failure) History of echocardiogram (~01/2017) History of echocardiogram History of echocardiogram History of edema History of heart attack History of heart attack History of IBS History of nuclear stress test (~10/2016) History of pain when walking History of pressure injury of skin History of stress test History of stress test Hx of falling Hx of transesophageal echocardiography (MARIELLA) for monitoring Hyperlipidemia Hypertension Hypertension Hypertension Hypokalemia IBS (irritable bowel syndrome) Insomnia Insulin dependent diabetes mellitus Morbid obesity Non-smoker Obesity (BMI 35.0-39.9 without comorbidity) On home oxygen therapy SHANNON (obstructive sleep apnea) Pain Pulmonary emboli Pulmonary embolism Recurrent falls Restless leg syndrome Restless legs Seasonal allergies Sepsis Shortness of breath on exertion Shortness of breath on exertion Sleep apnea SOB (shortness of breath) Spinal stenosis of lumbar region Uses wheelchair Uses wheelchair Vitamin D deficiency Walker as ambulation aid Wears dentures Wears glasses Home Medications ropinirole 4 mg tablet 4 mg PO BID RLS 02/23/13 [History Last Taken 12/25/20 06:00] losartan 100 mg tablet 100 mg PO QHS BP 02/28/17 [History Last Taken 03/24/17] isosorbide mononitrate 30 mg tablet,extended release 24 hr 30 mg PO DAILY BP #90 tabs 10/11/19 [Rx Last Taken 12/25/20 06:00] acetaminophen 500 mg tablet 1,000 mg PO Q6H PRN Pain Score 1-5/10 07/06/20 [History Last Taken Unknown] aspirin 81 mg tablet,delayed release (Adult Low Dose Aspirin) 81 mg PO DAILY heart health 07/06/20 [History Last Taken Unknown] citalopram 40 mg tablet 40 mg PO QHS 07/06/20 [History Last Taken Unknown] omeprazole 40 mg capsule,delayed release 40 mg PO DAILY 07/06/20 [History Last Taken 12/25/20 06:00] hydrochlorothiazide 25 mg tablet 25 mg PO DAILY 11/09/21 [History Last Taken Unknown] metoprolol succinate 100 mg tablet,extended release 24 hr 100 mg PO DAILY 11/09/21 [History Last Taken Unknown] potassium chloride 20 mEq tablet,extended release 20 meq PO DAILY 11/09/21 [History Last Taken Unknown] insulin human U-100 NPH-regulr 70-30 mix 100 unit/mL subcutaneous susp 80 unit subcut QAM 03/26/22 [History Last Taken Unknown] insulin human U-100 NPH-regulr 70-30 mix 100 unit/mL subcutaneous susp 80 unit subcut QPM 03/26/22 [History Last Taken Unknown] albuterol sulfate 2.5 mg/3 mL (0.083 %) solution for nebulization 2.5 mg (3 mL) inhalation Q4H PRN shortness of breath or wheezing #180 mL 05/16/22 [Rx Last Taken Unknown] albuterol sulfate 90 mcg/actuation aerosol inhaler (ProAir HFA) 2 puff inhalation Q6H PRN shortness of breath or wheezing #18 grams 06/12/22 [Rx Last Taken Unknown] amlodipine 5 mg tablet 5 mg PO DAILY #30 tabs 07/29/22 [Rx Last Taken Unknown] clonidine HCl 0.1 mg tablet 0.1 mg PO BID 07/29/22 [History Last Taken Unknown] ezetimibe 10 mg tablet (Zetia) 10 mg PO DAILY #90 tabs 07/29/22 [Rx Last Taken Unknown] pregabalin 50 mg capsule 100 mg PO BID 02/11/23 [History Last Taken Unknown] hydralazine 25 mg tablet 25 mg PO BID #60 tabs 02/27/23 [Rx Last Taken Unknown] nitrofurantoin monohydrate/macrocrystals 100 mg capsule 100 mg PO Q12 #10 CAPSULES 04/24/23 [Rx Last Taken Unknown] promethazine 25 mg tablet 25 mg PO Q6H PRN PRN Nausea #12 TABLETS 04/24/23 [Rx Last Taken Unknown] ciprofloxacin HCl 500 mg tablet 500 mg PO BID 7 days #14 TABLETS 04/27/23 [Rx Last Taken Unknown] albuterol sulfate 90 mcg/actuation breath activated powder inhaler 1 inh inhalation Q4H PRN shortness of breath or wheezing #1 ea 06/04/23 [Rx Last Taken Unknown] prednisone 20 mg tablet 40 mg (2 x 20 mg) PO DAILY COPD 10 days #20 tabs 06/04/23 [Rx Last Taken Unknown] Allergy/AdvReac Type Severity Reaction Status Date / Time rivaroxaban [From Xarelto] Allergy Intermediate Itching Verified 06/04/23 12:25 Environmental Allergies: Allergy PT UNABLE Verified 06/04/23 12:25 Uncoded TO RESPOND-NEEDS F/U latex Allergy Itching Verified 06/04/23 12:25 pravastatin Allergy Unknown Verified 06/04/23 12:25 codeine AdvReac Severe Itching Verified 06/04/23 12:25 zolpidem [From Ambien] AdvReac Severe Sleep Verified 06/04/23 12:25 walking/talking Family History Father Heart disease Hypertension CAD (coronary artery disease) Arthritis Mother Hypertension Asthma Diabetes Heart disease COPD (chronic obstructive pulmonary disease) Surgical History History of appendectomy History of back surgery (~2018) History of cardiac catheterization History of carpal tunnel surgery of left wrist History of carpal tunnel surgery of left wrist History of carpal tunnel surgery of right wrist History of cholecystectomy (~09/2011) History of laminectomy (~07/2015) History of laparoscopic cholecystectomy History of umbilical hernia repair (~08/2012) Hx of left cataract extraction Hx of right cataract extraction sciatic nerve cauterization Social History Smoking Status: Never smoker second hand exposure: No alcohol intake: current alcohol intake frequency: holidays/special occasions only Alcohol type: beer and hard liquor substance use type: does not use caffeine: Yes Type: coffee Number of servings: 1 and tea what type of physical activity do you participate in: other details: physical therapy frequency: 1-2 times per week seatbelt use: always do you feel safe at home: Yes EXAM Physical Exam Narrative Exam Narrative: 73-year-old female vital signs stable on 2 L she is 93%. Temperature 98 degrees. H EENT exam moist mucous membranes. Pupils round react to light. No facial droop. Neck nontender. No JVD. No lymphadenopathy. Lungs expiratory expiratory wheezing bilateral. Equal symmetrical. Prolonged Tory phase. Heart regular rhythm rate about 85 no murmur. Chest wall ribs nontender. Abdomen soft nontender. Moving all 4 extremities. Calves are nontender without edema or cords. Neurologically she is awake and alert. Answering questions and following commands. Const Vital Signs: 06/04/23 12:23 06/04/23 12:26 06/04/23 12:55 Temperature 98.0 F Temperature Source Temporal Pulse Rate 85 Respiratory Rate 17 Respiratory Effort Respiratory Depth Respiratory Pattern Blood Pressure 148/105 H 148/115 H Blood Pressure Mean 119 126 Pulse Ox 93 93 Oxygen Delivery Method Nasal Cannula Nasal Cannula Oxygen Flow Rate (L/min) 2 2 06/04/23 12:55 06/04/23 13:02 06/04/23 13:26 Temperature Temperature Source Pulse Rate 84 87 Respiratory Rate 21 H 22 H Respiratory Effort Short of Breath Respiratory Depth Normal Respiratory Pattern Normal Blood Pressure 160/69 H Blood Pressure Mean 99 Pulse Ox 92 Oxygen Delivery Method Nasal Cannula Oxygen Flow Rate (L/min) 2 06/04/23 14:00 Temperature Temperature Source Pulse Rate 95 Respiratory Rate 22 H Respiratory Effort Respiratory Depth Respiratory Pattern Blood Pressure 184/78 H Blood Pressure Mean 113 Pulse Ox 94 Oxygen Delivery Method Oxygen Flow Rate (L/min) Positive well nourished, well developed and obese; Negative for cachectic or contractures General Appearance ED: well developed and NAD; Negative for cachectic, contractures, cyanotic or diaphoretic Nutritional Appearance: obese; Negative for cachectic HEENT Reports moist mucous membranes; Denies dry mucous membranes normocephalic and atraumatic Face and Sinus: Negative for sinus tenderness or maxillary instability Mouth ED: No dry mucous membranes Mouth: No dry mucous membranes Throat: posterior oropharynx normal; Negative for tonsils abnormal Eyes PERRL and EOMs intact bilaterally General Eye ED: Negative for pale conjunctiva or scleral icterus Neck no lymphadenopathy, supple, no meningeal signs and no JVD General: Negative for anterior neck swelling or lymphadenopathy Resp No normal respiratory effort and No clear to auscultation bilaterally Resp Narrative: Prolonged expiratory phase. Inspiratory and expiratory wheezes. Effort and Inspection: Negative for retractions Auscultation: wheezes; Negative for rales or rhonchi Cardio S1 normal heart sound, S2 normal heart sound and no murmurs Rate: regular rate Rhythm: regular rhythm GI non-tender, non-distended and no masses Inspection: Negative for abdominal distention Auscultation: normoactive bowel sounds Palpation: soft; Negative for tender or guarding Back/Spine no CVA tenderness and normal ROM General Back: Negative for CVA tenderness Cervical Spine: Negative for cervical spine tenderness Thoracic Spine / Upper Back: Negative for thoracic spinal tenderness Lumbar Spine / Lower Back: Negative for lumbar spinal tenderness Sacrum: Negative for tenderness Extremity normal to inspection and full ROM General Extremety ED: Negative for cyanosis or tenderness General Extremity: Negative for cyanosis Neuro oriented x3 and CN's II-XII intact bilaterally Sensorium / Orientation: alert, oriented to person, oriented to place and oriented to time; Negative for orientation impaired, lethargic or stuporous Motor Exam: strength 5/5 throughout Psych mental status grossly normal Appearance: Negative for other Attitude: No agitated Mood & Affect: Negative for depressed, anxious or tearful Skin General Skin Exam: Negative for jaundice Lesions: no lesions Rashes: no rashes Trauma: Negative for abrasion or laceration MDM MDM MDM Narrative Medical decision making narrative: Patient with a nonproductive cough and shortness of breath for a month. Suspect COPD. May or may not be a viral syndrome. Rule out pneumonia. Patient I discussed with her symptoms being 4+ weeks it would not be very beneficial to do a COVID and flu swab. She is comfortable with that. She will be treated with DuoNeb and albuterol aerosols. Oral prednisone 60 mg. Chest x-ray and labs are pending. Repeat exam patient doing well at 2:40 PM. Wheezing resolved after the aerosols and steroids. We went over her chest x-ray, EKG and labs. She knows to follow-up with her primary care physician. She has appointment next week. I explained her kidney function that her creatinine was elevated. She will be placed on prednisone 40 mg a day for 10 days. Inhaler. Outpatient follow-up which is scheduled for next week. History & Record Review Discussion w/independent historian: Patient and Family Additional record(s) reviewed:: Prior inpatient record, Prior outpatient record, Prior ED visit and Prior labs Lab Data Attestation: I reviewed the patient's lab results. Lab results narrative: CBC white count of 6. H&H 12.8 and 39. Platelets 221. Electrolytes show potassium 3.4. Gap 7. BUN 17 creatinine 2.0. Glucose 175. Labs: Laboratory Results - last 24 hr 06/04/23 12:40 WBC 6.9 RBC 4.42 Hgb 12.8 Hct 39.3 MCV 88.9 MCH 29.0 MCHC 32.6 RDW Std Deviation 44.5 H RDW Coeff of Mitzy 13.7 Plt Count 221 MPV 9.6 Immature Gran % (Auto) 2.000 H Neut % (Auto) 76.0 H Lymph % (Auto) 11.7 L [place] % (Auto) 7.8 Eos % (Auto) 1.9 Baso % (Auto) 0.6 Absolute Neuts (auto) 5.3 Absolute Lymphs (auto) 0.81 L Nucleated RBC % 0 Sodium 137 Potassium 3.4 L Chloride 101 Carbon Dioxide 29.0 Anion Gap 7 BUN 17 Creatinine 2.00 H Estim Creat Clear Calc 31.30 Est GFR (MDRD) Af Amer 32 L Est GFR (MDRD) Non-Af 26 L BUN/Creatinine Ratio 8.5 L Glucose 175 H Calcium 8.3 L Radiography Chest X-Ray - ED: 1 View, 2 View, Read by ED Physician, Read by Radiologist, Heart, Lungs, Mediastinum, Bony Structures, No Acute Disease and Chronic Changes Diagnostic Testing: Clinical Impression(s) from Imaging Studies Chest X-Ray 06/04/23 13:15 IMPRESSION: No acute pulmonary process, no interval change Electronically Signed: Kyle Kate MD at 13:42 EDT Reading Location ID and State: [facility] / [place] , Service support , Chest x-ray, 2 views, interpreted by myself and the radiologist shows no acute abnormality. Normal cardiac silhouette. Normal lung teresa. No pneumonia. No effusions. Rhythm Strip Rhythm Strip: Sinus Rhythm Rate: 81 Ectopy: None EKG Initial EKG: Attestation: I personally reviewed and interpreted this EKG as follows: Interpretation: Sinus Rhythm and No Acute Injury Pattern Comments: Normal sinus rhythm rate of 81 no acute signs of ME or ischemia. Discharge Plan Triage Chief Complaint: Cough ED Provider: Faisal Heredia Dx/Rx/DC Orders Clinical Impression: Acute renal insufficiency, History of CHF (congestive heart failure), Acute exacerbation of chronic obstructive pulmonary disease Instructions: ED COPD Flare Prescriptions: New prednisone 20 mg tablet 40 mg PO DAILY 10 Days Qty: 20 0RF albuterol sulfate 90 mcg/actuation aerosol powdr breath activated 1 inh inhalation Q4H PRN (Reason: shortness of breath or wheezing) Qty: 1 1RF Rx Instructions: 1 to 2 puffs every 2-4 hours as needed for wheezing or shortness of breath. No Action omeprazole 40 mg capsule,delayed release(DR/EC) 40 mg PO DAILY citalopram 40 mg tablet 40 mg PO QHS aspirin [Adult Low Dose Aspirin] 81 mg tablet,delayed release (DR/EC) 81 mg PO DAILY acetaminophen 500 mg tablet 1,000 mg PO Q6H PRN (Reason: Pain Score 1-5/10) albuterol sulfate 2.5 mg /3 mL (0.083 %) solution for nebulization 2.5 mg INHALATION Q4H PRN (Reason: shortness of breath or wheezing) Qty: 180 3RF insulin NPH and regular human 100 unit/mL (70-30) suspension 80 unit SC QAM Rx Instructions: Hold if glucose less than 130 mg/dl clonidine HCl 0.1 mg tablet 0.1 mg PO BID ezetimibe [Zetia] 10 mg tablet 10 mg PO DAILY Qty: 90 3RF amlodipine 5 mg tablet 5 mg PO DAILY Qty: 30 11RF ropinirole 4 MG tablet 4 mg PO BID Patient Comments: restless legs metoprolol succinate 100 mg tablet extended release 24 hr 100 mg PO DAILY hydrochlorothiazide 25 mg Tablet 25 mg PO DAILY potassium chloride 20 mEq Tablet Extended Release 20 meq PO DAILY insulin NPH and regular human 100 unit/mL (70-30) suspension 80 unit SC QPM Rx Instructions: Hold if glucose less than 130 mg/dl pregabalin 50 mg capsule 100 mg PO BID nitrofurantoin monohyd/m-cryst [nitrofurantoin monohyd/m-cryst] 100 mg capsule 100 mg PO Q12 Qty: 10 0RF promethazine [promethazine] 25 mg tablet 25 mg PO Q6H PRN PRN (Reason: Nausea) Qty: 12 0RF ciprofloxacin HCl 500 mg tablet 500 mg PO BID 7 Days Qty: 14 0RF losartan 100 mg tablet 100 mg PO QHS isosorbide mononitrate 30 mg tablet extended release 24 hr 30 mg PO DAILY Qty: 90 3RF albuterol sulfate [ProAir HFA] 90 mcg/actuation HFA aerosol inhaler 2 puff INHALATION Q6H PRN (Reason: shortness of breath or wheezing) Qty: 18 6RF hydralazine 25 mg tablet 25 mg PO BID Qty: 60 11RF Primary Care Provider: Kaz Cervantes Referrals: Kaz Cervantes, DO [Primary Care Provider] - As soon as possible (Keep your scheduled appointment.) Activity Restrictions/Additional Instructions: Prednisone 40 mg a day for the next 10 days starting tomorrow. We gave you a dose of steroid through your IV. Watch your blood sugars closely because this prednisone will increase your blood sugar. Proventil inhaler as needed for shortness of breath or wheezing. 2 puffs every 4 hours as needed. Follow-up with your doctor with your scheduled appointment next week. Return to the ER feeling a lot worse. When you follow-up with your doctor next week discussed with him your kidney function. Your kidney function is a little worse. Your creatinine today was 2.0. Disposition Disposition: Home, Self Care
[2023-06-04] MEDS: Ipratropium/Albuterol Sulfate 3 ML AMPUL.NEB INHALATION (12:45)
[2023-06-04] MEDS: Albuterol 2.5 MG/3 ML VIAL.NEB. INHALATION (12:45)
[2023-06-04 12:55] VITALS: PULSE 84; RESP 21; O2SAT 93
[2023-06-04 12:58] LABS: Absolute Lymphocyte Count 0.81 X10^3/uL (0.83-4.51); Absolute Neutrophil Count 5.3 X10^3/uL (2.0-7.7); Basophil# 0.04 X10^3/uL; Basophil% 0.6 % (0-1); Eosinophil# 0.13 X10^3/uL; Eosinophils% 1.9 % (0-5); Hematocrit 39.3 % (37-47); Hemoglobin 12.8 g/dL (12.0-15.0); Lymphocyte # 0.81 X10^3/ul (0.83-4.51); Lymphocyte % 11.7 % (19-41); Mean Corp Hgb Conc 32.6 g/dL (32-36); Mean Corpuscular Volume 88.9 fL (81-99); Mean Platelet Vol. 9.6 fl (6.2-12.0); Monocyte# 0.54 X10^3/uL; Monocyte% 7.8 % (0-10); NRBC Flagged by Analyzer 0 % (0-5); Neutrophil # 5.26 X10^3/uL (2.7-7.7); Platelet Count 221 K/mm3 (150-450); RBC Distribution Width CV 13.7 % (11.6-14.6); RBC Distribution Width SD 44.5 fl (35.1-43.9); Red Blood Count 4.42 M/mm3 (4.2-5.4); White Blood Count 6.9 K/mm3 (4.4-11.0)
[2023-06-04] MEDS: predniSONE 20 MG Tablet 60 MG PO (12:59)
[2023-06-04 13:10] LABS: Anion Gap 7 (5-15); BUN 17 mg/dL (7-18); BUN/Creat Ratio 8.5 RATIO (10-20); Calcium,Total 8.3 mg/dL (8.5-10.1); Chloride 101 mmol/L (98-107); EST Glomerular Filtration Rate 26 mL/min (>60); Est Glom Filt Rate - Afr Amer 32 mL/min (>60); Glucose 175 mg/dL (74-106); Potassium 3.4 mmol/L (3.5-5.1); Sodium Level 137 mmol/L (136-145)
--- NOTE | 2023-06-04 13:15 | RAD_ITS ---
STUDY: X-RAY CHEST REASON FOR EXAM: Female, 73 years old. cough TECHNIQUE: PA and lateral views of the chest. COMPARISON: 04/24/2023 FINDINGS: Stable appearance of EKG leads and neurostimulator catheter The lungs are clear and expanded. There is no demonstrated pleural abnormality. Normal size heart. Normal mediastinum and giig. Normal visualized pulmonary arteries. Normal visualized aortic arch and descending thoracic aorta. Extensive degenerative changes in the lower thoracic spine Normal visualized ribs, clavicles, and shoulders. There is no demonstrated abnormality of the visualized soft tissue structures of the upper abdomen. RAD/Chest PA and Lateral IMPRESSION: No acute pulmonary process, no interval change Electronically Signed: Kyle Kate MD at 13:42 EDT ,
[2023-06-04 13:26] VITALS: BP 160/69; PULSE 87; RESP 22; O2SAT 92
[2023-06-04 14:00] VITALS: BP 184/78; PULSE 95; RESP 22; O2SAT 94
[2023-06-04 14:50] VITALS: BP 184/78; PULSE 86; RESP 19; TEMP 36.4; O2SAT 90
== END 2023-06-04 15:03 | disposition home or self-care (01) ==
PROVIDERS: Emergency Provider Emergency Medicine; PCP Family Medicine; Visit Provider Emergency Medicine
DX: J44.1 Chronic obstructive pulmonary disease with (acute) exacerbation (principal); I11.0 Hypertensive heart disease with heart failure; I50.9 Heart failure, unspecified; E11.40 Type 2 diabetes mellitus with diabetic neuropathy, unspecified; E66.01 Morbid (severe) obesity due to excess calories; Z79.4 Long term (current) use of insulin; N28.9 Disorder of kidney and ureter, unspecified; F41.9 Anxiety disorder, unspecified; F32.A Depression, unspecified; I25.10 Atherosclerotic heart disease of native coronary artery without angina pectoris; E78.5 Hyperlipidemia, unspecified; K58.9 Irritable bowel syndrome, unspecified; G47.33 Obstructive sleep apnea (adult) (pediatric); G25.81 Restless legs syndrome; E55.9 Vitamin D deficiency, unspecified; I25.2 Old myocardial infarction; Z79.899 Other long term (current) drug therapy; Z79.82 Long term (current) use of aspirin; Z99.81 Dependence on supplemental oxygen; Z86.711 Personal history of pulmonary embolism
CPT/HCPCS: 71046; 80048; 85025; 93005; 94640; 99284

== ENCOUNTER → 2023-06-20 | Outpatient (CLI) | payer MEDICARE, SELFPAY ==
[2023-06-20 14:27] LABS: BNP,B-Type NATRIURETIC PEPTIDE 69.4 pg/mL (0-100)
[2023-06-20 14:30] LABS: Anion Gap 7 (5-15); BUN 12 mg/dL (7-18); BUN/Creat Ratio 8.6 RATIO (10-20); Calcium,Total 7.5 mg/dL (8.5-10.1); Chloride 101 mmol/L (98-107); EST Glomerular Filtration Rate 39 mL/min (>60); Est Glom Filt Rate - Afr Amer 48 mL/min (>60); Glucose 133 mg/dL (74-106); Potassium 3.8 mmol/L (3.5-5.1); Sodium Level 138 mmol/L (136-145)
== END | disposition home or self-care (01) ==
LOC: LAB 13:44
PROVIDERS: PCP Family Medicine; Visit Provider Family Medicine
DX: I10 Essential (primary) hypertension (principal); R06.00 Dyspnea, unspecified; R09.02 Hypoxemia
CPT/HCPCS: 36415; 80048; 83880

== ENCOUNTER → 2023-06-27 | Outpatient (CLI) | payer MEDICARE, SELFPAY ==
[2023-06-27 16:10] LABS: Anion Gap 7 (5-15); BUN 13 mg/dL (7-18); BUN/Creat Ratio 8.8 RATIO (10-20); Calcium,Total 7.6 mg/dL (8.5-10.1); Chloride 100 mmol/L (98-107); Creatinine, Serum 1.47 mg/dL (0.55-1.02); EST Glomerular Filtration Rate 37 mL/min (>60); Est Glom Filt Rate - Afr Amer 45 mL/min (>60); Glucose 216 mg/dL (74-106); Magnesium 0.9 mg/dL (1.6-2.6); Potassium 4.4 mmol/L (3.5-5.1); Sodium Level 137 mmol/L (136-145)
== END | disposition home or self-care (01) ==
LOC: BFHLAB 13:07
PROVIDERS: PCP Family Medicine; Visit Provider Family Medicine
DX: I10 Essential (primary) hypertension (principal); R25.2 Cramp and spasm
CPT/HCPCS: 36415; 80048; 83735

== ENCOUNTER → 2023-07-04 | Outpatient (CLI) | payer MEDICARE, SELFPAY ==
[2023-07-04 17:58] LABS: Anion Gap 7 (5-15); BUN 15 mg/dL (7-18); BUN/Creat Ratio 9.9 RATIO (10-20); Calcium,Total 8.1 mg/dL (8.5-10.1); Chloride 103 mmol/L (98-107); Creatinine, Serum 1.52 mg/dL (0.55-1.02); EST Glomerular Filtration Rate 36 mL/min (>60); Est Glom Filt Rate - Afr Amer 43 mL/min (>60); Glucose 124 mg/dL (74-106); Magnesium 1.2 mg/dL (1.6-2.6); Potassium 3.2 mmol/L (3.5-5.1); Sodium Level 139 mmol/L (136-145)
== END | disposition home or self-care (01) ==
LOC: BFHLAB 14:20
PROVIDERS: PCP Family Medicine; Visit Provider Family Medicine
DX: I10 Essential (primary) hypertension (principal); E61.2 Magnesium deficiency
CPT/HCPCS: 36415; 80048; 83735

== ENCOUNTER → 2023-07-07 | Outpatient (CLI) | payer MEDICARE, SELFPAY | END | disposition home or self-care (01) | LOC: SL 19:36 | PROVIDERS: PCP Family Medicine; Referring Provider Nurse Practitioner Acute Care; Visit Provider Nurse Practitioner Acute Care | DX: G47.33 Obstructive sleep apnea (adult) (pediatric) (principal) | CPT/HCPCS: 95811 ==

== ENCOUNTER → 2023-07-15 | Outpatient (CLI) | payer MEDICARE, SELFPAY | END | disposition home or self-care (01) | PROVIDERS: PCP Family Medicine; Visit Provider Family Medicine | DX: N30.00 Acute cystitis without hematuria (principal) | CPT/HCPCS: 87086 ==

== ENCOUNTER → 2023-07-16 | Outpatient (CLI) | payer MEDICARE, SELFPAY ==
--- NOTE | 2023-07-16 14:19 | RAD_ITS ---
STUDY: X-RAY - RIGHT SHOULDER REASON FOR EXAM: Female, 73 years old. Pain. TECHNIQUE: 4 view(s) of the shoulder. COMPARISON: None. FINDINGS: Osteopenia. Moderate arthrosis of the glenohumeral joint. Mild arthrosis of the AC joint. Normal acromion. Sclerosis and cystic changes of the humeral head. Normal soft tissues. Normal visualized pulmonary apex. RAD/Shoulder min 2 Views IMPRESSION: Osteopenia with moderate arthrosis of the glenohumeral joint, mild arthrosis of the AC joint and sclerosis and cystic changes of the humeral head. No acute abnormality or erosive changes. Electronically Signed: Pierre Ellsworth MD at 14:45 EDT ,
== END | disposition home or self-care (01) ==
LOC: MTRAD 14:17
PROVIDERS: PCP Family Medicine; Referring Provider Anesthesiology Pain Medicine; Visit Provider Anesthesiology Pain Medicine
DX: M19.011 Primary osteoarthritis, right shoulder (principal)
CPT/HCPCS: 73030

== ENCOUNTER → 2023-07-22 | Outpatient (CLI) | payer MEDICARE, SELFPAY | END | disposition home or self-care (01) | LOC: SL 12:54 | PROVIDERS: PCP Family Medicine; Visit Provider Nurse Practitioner Acute Care | DX: Z00.00 Encounter for general adult medical examination without abnormal findings (principal) ==

== ENCOUNTER → 2023-09-04 | Outpatient (CLI) | payer MEDICARE, SELFPAY ==
--- NOTE | 2023-09-04 12:40 | RAD_ITS ---
STUDY: X-RAY - LEFT SHOULDER REASON FOR EXAM: Female, 73 years old. Pain. TECHNIQUE: 4 view(s) of the shoulder. COMPARISON: None. FINDINGS: Osteopenia. Moderate arthrosis of the glenohumeral joint with osteophytes. Mild arthrosis of the AC joint. Normal acromion. Sclerosis and cystic changes in the humeral head. Normal soft tissues. Normal visualized pulmonary apex. RAD/Shoulder min 2 Views IMPRESSION: Osteopenia with moderate arthrosis of the glenohumeral joint and mild arthrosis of the acromioclavicular joint. No acute abnormality or erosive changes. Electronically Signed: Pierre Ellsworth MD at 14:50 EDT ,
--- NOTE | 2023-09-04 12:40 | RAD_ITS ---
STUDY: X-RAY - CERVICAL SPINE REASON FOR EXAM: Female, 73 years old. Degenerative disc disease. TECHNIQUE: 6 view(s) of the cervical spine were obtained. Included in oblique views. COMPARISON: None FINDINGS: There are degenerative changes of the anterior atlantoaxial articulation. Normal odontoid process. There is straightening of the normal cervical lordosis. There is multi-level endplate spondylosis. There is multi-level degenerative disc disease with multilevel disc space narrowing. Mild degree of neural foraminal stenosis at the C5-C6 level. Atherosclerotic calcification of the carotid bifurcations. RAD/Cerv Spine 4 or 5 Views IMPRESSION: This space narrowing and degeneration with anterior spondylosis at the C4-C5 and C5-C6 levels. Neuroforaminal stenosis. Electronically Signed: El Mora MD at 13:47 EDT ,
== END | disposition home or self-care (01) ==
LOC: MTRAD 12:38
PROVIDERS: PCP Family Medicine; Referring Provider Clinical Nurse Specialist Adult Health; Visit Provider Clinical Nurse Specialist Adult Health
DX: M25.512 Pain in left shoulder (principal)
CPT/HCPCS: 72050; 73030

== ENCOUNTER 2023-10-01 09:35 | Inpatient (IN) | payer MEDICARE, SELFPAY ==
[2023-10-01] VITALS (10 sets, daily range): BP systolic 109–166; BP diastolic 55–126; PULSE 72–88; RESP 10–16; TEMP 36.2–36.8; O2SAT 92–97; BMI 40.6; BMI 41.0
--- NOTE | 2023-10-01 10:03 | EKG12_ITS ---
Test Reason : WEAKNESS Blood Pressure : / mmHG Vent. Rate : 079 BPM Atrial Rate : 079 BPM P-R Int : 250 ms QRS Dur : 084 ms QT Int : 410 ms P-R-T Axes : 045 -24 036 degrees QTc Int : 470 ms Sinus rhythm with 1st degree A-V block Otherwise normal ECG Confirmed by PEPE MALIK, MARIEL ([id number]), editor school photograph JAM RILEY ([id number]) on 10/08/2023 10:26:14 A M Referred By: Confirmed By:WANDA CANTU MD
--- NOTE | 2023-10-01 10:09 | EX.ED.DYSGE1 ---
HPI History of Present Illness Chief Complaint: Weakness Narrative Narrative: 73-year-old female with history of COPD, hyperlipidemia, diabetes, morbid obesity, CHF presenting with weakness. Patient states that she was walking down the hallway today and fell onto her left knee after her legs gave out on her. She states her knee does not hurt but her left hip hurts. She denies hitting her left hip on the ground. Patient notes that she was not wearing her oxygen when she was walking to the hallway therefore she does not know if her oxygen was dropping. She is supposed to wear 2 L and nasal cannula. She states that there is a problem with her oxygen mask and she needs to get refitted. Patient also states that she has not been taking her insulin and has not been checking her blood sugars because she just forgets. She is not sure why she forgets. She reports she is currently not working and is almost the time. She has not any fevers but does admit to a cough. She states that the dry cough. She has not had any nausea or vomiting. No abdominal pain. No urinary symptoms. Patient denies hitting her head today or LOC. states that when she called out to him she was sitting on her floor of the hallway on her buttocks. [facility] Medical History Depression History of pressure injury of skin Uses wheelchair Bladder disease Hypertension Back pain Blackout Hx of falling Shortness of breath on exertion History of pain when walking History of echocardiogram History of stress test Hypertension History of CHF (congestive heart failure) History of heart attack Pain Uses wheelchair Difficulty chewing Sleep apnea CPAP (continuous positive airway pressure) dependence History of heart attack Acute respiratory failure with hypoxia (HFpEF) heart failure with preserved ejection fraction Bacteremia Wears glasses Wears dentures Insulin dependent diabetes mellitus Walker as ambulation aid Arthritis Pulmonary embolism Restless legs Back pain Difficulty swallowing Dietary restriction History of IBS Gastric reflux Non-smoker On home oxygen therapy COPD (chronic obstructive pulmonary disease) Asthma Shortness of breath on exertion History of edema Hx of transesophageal echocardiography (MARIELLA) for monitoring History of stress test History of echocardiogram Cardiology follow-up encounter COVID-19 determined by clinical diagnostic criteria Atherosclerosis of [place] coronary artery of [place] heart without angina pectoris Essential hypertension Dehydration Dehydration with hyponatremia Recurrent falls JILL (acute kidney injury) Carpal tunnel syndrome Seasonal allergies Chronic bronchitis Vitamin D deficiency Hyperlipidemia Diabetic peripheral neuropathy Hypokalemia IBS (irritable bowel syndrome) Insomnia Spinal stenosis of lumbar region DDD (degenerative disc disease), cervical Disequilibrium DM (diabetes mellitus), type 2, uncontrolled GERD (gastroesophageal reflux disease) Gastroenteritis Morbid obesity Atrial septal defect Pulmonary emboli Edema Abnormal echocardiogram History of nuclear stress test (~10/2016) History of echocardiogram (~01/2017) SOB (shortness of breath) Obesity (BMI 35.0-39.9 without comorbidity) SHANNON (obstructive sleep apnea) Anxiety and depression Cystitis, acute Sepsis Restless leg syndrome Hypertension DM (diabetes mellitus), type 2, uncontrolled Asthma Home Medications ?Medication ?Instructions ?Recorded ?Last Taken ?Type ropinirole 4 mg tablet 4 mg PO BID RLS 02/23/13 09/30/23 History losartan 100 mg tablet 100 mg PO QHS BP 02/28/17 09/30/23 History acetaminophen 500 mg tablet 1,000 mg PO Q6H PRN Pain Score 07/06/20 Unknown History -07/31 aspirin 81 mg tablet,delayed 81 mg PO DAILY heart health 07/06/20 09/30/23 History release (Adult Low Dose Aspirin) citalopram 40 mg tablet 40 mg PO QHS 07/06/20 09/30/23 History omeprazole 40 mg capsule,delayed 40 mg PO DAILY 07/06/20 09/30/23 History release metoprolol succinate 100 mg 100 mg PO DAILY 11/09/21 09/30/23 History tablet,extended release 24 hr potassium chloride 20 mEq 20 meq PO DAILY 11/09/21 09/30/23 History tablet,extended release amlodipine 5 mg tablet 5 mg PO DAILY #30 tabs 07/29/22 09/30/23 Rx clonidine HCl 0.1 mg tablet 0.1 mg PO BID 07/29/22 09/30/23 History insulin human U-100 NPH-regulr 90 unit subcut QAM 08/12/23 09/30/23 History 70-30 mix 100 unit/mL subcutaneous susp insulin human U-100 NPH-regulr 90 unit subcut QPM 08/12/23 09/30/23 History 70-30 mix 100 unit/mL subcutaneous susp isosorbide mononitrate 30 mg 30 mg PO DAILY BP #90 tabs 08/12/23 09/30/23 Rx tablet,extended release 24 hr ezetimibe 10 mg tablet 10 mg PO DAILY #90 TABLETS 09/01/23 09/30/23 Rx albuterol sulfate 2.5 mg/3 mL 2.5 mg (3 mL) inhalation Q4H PRN 09/24/23 Unknown Rx (0.083 %) solution for nebulization shortness of breath or wheezing #180 mL hydrocodone-acetaminophen 5-325mg 1 tab PO TID PRN pain 09/24/23 09/30/23 History 5mg-325mg albuterol sulfate 90 mcg/actuation 2 puff inhalation Q4H PRN 10/01/23 Unknown Rx aerosol inhaler shortness of breath or wheezing #8.5 grams duloxetine 30 mg capsule,delayed 30 mg PO DAILY 10/01/23 09/30/23 History release hydrochlorothiazide 25 mg tablet 25 mg PO DAILY 10/01/23 09/30/23 History pregabalin 75 mg capsule 75 mg PO BID 10/01/23 09/30/23 History Allergy/AdvReac Type Severity Reaction Status Date / Time rivaroxaban (From Xarelto) Allergy Intermediate Itching Verified 09/24/23 13:45 Environmental Allergies: Allergy PT UNABLE Verified 09/24/23 13:45 Uncoded TO RESPOND-NEEDS F/U latex Allergy Itching Verified 09/24/23 13:45 pravastatin Allergy Unknown Verified 09/24/23 13:45 codeine AdvReac Severe Itching Verified 09/24/23 13:45 zolpidem (From Ambien) AdvReac Severe Sleep Verified 09/24/23 13:45 walking/talking Family History Father Heart disease Hypertension CAD (coronary artery disease) Arthritis Mother Hypertension Asthma Diabetes Heart disease COPD (chronic obstructive pulmonary disease) Surgical History History of toe surgery Hx of left cataract extraction Hx of right cataract extraction History of carpal tunnel surgery of right wrist History of carpal tunnel surgery of left wrist History of cardiac catheterization History of laparoscopic cholecystectomy History of carpal tunnel surgery of left wrist sciatic nerve cauterization History of laminectomy (~07/2015) History of back surgery (~2018) History of umbilical hernia repair (~08/2012) History of cholecystectomy (~09/2011) History of appendectomy Social History Smoking Status: Never smoker second hand exposure: No alcohol intake: current alcohol intake frequency: holidays/special occasions only Alcohol type: beer and hard liquor substance use type: does not use caffeine: Yes Type: coffee Number of servings: 1 and tea what type of physical activity do you participate in: other details: physical therapy frequency: 1-2 times per week seatbelt use: always do you feel safe at home: Yes ROS ROS ED Constitutional Constitutional ED: Denies chills, fever(s) or sweats Eyes Eyes: Denies blurry vision or change in vision ENT ENT ED: Denies ear pain or sore throat Cardiovascular Cardiovascular: Denies chest pain, palpitations or racing heartbeat Respiratory/Chest Respiratory/Chest: Reports cough and dyspnea; Denies sputum Gastrointestinal Gastrointestinal: Denies abdominal pain, constipation, diarrhea, nausea or vomiting Genitourinary Genitourinary ED: Denies dysuria, hematuria or urinary frequency Musculoskeletal Musculoskeletal: Reports other Details: Left hip pain ; Denies arthralgias, myalgias or neck pain Integumentary Denies abscess, Abrasions or rash Neurologic Neurologic: Denies headache(s), paresthesias or weakness Psychiatric Psychiatric: Denies anxiety, depression, suicidal ideation or suicidal thoughts Endocrine Endocrinology: Denies polydipsia or polyuria EXAM Physical Exam Const Vital Signs: 10/01/23 09:36 10/01/23 10:03 10/01/23 10:03 Temperature 97.8 F Temperature Source Oral Pulse Rate 83 Respiratory Rate 16 Respiratory Effort Normal Non-Labored Respiratory Pattern Normal Blood Pressure 109/55 L Blood Pressure Mean 73 Pulse Ox 93 Oxygen Delivery Method Nasal Cannula Nasal Cannula Oxygen Flow Rate (L/min) 3 2 10/01/23 10:44 10/01/23 11:06 10/01/23 11:11 Temperature 97.4 F L 97.2 F L Temperature Source Oral Temporal Pulse Rate 76 74 76 Respiratory Rate 10 L 12 10 L Respiratory Effort Respiratory Pattern Blood Pressure 127/57 H 127/57 H 127/57 H Blood Pressure Mean 80 80 80 Pulse Ox 92 96 92 Oxygen Delivery Method Nasal Cannula Nasal Cannula Oxygen Flow Rate (L/min) 2 2 10/01/23 12:00 Temperature 98.2 F Temperature Source Temporal Pulse Rate 74 Respiratory Rate 12 Respiratory Effort Respiratory Pattern Blood Pressure 130/65 H Blood Pressure Mean 86 Pulse Ox 95 Oxygen Delivery Method Nasal Cannula Oxygen Flow Rate (L/min) 3 Positive well nourished General Appearance ED: NAD; Negative for pallor HEENT Reports dry mucous membranes Mouth ED: Yes dry mucous membranes Mouth: dry mucous membranes Eyes PERRL and EOMs intact bilaterally Neck no lymphadenopathy Chest Wall inspection of chest normal Resp normal respiratory effort and clear to auscultation bilaterally Auscultation: Negative for rales, rhonchi or wheezes Cardio regular rate and regular rhythm GI normal to inspection, nondistended, normoactive bowel sounds Back/Spine Cervical Spine: Negative for cervical spine tenderness Thoracic Spine / Upper Back: Negative for thoracic spinal tenderness Lumbar Spine / Lower Back: Negative for lumbar spinal tenderness Extremity Extremity Narrative: Mild tenderness to palpation of the left hip over the greater trochanter. No obvious deformity. Negative logroll. Patient able to flex the hip up off the bed without assistance. No bruising. No tenderness palpation over the left knee. Extensor mechanism is intact. No ligamentous laxity. Neuro oriented x3 and CN's II-XII intact bilaterally Sensorium / Orientation: alert Psych mental status grossly normal Skin no rashes or lesions noted General Skin Exam: Negative for jaundice or pallor MDM MDM MDM Narrative Medical decision making narrative: 73-year-old female presenting with left hip pain and a fall. She is not sure why she fell but she felt weak. She was walking well her oxygen and has not checked her blood sugars recently. Differential includes ACS, dysrhythmia, CHF, pneumonia, dehydration, electrolyte abnormalities, hyperglycemia, DKA, UTI, COVID, influenza. CBC will be obtained to assess white blood cell count, hemoglobin, platelets. BMP to assess renal function, electrolytes, glucose. High-sensitivity troponin and EKG to assess for ischemia/dysrhythmia. BNP to assess for CHF. Chest x-ray to rule out pneumonia or CHF. EKG to assess glucose. This was 498. Urinalysis to assess for UTI. COVID, influenza swabs will be obtained. Patient was given 2 L of IV fluids due to her blood sugar. Will obtain an acetone. X-ray left hip will be obtained due to patient's complaint of pain in the left hip. Patient did not hit her head no bruising CT. CBC shows normal blood cell count, hemoglobin, platelets. Creatinine is elevated at 4.03 today. Her baseline is closer to 1.5. She was given 2 L of IV fluids. Glucose is 615 without anion gap. Acetone negative. Patient has pseudohyponatremia as well with sodium 124. High-sensitivity troponin 15. BNP 7.0. Chest x-ray interpreted by myself shows no acute cardiopulmonary process. Radiologist services and agrees. Left hip x-ray 3 views on my interpretation shows no acute fracture or subluxation. After fluids were given BGT still over 500. Patient was given 15 units of Humalog. Discussed with hospitalist for admission. Impression: 1. Debility 2. Hyperglycemia 3. Acute renal failure 4. Left hip strain 5. Fall Lab Data Attestation: I reviewed the patient's lab results. Labs: Laboratory Results - last 24 hr 10/01/23 10/01/23 10/01/23 10:25 11:05 12:17 WBC 8.3 RBC 4.74 Hgb 13.9 Hct 40.4 MCV 85.2 MCH 29.3 MCHC 34.4 RDW Std Deviation 39.2 RDW Coeff of Mitzy 12.6 Plt Count 221 MPV 10.0 Immature Gran % (Auto) 1.300 H Neut % (Auto) 72.9 H Lymph % (Auto) 15.3 L Pratt % (Auto) 6.3 Eos % (Auto) 3.6 Baso % (Auto) 0.6 Absolute Neuts (auto) 6.0 Absolute Lymphs (auto) 1.27 Nucleated RBC % 0 Sodium 124 L Potassium 4.6 Chloride 89 L Carbon Dioxide 24.0 Anion Gap 11 BUN 71 H Creatinine 4.03 H Estim Creat Clear Calc 15.10 Est GFR (MDRD) Af Amer 14 L Est GFR (MDRD) Non-Af 12 L BUN/Creatinine Ratio 17.6 Glucose 615 H* Calcium 9.4 Troponin I High Sens 15 B-Natriuretic Peptide 7.0 Urine Color Yellow Urine Clarity Turbid Urine pH 5.0 Ur Specific [place] 1.020 Urine Protein 30 H Urine Glucose (UA) 1000 H Urine Ketones Negative Urine Occult Blood 50 H Urine Nitrite Negative Urine Bilirubin Negative Urine Urobilinogen Normal Ur Leukocyte Esterase 500 H Urine RBC 0-5 SEEN Urine WBC 50-100 SEEN Ur Squamous Epith Cells 0-5 SEEN Urine Bacteria 1+ Urine Mucus 0 SEEN Acetone Level NEGATIVE POC Glucose > 500 H* Radiography Diagnostic Testing: Clinical Impression(s) from Imaging Studies Chest X-Ray 10/01/23 10:45 IMPRESSION: No acute abnormality is seen. Stable examination. Electronically Signed: El Mora MD at 11:23 EDT , Hip/Pelvis X-Ray 10/01/23 10:45 IMPRESSION: Mild degree of joint space narrowing of both hip joints. No fracture or dislocation is seen. Electronically Signed: El Mora MD at 11:24 EDT , Discharge Plan Triage Chief Complaint: Weakness ED Provider: Cornelio Greenberg Dx/Rx/DC Orders Primary Care Provider: Kaz Cervantes
[2023-10-01] MEDS: 0.9% Normal Saline (1000mL) 1,000 ML 999 ML IV ×2 (10:40→12:19)
[2023-10-01 10:42] LABS: Absolute Lymphocyte Count 1.27 X10^3/uL (0.83-4.51); Basophil# 0.05 X10^3/uL; Basophil% 0.6 % (0-1); Eosinophils% 3.6 % (0-5); Hematocrit 40.4 % (37-47); Hemoglobin 13.9 g/dL (12.0-15.0); Lymphocyte # 1.27 X10^3/ul (0.83-4.51); Lymphocyte % 15.3 % (19-41); Mean Corp Hgb Conc 34.4 g/dL (32-36); Mean Corpuscular Hgb 29.3 pg (27.0-32.0); Mean Corpuscular Volume 85.2 fL (81-99); Monocyte# 0.52 X10^3/uL; Monocyte% 6.3 % (0-10); NRBC Flagged by Analyzer 0 % (0-5); Neutrophil # 6.03 X10^3/uL (2.7-7.7); Neutrophil % 72.9 % (47-70); Platelet Count 221 K/mm3 (150-450); RBC Distribution Width CV 12.6 % (11.6-14.6); RBC Distribution Width SD 39.2 fl (35.1-43.9); Red Blood Count 4.74 M/mm3 (4.2-5.4); White Blood Count 8.3 K/mm3 (4.4-11.0)
--- NOTE | 2023-10-01 10:45 | RAD_ITS ---
STUDY: X-RAY - PELVIS AND LEFT HIP REASON FOR EXAM: Female, 73 years old. Left hip pain. Recent multiple falls. TECHNIQUE: 3 views of the pelvis and hip. COMPARISON: Comparison is made with prior examination dated March 25, 2021. FINDINGS: There is a non-specific bowel gas pattern. Calcified bilateral injection granulomas in the buttocks. Prior laminectomy and fusion in the lower lumbar spine with evidence of a left-sided spinal cord stimulating device. There is narrowing with cortical sclerosis and osteophyte formation of the sacroiliac joint consistent with degenerative osteoarthritic changes. Normal bilateral superior and inferior pubic rami. There are degenerative changes of the pubic symphysis with articular narrowing and sclerosis. Normal bilateral ischial tuberosities. Normal visualized femoral head. There is osteoarthritic spur formation of the acetabular rim. There is mild articular joint space narrowing of the hip. RAD/HIP, UNI W/ Pelvis 2-3 Views IMPRESSION: Mild degree of joint space narrowing of both hip joints. No fracture or dislocation is seen. Electronically Signed: El Mora MD at 11:24 EDT ,
--- NOTE | 2023-10-01 10:45 | RAD_ITS ---
STUDY: X-RAY CHEST REASON FOR EXAM: Female, 73 years old. Chest pain TECHNIQUE: Single AP portable view of the chest. COMPARISON: Comparison is made with prior chest radiograph dated June 04, 2023. FINDINGS: The lungs are clear and expanded. There is no demonstrated pleural abnormality. Normal size heart. Normal mediastinum and gigi. Normal visualized pulmonary arteries. Normal visualized aortic arch and descending thoracic aorta. There are diffuse degenerative changes of the visualized thoracic spine. Dextroscoliosis. Normal visualized ribs, clavicles, and shoulders. There is no demonstrated abnormality of the visualized soft tissue structures of the upper abdomen. RAD/Chest 1 View (Portable) IMPRESSION: No acute abnormality is seen. Stable examination. Electronically Signed: El Mora MD at 11:23 EDT ,
[2023-10-01 11:16] LABS: Anion Gap 11 (5-15); BUN 71 mg/dL (7-18); BUN/Creat Ratio 17.6 RATIO (10-20); Calcium,Total 9.4 mg/dL (8.5-10.1); Chloride 89 mmol/L (98-107); Creatinine, Serum 4.03 mg/dL (0.55-1.02); EST Glomerular Filtration Rate 12 mL/min (>60); Est Glom Filt Rate - Afr Amer 14 mL/min (>60); Glucose 615 mg/dL (74-106); Potassium 4.6 mmol/L (3.5-5.1); Sodium Level 124 mmol/L (136-145); Troponin-I HS 15 pg/mL (3.0-54.0)
[2023-10-01 11:16] LABS: Mucous, Urine 0 SEEN /hpf (<or=2+)
--- NOTE | 2023-10-01 11:18 | NURSING ---
lab called critical of blood glucose 615. dr pool
[2023-10-01 11:26] LABS: Color, Urine Yellow (Yellow); Glucose, Dipstick 1000 mg/dl (Normal); Ketone-Dipstick Negative (Negative); Leukocyte Esterase-Dipstick 500 /ul (Negative); Nitrite-Dipstick Negative (Negative); Occult Blood-Urine 50 /ul (Negative); Protein-Dipstick 30 mg/dl (Negative); Urine Bilirubin Dipstick Negative (Negative); Urine Clarity Turbid (Clear); Urine Urobilinogen Normal (Normal)
[2023-10-01 11:34] LABS: Bacteria 1+ /hpf (None Seen); Red Blood Cells-Urine 0-5 SEEN /hpf (0-5); Squamous Epithelial Cells - UA 0-5 SEEN /hpf (5-10); White Blood Cells 50-100 SEEN /hpf (0-5)
--- NOTE | 2023-10-01 12:20 | PCM.HP.STD ---
HPI - General General Date of Admission: 10/01/23 Date of Service: 10/01/23 Chief Complaint: Worsening generalized weakness and fatigue HPI Narrative ANN PEARCE, is a 73 F who presented to [facility] ED on 10/01/2023 with worsening generalized weakness and fatigue. Saw patient at bedside in the ED, present. Patient was sitting up comfortably in bed, in no acute distress. She was moderately fatigued appearing but was answering questions appropriately. She was breathing comfortably on her home 3 L nasal cannula. Patient lives at home with her . Uses a walker for ambulation. Patient noticed that over the last several days she was becoming more weak in her legs and generally felt more fatigued and had decreased appetite. She has also had some intermittent nausea but no vomiting. She noted that her symptoms have seemed to worsen since she went on to eat on the evening of 09/27 and she was concerned she might of had some kind of food poisoning then. Patient follows up appropriately with her PCP but does report only intermittent compliance with her home medications. States she has not taken her home insulin for diabetes in the last few weeks stating that she forgets to take it. She also was put on home supplemental oxygen at 3 L with both rest and exertion by her PCP after qualifying in the office, but she only intermittently wears the oxygen because it causes discomfort around the nose. She has a CPAP to use at night for sleep apnea but only intermittently uses this as well. Patient does report some left-sided hip pain but otherwise feels like the weakness in her legs is more generalized. She denies any fevers or chills. No other acute concerns at this time. Vitals in ED unremarkable. Labs notable for sodium 124, chloride 89, creatinine 4.03 (baseline around 1.5), BUN 71, glucose 615, bicarb 24, no anion gap. UA showed 1000 glucose, 500 leukocyte esterase but negative nitrites and only 1+ bacteria. Chest x-ray unremarkable. Left hip x-ray with degenerative changes noted, no acute findings. [facility] Medical History (Updated 10/01/23 @ 17:[address] Joselo Shepherd, ) Dehydration with hyponatremia Depression History of pressure injury of skin Uses wheelchair Bladder disease Hypertension Back pain Blackout Hx of falling Shortness of breath on exertion History of pain when walking History of echocardiogram History of stress test Hypertension History of CHF (congestive heart failure) History of heart attack Pain Uses wheelchair Difficulty chewing Sleep apnea CPAP (continuous positive airway pressure) dependence History of heart attack Acute respiratory failure with hypoxia (HFpEF) heart failure with preserved ejection fraction Bacteremia Wears glasses Wears dentures Insulin dependent diabetes mellitus Walker as ambulation aid Arthritis Pulmonary embolism Restless legs Back pain Difficulty swallowing Dietary restriction History of IBS Gastric reflux Non-smoker On home oxygen therapy COPD (chronic obstructive pulmonary disease) Asthma Shortness of breath on exertion History of edema Hx of transesophageal echocardiography (MARIELLA) for monitoring History of stress test History of echocardiogram Cardiology follow-up encounter COVID-19 determined by clinical diagnostic criteria Atherosclerosis of [place] coronary artery of [place] heart without angina pectoris Essential hypertension Dehydration Recurrent falls JILL (acute kidney injury) Carpal tunnel syndrome Seasonal allergies Chronic bronchitis Vitamin D deficiency Hyperlipidemia Diabetic peripheral neuropathy Hypokalemia IBS (irritable bowel syndrome) Insomnia Spinal stenosis of lumbar region DDD (degenerative disc disease), cervical Disequilibrium DM (diabetes mellitus), type 2, uncontrolled GERD (gastroesophageal reflux disease) Gastroenteritis Morbid obesity Atrial septal defect Pulmonary emboli Edema Abnormal echocardiogram History of nuclear stress test (~10/2016) History of echocardiogram (~01/2017) SOB (shortness of breath) Obesity (BMI 35.0-39.9 without comorbidity) SHANNON (obstructive sleep apnea) Anxiety and depression Cystitis, acute Sepsis Restless leg syndrome Hypertension DM (diabetes mellitus), type 2, uncontrolled Asthma Home Medications ?Medication ?Instructions ?Recorded ?Last Taken ?Type ropinirole 4 mg tablet 4 mg PO BID RLS 02/23/13 09/30/23 History losartan 100 mg tablet 100 mg PO QHS BP 02/28/17 09/30/23 History acetaminophen 500 mg tablet 1,000 mg PO Q6H PRN Pain Score 07/06/20 Unknown History -07/31 aspirin 81 mg tablet,delayed 81 mg PO DAILY heart health 07/06/20 09/30/23 History release (Adult Low Dose Aspirin) omeprazole 40 mg capsule,delayed 40 mg PO DAILY 07/06/20 09/30/23 History release metoprolol succinate 100 mg 100 mg PO DAILY 11/09/21 09/30/23 History tablet,extended release 24 hr potassium chloride 20 mEq 20 meq PO DAILY 11/09/21 09/30/23 History tablet,extended release amlodipine 5 mg tablet 5 mg PO DAILY #30 tabs 07/29/22 09/30/23 Rx clonidine HCl 0.1 mg tablet 0.1 mg PO BID 07/29/22 09/30/23 History insulin human U-100 NPH-regulr 90 unit subcut QAM 08/12/23 09/30/23 History 70-30 mix 100 unit/mL subcutaneous susp insulin human U-100 NPH-regulr 90 unit subcut QPM 08/12/23 09/30/23 History 70-30 mix 100 unit/mL subcutaneous susp isosorbide mononitrate 30 mg 30 mg PO DAILY BP #90 tabs 08/12/23 09/30/23 Rx tablet,extended release 24 hr ezetimibe 10 mg tablet 10 mg PO DAILY #90 TABLETS 09/01/23 09/30/23 Rx albuterol sulfate 2.5 mg/3 mL 2.5 mg (3 mL) inhalation Q4H PRN 09/24/23 Unknown Rx (0.083 %) solution for nebulization shortness of breath or wheezing #180 mL hydrocodone-acetaminophen 5-325mg 1 tab PO TID PRN pain 09/24/23 09/30/23 History 5mg-325mg albuterol sulfate 90 mcg/actuation 2 puff inhalation Q4H PRN 10/01/23 Unknown Rx aerosol inhaler shortness of breath or wheezing #8.5 grams duloxetine 30 mg capsule,delayed 30 mg PO DAILY 10/01/23 09/30/23 History release hydrochlorothiazide 25 mg tablet 25 mg PO DAILY 10/01/23 09/30/23 History pregabalin 75 mg capsule 75 mg PO BID 10/01/23 09/30/23 History Allergy/AdvReac Type Severity Reaction Status Date / Time rivaroxaban (From Xarelto) Allergy Intermediate Itching Verified 09/24/23 13:45 Environmental Allergies: Allergy PT UNABLE Verified 09/24/23 13:45 Uncoded TO RESPOND-NEEDS F/U latex Allergy Itching Verified 09/24/23 13:45 pravastatin Allergy Unknown Verified 09/24/23 13:45 codeine AdvReac Severe Itching Verified 09/24/23 13:45 zolpidem (From Ambien) AdvReac Severe Sleep Verified 09/24/23 13:45 walking/talking Family History Father Heart disease Hypertension CAD (coronary artery disease) Arthritis Mother Hypertension Asthma Diabetes Heart disease COPD (chronic obstructive pulmonary disease) Surgical History History of toe surgery Hx of left cataract extraction Hx of right cataract extraction History of carpal tunnel surgery of right wrist History of carpal tunnel surgery of left wrist History of cardiac catheterization History of laparoscopic cholecystectomy History of carpal tunnel surgery of left wrist sciatic nerve cauterization History of laminectomy (~07/2015) History of back surgery (~2018) History of umbilical hernia repair (~08/2012) History of cholecystectomy (~09/2011) History of appendectomy Social History Smoking Status: Never smoker second hand exposure: No alcohol intake: current alcohol intake frequency: holidays/special occasions only Alcohol type: beer and hard liquor substance use type: does not use caffeine: Yes Type: coffee Number of servings: 1 and tea what type of physical activity do you participate in: other details: physical therapy frequency: 1-2 times per week seatbelt use: always do you feel safe at home: Yes ROS Constitutional Constitutional: Reports fatigue, malaise and weakness; Denies chills or fever(s) Eyes Eyes: Denies change in vision Cardiovascular Cardiovascular: Denies chest pain, edema or lightheadedness Respiratory/Chest Respiratory/Chest: Denies cough, shortness of breath at rest, shortness of breath with exertion or wheezing Gastrointestinal Gastrointestinal: Reports nausea; Denies abdominal pain, constipation, diarrhea or vomiting Genitourinary Genitourinary: Denies dysuria Musculoskeletal Musculoskeletal: Reports arthralgias; Denies back pain, joint pain or myalgias Neurologic Neurologic: Denies dizziness, focal weakness or headache(s) Vital Signs Vital Signs Vital Signs: 10/01/23 09:36 10/01/23 10:03 10/01/23 10:03 Temperature 97.8 F Temperature Source Oral Pulse Rate 83 Respiratory Rate 16 Respiratory Effort Normal Non-Labored Respiratory Pattern Normal Blood Pressure 109/55 L Blood Pressure Mean 73 Pulse Ox 93 Oxygen Delivery Method Nasal Cannula Nasal Cannula Oxygen Flow Rate (L/min) 3 2 10/01/23 10:44 10/01/23 11:06 10/01/23 11:11 Temperature 97.4 F L 97.2 F L Temperature Source Oral Temporal Pulse Rate 76 74 76 Respiratory Rate 10 L 12 10 L Respiratory Effort Respiratory Pattern Blood Pressure 127/57 H 127/57 H 127/57 H Blood Pressure Mean 80 80 80 Pulse Ox 92 96 92 Oxygen Delivery Method Nasal Cannula Nasal Cannula Oxygen Flow Rate (L/min) 2 2 Weight Weight: 107.5 kg Body Mass Index (BMI) 40.6 Physical Exam Const alert, oriented x3 and no apparent distress Constitutional Narrative: Elderly female, morbidly obese, moderately fatigued appearing, otherwise sitting up comfortably in bed, conversing normally, in no acute distress. General Appearance: cooperative and comfortable HEENT normocephalic, head/scalp atraumatic, hearing grossly normal bilaterally and nasal mucous membranes and turbinates normal HEENT Narrative: Dry mucous membranes. Eyes PERRL, EOMs intact bilaterally and conjunctivae normal Neck full ROM Chest inspection of chest normal Resp normal respiratory effort and no use of accessory muscles Resp Narrative: Breathing comfortably on home 3 L nasal cannula. Mildly decreased breath sounds bilaterally, no wheezing or crackles noted. Cardio regular rate, regular rhythm, no murmurs and peripheral pulses 2+ throughout GI normal to inspection, nondistended, normoactive bowel sounds, soft to palpation, non-tender and non-distended Back/Spine normal ROM Extremity full ROM Extremity Narrative: Bilateral chronic venous stasis changes noted. Neuro moves all extremities and no focal motor deficits Speech: speech normal Psych mental status grossly normal Results Lab / Micro Data 10/01/23 10:25 10/01/23 15:48 Labs: Laboratory Results - last 24 hr 10/01/23 10:25: WBC 8.3, RBC 4.74, Hgb 13.9, Hct 40.4, MCV 85.2, MCH 29.3, MCHC 34.4, RDW Std Deviation 39.2, RDW Coeff of Mitzy 12.6, Plt Count 221, MPV 10.0, Immature Gran % (Auto) 1.300 H, Neut % (Auto) 72.9 H, Lymph % (Auto) 15.3 L, [place] % (Auto) 6.3, Eos % (Auto) 3.6, Baso % (Auto) 0.6, Absolute Neuts (auto) 6.0, Absolute Lymphs (auto) 1.27, Nucleated RBC % 0, Sodium 124 L, Potassium 4.6, Chloride 89 L, Carbon Dioxide 24.0, Anion Gap 11, BUN 71 H, Creatinine 4.03 H, Estim Creat Clear Calc 15.10, Est GFR (MDRD) Af Amer 14 L, Est GFR (MDRD) Non-Af 12 L, BUN/Creatinine Ratio 17.6, Glucose 615 H*, Calcium 9.4, Troponin I High Sens 15, B-Natriuretic Peptide 7.0, Acetone Level NEGATIVE 10/01/23 11:05: Urine Color Yellow, Urine Clarity Turbid, Urine pH 5.0, Ur Specific [place] 1.020, Urine Protein 30 H, Urine Glucose (UA) 1000 H, Urine Ketones Negative, Urine Occult Blood 50 H, Urine Nitrite Negative, Urine Bilirubin Negative, Urine Urobilinogen Normal, Ur Leukocyte Esterase 500 H, Urine RBC 0-5 SEEN, Urine WBC 50-100 SEEN, Ur Squamous Epith Cells 0-5 SEEN, Urine Bacteria 1+, Urine Mucus 0 SEEN Micro: Microbiology 10/01/23 10:45 Mucosa - Nose SARS-CoV-2, Influenza & RSV (PCR) - Final Imaging Radiology Impression Chest X-Ray 10/01/23 10:45 IMPRESSION: No acute abnormality is seen. Stable examination. Electronically Signed: El Mora MD at 11:23 EDT , Hip/Pelvis X-Ray 10/01/23 10:45 IMPRESSION: Mild degree of joint space narrowing of both hip joints. No fracture or dislocation is seen. Electronically Signed: El Mora MD at 11:24 EDT , Assessment & Plan Assessment/Plan (1) Debility: (2) JILL (acute kidney injury): (3) Hyperglycemia due to type 2 diabetes mellitus: (4) Nonadherence to medication: (5) Dehydration with hyponatremia: PLAN: Plan Patient is a 73-year-old female who presented [facility] ED on 10/01/2023 with worsening generalized weakness and fatigue. 1. Generalized weakness and fatigue, acute on chronic debility ? Admit under inpatient status to PCU. PT/OT/case management consulted. Suspect weakness and fatigue is primarily due to dehydration and uremia from JILL in setting of poorly controlled diabetes with hyperglycemia. Expect patient will show improvement with treatment of JILL and diabetes as noted below. Patient lives at home with and uses walker for ambulation. Will likely need either home with home health care or SNF on discharge. Monitor. 2. JILL on CKD stage III ? Creatinine 4.03, BUN 71 on admit. Baseline creatinine around 1.5. Notably had significant improvement with creatinine down to 3.04 on day of admission after IV fluid resuscitation so JILL presumed prerenal due to dehydration. Monitor BMP and urine output daily. Can consider further IV fluid resuscitation as needed. Encourage p.o. intake. 3. Type 2 diabetes mellitus with hyperglycemia ? Home regimen of 70-30 NPH-regular insulin 90 units twice daily. Blood glucose 615 on admit, A1c pending. Patient reports recent noncompliance with home medication. Notably, A1c has actually been fairly well-controlled in the 7-9 range for the last several years, but last A1c reported was from March 2022. Notably with bicarb 24 and no acidosis on admit, not in DKA. Will start Lantus 20 units twice daily and Humalog 15 units with meals plus sliding scale insulin and adjust as needed. 4. Hyponatremia ? Sodium 124 on admit. Chloride 87. Has normal sodium at baseline. Presume low sodium secondary to severe dehydration. Sodium improved to 130 on day of admission with IV fluid resuscitation. Okay for more rapid sodium correction given this is likely a fairly acute decrease in sodium. Monitor sodium level daily. 5. Medication nonadherence ? Patient reports intermittent medication nonadherence over the past several weeks to months. Does report good follow-up with PCP but appears to have low healthcare literacy. Strongly encouraged the patient have good medication adherence on discharge. 6. Chronic hypoxic respiratory failure ? On home 3 L nasal cannula. Stable at baseline on admission. Chest x-ray nonacute. Continue home short-acting inhaler as needed. 7. Hypertension ? Continue home amlodipine, clonidine and Toprol. Holding home losartan, hydrochlorothiazide and nitrate for now given normotensive on admission and JILL as noted above. Chronic medical conditions: ? Morbid obesity: BMI 41 on admit. Complicates hospital course, care and prognosis. ? SHANNON: Continue home nocturnal CPAP. ? Depression/chronic pain with neuropathy/RLS: Stable. Continue home duloxetine, pregabalin, ropinirole and hydrocodone?acetaminophen as needed. ? Hyperlipidemia: Continue home ezetimibe. ? GERD: Continue home PPI. DVT prophylaxis: Heparin subcu CODE STATUS: Full code, verified Expected disposition: TBD Total clinical time spent by myself addressing the patient's medical issues, reviewing all the data, and collaborating with patient's care team: 75 minutes. Charges/Coding Visit Charges Inpatient E&M: 12558 Init Hosp L3
[2023-10-01 12:38] LABS: Bedside Glucose > 500 mg/dL (74-106)
[2023-10-01] MEDS: Lactated Ringers 1,000 ML 999 ML IV (13:03)
[2023-10-01] MEDS: Lactated Ringers 1,000 ML 150 ML IV (14:13)
[2023-10-01 14:30] LABS: AST(SGOT) 11 U/L (15-37); Alanine Aminotransfer ALT/SGPT 22 U/L (13-56); Albumin, Serum 3.4 g/dL (3.2-5.0); Alkaline Phosphatase 93 U/L (45-117); Bilirubin, Direct 0.11 mg/dL (0.00-0.30); Globulin 3.7 g/dL (2.2-4.2); Phosphorus 4.7 mg/dL (2.5-4.9); Protein, Total 7.1 g/dL (6.4-8.2)
[2023-10-01 16:19] LABS: Anion Gap 9 (5-15); BUN 61 mg/dL (7-18); BUN/Creat Ratio 20.1 RATIO (10-20); Calcium,Total 9.5 mg/dL (8.5-10.1); Chloride 97 mmol/L (98-107); Creatinine, Serum 3.04 mg/dL (0.55-1.02); EST Glomerular Filtration Rate 16 mL/min (>60); Est Glom Filt Rate - Afr Amer 19 mL/min (>60); Estimated Creatinine Clearance 20.12 ml/min; Glucose 359 mg/dL (74-106); Potassium 4.4 mmol/L (3.5-5.1); Sodium Level 130 mmol/L (136-145)
[2023-10-01] MEDS: Insulin Lispro 100 UNIT/ML INSULN.PEN SC ×2 (16:22→21:22)
[2023-10-01] MEDS: Insulin Lispro 100 UNIT/ML INSULN.PEN 15 UNIT SC (16:22)
[2023-10-01 16:36] LABS: Bedside Glucose 312 mg/dL (74-106)
[2023-10-01 20:05] LABS: Hemoglobin A1c 12.8 % (3.8-5.6)
[2023-10-01] MEDS: Pregabalin 75 MG Capsule PO (21:11)
[2023-10-01] MEDS: Pramipexole Di-HCl 0.5 MG Tablet 1.5 MG PO (21:15)
[2023-10-01] MEDS: cloNIDine HCl 0.1 MG Tablet PO (21:15)
[2023-10-01] MEDS: Heparin Injection (Vial) 5,000 UNIT/ML VIAL 5000 UNIT SC (21:16)
[2023-10-01] MEDS: Insulin Glargine-YFGN 100 UNIT/ML Pen 20 UNIT SC (21:23)
[2023-10-01 23:06] LABS: Bedside Glucose 296 mg/dL (74-106)
[2023-10-02 03:45] VITALS: BP 128/88; PULSE 84; RESP 18; TEMP 36.4; O2SAT 96
[2023-10-02] MEDS: Heparin Injection (Vial) 5,000 UNIT/ML VIAL 5000 UNIT SC ×3 (05:25→21:47)
[2023-10-02 06:07] LABS: Hematocrit 38.9 % (37-47); Mean Corp Hgb Conc 33.4 g/dL (32-36); Mean Corpuscular Hgb 28.5 pg (27.0-32.0); Mean Corpuscular Volume 85.3 fL (81-99); Mean Platelet Vol. 10.2 fl (6.2-12.0); Platelet Count 210 K/mm3 (150-450); RBC Distribution Width CV 12.7 % (11.6-14.6); RBC Distribution Width SD 39.2 fl (35.1-43.9); Red Blood Count 4.56 M/mm3 (4.2-5.4); White Blood Count 8.8 K/mm3 (4.4-11.0)
[2023-10-02 06:39] LABS: Anion Gap 7 (5-15); BUN 49 mg/dL (7-18); Calcium,Total 9.1 mg/dL (8.5-10.1); Chloride 101 mmol/L (98-107); Creatinine, Serum 1.75 mg/dL (0.55-1.02); EST Glomerular Filtration Rate 30 mL/min (>60); Est Glom Filt Rate - Afr Amer 37 mL/min (>60); Estimated Creatinine Clearance 34.95 ml/min; Glucose 259 mg/dL (74-106); Potassium 4.4 mmol/L (3.5-5.1); Sodium Level 132 mmol/L (136-145)
[2023-10-02 07:25] VITALS: O2SAT 94
[2023-10-02 08:20] VITALS: BP 153/64; PULSE 78; RESP 18; TEMP 36.8; O2SAT 97
[2023-10-02] MEDS: Insulin Lispro 100 UNIT/ML INSULN.PEN SC ×4 (08:22→21:58)
[2023-10-02] MEDS: Aspirin E.C. 81 MG Tablet PO (08:22)
[2023-10-02] MEDS: Insulin Lispro 100 UNIT/ML INSULN.PEN 15 UNIT SC ×2 (08:22→12:54)
[2023-10-02] MEDS: cloNIDine HCl 0.1 MG Tablet PO ×2 (08:22→21:47)
[2023-10-02 08:23] VITALS: PULSE 78
[2023-10-02] MEDS: Insulin Glargine-YFGN 100 UNIT/ML Pen 20 UNIT SC (08:23)
[2023-10-02] MEDS: Metoprolol(XL)Succ 100 MG Tablet PO (08:23)
[2023-10-02] MEDS: DULoxetine Hcl 30 MG Capsule PO (08:23)
[2023-10-02] MEDS: Pramipexole Di-HCl 0.5 MG Tablet 1.5 MG PO ×2 (08:24→21:49)
[2023-10-02] MEDS: amLODIPine 5 MG Tablet PO (08:24)
[2023-10-02] MEDS: Pantoprazole Sodium 40 MG Tablet PO (08:24)
[2023-10-02] MEDS: Ezetimibe 10 MG Tablet PO (08:24)
[2023-10-02] MEDS: Pregabalin 75 MG Capsule PO ×2 (08:31→22:09)
[2023-10-02 08:47] LABS: Bedside Glucose 251 mg/dL (74-106)
--- NOTE | 2023-10-02 10:18 | CASEMGMT ---
CANDACE [place] Assessment: Face to Face with pt for initial transition planning/care coordination assessment. CANDACE [place] introduced self and role at [facility], pt voices understanding and consents to assessment. Pt is A&O x4 and answers all questions appropriately at this time. Pt sitting up in chair in no distress. Care providers, pharmacy, and demographics verified/updated. Admitting Dx: JILL Hyperglycemia, Debility PCP: Billy Specialists: [facility], Orthopedics; [place], Pulmonology; [facility]; [place], Pain management. Preferred Pharmacy: [facility] Insurance: [employer] [facility] Prescription Benefit: yes LNOK: Living Arrangements: Pt lives with in a mobile home with 1 step to enter. ADL: Pt states prior to coming to hospital she was I with showering and getting dressed. Needs assistance with cooking, cleaning, grocery shopping. Transportation: Pt states drives her. DME: Nubulizer, Wheelchair, Walker, BiPap, O2 consentrator through [employer], grab bars, ramp, glucometer & supplies. HHC/SNF: Previously at [facility], used HHC services but does not recall what agency. Pt states concerned about going home upon DC, does not feel strong enough to go home. Pt would like list of SNF in the area. Pt states no further concerns/needs. CM to follow. Advised pt to ask CM if any further question/concerns/needs arise, voices understanding. Notified SW of pt request to go to SNF upon DC. Pt Goal: SNF Plan: SNF, will follow plan of care. Nathaly MARIA CM
--- NOTE | 2023-10-02 10:28 | CASEMGMT ---
Discharge Planning A list of?SNF & HH providers including quality and resource use data and consistent with the patient's preferred geographic region, medical needs, and insurance network was created in [employer] Guide.? This list was provided to the Caitlyn Rain Discharge Planning Asst.
--- NOTE | 2023-10-02 10:53 | PCM.PN.HOSP ---
Reason for Visit Reason for Visit: Diagnoses Type 2 diabetes mellitus with hyperglycemia (10/01/23) Hypo-osmolality and hyponatremia (10/01/23) Acute kidney failure, unspecified (10/01/23) Other malaise (10/01/23) Patient's other noncompliance with medication regimen for other reason (10/01/23) Subjective Subjective Saw patient at bedside this morning. Sitting up comfortably in bedside chair, in no acute distress. Patient does continue to appear moderately fatigued this morning, slightly improved from admission. She states that she continues to feel very fatigued and may be slightly improved from admission but not much. Continues to report significant weakness in her legs. She did work with physical therapy yesterday and had borderline therapy scores, and she would prefer to go to a rehab facility on discharge. She was found to have an A1c of 12.8%, significantly worse than last values from 1 to 2 years ago. States that she was on a short course of steroids recently for shoulder issues, but otherwise her blood sugars have been running high for quite a while now. She states that she tries to take her insulin most of the time but it seemed to be less effective to her so she has not been taking it as often. No other new concerns this morning. Objective Data Objective Data Vital Signs: Vital Signs Temp Pulse Resp BP Pulse Ox O2 Del Method O2 Flow Rate 98.2 F 78 18 153/64 H 97 Nasal Cannula 2 10/02/23 08:20 10/02/23 08:23 10/02/23 08:20 10/02/23 08:20 10/02/23 08:20 10/02/23 08:20 10/02/23 09:26 Oxygen Flow Rate (L/min) 2 Oxygen Delivery Method Nasal Cannula Weight: 108.4 kg Body Mass Index (BMI) 41.0 Intake & Output: Intake and Output for Last 24 Hours 09/30/23 10/01/23 10/02/23 23:59 23:59 23:59 Intake Total 4240 / 4240 Output Total 2150 / 2150 350 / 350 Balance 2089 / 2089 -350 / -350 Lab / Micro Data 10/02/23 05:15 10/02/23 05:15 Labs: Laboratory Results - last 24 hr 10/01/23 10:25: Sodium 124 L, Potassium 4.6, Chloride 89 L, Carbon Dioxide 24.0, Anion Gap 11, BUN 71 H, Creatinine 4.03 H, Estim Creat Clear Calc 15.10, Est GFR (MDRD) Af Amer 14 L, Est GFR (MDRD) Non-Af 12 L, BUN/Creatinine Ratio 17.6, Glucose 615 H*, Calcium 9.4, Phosphorus 4.7, Magnesium 3.0 H, Total Bilirubin 0.40, Direct Bilirubin 0.11, AST 11 L, ALT 22, Alkaline Phosphatase 93, Troponin I High Sens 15, B-Natriuretic Peptide 7.0, Total Protein 7.1, Albumin 3.4, Globulin 3.7, Acetone Level NEGATIVE 10/01/23 11:05: Urine Color Yellow, Urine Clarity Turbid, Urine pH 5.0, Ur Specific [place] 1.020, Urine Protein 30 H, Urine Glucose (UA) 1000 H, Urine Ketones Negative, Urine Occult Blood 50 H, Urine Nitrite Negative, Urine Bilirubin Negative, Urine Urobilinogen Normal, Ur Leukocyte Esterase 500 H, Urine RBC 0-5 SEEN, Urine WBC 50-100 SEEN, Ur Squamous Epith Cells 0-5 SEEN, Urine Bacteria 1+, Urine Mucus 0 SEEN 10/01/23 12:17: POC Glucose > 500 H* 10/01/23 15:48: Sodium 130 L, Potassium 4.4, Chloride 97 L, Carbon Dioxide 24.0, Anion Gap 9, BUN 61 H, Creatinine 3.04 H, Estim Creat Clear Calc 20.12, Est GFR (MDRD) Af Amer 19 L, Est GFR (MDRD) Non-Af 16 L, BUN/Creatinine Ratio 20.1 H, Glucose 359 H, Calcium 9.5 10/01/23 16:16: POC Glucose 312 H 10/01/23 19:11: Hemoglobin A1c 12.8 H 10/01/23 21:20: POC Glucose 296 H 10/02/23 05:15: WBC 8.8, RBC 4.56, Hgb 13.0, Hct 38.9, MCV 85.3, MCH 28.5, MCHC 33.4, RDW Std Deviation 39.2, RDW Coeff of Mitzy 12.7, Plt Count 210, MPV 10.2, Sodium 132 L, Potassium 4.4, Chloride 101, Carbon Dioxide 24.0, Anion Gap 7, BUN 49 H, Creatinine 1.75 H, Estim Creat Clear Calc 34.95, Est GFR (MDRD) Af Amer 37 L, Est GFR (MDRD) Non-Af 30 L, BUN/Creatinine Ratio 28.0 H, Glucose 259 H, Calcium 9.1 10/02/23 08:16: POC Glucose 251 H Micro: Microbiology 10/01/23 10:45 Mucosa - Nose SARS-CoV-2, Influenza & RSV (PCR) - Final Radiography Diagnostic Testing: Radiology Impression Chest X-Ray 10/01/23 10:45 IMPRESSION: No acute abnormality is seen. Stable examination. Electronically Signed: El Mora MD at 11:23 EDT , Hip/Pelvis X-Ray 10/01/23 10:45 IMPRESSION: Mild degree of joint space narrowing of both hip joints. No fracture or dislocation is seen. Electronically Signed: El Mora MD at 11:24 EDT , Physical Exam Const alert, oriented x3 and no apparent distress Constitutional Narrative: Elderly female, morbidly obese, mild to moderately fatigued appearing, otherwise sitting up comfortably in bedside chair, conversing normally, in no acute distress. General Appearance: cooperative and comfortable HEENT normocephalic, head/scalp atraumatic, hearing grossly normal bilaterally, nasal mucous membranes and turbinates normal and moist oral mucous membranes Eyes PERRL, EOMs intact bilaterally and conjunctivae normal Neck full ROM Chest inspection of chest normal Resp normal respiratory effort and no use of accessory muscles Resp Narrative: Breathing comfortably on home 2 L nasal cannula. Mildly decreased breath sounds bilaterally, no wheezing or crackles noted. Stable. Cardio regular rate, regular rhythm, no murmurs and peripheral pulses 2+ throughout GI normal to inspection, nondistended, normoactive bowel sounds, soft to palpation, non-tender and non-distended Back/Spine normal ROM Extremity full ROM Extremity Narrative: Bilateral chronic venous stasis changes noted. Stable. Neuro moves all extremities and no focal motor deficits Speech: speech normal Psych mental status grossly normal Assessment & Plan Assessment/Plan (1) Debility: (2) JILL (acute kidney injury): (3) Hyperglycemia due to type 2 diabetes mellitus: (4) Nonadherence to medication: (5) Dehydration with hyponatremia: PLAN: Plan Patient is a 73-year-old female who presented [facility] ED on 10/01/2023 with worsening generalized weakness and fatigue. 1. Generalized weakness and fatigue, acute on chronic debility ? PT/OT/case management following. Suspect weakness and fatigue is primarily due to dehydration and uremia from JILL in setting of poorly controlled diabetes with hyperglycemia. Patient lives at home with and uses walker for ambulation. Continues to report weakness and fatigue despite improvement in JILL and blood sugar control as noted below. Has borderline therapy scores and prefers SNF placement on discharge. SNF referrals sent. 2. JILL on CKD stage III, improving ? Creatinine 4.03, BUN 71 on admit. Baseline creatinine around 1.5. Had great improvement in kidney function with IV fluid resuscitation. Most recent creatinine 1.7 on 10/01. Has had good urine output. Continue to monitor BMP and urine output daily. No further IV fluids needed at this time, encourage p.o. intake. 3. Type 2 diabetes mellitus with hyperglycemia ? Home regimen of 70-30 NPH-regular insulin 90 units twice daily. Blood glucose 615 on admit, A1c 12.8%. Patient reports recent noncompliance with home medication. Notably, A1c has actually been fairly well-controlled in the 7-9 range for the last several years, but last A1c reported was from March 2022. Notably with bicarb 24 and no acidosis on admit, not in DKA. Started on Lantus 20 units twice daily and Humalog 15 units with meals on admission with improved blood sugar control. Increase to Lantus 25 units twice daily on 10/01. Would prefer patient be discharged on Lantus and Humalog regimen if feasible from a cost standpoint; will send prescription for these to pharmacy today for brar check. 4. Hyponatremia, improving ? Sodium 124 on admit. Chloride 87. Has normal sodium at baseline. Presume low sodium secondary to severe dehydration. Sodium improved to 130 on day of admission with IV fluid resuscitation. Most recent sodium 132 on 10/01. No need for further IV fluids, encourage p.o. intake. Continue to monitor sodium level daily. 5. Medication nonadherence ? Patient reports intermittent medication nonadherence over the past several weeks to months. Does report good follow-up with PCP but appears to have low healthcare literacy. Strongly encouraged the patient have good medication adherence on discharge. 6. Chronic hypoxic respiratory failure ? On home 2-3 L nasal cannula. Stable at baseline on admission. Chest x-ray nonacute. Continue home short-acting inhaler as needed. 7. Hypertension ? Continue home amlodipine, clonidine and Toprol. Holding home losartan, hydrochlorothiazide and nitrate for now given normotensive on admission and JILL as noted above. Chronic medical conditions: ? Morbid obesity: BMI 41 on admit. Complicates hospital course, care and prognosis. ? SHANNON: Continue home nocturnal CPAP. ? Depression/chronic pain with neuropathy/RLS: Stable. Continue home duloxetine, pregabalin, ropinirole and hydrocodone?acetaminophen as needed. ? Hyperlipidemia: Continue home ezetimibe. ? GERD: Continue home PPI. DVT prophylaxis: Heparin subcu CODE STATUS: Full code, verified Expected disposition: SNF, 1 to 2 days Total clinical time spent by myself addressing the patient's medical issues, reviewing all the data, and collaborating with patient's care team: 35 minutes. Charges/Coding Visit Charges Inpatient E&M: 55659 Subs Hosp L2
--- NOTE | 2023-10-02 11:02 | CASEMGMT ---
Discharge [place]ap[place] planning manager provided RN CM with list of local SNF covered by pt insurance, RN CM into pt room and provided list to patient. Pt will review and provide with top 3-5 choices.
--- NOTE | 2023-10-02 11:35 | CASEMGMT ---
CANDACE CM into pt room, pt provided top 3 choices for SNF [facility]. Informed SW of pt choices.
--- NOTE | 2023-10-02 11:47 | CASEMGMT ---
Addendum entered by Caitlyn Rain 10/02/23 11:55: [facility] accepted and will start precert. Caitlyn Rain DC Planning Asst. Original Note: Discharge Planning Referral sent to [place] via [facility]. Caitlyn Rain DC Planning Asst.
--- NOTE | 2023-10-02 11:59 | CASEMGMT ---
SW met with patient and her . Introduced self and role at [facility]. SW let both know that [facility] accepted patient when she is medically ready. They thanked HARLEY and were in agreement with plan. Plan: [facility] pending patient being medically ready and insurance approval. Michelle HAWLEY
[2023-10-02 12:26] LABS: Bedside Glucose 204 mg/dL (74-106)
[2023-10-02 15:07] VITALS: BP 114/46; PULSE 72; RESP 18; TEMP 36.7; O2SAT 94
[2023-10-02 15:46] LABS: Bedside Glucose 157 mg/dL (74-106)
[2023-10-02 17:38] LABS: Bedside Glucose 151 mg/dL (74-106)
[2023-10-02 21:05] VITALS: BP 126/54; PULSE 61; RESP 20; TEMP 36.7; O2SAT 95
[2023-10-02] MEDS: Insulin Glargine-YFGN 100 UNIT/ML Pen 25 UNIT SC (22:02)
[2023-10-03 01:02] LABS: Bedside Glucose 245 mg/dL (74-106)
[2023-10-03 03:34] VITALS: BP 113/50; PULSE 57; RESP 18; TEMP 36.7; O2SAT 96
[2023-10-03 06:18] LABS: Anion Gap 8 (5-15); BUN 50 mg/dL (7-18); BUN/Creat Ratio 33.3 RATIO (10-20); Calcium,Total 9.3 mg/dL (8.5-10.1); Chloride 102 mmol/L (98-107); EST Glomerular Filtration Rate 36 mL/min (>60); Est Glom Filt Rate - Afr Amer 44 mL/min (>60); Estimated Creatinine Clearance 40.77 ml/min; Glucose 235 mg/dL (74-106); Potassium 4.2 mmol/L (3.5-5.1); Sodium Level 134 mmol/L (136-145)
[2023-10-03] MEDS: Heparin Injection (Vial) 5,000 UNIT/ML VIAL 5000 UNIT SC ×2 (06:22→13:42)
[2023-10-03 07:20] VITALS: O2SAT 94
--- NOTE | 2023-10-03 07:32 | CASEMGMT ---
[facility] received insurance approval for patient. HARLEY will notify physician. Michelle HAWLEY
[2023-10-03] MEDS: Insulin Lispro 100 UNIT/ML INSULN.PEN SC ×2 (08:37→12:10)
[2023-10-03] MEDS: Insulin Lispro 100 UNIT/ML INSULN.PEN 15 UNIT SC ×2 (08:37→12:10)
[2023-10-03 08:57] LABS: Bedside Glucose 302 mg/dL (74-106)
[2023-10-03 09:10] VITALS: BP 124/95; PULSE 64; RESP 18; TEMP 36.7; O2SAT 99
[2023-10-03] MEDS: Aspirin E.C. 81 MG Tablet PO (09:11)
[2023-10-03] MEDS: amLODIPine 5 MG Tablet PO (09:11)
[2023-10-03 09:12] VITALS: PULSE 64
[2023-10-03] MEDS: Pantoprazole Sodium 40 MG Tablet PO (09:12)
[2023-10-03] MEDS: Pramipexole Di-HCl 0.5 MG Tablet 1.5 MG PO (09:12)
[2023-10-03] MEDS: DULoxetine Hcl 30 MG Capsule PO (09:12)
[2023-10-03] MEDS: cloNIDine HCl 0.1 MG Tablet PO (09:12)
[2023-10-03] MEDS: Metoprolol(XL)Succ 100 MG Tablet PO (09:12)
[2023-10-03] MEDS: Ezetimibe 10 MG Tablet PO (09:12)
[2023-10-03] MEDS: Insulin Glargine-YFGN 100 UNIT/ML Pen 25 UNIT SC (09:13)
--- NOTE | 2023-10-03 12:28 | PCM.DC.SUM ---
Providers Date of Admission: 10/01/23 Date of Discharge: 10/03/23 Primary Care Physician: Dr. Kaz Cervantes DO Reason For Visit: JILL HYPERGLYCEMIA, DEBILITY Diagnosis Discharge Diagnosis (1) Debility: Status: Acute Code(s): R53.81 - Other malaise (2) JILL (acute kidney injury): Status: Inactive Code(s): N17.9 - Acute kidney failure, unspecified (3) Hyperglycemia due to type 2 diabetes mellitus: Status: Inactive Code(s): E11.65 - Type 2 diabetes mellitus with hyperglycemia (4) Nonadherence to medication: Status: Acute Code(s): Z91.148 - Patient's other noncompliance with medication regimen for other reason (5) Dehydration with hyponatremia: Status: Acute Code(s): E87.1 - Hypo-osmolality and hyponatremia Medications at Discharge Home Medications ropinirole 4 mg tablet 4 mg PO BID RLS 02/23/13 aspirin 81 mg tablet,delayed release (Adult Low Dose Aspirin) 81 mg PO DAILY [facility] 07/06/20 omeprazole 40 mg capsule,delayed release 40 mg PO DAILY 07/06/20 metoprolol succinate 100 mg tablet,extended release 24 hr 100 mg PO DAILY 11/09/21 potassium chloride 20 mEq tablet,extended release 20 meq PO DAILY 11/09/21 amlodipine 5 mg tablet 5 mg PO DAILY #30 tabs 07/29/22 clonidine HCl 0.1 mg tablet 0.1 mg PO BID 07/29/22 insulin human U-100 NPH-regulr 70-30 mix 100 unit/mL subcutaneous susp 90 unit subcut QAM 08/12/23 insulin human U-100 NPH-regulr 70-30 mix 100 unit/mL subcutaneous susp 90 unit subcut QPM 08/12/23 ezetimibe 10 mg tablet 10 mg PO DAILY #90 TABLETS 09/01/23 hydrocodone-acetaminophen 5-325mg 5mg-325mg 1 tab PO TID PRN pain 09/24/23 albuterol sulfate 90 mcg/actuation aerosol inhaler 2 puff inhalation Q4H PRN shortness of breath or wheezing #8.5 grams 10/01/23 duloxetine 30 mg capsule,delayed release 30 mg PO DAILY 10/01/23 pregabalin 75 mg capsule 75 mg PO BID 10/01/23 insulin glargine 100 unit/mL (3 mL) subcutaneous pen (Lantus Solostar U-100 Insulin) 25 unit (0.25 mL) subcut BID #15 mL 10/02/23 insulin lispro 100 unit/mL subcutaneous pen (Humalog KwikPen (U-100) Insulin) 15 unit (0.15 mL) subcut TID #15 mL 10/02/23 acetaminophen 500 mg tablet 650 mg (1.3 x 500 mg) PO Q6H PRN Pain Score 1-5/10 #0 tabs 10/03/23 Hospital Course Operations None Procedures - (Chest x-ray, hip/pelvis x-ray) Summary of Care Provided Minutes Spent on Discharge: 35 Hospital Course: Patient is a 73-year-old female who presented [facility] ED on 10/01/2023 with worsening generalized weakness and fatigue. Hospital course as noted below. Patient discharged to SNF in stable condition on 10/02. 1. Generalized weakness and fatigue, acute on chronic debility ? PT/OT/case management followed. Suspected weakness and fatigue is primarily due to dehydration and uremia from JILL in setting of poorly controlled diabetes with hyperglycemia. Patient lives at home with and uses walker for ambulation. Continued to report weakness and fatigue despite improvement in JILL and blood sugar control as noted below; mildly improved by day of discharge. Had borderline therapy scores and requested SNF placement on discharge. Discharged to SNF at the [place] [facility] in stable condition on 10/02. 2. JILL on CKD stage III, resolved ? Creatinine 4.03, BUN 71 on admit. Baseline creatinine around 1.5. Had great improvement in kidney function with IV fluid resuscitation, resolved back to baseline by 10/02. Had good urine output throughout hospitalization. 3. Type 2 diabetes mellitus with hyperglycemia ? Home regimen of 70-30 NPH-regular insulin 90 units twice daily. Blood glucose 615 on admit, A1c 12.8%. Patient reports recent noncompliance with home medication. Notably, A1c was actually fairly well-controlled in the 7-9 range for the last few years, but last A1c reported was from March 2022. Notably with bicarb 24 and no acidosis on admit, not in DKA. Had adequate blood sugar control while inpatient on Lantus 25 units twice daily and Humalog 15 units with meals. Ran brar check through our pharmacy and cost of Lantus plus insulin regimen with pens was not too unreasonable. Will discharge patient on Lantus plus Humalog regimen as above and patient can discuss with her PCP after SNF discharge which regimen she would like to continue. 4. Hyponatremia, resolved ? Sodium 124 on admit. Chloride 87. Has normal sodium at baseline. Presume low sodium secondary to severe dehydration along with pseudohyponatremia from hyperglycemia on admission as noted above.. Sodium improved to 134 by day of discharge after IV fluid administration and improving p.o. intake. 5. Medication nonadherence ? Patient reported intermittent medication nonadherence over the past several weeks to months. Does report good follow-up with PCP but appears to have low healthcare literacy. Strongly encouraged the patient have good medication adherence on discharge. 6. Chronic hypoxic respiratory failure ? On home 2-3 L nasal cannula. Stable at baseline on admission. Chest x-ray nonacute. Continue home short-acting inhaler as needed. 7. Hypertension ? Continue home amlodipine, clonidine and Toprol. Held home losartan, hydrochlorothiazide and nitrate during hospitalization and patient remained normotensive throughout remainder of admission, will continue to hold these medications on discharge. Chronic medical conditions: ? Morbid obesity: BMI 41 on admit. Complicated hospital course, care and prognosis. ? SHANNON: Continue home nocturnal CPAP. ? Depression/chronic pain with neuropathy/RLS: Stable. Continue home duloxetine, pregabalin, ropinirole and hydrocodone?acetaminophen as needed. ? Hyperlipidemia: Continue home ezetimibe. ? GERD: Continue home PPI. Total clinical time spent by myself addressing the patient's medical issues, reviewing all the data, and collaborating with patient's care team: 35 minutes. Physical Exam Const alert, oriented x3 and no apparent distress Constitutional Narrative: Elderly female, morbidly obese, mildly fatigued appearing, otherwise sitting up comfortably in bedside chair, conversing normally, in no acute distress. Improved from admission. General Appearance: cooperative and comfortable HEENT normocephalic, head/scalp atraumatic, hearing grossly normal bilaterally, nasal mucous membranes and turbinates normal and moist oral mucous membranes Eyes PERRL, EOMs intact bilaterally and conjunctivae normal Neck full ROM Chest inspection of chest normal Resp normal respiratory effort and no use of accessory muscles Resp Narrative: Breathing comfortably on home 2 L nasal cannula. Mildly decreased breath sounds bilaterally, no wheezing or crackles noted. Stable. Cardio regular rate, regular rhythm, no murmurs and peripheral pulses 2+ throughout GI normal to inspection, nondistended, normoactive bowel sounds, soft to palpation, non-tender and non-distended Back/Spine normal ROM Extremity full ROM Extremity Narrative: Bilateral chronic venous stasis changes noted. Stable. Neuro moves all extremities and no focal motor deficits Speech: speech normal Psych mental status grossly normal Weight / BMI Weight Weight: 108.4 kg Body Mass Index (BMI) 41.0 ABG / Lab / Microbiology Data 10/02/23 05:15 10/03/23 03:56 Laboratory: Laboratory Results - last 24 hr 10/02/23 15:24: POC Glucose 157 H 10/02/23 17:20: POC Glucose 151 H 10/02/23 21:57: POC Glucose 245 H 10/03/23 03:56: Sodium 134 L, Potassium 4.2, Chloride 102, Carbon Dioxide 24.0, Anion Gap 8, BUN 50 H, Creatinine 1.50 H, Estim Creat Clear Calc 40.77, Est GFR (MDRD) Af Amer 44 L, Est GFR (MDRD) Non-Af 36 L, BUN/Creatinine Ratio 33.3 H, Glucose 235 H, Calcium 9.3 10/03/23 08:36: POC Glucose 302 H Microbiology: Microbiology 10/01/23 10:45 Mucosa - Nose SARS-CoV-2, Influenza & RSV (PCR) - Final Meaningful Use Info Meaningful Use Meaningful Use Diagnoses (Choose all that apply): None applicable Ischemic Stroke Statin Dosing Therapy Reference: STATIN DOSE THERAPY REFERENCE: * Patients > 75 years receive moderate or high dose statin therapy. * Patients 75 years or YOUNGER should receive HIGH intensity statin dose unless contraindicated. You will be required to document reason for non-treatment if statin daily dose does not meet guidelines. HIGH DOSE STATIN THERAPY DAILY Atorvastatin > than or = to 40 mg Rosuvastatin > than or = to 20 mg Amlodipine + Atorvastatin > than or = to 2.5/40 mg Ezetimibe + Simvastatin 10/80 mg Simvastatin 80mg Discharge Plan Admission Admit Date/Time: 10/01/23 12:36 Primary Reason for Your Visit: Worsening weakness and fatigue Attending Provider: Joselo Shepherd Primary Care Provider: Kaz Cervantes Discharge Orders/Prescriptions Prescriptions: New insulin glargine [Lantus Solostar U-100 Insulin] 100 unit/mL (3 mL) insulin pen 25 unit subcut BID Qty: 15 0RF insulin lispro [Humalog KwikPen Insulin] 100 unit/mL insulin pen 15 unit subcut TID Qty: 15 0RF Continued omeprazole 40 mg capsule,delayed release(DR/EC) 40 mg PO DAILY aspirin [Adult Low Dose Aspirin] 81 mg tablet,delayed release (DR/EC) 81 mg PO DAILY clonidine HCl 0.1 mg tablet 0.1 mg PO BID amlodipine 5 mg tablet 5 mg PO DAILY Qty: 30 11RF hydrocodone-acetaminophen 5-325 mg tablet 1 tab PO TID PRN (Reason: pain) ropinirole 4 MG tablet 4 mg PO BID Patient Comments: restless legs metoprolol succinate 100 mg tablet extended release 24 hr 100 mg PO DAILY potassium chloride 20 mEq Tablet Extended Release 20 meq PO DAILY duloxetine 30 mg capsule,delayed release(DR/EC) 30 mg PO DAILY pregabalin 75 mg capsule 75 mg PO BID Patient Comments: PT UNSURE OF DOSE SHE IS TAKING OF THIS ezetimibe 10 mg tablet 10 mg PO DAILY Qty: 90 3RF albuterol sulfate 90 mcg/actuation HFA aerosol inhaler 2 puff inhalation Q4H PRN (Reason: shortness of breath or wheezing) Qty: 8.5 0RF Changed acetaminophen 500 mg tablet 650 mg PO Q6H PRN (Reason: Pain Score 1-5/10) Qty: 0 0RF Held insulin NPH and regular human 100 unit/mL (70-30) suspension 90 unit SC QAM Hold Instructions: Resume on 10/23/23. Patient Comments: PT FORGETS TO TAKE THIS MED FREQUENTLY Rx Instructions: Hold if glucose less than 130 mg/dl insulin NPH and regular human 100 unit/mL (70-30) suspension 90 unit SC QPM Hold Instructions: Resume on 10/23/23. Patient Comments: PT FORGETS TO TAKE THIS MED FREQUENTLY Rx Instructions: Hold if glucose less than 130 mg/dl Discontinued isosorbide mononitrate 30 mg tablet extended release 24 hr 30 mg PO DAILY Qty: 90 3RF albuterol sulfate 2.5 mg /3 mL (0.083 %) solution for nebulization 2.5 mg INHALATION Q4H PRN (Reason: shortness of breath or wheezing) Qty: 180 3RF hydrochlorothiazide 25 mg tablet 25 mg PO DAILY losartan 100 mg tablet 100 mg PO QHS Referrals / Follow Up: Kaz Cervantes DO [Primary Care Provider] - Disposition Disposition (needs filled in before D/C Order can be placed): [facility] Facility Charges/Coding Visit Charges Inpatient E&M: 32288 Disch Hosp >30min
[2023-10-03 12:33] LABS: Bedside Glucose 222 mg/dL (74-106)
--- NOTE | 2023-10-03 13:01 | PHA.DC_ITS ---
Pharmacy [place] Med Reconciliation Pharmacy Service has performed discharge medication reconciliation for this patient. The patient's discharge medication list was reviewed for discrepancies and discrepancies were resolved. Medications at Discharge Home Medications ropinirole 4 mg tablet 4 mg PO BID RLS 02/23/13 aspirin 81 mg tablet,delayed release (Adult Low Dose Aspirin) 81 mg PO DAILY [facility] 07/06/20 omeprazole 40 mg capsule,delayed release 40 mg PO DAILY 07/06/20 metoprolol succinate 100 mg tablet,extended release 24 hr 100 mg PO DAILY 11/09/21 potassium chloride 20 mEq tablet,extended release 20 meq PO DAILY 11/09/21 amlodipine 5 mg tablet 5 mg PO DAILY #30 tabs 07/29/22 clonidine HCl 0.1 mg tablet 0.1 mg PO BID 07/29/22 insulin human U-100 NPH-regulr 70-30 mix 100 unit/mL subcutaneous susp 90 unit subcut QAM 08/12/23 insulin human U-100 NPH-regulr 70-30 mix 100 unit/mL subcutaneous susp 90 unit subcut QPM 08/12/23 ezetimibe 10 mg tablet 10 mg PO DAILY #90 TABLETS 09/01/23 hydrocodone-acetaminophen 5-325mg 5mg-325mg 1 tab PO TID PRN pain 09/24/23 albuterol sulfate 90 mcg/actuation aerosol inhaler 2 puff inhalation Q4H PRN shortness of breath or wheezing #8.5 grams 10/01/23 duloxetine 30 mg capsule,delayed release 30 mg PO DAILY 10/01/23 pregabalin 75 mg capsule 75 mg PO BID 10/01/23 insulin glargine 100 unit/mL (3 mL) subcutaneous pen (Lantus Solostar U-100 Insulin) 25 unit (0.25 mL) subcut BID #15 mL 10/02/23 insulin lispro 100 unit/mL subcutaneous pen (Humalog KwikPen (U-100) Insulin) 15 unit (0.15 mL) subcut TID #15 mL 10/02/23 acetaminophen 500 mg tablet 650 mg (1.3 x 500 mg) PO Q6H PRN Pain Score 1-5/10 #0 tabs 10/03/23
--- NOTE | 2023-10-03 13:37 | CASEMGMT ---
Patient ready for discharge to [place]. SW completed a PASRR in [facility] system. SW notified patient that SW was not able to reach her to let him know about discharge. Patient said she will notify him. Plan: d/c to [place] at [place] under skilled level of care on a PASRR. Physicians will transport via wheelchair van. Michelle HAWLEY
[2023-10-03 13:40] VITALS: BP 133/56; PULSE 70; RESP 18; TEMP 36.8; O2SAT 95
--- NOTE | 2023-10-03 13:49 | CASEMGMT ---
Discharge Planning Discharge orders, signed med list, and transport time sent to [facility] via [facility]. Physicians will transport patient by wheelchair at 2:30p. Nursing, SW, and patient updated. Calls placed to patients were unanswered and no option to leave vm was available. Caitlyn Rain DC Planning Asst.
--- NOTE | 2023-10-03 14:07 | NURSING ---
Called report to Scott MARIA at [facility]
== END 2023-10-03 14:35 | disposition skilled nursing facility (03) | DRG 683 ==
LOC: ED 10:14 → PCU 12:41
PROVIDERS: Admitting Provider Hospitalist; Emergency Provider Student in an Organized Health Care Education/Training Program; PCP Family Medicine; Visit Provider Hospitalist
DX: N17.9 Acute kidney failure, unspecified (principal); I13.0 Hypertensive heart and chronic kidney disease with heart failure and stage 1 through stage 4 chronic kidney disease, or unspecified chronic kidney disease; E87.1 Hypo-osmolality and hyponatremia; J96.11 Chronic respiratory failure with hypoxia; Z68.41 Body mass index [BMI] 40.0-44.9, adult; I50.32 Chronic diastolic (congestive) heart failure; E11.22 Type 2 diabetes mellitus with diabetic chronic kidney disease; N18.30 Chronic kidney disease, stage 3 unspecified; J44.9 Chronic obstructive pulmonary disease, unspecified; E11.65 Type 2 diabetes mellitus with hyperglycemia; E11.42 Type 2 diabetes mellitus with diabetic polyneuropathy; Z79.4 Long term (current) use of insulin; E11.69 Type 2 diabetes mellitus with other specified complication; E66.01 Morbid (severe) obesity due to excess calories; G47.33 Obstructive sleep apnea (adult) (pediatric); E78.5 Hyperlipidemia, unspecified; S73.102A Unspecified sprain of left hip, initial encounter; K21.9 Gastro-esophageal reflux disease without esophagitis; E86.0 Dehydration; I25.10 Atherosclerotic heart disease of native coronary artery without angina pectoris; W19.XXXA Unspecified fall, initial encounter; Z91.148 Patient's other noncompliance with medication regimen for other reason; G89.29 Other chronic pain; Z79.82 Long term (current) use of aspirin; Z79.891 Long term (current) use of opiate analgesic; R53.81 Other malaise; Z79.01 Long term (current) use of anticoagulants
CPT/HCPCS: 36415; 71045; 73502; 80048; 80076; 81001; 82009; 82962; 83036; 83735; 83880; 84100; 84484; 85025; 85027; 87631; 93005; 94668; 97110; 97116; 97162; 97166; 97530; 97535; 97802; 99285; J7030; J7120; A4216

== ENCOUNTER → 2023-10-22 | Outpatient (CLI) | payer MEDICARE, SELFPAY ==
--- NOTE | 2023-10-22 13:50 | US_ITS ---
STUDY: RENAL ULTRASOUND - COMPLETE REASON FOR EXAM: Female, 73 years old. UTI TECHNIQUE: Ultrasound evaluation of the kidneys was performed with real-time and static altman-scale imaging. COMPARISON: None. FINDINGS: RIGHT KIDNEY: Normal location of the right kidney, which is normal in size. The right kidney measures 12.1 cm. There is a normal cortex of the right kidney. The renal cortex measures 1.1 cm. There is no right renal mass or cyst. There are no right renal calculi. There is no right hydronephrosis. DISTAL RIGHT URETER: There is non-visualization of the distal right ureter. There is no demonstrated right ureterovesical junction calculus. There is a visualized right ureteral jet. LEFT KIDNEY: Normal location of the left kidney, which is normal in size. The left kidney measures 11.8 cm. There is a normal cortex of the left kidney. The renal cortex measures 1.7 cm. There is no left renal mass or cyst. There are no left renal calculi. There is no left hydronephrosis. DISTAL LEFT URETER: There is non-visualization of the distal left ureter. There is no demonstrated left ureterovesical junction calculus. There is a visualized left ureteral jet. BLADDER: The distended urinary bladder has a volume of 153 ml. The empty urinary bladder has a volume of ml. There is a normal wall thickness of the distended urinary bladder. There is no demonstrated mass within the urinary bladder. There are no demonstrated bladder calculi. US/Kidney and Bladder IMPRESSION: Normal ultrasound of the kidneys and urinary bladder. Electronically Signed: Gordy Pascal MD at 8:56 EDT ,
== END | disposition home or self-care (01) ==
LOC: US 13:45
PROVIDERS: PCP Family Medicine; Referring Provider Urology; Visit Provider Urology
DX: N39.0 Urinary tract infection, site not specified (principal)
CPT/HCPCS: 76770

== ENCOUNTER → 2023-12-08 | Outpatient (CLI) | payer MEDICARE, SELFPAY ==
--- NOTE | 2023-12-08 13:32 | ART_ITS ---
Reason For Study: Pain BLE Procedure A bilateral lower extremity continuous wave Doppler with analog waveform analysis and ankle brachial indexes. Left Segmental Pressures Left brachial= 154mmHg. Left posterior tibial artery = 150mmHg. Left dorsalis pedis artery = 168mmHg. Left digit = 105 mmHg. Right Segmental Pressures Right brachial= 160mmHg. Right posterior tibial artery = 156mmHg. Right dorsalis pedis artery = 173mmHg. Right digit = 109 mmHg. Indices The right ankle brachial index by the posterior tibial artery is 0.98. The right ankle brachial index by the dorsalis pedis is 1.08. The right digital-brachial index is 0.68. The left ankle brachial index by the posterior tibial artery is 0.94. The left ankle brachial index by the dorsalis pedis is 1.05. The left digital-brachial index is 0.66. VL/Ankle Brachial Index Interpretation Summary Right MADYSON 1.08, normal. Doppler/PVR waveforms of the right ankle normal at rest . 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 Left MADYSON 1.05, normal. Doppler/PVR waveforms of the left ankle normal at rest. 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 Ordering Physician: Frederick Cervantes Referring Physician: FREDERICK CERVANTES DO Performed By: Theresa Voss RDCS/RVT
== END | disposition home or self-care (01) ==
PROVIDERS: PCP Family Medicine; Referring Provider Family Medicine; Visit Provider Family Medicine
DX: I73.9 Peripheral vascular disease, unspecified (principal)
CPT/HCPCS: 93922

== ENCOUNTER → 2024-01-12 | Outpatient (CLI) | payer MEDICARE, SELFPAY ==
--- NOTE | 2024-01-12 15:00 | RAD_ITS ---
STUDY: X-RAY CHEST REASON FOR EXAM: Female, 73 years old. Orthopnea TECHNIQUE: PA and lateral views of the chest. COMPARISON: October 01, 2023 FINDINGS: Stable thoracic spine stimulating catheters. No consolidation is present. The lungs are clear and expanded. There is no demonstrated pleural abnormality. Normal size heart. Normal mediastinum and gigi. Normal visualized pulmonary arteries. There is atherosclerotic calcification of the aortic arch with tortuosity. There are diffuse degenerative changes of the visualized thoracic spine. Normal visualized ribs, clavicles, and shoulders. There is no demonstrated abnormality of the visualized soft tissue structures of the upper abdomen. RAD/Chest PA and Lateral IMPRESSION: Degenerative changes, as described above. No demonstrated acute cardiopulmonary process. Electronically Signed: David Josue MD at 15:45 EDT ,
== END | disposition home or self-care (01) ==
LOC: RAD 14:58
PROVIDERS: PCP Family Medicine; Referring Provider Nurse Practitioner Gerontology; Visit Provider Nurse Practitioner Gerontology
DX: R06.02 Shortness of breath (principal)
CPT/HCPCS: 71046

== ENCOUNTER → 2024-01-15 | Outpatient (CLI) | payer MEDICARE, SELFPAY ==
--- OUTSIDE RECORDS SUMMARY | 2024-01-15 17:59 | XMS RPT_ITS | CCD ---
Author Organization [facility] Care Team Providers Care Basketball Scout Name Role Phone Eden Escalante LPN Unavailable Unavailable Eden Escalante LPN Unavailable Unavailable LIZARRAGA, MARIA Ayala Unavailable Unavailable MOODISPAWMOHAN Unavailable Unavailable RAVI, FREDERICK A Unavailable Unavailable RAVI, FREDERICK A Unavailable Unavailable LIZARRAGA, MARIA J Unavailable Unavailable LIZARRAGA, MARIA J Unavailable Unavailable RAVI, FREDERICK A Unavailable Unavailable LIZARRAGA, MARIA J Unavailable Unavailable LIZARRAGA, MARIA J Unavailable Unavailable RAVI, FREDERICK A Unavailable Unavailable LIZARRAGA, MARIA J Unavailable Unavailable LIZARRAGA, MARIA J Unavailable Unavailable LIZARRAGA, MARIA J Unavailable Unavailable LIZARRAGA, MARIA J Unavailable Unavailable Ravi DO, Frederick A Primary Care Provider [facility] DO, Frederick A Primary Care Provider Ravi DO, Frederick A Primary Care Provider Ravi DO, Frederick A Primary Care Provider Ravi DO, Frederick A Primary Care Provider RAVI, FREDERICK A Primary Care Unavailable TESTRAKE, MERCEDES Attending Unavailable TESTRAKE, MERCEDES Admitting Unavailable TESTRAKE, MERCEDES Attending Unavailable TESTRAKE, MERCEDES Referring Unavailable RAVI, FREDERICK A Primary Care Unavailable TESTRAKE, MERCEDES Referring Unavailable RAVI, FREDERICK A Primary Care Unavailable TESTRAKE, MERCEDES Attending Unavailable TESTRAKE, MERCEDES Referring Unavailable RAVI, FREDERICK A Primary Care Unavailable TESTRAKE, MERCEDES Attending Unavailable RAVI, FREDERICK A Primary Care Unavailable RAVI, FREDERICK A Referring Unavailable TESTRAKE, MERCEDES Referring Unavailable TESTRAKE, MERCEDES Attending Unavailable RAVI, FREDERICK A Primary Care Unavailable RAVI, FREDERICK A Primary Care Unavailable TESTRAKE, MERCEDES Referring Unavailable TESTRAKE, MERCEDES Attending Unavailable RAVI, FREDERICK A Primary Care Unavailable TESTRAKE, MERCEDES Attending Unavailable RAVI, FREDERICK A Primary Care Unavailable TESTRAKE, MERCEDES Attending Unavailable TESTRAKE, MERCEDES Attending Unavailable RAVI, FREDERICK A Primary Care Unavailable RAVI, FREDERICK A Primary Care Unavailable TESTRAKE, MERCEDES Referring Unavailable TESTRAKE, MERCEDES Attending Unavailable RAVI, FREDERICK A Primary Care Unavailable TESTRAKE, MERCEDES Referring Unavailable RAVI, FREDERICK A Primary Care Unavailable Allergies Allergy Classification Reported Allergen(s) Allergy Type Date of Onset Reaction(s) Facility (20 sources) Latex; Translations: [LATEX] allergy to substance 0 Rash, Itching [facility] Work Phone: (2 sources) zolpidem Drug Allergy 5 Sleep walking and talking [facility] Work Phone: (20 sources) Cat; Translations: [CATS] Allergy to substance 6 Itching, Shortness of Breath, Other: See Comments [facility] (20 sources) Codeine; Translations: [CODEINE] Drug Allergy 9 Itching [facility] (20 sources) Dog; Translations: [DOGS] Allergy to substance 6 Itching, Shortness of Breath, Other: See Comments [facility] (20 sources) Pravastatin; Translations: [PRAVASTATIN] Drug Allergy 9 Myalgia [facility] (20 sources) Seasonal allergy; Translations: [SEASONAL ALLERGIES] Allergy to substance 4 Itching, Other: See Comments [facility] (20 sources) zolpidem; Translations: [ZOLPIDEM TARTRATE] Drug Allergy 9 Other: See Comments [facility] Medications Current Medications Medication Drug Class(es) Dates Sig (Normalized) Sig (Original) acetaminophen 325 mg / HYDROcodone bitartrate 5 mg oral tablet (10 sources) Opioid Agonist Start: 08-06-2023 take 1 tablet by mouth every eight hours as needed HYDROcodone-aceta minophen (NORCO) 5-325 mg per tablet Take 1 tablet by mouth three times a day as needed for pain. 08/06/2023 Active Start: 05-06-2014 End: 08-23-2014 NORCO 5-325 MG TABS Two tabl ets by mouth as needed for pain HYDROCODONE-ACETAMINOPHEN [id number] Frederick Catia FreedmanRavi DO amLODIPine 5 mg oral tablet (13 sources) Dihydropyridine Calcium Channel Yonny Start: 06-25-2023 amLODIPine (NORVASC) 5 mg tablet 06/25/2023 Active Start: 04-03-2015 take 1 tablet by kathy th once daily for hypertension AMLODIPINE BESYLATE 5 MG TABS One tablet by mouth daily for high blood pressure AMLODIPINE BESYLATE [id number] Frederick A Ravi DO Start: 04-03-2015 take 1 tablet by mouth once da sravan AMLODIPINE BESYLATE 10 MG TABS One tablet by mouth daily AMLODIPINE BESYLATE [id number] Frederick Catia [facility] amoxicillin 875 mg / clavulanate 125 mg oral tablet (3 sources) Penicillin-class Antibacterial Start: 08-11-2023 End: 08-18-2023 amoxicillin-clavulanate potassium (AUGMENTIN) 875-125 mg per tablet Take 1 tablet by mouth two times a day for 7 days. FOR 7 DAYS. 14 tablet 0 08/11/2023 08/18/2023 Active aspirin 81 mg oral tablet (20 sources) Nonsteroidal Anti-inflammatory Drug Start: 07-10-2005 ASPIRIN 81 MG TAB Take one (1) tablet daily . 0 07/10/2005 Active BABY ASPIRIN 81 MG CHEW ASPIRIN [id number] Deila Santoyo Comment on above: Take one (1) tablet daily . cephalexin 500 mg oral capsule (3 sources) Cephalosporin Antibacterial Start: 3 End: 3 take 1 capsule by mouth twice daily cephALEXin (KEFLEX) 500 mg capsule Take 1 capsule by mouth twice daily for 7 days. 14 capsule 0 07/22/2022 07/29/2022 Active Start: 01-18-2022 End: 01-25-2022 take 1 capsule by mouth twice daily cephALEXin (KEFLEX) 500 mg capsule Take 1 capsule by mouth twice daily for 7 days. 14 capsule 0 01/18/2022 01/25/2022 Active Comment on above: Take 1 capsule by [facility] twice daily for 7 days. ciprofloxacin 500 mg oral tablet (3 sources) Quinolone Antimicrobial Start: 08-11-19 End: 08-18-19 ciprofloxacin HCl (CIPRO) 500 mg tablet Take 1 tablet by mouth two times a day for 7 days. FOR 7 DAYS. 14 tablet 0 08/11/2023 08/18/2023 Active doxycycline hyclate 100 mg oral capsule (9 sources) Tetracycline-class Drug Start: 08-14-19 End: 08-31-19 take 1 capsule by mouth twice daily doxycycline hyclate (VIBRAMYCIN) 100 mg capsule Take 1 capsule (100 mg) by mouth two times a day. 14 capsule 08/14/2023 Active DULoxetine 20 mg delayed release oral capsule (20 sources) Serotonin and Norepinephrine Reuptake Inhibitor Start: 07-28-19 End: 07-28-19 take 1 capsule by mouth once daily DULoxetine (CYMBALTA) 20 mg capsule Take 1 capsule by mouth once daily. 07/28/2023 Active End: 05-29-2011 take 1 tablet by mouth once daily CYMBALTA 60 MG CPEP One tablet by mouth daily DULOXETINE HCL [id number] Delia Santoyo Comment on above: Take 20 mg by mouth once daily. ezetimibe 10 mg oral tablet (9 sources) Dietary Cholesterol Absorption Inhibitor Start: 3 ezetimibe (ZETIA) 10 mg tablet Take by mouth. 07/29/2022 Active fluconazole 150 mg oral tablet (1 source) Azole Antifungal Start: 2 End: 2 fluconazole (DIFLUCAN) 150 mg tablet Take 1 tablet by mouth one time only for 1 dose. Repeat in 3 days as needed. 2 tablet 0 01/18/2022 01/18/2022 Active Comment on above: Take 1 tablet by [facility] one time only for 1 dose. Repeat in 3 days as needed. furosemide 40 mg oral tablet (19 sources) Loop Diuretic Start: 4 take 2 tablets by mouth once furosemide (LASIX) 40 mg tablet Take 2 tablets by mouth every afternoon. 06/28/2023 Active Start: 06-22-2014 End: 02-01-2015 take 1 tablet by mouth twice daily for edema FUROSEMIDE 40 MG TABS One tablet by mouth twice daily for edema FUROSEMIDE [id number] Frederick Cervantes DO Start: 2014 End: 06-22-2014 take 2 tablets by mouth once daily FUROSEMIDE 20 MG TABS 2 tablet by mouth daily (water pill) FUROSEMIDE [id number] Frederick Cervantes DO Start: 2014 take 1 tablet by kathy th once daily FUROSEMIDE 20 MG TABS 1 tablet by mouth daily (water pill) FUROSEMIDE [id number] Frederick Bardales [facility] hydroCHLOROthiazide 25 mg oral tablet (19 sources) Thiazide Diuretic Start: 06-20-2023 hydroCHLOROthiazide 25 mg tablet 06/20/2023 Active Start: 06-08-2014 End: 04-17-2015 take 1 tablet by mouth once daily HYDROCHLOROTHIAZIDE 25 MG TABS One tablet by mouth daily for blood pressure HYDROCHLOROTHIAZIDE [id number] Frederick Freedmanutztolu RAIN End: 09-03-2012 take 1 tablet by mouth once daily HYDROCHLOROTHIAZIDE TABS One tablet by mouth daily 25mg HYDROCHLOROTHIAZIDE TABS [id number] Korey Mendoza insulin needles, DISPOSABLE, (PEN NEEDLE) 31 X 516 Misc Ndle (20 sources) Start: 01-16-2011 insulin needle s, DISPOSABLE, (PEN NEEDLE) 31 X 16 Misc Ndle use as directed 100 Each 11 01/16/2011 Active Comment on above: use as directed 24 hr isosorbide mononitrate 30 mg extended release oral tablet (9 sources) Nitrate Vasodilator isosorbide mononitrate ER (IMDUR) 30 mg 24 hr tablet Active losartan potassium 100 mg oral tablet (20 sources) Angiotensin 2 Receptor Yonny Start: 05-11-2014 take 1 tablet by mouth once daily losartan (COZAAR) 100 mg tablet Indications: Essential hypertension Take 1 tablet by mouth once daily. 30 tablet 2 12/26/2014 Active Start: 2014 End: 05-11-2014 LOSARTAN POTASSIUM 50 MG TAB S one tablet daily for high blood pressure LOSARTAN POTASSIUM [id number] Frederick Freedmanutzman Comment on above: Take 1 tablet by kathy th once daily. meloxicam (12 sources) Nonsteroidal Anti-inflammatory Drug meloxicam (MOBIC ORA L) Take by mouth. Active meloxicam (MOBIC ORAL) Take by mouth. 0 Active Comment on above: Take by mouth. insulin isophane, human 70 unt/ml / insulin, regular, human 30 unt/ml injectable suspension (20 sources) Insulin Start: 12-27-2016 insulin 70/30 NPH/regular units/mL (NOVOLIN 70/30) 50 units sc at breakfast, 55 units at lunch, 82 units at supper. 6 Vial 11 12/27/2016 Active Start: 05-01-2015 NOVOLIN 70/30 (70-30) 100 UNIT/ML SUSP 50-50-75 per endo INSULIN NPH ISOPHANE & REGULAR [id number] Frederick Cervantes Comment on above: 50 units sc at break fast, 55 units at lunch, 82 units at supper. nystatin 100 unt/mg / triamcinolone acetonide 0.001 mg/mg topical ointment (20 sources) Polyene Antifungal, Corticosteroid Start: 2021 nystatin-triamcino lone (MYCOLOG) ointment Apply sparingly to perineum twice daily for irritation/infecti on. 30 g 01/18/2022 Active Comment on above: Apply sparingly to p erineum twice daily for irritation/infection. omeprazole 40 mg delayed release oral capsule (9 sources) Proton Pump Inhibitor take 1 capsule by mouth once daily omeprazole (PRILOSEC) 40 mg capsule Take 1 capsule by mouth once daily. Active pioglitazone 15 mg oral tablet (9 sources) Peroxisome Proliferator Receptor alpha Agonist, Peroxisome Proliferator Receptor gamma Agonist, Thiazolidinedione Start: 2023 pioglitazone (ACTOS) 15 mg tablet 04/28/2023 Active microencapsulated potassium chloride 20 meq extended release oral tablet (20 sources) Start: 2015 take 1 tablet by mouth once daily potassium chloride ER (K-DUR, KLOR-CON) 20 mEq tablet Indications: Hypokalemia Take 1 tablet by mouth once daily. 0 06/28/2015 Active Start: 2014 take 2 tablets by [facility] once daily KLOR-CON M20 20 MEQ CR-TABS 2 tab by mouth daily for low Potassium as directed POTASSIUM CHLORIDE LEMUEL CR [id number] Frederick Cervantes DO Start: 2014 take 1-2 tablets by mouth once daily KLOR-CON M20 20 MEQ CR-TABS 1-2 tab by mouth daily for low Potassium as directed POTASSIUM CHLORIDE LEMUEL CR [id number] Frederick Cervantes DO Start: 2014 take 1 tablet by kathy th once daily KLOR-CON M20 20 MEQ CR-TABS 1 tab by mouth daily for Potassium POTASSIUM CHLORIDE LEMUEL CR [id number] Frederick Cervantes DO Start: 2014 take 1-2 tablets by mouth once daily KLOR-CON M20 20 MEQ CR-TABS 1-2 tab by mouth daily for low Potassium as directed POTASSIUM CHLORIDE LEMUEL CR [id number] Shirley Sethi LPN Comment on above: Take 1 tablet by kathy th once daily. pregabalin 75 mg oral capsule (13 sources) Start: 06-30-2023 pregabalin (LYRICA) 75 mg capsule 175 mg. 06/30/2023 Active Start: 06-30-2023 pregabalin (LY DONALD) 75 mg capsule End: 2014 take 1 tablet by mouth twice daily LYRICA 75 MG CAPS One tablet by mouth twice daily PREGABALIN [id number] Augusto Cline MD rOPINIRole 4 mg oral tablet (20 sources) Nonergot Dopamine Agonist Start: 07-10-2005 End: 10-16-2016 REQUIP 4 MG TAB Take 1 tablet at bedtime as needed 0 07/10/2005 Active Comment on above: Take 1 tablet at bed time as needed traMADol hydrochloride 50 mg oral tablet (15 sources) Opioid Agonist take 1 tablet by mouth every six hours as needed traMADol (ULTRAM) 50 mg tablet Take 50 mg by mouth every 6 hours as needed for pain. Active End: 12-23-2012 take 1 tablet by mouth twice daily TRAMADOL HCL 50 MG TABS One tablet by mouth twice daily TRAMADOL HCL [id number] Augusto Cline MD Completed/Discontinued Medications Medication Drug Class(es) Dates Sig (Normalized) Sig (Original) acetaminophen 325 mg / oxyCODONE hydrochloride 10 mg oral tablet (20 sources) Opioid Agonist Start: 05-01-2015 End: 10-16-2016 take 1 tablet by mouth every six hours as needed for pain OXYCODONE-ACETAMIN OPHEN 10-325 MG TABS One tablet by mouth evvery 6 hours as needed for severe pain OXYCODONE-ACETAMIN OPHEN [id number] Frederick Cervantes DO Start: 05-01-2015 take 1 tablet by kathy th twice daily as needed for pain OXYCODONE-ACETAMINOPHEN 10-325 MG TABS O ne tablet by mouth twice daily as needed for severe pain OXYCODONE-ACETAMINOPHEN [id number] Frederick Cervantes DO Start: 04-17-2015 End: 05-01-2015 take 1 tablet by mouth three times daily as needed for pain OXYCODONE-ACETAMINOPHEN 5-325 MG TABS On e tablet by mouth three times daily as needed for severe pain OXYCODONE-ACETAMINOPHEN [id number] Frederick Cervantes DO End: 07-28-2023 oxyCODONE-acetaminophen (PER COCET 10) 10-325 mg tablet Take 1 tablet by mouth as needed. 0 07/28/2023 Discontinued PERCOCET TABS pr n OXYCODONE-ACETAMINOPHEN TABS [id number] Delia Garcia NP Comment on above: Take 1 tablet by kathy th as needed. ALBUTEROL SULFATE AERS (4 sources) beta2-Adrenergic Agonist Start: 2014 End: 10-16-2016 PROAIR HFA AERS 2 puffs every 4-6 hours as needed ALBUTEROL SULFATE AERS [id number] Delia Garcia NP Start: 2014 PROAIR HFA AER S 2 puffs every 4-6 hours as needed ALBUTEROL SULFATE AERS [id number] Frederick Catia Ravi ALPRAZolam 0.5 mg oral tablet (14 sources) Benzodiazepine Start: 07-22-2014 End: 10-16-2016 ALPRAZOLAM 0.5 MG TABS 1/2-1 tablet daily as needed for anxiety ALPRAZOLAM [id number] Delia Garcia NP Start: 07-22-2014 ALPRAZOLAM 0.5 MG TABS 1-2 tablets at night as needed for sleep or anxiety ALPRAZOLAM [id number] Shirley Sethi LPN Start: 05-11-2014 End: 06-22-2014 ALPRAZOLAM 0.5 MG TABS 1-2 t ablets at night as needed for sleep or anxiety ALPRAZOLAM [id number] Frederick Cervantes DO azithromycin 250 mg oral tablet (2 sources) Macrolide Antimicrobial Start: 04-18-2014 End: 04-23-2014 take 2 tablets by mouth once, then take 1 tablet by mouth once daily, then take 2-5 tablets by mouth AZITHROMYCIN 250 MG TABS 2 PO on day 1 then 1 PO daily on days 2-5 AZITHROMYCIN [id number] Frederick Cervantes DO 12 hr buPROPion hydrochloride 90 mg / naltrexone hydrochloride 8 mg extended release oral tablet (8 sources) Opioid Antagonist, Aminoketone Start: 02-01-2015 End: 10-05-2015 take 2 tablets by mouth twice daily CONTRAVE 8-90 MG [id number] 2 PO twice daily NALTREXONE-BUPROPION HCL [id number] Frederick Cervantes DO cefadroxil 500 mg oral capsule (4 sources) Cephalosporin Antibacterial End: 09-03-2012 take 1 tablet by mouth twice daily CEFADROXIL 500 MG CAPS One tablet by mouth twice daily for infection CEFADROXIL [id number] Thu Mcdaniels chlorthalidone 25 mg oral tablet (2 sources) Thiazide-like Diuretic Start: 04-17-2015 take 1 tablet by mouth once daily in the morning CHLORTHALIDONE 25 MG TABS One tablet by mouth daily [facility] CHLORTHALIDONE [id number] Frederick Cervantes DO cholecalciferol 86685 unt oral capsule (2 sources) Vitamin D Start: 03-13-2015 take 1 tablet by mouth every month VITAMIN D3 53956 UNIT CAPS 1 tablet by mouth once per month for vitamin D deficiency CHOLECALCIFEROL [id number] Frederick Cervantes DO citalopram 20 mg oral tablet (18 sources) Serotonin Reuptake Inhibitor End: 07-28-2023 citalopram (CELEXA) 20 mg tablet Take 40 mg by mouth. 0 07/28/2023 Discontinued End: 09-03-2012 take 1 tablet by mouth once daily CELEXA 40 MG TABS One tablet by mouth daily CITALOPRAM HYDROBROMIDE [id number] Korey Mendoza Comment on above: Take 40 mg by mouth. cyclobenzaprine hydrochloride 10 mg oral tablet (10 sources) Muscle Relaxant Start: 02-02-20 End: 05-15-19 16 take 1 tablet by mouth once daily as needed for pain CYCLOBENZAPRINE HCL 10 MG TABS One tablet by mouth daily at night as needed for muscle pain CYCLOBENZAPRINE HCL [id number] Shirley Sethi LPN End: 12-23-2012 take 1 tablet by mouth once daily FLEXERIL 10 MG TABS One tablet by mouth daily CYCLOBENZAPRINE HCL [id number] Augusto Cline MD ergocalciferol 21501 unt oral tablet (4 sources) Provitamin D2 Compound Start: 2014 End: 10-16-2016 take 1 tablet by mouth every week VITAMIN D (ERGOCALCIFEROL) 44091 UNIT CAPS 1 tab by mouth once a week. ERGOCALCIFEROL [id number] Delia Garcia NP esomeprazole 20 mg delayed release oral capsule (8 sources) Proton Pump Inhibitor Start: 10-05-2015 End: 10-16-2016 take 1 tablet by mouth once daily for gastroesophageal reflux disease NEXIUM 20 MG CPDR One tablet by mouth daily for GERD ESOMEPRAZOLE MAGNESIUM [id number] Delia Garcia NP Start: 12-02-2014 End: 01-02-2015 take 1 capsule by mouth once daily NEXIUM 40 MG CPDR One capsule by mouth daily ESOMEPRAZOLE MAGNESIUM [id number] Frederick Cervantes DO eszopiclone 3 mg oral tablet (8 sources) Start: 04-17-2015 End: 10-16-2016 take 1 tablet by mouth once daily for sleep ESZOPICLONE 3 MG TABS One tablet by mouth daily at night for sleep ESZOPICLONE [id number] Frederick Cervantes DO Start: 03-03-2015 End: 04-17-2015 ESZOPICLONE 1 MG TABS 1-3 ta bs at night as needed for sleep ESZOPICLONE [id number] Frederick Bardales Ravi DO 14 actuat fluticasone propionate 0.5 mg/actuat / salmeterol 0.05 mg/actuat dry powder inhaler (4 sources) Corticosteroid, beta2-Adrenergic Agonist End: 2014 ADVAIR DISKUS 500-50 MCG/DOSE AEPB 2 puffs in am and pm FLUTICASONE-SALMETEROL [id number] Delia Santoyo 120 actuat formoterol fumarate 0.005 mg/actuat / mometasone furoate 0.1 mg/actuat metered dose inhaler (6 sources) Corticosteroid, beta2-Adrenergic Agonist Start: 2014 End: 10-05-2015 DULERA 100-5 MCG/ACT AERO 1 puff in the morning MOMETASONE FURO-FORMOTEROL FUM [id number] Shirley Sethi LPN gabapentin 800 mg oral tablet (20 sources) Anti-epileptic Agent Start: 08-03-2014 End: 07-28-2023 take 1 tablet by mouth four times daily gabapentin (NEURONTIN) 800 mg tablet Take 1 tablet by mouth four times daily. 0 08/03/2014 07/28/2023 Discontinued Start: 2014 take 2 capsules by m outh four times daily GABAPENTIN 300 MG CAPS 2 capsules by mouth four times a day for neuropathy GABAPENTIN [id number] Shirley Sethi LPN Start: 2014 take 2 capsules by m outh twice daily GABAPENTIN 300 MG CAPS 2 capsules by mouth two times a day for neuropathy GABAPENTIN [id number] Frederick Freedmanutzman DO Start: 2014 take 2 tablets by mo uth twice daily GABAPENTIN 800 MG TABS Two tablets by mouth twice daily as prescribed by neurology GABAPENTIN [id number] Frederick Bardales Ravi End: 12-23-2012 take 1 tablet by mouth three times daily GABAPENTIN 300 MG CAPS One tablet by mouth three times daily GABAPENTIN [id number] Korey Mendoza Comment on above: Take 1 tablet by kathy th four times daily. GARCINIA CAMBOGIA-CHROMIUM (4 sources) Start: 2014 End: 12-08-2014 JAH CAMBOGIA-CHROMIUM 500-200 MG-MCG TABS Take 2 capsule 3 times a day for weight loss KINGINIA CAMBOGIA-CHROMIUM [id number] Korey Mendoza Start: 2014 JAH [place] RODRIGUE-CHROMIUM 500-200 MG-MCG TABS Take 2 capsule 3 times a day for weight loss KIGNINIA CAMBOGIA-CHROMIUM [id number] Frederick Cervantes DO HYDROcodone bitartrate 7.5 mg / ibuprofen 200 mg oral tablet (4 sources) Opioid Agonist, Nonsteroidal Anti-inflammatory Drug End: 12-23-2012 VICOPROFEN 7.5-200 MG TABS every 8 to 12 hours as needed for pain HYDROCODONE-IBUPROFEN [id number] Thu Mcdaniels ibuprofen 800 mg oral tablet (4 sources) Nonsteroidal Anti-inflammatory Drug End: 12-23-2012 IBUPROFEN 800 MG TABS take with tramadol IBUPROFEN [id number] Thu Mcdaniels 3 ml insulin lispro 100 unt/ml pen injector (4 sources) Insulin Analogue End: 12-08-2014 HUMALOG KWIKPEN SOLN 15 units on sliding scale INSULIN LISPRO (HUMAN) SOLN [id number] Thu Mcdaniels metFORMIN hydrochloride 500 mg oral tablet (10 sources) Biguanide Start: 04-03-2015 take 1 tablet by mouth twice daily METFORMIN HCL 500 MG TABS One tablet by mouth twice daily METFORMIN HCL [id number] Frederick Cervantes DO Start: 2014 End: 04-03-2015 take 1 tablet by mouth once daily METFORMIN HCL ER (OSM) 1000 MG [id number] One tablet by mouth once daily METFORMIN HCL [id number] Frederick Freedmanutztolu RAIN take 1 tablet by kathy th twice daily METFORMIN HCL ER (OSM) 1000 MG [id number] One tablet by mouth twice daily METFORMIN HCL [id number] Korey Mendoza 24 hr metoprolol succinate 100 mg extended release oral tablet (14 sources) beta-Adrenergic Yonny End: 07-28-2023 take 100 mg by mouth once daily metoprolol succinate ER (TOPROL XL) 100 mg Take 100 mg by mouth once daily. 0 07/28/2023 Discontinued (Discontinued by Patient) Comment on above: Take 100 mg by mouth once daily. MGM (4 sources) Start: 2014 MGM 1000 mg 1 tab 2-3 daily to help with pain. MGM Frederick Cervantes DO Start: 2014 End: 12-08-2014 MGM 1000 mg 1 tab 2-3 daily to help with pain. MGM Korey Mendoza mirtazapine 15 mg oral table t (8 sources) Start: 07-22-2014 End: 12-08-2014 MIRTAZAPINE 15 MG TABS 1 tab let by mouth at night for sleep MIRTAZAPINE [id number] Korey Mendoza Start: 06-08-2014 End: 06-22-2014 take 1 tablet by mouth once daily for sleep MIRTAZAPINE 15 MG TABS One tablet by mouth daily for moods and sleep MIRTAZAPINE [id number] Frederick Cervantes DO morphine sulfate 15 mg extended release oral tablet (8 sources) Opioid Agonist Start: 11-14-2014 End: 12-02-2014 take 1 tablet by mouth twice daily for pain MS CONTIN 15 MG CR-TABS One tablet by mouth twice daily for severe pain MORPHINE SULFATE [id number] Frederick Cervantes DO Start: 09-22-2014 End: 11-01-2014 take 1 tablet by mouth twice daily for pain MS CONTIN 15 MG CR-TABS One tablet by mouth twice daily for severe pain MORPHINE SULFATE [id number] Frederick Cervantes DO MULTIPLE VITAMINS-MINERALS (4 sources) take 1 tablet by kathy th once daily CENTRUM TABS One tablet by mouth daily MULTIPLE VITAMINS-MINERALS [id number] Delia Santoyo End: 09-03-2012 take 1 tablet by mouth once daily CENTRUM TABS One tablet by mouth daily MULTIPLE VITAMINS-MINERALS [id number] Korey Mendoza nortriptyline 10 mg oral capsule (4 sources) Tricyclic Antidepressant End: 05-29-2011 take 1 tablet by mouth once daily NORTRIPTYLINE HCL 10 MG CAPS One tablet by mouth daily every night NORTRIPTYLINE HCL [id number] Delia Santoyo insulin human, isophane 100 unt/ml injectable suspension (8 sources) Start: 03-03-2015 End: 05-01-2015 NOVOLIN N 100 UNIT/ML SUSP 50-50-75 per endo INSULIN NPH HUMAN (ISOPHANE) [id number] Frederick Bardales Ravi DO NOVOLIN N 100 UN IT/ML SUSP three times daily INSULIN NPH HUMAN (ISOPHANE) [id number] Korey Mendoza PIRBUTEROL ACETATE AERB (4 sources) End: 10-16-2016 MAXAIR AUTOHALER AERB 2 puff s daily PIRBUTEROL ACETATE AERB 61345893611 Delia Garcia GERIATRIC PERSONAL CARE AIDE MAXAIR AUTOHALER AERB 2 puffs daily PIRBUTEROL ACETATE AERB [id number] Delia Santoyo potassium (6 sources) Start: 04-20-2014 take 1 tablet by kathy th twice daily POTASSIMIN TABS One tablet by mouth twice daily POTASSIUM TABS [id number] Frederick Cervantes DO Start: 04-20-2014 End: 06-22-2014 take 1 tablet by mouth twice daily POTASSIMIN TABS One tablet by mouth twice daily POTASSIUM TABS [id number] Frederick Cervantes DO take 1 tablet by kathy th once daily POTASSIMIN TABS One tablet by mouth daily POTASSIUM TABS [id number] Thu Mcdaniels predniSONE 50 mg oral tablet (2 sources) Corticosteroid Start: 04-18-2014 End: 04-25-2014 take 1 tablet by mouth once daily PREDNISONE 50 MG TABS one tablet PO daily for 7 days for asthma exacerbation PREDNISONE [id number] Frederick Bardales Ravi DO PROBIOTIC PRODUCT (4 sources) Start: 2014 take 2 tablets by mouth once daily TRUBIOTICS CAPS 2 tabs by mouth daily for cleanse PROBIOTIC PRODUCT [id number] Frederick Bardales Ravi DO Start: 2014 End: 12-08-2014 take 2 tablets by mouth once daily TRUBIOTICS CAPS 2 tabs by mouth daily for cleanse PROBIOTIC PRODUCT [id number] Korey Susie Mendoza 24 hr propranolol hydrochloride 120 mg extended release oral capsule (2 sources) beta-Adrenergic Yonny PROPRANO LOL HCL ER 120 MG [id number] qd PROPRANOLOL HCL [id number] Delia Garcia NP raNITIdine 150 mg oral capsule (12 sources) Histamine-2 Receptor Antagonist Start: 01-03-20 End: 10-17-19 17 take 1 capsule by mouth twice daily RANITIDINE HCL 150 MG CAPS One capsule by mouth twice daily RANITIDINE HCL [id number] Frederick Cervantes DO Start: 12-02-2014 End: 10-16-2016 take 1 tablet by mouth once daily [facility] 150 MAXIMUM STRENGTH 150 MG TABS One tablet by mouth daily RANITIDINE HCL [id number] Delia Garcia NP rosuvastatin calcium 10 mg oral tablet (4 sources) HMG-CoA Reductase Inhibitor End: 2014 take 1 tablet by mouth once daily CRESTOR 10 MG TABS One tablet by mouth daily ROSUVASTATIN CALCIUM [id number] Frederick Freedmanutztolu RAIN senna leaves (4 sources) Start: 06-12-2015 End: 10-05-2015 take 2 tablets by mouth once daily for constipation, then take 8.6-50 tablets by mouth for constipation SENNA S 8.6-50 MG TABS 2 tabs by mouth every night for prevention of constipation SENNOSIDES-DOCUSAT E SODIUM [id number] Shirley Sethi LPN Start: 06-12-2015 take 2 tablets by mo uth once daily for constipation, then take 8.6-50 tablets by mouth for constipation SENNA S 8.6-50 MG TABS 2 tabs by mouth every night for prevention of constipation SENNOSIDES-DOCUSATE SODIUM [id number] Frederick Cervantes DO simvastatin 20 mg oral tablet (8 sources) HMG-CoA Reductase Inhibitor Start: 2014 End: 12-08-2014 take 1 tablet by mouth once daily for hyperlipidemia SIMVASTATIN 20 MG TABS 1 tablet by mouth every night for high cholesterol SIMVASTATIN [id number] Korey Mendoza End: 09-03-2012 take 1 tablet by mouth once daily SIMVASTATIN 20 MG TABS One tablet by mouth daily SIMVASTATIN [id number] Korey Mendoza sucralfate 100 mg/ml oral suspension (6 sources) Aluminum Complex Start: 12-02-2014 End: 10-16-2016 CARAFATE 1 GM/10ML SUSP 10 ml Four times daily - 1 hour before meals and at bedtime SUCRALFATE [id number] Delia Garcia NP suvorexant 10 mg oral tablet (14 sources) Orexin Receptor Antagonist Start: 08-05-2014 End: 08-23-2014 take 1 tablet by mouth once daily for sleep BELSOMRA 20 MG TABS One tablet by mouth daily at night for sleep SUVOREXANT [id number] Frederick Cervantes DO Start: 06-22-2014 End: 03-03-2015 take 1 tablet by mouth once daily BELSOMRA 10 MG TABS One tablet by mouth daily at night for insomnia SUVOREXANT [id number] Frederick Cervantes DO thyroxine (4 sources) l-Thyroxine End: 09-03-2012 take 1 tablet by mouth once daily LEVOTHROID 25 MCG TABS One tablet by mouth daily LEVOTHYROXINE SODIUM [id number] Korey Mendoza take 1 tablet by mouth once wan y LEVOTHROID 25 MCG TABS One tablet by mouth daily LEVOTHYROXINE SODIUM [id number] Thu Mcdaniels tiotropium 0.018 mg inhalant powder (4 sources) Anticholinergic Start: 03-03-2015 End: 10-05-2015 SPIRIVA HANDIHALER 18 MCG CAPS TIOTROPIUM BROMIDE MONOHYDRATE [id number] Shirley Sethi LPN traZODone hydrochloride 50 mg oral tablet (4 sources) Serotonin Reuptake Inhibitor Start: 2014 End: 05-11-2014 TRAZODONE HCL 50 MG TABS 1 tab at bedtime for sleeping TRAZODONE HCL [id number] Frederick Cervantes DO triamcinolone acetonide 5 mg/ml topical cream (4 sources) Corticosteroid Start: 08-11-2015 End: 10-05-2015 TRIAMCINOLONE ACETONIDE 0.5 % CREA apply to affected area twice daily as needed TRIAMCINOLONE ACETONIDE [id number] Shirley Sethi LPN 24 hr verapamil hydrochloride 240 mg extended release oral capsule (4 sources) Calcium Channel Yonny End: 2014 take 0.5 tablet by mouth once daily VERAPAMIL HCL ER 240 MG [id number] 1/2 tab One tablet by mouth daily VERAPAMIL HCL [id number] Korey Mendoza vitamin b 12 1 mg oral capsule (2 sources) Vitamin B12 B-12 1000 MCG CA PS qd CYANOCOBALAMIN [id number] Delia Garcia [employer] PERSON[employer] AIDE warfarin sodium 5 mg oral tablet (2 sources) Vitamin K Antagonist WARFARIN SO DIUM 5 MG TABS 2 q d WARFARIN SODIUM [id number] Delia Garcia NP Problems Active Problems Problem Classification Problem Date Documented Da te Episodic/Chronic Acquired foot deformities (11 sources) Hammer toe; Translations: [Other hammer toe(s) (acquired), right foot] Onset: 4 Chronic Acquired foot deformities (2 sources) Talipes planus; Translations: [Flat foot [pes planus] (acquired), right foot] Episodic Anxiety disorders (2 sources) Mixed anxiety and depressive disorder; Translations: [Other specified anxiety disorders] Onset: 5 2014 Chronic Asthma (20 sources) Asthma; Translations: [Unspecified asthma, uncomplicated] Onset: 3 Resolved: 5 2014 Chronic Cardiac and circulatory congenital anomalies (2 sources) Congenital malformation of heart, unspecified; Translations: [Atrial septal defect] Onset: 8 Chronic Chronic kidney disease (15 sources) Chronic kidney disease stage 3; Translations: [Chronic kidney disease stage 3B ] Onset: 5 Resolved: 5 11-09-2014 Chronic Chronic obstructive pulmonary disease and bronchiectasis (4 sources) Acute exacerbation of chronic obstructive airways disease with asthma; Translations: [Chronic obstructive pulmonary disease with (acute) exacerbation] Onset: 5 Resolved: 5 11-01-2014 Chronic Complications of surgical procedures or medical care (2 sources) Wound dehiscence; Translations: [Disruption of external operation (surgical) wound, not elsewhere classified, initial encounter] 08-21-2023 Episodic Coronary atherosclerosis and other heart disease (11 sources) Coronary arteriosclerosis; Translations: [Atherosclerotic heart disease of [place] coronary artery with other forms of angina pectoris] Onset: 4 07-29-2023 Chronic Diabetes mellitus with complications (20 sources) Type II diabetes mellitus uncontrolled; Translations: [Proliferative diabetic retinopathy] Onset: 1 Resolved: 3 2014 Chronic Diabetes mellitus without complication (2 sources) Type 2 diabetes mellitus; Translations: [Type 2 diabetes mellitus without complications] Chronic Disorders of lipid metabolism (20 sources) Hyperlipidemia; Translations: [Hyperlipidemia, unspecified] Onset: 3 2014 Chronic Esophageal disorders (20 sources) Gastroesophageal reflux disease; Translations: [Gastro-esophageal reflux disease without esophagitis] Onset: 6 06-12-2015 Chronic Essential hypertension (20 sources) Hypertensive disorder; Translations: [Essential (primary) hypertension] Onset: 3 2014 Chronic Genitourinary symptoms and ill-defined conditions (2 sources) Dysuria; Translations: [Dysuria] Episodic Mood disorders (4 sources) Depressive disorder; Translations: [Major depressive disorder, single episode, unspecified] Onset: 5 Resolved: 5 06-08-2014 Chronic Mycoses (6 sources) Onychomycosis; Translations: [Tinea unguium] Episodic Nutritional deficiencies (20 sources) Vitamin D deficiency; Translations: [Vitamin D deficiency, unspecified] Onset: 3 2014 Chronic Other and ill-defined heart disease (20 sources) Left ventricular diastolic dysfunction ; Translations: [Heart disease, unspecified] Onset: 5 03-19-2021 Chronic Other bone disease and musculoskeletal deformities (9 sources) History of amputation of left lesser toe; Translations: [Acquired absence of other left toe(s)] Episodic Other connective tissue disease (10 sources) Pain of toe of left foot; Translations: [Pain in left toe(s)] Episodic Other connective tissue disease (10 sources) Pain of toe of right foot; Translations: [Pain in right toe(s)] Episodic Other gastrointestinal disorders (2 sources) Irritable bowel syndrome; Translations: [Irritable bowel syndrome without diarrhea] Onset: 5 04-12-2014 Chronic Other hereditary and degenerative nervous system conditions (20 sources) Restless legs; Translations: [Restless legs syndrome] Onset: 3 2014 Chronic Other nervous system disorders (16 sources) Cervical myelopathy; Translations: [Disease of spinal cord, unspecified] Onset: 6 10-06-2015 Chronic Other nutritional; endocrine; and metabolic disorders (4 sources) Overweight; Translations: [Morbid obesity] Onset: 5 10-27-2016 Chronic Other nutritional; endocrine; and metabolic disorders (20 sources) Morbid obesity; Translations: [Morbid (severe) obesity due to excess calories] Onset: 4 03-14-2014 Chronic Other nutritional; endocrine; and metabolic disorders (8 sources) Body mass index 40+ - severely obese; Translations: [Morbid (severe) obesity due to excess calories] Onset: 4 08-12-2023 Chronic Other skin disorders (10 sources) Ingrowing nail; Translations: [Ingrowing nail] Episodic Other skin disorders (3 sources) Foot callus; Translations: [Corns and callosities] 11-13-2022 Episodic Pulmonary heart disease (20 sources) Chronic pulmonary embolism; Translations: [Chronic pulmonary [...] Onset: 5 Resolved: 5 04-14-2014 Chronic Unclassified (20 sources) Obstructive sleep apnea syndrome; Translations: [Obstructive sleep apnea (adult) (pediatric)] Onset: 4 03-03-2015 Chronic Unclassified (2 sources) Pre-surgery evaluation ; Translations: [Encounter for other preprocedural examination] Onset: 6 07-31-2015 Unclassified (1 source) Congenital malformation of heart, unspecified / Q24.9(ICD-10) Onset: 8 Unclassified (1 source) Atrial septal defect / Q21.1(ICD-10) Onset: 8 Unclassified (1 source) New Patient / [id number]() Onset: 8 Urinary tract infections (1 source) [...] cholecystitis] Onset: 10-23-2011 Resolved: 08-23-2014 08-23-2014 Episodic Chronic ulcer of skin (16 sources) Ulcer of toe; Translations: [Non-pressure chronic ulcer of other part of left foot with fat layer exposed] Onset: 05-09-2010 Resolved: 09-09-2012 Chronic Conditions associated with dizziness or vertigo (6 sources) Dysequilibrium syndrome; Translations: [Dizziness and giddiness] Onset: 11-01-2014 Resolved: 02-01-2015 11-07-2015 Episodic Fluid and electrolyte disorders (12 sources) Hypokalemia; Translations: [Hypokalemia] Onset: 04-11-2014 Resolved: 07-03-2016 04-11-2014 Episodic Gastritis and duodenitis (4 sources) Gastritis; Translations: [Gastritis, unspecified, without bleeding] Onset: 01-02-2015 Resolved: 02-01-2015 02-01-2015 Episodic Neoplasms of unspecified nature or uncertain behavior (4 sources) Neoplasm of uncertain behavior of skin; Translations: [Neoplasm of uncertain behavior of skin] Onset: 08-08-2009 Resolved: 08-23-2014 08-23-2014 Episodic Other circulatory disease (1 source) Other specified symptoms and signs involving the circulatory and respiratory systems; Translations: [Diminished pulses in lower extremity] Onset: 04-11-2023 Episodic Other connective tissue disease (8 sources) Pain in right arm; Translations: [Cramp] Onset: 07-22-2014 Resolved: 02-08-2015 02-01-2015 Episodic Other gastrointestinal disorders (2 sources) Drug-induced constipation; Translations: [Other constipation] Onset: 06-12-2015 06-12-2015 Episodic Other nervous system disorders (10 sources) Poor balance; Translations: [Other abnormalities of gait and mobility] Onset: 03-03-2013 Resolved: 07-03-2016 07-03-2016 Episodic Other non-traumatic joint disorders (10 sources) [...] Resolved: 04-13-2014 04-12-2014 Episodic Pulmonary heart disease (20 sources) H/O: pulmonary embolus; Translations: [Personal history of pulmonary embolism] Onset: 08-10-2018 08-10-2018 Episodic Spondylosis; intervertebral disc disorders; other back problems (20 sources) Acute low back pain; Translations: [Chronic low back pain] Onset: 03-14-2014 Resolved: 07-03-2016 05-08-2014 Episodic Unclassified (4 sources) C-reactive protein [...] Results Test Name Value Interpretation Reference Range Facility [facility] 12-23-2023 CNOV Office Visit (PODIWS ) WILDA WHITE ([id number]) 1950 F Date Time Provider Department 12/23/23 11:30 AM MERCEDES GUTIERREZ PODIWS During your visit today, we recorded the following information about you: Cheyenne Sánchez LPN 12/25/2023 9:48 PM Signed AMB ROOMING INTAKE FLOWSHEET DATA Pain Pain Location: Other: See Comment (bilateral feet) Description: Sore Duration Units: Months Frequency: Continuous Intervention/Comfort measure: Reposition, Relaxation Patient presents with: Left Foot - Established Patient, Follow Up, Diabetic Foot Check Right Foot - Established Patient, Follow Up, Diabetic Foot Check EDWARDO Cuellar Matthew 12/23/2023 11:51 AM Signed Diabetes Foot Care Instructions When you have [...] (or decreased sensation in your feet) a accountant auditor should always cut your toenails. Be Careful [...] Go to your health care provider or accountant auditor to treat these conditions. Mercedes Gutierrez 12/25/2023 9:48 PM Signed Last saw pcp: not in chart Subjective: This 73 year old female presents to clinic for diabetic foot check. Patient has denies any complaints. She has no complaints of open wounds since having the flexor tenotomy of left 2nd, 3rd and 5th toe. Patient admits to being diabetic for multiple (more content not included)... Normal [facility] CNOVon 09-22-2023 CNOV Office Visit (PODIWS ) WILDA WHITE ([id number]) 1950 F Date Time Provider Department 09/22/23 11:45 AM MERCEDES GUTIERREZ CHRISTEN During your visit today, we recorded the following information about you: Alicia Jara RN 09/23/2023 8:02 AM Signed Patient presents with: Left Foot - Established Patient, Follow Up, Post Op, Diabetic Foot Check Right Foot - Established Patient, Follow Up, Diabetic Foot Check Patient presents for 35 day follow up of Left 2nd, 3rd, and 5th toes flexor tenotomy that was performed 08/11/23. Denies any pain, toes are dry at this time. Patient also states that she needs her toenails trimmed. Due for diabetic foot check Mercedes Gutierrez 09/23/2023 8:02 AM Signed Last saw pcp: not in chart Subjective: Patient presents to clinic c/o painful toenails. They state that the nails are especially painful with shoe gear and pressure. Patient here also for follow-up left foot s/p open tenotomy of left 2nd, 3rd, 5th toes. She states her wounds are now healed. Doing well. Patient admits to being diabetic. No other pedal complaints at this time. Patient states no change in medications or medical history since last visit. Objective: Patient presents to clinic ambulating in diabetic shoe Vasc: DP and PT pulses are palpable bilateral. CFT is less than 5 seconds bilateral. Skin temperature is warm to cool proximal to distal bilateral. There is mild edema or varicosities noted. Neuro: Protective sensation is absent to the foot and toes when tested with the 5.07 SWM bilateral. Vibratory sensation is absent at the hallux IPJ bilateral. The hallux is downgoing bilateral. Derm: Nails 1-5 right and 1 left are discolored-yellow, thick, crumbly, dystrophic and with subungal debris. Skin is of normal turgor, texture and hair growth is present bilateral. There are no hyperkeratosis, ulcerations, scars, verruca or other lesions noted. Prior incisions of left 2nd, 3rd and 5th toe are now healed. Prior ulceration of left 2nd and left 5th toe are now healed. No signs of infection Ortho: large bunion is present to b/l feet. No calf pain present b/l. Assessment: (L60.0) Onychocryptosis (primary encounter diagnosis) (E08.42) Diabetic polyneuropathy associated with diabetes mellitus due to underlying condition (HCC) (M79.674) Pain in toe of right foot (M79.675) Pain in toe of left foot (M20.42) Hammertoe of left foot (L84) Callus of foot Plan: Patient was seen and evaluated. Nails 1-5 right and left hallux were debrided in length and thickness. All nails were then reduced with dremmel. Patient was instructed on the continued importance of diabetic foot care along with proper diet and keeping their blood sugar under control to prevent complications. Patient has neuropathy and stressed the importance of avoiding barefoot walkingand wearing good shoes. Patient is s/p open tenotomy of left 2nd, 3rd and 5th toes. The wounds are now healed. The incisions are now healed. No recurrent ulceration. Patient is very happy with outcome. Pics entered into [facility] Patient is to RTC in 3-4 months. Mercedes Gutierrez DPM Referring Provider: MERCEDES GUTIERREZ [[id number]] Allergies As of Date: 09/22/2023 Noted Allergy Reaction AMBIEN (ZOLPIDEM TARTRATE) 08/10/2018 14 - Other: See Comments Comments: Sleep walking CATS 07/10/2005 9 - Itching 12 - Shortness of Breath 14 - Other: See Comments Comments: Stuffy nose, itching in mouth CODEINE 08/12/2018 9 - Itching DOGS 07/10/2005 9 - Itching 12 - Shortness of Breath 14 - Other: See Comments Comments: Stuffy nose, itching in mouth LATEX 05/09/2010 2 - Rash 9 - Itching PRAVASTATIN 08/10/2018 17 - Myalgia SEASONAL ALLERGIES 09/06/2013 9 - Itching 14 - Other: See Comments Comments: Runny nose/eyes, sneezing Date Reviewed: 09/22/2023 Reviewed by: Alicia Jara, RN - Fully Assessed Reason for Visit: Established Patient [175] Follow Up [171] Post Op [174] Diabetic Foot Check [762] Established Patient [175] Follow Up [171] Diabetic Foot Check [762] Primary Visit Diagnosis:Onychocrypto sis [L60.0] Other Visit Diagnoses:Diabetic polyneuropathy associated with diabetes mellitus due to underlying condition (HCC) [E08.42] Pain in toe of right foot [M79.674] Pain in toe of left foot [M79.675] Hammertoe of left foot [M20.42] Callus of foot [L84] Prescriptions as of 09/23/2023 - doxycycline hyclate (VIBRAMYCIN) 100 mg capsule Take 1 capsule (100 mg) by mouth two times a day. - HYDROcodone-acetaminop hen (NORCO) 5-325 mg per tablet Take 1 tablet by mouth three times a day as needed for pain. - pregabalin (LYRICA) 75 mg capsule - pioglitazone (ACTOS) 15 mg tablet - omeprazole (PRILOSEC) 40 mg capsule Take 1 capsule by mouth once daily. - isosorbide mononitrate ER (IMDUR) 30 mg 24 hr tablet - hydroCHLOROthiazide 25 mg tablet - furosem (more content not included)... Normal [facility] CNOVon 09-01-2023 CNOV Office Visit (PODIWS ) WILDA WHITE ([id number]) 1950 F Date Time Provider Department 09/01/23 1:00 PM MERCEDES GUTIERREZ PODIWS During your visit today, we recorded the following information about you: Cheyenne Sánchez LPN 09/02/2023 6:45 AM Signed AMB ROOMING INTAKE FLOWSHEET DATA Patient presents with: Left Foot - Established Patient, Post Op EDWARDO Cuellar Matthew 09/01/2023 1:53 PM Signed Your incisions appear to be healing nicely Would cleanse wounds of 2nd, 3rd and 5th toe with saline/guaze daily Place topical antibiotic on 2nd toe. Can apply small amount to 3rd and 5th toe as needed. Ok to wear surgical shoe or diabetic shoe Do not shower until completely healed Would make follow-up in 2 weeks JONATHAN Abel Matthew 09/02/2023 6:45 AM Signed FOLLOW UP PODIATRIC OFFICE VISIT Chief Complaint: This 73 year old who presents for follow up:left 2nd, 3rd and 5th toe Patient presents to clinic for follow-up left 2nd, 3rd and 5th toe s/p open tenotomy Has wound dehiscence to left 2nd toe for which she is applying aquacel. Is using surgical shoe Feels the wound is progressing nicely PAIN EVALUATION No data found in the last 1 encounters. Hemoglobin A1C Date Value Ref Range Status 01/21/2019 7.8 (H) 4.3 - 6.0 % Final PCP: Frederick Cervantes DO PAST MEDICAL HISTORY Diagnosis Date Diastolic dysfunction, left ventricle 07/28/2014 06/13/2014 echocardiogram. Essential hypertension, benign Hallux valgus (acquired) 12/20/2010 Menopause SHANNON (obstructive sleep apnea) 08/01/14 Severe. 08/01/14 [facility] PSG with AHI 29.4-30.5. Corrected with 16 cm CPA with humidification. Poor balance 03/03/2013 Post-menopausal 09/09/2011 Sciatica of left side 03/14/2014 Due to lumbar spondylosis/stenosis. Type II or unspecified type diabetes mellitus without mention of complication, not stated as uncontrolled Unspecified asthma(493.90) Current Outpatient Medications Medication Sig doxycycline hyclate (VIBRAMYCIN) 100 mg capsule Take 1 capsule (100 mg) by mouth two times a day. HYDROcodone-acetaminop hen (NORCO) 5-325 mg per tablet Take 1 tablet by mouth three times a day as needed for pain. pregabalin (LYRICA) 75 mg capsule pioglitazone (ACTOS) 15 mg tablet omeprazole (PRILOSEC) 40 mg capsule Take 1 capsule by mouth once daily. isosorbide mononitrate ER (IMDUR) 30 mg 24 hr tablet hydroCHLOROthiazide 25 mg tablet furosemide (LASIX) 40 mg tablet Take 2 tablets by mouth every afternoon. ezetimibe (ZETIA) 10 mg tablet Take by mouth. amLODIPine (NORVASC) 5 mg tablet DULoxetine (CYMBALTA) 20 mg capsule Take 1 capsule by mouth once daily. traMADol (ULTRAM) 50 mg tablet Take 50 mg by mouth every 6 hours as needed for pain. (Patient not taking: Reported on 08/14/2023) meloxicam (MOBIC ORAL) Take by mouth. (Patient not taking: Reported on 07/28/2023) nystatin-triamcinolone (MYCOLOG) ointment Apply sparingly to perineum twice daily for irritation/infection. insulin 70/30 NPH/regular units/mL (NOVOLIN 70/30) 50 units sc at breakfast, 55 units at lunch, 82 units at supper. (Patient taking differently: 70/90 units depending on sugars) potassium chloride ER (K-DUR, KLOR-CON) 20 mEq tablet Take 1 tablet by mouth once daily. (Patient not taking: Reported on 07/28/2023) losartan (COZAAR) 100 mg tablet Take 1 tablet by mouth once daily. (Patient not taking: Reported on 07/28/2023) insulin needles, DISPOSABLE, (PEN NEEDLE) 31 X [...] anxious. NVSI unchanged from previous visit. Dermatological: Surgi (more content not included)... Normal [facility] CNPJoanne 08-29-2023 [facility] Telephone (PODIWS) WILDA WHITE ([id number]) 1950 F Date Time Provider Department 08/29/23 MERCEDES GUTIERREZ CHRISTEN During your visit today, we recorded the following information about you: Mercedes Gutierrez 08/29/2023 7:07 AM Signed Attempted to contact patient yesterday to see how she was doing. No answer. Left message for her to contact me should she have any issues Mercedes Gutierrez DPRodriguez Allergies As of Date: 08/29/2023 Noted Allergy Reaction AMBIEN (ZOLPIDEM TARTRATE) 08/10/2018 14 - Other: See Comments Comments: Sleep walking CATS 07/10/2005 9 - Itching 12 - Shortness of Breath 14 - Other: See Comments Comments: Stuffy nose, itching in mouth CODEINE 08/12/2018 9 - Itching DOGS 07/10/2005 9 - Itching 12 - Shortness of Breath 14 - Other: See Comments Comments: Stuffy nose, itching in mouth LATEX 05/09/2010 2 - Rash 9 - Itching PRAVASTATIN 08/10/2018 17 - Myalgia SEASONAL ALLERGIES 09/06/2013 9 - Itching 14 - Other: See Comments Comments: Runny nose/eyes, sneezing Date Reviewed: 08/21/2023 Reviewed by: Alicia Jara, RN - Fully Assessed Reason for Visit: Patient Update [1234] Prescriptions as of 08/29/2023 - doxycycline hyclate (VIBRAMYCIN) 100 mg capsule Take 1 capsule (100 mg) by mouth two times a day for 10 days. - doxycycline hyclate (VIBRAMYCIN) 100 mg capsule Take 1 capsule (100 mg) by mouth two times a day. - HYDROcodone-acetaminop hen (NORCO) 5-325 mg per tablet Take 1 tablet by mouth three times a day as needed for pain. - pregabalin (LYRICA) 75 mg capsule - pioglitazone (ACTOS) 15 mg tablet - omeprazole (PRILOSEC) 40 mg capsule Take 1 capsule by mouth once daily. - isosorbide mononitrate ER (IMDUR) 30 mg 24 hr tablet - hydroCHLOROthiazide 25 mg tablet - furosemide (LASIX) 40 mg tablet Take 2 tablets by mouth every afternoon. - ezetimibe (ZETIA) 10 mg tablet Take by mouth. - amLODIPine (NORVASC) 5 mg tablet - DULoxetine (CYMBALTA) 20 mg capsule Take 1 capsule by mouth once daily. - traMADol (ULTRAM) 50 mg tablet Take 50 mg by mouth every 6 hours as needed for pain. - meloxicam (MOBIC ORAL) Take by mouth. - nystatin-triamcinolone (MYCOLOG) ointment Apply sparingly to perineum twice daily for irritation/infection. - insulin 70/30 NPH/regular units/mL (NOVOLIN 70/30) 50 units sc at breakfast, 55 units at lunch, 82 units at supper. - potassium chloride ER (K-DUR, KLOR-CON) 20 mEq tablet Take 1 tablet by mouth once daily. - losartan (COZAAR) 100 mg tablet Take 1 tablet by mouth once daily. - insulin needles, DISPOSABLE, (PEN NEEDLE) 31 X 08/06 [facility] [place], [place] Ndle use as directed - ASPIRIN 81 MG TAB Take one (1) tablet daily . - REQUIP 4 MG TAB Take 1 tablet at bedtime as needed Meds Comments as of 07/19/2014: Problem List As Of Date 08/29/2023 Noted Resolved Type II or unspecified type diabetes mellitus w*05/08/2010 09/09/2012 Type 2 diabetes mellitus with diabetic polyneur*05/09/2000 Ulcer of other part of foot [L97.509] 05/09/2010 09/09/2012 Painful diabetic neuropathy [E11.40] 07/29/2011 Asthma [J45.909] 03/03/2013 Hypertension [I10] 03/03/2013 Restless leg syndrome [G25.81] 03/03/2013 Poor balance [R26.89] 03/03/2013 07/03/2016 Vitamin D deficiency [E55.9] 03/07/2013 Hyperlipidemia [E78.5] 03/07/2013 Morbid obesity (HCC) [E66.01] 03/14/2014 Sciatica of left side [M54.32] 03/14/2014 07/03/2016 Obstructive sleep apnea [G47.33] 03/14/2014 Diastolic dysfunction, left ventricle [I51.9] 07/28/2014 Hypokalemia [E87.6] 06/28/2015 07/03/2016 History of pulmonary embolus (PE) [Z86.711] 08/10/2018 Gastroesophageal reflux disease [K21.9] 06/12/2015 Chronic pulmonary embolism (HCC) [I27.82] 05/07/2017 Chronic back pain [M54.9, G89.29] 08/10/2018 Cervical myelopathy (HCC) [G95.9] 11/13/2022 Stage 3b chronic kidney disease (HCC) [N18.32] 07/29/2023 Coronary artery disease of [place] artery of [place]*07/29/2023 Obesity, Class III, BMI >= 40 [E66.01] 08/12/2023 Encounter Status:Closed by MERCEDES GUTIERREZ DPM on 08/29/23 [facility] CNOVon 08-21-2023 CNOV Office Visit (PODIWS ) WILDA WHITE ([id number]) 1950 F Date Time Provider Department 08/21/23 1:30 PM MERCEDES GUTIERREZ PODIWS During your visit today, we recorded the following information about you: Alicia Jara, RN 08/23/2023 3:42 PM Signed Patient presents with: Left Foot - Established Patient, Follow Up, Post Op Patient presents for 10 day post op hammer toe repair to left foot. Patient has been applying betadine to surgical site, using adaptic, lambs wool, and gauze wrap. Securing with nga wrap and wearing post op shoe. Patient states that she has been trying to stay off her feet and elevate them. Mercedes Gutierrez 08/21/2023 2:33 PM Addendum Apply betadine to left 2nd, 3rd and 5th toe incision daily Apply aquacel to the bottom of left 2nd toe Secure with guaze Take antibiotic as prescribed If you develop any redness, drainage, odor, present to the hospital If you have any questions, please contact dr gutierrez at [phone] you on doxycycline. Be careful with sun exposure. F/u in 1 week MariahomaSterlingew 08/23/2023 3:42 PM Signed FOLLOW UP PODIATRIC OFFICE VISIT Chief Complaint: This 73 year old who presents for follow up:left 2nd, left 3rd and left 5th flexor tenotomy. Patient presents to clinic for follow-up left 2nd, 3rd and 5th toe flexor tenotomy She had flexor tenotomy on august 06, 2023 for treatment of nonhealing ulceration of left 2nd toe. At time of surgery, she was found to have ulceration of left 5th toe. She elected to proceed with flexor tenotomy of left 2nd, 3rd and 5th toe. She is 10 days post-op. She is dressing the toes with betadine at site of prior ulceration and applying betadine and guaze to incision. She states she is trying to stay off her foot as much as possible. She has no pain. She has no other complaints. PAIN EVALUATION No data found in the last 1 encounters. Hemoglobin A1C Date Value Ref Range Status 01/21/2019 7.8 (H) 4.3 - 6.0 % Final PCP: Frederick Cervantes DO PAST MEDICAL HISTORY Diagnosis Date Diastolic dysfunction, left ventricle 07/28/2014 06/13/2014 echocardiogram. Essential hypertension, benign Hallux valgus (acquired) 12/20/2010 Menopause SHANNON (obstructive sleep apnea) 08/01/14 Severe. 08/01/14 [facility] PSG with AHI 29.4-30.5. Corrected with 16 cm CPA with humidification. Poor balance 03/03/2013 Post-menopausal 09/09/2011 Sciatica of left side 03/14/2014 Due to lumbar spondylosis/stenosis. Type II or unspecified type diabetes mellitus without mention of complication, not stated as uncontrolled Unspecified asthma(493.90) Current Outpatient Medications Medication Sig doxycycline hyclate (VIBRAMYCIN) 100 mg capsule Take 1 capsule (100 mg) by mouth two times a day. HYDROcodone-acetaminop hen (NORCO) 5-325 mg per tablet Take 1 tablet by mouth three times a day as needed for pain. pregabalin (LYRICA) 75 mg capsule pioglitazone (ACTOS) 15 mg tablet omeprazole (PRILOSEC) 40 mg capsule Take 1 capsule by mouth once daily. isosorbide mononitrate ER (IMDUR) 30 mg 24 hr tablet hydroCHLOROthiazide 25 mg tablet furosemide (LASIX) 40 mg tablet Take 2 tablets by mouth every afternoon. ezetimibe (ZETIA) 10 mg tablet Take by mouth. amLODIPine (NORVASC) 5 mg tablet DULoxetine (CYMBALTA) 20 mg capsule Take 1 capsule by mouth once daily. insulin 70/30 NPH/regular units/mL (NOVOLIN 70/30) 50 units sc at breakfast, 55 units at lunch, 82 units at supper. (Patient taking differently: 70/90 units depending on sugars) insulin needles, DISPOSABLE, (PEN NEEDLE) 31 X 5 Misc Ndle use as directed ASPIRIN 81 MG TAB Take one (1) tablet daily . REQUIP 4 MG TAB Take 1 tablet at bedtime as needed doxycycline hyclate (VIBRAMYCIN) 100 mg capsule Take 1 capsule (100 mg) by mouth two times a day for 10 days. traMADol (ULTRAM) 50 mg tablet Take 50 mg by mouth every 6 hours as needed for pain. (Patient not taking: Reported on 08/14/2023) meloxicam (MOBIC ORAL) Take by mouth. (Patient not taking: Reported on 07/28/2023) nystatin-triamcinolone (MYCOLOG) ointment Apply sparingly to perineum twice daily for irritation/infection. potassium chloride ER (K-DUR, KLOR-CON) 20 mEq tablet Take 1 tablet by mouth once daily. (Patient not taking: Reported on 07/28/2023) losartan (COZAAR) 100 mg tablet Take 1 tablet by mouth once daily. (Patient not taking: Reported on 07/28/2023) No current facility-administered medications for this visit. ALLERGIES Allergen Reactions Ambien [Zolpidem Ta* Other: See Comments Sleep walking Cats Itching, Shortness of Breath, Other: See Comments Stuffy nose, itching in mouth Codeine Itching Dogs Itching, Shortness of Breath, Other: See Comments Stuffy nose, itching in mouth Latex Rash, Itching Pravastatin Myalgia Seasonal Allergies Itching, Other: See Comments Runny nose/eyes, sneezing PAST SURGICAL HIS (more content not included)... Normal [facility] CNOVon 08-14-2023 CNOV Office Visit (PODIWS ) WILDA WHITE ([id number]) 1950 F Date Time Provider Department 08/14/23 1:00 PM MERCEDES GUTIERREZ PODIWS During your visit today, we recorded the following information about you: Cheyenne Sánchez LPN 08/16/2023 8:20 AM Signed AMB ROOMING INTAKE FLOWSHEET DATA Patient presents with: Left Foot - Established Patient, Post Op, Diabetic Foot Ulcer Patient present to office 3 days s/p Open tenotomy, left second, third and fifth toe EDWARDO Cuellar Matthew 08/14/2023 1:37 PM Signed Your incisions look to be healing nicely Slightly macerated (moist) Apply guaze between toes or lambs wool Apply betadine to incision You did have mrsa from the fifth toe. Take doxycycline 100 mg twice daily Follow-up in one week Can stop the augmetin Mercedes Gutierrez 08/16/2023 8:20 AM Signed FOLLOW UP PODIATRIC OFFICE VISIT Chief Complaint: This 73 year old who presents for follow up:flexor tenotomy of left 2nd, 3rd and 5th toe. Patient presents to clinic for follow-up flexor tenotomy of left 2nd, 3rd and 5th toe Patient has no pain. Is currently taking cipro for presumed urinary tract infection and taking augmentin. Is currently applying betadine to incision and to wound of left 2nd and left 5th toe No other complaints. PAIN EVALUATION No data found in the last 1 encounters. Hemoglobin A1C Date Value Ref Range Status 01/21/2019 7.8 (H) 4.3 - 6.0 % Final PCP: Frederick Cervantes DO PAST MEDICAL HISTORY Diagnosis Date Diastolic dysfunction, left ventricle 07/28/2014 06/13/2014 echocardiogram. Essential hypertension, benign Hallux valgus (acquired) 12/20/2010 Menopause SHANNON (obstructive sleep apnea) 08/01/14 Severe. 08/01/14 [facility] PSG with AHI 29.4-30.5. Corrected with 16 cm CPA with humidification. Poor balance 03/03/2013 Post-menopausal 09/09/2011 Sciatica of left side 03/14/2014 Due to lumbar spondylosis/stenosis. Type II or unspecified type diabetes mellitus without mention of complication, not stated as uncontrolled Unspecified asthma(493.90) Current Outpatient Medications Medication Sig doxycycline hyclate (VIBRAMYCIN) 100 mg capsule Take 1 capsule (100 mg) by mouth two times a day. HYDROcodone-acetaminop hen (NORCO) 5-325 mg per tablet Take 1 tablet by mouth three times a day as needed for pain. ciprofloxacin HCl (CIPRO) 500 mg tablet Take 1 tablet by mouth two times a day for 7 days. FOR 7 DAYS. amoxicillin-clavulanat e potassium (AUGMENTIN) 875-125 mg per tablet Take 1 tablet by mouth two times a day for 7 days. FOR 7 DAYS. pregabalin (LYRICA) 75 mg capsule pioglitazone (ACTOS) 15 mg tablet omeprazole (PRILOSEC) 40 mg capsule Take 1 capsule by mouth once daily. isosorbide mononitrate ER (IMDUR) 30 mg 24 hr tablet hydroCHLOROthiazide 25 mg tablet furosemide (LASIX) 40 mg tablet Take 2 tablets by mouth every afternoon. ezetimibe (ZETIA) 10 mg tablet Take by mouth. amLODIPine (NORVASC) 5 mg tablet DULoxetine (CYMBALTA) 20 mg capsule Take 1 capsule by mouth once daily. insulin 70/30 NPH/regular units/mL (NOVOLIN 70/30) 50 units sc at breakfast, 55 units at lunch, 82 units at supper. (Patient taking differently: 70/90 units depending on sugars) insulin needles, DISPOSABLE, (PEN NEEDLE) 31 X 08/06 Misc Ndle use as directed ASPIRIN 81 MG TAB Take one (1) tablet daily . REQUIP 4 MG TAB Take 1 tablet at bedtime as needed traMADol (ULTRAM) 50 mg tablet Take 50 mg by mouth every 6 hours as needed for pain. (Patient not taking: Reported on 08/14/2023) meloxicam (MOBIC ORAL) Take by mouth. (Patient not taking: Reported on 07/28/2023) nystatin-triamcinolone (MYCOLOG) ointment Apply sparingly to perineum twice daily for irritation/infection. potassium chloride ER (K-DUR, KLOR-CON) 20 mEq tablet Take 1 tablet by mouth once daily. (Patient not taking: Reported on 07/28/2023) losartan (COZAAR) 100 mg tablet Take 1 tablet by mouth once daily. (Patient not taking: Reported on 07/28/2023) No current facility-administered medications for this visit. [...] 73 year old female who is alert, orie (more content not included)... [facility] HNO ID: [id number] Author: FERNANDEZ ARECHIGA CT Service: Radiology Author Type: Technologist Type: Allied Health Filed: 08/11/2023 10:43 Note Text: Radiology Service Progress Note PATIENT NAME: Wilda White DATE OF SERVICE: August 11, 2023 TIME: 10:42 AM PATIENT IDENTITY VERIFICATION COMPLETED USING TWO (2) IDENTIFIERS: Name and Date of confirmed by patient verbally. FALL SCREENING: Has the patient had 2 falls in the last year or 1 fall with injury or currently using an Ambulatory Assistive Device (Walker, Cane, Wheelchair, Crutches, etc.)? No PATIENT GENDER DATA: Female. status: : No status: NO. PATIENT RELEVANT IMPLANT DATA REVIEWED: Not Applicable PATIENT PRESENTS WITH AN IMPLANTABLE OR ATTACHED ROLLER PICKER: No RADIOLOGY DEPARTMENT: General X-ray: Exam(s) Completed: Lower Extremity X-Ray(s): Foot, Left PERIPHERAL IV DATA: Not applicable SIGNED BY: Fernandez TayMIKE hall August 11, 2023 10:42 AM [facility] ANES POSTPROC EVALon 024 ANES POSTPROC EVAL HNO ID: [id number] Author: BLACK POOLE MD Service: Anesthesiology Author Type: Anesthesiologist Type: Anesthesia Postprocedure Evaluation Filed: 08/11/2023 09:40 Note Text: POST ANESTHESIA EVALUATION NOTE : 1950 Procedure Summary Date: 08/11/23 Room / Location: [facility] OR / [facility] OR Anesthesia Start: 740 Anesthesia Stop: 855 Procedure: TENOTOMY FOOT FLEXOR, OPEN (Left) Diagnosis: Hammer toe of left foot (Hammer toe of left foot [M20.42]) Surgeons: Mercedes Gutierrez Responsible Provider: Black Poole MD Anesthesia Type: MAC ASA Status: 3 Anesthesia Type: MAC Last Vitals Vitals Value Taken Time BP 172/79 08/11/23 0931 Temp 36.5 ?C (97.7 ?F) 08/11/23 0904 Pulse 87 08/11/23 0938 Resp 21 08/11/23 0938 SpO2 89 % 08/11/23 0938 Vitals shown include unfiled device data. Post Anesthesia Patient Status Patient Evaluation: bedside. Anticipated Disposition: phase 2 then home. Neurological Status: aware and responsive. Pulmonary Status: breathing comfortably on room air Airway Control: returned to baseline unsupported. Cardiovascular Status: stable. Pain Management: clinically adequate Postoperative Hydration: acceptable. Intraoperative Events: no significant anesthesia events Post Operative Nausea/Vomiting Status: no significant post operative nausea or vomiting Recommendation: continue current plan of care. Anesthesia Observations No Documentation SIGNATURE: Black Poole MD PATIENT NAME: Wilda White DATE: August 11, 2023 TIME: 9:40 AM CSN: [id number] [facility] ANES PRE-OPon 08-11-2023 ANES PRE-OP HNO ID: [id number] Author: BLACK POOLE MD Service: Anesthesiology Author Type: Anesthesiologist Type: Anesthesia Preprocedure Evaluation Filed: 08/11/2023 06:51 Note Text: ANESTHESIOLOGY DAY OF SURGERY NOTE : 1950 Procedure Information Date/Time: 08/11/23729 Procedure: TENOTOMY FOOT FLEXOR, OPEN (Left) Location: [facility] OR01 / [facility] OR Surgeons: Mercedes Gutierrez Estimated body mass index is 44.46 kg/m? as calculated from the following: Height as of 07/28/23: 162.6 cm (5' 4 ). Weight as of 07/28/23: 117.5 kg (259 lb). Most recent hematocrit and potassium results: Hematocrit 31.7 02/14/2019 Potassium 4.5 07/11/2021 Relevant Problems ANESTHESIA (+) Obstructive sleep apnea CARDIO (+) Chronic pulmonary embolism (HCC) (+) Coronary artery disease of [place] artery of [place] heart with stable angina pectoris ([facility]) (+) Hypertension ENDO (+) Type 2 diabetes mellitus with diabetic polyneuropathy, with long-term current use of insulin ([facility]) GI (+) Gastroesophageal reflux disease -RENAL (+) Stage 3b chronic kidney disease (HCC) NEURO-PSYCH (+) History of pulmonary embolus (PE) PULMONARY (+) Asthma (+) Obstructive sleep apnea I - PHYSICAL EVALUATION AIRWAY Patient intubated: No. Tracheostomy tube not present Mallampati: II. TM distance: >3 FB. Neck ROM: full ROM without neurological symptoms. Mouth opening: adequate. Short neck: no. Thick neck: no DENTAL Dental findings: edentulous. Dentures, upper: complete. Dentures, lower: complete. II - ANESTHESIA PLAN ASA Score: 3 Anesthetic Plan: MAC The patient is not a current smoker. NPO Status: adequate Anesthetic plan additional comments: Possible LMA. Beta Yonny Monitoring Plan Monitoring plan: standard ASA. Post Procedure Analgesic Plan Postoperative analgesic plan: parenteral or oral opioids and multimodal analgesia. Informed Consent Anesthetic risks, benefits, alternatives, personnel and consent discussed: yes. Patient / Responsible Democrat agrees to proceed: yes Patient / Surrogate agrees to blood products: blood products not planned DNR status not reviewed with patient and/or family prior to surgery. Significant changes in the patient condition since the History and Physical, not otherwise documented in primary service progress note: no. Potential Anesthesia issues that may suggest increased risk of complications or contraindication to planned procedure: none. Discussed the possibility of lip / dental damage: yes No vitals data found for the desired time range. Facility-Administered Medications as of 08/11/2023 Medication Dose Route Frequency acetaminophen 1,000 mg tab(s) (TYLENOL) 1,000 mg ORAL Pre-Op Once famotidine 20 mg injection (PEPCID) 20 mg INTRAVENOUS ONCE promethazine 12.5 mg tab(s) (PHENERGAN) 12.5 mg ORAL Pre-Op Once lidocaine (PF) 10 mg/mL (1 %) 1-2 mg injection (XYLOCAINE) 0.1-0.2 mL INTRADERMAL PRN lactated ringers iv infusion 5-30 mL/hr INTRAVENOUS CONTINUOUS NaCl 0.9% iv flush bag 20 mL INTRAVENOUS PRN ceFAZolin iv piggyback 2 g in D5W (iso-osmotic) 100 mL (ANCEF) 2 g INTRAVENOUS Pre-Op Once Outpatient Medications as of 08/11/2023 Medication Sig pregabalin (LYRICA) 75 mg capsule ezetimibe (ZETIA) 10 mg tablet Take by mouth. amLODIPine (NORVASC) 5 mg tablet insulin 70/30 NPH/regular units/mL (NOVOLIN 70/30) 50 units sc at breakfast, 55 units at lunch, 82 units at supper. (Patient taking differently: 70/90 units depending on sugars) REQUIP 4 MG TAB Take 1 tablet at bedtime as needed pioglitazone (ACTOS) 15 mg tablet hydroCHLOROthiazide 25 mg tablet furosemide (LASIX) 40 mg tablet Take 2 tablets by mouth every afternoon. meloxicam (MOBIC ORAL) Take by mouth. (Patient not taking: Reported on 07/28/2023) nystatin-triamcinolone (MYCOLOG) ointment Apply sparingly to perineum twice daily for irritation/infection. potassium chloride ER (K-DUR, KLOR-CON) 20 mEq tablet Take 1 tablet by mouth once daily. (Patient not taking: Reported on 07/28/2023) losartan (COZAAR) 100 mg tablet Take 1 tablet by mouth once daily. (Patient not taking: Reported on 07/28/2023) insulin needles, DISPOSABLE, (PEN NEEDLE) 31 X 16 Misc Ndle use as directed ASPIRIN 81 MG TAB Take one (1) tablet daily . I have interviewed and examined the patient. I have reviewed the medical record and/or the pre-anesthesia evaluation, pertinent labs, and test results. This contains updated information obtained within 48 hours of Surgery/Procedure. SIGNATURE: Black Poole MD PATIENT NAME: Wilda White DATE: August 11, 2023 TIME: 6:50 AM CSN: [id number] [facility] BRIEF OP NOTon 08-11-2023 BRIEF OP NOT HNO ID: [id number] Author: MERCEDES GUTIERREZ, ? Service: ? Author Type: Physician Type: Brief Op Note Filed: 08/11/2023 08:57 Note Text: BRIEF OPERATIVE / PROCEDURE NOTE LOG ID: [id number] SURGERY/PROCEDURE DATE: 08/11/2023 INCISION/PROCEDURE START TIME: 8:03 AM INCISION CLOSE/PROCEDURE END TIME: 8:48 AM SURGEON(S)/PROCEDURALI ST(S) AND RESPIRATORY CLINICIAN(S): Surgeon(s) and Role: * Mercedes Gutierrez - Primary * Kali Ellis DPM - Resident - Assisting No Additional Staff SURGERY/PROCEDURE(S): open flexor tenotomy, left 2nd, 3rd and 5th toe ANESTHESIA: Monitored Anesthesia Care FINDINGS: ulceration of left 2nd and 5th toe. Increased pressure to lateral aspect of left 3rd toe. Successful tenotomy, left 2nd, 3rd and 4th toe ESTIMATED BLOOD LOSS: 2 mls SPECIMENS: wound culture, left 3rd toe COMPLICATIONS: None CLOSURE TECHNIQUE: Primary PRE-OP/PRE-PROCEDURE DIAGNOSIS: hammertoe, left 2nd, 3rd and 4th toe. Ulceration of left 2nd and 5th toe POST-OP/POST-PROCEDURE DIAGNOSIS: same SIGNATURE: Mercedes Gutierrez DPM PATIENT NAME: Wilda White DATE: August 11, 2023 TIME: 8:56 AM [facility] Bacteria Spec Anaerobe Culto n 08-11-2023 Bacteria identified Anaer cx Nom (Unsp spec) Negative [facility] Comment on above: Performed By: #### 6 [id number], 635-3 #### [facility] CLIA [id number] [address] [place] [address] [place] Bacteria Ur Culton Bacteria identified Cx Nom (U) ORGANISM ID: 1 <10,000 CFU/ml Normal urogenital ousmane [facility] Comment on above: Performed By: #### 6 30-4 #### [facility] CLIA [id number] [address] [place] [address] [place] Bacteria Wnd Culton 08-11-19 24 Bacteria identified Cx Nom (Wound) ORGANISM ID: 1 Rare Methicillin-RESISTANT Staphylococcus aureus (MRSA) GRAM STAIN: No organisms seen No Polymorphonuclear Leukocytes ORGANISM ID: 1 (METHICILLIN RESISTANT STAPHYLOCOCCUS AUREUS) -- ANTIBIOTIC INTERPRETATION MARIEL STATUS REFERENCE RANGE -- Oxacillin R >=4 F Susceptible <=2 , Resistant >2 Oxacillin resistant Staphylococci are resistant to all beta-lactam antibiotics (except new cephalosporins with anti-MRSA activity i.e. ceftaroline) Erythromycin R >=8 F Susceptible <=0.5 , Intermediate >.5 , Resistant >4 Clindamycin R >=4 F Susceptible <=0.5 , Intermediate >.5 , Resistant >2 Trimeth sulfameth S <=10 F Susceptible <=40 , Resistant >40 Vancomycin S 1 F Susceptible <=2 , Intermediate >2 , Resistant >8 Daptomycin S 0.5 F Susceptible <=1 , Nonsusceptible >1 Linezolid S 4 F Susceptible <=4 , Resistant >4 Rifampin S <=0.5 F Susceptible <=1 , Intermediate >1 , Resistant >2 Rifampin should not be used alone for antimicrobial therapy. Levofloxacin R >=8 F Susceptible <=1 , Intermediate >1 , Resistant >2 Tetracycline S <=1 F Susceptible <=4 , Intermediate >4 , Resistant >8 Doxycycline S <=0.5 F Susceptible <=4 , Intermediate >4 , Resistant >8 Abnormal [facility] Comment on above: Performed By: #### 6 [id number], 635-3 #### [facility] CLIA [id number] [address] [place] [address] [facility] CNPJoanne 08-11-2023 NIKUNJN Telephone (PODIWS) WILDA WHITE ([id number]) 1950 F Date Time Provider Department 08/11/23 MERCEDES GUTIERREZ PODIWS During your visit today, we recorded the following information about you: Allergies As of Date: 08/11/2023 Noted Allergy Reaction AMBIEN (ZOLPIDEM TARTRATE) 08/10/2018 14 - Other: See Comments Comments: Sleep walking CATS 07/10/2005 9 - Itching 12 - Shortness of Breath 14 - Other: See Comments Comments: Stuffy nose, itching in mouth CODEINE 08/12/2018 9 - Itching DOGS 07/10/2005 9 - Itching 12 - Shortness of Breath 14 - Other: See Comments Comments: Stuffy nose, itching in mouth LATEX 05/09/2010 2 - Rash 9 - Itching PRAVASTATIN 08/10/2018 17 - Myalgia SEASONAL ALLERGIES 09/06/2013 9 - Itching 14 - Other: See Comments Comments: Runny nose/eyes, sneezing Date Reviewed: 08/11/2023 Reviewed by: Heather Skinner RN - Fully Assessed Order(s):ciprofloxacin HCl (CIPRO) 500 mg tabletTake 1 tablet by mouth two times a day for 7 days. FOR 7 DAYS.Disp: 14 tabletRfl: 0 amoxicillin-clavulanat e potassium (AUGMENTIN) 875-125 mg per tabletTake 1 tablet by mouth two times a day for 7 days. FOR 7 DAYS.Disp: 14 tabletRfl: 0 Prescriptions as of 08/11/2023 - ciprofloxacin HCl (CIPRO) 500 mg tablet Take 1 tablet by mouth two times a day for 7 days. FOR 7 DAYS. - amoxicillin-clavulanat e potassium (AUGMENTIN) 875-125 mg per tablet Take 1 tablet by mouth two times a day for 7 days. FOR 7 DAYS. - pregabalin (LYRICA) 75 mg capsule - pioglitazone (ACTOS) 15 mg tablet - omeprazole (PRILOSEC) 40 mg capsule Take 1 capsule by mouth once daily. - isosorbide mononitrate ER (IMDUR) 30 mg 24 hr tablet - hydroCHLOROthiazide 25 mg tablet - furosemide (LASIX) 40 mg tablet Take 2 tablets by mouth every afternoon. - ezetimibe (ZETIA) 10 mg tablet Take by mouth. - amLODIPine (NORVASC) 5 mg tablet - DULoxetine (CYMBALTA) 20 mg capsule Take 1 capsule by mouth once daily. - traMADol (ULTRAM) 50 mg tablet Take 50 mg by mouth every 6 hours as needed for pain. - meloxicam (MOBIC ORAL) Take by mouth. - nystatin-triamcinolone (MYCOLOG) ointment Apply sparingly to perineum twice daily for irritation/infection. - insulin 70/30 NPH/regular units/mL (NOVOLIN 70/30) 50 units sc at breakfast, 55 units at lunch, 82 units at supper. - potassium chloride ER (K-DUR, KLOR-CON) 20 mEq tablet Take 1 tablet by mouth once daily. - losartan (COZAAR) 100 mg tablet Take 1 tablet by mouth once daily. - insulin needles, DISPOSABLE, (PEN NEEDLE) 31 X 08/06 [facility] [place], [place] Ndle use as directed - ASPIRIN 81 MG TAB Take one (1) tablet daily . - REQUIP 4 MG TAB Take 1 tablet at bedtime as needed Facility-Administered Medications as of 08/11/2023 - lactated ringers iv infusion - fentaNYL 50 mcg/mL 50 mcg injection (SUBLIMAZE) - oxyCODONE IR 5 mg tab(s) (ROXICODONE) - ondansetron orally disintegrating 4 mg tab(s) (ZOFRAN ODT) - ondansetron (PF) 4 mg injection (ZOFRAN) - meperidine (PF) 12.5 mg injection (DEMEROL) Meds Comments as of 07/19/2014: Problem List As Of Date 08/11/2023 Noted Resolved Type II or unspecified type diabetes mellitus w*05/08/2010 09/09/2012 Type 2 diabetes mellitus with diabetic polyneur*05/09/2000 Ulcer of other part of foot [L97.509] 05/09/2010 09/09/2012 Painful diabetic neuropathy [E11.40] 07/29/2011 Asthma [J45.909] 03/03/2013 Hypertension [I10] 03/03/2013 Restless leg syndrome [G25.81] 03/03/2013 Poor balance [R26.89] 03/03/2013 07/03/2016 Vitamin D deficiency [E55.9] 03/07/2013 Hyperlipidemia [E78.5] 03/07/2013 Morbid obesity (HCC) [E66.01] 03/14/2014 Sciatica of left side [M54.32] 03/14/2014 07/03/2016 Obstructive sleep apnea [G47.33] 03/14/2014 Diastolic dysfunction, left ventricle [I51.9] 07/28/2014 Hypokalemia [E87.6] 06/28/2015 07/03/2016 History of pulmonary embolus (PE) [Z86.711] 08/10/2018 Gastroesophageal reflux disease [K21.9] 06/12/2015 Chronic pulmonary embolism (HCC) [I27.82] 05/07/2017 Chronic back pain [M54.9, G89.29] 08/10/2018 Cervical myelopathy (HCC) [G95.9] 11/13/2022 Stage 3b chronic kidney disease (HCC) [N18.32] 07/29/2023 Coronary artery disease of [place] artery of [place]*07/29/2023 Prescriptions ordered this encounter Disp Refills Start End CIPROFLOXACIN 500 MG TABLET 14 t* 0 08/11/2023 08/18/2023 Route: ORAL Sig: Take 1 tablet by mouth two times a day for 7 days. FOR 7 DAYS. AMOXICILLIN 875 MG-POTASSIUM CLAVULA* 14 t* 0 08/11/2023 08/18/2023 Route: ORAL Sig: Take 1 tablet by mouth two times a day for 7 days. FOR 7 DAYS. Encounter Status:Closed by MERCEDES GUTIERREZ DPM on 08/11/23 Normal [facility] Microorganism Spec Culton Microorganism identified Cx Nom (Unsp spec) CULTURE, FUNGAL: No Fungus isolated after 28 days FUNGAL SMEAR: No fungus seen [facility] Comment on above: Performed By: #### 1 [id number] #### [facility] CLIA [id number] [address] [place] [address] OPERATIVE NOon 08-11-2023 OPERATIVE NO HNO ID: [id number] Author: MERCEDES GUTIERREZ, ? Service: ? Author Type: Physician Type: Operative Report Filed: 08/11/2023 22:41 Note Text: OPERATIVE/PROCEDURE REPORT LOG ID: [id number] SURGERY/PROCEDURE DATE: 08/11/2023 INCISION/PROCEDURE START TIME: 8:03 AM INCISION CLOSE/PROCEDURE END TIME: 8:48 AM SURGEON(S)/PROCEDURALI ST(S) AND RESPIRATORY CLINICIAN(S): Surgeon(s) and Role: * Mercedes Gutierrez - Primary * Kali Ellis DPM - Resident - Assisting No Additional Staff SURGERY/PROCEDURE(S): Open flexor tenotomy, left 2nd toe Open flexor tenotomy, left 3rd toe Open flexor tenotomy, left 5th toe Debridement of ulceration left 2nd toe (cpt 76687) Debridement of ulceratoin Left 5th toe (cpt 18617) ANESTHESIA: Monitored Anesthesia Care SURGERY/PROCEDURE DETAILS: Patient is a 73 year old female who has hammertoe deformity of left 2nd, 3rd and 5th toe combined 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 She is a diabetic with neuropathy. Due the hammertoe combined with neuropathy, she has developed recurrent callus and even ulceration of left 2nd toe. She has tried conservative care by way of hammertoe pad and diabetic shoes. Despite efforts to eliminate pressure of left 2nd toe, she continues to develop wounds to the left 2nd toe. I recently saw patient and we discussed a flexor tenotomy of the left 2nd toe to help reduce contracture, thereby allowing load to be diminished to the distal tuft. I informed patient that the deformity of left 2nd toe is semi-reducible such that complete correction by way of tenotomy alone is not likely possible but I still do feel that tenotomy will help to reduce contracture thereby helping to heal the wound of left 2nd toe. I discussed risks of the procedure not limited to infection, pain, swelling, bleeding, slow wound healing, recurrent ulceration, inability to correct deformity, loss of toe. Patient originally consented to proceed with flexor tenotomy of left 2nd toe. On the day of surgery, patient was found to have diffuse callus of left 2nd toe and superficial blister/ulceration of left 5th toe. The wound to the left fifth toe is new. I informed her that further evaluation of both wounds was necessary to determine the best approach for patient now with a new ulceraiton of left 5th toe. I cleansed both the left 2nd toe and left 5th toe with alcohohol. Using a tissue nipper, the left 2nd toe callus was debrided. There is a superficial wound, about 2 mm in diameter and less than 1 mm in depth. There are no signs of infection of left the 2nd toe. I directed my attention to the left 5th toe. Using the tissue nippers, the left 5th toe was debrided of nonviable tissue. There is a ulceration of the left 5th toe that is approximately 5 mm in diameter. There is no exposed bone. Slight serous drainage but no pus. Wound debridement of left 2nd toe was performed of nonviable tissue with tissue nippers. Total debridement was 2 mm x 2 mm x 1 mm. Wound debridement of left 5th toe was performed of nonviable tissue with tissue nippers. Total debridement was 5 mm x 5 mm x 1 mm. The plan prior to today was to proceed with just flexor tenotomy of the left 2nd toe. Her left 3rd and left 5th toe are reducible in appearance. I discussed the new wound of left 5th toe. I do have concerns that just leaving this wound without addressing the underlying toe deformity will possibly lead to further deepening of the wound and likely lead to possible bone infection. I discussed flexor tenotomy of the left 5th toe. Patient would like to proceed with tenotomy of both 2nd and 5th toe. Lastly, she does have contracture of left 3rd toe. While no ulceration is noted, there is increased pressure to the lateral aspect of left 3rd toe. I do have concerns that if the 2nd and 5th toe is corrected, this will lead to wounds of the left 3rd toe. Being that this left 5th toe developed wound very rapidly, we discussed monitoring the 3rd toe and watching for wounds vs doing tenotomy today or in future. Patient would like to proceed with tenotomy today. She does not wish to wait and have to pursue surgery at a later time. I informed her that there is risks involved with doing tenotomy of 3rd toe especially when there is wounds to the 2nd and 5th toe. I informed her that she could be at risk of infection, slow healing due to diabetes, loss of toe. She understands this but would like to proceed with tenotomy of left 2nd, 3rd and 5th toe. Patient consents to proceed with tenotomy of left 2nd, 3rd and 5th toe. It should be noted that prior to her procedure, she did have A1c that was 8.7. I informed her that she is at risk of slow healing. She understands this. She understands that if surgery is not performed, she is at risk of worsening wounds. She consents to proceed. She was transferred to the operating room and placed on the operating room table in the supine position. She was placed under monitored (more content not included)... [facility] XR FOOT 3V AP/LAT/OBL LTon 0 08-11-2023 XR FOOT 3V AP/LAT/OBL LT * * *Final Report* * * DATE OF EXAM: Aug 11 2023 9:50AM MDX [id number] - XR FOOT 3V AP/LAT/OBL LT / PROCEDURE REASON: Post-operative / post-procedure assessment * * * * Physician Interpretation * * * * EXAMINATION / TECHNIQUE: XR FOOT 3V AP/LAT/OBL LT PATIENT/TECHNOLOGIST PROVIDED HISTORY: POST-OP TENOTOMY OF LEFT 2ND, 3RD and 5TH TOES CLINICAL INFORMATION ( PROVIDED BY ORDERING CLINICIAN) : Post-operative / post-procedure assessment COMPARISON: 04/03/2023 RESULT: Surgical changes from amputation of fourth digit at the MTP joint. Unchanged hallux valgus deformity with degenerative change at the hallux MTP joint. Chronic lateral subluxation and flexion deformities of the second and third digits at the MTP joints. No acute fracture. No radiographic evidence of osteomyelitis. Soft tissue irregularity of the little toe tuft. No soft tissue gas. IMPRESSION: No acute osseous abnormality. Postoperative and degenerative changes as described. Consumer Insight Analyst: PSCB Transcribe Date/Time: Aug 11 2023 11:24A Dictated by : TERI JEROME MD This examination was interpreted and the report reviewed and electronically signed by: TERI JEROME MD on Aug 11 2023 11:29AM EST [id number] Normal [facility] HISTORY PHYSICALon HISTORY PHYSICAL HNO ID: [id number] Author: JENNIFER POND PA-C Service: ? Author Type: Physician Plush Brusher Type: H&P Filed: 07/29/2023 14:35 Note Text: HISTORY AND PHYSICAL EXAMINATION SERVICE DATE: 07/28/2023 SERVICE TIME: 2:34 PM PRIMARY CARE PHYSICIAN: Frederick Cervantes DO REASON FOR VISIT: Wilda White is a 73 year old female who is scheduled for Procedure(s): TENOTOMY FOOT FLEXOR, OPEN (Left) at the request of Dr. Mercedes Gutierrez for consultation. My final recommendation will be communicated back to the requesting physician by way of shared medical record or letter. 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 CHIEF COMPLAINT: pre op HPI: Wilda White is a 73 year old female presenting for pre-anesthesia consultation. Pt has history of left foot hammer toe. Above procedure recommended to manage symptoms. Procedure scheduled on 08/11/2023 at [facility]. REVIEW OF SYSTEMS: General: No weight loss, malaise or fevers. Neurological: Positive for: peripheral neuropathy. Negative for: headaches, seizures, TIA and strokes. Respiratory: Positive for: asthma (Rescue inhaler), obstructive sleep apnea and CPAP/BiPAP compliant. Negative for: COPD, current cough, dyspnea, home oxygen, tobacco use and URI < 2 weeks. Cardiovascular: Denies dizziness or syncope. Positive for: CHF, DVT/PE, hyperlipidemia and hypertension Negative for: AICD/PPM, arrhythmia, CAD, chest pain, recent ND, murmur/valvular heart disease, open heart surgery and valve surgery. GI: Positive for: GERD Negative for: abdominal pain, GI bleed <30 days, hepatitis, liver disease, nausea and vomiting. : Denies kidney disease Negative for: dysuria, frequent urination, hematuria and urinary tract infection. Endocrine: Positive for: diabetes mellitus (Cortisone shot recently). Negative for: hyperthyroidism and hypothyroidism. Hematology: Negative for: anemia, bruises/bleeds easily, factor V Leiden, hemophilia, thrombocytopenia and von Willebrand disease. Oncology: No history of CA metastasis, chemo within 30 days, or radiotherapy within 90 days. No history of oncological symptoms or problems. Psych: Negative for: anxiety, bipolar disorder and depression. Musculoskeletal: See HPI. Skin: Negative for lesions, rash and itching. PAST MEDICAL HISTORY Diagnosis Date Diastolic dysfunction, left ventricle 07/28/2014 06/13/2014 echocardiogram. Essential hypertension, benign Hallux valgus (acquired) 12/20/2010 Menopause SHANNON (obstructive sleep apnea) 08/01/14 Severe. 08/01/14 [facility] PSG with AHI 29.4-30.5. Corrected with 16 [...] Detached Retina Sister Diabetes Sister Hypertension Brother Anesthesia Problems No Family History Social History Tobacco Use Smoking status: Former Packs/day: 0.10 Years: 8.00 Additional pack years: 0.00 Total pack years: 0.80 Types: Cigarettes Start date: 1978 Quit date: 1985 Years since quittin.3 Smokeless tobacco: Never Tobacco comments: Smoked socially, on the weekends 1-2. Parents smoked in childhood home. Ex-spouse was a smoker. Vaping Use Vaping Use: Never u (more content not included)... Normal [facility] CNCOon 06-26-2023 CNCO Letter Text Normal [facility] CNOVon 06-26-2023 CNOV Office Visit (PODIWS ) WILDA WHITE ([id number]) 1950 F Date Time Provider Department 06/26/23 1:00 PM MERCEDES GUTIERREZ PODIWS During your visit today, we recorded the following information about you: Mercedes Gutierrez 06/26/2023 10:21 PM Signed Last saw pcp: 02/24/23 Subjective: Patient presents to clinic c/o painful toenails. They state that the nails are especially painful with shoe gear and pressure. Patient admits to being diabetic. Does complain of pain to left 2nd toe where she has chronic callus. She is here to discuss options for the ongoing callus. No other pedal complaints at this time. Patient states no change in medications or medical history since last visit. Objective: Patient presents to clinic ambulating in diabetic shoes Vasc: DP and PT pulses are palpable bilateral. CFT is less than 5 seconds bilateral. Skin temperature is warm to cool proximal to distal bilateral. There is severe edema or varicosities noted. Neuro: Protective sensation is absent to the foot and toes when tested with the 5.07 SWM bilateral. Vibratory sensation is absent at the hallux IPJ bilateral. The hallux is downgoing bilateral. Derm: Nails 1-5 right and 1-3,5 left are discolored-yellow, thick, crumbly, dystrophic and with subungal debris. There is pre-ulcerative callus to left 2nd toe, distal tuft. No ulceration upon debridement. Skin is of normal turgor, texture and hair growth is present bilateral. Ortho: Muscle strength is 5/5 for all pedal groups tested. Ankle joint DF is decreased with the knee extended with no pain or crepitus noted. 1st MPJ ROM is decreased bilateral. Large bunion is noted to b/l feet. There is semi-reducible hammertoe of left 2nd toe. There is amputation of left 4th toe Assessment: (M20.42) Hammertoe of left foot (primary encounter diagnosis) (L84) Callus of foot (Z89.422) History of amputation of lesser toe of left foot (HCC (E08.42) Diabetic polyneuropathy associated with diabetes mellitus due to underlying condition ([facility]) (L60.0) Onychocryptosis (M79.675) Pain in toe of left foot (M79.674) Pain in toe of right foot Plan: Patient was seen and evaluated. Nails 1-5 right and 1-3, 5 left were debrided in length and thickness. Callus to left 2nd toe was reduced with tissue nippers and 15 blade. I discussed the callus with patient in great detail. This is a pre-ulcerative callus and if the callus continues, she could be at risk of ulceration that could lead to bone infection. She has been using hammertoe crest pad but still develops callus. I discussed with patient surgical correction. We discussed flexor tenotomy vs major reconstruction vs toe amputation. This patient is interested in trying flexor tenotomy. I informed her that flexor tenotomy will not result in complete correction but should result in enough correction to hopefully limit callus formaation. I discussed risks of the procedure not limited to infection, pain, swelling, bleeding, slow wound healing, loss of toe. I also discussed with patient the risk of skin tearing due to swelling of lower extremity. She understands these risks. She has consented to do flexor tenotomy. She prefers to be sedated for the procedure. Patient was instructed on the continued importance of diabetic foot care along with proper diet and keeping their blood sugar under control to prevent complications. Mercedes Gutierrez DPM Allergies As of Date: 06/26/2023 Noted Allergy Reaction CARLOS AIEN (ZOLPIDEM TARTRATE) 08/10/2018 14 - Other: See Comments Comments: Sleep walking CATS 07/10/2005 9 - Itching 12 - Shortness of Breath 14 - Other: See Comments Comments: Stuffy nose, itching in mouth CODEINE 08/12/2018 9 - Itching DOGS 07/10/2005 9 - Itching 12 - Shortness of Breath 14 - Other: See Comments Comments: Stuffy nose, itching in mouth LATEX 05/09/2010 2 - Rash 9 - Itching PRAVASTATIN 08/10/2018 17 - Myalgia SEASONAL ALLERGIES 09/06/2013 9 - Itching 14 - Other: See Comments Comments: Runny nose/eyes, sneezing Date Reviewed: 06/26/2023 Reviewed by: Chela Dewey RN - Fully Assessed Reason for Visit: Established Patient [175] Diabetic Foot Care [916] Established Patient [175] Diabetic Foot Care [916] Primary Visit Diagnosis:Hammertoe of left foot [M20.42] Other Visit Diagnoses:Callus of foot [L84] History of amputation of lesser toe of left foot ([facility]) [Z89.422] Diabetic polyneuropathy associated with diabetes mellitus due to underlying condition ([facility]) [E08.42] Onychocryptosis [L60.0] Pain in toe of left foot [M79.675] Pain in toe of right foot [M79.674] Prescriptions as of 06/26/2023 - meloxicam (MOBIC ORAL) Take by mouth. - nystatin-triamcinolone (MYCOLOG) ointment Apply sparingly to perineum twice daily for irritation/infection. - metoprolol succinate ER (TOPROL XL) 100 mg Take 100 mg by mouth (more content not included)... Normal [facility] Jorge 06-26-2023 NIKUNJN Telephone (PODIWS) WILDA WHITE ([id number]) 1950 F Date Time Provider Department 06/26/23 MERCEDES GUTIERREZ During your visit today, we recorded the following information about you: Cheyenne Sánchez LPN 06/26/2023 1:51 PM Signed Patient presented to office today 06/26/2023 to discuss surgery and sign consent. Patient elected to schedule surgery for Flexor tenotomy, left 2nd toe on 08/11/2023 at [facility]. Patient was provided with surgical packet including electronic and paper copy of surgical confirmation letter, hibiclens and instruction on how to use product as well as instruction on where to go at [facility]. All post op were scheduled with in office as well. Patient verbalized understanding of all instructions. Surgery needs scheduled in [facility]. EDWARDO Cuellar Amelia, LPN 07/02/2023 11:20 AM Signed Surgery scheduled in [facility] Cheyenne Sánchez LPN Allergies As of Date: 06/26/2023 Noted Allergy Reaction AMBIEN (ZOLPIDEM TARTRATE) 08/10/2018 14 - Other: See Comments Comments: Sleep walking CATS 07/10/2005 9 - Itching 12 - Shortness of Breath 14 - Other: See Comments Comments: Stuffy nose, itching in mouth CODEINE 08/12/2018 9 - Itching DOGS 07/10/2005 9 - Itching 12 - Shortness of Breath 14 - Other: See Comments Comments: Stuffy nose, itching in mouth LATEX 05/09/2010 2 - Rash 9 - Itching PRAVASTATIN 08/10/2018 17 - Myalgia SEASONAL ALLERGIES 09/06/2013 9 - Itching 14 - Other: See Comments Comments: Runny nose/eyes, sneezing Date Reviewed: 06/26/2023 Reviewed by: Chela Dewey RN - Fully Assessed Reason for Visit: schedule surgery [Other] Prescriptions as of 08/13/2023 - ciprofloxacin HCl (CIPRO) 500 mg tablet Take 1 tablet by mouth two times a day for 7 days. FOR 7 DAYS. - amoxicillin-clavulanat e potassium (AUGMENTIN) 875-125 mg per tablet Take 1 tablet by mouth two times a day for 7 days. FOR 7 DAYS. - pregabalin (LYRICA) 75 mg capsule - pioglitazone (ACTOS) 15 mg tablet - omeprazole (PRILOSEC) 40 mg capsule Take 1 capsule by mouth once daily. - isosorbide mononitrate ER (IMDUR) 30 mg 24 hr tablet - hydroCHLOROthiazide 25 mg tablet - furosemide (LASIX) 40 mg tablet Take 2 tablets by mouth every afternoon. - ezetimibe (ZETIA) 10 mg tablet Take by mouth. - amLODIPine (NORVASC) 5 mg tablet - DULoxetine (CYMBALTA) 20 mg capsule Take 1 capsule by mouth once daily. - traMADol (ULTRAM) 50 mg tablet Take 50 mg by mouth every 6 hours as needed for pain. - meloxicam (MOBIC ORAL) Take by mouth. - nystatin-triamcinolone (MYCOLOG) ointment Apply sparingly to perineum twice daily for irritation/infection. - insulin 70/30 NPH/regular units/mL (NOVOLIN 70/30) 50 units sc at breakfast, 55 units at lunch, 82 units at supper. - potassium chloride ER (K-DUR, KLOR-CON) 20 mEq tablet Take 1 tablet by mouth once daily. - losartan (COZAAR) 100 mg tablet Take 1 tablet by mouth once daily. - insulin needles, DISPOSABLE, (PEN NEEDLE) 31 X 08/06 Mis Ndle use as directed - ASPIRIN 81 MG TAB Take one (1) tablet daily . - REQUIP 4 MG TAB Take 1 tablet at bedtime as needed Meds Comments as of 07/19/2014: Problem List As Of Date 06/26/2023 Noted Resolved Type II or unspecified type diabetes mellitus w*05/08/2010 09/09/2012 Type 2 diabetes mellitus with diabetic polyneur*05/09/2000 Ulcer of other part of foot [L97.509] 05/09/2010 09/09/2012 Painful diabetic neuropathy [E11.40] 07/29/2011 Asthma [J45.909] 03/03/2013 Hypertension [I10] 03/03/2013 Restless leg syndrome [G25.81] 03/03/2013 Poor balance [R26.89] 03/03/2013 07/03/2016 Vitamin D deficiency [E55.9] 03/07/2013 Hyperlipidemia [E78.5] 03/07/2013 Morbid obesity (HCC) [E66.01] 03/14/2014 Sciatica of left side [M54.32] 03/14/2014 07/03/2016 Obstructive sleep apnea [G47.33] 03/14/2014 Diastolic dysfunction, left ventricle [I51.9] 07/28/2014 Hypokalemia [E87.6] 06/28/2015 07/03/2016 History of pulmonary embolus (PE) [Z86.711] 08/10/2018 Gastroesophageal reflux disease [K21.9] 06/12/2015 Chronic pulmonary embolism (HCC) [I27.82] 05/07/2017 Chronic back pain [M54.9, G89.29] 08/10/2018 Cervical myelopathy (HCC) [G95.9] 11/13/2022 Encounter Status:Closed by CHEYENNE SÁNCHEZ on 08/13/23 [facility] CNOVon 04-11-2023 CNOV Office Visit (PODIWS ) WILDA WHITE ([id number]) 1950 F Date Time Provider Department 04/11/23 11:30 AM MERCEDES GUTIERREZ PODIWS During your visit today, we recorded the following information about you: Cheyenne Sánchez LPN 04/14/2023 12:44 PM Signed AMB ROOMING INTAKE FLOWSHEET DATA Patient presents with: Left Foot - Established Patient, Numbness Right Foot - Established Patient, Numbness EDWARDO Cuellar Matthew 04/14/2023 12:44 PM Signed FOLLOW UP PODIATRIC OFFICE VISIT Chief Complaint: [...] SHANNON (obstructive sleep apnea) 08/01/14 Severe. 08/01/14 [facility] PSG with AHI 29.4-30.5. Corrected with 16 [...] taking differently: 70/90 units depending on sugars) oxyCODONE-acetaminophe n (PERCOCET 10) 10-325 mg tablet Take 1 tablet by mouth as needed. potassium chloride ER (K-DUR, KLOR-CON) 20 mEq tablet Take 1 tablet by mouth once daily. losartan (COZAAR) 100 mg tablet Take 1 tablet by mouth once daily. gabapentin (NEURONTIN) 800 mg tablet Take 1 tablet by mouth four times daily. insulin needles, DISPOSABLE, (PEN NEEDLE) 31 X 16 Misc Ndle use as directed ASPIRIN 81 [...] callus to tip of left 2nd toe Musculoskeletal/Orthop aedic: Patient has mild pain to palpation of [...] with diabetes mellitus due to underlying condition ([facility]) PLAN: Discussed ongoing callus vs ulceraiton of left 2nd toe. She has hammertoe and this toe does place her at risk of recurrent sores. Recurrent sores could lead to infection and/or amputation. Options for the hammertoe include continued use of padding and periodic juan manuel (more content not included)... Normal [facility] PVR ANK PRESS HEIDI VAS LABon 04-11-2023 PVR ANK PRESS HEIDI VAS LAB Non-Invasive Vascular Laboratory [facility] Lower Extremity Arterial Physiology Study Bilateral/Complete Date of service/time: 04/11/2023 11:36:01 AM Name: MRS. WILDA WHITE Date of : 1950 Age: 73 years Gender: F Clinical Indication Decreased pulses. TECHNIQUE -------- An arterial physiological examination was performed, including measurement of blood pressures using continuous wave Doppler and recording of plethysmographic with or without Doppler waveforms at the below-mentioned limb segments. FINDINGS -------- RIGHT SIDE AT REST Right Doppler Waveforms Dorsalis pedis: Multiphasic. Post tibial: Multiphasic. Right Pressures Brachial: 159 mmHg Ankle dorsalis pedis: 177 mmHg MADYSON: 1.11 Ankle posterior tibial: 173 mmHg MADYSON: 1.09 Digit: 159 mmHg Right PVR Waveforms Ankle: Normal. Digit: Normal. LEFT SIDE AT REST Left Doppler Waveforms Dorsalis pedis: Multiphasic. Post tibial: Multiphasic. Left Pressures Brachial: 158 mmHg Ankle dorsalis pedis: 184 mmHg MADYSON: 1.16 Ankle posterior tibial: 170 mmHg MADYSON: 1.07 Digit: 166 mmHg Left PVR Waveforms Ankle: Normal. Digit: Normal. IMPRESSION RIGHT SIDE Resting right ankle brachial index: 1.11 Right toe brachial index: 1.00 Normal ankle brachial index at rest in the right leg. Normal toe brachial index at rest in the right leg. Right ankle: Normal at rest. LEFT SIDE Resting left ankle brachial index: 1.16 Left toe brachial index: 1.04 Normal ankle brachial index at rest in the left leg. Normal toe brachial index at rest in the left leg. Left ankle: Normal at rest. Technologist: Bette Morales RVT [facility] Ordering physician: MERCEDES GUTIERREZ Interpreting physician: MILO Pierre DO Final CC [employer] [facility] Image : [id number] See Link below for Image Normal [facility] CNOVon 04-03-2023 CNOV Office Visit (PODIWS ) PORTIAWILDA ([id number]) 1950 F Date Time Provider Department 04/03/23 1:30 PM MERCEDES GUTIERREZ During your visit today, we recorded the following information about you: Cheyenne Sánchez LPN 04/04/2023 9:30 PM Signed AMB ROOMING INTAKE FLOWSHEET DATA Pain Pain Level: 8 Pain Location: Toe Description: Sore Duration Units: Years Frequency: Continuous Intervention/Comfort measure: Reposition, Relaxation Patient presents with: Left Foot - Established Patient, Diabetic Foot Care, Pain Right Foot - Established Patient, Diabetic Foot Care, Pain EDWARDO Cuellar Matthew 04/03/2023 1:27 PM Signed Diabetes Foot Care Instructions When you have [...] (or decreased sensation in your feet) a accountant auditor should always cut your toenails. Be Careful [...] Go to your health care provider or accountant auditor to treat these conditions. Mercedes Gutierrez 04/04/2023 9:30 PM Signed Last time saw pcp: 02/24/23 Subjective: Patient presents to clinic c/o painful toenails. They state that the nails are especially painful with shoe gear and pressure. Patient states that nails left 2nd toenail are painful. Patient admits to being diabetic. No other pedal complaints at this time. Patient states no rikki (more content not included)... Normal [facility] XR FOOT 3V AP/LAT/OBL LTon 0 04-03-2023 XR FOOT 3V AP/LAT/OBL LT * * *Final Report* * * DATE OF EXAM: Apr 03 2023 2:40PM [id number] - XR FOOT 3V AP/LAT/OBL LT / PROCEDURE REASON: Hammertoe of left foot * * * * Physician Interpretation * * * * EXAMINATION: XR FOOT 3V AP/LAT/OBL LT, XR TOE 3V AP/LAT/OBL LT CLINICAL HISTORY: Left foot neuropathy. Left second toe hammertoe deformity. 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 Left hallux valgus deformity and mild left first metatarsophalangeal degenerative disease. Unchanged flexion deformities of the left first through fifth toes. No acute fracture or dislocation. No destructive osseous lesion. Vascular calcifications are noted. Soft tissue swelling of the left foot. IMPRESSION: No acute fracture or destructive osseous lesion. Consumer Insight Analyst: ALLISON Transcribe Date/Time: Apr 07 2023 4:03P Dictated by : AME GAMBOA MD This examination was interpreted and the report reviewed and electronically signed by: AME GAMBOA MD on Apr 07 2023 4:05PM EST [id number] Normal [facility] XR TOE 3V AP/LAT/OBL LTon XR TOE 3V AP/LAT/OBL LT * * *Final Report* * * DATE OF EXAM: Apr 03 2023 2:40PM [id number] - XR TOE 3V AP/LAT/OBL LT / PROCEDURE REASON: Hammertoe of left foot * * * * Physician Interpretation * * * * EXAMINATION: XR FOOT 3V AP/LAT/OBL LT, XR TOE 3V AP/LAT/OBL LT CLINICAL HISTORY: Left foot neuropathy. Left second toe hammertoe deformity. 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 Left hallux valgus deformity and mild left first metatarsophalangeal degenerative disease. Unchanged flexion deformities of the left first through fifth toes. No acute fracture or dislocation. No destructive osseous lesion. Vascular calcifications are noted. Soft tissue swelling of the left foot. IMPRESSION: No acute fracture or destructive osseous lesion. Consumer Insight Analyst: PSCB Transcribe Date/Time: Apr 07 2023 4:03P Dictated by : AME GAMBOA MD This examination was interpreted and the report reviewed and electronically signed by: AME GAMBOA MD on Apr 07 2023 4:05PM EST [id number] Normal [facility] CNOVon 01-01-2023 CNOV Office Visit (PODIWS ) WILDA WHITE ([id number]) 1950 F Date Time Provider Department 01/01/23 1:15 PM MERCEDES GUTIERREZ During your visit today, we recorded the following information about you: Cheyenne Sánchez LPN 01/01/2023 11:07 PM Signed AMB ROOMING INTAKE FLOWSHEET DATA Patient presents with: Left Foot - Established Patient, Diabetic Foot Care Right Foot - Established Patient, Diabetic Foot Care Cheyenne SánchezEDWARDO Mercedes Gutierrez 01/01/2023 1:28 PM Signed Diabetes Foot Care Instructions When you have [...] (or decreased sensation in your feet) a accountant auditor should always cut your toenails. Be Careful [...] Go to your health care provider or accountant auditor to treat these conditions. Mercedes Gutierrez 01/01/2023 11:07 PM Signed Last seen by pcp: 11/14/22 Subjective: Patient [...] and PT pulses are palpable bilateral. CFT (more content not included)... Normal [facility] UA DIP, URINE (POC)on 2022 BILIRUBIN UA (POCT) Negative Negative [facility] CLARITY UA (POCT) Slightly Cloudy Cl [facility] COLOR UA (POCT) Yellow [facility] GLUCOSE UA (POCT) Negative Negative mg/dL [facility] HEMOGLOBIN/BLOOD UA (POCT) Negative Negative [facility] KETONE UA (POCT) Negative Negative mg/dL [facility] LEUKOCYTES UA (POCT) Negative Negative [facility] NITRITE UA (POCT) Positive Abnormal Negative [facility] PH UA (POCT) 5.0 4.5 - 8.0 [facility] Protein Ql (U) Trace Abnormal Negative mg/dL [facility] SPECIFIC GRAVITY UA (POCT) 1.025 1.005 - 1.030 [facility] UROBILINOGEN UA (POCT) 0.2 E.U./dL Cherelle l E.U./dL [facility] GLUCOSE, BLOOD (POC)on 01-18 Glucose [Mass/Vol] 182 mg/dL Abnormal 74 - 99 mg/dL [facility] UA DIP, URINE (POC)on 2021 BILIRUBIN UA (POCT) Small Abnormal Negative [facility] CLARITY UA (POCT) Clear [facility] COLOR UA (POCT) Yellow [facility] GLUCOSE UA (POCT) Negative Negative mg/dL [facility] HEMOGLOBIN/BLOOD UA (POCT) Negative Negative [facility] KETONE UA (POCT) Trace Negative mg/dL [facility] LEUKOCYTES UA (POCT) Small Abnormal Negative [facility] NITR[facility] (POCT) Positive Abnormal Negative [facility] PH UA (POCT) 5.0 4.5 - 8.0 [facility] Protein Ql (U) Negative Negative mg/dL [facility] SPECIFIC GRAVITY UA (POCT) 1.025 1.005 - 1.030 [facility] UROBILINOGEN UA (POCT) 0.2 E.U./dL Cherelle l E.U./[facility] Anion gap [Moles/Vol] 5 mmol/L Normal 5-16 [facility] Comment on above: Performed By: #### L 500.46200, L500.55954, L500.60303 #### [facility] [place] [address] Calcium [Mass/Vol] 9.9 mg/dL Normal 8.5-10.5 [facility] Comment on above: Result Comment: NOTE NEW NORMAL RANGE DUE TO REAGENT CHANGE Performed By: #### L 500.31245, L500.32416, L500.04158 #### [facility] [place] [address] Chloride [Moles/Vol] 100 mmol/L Normal 98-107 [facility] Comment on above: Performed By: #### L 500.10284, L500.15708, L500.10627 #### [facility] [address] [place] [address] CO2 [Moles/Vol] 33.0 mmol/L High 21-32 [facility] Comment on above: Performed By: #### L 500.24780, L500.41676, L500.45883 #### [facility] [address] [place] [address] Creatinine [Mass/Vol] 1.07 mg/dL High 0.510-0.950 [facility] Comment on above: Result Comment: Nava ents receiving either N-Acetylcysteine (NAC) or Metamizole prior to venipuncture, may have falsely depressed results. Performed By: #### L 500.66073, L500.19410, L500.01995 #### [facility] [address] [place] [address] Glucose [Mass/Vol] 132 mg/dL High 70-100 [facility] Comment on above: Result Comment: 70-1 00- Normal Fasting; 100-125 Impaired Fasting; greater than 126 on more than one result- Diabetes. ADA guidelines. Results may be falsely elevated after the administration of Sulfapyridine. Results may be falsely depressed after the administration of Sulfasalazine. Performed By: #### L 500.24579, L500.62580, L500.14847 #### [facility] [address] [place] [address] Potassium [Moles/Vol] 4.5 mmol/L Normal 3.5-5.1 [facility] Comment on above: Performed By: #### L 500.38898, L500.46397, L500.51522 #### [facility] [address] [place] [address] Sodium [Moles/Vol] 138 mmol/L Normal 136-145 [facility] Comment on above: Performed By: #### L 500.53179, L500.65242, L500.58376 #### [facility] [address] [place] [address] Urea nitrogen [Mass/Vol] 30 mg/dL High 7-26 [facility] Comment on above: Performed By: #### L 500.66003, L500.26911, L500.01368 #### [facility] [address] [place] [address] Urea nitrogen/Creatinine [Mass ratio] 28 mg/mg High 15-24 [facility] Comment on above: Performed By: #### L 500.27321, L500.61355, L500.94868 #### [facility] [address] [place], [place] [id number] GFR ESTon 07-11-2021 IF AMER Greater than 60 Normal [facility] Comment on above: Performed By: #### L 500.52436, L500.60264, L500.57794 #### [facility] [address] [place] [address] IF non-AFR AMER 51 Normal [facility] Comment on above: Performed By: #### L 500.73471, L500.69427, L500.36276 #### [facility] [address] [place] [address] MAGNESIUMon 07-11-2021 Magnesium [Mass/Vol] 1.7 mg/dL Normal 1.6-2.6 [facility] Comment on above: Performed By: #### L 500.83012, L500.39634, L500.66580 #### [facility] [address] [place] [address] Final Surgical Pathology Rep [facility] 08-11-2019 Final Surgical Pathology Report . Pathology Reports Accession: Collected Date/Time: Received Date/Time: Pathologist: [id number] 08/09/2019 08:12 EDT 08/10/2019 07:46 EDT ADAM CASTILLO MD Final Surgical Pathology Report DIAGNOSIS: A) TRANSVERSE COLON, POLYPECTOMY - TUBULAR ADENOMA. B) CECUM, POLYPECTOMY - TUBULAR ADENOMA. C) RIGHT AND LEFT COLON, BIOPSIES - NEGATIVE FOR COLITIS. D) PROXIMAL TRANSVERSE COLON, POLYPECTOMY - TUBULAR ADENOMA. COMMENT: [facility]# [id number] CLINICAL INFORMATION: Procedure: COLONOSCOPY WITH POLYPECTOMIES, BIOPSIES, ARGON PLASMA COAGULATION AND INJECTION OF ELEVEW Preoperative diagnosis: DIARRHEA Postoperative diagnosis: SAME SPECIMEN: A TRANSVERSE COLON POLYPS B CECAL POLYP BIOPSY C RIGHT AND LEFT COLON BIOPSIES - R/O MICROSCOPIC D PROXIMAL TRANSVERSE COLON POLYP BIOPSY GROSS DESCRIPTION: A. Received in formalin, labeled with the patients name, Case #[id number], and transverse colon polyps are 5 alvarez soft tissue fragments ranging from 0.2 to 0.4 cm. TS -1. B. Received in formalin, labeled cecal polyp BX are 4 alvarez soft tissue fragments ranging from 0.2 to 0.3 cm. TS -1. C. Received in formalin labeled right and left colon BX are multiple alvarez soft tissue fragments ranging from 0.1 to 0.3 cm. TS -1. D. Received in formalin, labeled proximal transverse colon BX is 1 alvarez soft tissue fragment measuring 0.2 cm. TS -1. Dictated by CARLOS CHAVIRA MICROSCOPIC DESCRIPTION: Slides reviewed. Electronically Signed by Pathology Report verified by [facility] Electronically signed by ADAM CASTILLO Sign out Date: 08/11/2019 16:34 Performing Lab: [facility], [address] [place] [address] ([place]) Comment on above: Performed By: #### S PFR #### [facility] [address] [place] [address] INVASIVE CARDIOLOGY CATH PRO DEANDRE 11-17-2017 Protein mass conc Wilda White is a 67 y.o. female with history of bilateral PEs, obstructive lung disease, and recently noted ASD on MARIELLA with normal right heart dimensions who has been experiencing worsening shortness of breath and lower extremity swelling. She presents for RHC/LHC to evaluate for etiology of her shortness of breath.Access: right femoral vein, right femoral arteryProcedure: RHC/LHC accessing left atrium and left ventricle via trans-septal crossing through ASDRHC:RA 15mmHgRV 51/18 mmHgPA 44/25 - 27mmHgPCWP 20mmHgLA 18mmHgLVEDP 28 mmHgFick CO/CI 7.4/3.5PVR 1.0 WUSVR 8.9 WUQp:Qs = 1Sats: SVC 72%, IVC 78%, PA 72%, LA 97%, Ao 96% (on room air)Coronary Angiogram:Right dominant circulationHeavily calcified vesselsMild to moderate diffuse calcific CAD as follows:- 30% distal left main- 20% proximal RCA- 40% prox and mid LAD- 20% proximal LCxImpression:Biventri cular diastolic dysfunctionMild pulmonary hypertension (WHO Group 2) - secondary to left heart diastolic dysfunctionNon-obstruc tive calcific CADPlan:Would not recommend closure of ASD given lack of significant shunt and high diastolic filling pressuresNo PH medications indicatedStart Imdur 30mg dailyStop chlorthalidone; start lasix 40mg dailyAggressive risk factor management for CAD with statin, ASA, lifestyle modificationFollow-up with primary soybean grower Wilda White Invasive Cardiology Cath Procedure Ordering Physician: Maria Lizarraga Order #: [id number] Study Date: 11/13/2017 Patient Information Name MRN Description Wilda White [id number] 67 y.o. Female Location Name Address [facility] [address] [facility] [address] Physicians Panel Physicians Referring Physician Case Authorizing Physician Maria Lizarraga MD (Primary) MD Maria Burns MD Lauren T Lastinger, MD (Fellow) CC Referring Recipient Method Contact Information Mohan Sepulveda MD Fax Frederick Cervantes, DO Mail Procedures Left Heart Catheterization Coronary Angiogram Right Heart Catheterization Indications Congenital heart disease [Q24.9 (ICD-10-CM)] Secundum ASD [Q21.1 (ICD-10-CM)] Conclusion Wilda White is a 67 y.o. female with history of bilateral PEs, obstructive lung disease, and recently noted ASD on MARIELLA with normal right heart dimensions who has been experiencing worsening shortness of breath and lower extremity swelling. She presents for RHC/LHC to evaluate for etiology of her shortness of breath.Access: right femoral vein, right femoral arteryProcedure: RHC/LHC accessing left atrium and left ventricle via trans-septal crossing through ASDRHC:RA 15mmHgRV 51/18 mmHgPA 44/25 - 27mmHgPCWP 20mmHgLA 18mmHgLVEDP 28 mmHgFick CO/CI 7.4/3.5PVR 1.0 WUSVR 8.9 WUQp:Qs = 1Sats: SVC 72%, IVC 78%, PA 72%, LA 97%, Ao 96% (on room air)Coronary Angiogram:Right dominant circulationHeavily calcified vesselsMild to moderate diffuse calcific CAD as follows:- 30% distal left main- 20% proximal RCA- 40% prox and mid LAD- 20% proximal LCxImpression:Biventri cular diastolic dysfunctionMild pulmonary hypertension (WHO Group 2) - secondary to left heart diastolic dysfunctionNon-obstruc tive calcific CADPlan:Would not recommend closure of ASD given lack of significant shunt and high diastolic filling pressuresNo PH medications indicatedStart Imdur 30mg dailyStop chlorthalidone; start lasix 40mg dailyAggressive risk factor management for CAD with statin, ASA, lifestyle modificationFollow-up with primary soybean grower Medical History Diagnosis Date Comment Source Asthma Provider GERD (gastroesophageal reflux disease) Provider Hypertension Provider Obstructive sleep apnea Provider Pulmonary embolism Provider Type 2 diabetes mellitus Provider Procedure The risks and alternatives of the procedure and conscious sedation were explained. Informed consent was obtained. The patient was brought to the skilled labor and placed on the table. The planned puncture sites were prepped and draped in the usual sterile fashion Coronary Findings Dominance: Right Left Main LM lesion, 30% stenosed. The lesion is calcified. Left Anterior Descending Prox LAD lesion, 40% stenosed. Mid LAD lesion, 40% stenosed. The lesion is calcified. Left Circumflex Prox Cx lesion, 20% stenosed. The lesion is calcified. Right Coronary Artery There is mild diffuse disease throughout the vessel. Prox RCA-1 lesion, 20% stenosed. The lesion is calcified. Prox RCA-2 lesion, 20% stenosed. The lesion is calcified. Implants Type Name Action Serial No. VASC CLOSURE ANGIOSEAL VIP 6FR - [id number] Implanted Fluoro Dose Fluoro Dose: 168.33 Gy-cm^2 Complications Complications documented before study signed (11/17/2017 10:26 AM EDT) No complications were associated with this study. Documented by Maria Lizarraga MD - 11/13/2017 2:57 PM EDT Cardiac Trial Consultant Attending Physician Statement and Signature I have personally performed and/or personally supervised and was present for this entire procedure, including the review and interpretation of all images and physiologic tracings acquired during the course of this study. Signed at 1456 EDT at 1457 EDT Phase: Baseline Data Systolic Diastolic Mean dP/dt A Wave V Wave AO Pressures 155 mmHg 74 mmHg 103 mmHg LV Pressures 150 mmHg 28 mmHg RA Pressures 15 mmHg 20 mmHg 19 mmHg RV Pressures 46 mmHg 18 mmHg PA Pressures 44 mmHg 25 mmHg 27 mmHg PCW Pressures 20 mmHg 20 mmHg 23 mmHg Phase: Baseline Data HR TDCO TDCI Dani CO Dani CI PVR/SVR TPR/TVR Hemo Outputs 8.02 L/min 3.76 L/min/m2 Blood Oximetry 11/13/17 1308--11/13/17 1450 Date/Time AO O2 Sat SVC O2 Sat IVC O2 Sat LA O2 Sat 11/13/17 13:46:26 97 % -- -- -- 11/13/17 13:48:43 -- -- 78 % -- 11/13/17 13:49:59 -- 72 % -- -- 11/13/17 14:03:21 -- -- -- 97 % Coronary Diagrams Diagnostic Diagram Result Report Result Report Normal [facility] *POC GLUCOSE BATTERYon 11-14 *POC SAMPLE TYPE Capillary Blood Normal [facility] Glucose mass conc 84 mg/dL Normal 70-99 [facility] Comment on above: Result Comment: No B JAYCE per RN: PATIENT TYPE *POC GLUCOSE BATTERYon 11-13 *POC SAMPLE TYPE Capillary Blood Normal [facility] Glucose mass conc 86 mg/dL Normal 70-99 [facility] Comment on above: Result Comment: Noti fied RNread backNo BRAVE per RN: PATIENT TYPE CHEM 11-13-2017 Anion gap 3 molar conc 11 mmol/L Normal 7-17 [facility] Comment on above: Performed By: #### H ZUHAIR PTI, CHM6 ####[facility] [place], [place] [id number] [address] [place] [address] Chloride molar conc 102 mmol/L Normal 98-108 [facility] Comment on above: Performed By: #### David MOFFETT PTI, CHM6 ####[facility] [place], [place] [id number] [address] [place] [address] CO2 molar conc 30 mmol/L Normal 22-30 [facility] Comment on above: Performed By: #### David MOFFETT, PTI, CHM6 ####[facility] [place], [place] [id number] [address] [place] [address] Creatinine mass conc 0.80 mg/dL Normal 0.50-1.20 [facility] Comment on above: Performed By: #### H ZUHAIR PTI, CHM6 ####[facility] [place], [place] [id number] [address] [place] [address] Est GFR, >60 Normal >60 [facility] Comment on above: Performed By: #### H ZUHAIR, PTI, CHM6 ####[facility] [place] [id number] [place], [place] [id number] [address] [place] [address] Est GFR,non >60 Normal >60 [facility] Comment on above: Performed By: #### H ZUHAIR, PTI, CHM6 ####[facility] [place] [id number] [place], [place] [id number] [address] [place] [address] Potassium molar conc 3.9 mmol/L Normal 3.5-5.0 [facility] Comment on above: Performed By: #### H ZUHAIR, PTI, CHM6 ####[facility] [place], [place] [id number] [address] [place] [address] Sodium molar conc 139 mmol/L Normal 133-143 [facility] Comment on above: Performed By: #### H ZUHAIR, PTI, CHM6 ####[facility] [place] [id number] [place], [place] [id number] [address] [place] [address] Urea nitrogen mass conc 19 mg/dL Normal 7-22 [facility] Comment on above: Performed By: #### H ZUHAIR, PTI, CHM6 ####[facility] [place], [place] [id number] [address] [place] [address] Urea nitrogen/Creatinine mass ratio 24 mg/mg Normal [facility] Comment on above: Performed By: #### H ZUHAIR, PTI, CHM6 ####[facility] [place], [place] [id number] [address] [place] [address] HEMOGRAM (CBC and Platelet)o n 11-13-2017 Hematocrit Auto Volume Fraction (Bld) 34.3 % Normal 34.1-44.9 [facility] Comment on above: Performed By: #### VARINDER DOAN, RUBIM6 ####[facility] [place], [place] [id number] [address] [place] [address] Hemoglobin mass conc (Bld) 11.1 g/dL Low 11.2-15.7 [facility] Comment on above: Performed By: #### VARINDER DOAN, DIDI6 ####[facility] [place], [place] [id number] [address] [place] [address] MCV Auto Entitic volume (RBC) 87.1 fL Normal 79.4-94.8 [facility] Comment on above: Performed By: #### VARINDER DOAN, RUBIM6 ####[facility] [place], [place] [id number] [address] [place] [address] Mean Cell Hgb 28.2 pg Normal 25.6-32.2 [facility] Comment on above: Performed By: #### VARINDER DOAN, CHM6 ####[facility] [place], [place] [id number] [address] [place] [address] Mean Cell Hgb Conc 32.4 g/dL Normal 32.2-35.5 [facility] Comment on above: Performed By: #### David MOFFETT PTI, CHM6 ####[facility] [place], [place] [id number] [address] [place] [address] Nucleated RBC #/vol (Bld) 0.0 /100 WBC Normal 0.0-0.2 [facility] Comment on above: Performed By: #### H ZUHAIR, PTI, CHM6 ####[facility] [place] [address], [place] [address] [place], [place] [id number] [address] [place] [id number] Platelet mean volume Auto Entitic volume (Bld) 9.3 fL Low 9.4-12.3 [facility] Comment on above: Performed By: #### H ZUHAIR, PTI, CHM6 ####[facility] [place] [address], [address] [place] [address] 30687 Platelets Auto #/vol (Bld) 305 10*3/uL Normal 182-369 [facility] Comment on above: Performed By: #### David MOFFETT, PTI, CHM6 ####[facility] [place] [address], [place] [address] [place], [place] [phone] [address] [place] [address] 94116 RBC Auto #/vol (Bld) 3.94 10*6/uL Normal 3.93-5.22 [facility] Comment on above: Performed By: #### H ZUHAIR, PTI, CHM6 ####[facility] [place] [address], [address] [place] [address] 08185 RBC Auto #/vol (Bld) 13.8 % Normal 11.7-14.4 [facility] Comment on above: Performed By: #### H ZUHAIR, PTI, CHM6 ####[facility] [place] [address], [place] [address] [place], [place] [phone] [address] [place] [address] [phone] WBC Auto #/vol (Bld) 11.07 10*3/uL High 3.98-10.04 [facility] Comment on above: Performed By: #### [facility], PTI, CHM6 ####[facility] [place], [place] [address]Gx[facility]ypn[facility] [place], [place] [address] MRI CARDIAC WITH CONTRAST W/ VELOCITY FLOW MAP AND MRA CHEST WITH CONTRon 11-13-2017 MRI CARDIAC WITH CONTRAST W/VELOCITY FLOW MAP AND MRA CHEST WITH CONTR [facility] CMR Report Name: WILDA WHITE : 1950 Scan Date: 2017-11-13 08:27:07 Signed by Myriam Horn ([id number]) 10:44:28.SUMMARY 67 year-old female with dyspnea found to have small secundum ASD by TTE. CMR to evaluate RV, shunt fractionand pulmonary veins. CARDIAC MRI1. ASD jet is visualized; flow quantification suggests absence of significant shunt volume with Qp:Qs =1:1. 2. Normal RV size and systolic function; RVEF = 52%.3. Midwall fibrosis is seen on late gadolinium imaging c/w nonischemic myocardial disease.4. Prominent intramyocardial fat is noted in the lateral LV wall of uncertain significance. There isconcentric remodeling of the left ventricle (relative wall thickness ~0.47) with preserved systolicfunction; LVEF = 65%.5. Mild left atrial enlargement.6. Trace MR by phase contrast imaging. Peak trans aortic velocity is 1.3 m/sec.THORACIC MRA1. No anomalous pulmonary venous drainage noted. Four pulmonary veins drain into the left atrium. 2. Normal appearance of the visualized thoracic aorta; at the PA bifurcation level, AAo and Megan measure 3.6and 2.5 cm, respectively.CRITICAL RESULT: No STUDY QUALITY: Excellent No sizeable intracardiac shunt volume or signs of RV overload. Normal pulmonary venous drainage.LV concentric remodeling with midwall fibrosis and intramyocardial fat; preserved LVEF.SCAN INFO GENE RAL SETUP -- DATE OF EVENT: 2017-11-13 00:00:00 TYPE: Clinical INPATIENT: No REFERRING PHYSICIAN: 1) Maria Lizarraga MD ATTENDING PHYSICIAN: Myriam Horn MD FELLOW: Peggy Cadena TECHNOLOGIST: Viviana ALFONSO (R) (CT) NURSE: Viviana Handley RN CONTRAST AGENT -- TYPE: Gadavist VOLUME ADMINISTERED: 17 ml DOSAGE FOR 0.5M: 0.08 mmol/kg CREATININE DATE: 2017-10-13 00:00:00 SERUM CREATININE: 1.03 sCr GFR: 56.98 ml/min/1.73m^2 VITALS -- HEIGHT: 64 in HEIGHT: 162.56 cm WEIGHT: 245 lbs WEIGHT: 111.13 kgs BSA: 2.13 m^2 VITALS -- SYSTOLIC BP: 201 mmHg DIASTOLIC BP: 88 mmHg BASELINE HR: 70 BPM INDICATION(S) FOR SCAN --REASON(S) FOR SCAN: ASD (evaluate for), Congenital Heart Disease BILLING APPR OPRIATENESS OF ORDER: Appropriate BILLING Patient Account [id number] CPT Codes 27462, [ , ]72206, [ , ]96936 ICD10 Codes Q24.9, [ , ]Q21.1CORE EXAM CHARLEE UREMENTS VOLUMETRIC ANALYSIS --. . LV Reference RV Reference +------+ +- -------+ +-- -----+ + EDV ml 139.33 (82-162) 122 (75-160) ml/m^2 65.4 (53-87) 57.3 (49-86) ESV ml 48.72 (20-57) 59 (11-63) ml/m^2 22.9 (13-31) 27.7 (8-34) CO L/min 5.62 3.91 L/min/m^2 2.6 1.8 MASS g 135.77 (73-145) g/m^2 63.7 (48-78) SV ml 90.61 (56-111) 63 (55-106) ml/m^2 42.5 (36-60) 29.6 (34-58) EF % 65.03 (60-78) 51.64 (57-81) '------+ +- -------+ +-- -----+ ' CARDIAC OUTPUT HR: 62 BPM LV/RV DIMENSIONS -- LV GINI: 4.4 cm LV ESD: 3.1 cm RV GINI: 4.6 cm RV ESD: 3.6 cm LA (SYSTOLE) / RA DIMENSIONS -- LA AREA - 2 CHAMBER: 28 cm^2 LA LENGTH - 2 CHAMBER: 6.3 cm LA AREA - 4 CHAMBER: 27 cm^2 LA LENGTH - 4 CHAMBER: 6.2 cm LA VOLUME: 103.65 ml RA AREA - 4 CHAMBER: 21 cm^2 WALL THICKNESS -- WALL THICKNESS - ANTEROSEPTAL: 1.3 cm WALL THICKNESS - INFEROLATERAL: 0.9 cm EXTRACELLULAR VOLUME MEASUREMENT -- PRE-CONTRAST T1 MYOCARDIUM: 1103 msec PRE-CONTRAST T1 LV CAVITY: 1741 msecVASCULAR Normal [facility] PT/INR BATTERYon 11-13-2017 INR Coag RelTime (PPP) 1.1 {INR} Normal 0.9-1.1 [facility] Comment on above: Performed By: #### H EMOGC, PTI, CHM6 ####[facility] [facility] [address] [place], [place] [phone] [address] [place] [id number] Prothrombin time (PT) Coag time (PPP) 14.2 s Normal 11.9-14.2 [facility] Comment on above: Performed By: #### H EMOGC, PTI, CHM6 ####[facility] [facility] [address] [place], [place] [phone] [address] [place] [address] Office Visit: Diabetes Follo w Upon 01-14-2017 Documentation of current medications (procedure) Done Invalid Interpretation Code [facility] Work Phone: Office Visiton 10-16-2016 Adult depression screening assessment Adult depression screening assessment Invalid Interpretation Code [facility] Work Phone: Tobacco use [facility] Former smoker Invalid Interpretation Code [facility] Work Phone: Office Visit: 2 Month follow upon 11-07-2015 Tobacco smoking status NHIS Never Invalid Interpretation Code [facility] Work Phone: Lab Report: Comprehensive Mi tabolic Profilon 06-29-2015 Alanine aminotransferase (ALT) 34 U/L Invalid Interpretation Code [facility] Work Phone: Albumin 3.6 g/dL Invalid Interpretation Code 3.4-5.0 [facility] Work Phone: Albumin/Globulin Ratio 1 {ratio} Invalid Interpretation Code 0.9-2.4 [facility] Work Phone: Alkaline phosphatase (ALP) 54 U/L Invalid Interpretation Code 50-136 [facility] Work Phone: Anion gap 9 mmol/L Invalid Interpretation Code 5-15 [facility] Work Phone: Aspartate aminotransferase (AST) 24 U/L Invalid Interpretation Code 15-37 [facility] Work Phone: Bilirubin (total) 0.40 mg/dL Invalid Interpretation Code 0.20-1.00 [facility] Work Phone: BUN/Creatinine Ratio 19.1 RATIO Invalid Interpretation Code 10-20 [facility] Work Phone: Calcium 9.3 mg/dL Invalid Interpretation Code 8.5-10.1 [facility] Work Phone: Chloride 102 mmol/L Invalid Interpretation Code 98-107 [facility] Work Phone: CO2 28.0 mmol/L Invalid Interpretation Code 21.0-32.0 [facility] Work Phone: Creatinine 0.89 mg/dL Invalid Interpretation Code 0.55-1.20 [facility] Work Phone: eGFR (non-black) 82 mL/min/{1.73_m2} Invalid Interpretation Code >60 [facility] Work Phone: eGFR (non-black) 68 mL/min/{1.73_m2} Invalid Interpretation Code >60 [facility] Work Phone: Globulin 3.5 g/dL Invalid Interpretation Code 2.3-3.5 [facility] Work Phone: Glucose mass conc 90 mg/dL Invalid Interpretation Code 70-110 [facility] Work Phone: Potassium molar conc 3.8 mmol/L Invalid Interpretation Code 3.5-5.1 [facility] Work Phone: Protein 7.1 g/dL Invalid Interpretation Code 6.4-8.2 [facility] Work Phone: Sodium 139 mmol/L Invalid Interpretation Code 136-145 [facility] Work Phone: Urea nitrogen 17 mg/dL Invalid Interpretation Code 7-18 [facility] Work Phone: Lab Report: Lipid Profileon 06-29-2015 Cholesterol 164 mg/dL Invalid Interpretation Code 200 [facility] Work Phone: HDL Cholesterol 40 mg/dL Invalid Interpretation Code [facility] Work Phone: LDL Cholesterol 96 mg/dL Invalid Interpretation Code 0-130 [facility] Work Phone: Triglyceride 140 mg/dL Invalid Interpretation Code [facility] Work Phone: very low density lipoproteins 28 mg/dL Invalid Interpretation Code 5-40 [facility] Work Phone: Lab Report: Microalb:Creat R atio,[place] URon 06-29-2015 ACR (microalbumin/creatini ne) ratio 52.4 MG/G CRE High <30 mg/g CRE [facility] Work Phone: Urine, creatinine 95.00 mg/dL Invalid Interpretation Code NO RANGE EST. [facility] Work Phone: Urine, microalbumin 4.98 mg/dL Invalid Interpretation Code Units converted. See lab report for original value. [facility] Work Phone: Office Visit: 1 month F/Uon 02-01-2015 Smoking cessation education (procedure) yes Invalid Interpretation Code [facility] Work Phone: Lab Report: CBC-Complete Blo od Cnt No Diffon 01-07-2015 Erythrocyte distribution width Auto Ratio (RBC) 13.5 % Invalid Interpretation Code 11.6-14.6 [facility] Work Phone: Erythrocytes (RBC) 4.48 10*6/uL Invalid Interpretation Code 4.2-5.4 [facility] Work Phone: Hematocrit (HCT) 38.4 % Invalid Interpretation Code 37-47 [facility] Work Phone: Hemoglobin mass conc (Bld) 13.1 g/dL Invalid Interpretation Code 12.0-15.0 [facility] Work Phone: MCH 29.2 pg Invalid Interpretation Code 27.0-32.0 [facility] Work Phone: MCHC mass conc (RBC) 34.1 G/GL Invalid Interpretation Code 32-36 [facility] Work Phone: MCV 85.7 fL Invalid Interpretation Code 81-99 [facility] Work Phone: Platelets 296 10*3/mm3 Invalid Interpretation Code 150-450 [facility] Work Phone: PMV by Beto 9.5 fL Invalid Interpretation Code 6.2-12.0 [facility] Work Phone: RDW SD 42.1 fL Invalid Interpretation Code 35.1-43.9 [facility] Work Phone: WBC (Leukocytes) 13.2 10*3/uL High 4.4-11.0 [facility] Work Phone: Rx Refill: eRx Request for H YDROCHLOROTHIAZIDE 25MG TABon 12-05-2014 [id number]_[id number]`HYDROCHL OR OTHIAZIDE 25MG TAB`25MG``30 Tablet`30`TAKE ONE TABLET BY MOUTH ONCE DAILY FOR BLOOD PRESSURE``1`0`06/09/19 15`11/09/2014`Flaca Sanchez [facility]*`[id number]`23 [id number]``HYDROCHLORO THIAZIDE 25MG TAB Quantity: 30 Tablet Instructions: TAKE ONE TABLET BY MOUTH ONCE DAILY FOR BLOOD PRESSURE Better [facility] Work Phone: Lab Report: CBC W/Diff, Auto matedon 12-01-2014 Absolute Neut 9.7 X10 3/UL High 2.0-7.7 [facility] Work Phone: Basophils/100 WBC Auto (Bld) 0.3 % Invalid Interpretation Code 0-1 [facility] Work Phone: Eosinophils/100 leukocytes 0.9 % Invalid Interpretation Code 0-5 [facility] Work Phone: Immature granulocytes/100 WBC (Bld) 0.300 % Invalid Interpretation Code 0.0-0.9 [facility] Work Phone: Lymphocytes 1.19 X10 3/UL Invalid Interpretation Code 0.83-4.51 [facility] Work Phone: Lymphocytes/100 leukocytes 10.3 % Low 19-41 [facility] Work Phone: Monocytes/100 leukocytes 4.2 % Invalid Interpretation Code 0-10 [facility] Work Phone: Neutrophils/100 WBC Auto (Bld) 84.0 % High 47-70 [facility] Work Phone: Lab Report: Lipaseon 015 LIPASE 115 U/L Invalid Interpretation Code 73-393 [facility] Work Phone: Lab Report: Liver Profileon 12-01-2014 Bilirubin (direct) 0.14 mg/dL Invalid Interpretation Code 0.00-0.30 [facility] Work Phone: Lab Report: Basic Metabolic Profile (BMP)on 11-15-2014 Creatinine 42.50 mL/min Invalid Interpretation Code [facility] Work Phone: Lab Report: Vitamin D,25 Hyd roxyon 11-09-2014 Vitamin D 25-OH 48.6 ng/mL Invalid Interpretation Code [facility] Work Phone: Office Visit: Back painon Bilirubin Ql (U) Negative Invalid Interpretation Code [facility] Work Phone: blood in urine (hemoglobin) by dipstick Negative Invalid Interpretation Code [facility] Work Phone: specific gravity, urine 1.015 Invalid Interpretation Code [facility] Work Phone: Urine, appearance clear Invalid Interpretation Code [facility] Work Phone: Urine, color yellow Invalid Interpretation Code [facility] Work Phone: Urine, glucose presence Negative Invalid Interpretation Code [facility] Work Phone: Urine, ketones presence trace (5) Invalid Interpretation Code [facility] Work Phone: Urine, leukocyte esterase presence Negative Invalid Interpretation Code [facility] Work Phone: Urine, nitrite presence Negative Invalid Interpretation Code [facility] Work Phone: Urine, pH 6.0 [pH] Invalid Interpretation Code [facility] Work Phone: Urine, protein Negative Invalid Interpretation Code [facility] Work Phone: Urine, urobilinogen presence Negative Invalid Interpretation Code [facility] Work Phone: Lab Report: CRPon 04-13-2014 C-REACTIVE PROT 7.24 Critically high 0.0-3.0 [facility] Work Phone: Lab Report: T4 Free Directon 04-13-2014 T4 FREE DIRECT 1.21 ng/dL Invalid Interpretation Code 0.76-1.46 [facility] Work Phone: Lab Report: Thyroid Stim Hor rocky (TSH)on 04-13-2014 Thyroid stimulating hormone (TSH) 3.31 u[iU]/mL Invalid Interpretation Code 0.358-3.74 [facility] Work Phone: Lab Report: BNP,B-Type NATRI URETIC PEPTIDEon 04-05-2014 BNP 94.5 pg/mL Invalid Interpretation Code 0-100 [facility] Work Phone: Lab Report: D-Dimer Quantita tive (DVT/PE)on 04-05-2014 D-DIMER QUANT 0.38 FEU/UG/M Invalid Interpretation Code 0.27-0.49 [facility] Work Phone: Lab Report: Troponin-Ion Troponin I.cardiac mass conc ng/mL Invalid Interpretation Code <0.06 [facility] Work Phone: Vital Signs Date Time Vital Sign Value Performing Clinician Facility 07-28-2023 13:30-0400 Body height 162.6 cm Pacc 1 Work Phone: [facility] 07-28-2023 13:30-0400 Body mass index (BMI) [Ratio] 44.46 kg/m2 Pacc 1 Work Phone: [facility] 07-28-2023 13:30-0400 Body temperature 97.11 [degF] Pacc 1 Work Phone: [facility] 07-28-2023 13:30-0400 Body weight 117.48 kg Pacc 1 Work Phone: [facility] 07-28-2023 13:30-0400 Diastolic blood pressure 60 mm[Hg] Pacc 1 Work Phone: [facility] 07-28-2023 13:30-0400 Heart rate 86 /min Pacc 1 Work Phone: [facility] 07-28-2023 13:30-0400 Respiratory rate 14 /min Pacc 1 Work Phone: [facility] 07-28-2023 13:30-0400 SaO2% (BldA) [Mass fraction] 95 % Pacc 1 Work Phone: [facility] 07-28-2023 13:30-0400 Systolic blood pressure 102 mm[Hg] Pacc 1 Work Phone: [facility] 07-22-2022 15:03-0400 Body temperature 98.29 [degF] Krislyn Aberegg PA Work Phone: [facility] 07-22-2022 15:03-0400 Body weight 124.1 kg Krislyn Aberegg PA Work Phone: [facility] 07-22-2022 15:03-0400 Diastolic blood pressure 82 mm[Hg] Krislyn Aberegg PA Work Phone: [facility] 07-22-2022 15:03-0400 Heart rate 69 /min Krislyn Aberegg PA Work Phone: [facility] 07-22-2022 15:03-0400 Respiratory rate 26 /min Krislyn Aberegg PA Work Phone: [facility] 07-22-2022 15:03-0400 SaO2% (BldA) [Mass fraction] 94 % Krislyn Aberegg PA Work Phone: [facility] 07-22-2022 15:03-0400 Systolic blood pressure 140 mm[Hg] Krislyn Aberegg PA Work Phone: [facility] 01-18-2022 14:47-0400 Body temperature 98.4 [degF] Heather Owens [employer]COMPUTER INSTALLER Work Phone: [facility] 01-18-2022 14:47-0400 Body weight 115.67 kg Heather Owens [employer]COMPUTER INSTALLER Work Phone: [facility] 01-18-2022 14:47-0400 Diastolic blood pressure 72 mm[Hg] Heather Owens [employer]COMPUTER INSTALLER Work Phone: [facility] 01-18-2022 14:47-0400 Heart rate 68 /min Heather Owens [employer]COMPUTER INSTALLER Work Phone: [facility] 01-18-2022 14:47-0400 Respiratory rate 18 /min Heather Owens [employer]COMPUTER INSTALLER Work Phone: [facility] 01-18-2022 14:47-0400 SaO2% (BldA) [Mass fraction] 97 % Heather Owens [employer]COMPUTER INSTALLER Work Phone: [facility] 01-18-2022 14:47-0400 Systolic blood pressure 136 mm[Hg] Heather Woens [employer]COMPUTER INSTALLER Work Phone: [facility] 01-14-2017 09:10-0400 BMI (Body Mass Index) 41.32 kg/m2 [facility] Work Phone: 01-14-2017 09:10-0400 BP Diastolic 68 mm[Hg] Eden Boris TAP OUT OPERATOR [facility] Work Phone: 01-14-2017 09:10-0400 BP Systolic 138 mm[Hg] Eden Boris EDWARDO [facility] Work Phone: 01-14-2017 09:10-0400 Height 161.29 cm Eden Escalante LPN [facility] Work Phone: 01-14-2017 09:10-0400 Pulse (Heart Rate) 68 /min Eden Escalante LPN [facility] Work Phone: 01-14-2017 09:10-0400 Respiratory Rate 20 /min Eden Escalante LPN [facility] Work Phone: 01-14-2017 09:10-0400 Weight 107.5 kg Eden Escalante LPN [facility] Work Phone: 10-16-2016 09:26-0400 Body Temperature 98.7 [degF] Eden Boris WALTERSMike [facility] Work Phone: 10-16-2016 09:26-0400 BP Diastolic 80 mm[Hg] Eden Escalante EDWARDO [facility] Work Phone: 10-16-2016 09:26-0400 BP Systolic 140 mm[Hg] Eden Escalante LPN [facility] Work Phone: 11-07-2015 09:33-0400 BSA (Body Surface Area) 2.05 m2 Eden Escalante EDWARDO [facility] Work Phone: Encounters Encounter Date Encounter Type Care Provider Facility Start: 12-23-2023 End: 12-23-2023 ambulatory MERCEDES GUTIERREZ Facility:[facility] Start: 12-23-2023 End: 12-23-2023 Patient encounter procedure Mercedes Lemusoma Work Phone: Podiatry Comment on above: Onychocryptosis (Dia fernandez Dx); Pain in toe of right foot; Pain in toe of left foot; History of amputation of lesser toe of left foot (HCC); Diabetic polyneuropathy associated with diabetes mellitus due to underlying condition (HCC); Hammertoe of left foot Start: 09-22-2023 End: 09-22-2023 [facility] Facility:[facility] Start: 09-22-2023 End: 09-22-2023 Patient encounter procedure Mercedes Gutierrez Work Phone: Podiatry Comment on above: Onychocryptosis (Dia fernandez Dx); Diabetic polyneuropathy associated with diabetes mellitus due to underlying condition (HCC); Pain in toe of right foot; Pain in toe of left foot; Hammertoe of left foot; Callus of foot Start: 09-01-2023 End: 09-01-2023 [facility] Facility:[facility] Start: 09-01-2023 End: 09-01-2023 Patient encounter procedure Mercedes Gutierrez Work Phone: Podiatry Comment on above: Hammertoe of left fo ot (Primary Dx); Ulcer of toe of left foot, limited to breakdown of skin (HCC); Wound dehiscence Start: 08-29-2023 Telephone encounter Mercedes Haque Work Phone: Podiatry Comment on above: Patient Update Start: 08-21-2023 End: 08-21-2023 [facility] Facility:[facility] Start: 08-21-2023 End: 08-21-2023 Patient encounter procedure Mercedes Gutierrez Work Phone: Podiatry Comment on above: Hammertoe of left fo ot (Primary Dx); Ulcer of toe of left foot, limited to breakdown of skin (HCC); Postoperative wound dehiscence, initial encounter Start: 08-14-2023 End: 08-14-2023 Orders Only Mercedes Gutierrez Work Phone: Podiatry Comment on above: Hammertoe of left fo ot (Primary Dx); Ulcer of toe of left foot, limited to breakdown of skin (HCC) Start: 08-11-2023 Telephone encounter Mercedes Haque Work Phone: Podiatry Start: 08-11-2023 End: 08-11-2023 [facility] Start: 07-28-2023 End: 07-28-2023 Admission to establishment Pac [facility] 1 Work Phone: Pre Anesthesia Start: 07-28-2023 End: 07-28-2023 [facility] Facility:[facility] Start: 07-28-2023 End: 07-28-2023 Anesthesia consultation [facility] 1 Work Phone: Pre Anesthesia Comment on above: Pre-op evaluation (P rimary Dx); Type 2 diabetes mellitus with diabetic polyneuropathy, with long-term current use of insulin ([facility]); Diastolic dysfunction, left ventricle; Pure hypercholesterolemia; Primary hypertension; Mild intermittent asthma without complication; Obstructive sleep apnea; Gastroesophageal reflux disease, unspecified whether esophagitis present; Stage 3b chronic kidney disease ([facility]); History of pulmonary embolus (PE); Coronary artery disease of [place] artery of [place] heart with stable angina pectoris ([facility]); Morbid obesity ([facility]) Start: 07-28-2023 End: 07-28-2023 Preprocedural examination done [facility] 1 Work Phone: [facility] Work Phone: Start: 06-26-2023 Telephone encounter Mercedes Haque Work Phone: Podiatry Comment on above: schedule surgery Start: 06-26-2023 End: 06-26-2023 ambulatory MERCEDES GUTIERREZ Facility:[facility] Start: 06-26-2023 End: 06-26-2023 Patient encounter procedure Mercedes Gutierrez Work Phone: Podiatry Comment on above: Hammertoe of left fo ot (Primary Dx); Callus of foot; History of amputation of lesser toe of left foot (HCC); Diabetic polyneuropathy associated with diabetes mellitus due to underlying condition ([facility]); Onychocryptosis; Pain in toe of left foot; Pain in toe of right foot Start: 04-11-2023 End: 04-11-2023 ambulatory MERCEDES GUTIERREZ Facility:[facility] Start: 04-11-2023 End: 04-11-2023 ambulatory MERCEDES GUTIERREZ Facility:[facility] Start: 04-03-2023 End: 04-03-2023 ambulatory MERCEDES GUTIERREZ Facility:[facility] Start: 01-01-2023 End: 01-01-2023 ambulatory MERCEDES GUTIERREZ Facility:[facility] Start: 01-01-2023 End: 01-01-2023 Patient encounter procedure Mercedes Gutierrez Work Phone: Podiatry Comment on above: Onychocryptosis (Dia fernandez Dx); Pain in toe of left foot; Pain in toe of right foot; History of amputation of lesser toe of left foot (HCC); Diabetic mononeuropathy associated with diabetes mellitus due to underlying condition (HCC); Cervical myelopathy (HCC) Start: 11-13-2022 End: 11-13-2022 Patient encounter procedure Mercedes Gutierrez Work Phone: Podiatry Comment on above: Onychocryptosis (Dia fernandez Dx); Pain in toe of left foot; Pain in toe of right foot; History of amputation of lesser toe of left foot (HCC); Callus of foot; Diabetic mononeuropathy associated with diabetes mellitus due to underlying condition (HCC); Acquired hallux valgus of left foot; Hammer toes of both feet Start: 10-02-2022 Telephone encounter Jazmin Butler DPM Work Phone: [facility] [place] Comment on above: Appointment Start: 08-28-2022 End: 08-28-2022 Patient encounter procedure Jazmin Butler DPM Work Phone: Podiatry Comment on above: Onychocryptosis (Dia fernandez Dx); Onychomycosis; Pain in toe of left foot; Pain in toe of right foot; History of amputation of lesser toe of left foot (HCC); Type 2 diabetes mellitus with diabetic polyneuropathy, with long-term current use of insulin (HCC); Ulcer of toe of left foot, with fat layer exposed (HCC); Morbid obesity (HCC) Start: 07-22-2022 End: 07-22-2022 Patient encounter procedure Osiel RAVI Work Phone: [facility] Comment on above: Burning with urinati on (Primary Dx) Start: 05-22-2022 End: 05-22-2022 Patient encounter procedure Jazmin Butler DPM Work Phone: Podiatry Comment on above: Onychocryptosis (Dia fernandez Dx); Onychomycosis; Pain in toe of left foot; Pain in toe of right foot; History of amputation of lesser toe of left foot (HCC); Type 2 diabetes mellitus with diabetic polyneuropathy, with long-term current use of insulin (HCC); Ulcer of toe of left foot, with fat layer exposed (HCC) Start: 02-20-2022 End: 02-20-2022 Patient encounter procedure Jazmin Butler DPM Work Phone: Podiatry Comment on above: Onychocryptosis (Dia fernandez Dx); Onychomycosis; Pain in toe of left foot; Pain in toe of right foot; History of amputation of lesser toe of left foot (HCC); Type 2 diabetes mellitus with diabetic polyneuropathy, with long-term current use of insulin (HCC); Ulcer of toe of left foot, with fat layer exposed (HCC) Start: 01-22-2022 Telephone encounter Heather peace [employer]COMPUTER INSTALLER Work Phone: [facility] Comment on above: Results Start: 01-18-2022 End: 01-18-2022 Patient encounter procedure Heather Owens APRN.NIKUNJ Work Phone: [facility] Comment on above: Dysuria (Primary Dx) ; Cely rash of groin; Recurrent UTI (urinary tract infection) Start: 11-14-2021 End: 11-14-2021 Patient encounter procedure Jazmin Butler DPM Work Phone: Podiatry Comment on above: History of amputatio n of lesser toe of left foot (HCC) (Primary Dx); Type 2 diabetes mellitus with diabetic polyneuropathy, with long-term current use of insulin (HCC); Comprehensive diabetic foot examination, type 2 DM, encounter for (HCC); Hammer toes of both feet; Pes planus of both feet; Bilateral bunions; Onychocryptosis; Onychomycosis; Pain in toe of left foot; Pain in toe of right foot Start: 08-01-2021 End: 08-01-2021 Patient encounter procedure Jazmin Butler DPM Work Phone: Podiatry Comment on above: Onychocryptosis (Dia fernandez Dx); Onychomycosis; Pain in toe of left foot; Pain in toe of right foot; History of amputation of lesser toe of left foot (HCC); Type 2 diabetes mellitus with diabetic polyneuropathy, with long-term current use of insulin (HCC); Comprehensive diabetic foot examination, type 2 DM, encounter for ([facility]) Start: 07-11-2021 End: 07-11-2021 Subsequent hospital visit by physician [facility] Provider IF [facility] Start: 11-13-2017 End: 11-13-2017 Patient encounter FREDERICK Bardales [facility] Start: 10-14-2017 Patient encounter MARIA Ayala [facility] Start: 04-08-2017 Patient encounter MARIA Ayala [facility] Start: 02-07-2017 Patient encounter MARIA Ayala [facility] Procedures Date Procedure Procedure Detail Performing Clinician Start: 07-22-2022 Urnls dip stick/tabl et rgnt auto w/o microscopy Valeri Lizama PA-C Work Phone: Start: 01-18-2022 Gluc bld gluc mntr d ev cleared fda spec home use [facility] Provider Start: 01-18-2022 Urnls dip stick/tabl et rgnt auto w/o microscopy Heather Owens [employer]ER INST[employer]ER Work Phone: Start: 11-18-2014 End: 05-02-2015 *BMP Frederick Cervantes DO Work Phone: Start: 11-01-2014 End: 11-09-2014 *BMP Frederick Cervantes DO Work Phone: Start: 11-01-2014 End: 11-09-2014 DEXA scan Frederick Cervantes DO Work Phone: Start: 09-27-2014 Mammography [facility] Provid er Start: 09-22-2014 End: 11-09-2014 25-Hydroxyvitamin D2+25-Hydroxyvitamin D3 [Mass/volume] in Serum or Plasma Frederick Hackettman DO Work Phone: Start: 09-22-2014 End: 11-09-2014 Lipid 1996 panel - Serum or Plasma Frederick Hackettman DO Work Phone: Start: 07-22-2014 End: 07-24-2014 *BMP Frederick Hackettman DO Work Phone: Start: 07-22-2014 End: 11-09-2014 EMG Frederick Hackettman DO Work Phone: Start: 07-22-2014 End: 11-09-2014 Mri spinal canal lumbar w/o contrast material Frederick Hackettman DO Work Phone: Start: 07-22-2014 End: 11-09-2014 Nerve Conduction Frederick Hackettman DO Work Phone: Start: 06-22-2014 End: 11-09-2014 Mri spinal canal lumbar w/o contrast material Frederick Hackettman DO Work Phone: Start: 04-11-2014 End: 04-14-2014 *BMP Frederick Hackettman DO Work Phone: Start: 2014 End: 04-14-2014 25-Hydroxyvitamin D2+25-Hydroxyvitamin D3 [Mass/volume] in Serum or Plasma Frederick Hackettman DO Work Phone: Start: 2014 End: 04-14-2014 C reactive protein [Mass/volume] in Serum or Plasma by High sensitivity method Frederick Hackettman DO Work Phone: Start: 2014 End: 04-14-2014 Thyrotropin [Units/volume] in Serum or Plasma Frederick Freedmanutzman DO Work Phone: Start: 2014 End: 04-14-2014 Thyroxine (T4) free [Mass/volume] in Serum or Plasma Frederick Hackettman DO Work Phone: Start: 09-07-2011 Colonoscopy [facility] Provid er Plan of Treatment Date Care Activity Detail Author Start: 07-27-2024 BP Controlled (<130/80) BP Controlled (<130/80) [facility] Start: 03-26-2024 End: 03-26-2024 Patient encounter procedure 03/26/2024 1:40 PM EST Office Visit Podiatry [address] [place] [address] Mercedes Gutierrez [address] [place] [address] 3 month follow up nail care Podiatry Comment on above: 3 month follow up nail care Start: 12-23-2023 End: 12-23-2023 Patient encounter procedure 12/23/2023 1:00 PM EDT Office Visit Podiatry [address] [place] [address] Mercedes Gutierrez [address] [place] [address] 3 MONTH FOLLOW UP NAIL CARE Podiatry Comment on above: 3 MONTH FOLLOW UP NAIL CARE Start: 11-23-2023 Covid-19 Vaccine ( season) Covid-19 Vaccine ( season) [facility] Start: 11-23-2023 Influenza vaccination [facility] Start: 09-22-2023 End: 09-22-2023 Patient encounter procedure 09/22/2023 11:45 AM EDT Office Visit Podiatry [address] [place] [address] Mercedes Gutierrez [address] [place] [address] 2 WEEK FOLLOW UP Podiatry Comment on above: 2 WEEK FOLLOW UP Start: 09-15-2023 End: 09-15-2023 Patient encounter procedure 09/15/2023 4:00 PM EDT Office Visit Podiatry [address] [place] [address] Mercedes Gutierrez [address] [place] [address] s/p Podiatry Comment on above: s/p Start: 09-01-2023 End: 09-01-2023 Patient encounter procedure 09/01/2023 1:00 PM EDT Office Visit Podiatry [address] [place] [address] Mercedes Gutierrez [address] [place] [address] s/p Podiatry Comment on above: s/p Start: 08-30-2023 3 comp foot exam completed DIABETIC FOOT EXAM [facility] Start: 08-30-2023 Diabetic foot examination Diabetic Foot Exam [facility] Start: 08-21-2023 End: 08-21-2023 Patient encounter procedure 08/21/2023 1:30 PM EDT Office Visit Podiatry [address] [place] [address] Mercedes Gutierrez [address] [place] [address] s/p Podiatry Comment on above: s/p Start: 08-14-2023 End: 08-14-2023 Patient encounter procedure 08/14/2023 1:00 PM EDT Office Visit Podiatry [address] [place] [address] Mercedes Gutierrez [address] [place] [address] s/p Podiatry Comment on above: s/p Start: 08-11-2023 End: 08-11-2023 Admission to same day surgery center 08/11/2023 9:44 AM EDT - 08/11/2023 10:56 AM EDT [facility] [address] [place] [address], [place] [address] Mercedes Gutierrez [address] [place] [address] TENOTOMY FOOT FLEXOR, OPEN [facility] Comment on above: TENOTOMY FOOT FLEXOR, OPEN Start: 08-11-2023 Subsequent hospital visit by physician 08/11/2023 9:44 AM EDT Hospital Encounter [facility] [address] [place] [address] Mercedes Gutierrez [address] [address] Hammer toe of left foot [M20.42] [facility] Comment on above: Hammer toe of left foot [M20.42] Start: 08-11-2023 End: 08-11-2023 Tx opn tendon flexor foot single/mult tendon spx TENOTOMY FOOT FLEXOR, OPEN Hammer toe of left foot 08/11/2023 9:44 AM EDT [facility] Start: 08-11-2023 End: 08-11-2023 Tx opn tendon flexor foot single/mult tendon spx TENOTOMY FOOT FLEXOR, OPEN Hammer toe of left foot 08/11/2023 7:40 AM EDT [facility] Start: 03-24-2023 Advance Directive Discussion Advance Directive Discussion [facility] Start: 03-24-2023 Behavioral Health Screening Behavioral Health Screening [facility] Start: 11-22-2022 Covid-19 Vaccine ( season) Covid-19 Vaccine ( season) [facility] Start: 11-22-2022 Influenza vaccination [facility] Start: 08-01-2022 3 comp foot exam completed DIABETIC FOOT EXAM [facility] Start: 07-11-2022 Creatinine measurement Serum Creatinine [facility] Start: 03-24-2022 ADVANCE DIRECTIVE DISCUSSION ADVANCE DIRECTIVE DISCUSSION [facility] Start: 03-24-2022 DEPRESSION ASSESSMENT DEPRESSION ASSESSMENT [facility] Start: 01-18-2022 End: 03-20-2022 Bacteria identified in Urine by Culture [facility] Work Phone: Comment on above: Expected: 01/18/2022, Expires: Start: 01-18-2022 End: 03-20-2022 Fungus identified in Unspecified specimen by Culture [facility] Work Phone: Comment on above: Expected: 01/18/2022, Expires: 2 Start: 11-22-2021 Influenza vaccination [facility] Start: 10-26-2021 COVID-19 VACCINE (5 - Booster for Pfizer series) COVID-19 VACCINE (5 - Booster for Pfizer series) [facility] Start: 10-26-2021 COVID-19 VACCINE (5 - Pfizer series) COVID-19 VACCINE (5 - Pfizer series) [facility] Start: 03-24-2021 ADVANCE DIRECTIVE DISCUSSION ADVANCE DIRECTIVE DISCUSSION [facility] Start: 03-24-2021 DEPRESSION ASSESSMENT DEPRESSION ASSESSMENT [facility] Start: 01-26-2021 3 comp foot exam completed DIABETIC FOOT EXAM [facility] Start: 02-26-2020 Pneumococcal Vaccine: 65+ (2 of 2 - PCV) Pneumococcal Vaccine: 65+ (2 of 2 - PCV) [facility] Start: 07-22-2019 Hemoglobin A1c measurement HbA1C [facility] Start: 07-22-2019 Hemoglobin A1c/Hemoglobin.total in Blood HBA1C [facility] Start: 02-10-2019 Hemoglobin A1c/Hemoglobin.total in Blood HBA1C [facility] Start: 06-06-2017 Glaucoma screening Dilated Retinal Exam [facility] Start: 06-06-2017 Hepatitis C antibody, confirmatory test DILATED RETINAL EXAM [facility] Start: 04-15-2017 End: 04-15-2017 Appointment Appointment [facility] Work Phone: Start: 01-14-2017 End: 01-14-2017 *CMP Complete Metabolic Panel *CMP Complete Metabolic Panel [facility] Work Phone: Start: 01-14-2017 End: 01-14-2017 *Microalbumin, Creatine Ratio, rand urine *Microalbumin, Creatine Ratio, rand urine [facility] Work Phone: Start: 01-14-2017 End: 01-14-2017 Hemoglobin A1c/Hemoglobin.total mass fraction (Bld) *HgA1C [facility] Work Phone: Start: 01-14-2017 End: 01-14-2017 Lipid panel [AGGREGATE] *Lipid Profile [facility] Work Phone: Start: 10-16-2016 End: 10-27-2016 *CMP Complete Metabolic Panel *CMP Complete Metabolic Panel [facility] Work Phone: Start: 10-16-2016 End: 10-27-2016 *Microalbumin, Creatine Ratio, rand urine *Microalbumin, Creatine Ratio, rand urine [facility] Work Phone: Start: 10-16-2016 End: 10-27-2016 Hemoglobin A1c/Hemoglobin.total mass fraction (Bld) *HgA1C [facility] Work Phone: Start: 10-16-2016 End: 10-27-2016 Lipid panel [AGGREGATE] *Lipid Profile [facility] Work Phone: Start: 06-28-2016 Hepatitis B screening URINE ALBUMIN:CREATININE RATIO [facility] Start: 06-28-2016 Hepatitis B surface antibody level LDL CHOLESTEROL [facility] Start: 2016 BONE DENSITY BONE DENSITY [facility] Start: 2016 Bone Density Screening Bone Density Screening [facility] Start: 2016 PNEUMOVAX AGE 65 AND OVER WITH 5YR LOOKBACK (#1) PNEUMOVAX AGE 65 AND OVER WITH 5YR LOOKBACK (#1) [facility] Start: 2016 Screening for osteoporosis Bone Density Screening [facility] Start: 11-07-2015 End: 11-07-2015 Radex shoulder complete minimum 2 views X-Ray, Shoulder [facility] Work Phone: Start: 10-05-2015 End: 10-10-2015 Physical Therapy General Physical Therapy General Julio Cesar Sesay, [facility], [address], [place], [address] [facility] Work Phone: Start: 10-05-2015 End: 10-05-2015 Radex spine cervical 2 or 3 views X-Ray, Spine, Cervical 2-3 views [facility] Work Phone: Start: 10-02-2015 End: 10-05-2015 Gastroenterology Referral Gastroenterology Referral Shitaldheeraj Randhawa, [address], [address], [place], [address] [facility] Work Phone: Start: 09-28-2015 Mammography [facility] Start: 09-28-2015 Screening for malignant neoplasm of breast Mammogram Screening [facility] Start: 05-01-2015 End: 05-01-2015 *BMP *BMP [facility] Work Phone: Start: 01-02-2015 End: 01-02-2015 Us abdominal real time w/image limited US Abdomen, limited [facility] Work Phone: Start: 12-08-2014 End: 12-08-2014 Egd transoral biopsy single/multiple Upper gastrointestinal endoscopy; with biopsy [facility] Work Phone: Start: 12-02-2014 End: 12-02-2014 Surgery Referral Surgery Referral Jesica Brown, [facility], [address], [place], [address] [facility] Work Phone: Start: 11-18-2014 End: 05-02-2015 *BMP *BMP [facility] Work Phone: Start: 11-01-2014 End: 11-09-2014 *BMP *BMP [facility] Work Phone: Start: 11-01-2014 End: 11-09-2014 DEXA scan DEXA scan [facility] Work Phone: Start: 09-22-2014 End: 11-09-2014 25-Hydroxyvitamin D2+25-Hydroxyvitamin D3 [Mass/volume] in Serum or Plasma *Vitamin D (Calciferol) [facility] Work Phone: Start: 09-22-2014 End: 11-09-2014 Lipid panel [AGGREGATE] *Lipid Profile [facility] Work Phone: Start: 08-23-2014 End: 08-25-2014 Other Referral Other Referral [facility], [address], [place], [address] [facility] Work Phone: Start: 07-22-2014 End: 07-24-2014 *BMP *BMP [facility] Work Phone: Start: 07-22-2014 End: 11-09-2014 EMG EMG [facility] Work Phone: Start: 07-22-2014 End: 11-09-2014 Mri spinal canal lumbar w/o contrast material MRI Lumbar Spine [facility] Work Phone: Start: 07-22-2014 End: 11-09-2014 Nerve Conduction Nerve Conduction [facility] Work Phone: Start: 06-22-2014 End: 11-09-2014 Mri spinal canal lumbar w/o contrast material MRI Lumbar Spine [facility] Work Phone: Start: 04-11-2014 End: 04-14-2014 *BMP *BMP [facility] Work Phone: Start: 2014 End: 04-14-2014 25-Hydroxyvitamin D2+25-Hydroxyvitamin D3 [Mass/volume] in Serum or Plasma *Vitamin D (Calciferol) [facility] Work Phone: Start: 2014 End: 04-14-2014 C reactive protein (hsCRP) *CRP - C-Reative Protein [facility] Work Phone: Start: 2014 End: 04-14-2014 Thyroid stimulating hormone (TSH) *TSH [facility] Work Phone: Start: 2014 End: 04-14-2014 Thyroxine (T4) free *T4 free [facility] Work Phone: Start: 09-06-2012 Colonoscopy COLONOSCOPY [facility] Start: 09-06-2012 COLORECTAL CANCER SCREENING COLORECTAL CANCER SCREENING [facility] Start: 09-06-2012 Screening for malignant neoplasm of colon [facility] Start: 2011 Hepatitis B Vaccine (1 of 3 - Risk 3-dose series) Hepatitis B Vaccine (1 of 3 - Risk 3-dose series) [facility] Start: 2011 RSV Vaccine (1 - 1-dose 60+ series) RSV Vaccine (1 - 1-dose 60+ series) [facility] Start: 2011 RSV Vaccine (1 - Risk 60-74 years 1-dose series) RSV Vaccine (1 - Risk 60-74 years 1-dose series) [facility] Start: 01-22-2009 Pneumococcal Vaccine: 65+ (2 - PCV) Pneumococcal Vaccine: 65+ (2 - PCV) [facility] Start: 01-22-2009 PNEUMOCOCCAL: 65+ (2 - PCV) PNEUMOCOCCAL: 65+ (2 - PCV) [facility] Start: 2001 SHINGRIX VACCINE (1 of 2) SHINGRIX VACCINE (1 of 2) [facility] Start: 1996 COLOGUARD (FIT-DNA) COLOGUARD (FIT-DNA) [facility] Start: [address] COLONOGRAPHY [facility] Start: 1996 FECAL OCCULT BLOOD FECAL OCCULT BLOOD [facility] Start: 1996 Screening for malignant neoplasm of colon [facility] Start: 1996 SIGMOIDOSCOPY SIGMOIDOSCOPY [facility] Start: 1970 Urine microalbumin profile [facility] Start: 1969 ANNUAL PCP TEAM CHRONIC DISEASE VISIT ANNUAL PCP TEAM CHRONIC DISEASE VISIT [facility] Start: 1969 Anxiety Screening Anxiety Screening [facility] Start: 1969 BP CONTROLLED (<130/80) BP CONTROLLED (<130/80) [facility] Start: 1969 Depression Screening Depression Screening [facility] Start: 1969 HEPATITIS C SCREENING HEPATITIS C SCREENING [facility] Start: 1969 Hepatitis C screening Hepatitis C Screening [facility] Start: 1963 Adult depression screening assessment DEPRESSION SCREENING [facility] Start: 1956 COVID-19 VACCINE (#1) COVID-19 VACCINE (#1) [facility] Start: 1956 COVID-19 VACCINE (1) COVID-19 VACCINE (1) [facility] Start: 1951 COVID-19 VACCINE (#1) COVID-19 VACCINE (#1) [facility] Bacteria identified in Urine by Culture URINE CULTURE Microbiology Routine Burning with urination 07/22/2022 3:31 PM EDT [facility] Work Phone: Glucose [Mass/volume ] in Serum or Plasma GLUCOSE, BLOOD (POC) Lab Routine Dysuria Ordered: 01/18/2022 [facility] Work Phone: Comment on above: Ordered: 01/18/2022 End: 09-19-2024 XR Foot - right AP and Lateral and oblique XR FOOT GENERAL 3V AP/LAT/OBL RIGHT Radiology STAT Hammertoe of left foot Ulcer of toe of left foot, limited to breakdown of skin (HCC) 1 Occurrences starting 08/21/2023 until 09/19/2024 [facility] Work Phone: Comment on above: 1 Occurrences starting 08/21/2023 until 09/19/2024 End: 12-13-2023 XR FOOT GENERAL 3V AP/LAT/OBL LEFT XR FOOT GENERAL 3V AP/LAT/OBL LEFT Radiology Routine Acquired hallux valgus of left foot Hammer toes of both feet 1 Occurrences starting 11/13/2022 until 12/13/2023 [facility] Work Phone: Comment on above: 1 Occurrences starting 11/13/2022 until 12/13/2023 XR FOOT GENERAL 3V AP/LAT/OBL LEFT XR FOOT GENERAL 3V AP/LAT/OBL LEFT Radiology Routine Acquired hallux valgus of left foot Hammer toes of both feet 11/13/2022 3:41 PM EDT [facility] Work Phone: [facility] Immunizations Immunization Date Immunization Notes Care Provider Tiffani melgar 12-31-2021 influenza virus vacc ine, unspecified formulation Mercedes Gutierrez Work Phone: [facility] 01-23-2008 pneumococcal polysaccharide vaccine, 23 valent [facility] Provider [facility] Work Phone: Payers Date Payer Category Payer Medicare [employer] MEDICARE [employer] GOLD PLUS [id number] 2020-Present [id number] [place] [id number] O [id number] 2020 Medicare HUMANA MEDICARE [employer] GOLD PLUS [id number] 2020-Present [phone] [address] [address] [place] [address] HMO [id number] 2020 Private Health Insurance [id number] 2016 Unknown [id number] Social History Date Type Detail Facility Start: 08-02-2014 End: 01-18-2022 Tobacco smoking status NHIS Ex-smoker [facility] Start: 1978 End: 1985 History of tobacco use Current smoker [facility] Start: 1978 End: 1985 History of tobacco use Cigarette Smoker [facility] Start: 09-06-2020 End: 12-23-2023 Alcohol intake Current drinker of alcohol (finding) [facility] Start: 05-21-2010 History SDOH Alcohol Comment Occasional [facility] Start: 06-10-2014 Tobacco Comment smoked sociall y-on the weekends 1-2 [facility] Start: 1950 Sex Assigned At Not on file [facility] Start: 08-02-2014 End: 09-01-2023 Cigarettes smoked current (pack per day) - Reported 0.1 [facility] Start: 08-02-2014 End: 01-18-2022 Tobacco use and exposure Smokeless tobacco non-user [facility] Work Phone: Start: 11-04-2021 End: 02-20-2022 Exposure to SARS-CoV-2 (event) Not sure [facility] Start: 01-18-2022 Tobacco Comment Smoked sociall y, on the weekends 1-2. Parents smoked in childhood home. Ex-spouse was a smoker. [facility] Start: 07-22-2022 End: 09-01-2023 Tobacco use panel [facility] National Score (1-10 0), lower number is lower risk 99 [facility] Medical Equipment Procedure Code Equipment Code Equipment Origin al Text Equipment Identifier Dates Apply 1 applicat ion to affected area once daily. [id number] Start: 10-17-2017 End: 07-28-2023 Comment on above: Apply 1 application to affected area once daily. Clinical Notes 06-28-2015 to 12-25-2023 Matt Mercedes - 12/25/2023 9:44 PM EDTSCheyenne ramirez LPN - 12/23/2023 11:31 AM EDTPatient InstructionsMercedes Gutierrez - 09/23/2023 7:58 AM EDTAlicia Jara RN - 09/22/2023 11:46 AM EDT Note Date & Type Note Facility 12-25-2023 Note HNO ID: [id number] Author: MERCEDES GUTIERREZ, ? Service: ? Author Type: Physician Type: Progress Notes Filed: 12/25/2023 21:48 Note Text: Last saw pcp: not in chart Subjective: This 73 year old female presents to clinic for diabetic foot check. Patient has denies any complaints. She has no complaints of open wounds since having the flexor tenotomy of left 2nd, 3rd and 5th toe. Patient admits to being diabetic for multiple years now. Patient +B/T/N in feet at this time. Patient -pain in legs when walking. No other pedal complaints at this time. No change in medications or medical history since last visit. PAIN EVALUATION 12/23/2023 1132 Pain Location: Other: See Comment bilateral feet Description: Sore Duration Units: Months Frequency: Continuous Intervention/Comfort measure: Reposition;Relaxation Hemoglobin A1C (%) Date Value 01/21/2019 7.8 12/10/2018 8.2 12/07/2018 8.3 10/29/2018 8.8 08/10/2018 7.4 PCP: Frederick Cervantes DO PAST MEDICAL HISTORY Diagnosis Date Diastolic dysfunction, left ventricle 07/28/2014 06/13/2014 echocardiogram. Essential hypertension, benign Hallux valgus (acquired) 12/20/2010 Menopause SHANNON (obstructive sleep apnea) 08/01/14 Severe. 08/01/14 [facility] PSG with AHI 29.4-30.5. Corrected with 16 cm CPA with humidification. Poor balance 03/03/2013 Post-menopausal 09/09/2011 Sciatica of left side 03/14/2014 Due to lumbar spondylosis/stenosis. Type II or unspecified type diabetes mellitus without mention of complication, not stated as uncontrolled Unspecified asthma(493.90) Current Outpatient Medications Medication Sig doxycycline hyclate (VIBRAMYCIN) 100 mg capsule Take 1 capsule (100 mg) by mouth two times a day. HYDROcodone-acetaminophen (NORCO) 5-325 mg per tablet Take 1 tablet by mouth three times a day as needed for pain. pregabalin (LYRICA) 75 mg capsule 175 mg. pioglitazone (ACTOS) 15 mg tablet omeprazole (PRILOSEC) 40 mg capsule Take 1 capsule by mouth once daily. isosorbide mononitrate ER (IMDUR) 30 mg 24 hr tablet hydroCHLOROthiazide 25 mg tablet furosemide (LASIX) 40 mg tablet Take 2 tablets by mouth every afternoon. ezetimibe (ZETIA) 10 mg tablet Take by mouth. amLODIPine (NORVASC) 5 mg tablet DULoxetine (CYMBALTA) 20 mg capsule Take 1 capsule by mouth once daily. traMADol (ULTRAM) 50 mg tablet Take 50 mg by mouth every 6 hours as needed for pain. meloxicam (MOBIC ORAL) Take by mouth. insulin 70/30 NPH/regular units/mL (NOVOLIN 70/30) 50 [...] sparingly to perineum twice daily for irritation/infection. No current facility-administered medications for this visit. [...] Detached Retina Sister Diabetes Sister Hypertension Brother Anesthesia Problems No Family History Social History Tobacco Use Smoking status: Former Current packs/day: 0.00 Average packs/day: 0.1 packs/day for 8.0 years (0.8 ttl pk-yrs) Types: Cigarettes Start date: 1978 Quit date: 1985 Years since quittin.7 Smokeless tobacco: Never Tobacco comments: Smoked socially, on the weekends 1-2. Parents smoked in childhood home. Ex-spouse was a smoker. Vaping Use Vaping status: Never Used Substance Use Topics Alcohol use: Yes Comment: Occasional. Drug use: No REVIEW OF SYSTEMS GENERAL: Negative for Malaise, significant weight loss, fever RESPIRATORY: Negative for cough, wheezing and shortness of breath CARDIOVASCULAR: Negative for chest pain, leg swelling and palpitations GI: Negative for abdominal discomfort, blood in stools or black stools and change in bowel habits : Negative for dysuria, frequency and (more content not included)... [facility] 12-25-2023 History of Presen t illness Narrative Images from the original note were not included. Last saw pcp: not in chart Subjective: This 73 year old female presents to clinic for diabetic foot check. Patient has denies any complaints. She has no complaints of open wounds since having the flexor tenotomy of left 2nd, 3rd and 5th toe. Patient admits to being diabetic for multiple years now. Patient +B/T/N in feet at this time. Patient -pain in legs when walking. No other pedal complaints at this time. No change in medications or medical history since last visit. PAIN EVALUATION 12/23/2023 1132 Pain Location: Other: See Comment bilateral feet Description: Sore Duration Units: Months Frequency: Continuous Intervention/Comfort measure: Reposition;Relaxation Hemoglobin A1C (%) Date Value 01/21/2019 7.8 12/10/2018 8.2 12/07/2018 8.3 10/29/2018 8.8 08/10/2018 7.4 PCP: Frederick Cervantes DO PAST MEDICAL HISTORY Diagnosis Date Diastolic dysfunction, left ventricle 07/28/2014 06/13/2014 echocardiogram. Essential hypertension, benign Hallux valgus (acquired) 12/20/2010 Menopause SHANNON (obstructive sleep apnea) 08/01/14 Severe. 08/01/14 [facility] PSG with AHI 29.4-30.5. Corrected with 16 cm CPA with humidification. Poor balance 03/03/2013 Post-menopausal 09/09/2011 Sciatica of left side 03/14/2014 Due to lumbar spondylosis/stenosis. Type II or unspecified type diabetes mellitus without mention of complication, not stated as uncontrolled Unspecified asthma(493.90) Current Outpatient Medications Medication Sig doxycycline hyclate (VIBRAMYCIN) 100 mg capsule Take 1 capsule (100 mg) by mouth two times a day. HYDROcodone-acetaminophen (NORCO) 5-325 mg per tablet Take 1 tablet by mouth three times a day as needed for pain. pregabalin (LYRICA) 75 mg capsule 175 mg. pioglitazone (ACTOS) 15 mg tablet omeprazole (PRILOSEC) 40 mg capsule Take 1 capsule by mouth once daily. isosorbide mononitrate ER (IMDUR) 30 mg 24 hr tablet hydroCHLOROthiazide 25 mg tablet furosemide (LASIX) 40 mg tablet Take 2 tablets by mouth every afternoon. ezetimibe (ZETIA) 10 mg tablet Take by mouth. amLODIPine (NORVASC) 5 mg tablet DULoxetine (CYMBALTA) 20 mg capsule Take 1 capsule by mouth once daily. traMADol (ULTRAM) 50 mg tablet Take 50 mg by mouth every 6 hours as needed for pain. meloxicam (MOBIC ORAL) Take by mouth. insulin 70/30 NPH/regular units/mL (NOVOLIN 70/30) 50 [...] sparingly to perineum twice daily for irritation/infection. No current facility-administered medications for this visit. [...] Detached Retina Sister Diabetes Sister Hypertension Brother Anesthesia Problems No Family History Social History Tobacco Use Smoking status: Former Current packs/day: 0.00 Average packs/day: 0.1 packs/day for 8.0 years (0.8 ttl pk-yrs) Types: Cigarettes Start date: 1978 Quit date: 1985 Years since quittin.7 Smokeless tobacco: Never Tobacco comments: Smoked socially, on the weekends 1-2. Parents smoked in childhood home. Ex-spouse was a smoker. Vaping Use Vaping status: Never Used Substance Use Topics Alcohol use: Yes Comment: [...] Objective: Patient presents to clinic ambulating in [facility] Constitutional: Pt is a well developed 73 [...] warm proximal to distal bilateral. There is moderate edema or varicosities noted. Hair growth present. Neuro: Protective sensation is absent to the foot and toes when tested with the 5.07 SWM bilateral. Vibratory sensation is absent at the hallux bilateral. + Significant neurological defecits. Derm: Inspection and palpation performed. Nails 1-5 right and 1,2,3,5 left are discolored-yellow, thick, crumbly, dystrophic and with subungal debris. Skin is of normal turgor and texture. Hyperkeratosis not present. NO ulcerations, scars, verruca or other lesions noted. Ortho: Ankle joint DF is decreased with the knee extended and decreased with knee flexed. No pain or crepitus noted. STJ, MTJ ROM are full and free of pain or crepitus. Muscle strength is 5/5 for dorsiflexors, plantarflexors, inverters, everters. Digital deformities include subtle hammertoes of right foot. Left 4th toe amputation. Assessment: (L60.0) Onychocryptosis (primary encounter diagnosis) (M79.674) Pain in toe of right foot (M79.675) Pain in toe of left foot (Z89.422) History of amputation of lesser toe of left foot ([facility]) (E08.42) Diabetic polyneuropathy associated with diabetes mellitus due to underlying condition ([facility]) (M20.42) Hammertoe of left foot Plan: 1. Patient was seen and evaluated. 2. Patient was instructed on the continued importance of diabetic foot care along with proper diet and keeping their blood sugar under control to prevent complications. Stressed the importance of avoiding barefoot walking, wearing good shoes and inspection of feet Instructions given both oral and written. 3. Toenails 1-5 right and 1,2,3,5 left were debrided in length and thickness 4. F/u in 3 months Mercedes Gutierrez DPM AMB ROOMING INTAKE FLOWSHEET DATA Pain Pain Location: Other: See Comment (bilateral feet) Description: Sore Duration Units: Months Frequency: Continuous Intervention/Comfort measure: Reposition, Relaxation Patient presents with: Left Foot - Established Patient, Follow Up, Diabetic Foot Check Right Foot - Established Patient, Follow Up, Diabetic Foot Check Cheyenne Sánchez LPN documented in this encounter [facility] 12-23-2023 Instructions Mercedes Gutierrez - 12/23/2023 11:51 AM EDT Diabetes Foot Care Instructions When you [...] (or decreased sensation in your feet) a accountant auditor should always cut your toenails. Be Careful [...] Go to your health care provider or accountant auditor to treat these conditions. documented in this encounter [facility] 12-23-2023 Note HNO ID: [id number] Author: CHEYENNE SÁNCHEZ LPN Service: ? Author Type: LICENSED NURSE Type: Progress Notes Filed: 12/25/2023 21:48 Note Text: AMB ROOMING INTAKE FLOWSHEET DATA Pain Pain Location: Other: See Comment (bilateral feet) Description: Sore Duration Units: Months Frequency: Continuous Intervention/Comfort measure: Reposition, Relaxation Patient presents with: Left Foot - Established Patient, Follow Up, Diabetic Foot Check Right Foot - Established Patient, Follow Up, Diabetic Foot Check Cheyenne Sánchez LPN [facility] 09-23-2023 Note HNO ID: [id number] Author: MERCEDES GUTIERREZ, ? Service: ? Author Type: Physician Type: Progress Notes Filed: 09/23/2023 08:02 Note Text: Last saw pcp: not in chart Subjective: Patient presents to clinic c/o painful toenails. They state that the nails are especially painful with shoe gear and pressure. Patient here also for follow-up left foot s/p open tenotomy of left 2nd, 3rd, 5th toes. She states her wounds are now healed. Doing well. Patient admits to being diabetic. No other pedal complaints at this time. Patient states no change in medications or medical history since last visit. Objective: Patient presents to clinic ambulating in diabetic shoe Vasc: DP and PT pulses are palpable bilateral. CFT is less than 5 seconds bilateral. Skin temperature is warm to cool proximal to distal bilateral. There is mild edema or varicosities noted. Neuro: Protective sensation is absent to the foot and toes when tested with the 5.07 SWM bilateral. Vibratory sensation is absent at the hallux IPJ bilateral. The hallux is downgoing bilateral. Derm: Nails 1-5 right and 1 left are discolored-yellow, thick, crumbly, dystrophic and with subungal debris. Skin is of normal turgor, texture and hair growth is present bilateral. There are no hyperkeratosis, ulcerations, scars, verruca or other lesions noted. Prior incisions of left 2nd, 3rd and 5th toe are now healed. Prior ulceration of left 2nd and left 5th toe are now healed. No signs of infection Ortho: large bunion is present to b/l feet. No calf pain present b/l. Assessment: (L60.0) Onychocryptosis (primary encounter diagnosis) (E08.42) Diabetic polyneuropathy associated with diabetes mellitus due to underlying condition (HCC) (M79.674) Pain in toe of right foot (M79.675) Pain in toe of left foot (M20.42) Hammertoe of left foot (L84) Callus of foot Plan: Patient was seen and evaluated. Nails 1-5 right and left hallux were debrided in length and thickness. All nails were then reduced with dremmel. Patient was instructed on the continued importance of diabetic foot care along with proper diet and keeping their blood sugar under control to prevent complications. Patient has neuropathy and stressed the importance of avoiding barefoot walkingand wearing good shoes. Patient is s/p open tenotomy of left 2nd, 3rd and 5th toes. The wounds are now healed. The incisions are now healed. No recurrent ulceration. Patient is very happy with outcome. Pics entered into [facility] Patient is to RTC in 3-4 months. Mercedes Gutierrez DPM [facility] 09-23-2023 History of Presen t illness Narrative Last saw pcp: not in chart Subjective: Patient presents to clinic c/o painful toenails. They state that the nails are especially painful with shoe gear and pressure. Patient here also for follow-up left foot s/p open tenotomy of left 2nd, 3rd, 5th toes. She states her wounds are now healed. Doing well. Patient admits to being diabetic. No other pedal complaints at this time. Patient states no change in medications or medical history since last visit. Objective: Patient presents to clinic ambulating in diabetic shoe Vasc: DP and PT pulses are palpable bilateral. CFT is less than 5 seconds bilateral. Skin temperature is warm to cool proximal to distal bilateral. There is mild edema or varicosities noted. Neuro: Protective sensation is absent to the foot and toes when tested with the 5.07 SWM bilateral. Vibratory sensation is absent at the hallux IPJ bilateral. The hallux is downgoing bilateral. Derm: Nails 1-5 right and 1 left are discolored-yellow, thick, crumbly, dystrophic and with subungal debris. Skin is of normal turgor, texture and hair growth is present bilateral. There are no hyperkeratosis, ulcerations, scars, verruca or other lesions noted. Prior incisions of left 2nd, 3rd and 5th toe are now healed. Prior ulceration of left 2nd and left 5th toe are now healed. No signs of infection Ortho: large bunion is present to b/l feet. No calf pain present b/l. Assessment: (L60.0) Onychocryptosis (primary encounter diagnosis) (E08.42) Diabetic polyneuropathy associated with diabetes mellitus due to underlying condition (HCC) (M79.674) Pain in toe of right foot (M79.675) Pain in toe of left foot (M20.42) Hammertoe of left foot (L84) Callus of foot Plan: Patient was seen and evaluated. Nails 1-5 right and left hallux were debrided in length and thickness. All nails were then reduced with dremmel. Patient was instructed on the continued importance of diabetic foot care along with proper diet and keeping their blood sugar under control to prevent complications. Patient has neuropathy and stressed the importance of avoiding barefoot walkingand wearing good shoes. Patient is s/p open tenotomy of left 2nd, 3rd and 5th toes. The wounds are now healed. The incisions are now healed. No recurrent ulceration. Patient is very happy with outcome. Pics entered into [facility] Patient is to RTC in 3-4 months. Mercedes Gutierrez DPM Patient presents with: Left Foot - Established Patient, Follow Up, Post Op, Diabetic Foot Check Right Foot - Established Patient, Follow Up, Diabetic Foot Check Patient presents for 35 day follow up of Left 2nd, 3rd, and 5th toes flexor tenotomy that was performed 08/11/23. Denies any pain, toes are dry at this time. Patient also states that she needs her toenails trimmed. Due for diabetic foot check documented in this encounter [facility] 09-22-2023 Note HNO ID: [id number] Author: ALICIA JARA, RN Service: ? Author Type: Registered Nurse Type: Progress Notes Filed: 09/23/2023 08:02 Note Text: Patient presents with: Left Foot - Established Patient, Follow Up, Post Op, Diabetic Foot Check Right Foot - Established Patient, Follow Up, Diabetic Foot Check Patient presents for 35 day follow up of Left 2nd, 3rd, and 5th toes flexor tenotomy that was performed 08/11/23. Denies any pain, toes are dry at this time. Patient also states that she needs her toenails trimmed. Due for diabetic foot check [facility] 09-02-2023 Note HNO ID: [id number] Author: MERCEDES GUTIERREZ, ? Service: ? Author Type: Physician Type: Progress Notes Filed: 09/02/2023 06:45 Note Text: FOLLOW UP PODIATRIC OFFICE VISIT Chief Complaint: This 73 year old who presents for follow up:left 2nd, 3rd and 5th toe Patient presents to clinic for follow-up left 2nd, 3rd and 5th toe s/p open tenotomy Has wound dehiscence to left 2nd toe for which she is applying aquacel. Is using surgical shoe Feels the wound is progressing nicely PAIN EVALUATION No data found in the last 1 encounters. Hemoglobin A1C Date Value Ref Range Status 01/21/2019 7.8 (H) 4.3 - 6.0 % Final PCP: Freedrick Cervantes DO PAST MEDICAL HISTORY Diagnosis Date Diastolic dysfunction, left ventricle 07/28/2014 06/13/2014 echocardiogram. Essential hypertension, benign Hallux valgus (acquired) 12/20/2010 Menopause SHANNON (obstructive sleep apnea) 08/01/14 Severe. 08/01/14 [facility] PSG with AHI 29.4-30.5. Corrected with 16 cm CPA with humidification. Poor balance 03/03/2013 Post-menopausal 09/09/2011 Sciatica of left side 03/14/2014 Due to lumbar spondylosis/stenosis. Type II or unspecified type diabetes mellitus without mention of complication, not stated as uncontrolled Unspecified asthma(493.90) Current Outpatient Medications Medication Sig doxycycline hyclate (VIBRAMYCIN) 100 mg capsule Take 1 capsule (100 mg) by mouth two times a day. HYDROcodone-acetaminophen (NORCO) 5-325 mg per tablet Take 1 tablet by mouth three times a day as needed for pain. pregabalin (LYRICA) 75 mg capsule pioglitazone (ACTOS) 15 mg tablet omeprazole (PRILOSEC) 40 mg capsule Take 1 capsule by mouth once daily. isosorbide mononitrate ER (IMDUR) 30 mg 24 hr tablet hydroCHLOROthiazide 25 mg tablet furosemide (LASIX) 40 mg tablet Take 2 tablets by mouth every afternoon. ezetimibe (ZETIA) 10 mg tablet Take by mouth. amLODIPine (NORVASC) 5 mg tablet DULoxetine (CYMBALTA) 20 mg capsule Take 1 capsule by mouth once daily. traMADol (ULTRAM) 50 mg tablet Take 50 mg by mouth every 6 hours as needed for pain. (Patient not taking: Reported on 08/14/2023) meloxicam (MOBIC ORAL) Take by mouth. (Patient not taking: Reported on 07/28/2023) nystatin-triamcinolone (MYCOLOG) ointment Apply sparingly to perineum twice daily for irritation/infection. insulin 70/30 NPH/regular units/mL (NOVOLIN 70/30) 50 units sc at breakfast, 55 units at lunch, 82 units at supper. (Patient taking differently: 70/90 units depending on sugars) potassium chloride ER (K-DUR, KLOR-CON) 20 mEq tablet Take 1 tablet by mouth once daily. (Patient not taking: Reported on 07/28/2023) losartan (COZAAR) 100 mg tablet Take 1 tablet by mouth once daily. (Patient not taking: Reported on 07/28/2023) insulin needles, DISPOSABLE, (PEN NEEDLE) 31 X [...] anxious. NVSI unchanged from previous visit. Dermatological: Surgical incision of left 2nd toe is nearly healed with exception to small 1 mm pinpoint opening. No signs of infection Surigcal incisions to 3rd and 5th toe have dry skin along periophery. No deep wounds noted. Prior ulceration of left 2nd and 5th toe are now healed without infection. ASSESSMENT: (M20.42) Hammertoe of left foot (primary encounter diagnosis) (L97.521) Ulcer of toe of left foot, limited to breakdown of skin (HCC) (T81.30XA) Wound dehiscence PLAN: Patient is s/p open tenotomy of left 2nd, 3rd and 5th toe. Her prior ulceration of left 2nd and left 5th toe are healed and remain healed. We discussed the future benefit this tenotomy should afford to hopefully prevent recurrent wounds. Still has some contracture to the (more content not included)... [facility] 09-02-2023 History of Presen t illness Narrative FOLLOW UP PODIATRIC OFFICE VISIT Chief Complaint: This 73 year old who presents for follow up:left 2nd, 3rd and 5th toe Patient presents to clinic for follow-up left 2nd, 3rd and 5th toe s/p open tenotomy Has wound dehiscence to left 2nd toe for which she is applying aquacel. Is using surgical shoe Feels the wound is progressing nicely PAIN EVALUATION No data found in the last 1 encounters. Hemoglobin A1C Date Value Ref Range Status 01/21/2019 7.8 (H) 4.3 - 6.0 % Final PCP: Frederick Cervantes DO PAST MEDICAL HISTORY Diagnosis Date Diastolic dysfunction, left ventricle 07/28/2014 06/13/2014 echocardiogram. Essential hypertension, benign Hallux valgus (acquired) 12/20/2010 Menopause SHANNON (obstructive sleep apnea) 08/01/14 Severe. 08/01/14 [facility] PSG with AHI 29.4-30.5. Corrected with 16 cm CPA with humidification. Poor balance 03/03/2013 Post-menopausal 09/09/2011 Sciatica of left side 03/14/2014 Due to lumbar spondylosis/stenosis. Type II or unspecified type diabetes mellitus without mention of complication, not stated as uncontrolled Unspecified asthma(493.90) Current Outpatient Medications Medication Sig doxycycline hyclate (VIBRAMYCIN) 100 mg capsule Take 1 capsule (100 mg) by mouth two times a day. HYDROcodone-acetaminophen (NORCO) 5-325 mg per tablet Take 1 tablet by mouth three times a day as needed for pain. pregabalin (LYRICA) 75 mg capsule pioglitazone (ACTOS) 15 mg tablet omeprazole (PRILOSEC) 40 mg capsule Take 1 capsule by mouth once daily. isosorbide mononitrate ER (IMDUR) 30 mg 24 hr tablet hydroCHLOROthiazide 25 mg tablet furosemide (LASIX) 40 mg tablet Take 2 tablets by mouth every afternoon. ezetimibe (ZETIA) 10 mg tablet Take by mouth. amLODIPine (NORVASC) 5 mg tablet DULoxetine (CYMBALTA) 20 mg capsule Take 1 capsule by mouth once daily. traMADol (ULTRAM) 50 mg tablet Take 50 mg by mouth every 6 hours as needed for pain. (Patient not taking: Reported on 08/14/2023) meloxicam (MOBIC ORAL) Take by mouth. (Patient not taking: Reported on 07/28/2023) nystatin-triamcinolone (MYCOLOG) ointment Apply sparingly to perineum twice daily for irritation/infection. insulin 70/30 NPH/regular units/mL (NOVOLIN 70/30) 50 units sc at breakfast, 55 units at lunch, 82 units at supper. (Patient taking differently: 70/90 units depending on sugars) potassium chloride ER (K-DUR, KLOR-CON) 20 mEq tablet Take 1 tablet by mouth once daily. (Patient not taking: Reported on 07/28/2023) losartan (COZAAR) 100 mg tablet Take 1 tablet by mouth once daily. (Patient not taking: Reported on 07/28/2023) insulin needles, DISPOSABLE, (PEN NEEDLE) 31 X 08/06 [facility] [place] [place] Ndle use as directed ASPIRIN 81 MG [...] anxious. NVSI unchanged from previous visit. Dermatological: Surgical incision of left 2nd toe is nearly healed with exception to small 1 mm pinpoint opening. No signs of infection Surigcal incisions to 3rd and 5th toe have dry skin along periophery. No deep wounds noted. Prior ulceration of left 2nd and 5th toe are now healed without infection. ASSESSMENT: (M20.42) Hammertoe of left foot (primary encounter diagnosis) (L97.521) Ulcer of toe of left foot, limited to breakdown of skin (HCC) (T81.30XA) Wound dehiscence PLAN: Patient is s/p open tenotomy of left 2nd, 3rd and 5th toe. Her prior ulceration of left 2nd and left 5th toe are healed and remain healed. We discussed the future benefit this tenotomy should afford to hopefully prevent recurrent wounds. Still has some contracture to the 2nd toe and she knew this going into procedure that full deformity correction was not possible by tenotomy alone. The wound dehisscend of 2nd toe is making great improvement and is essentially healed with exception to a very small pinpoint opening. I debrided all nonviable tissue of the 2nd toe wound with tissue nippers. Total debridement was less than 1 mm. Will have her apply topical antibiotic cream to the 2nd toe. Patient will do this daily until the wound is healed. 3rd and 5th toe does have evidence of dryness. Will recommend she apply topical cream to the left foot and just a small amount to the plantar aspect of 3rd and 5th toe to help reduce dryness. She is to avoid excessive amounts as excessive creams may lead to maceration. I will have patient follow-up in 2 weeks. If she has any issues, she is to contact the office Patient is very happy with procedure outcome. Mercedes Gutierrez DPM AMB ROOMING INTAKE FLOWSHEET DATA Patient presents with: Left Foot - Established Patient, Post Op Cheyenne Sánchez LPN documented in this encounter [facility] 09-01-2023 Instructions Mercedes Gutierrez - 09/01/2023 1:53 PM EDT Your incisions appear to be healing nicely Would cleanse wounds of 2nd, 3rd and 5th toe with saline/guaze daily Place topical antibiotic on 2nd toe. Can apply small amount to 3rd and 5th toe as needed. Ok to wear surgical shoe or diabetic shoe Do not shower until completely healed Would make follow-up in 2 weeks Mercedes Gutierrez DPM documented in this encounter [facility] 09-01-2023 Note HNO ID: [id number] Author: CHEYENNE SÁNCHEZ LPN Service: ? Author Type: LICENSED NURSE Type: Progress Notes Filed: 09/02/2023 06:45 Note Text: AMB ROOMING INTAKE FLOWSHEET DATA Patient presents with: Left Foot - Established Patient, Post Op Cheyenne Sánchez LPN [facility] 08-29-2023 Telephone encounter Note Attempted to contact patient yesterday to see how she was doing. No answer. Left message for her to contact me should she have any issues Mercedes Gutierrez DPM [facility] 08-29-2023 Miscellaneous Notes Attempted to contact patient yesterday to see how she was doing. No answer. Left message for her to contact me should she have any issues Mercedes Gutierrez DPM documented in this encounter [facility] 08-21-2023 Note HNO ID: [id number] Author: MERCEDES GUTIERREZ, ? Service: ? Author Type: Physician Type: Progress Notes Filed: 08/23/2023 15:42 Note Text: FOLLOW UP PODIATRIC OFFICE VISIT Chief Complaint: This 73 year old who presents for follow up:left 2nd, left 3rd and left 5th flexor tenotomy. Patient presents to clinic for follow-up left 2nd, 3rd and 5th toe flexor tenotomy She had flexor tenotomy on august 06, 2023 for treatment of nonhealing ulceration of left 2nd toe. At time of surgery, she was found to have ulceration of left 5th toe. She elected to proceed with flexor tenotomy of left 2nd, 3rd and 5th toe. She is 10 days post-op. She is dressing the toes with betadine at site of prior ulceration and applying betadine and guaze to incision. She states she is trying to stay off her foot as much as possible. She has no pain. She has no other complaints. PAIN EVALUATION No data found in the last 1 encounters. Hemoglobin A1C Date Value Ref Range Status 01/21/2019 7.8 (H) 4.3 - 6.0 % Final PCP: Frederick Cervantes DO PAST MEDICAL HISTORY Diagnosis Date Diastolic dysfunction, left ventricle 07/28/2014 06/13/2014 echocardiogram. Essential hypertension, benign Hallux valgus (acquired) 12/20/2010 Menopause SHANNON (obstructive sleep apnea) 08/01/14 Severe. 08/01/14 [facility] PSG with AHI 29.4-30.5. Corrected with 16 cm CPA with humidification. Poor balance 03/03/2013 Post-menopausal 09/09/2011 Sciatica of left side 03/14/2014 Due to lumbar spondylosis/stenosis. Type II or unspecified type diabetes mellitus without mention of complication, not stated as uncontrolled Unspecified asthma(493.90) Current Outpatient Medications Medication Sig doxycycline hyclate (VIBRAMYCIN) 100 mg capsule Take 1 capsule (100 mg) by mouth two times a day. HYDROcodone-acetaminophen (NORCO) 5-325 mg per tablet Take 1 tablet by mouth three times a day as needed for pain. pregabalin (LYRICA) 75 mg capsule pioglitazone (ACTOS) 15 mg tablet omeprazole (PRILOSEC) 40 mg capsule Take 1 capsule by mouth once daily. isosorbide mononitrate ER (IMDUR) 30 mg 24 hr tablet hydroCHLOROthiazide 25 mg tablet furosemide (LASIX) 40 mg tablet Take 2 tablets by mouth every afternoon. ezetimibe (ZETIA) 10 mg tablet Take by mouth. amLODIPine (NORVASC) 5 mg tablet DULoxetine (CYMBALTA) 20 mg capsule Take 1 capsule by mouth once daily. insulin 70/30 NPH/regular units/mL (NOVOLIN 70/30) 50 units sc at breakfast, 55 units at lunch, 82 units at supper. (Patient taking differently: 70/90 units depending on sugars) insulin needles, DISPOSABLE, (PEN NEEDLE) 31 X 08/06 Misc Ndle use as directed ASPIRIN 81 MG TAB Take one (1) tablet daily . REQUIP 4 MG TAB Take 1 tablet at bedtime as needed doxycycline hyclate (VIBRAMYCIN) 100 mg capsule Take 1 capsule (100 mg) by mouth two times a day for 10 days. traMADol (ULTRAM) 50 mg tablet Take 50 mg by mouth every 6 hours as needed for pain. (Patient not taking: Reported on 08/14/2023) meloxicam (MOBIC ORAL) Take by mouth. (Patient not taking: Reported on 07/28/2023) nystatin-triamcinolone (MYCOLOG) ointment Apply sparingly to perineum twice daily for irritation/infection. potassium chloride ER (K-DUR, KLOR-CON) 20 mEq tablet Take 1 tablet by mouth once daily. (Patient not taking: Reported on 07/28/2023) losartan (COZAAR) 100 mg tablet Take 1 tablet by mouth once daily. (Patient not taking: Reported on 07/28/2023) No current facility-administered medications for this visit. [...] anxious. NVSI unchanged from previous visit. Dermatological: Nails 1-5 b/l are normal. Webspaces clean and dry 1-4 b/l. Skin appears well hydrated and supple. good color, texture, turgor. No open lesions present. No callosities present. Musculoskeletal/Orthopaedic: Patient has no pain to palpation of left 2nd, 3rd and (more content not included)... [facility] 08-21-2023 History of Presen t illness Narrative FOLLOW UP PODIATRIC OFFICE VISIT Chief Complaint: This 73 year old who presents for follow up:left 2nd, left 3rd and left 5th flexor tenotomy. Patient presents to clinic for follow-up left 2nd, 3rd and 5th toe flexor tenotomy She had flexor tenotomy on august 06, 2023 for treatment of nonhealing ulceration of left 2nd toe. At time of surgery, she was found to have ulceration of left 5th toe. She elected to proceed with flexor tenotomy of left 2nd, 3rd and 5th toe. She is 10 days post-op. She is dressing the toes with betadine at site of prior ulceration and applying betadine and guaze to incision. She states she is trying to stay off her foot as much as possible. She has no pain. She has no other complaints. PAIN EVALUATION No data found in the last 1 encounters. Hemoglobin A1C Date Value Ref Range Status 01/21/2019 7.8 (H) 4.3 - 6.0 % Final PCP: Frederick Cervantes DO PAST MEDICAL HISTORY Diagnosis Date Diastolic dysfunction, left ventricle 07/28/2014 06/13/2014 echocardiogram. Essential hypertension, benign Hallux valgus (acquired) 12/20/2010 Menopause SHANNON (obstructive sleep apnea) 08/01/14 Severe. 08/01/14 [facility] PSG with AHI 29.4-30.5. Corrected with 16 cm CPA with humidification. Poor balance 03/03/2013 Post-menopausal 09/09/2011 Sciatica of left side 03/14/2014 Due to lumbar spondylosis/stenosis. Type II or unspecified type diabetes mellitus without mention of complication, not stated as uncontrolled Unspecified asthma(493.90) Current Outpatient Medications Medication Sig doxycycline hyclate (VIBRAMYCIN) 100 mg capsule Take 1 capsule (100 mg) by mouth two times a day. HYDROcodone-acetaminophen (NORCO) 5-325 mg per tablet Take 1 tablet by mouth three times a day as needed for pain. pregabalin (LYRICA) 75 mg capsule pioglitazone (ACTOS) 15 mg tablet omeprazole (PRILOSEC) 40 mg capsule Take 1 capsule by mouth once daily. isosorbide mononitrate ER (IMDUR) 30 mg 24 hr tablet hydroCHLOROthiazide 25 mg tablet furosemide (LASIX) 40 mg tablet Take 2 tablets by mouth every afternoon. ezetimibe (ZETIA) 10 mg tablet Take by mouth. amLODIPine (NORVASC) 5 mg tablet DULoxetine (CYMBALTA) 20 mg capsule Take 1 capsule by mouth once daily. insulin 70/30 NPH/regular units/mL (NOVOLIN 70/30) 50 units sc at breakfast, 55 units at lunch, 82 units at supper. (Patient taking differently: 70/90 units depending on sugars) insulin needles, DISPOSABLE, (PEN NEEDLE) 31 X 08/06 [facility] [place], [place] Ndle use as directed ASPIRIN 81 MG TAB Take one (1) tablet daily . REQUIP 4 MG TAB Take 1 tablet at bedtime as needed doxycycline hyclate (VIBRAMYCIN) 100 mg capsule Take 1 capsule (100 mg) by mouth two times a day for 10 days. traMADol (ULTRAM) 50 mg tablet Take 50 mg by mouth every 6 hours as needed for pain. (Patient not taking: Reported on 08/14/2023) meloxicam (MOBIC ORAL) Take by mouth. (Patient not taking: Reported on 07/28/2023) nystatin-triamcinolone (MYCOLOG) ointment Apply sparingly to perineum twice daily for irritation/infection. potassium chloride ER (K-DUR, KLOR-CON) 20 mEq tablet Take 1 tablet by mouth once daily. (Patient not taking: Reported on 07/28/2023) losartan (COZAAR) 100 mg tablet Take 1 tablet by mouth once daily. (Patient not taking: Reported on 07/28/2023) No current facility-administered medications for this visit. [...] anxious. NVSI unchanged from previous visit. Dermatological: Nails 1-5 b/l are normal. Webspaces clean and dry 1-4 b/l. Skin appears well hydrated and supple. good color, texture, turgor. No open lesions present. No callosities present. Musculoskeletal/Orthopaedic: Patient has no pain to palpation of left 2nd, 3rd and 5th toe Left 2nd, 3rd and 5th toe are less contracted No calf pain appreciated to left lower extremity. ASSESSMENT: (M20.42) Hammertoe of left foot (primary encounter diagnosis) (L97.521) Ulcer of toe of left foot, limited to breakdown of skin ([facility]) (T81.31XA) Postoperative wound dehiscence, initial encounter PLAN: Patient was examined today and we discussed the appearance of left foot. She is 10 days post-op from flexor tenotomy of left 2nd, 3rd and 5th toe. Her toes appear less contracted than they did prior to procedure. Prior ulceration of left 2nd and left 5th toe that were present on day of surgery are now successfully healed without infection. Her surgical incision of left 3rd and 5th toe appear to be healing nicely witjhout infection. I did remove 2 suture of the left 3rd toe and one suture of left 5th toe. I elected to leave the remaining suture of these toes intact as the incision is not fully healed. I removed the suture noted above as her skin is very thin and the knot from the suture at the involved location combined with thin skin and swelling was placing pressure on skin lead to pressure irritation. I will leave the remaining suture intact until this provider returns from a planned vacation in 1.5 weeks. If she has any issues, she has my personal number to contact me. I discussed the appearance of left 2nd toe. The left 2nd toe was very macerated and the suture was found to have skin growing over the suture. I felt the moisture of the left 2nd toe combined with the very thin appearance to skin, I felt that the suture would lead to further tearing of the skin. I had long discussion with patient and we discussed removal of the suture. Upon removal of all suture to left 2nd toe, the toe was found to be very macerated and the central incision was dehisced down to tendon although tendon is not visualized due to prior tenotomy. The dehiscence is just under 2 mm in length. I discussed this dehiscence with patient. I am going to have her treat the toe daily with betadine to help reduce maceration and I will have her apply aquacel to the wound dehiscence. I informed her that due to the appearance of skin, I feel that placing suture in the toe will likely lead to further tearing of the skin. She understands this and will treat the wound with aquacel. Will try to allow this wound to heal by secondary intention. I reminded patient the risk of this procedure given the thin nature of the skin. We discussd that the tenotomy did help to heal the ulceration. We just need to get the wound dehiscence to heal and I suspect if this happens, she will be fine. I will place her on doxycycline 100 mg po bid x 10 days. I did inform patient that having this wound dehiscence in close proximity to bone does place her at risk of infection and at risk of amputation. She understands this risk. She states she had similar issue with the 4th toe and healed up nicely with amputation. She states if it happens to require amputation, she would be ok wit this. In event amputation was required, we discussed all toe amputation vs just the 2nd toe. She figures she would only go for the 2nd toe. Patient is going to perform local wound care to the left 2nd toe to include betadine and aquacel. The left 3rd and left 5th toe can be treated with betadine. All prior ulcerations are now healed. Patient will contact the office if she has any issues. Baseline follow-up xray ordered. Mercedes Gutierrez DPM Patient presents with: Left Foot - Established Patient, Follow Up, Post Op Patient presents for 10 day post op hammer toe repair to left foot. Patient has been applying betadine to surgical site, using adaptic, lambs wool, and gauze wrap. Securing with nga wrap and wearing post op shoe. Patient states that she has been trying to stay off her feet and elevate them. documented in this encounter [facility] 08-21-2023 Instructions Mercedes Gutierrez - 08/21/2023 2:30 PM EDT Apply betadine to left 2nd, 3rd and 5th toe incision daily Apply aquacel to the bottom of left 2nd toe Secure with guaze Take antibiotic as prescribed If you develop any redness, drainage, odor, present to the hospital If you have any questions, please contact dr gutierrez at [phone] you on doxycycline. Be careful with sun exposure. F/u in 1 week documented in this encounter [facility] 08-21-2023 Note HNO ID: [id number] Author: ALICIA JARA, RN Service: ? Author Type: Registered Nurse Type: Progress Notes Filed: 08/23/2023 15:42 Note Text: Patient presents with: Left Foot - Established Patient, Follow Up, Post Op Patient presents for 10 day post op hammer toe repair to left foot. Patient has been applying betadine to surgical site, using adaptic, lambs wool, and gauze wrap. Securing with nga wrap and wearing post op shoe. Patient states that she has been trying to stay off her feet and elevate them. [facility] 08-16-2023 Note HNO ID: [id number] Author: MERCEDES GUTIERREZ, ? Service: ? Author Type: Physician Type: Progress Notes Filed: 08/16/2023 08:20 Note Text: FOLLOW UP PODIATRIC OFFICE VISIT Chief Complaint: This 73 year old who presents for follow up:flexor tenotomy of left 2nd, 3rd and 5th toe. Patient presents to clinic for follow-up flexor tenotomy of left 2nd, 3rd and 5th toe Patient has no pain. Is currently taking cipro for presumed urinary tract infection and taking augmentin. Is currently applying betadine to incision and to wound of left 2nd and left 5th toe No other complaints. PAIN EVALUATION No data found in the last 1 encounters. Hemoglobin A1C Date Value Ref Range Status 01/21/2019 7.8 (H) 4.3 - 6.0 % Final PCP: Frederick Cervantes DO PAST MEDICAL HISTORY Diagnosis Date Diastolic dysfunction, left ventricle 07/28/2014 06/13/2014 echocardiogram. Essential hypertension, benign Hallux valgus (acquired) 12/20/2010 Menopause SHANNON (obstructive sleep apnea) 08/01/14 Severe. 08/01/14 [facility] PSG with AHI 29.4-30.5. Corrected with 16 cm CPA with humidification. Poor balance 03/03/2013 Post-menopausal 09/09/2011 Sciatica of left side 03/14/2014 Due to lumbar spondylosis/stenosis. Type II or unspecified type diabetes mellitus without mention of complication, not stated as uncontrolled Unspecified asthma(493.90) Current Outpatient Medications Medication Sig doxycycline hyclate (VIBRAMYCIN) 100 mg capsule Take 1 capsule (100 mg) by mouth two times a day. HYDROcodone-acetaminophen (NORCO) 5-325 mg per tablet Take 1 tablet by mouth three times a day as needed for pain. ciprofloxacin HCl (CIPRO) 500 mg tablet Take 1 tablet by mouth two times a day for 7 days. FOR 7 DAYS. amoxicillin-clavulanate potassium (AUGMENTIN) 875-125 mg per tablet Take 1 tablet by mouth two times a day for 7 days. FOR 7 DAYS. pregabalin (LYRICA) 75 mg capsule pioglitazone (ACTOS) 15 mg tablet omeprazole (PRILOSEC) 40 mg capsule Take 1 capsule by mouth once daily. isosorbide mononitrate ER (IMDUR) 30 mg 24 hr tablet hydroCHLOROthiazide 25 mg tablet furosemide (LASIX) 40 mg tablet Take 2 tablets by mouth every afternoon. ezetimibe (ZETIA) 10 mg tablet Take by mouth. amLODIPine (NORVASC) 5 mg tablet DULoxetine (CYMBALTA) 20 mg capsule Take 1 capsule by mouth once daily. insulin 70/30 NPH/regular units/mL (NOVOLIN 70/30) 50 units sc at breakfast, 55 units at lunch, 82 units at supper. (Patient taking differently: 70/90 units depending on sugars) insulin needles, DISPOSABLE, (PEN NEEDLE) 31 X 08/06 Misc Ndle use as directed ASPIRIN 81 MG TAB Take one (1) tablet daily . REQUIP 4 MG TAB Take 1 tablet at bedtime as needed traMADol (ULTRAM) 50 mg tablet Take 50 mg by mouth every 6 hours as needed for pain. (Patient not taking: Reported on 08/14/2023) meloxicam (MOBIC ORAL) Take by mouth. (Patient not taking: Reported on 07/28/2023) nystatin-triamcinolone (MYCOLOG) ointment Apply sparingly to perineum twice daily for irritation/infection. potassium chloride ER (K-DUR, KLOR-CON) 20 mEq tablet Take 1 tablet by mouth once daily. (Patient not taking: Reported on 07/28/2023) losartan (COZAAR) 100 mg tablet Take 1 tablet by mouth once daily. (Patient not taking: Reported on 07/28/2023) No current facility-administered medications for this visit. [...] anxious. NVSI unchanged from previous visit. Dermatological: Surgical incision is approximated to left 2nd, 3rd and 5th toe. No evidence of dehisence. Slight maceration is noted Left 2nd toe wound is nearly healed Left 5th toe wound is healing nicely. No redness or drainage. No local signs of infection. Musculoskeletal/Orthopaedic: Patient has no pain to palpation of left foot No calf pain ASSESSMENT: (M20.42) Hammertoe of left foot (primary encounter diag (more content not included)... [facility] 08-16-2023 History of Presen t illness Narrative FOLLOW UP PODIATRIC OFFICE VISIT Chief Complaint: This 73 year old who presents for follow up:flexor tenotomy of left 2nd, 3rd and 5th toe. Patient presents to clinic for follow-up flexor tenotomy of left 2nd, 3rd and 5th toe Patient has no pain. Is currently taking cipro for presumed urinary tract infection and taking augmentin. Is currently applying betadine to incision and to wound of left 2nd and left 5th toe No other complaints. PAIN EVALUATION No data found in the last 1 encounters. Hemoglobin A1C Date Value Ref Range Status 01/21/2019 7.8 (H) 4.3 - 6.0 % Final PCP: Frederick Cervantes DO PAST MEDICAL HISTORY Diagnosis Date Diastolic dysfunction, left ventricle 07/28/2014 06/13/2014 echocardiogram. Essential hypertension, benign Hallux valgus (acquired) 12/20/2010 Menopause SHANNON (obstructive sleep apnea) 08/01/14 Severe. 08/01/14 [facility] PSG with AHI 29.4-30.5. Corrected with 16 cm CPA with humidification. Poor balance 03/03/2013 Post-menopausal 09/09/2011 Sciatica of left side 03/14/2014 Due to lumbar spondylosis/stenosis. Type II or unspecified type diabetes mellitus without mention of complication, not stated as uncontrolled Unspecified asthma(493.90) Current Outpatient Medications Medication Sig doxycycline hyclate (VIBRAMYCIN) 100 mg capsule Take 1 capsule (100 mg) by mouth two times a day. HYDROcodone-acetaminophen (NORCO) 5-325 mg per tablet Take 1 tablet by mouth three times a day as needed for pain. ciprofloxacin HCl (CIPRO) 500 mg tablet Take 1 tablet by mouth two times a day for 7 days. FOR 7 DAYS. amoxicillin-clavulanate potassium (AUGMENTIN) 875-125 mg per tablet Take 1 tablet by mouth two times a day for 7 days. FOR 7 DAYS. pregabalin (LYRICA) 75 mg capsule pioglitazone (ACTOS) 15 mg tablet omeprazole (PRILOSEC) 40 mg capsule Take 1 capsule by mouth once daily. isosorbide mononitrate ER (IMDUR) 30 mg 24 hr tablet hydroCHLOROthiazide 25 mg tablet furosemide (LASIX) 40 mg tablet Take 2 tablets by mouth every afternoon. ezetimibe (ZETIA) 10 mg tablet Take by mouth. amLODIPine (NORVASC) 5 mg tablet DULoxetine (CYMBALTA) 20 mg capsule Take 1 capsule by mouth once daily. insulin 70/30 NPH/regular units/mL (NOVOLIN 70/30) 50 units sc at breakfast, 55 units at lunch, 82 units at supper. (Patient taking differently: 70/90 units depending on sugars) insulin needles, DISPOSABLE, (PEN NEEDLE) 31 X 08/06 Misc Ndle use as directed ASPIRIN 81 MG TAB Take one (1) tablet daily . REQUIP 4 MG TAB Take 1 tablet at bedtime as needed traMADol (ULTRAM) 50 mg tablet Take 50 mg by mouth every 6 hours as needed for pain. (Patient not taking: Reported on 08/14/2023) meloxicam (MOBIC ORAL) Take by mouth. (Patient not taking: Reported on 07/28/2023) nystatin-triamcinolone (MYCOLOG) ointment Apply sparingly to perineum twice daily for irritation/infection. potassium chloride ER (K-DUR, KLOR-CON) 20 mEq tablet Take 1 tablet by mouth once daily. (Patient not taking: Reported on 07/28/2023) losartan (COZAAR) 100 mg tablet Take 1 tablet by mouth once daily. (Patient not taking: Reported on 07/28/2023) No current facility-administered medications for this visit. [...] anxious. NVSI unchanged from previous visit. Dermatological: Surgical incision is approximated to left 2nd, 3rd and 5th toe. No evidence of dehisence. Slight maceration is noted Left 2nd toe wound is nearly healed Left 5th toe wound is healing nicely. No redness or drainage. No local signs of infection. Musculoskeletal/Orthopaedic: Patient has no pain to palpation of left foot No calf pain ASSESSMENT: (M20.42) Hammertoe of left foot (primary encounter diagnosis) (L97.521) Ulcer of toe of left foot, limited to breakdown of skin (HCC) PLAN: Discussed appearance of left 2nd, 3rd and 5th toe. Incisions are approximated nicely without dehiscence. Slight maceration. Continue with betadine Wounds are healing nicely to 2nd and 5th toe s/p tenotomy. Continue with betadine Wound culture does show mrsa of left 5th toe. Doxycycline was called in this morning. Urin culture with no growth. Continue with cipro until complete. Defer to pcp Continue with aspirin for dvt prophylaxis F/u in 1 week Call if any issues arise. Mercedes Gutierrez DPM AMB ROOMING INTAKE FLOWSHEET DATA Patient presents with: Left Foot - Established Patient, Post Op, Diabetic Foot Ulcer Patient present to office 3 days s/p Open tenotomy, left second, third and fifth toe Cheyenne Sánchez LPN documented in this encounter [facility] 08-14-2023 Instructions Mercedes Gutierrez - 08/14/2023 1:37 PM EDT Your incisions look to be healing nicely Slightly macerated (moist) Apply guaze between toes or lambs wool Apply betadine to incision You did have mrsa from the fifth toe. Take doxycycline 100 mg twice daily Follow-up in one week Can stop the augmetin documented in this encounter [facility] 08-14-2023 Note HNO ID: [id number] Author: CHEYENNE SÁNCHEZ LPN Service: ? Author Type: LICENSED NURSE Type: Progress Notes Filed: 08/16/2023 08:20 Note Text: AMB ROOMING INTAKE FLOWSHEET DATA Patient presents with: Left Foot - Established Patient, Post Op, Diabetic Foot Ulcer Patient present to office 3 days s/p Open tenotomy, left second, third and fifth toe Cheyenne Sánchez LPN [facility] 08-11-2023 Note HNO ID: [id number] Author: HEATHER SKINNER RN Service: Nursing Author Type: Registered Nurse Type: Nursing Progress Note Filed: 08/11/2023 11:09 Note Text: Other: post op shoe applied as per MD orders. [facility] 08-11-2023 Note HNO ID: [id number] Author: HEATHER SKINNER RN Service: Nursing Author Type: Registered Nurse Type: Nursing Progress Note Filed: 08/11/2023 07:20 Note Text: Other: at bedside talking with pt.. [facility] 07-28-2023 Instructions Jennifer Pond PA-C - 07/28/2023 2:13 PM EDT PATIENT PREOPERATIVE INSTRUCTIONS Mercedes Gutierrez DPM has scheduled you for your procedure at this surgery center: [facility]: [phone] -- [address] [address]. Please read below carefully for your personalized instructions. Arrival Time for Surgery: - The Surgery Center or hospital where you are having surgery will call the afternoon before surgery (or Friday for Friday surgery) with a scheduled arrival time. - If you have not heard by 4 pm, please contact the surgery center above. Please be aware that emergency situations arise, which may delay or change your surgical time. If this happens, we will notify you as soon as possible and regret any inconvenience. Dietary Restrictions: - No solid food after midnight. - You may have 12 ounces of clear liquids (water, clear juices such as apple juice or gatorade, carbonated beverages, clear tea, black coffee, jello) until 2 hours before scheduled arrival at facility. - Do not drink any alcohol after midnight the night before your surgery. Medications: Unless instructed differently below, stay on all of your medications until your surgery. If you start any new medications after today's visit, please contact your surgeon. Pre-Surgery Med Instructions Medication Instructions pregabalin (LYRICA) 75 mg capsule Take the day of surgery with a small sip of water omeprazole (PRILOSEC) 40 mg capsule Take the day of surgery with a small sip of water isosorbide mononitrate ER (IMDUR) 30 mg 24 hr tablet Take the day of surgery with a small sip of water ezetimibe (ZETIA) 10 mg tablet Do not take the day of surgery amLODIPine (NORVASC) 5 mg tablet Take the day of surgery with a small sip of water DULoxetine (CYMBALTA) 20 mg capsule Take the day of surgery with a small sip of water insulin 70/30 NPH/regular units/mL (NOVOLIN 70/30) Do not take the day of surgery ASPIRIN 81 MG TAB Stop 7 days before surgery REQUIP 4 MG TAB Ok to use night before surgery, do not take morning of surgery. OK TO TAKE YOUR TRAMADOL UP TO AND DAY OF SURGERY NEEDED. If you get home and notice you are taking ANY OTHER MEDICATIONS, please call to let us know at [phone]. You may give your medication list to one of our nurses and I will get back to you on what to do with the medications day of surgery. If you start any new medications after today's visit, please contact the surgeon's office. Blood Thinning Medications: - Stop NSAIDS (Ibuprofen, Advil, Aleve, Motrin, Celebrex, Mobic, etc.) 7 days before surgery, as directed by your surgeon. - Stop Aspirin 7 days before surgery, as directed by your surgeon. - Stop Vitamin E, ALL multi-vitamins, herbals and dietary supplements 14 days before surgery. - You may take Tylenol (Acetaminophen) or any of your pain medications that do not contain aspirin or NSAIDS as needed. Important Reminders: - If you use CPAP/BIPAP, bring the machine with you to the surgery center. - If you are prescribed inhalers or nebulizer treatments for breathing, continue using them. - Candy, mints, and tobacco products are NOT permitted the morning of surgery. - Hearing aids, dentures and glasses may be worn the morning of surgery. - NO jewelry, body piercings, makeup, hairpins or contacts are to be worn the day of surgery. If you develop symptoms such as a fever, cold, or flu, or have other changes to your health within TWO DAYS of scheduled surgery or the morning of surgery, please contact the surgery center above. Personal Belongings: -Please have photo ID and insurance cards. -If you do not have a copy of advance directives on file with us, please bring a copy with you on the day of surgery. - Leave ALL valuables and money at home or with family members. For Outpatient Procedures: - YOU MUST HAVE A RESPONSIBLE GENERAL MAINTENANCE ENGINEER TAKE YOU HOME. A SUPERVISOR TOY PARTS FORMER OR CAN DRAGGER CANNOT BE MADE A RESPONSIBLE GENERAL MAINTENANCE ENGINEER. - We recommend that a responsible person stays with you overnight to take care of you. - You cannot stay in a hotel alone after outpatient surgery. You will not be permitted to have your surgery, if you do not have someone to take care of you. If you already have an Advance Directive, please fax a copy to [phone] or email to for it to be added to your chart. If you do not have an Advance Directive, you can find the appropriate form and more information at [email or web address]. We recommend that you complete the Advance Directive form found on the website and bring it with you the day of your surgery. It can be witnessed and scanned into your chart that day. Jennifer Pond PA-C documented in this encounter [facility] 07-28-2023 History and physical note HISTORY AND PHYSICAL EXAMINATION SERVICE DATE: 07/28/2023 SERVICE TIME: 2:34 PM PRIMARY CARE PHYSICIAN: Frederick Cervantes DO REASON FOR VISIT: Wilda White is a 73 year old female who is scheduled for Procedure(s): TENOTOMY FOOT FLEXOR, OPEN (Left) at the request of Dr. eMrcedes Gutierrez for consultation. My final recommendation will be communicated back to the requesting physician by way of shared medical record or letter. Subjective The patient has the following: ACTIVE PROBLEM LIST Type 2 Diabetes Mellitus With Diabetic Polyneuropathy, With Long-Term Current Use of Insulin (Hcc) Painful Diabetic Neuropathy (Hcc) Asthma Hypertension Restless Leg Syndrome Vitamin D Deficiency Hyperlipidemia Morbid Obesity (Hcc) Obstructive Sleep Apnea Diastolic Dysfunction, Left Ventricle History of Pulmonary Embolus (Pe) Gastroesophageal Reflux Disease Chronic Pulmonary Embolism (Hcc) Chronic Back Pain Cervical Myelopathy (Hcc) Stage 3b Chronic Kidney Disease (Hcc) Coronary Artery Disease of [place] Artery of [place] Heart With Stable Angina Pectoris (Hcc) COVID-19 Immunization Status Overdue - Covid-19 Vaccine (2022- season) Overdue since 11/22/2022 08/31/2021 Imm Admin: COVID-19 original vaccine, age 12+ yr, monovalent (PFIZER-BIONTECH - ESCOBAR TOP) 04/03/2021 Imm Admin: COVID-19 original vaccine, age 12+ yr, monovalent (PFIZER-BIONTECH - PURPLE TOP) 07/02/2020 Imm Admin: COVID-19 original vaccine, age 12+ yr, monovalent (PFIZER-BIONTECH - PURPLE TOP) Only the first 3 history entries have been loaded, but more history exists. CHIEF COMPLAINT: pre op HPI: Wilda White is a 73 year old female presenting for pre-anesthesia consultation. Pt has history of left foot hammer toe. Above procedure recommended to manage symptoms. Procedure scheduled on 08/11/2023 at [facility]. REVIEW OF SYSTEMS: General: No weight loss, malaise or fevers. Neurological: Positive for: peripheral neuropathy. Negative for: headaches, seizures, TIA and strokes. Respiratory: Positive for: asthma (Rescue inhaler), obstructive sleep apnea and CPAP/BiPAP compliant. Negative for: COPD, current cough, dyspnea, home oxygen, tobacco use and URI < 2 weeks. Cardiovascular: Denies dizziness or syncope. Positive for: CHF, DVT/PE, hyperlipidemia and hypertension Negative for: AICD/PPM, arrhythmia, CAD, chest pain, recent ND, murmur/valvular heart disease, open heart surgery and valve surgery. GI: Positive for: GERD Negative for: abdominal pain, GI bleed <30 days, hepatitis, liver disease, nausea and vomiting. : Denies kidney disease Negative for: dysuria, frequent urination, hematuria and urinary tract infection. Endocrine: Positive for: diabetes mellitus (Cortisone shot recently). Negative for: hyperthyroidism and hypothyroidism. Hematology: Negative for: anemia, bruises/bleeds easily, factor V Leiden, hemophilia, thrombocytopenia and von Willebrand disease. Oncology: No history of CA metastasis, chemo within 30 days, or radiotherapy within 90 days. No history of oncological symptoms or problems. Psych: Negative for: anxiety, bipolar disorder and depression. Musculoskeletal: See HPI. Skin: Negative for lesions, rash and itching. PAST MEDICAL HISTORY Diagnosis Date Diastolic dysfunction, left ventricle 07/28/2014 06/13/2014 echocardiogram. Essential hypertension, benign Hallux valgus (acquired) 12/20/2010 Menopause SHANNON (obstructive sleep apnea) 08/01/14 Severe. 08/01/14 [facility] PSG with AHI 29.4-30.5. Corrected with 16 [...] Detached Retina Sister Diabetes Sister Hypertension Brother Anesthesia Problems No Family History Social History Tobacco Use Smoking status: Former [...] use: Yes Comment: Occasional. Drug use: No Prior to Admission medications as of 07/29/23 1434 Medication Sig Last Dose Taking pregabalin (LYRICA) 75 mg capsule Yes omeprazole (PRILOSEC) 40 mg capsule Take 1 capsule by mouth once daily. Yes isosorbide mononitrate ER (IMDUR) 30 mg 24 hr tablet Yes ezetimibe (ZETIA) 10 mg tablet Take by mouth. Yes amLODIPine (NORVASC) 5 mg tablet Yes DULoxetine (CYMBALTA) 20 mg capsule Take 1 capsule by mouth once daily. Yes insulin 70/30 NPH/regular units/mL (NOVOLIN 70/30) 50 units sc at breakfast, 55 units at lunch, 82 units at supper. Patient taking differently: 70/90 units depending on sugars Taking Yes insulin needles, DISPOSABLE, (PEN NEEDLE) 31 X 16 [facility] [place], [place] Ndle use as directed Taking Yes ASPIRIN 81 MG TAB Take one (1) tablet daily . Taking Yes REQUIP 4 MG TAB Take 1 tablet at bedtime as needed Taking Yes pioglitazone (ACTOS) 15 mg tablet hydroCHLOROthiazide 25 mg tablet furosemide (LASIX) 40 mg tablet Take 2 tablets by mouth every afternoon. traMADol (ULTRAM) 50 mg tablet Take 50 mg by mouth every 6 hours as needed for pain. meloxicam (MOBIC ORAL) Take by mouth. Patient not taking: Reported on 07/28/2023 Not Taking nystatin-triamcinolone (MYCOLOG) ointment Apply sparingly to perineum twice daily for irritation/infection. potassium chloride ER (K-DUR, KLOR-CON) 20 mEq tablet Take 1 tablet by mouth once daily. Patient not taking: Reported on 07/28/2023 Not Taking losartan (COZAAR) 100 mg tablet Take 1 tablet by mouth once daily. Patient not taking: Reported on 07/28/2023 Not Taking Medication Comments documented by Srinivas Carrera on 07/19/2014 at 0926. ALLERGIES Allergen Reactions Ambien [Zolpidem Ta* Other: See Comments Sleep walking Cats Itching, Shortness of Breath, Other: See Comments Stuffy nose, itching in mouth Codeine Itching Dogs Itching, Shortness of Breath, Other: See Comments Stuffy nose, itching in mouth Latex Rash, Itching Pravastatin Myalgia Seasonal Allergies Itching, Other: See Comments Runny nose/eyes, sneezing Objective PHYSICAL EXAM: General: alert and oriented, healthy appearance and morbidly obese. Pertinent negatives noted - not distressed. Skin: normal color, no rash or lesions. HEENT: EOM intact, pupils equal round and pupils reactive to light. Pertinent negatives noted - no carotid bruit. Cardiovascular: regular rate and rhythm, normal S1 and S2, no rub, murmurs, or gallop. No radial pulse abnormalities. Respiratory: normal breath sounds, no wheezes or crackles. No chest wall deformity or tenderness. Abdomen: soft. Pertinent negatives noted - not tender. Extremities: Positive for edema and joint tenderness. Pertinent negatives noted - no cellulitis, no clubbing, no deformity, no joint swelling, no abnormal pulses, no ulcer, no vascular insufficiency and no varicose veins. B/L LE EDEMA, wearing compression socks. Neurological: normal cognition and motor skills. Gait not observed, in wheelchair d/t foot pain.. PAIN ASSESSMENT: VITALS: BP 102/60 Pulse 86 Temp (Src) 97.1 (Temporal) Resp 14 Ht 5' 4 (1.63m) Wt 259 lb (117.5kg) SpO2 95% BMI 44.44 kg/(m^2). Diagnostic tests reviewed for today's visit: Lab Value Units Date High Low HB No results within date range. HCT No results within date range. WBC No results within date range. PLT No results within date range. NA No results within date range. K No results within date range. GLUC No results within date range. BUN No results within date range. CREAT No results within date range. PTSEC No results within date range. INR No results within date range. APTT No results within date range. ALT No results within date range. AST No results within date range. TBILI No results within date range. TSH No results within date range. Lab Value Units Date High Low HCGQT No results within date range. UHCG No results within date range. HCG, BODY* No results within date range. Lab Value Units Date High Low ABORHD No results within date range. ABSCREEN No results within date range. Hemoglobin A1C (%) Date Value 01/21/2019 7.8 12/10/2018 8.2 12/07/2018 8.3 10/29/2018 8.8 08/10/2018 7.4 No results found for this or any previous visit (from the past 8760 hour(s)). No results found for this or any previous visit (from the past 70232 hour(s)). Assessment Patient has the following medical conditions which may affect jennyfer-operative course: Type 2 diabetes mellitus with diabetic polyneuropathy, with long-term current use of insulin (HCC) Assessment: IDDM, Follows with PCP. Poor control, but better than in the past. Reports that her fasting blood glucose is sometimes in the 200's - at its highest, it has gone up to 300. Most recent A1C 04/05/2022 - 8.7% Hemoglobin (G/DL) Date Value 02/14/2019 10.4 02/13/2019 10.7 02/12/2019 10.3 Diastolic dysfunction, left ventricle Assessment: Follows cardiology. Not taking all of her medications consistently. Appears euvolemic (chronic LE pitting edema, wearing compression socks today, pt reports LE are less swollen than normal today), denies new or worsening cardiac symptoms. Last cardiology follow up was 02/11/23 (Meg Stephens NP) Echocardiogram done locally ([facility]) on 07/16/22 - report uploaded to scanned docs EF 60%, no evidence for diastolic dysfunction. Aortic sclerosis, no stenosis. Hyperlipidemia Assessment: Taking ezetimibe daily. Hypertension Assessment: Follows with PCP, adherent to RX. In office today BP: 102/60 Asthma Assessment: Asthma with COPD overlap. Denies recent issues. Has albuterol inhaler or nebulizer for emergencies. Not using daily. Obstructive sleep apnea Assessment: SHANNON adherent to CPAP use. Gastroesophageal reflux disease Assessment: On PPI. Denies symptoms. Stage 3b chronic kidney disease (HCC) Assessment: Follows with PCP. Labs 07/04/2023 BUN: 15 Creatinine: 1.52 GFR: 36 History of pulmonary embolus (PE) Assessment: No longer on DOAC. Takes daily ASA. Coronary artery disease of [place] artery of [place] heart with stable angina pectoris (HCC) Assessment: Non-obstructive CAD, Follows with [facility]. Denies chest pain. Taking Zetia, ASA, Imdur. Not on BB. Morbid obesity (HCC) Assessment: Body mass index is 44.46 kg/m . Melvin Activity Status Index: METS: Do light work around the house, such as dusting or washing dishes (2.70 METs) DASI Score: 2.7 Patient denies any chest pain or undue shortness of breath with the above physical activity. [id number] Score: Age: 65-74 Sex: female CHF history: Yes Hypertension history: Yes Stroke/TIA/thromboembolism history: No Vascular disease history: Yes Diabetes history: Yes [id number] Score: 6 ANESTHESIA FINDINGS: Intubation History: Significant Anesthesia Considerations: Airway History: I - PHYSICAL EVALUATION AIRWAY Patient intubated: No. Tracheostomy tube not present Mallampati: IV. TM distance: >3 FB. Neck ROM: full ROM without neurological symptoms. Mouth opening: adequate. Short neck: no. Thick neck: no Lip Bite Test: II Microretrognathia/Micronagthia/R ecessed Chin: No DENTAL Dentures, upper: complete. Dentures, lower: complete. II - ANESTHESIA PLAN Anesthetic Plan: other Anesthetic plan additional comments: *PACC/TCI - anesthesia choice. Beta Yonny Monitoring Plan Post Procedure Analgesic Plan Prepared for Surgery: optimally prepared for surgery. - Labs completed at [facility] on 06/04/23 CBC with diff; 07/04/23, BMP uploaded into scanned docs. HgBA1C from 05/2022 uploaded to scanned docs as well. CONSULTS: Planned Anesthetic: other anesthesia choice The Following Tests/Procedures Have Been Initiated: Orders Placed This Encounter pregabalin (LYRICA) 75 mg capsule pioglitazone (ACTOS) 15 mg tablet omeprazole (PRILOSEC) 40 mg capsule Sig: Take 1 capsule by mouth once daily. isosorbide mononitrate ER (IMDUR) 30 mg 24 hr tablet hydroCHLOROthiazide 25 mg tablet furosemide (LASIX) 40 mg tablet Sig: Take 2 tablets by mouth every afternoon. ezetimibe (ZETIA) 10 mg tablet Sig: Take by mouth. amLODIPine (NORVASC) 5 mg tablet DULoxetine (CYMBALTA) 20 mg capsule Sig: Take 1 capsule by mouth once daily. traMADol (ULTRAM) 50 mg tablet Sig: Take 50 mg by mouth every 6 hours as needed for pain. Instructions Given to Patient: Instructions located in the after visit summary. Patient given verbal and written preop instructions and voices comprehension and compliance. SIGNATURE: Jennifer Pond PA-C PATIENT NAME: Wilda White DATE: 07/28/2023 TIME: 2:34 PM PAGER/CONTACT #: [facility] 07-28-2023 History and physical note HISTORY AND PHYSICAL EXAMINATION SERVICE DATE: 07/28/2023 SERVICE TIME: 2:34 PM PRIMARY CARE PHYSICIAN: Frederick Cervantes DO REASON FOR VISIT: Wilda White is a 73 year old female who is scheduled for Procedure(s): TENOTOMY FOOT FLEXOR, OPEN (Left) at the request of Dr. Mercedes Gutierrez for consultation. My final recommendation will be communicated back to the requesting physician by way of shared medical record or letter. 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 CHIEF COMPLAINT: pre op HPI: Wilda White is a 73 year old female presenting for pre-anesthesia consultation. Pt has history of left foot hammer toe. Above procedure recommended to manage symptoms. Procedure scheduled on 08/11/2023 at [facility]. REVIEW OF SYSTEMS: General: No weight loss, malaise or fevers. Neurological: Positive for: peripheral neuropathy. Negative for: headaches, seizures, TIA and strokes. Respiratory: Positive for: asthma (Rescue inhaler), obstructive sleep apnea and CPAP/BiPAP compliant. Negative for: COPD, current cough, dyspnea, home oxygen, tobacco use and URI < 2 weeks. Cardiovascular: Denies dizziness or syncope. Positive for: CHF, DVT/PE, hyperlipidemia and hypertension Negative for: AICD/PPM, arrhythmia, CAD, chest pain, recent ND, murmur/valvular heart disease, open heart surgery and valve surgery. GI: Positive for: GERD Negative for: abdominal pain, GI bleed <30 days, hepatitis, liver disease, nausea and vomiting. : Denies kidney disease Negative for: dysuria, frequent urination, hematuria and urinary tract infection. Endocrine: Positive for: diabetes mellitus (Cortisone shot recently). Negative for: hyperthyroidism and hypothyroidism. Hematology: Negative for: anemia, bruises/bleeds easily, factor V Leiden, hemophilia, thrombocytopenia and von Willebrand disease. Oncology: No history of CA metastasis, chemo within 30 days, or radiotherapy within 90 days. No history of oncological symptoms or problems. Psych: Negative for: anxiety, bipolar disorder and depression. Musculoskeletal: See HPI. Skin: Negative for lesions, rash and itching. PAST MEDICAL HISTORY Diagnosis Date Diastolic dysfunction, left ventricle 07/28/2014 06/13/2014 echocardiogram. Essential hypertension, benign Hallux valgus (acquired) 12/20/2010 Menopause SHANNON (obstructive sleep apnea) 08/01/14 Severe. 08/01/14 [facility] PSG with AHI 29.4-30.5. Corrected with 16 [...] Detached Retina Sister Diabetes Sister Hypertension Brother Anesthesia Problems No Family History Social History Tobacco Use Smoking status: Former [...] use: Yes Comment: Occasional. Drug use: No Prior to Admission medications as of 07/29/23 1434 Medication Sig Last Dose Taking pregabalin (LYRICA) 75 mg capsule Yes omeprazole (PRILOSEC) 40 mg capsule Take 1 capsule by mouth once daily. Yes isosorbide mononitrate ER (IMDUR) 30 mg 24 hr tablet Yes ezetimibe (ZETIA) 10 mg tablet Take by mouth. Yes amLODIPine (NORVASC) 5 mg tablet Yes DULoxetine (CYMBALTA) 20 mg capsule Take 1 capsule by mouth once daily. Yes insulin 70/30 NPH/regular units/mL (NOVOLIN 70/30) 50 units sc at breakfast, 55 units at lunch, 82 units at supper. Patient taking differently: 70/90 units depending on sugars Taking Yes insulin needles, DISPOSABLE, (PEN NEEDLE) 31 X 16 Misc Ndle use as directed Taking Yes ASPIRIN 81 MG TAB Take one (1) tablet daily . Taking Yes REQUIP 4 MG TAB Take 1 tablet at bedtime as needed Taking Yes pioglitazone (ACTOS) 15 mg tablet hydroCHLOROthiazide 25 mg tablet furosemide (LASIX) 40 mg tablet Take 2 tablets by mouth every afternoon. traMADol (ULTRAM) 50 mg tablet Take 50 mg by mouth every 6 hours as needed for pain. meloxicam (MOBIC ORAL) Take by mouth. Patient not taking: Reported on 07/28/2023 Not Taking nystatin-triamcinolone (MYCOLOG) ointment Apply sparingly to perineum twice daily for irritation/infection. potassium chloride ER (K-DUR, KLOR-CON) 20 mEq tablet Take 1 tablet by mouth once daily. Patient not taking: Reported on 07/28/2023 Not Taking losartan (COZAAR) 100 mg tablet Take 1 tablet by mouth once daily. Patient not taking: Reported on 07/28/2023 Not Taking Medication Comments documented by Srinivas Carrera on 07/19/2014 at 0926. ALLERGIES Allergen Reactions Ambien [Zolpidem Ta* Other: See Comments Sleep walking Cats Itching, Shortness of Breath, Other: See Comments Stuffy nose, itching in mouth Codeine Itching Dogs Itching, Shortness of Breath, Other: See Comments Stuffy nose, itching in mouth Latex Rash, Itching Pravastatin Myalgia Seasonal Allergies Itching, Other: See Comments Runny nose/eyes, sneezing Objective PHYSICAL EXAM: General: alert and oriented, healthy appearance and morbidly obese. Pertinent negatives noted - not distressed. Skin: normal color, no rash or lesions. HEENT: EOM intact, pupils equal round and pupils reactive to light. Pertinent negatives noted - no carotid bruit. Cardiovascular: regular rate and rhythm, normal S1 and S2, no rub, murmurs, or gallop. No radial pulse abnormalities. Respiratory: normal breath sounds, no wheezes or crackles. No chest wall deformity or tenderness. Abdomen: soft. Pertinent negatives noted - not tender. Extremities: Positive for edema and joint tenderness. Pertinent negatives noted - no cellulitis, no clubbing, no deformity, no joint swelling, no abnormal pulses, no ulcer, no vascular insufficiency and no varicose veins. B/L LE EDEMA, wearing compression socks. Neurological: normal cognition and motor skills. Gait not observed, in wheelchair d/t foot pain.. PAIN ASSESSMENT: VITALS: BP 102/60 Pulse 86 Temp (Src) 97.1 (Temporal) Resp 14 Ht 5' 4 (1.63m) Wt 259 lb (117.5kg) SpO2 95% BMI 44.44 kg/(m^2). Diagnostic tests reviewed for today's visit: Lab Value Units Date High Low HB No results within date range. HCT No results within date range. WBC No results within date range. PLT No results within date range. NA No results within date range. K No results within date range. GLUC No results within date range. BUN No results within date range. CREAT No results within date range. PTSEC No results within date range. INR No results within date range. APTT No results within date range. ALT No results within date range. AST No results within date range. TBILI No results within date range. TSH No results within date range. Lab Value Units Date High Low HCGQT No results within date range. UHCG No results within date range. HCG, BODY* No results within date range. Lab Value Units Date High Low ABORHD No results within date range. ABSCREEN No results within date range. Hemoglobin A1C (%) Date Value 01/21/2019 7.8 12/10/2018 8.2 12/07/2018 8.3 10/29/2018 8.8 08/10/2018 7.4 No results found for this or any previous visit (from the past 8760 hour(s)). No results found for this or any previous visit (from the past 23091 hour(s)). Assessment Patient has the following medical conditions which may affect jennyfer-operative course: Type 2 diabetes mellitus with diabetic polyneuropathy, with long-term current use of insulin (HCC) Assessment: IDDM, Follows with PCP. Poor control, but better than in the past. Reports that her fasting blood glucose is sometimes in the 200's - at its highest, it has gone up to 300. Most recent A1C 04/05/2022 - 8.7% Hemoglobin (G/DL) Date Value 02/14/2019 10.4 02/13/2019 10.7 02/12/2019 10.3 Diastolic dysfunction, left ventricle Assessment: Follows cardiology. Not taking all of her medications consistently. Appears euvolemic (chronic LE pitting edema, wearing compression socks today, pt reports LE are less swollen than normal today), denies new or worsening cardiac symptoms. Last cardiology follow up was 02/11/23 (Meg Stephens NP) Echocardiogram done locally ([facility]) on 07/16/22 - report uploaded to scanned docs EF 60%, no evidence for diastolic dysfunction. Aortic sclerosis, no stenosis. Hyperlipidemia Assessment: Taking ezetimibe daily. Hypertension Assessment: Follows with PCP, adherent to RX. In office today BP: 102/60 Asthma Assessment: Asthma with COPD overlap. Denies recent issues. Has albuterol inhaler or nebulizer for emergencies. Not using daily. Obstructive sleep apnea Assessment: SHANNON adherent to CPAP use. Gastroesophageal reflux disease Assessment: On PPI. Denies symptoms. Stage 3b chronic kidney disease (HCC) Assessment: Follows with PCP. Labs 07/04/2023 BUN: 15 Creatinine: 1.52 GFR: 36 History of pulmonary embolus (PE) Assessment: No longer on DOAC. Takes daily ASA. Coronary artery disease of [place] artery of [place] heart with stable angina pectoris (HCC) Assessment: Non-obstructive CAD, Follows with [facility]. Denies chest pain. Taking Zetia, ASA, Imdur. Not on BB. Morbid obesity (HCC) Assessment: Body mass index is 44.46 kg/m . Melvin Activity Status Index: METS: Do light work around the house, such as dusting or washing dishes (2.70 METs) DASI Score: 2.7 Patient denies any chest pain or undue shortness of breath with the above physical activity. [id number] Score: Age: 65-74 Sex: female CHF history: Yes Hypertension history: Yes Stroke/TIA/thromboembolism history: No Vascular disease history: Yes Diabetes history: Yes [id number] Score: 6 ANESTHESIA FINDINGS: Intubation History: Significant Anesthesia Considerations: Airway History: I - PHYSICAL EVALUATION AIRWAY Patient intubated: No. Tracheostomy tube not present Mallampati: IV. TM distance: >3 FB. Neck ROM: full ROM without neurological symptoms. Mouth opening: adequate. Short neck: no. Thick neck: no Lip Bite Test: II Microretrognathia/Micronagthia/R ecessed Chin: No DENTAL Dentures, upper: complete. Dentures, lower: complete. II - ANESTHESIA PLAN Anesthetic Plan: other Anesthetic plan additional comments: *PACC/TCI - anesthesia choice. Beta Yonny Monitoring Plan Post Procedure Analgesic Plan Prepared for Surgery: optimally prepared for surgery. - Labs completed at [facility] on 06/04/23 CBC with diff; 07/04/23, BMP uploaded into scanned docs. HgBA1C from 05/2022 uploaded to scanned docs as well. CONSULTS: Planned Anesthetic: other anesthesia choice The Following Tests/Procedures Have Been Initiated: Orders Placed This Encounter pregabalin (LYRICA) 75 mg capsule pioglitazone (ACTOS) 15 mg tablet omeprazole (PRILOSEC) 40 mg capsule Sig: Take 1 capsule by mouth once daily. isosorbide mononitrate ER (IMDUR) 30 mg 24 hr tablet hydroCHLOROthiazide 25 mg tablet furosemide (LASIX) 40 mg tablet Sig: Take 2 tablets by mouth every afternoon. ezetimibe (ZETIA) 10 mg tablet Sig: Take by mouth. amLODIPine (NORVASC) 5 mg tablet DULoxetine (CYMBALTA) 20 mg capsule Sig: Take 1 capsule by mouth once daily. traMADol (ULTRAM) 50 mg tablet Sig: Take 50 mg by mouth every 6 hours as needed for pain. Instructions Given to Patient: Instructions located in the after visit summary. Patient given verbal and written preop instructions and voices comprehension and compliance. SIGNATURE: Jennifer Pond PA-C PATIENT NAME: Wilda White DATE: 07/28/2023 TIME: 2:34 PM PAGER/CONTACT #: documented in this encounter [facility] 07-02-2023 Telephone encounter Note Surgery scheduled in [facility] Cheyenne Sánchez LPN [facility] Work Phone: 07-02-2023 Miscellaneous Notes Surgery scheduled in [facility] Cheyenne Sánchez LPN Patient presented to office today 06/26/2023 to discuss surgery and sign consent. Patient elected to schedule surgery for Flexor tenotomy, left 2nd toe on 08/11/2023 at [facility]. Patient was provided with surgical packet including electronic and paper copy of surgical confirmation letter, hibiclens and instruction on how to use product as well as instruction on where to go at [facility]. All post op were scheduled with in office as well. Patient verbalized understanding of all instructions. Surgery needs scheduled in [facility]. Cheyenne Sánchez LPN documented in this encounter [facility] 06-26-2023 Note HNO ID: [id number] Author: MERCEDES GUTIERREZ, ? Service: ? Author Type: Physician Type: Progress Notes Filed: 06/26/2023 22:21 Note Text: Last saw pcp: 02/24/23 Subjective: Patient presents to clinic c/o painful toenails. They state that the nails are especially painful with shoe gear and pressure. Patient admits to being diabetic. Does complain of pain to left 2nd toe where she has chronic callus. She is here to discuss options for the ongoing callus. No other pedal complaints at this time. Patient states no change in medications or medical history since last visit. Objective: Patient presents to clinic ambulating in diabetic shoes Vasc: DP and PT pulses are palpable bilateral. CFT is less than 5 seconds bilateral. Skin temperature is warm to cool proximal to distal bilateral. There is severe edema or varicosities noted. Neuro: Protective sensation is absent to the foot and toes when tested with the 5.07 SWM bilateral. Vibratory sensation is absent at the hallux IPJ bilateral. The hallux is downgoing bilateral. Derm: Nails 1-5 right and 1-3,5 left are discolored-yellow, thick, crumbly, dystrophic and with subungal debris. There is pre-ulcerative callus to left 2nd toe, distal tuft. No ulceration upon debridement. Skin is of normal turgor, texture and hair growth is present bilateral. Ortho: Muscle strength is 5/5 for all pedal groups tested. Ankle joint DF is decreased with the knee extended with no pain or crepitus noted. 1st MPJ ROM is decreased bilateral. Large bunion is noted to b/l feet. There is semi-reducible hammertoe of left 2nd toe. There is amputation of left 4th toe Assessment: (M20.42) Hammertoe of left foot (primary encounter diagnosis) (L84) Callus of foot (Z89.422) History of amputation of lesser toe of left foot ([facility] (E08.42) Diabetic polyneuropathy associated with diabetes mellitus due to underlying condition ([facility]) (L60.0) Onychocryptosis (M79.675) Pain in toe of left foot (M79.674) Pain in toe of right foot Plan: Patient was seen and evaluated. Nails 1-5 right and 1-3, 5 left were debrided in length and thickness. Callus to left 2nd toe was reduced with tissue nippers and 15 blade. I discussed the callus with patient in great detail. This is a pre-ulcerative callus and if the callus continues, she could be at risk of ulceration that could lead to bone infection. She has been using hammertoe crest pad but still develops callus. I discussed with patient surgical correction. We discussed flexor tenotomy vs major reconstruction vs toe amputation. This patient is interested in trying flexor tenotomy. I informed her that flexor tenotomy will not result in complete correction but should result in enough correction to hopefully limit callus formaation. I discussed risks of the procedure not limited to infection, pain, swelling, bleeding, slow wound healing, loss of toe. I also discussed with patient the risk of skin tearing due to swelling of lower extremity. She understands these risks. She has consented to do flexor tenotomy. She prefers to be sedated for the procedure. Patient was instructed on the continued importance of diabetic foot care along with proper diet and keeping their blood sugar under control to prevent complications. Mercedes Gutierrez DPM [facility] 06-26-2023 History of Presen t illness Narrative Last saw pcp: 02/24/23 Subjective: Patient presents to clinic c/o painful toenails. They state that the nails are especially painful with shoe gear and pressure. Patient admits to being diabetic. Does complain of pain to left 2nd toe where she has chronic callus. She is here to discuss options for the ongoing callus. No other pedal complaints at this time. Patient states no change in medications or medical history since last visit. Objective: Patient presents to clinic ambulating in diabetic shoes Vasc: DP and PT pulses are palpable bilateral. CFT is less than 5 seconds bilateral. Skin temperature is warm to cool proximal to distal bilateral. There is severe edema or varicosities noted. Neuro: Protective sensation is absent to the foot and toes when tested with the 5.07 SWM bilateral. Vibratory sensation is absent at the hallux IPJ bilateral. The hallux is downgoing bilateral. Derm: Nails 1-5 right and 1-3,5 left are discolored-yellow, thick, crumbly, dystrophic and with subungal debris. There is pre-ulcerative callus to left 2nd toe, distal tuft. No ulceration upon debridement. Skin is of normal turgor, texture and hair growth is present bilateral. Ortho: Muscle strength is 5/5 for all pedal groups tested. Ankle joint DF is decreased with the knee extended with no pain or crepitus noted. 1st MPJ ROM is decreased bilateral. Large bunion is noted to b/l feet. There is semi-reducible hammertoe of left 2nd toe. There is amputation of left 4th toe Assessment: (M20.42) Hammertoe of left foot (primary encounter diagnosis) (L84) Callus of foot (Z89.422) History of amputation of lesser toe of left foot (HCC (E08.42) Diabetic polyneuropathy associated with diabetes mellitus due to underlying condition ([facility]) (L60.0) Onychocryptosis (M79.675) Pain in toe of left foot (M79.674) Pain in toe of right foot Plan: Patient was seen and evaluated. Nails 1-5 right and 1-3, 5 left were debrided in length and thickness. Callus to left 2nd toe was reduced with tissue nippers and 15 blade. I discussed the callus with patient in great detail. This is a pre-ulcerative callus and if the callus continues, she could be at risk of ulceration that could lead to bone infection. She has been using hammertoe crest pad but still develops callus. I discussed with patient surgical correction. We discussed flexor tenotomy vs major reconstruction vs toe amputation. This patient is interested in trying flexor tenotomy. I informed her that flexor tenotomy will not result in complete correction but should result in enough correction to hopefully limit callus formaation. I discussed risks of the procedure not limited to infection, pain, swelling, bleeding, slow wound healing, loss of toe. I also discussed with patient the risk of skin tearing due to swelling of lower extremity. She understands these risks. She has consented to do flexor tenotomy. She prefers to be sedated for the procedure. Patient was instructed on the continued importance of diabetic foot care along with proper diet and keeping their blood sugar under control to prevent complications. Mercedes Gutierrez DPM documented in this encounter [facility] 06-26-2023 Telephone encounter Note Patient presented to office today 06/26/2023 to discuss surgery and sign consent. Patient elected to schedule surgery for Flexor tenotomy, left 2nd toe on 08/11/2023 at [facility]. Patient was provided with surgical packet including electronic and paper copy of surgical confirmation letter, hibiclens and instruction on how to use product as well as instruction on where to go at [facility]. All post op were scheduled with in office as well. Patient verbalized understanding of all instructions. Surgery needs scheduled in [facility]. Cheyenne Sánchez LPN [facility] 04-14-2023 Note HNO ID: [id number] Author: MERCEDES GUTIERREZ, ? Service: ? Author Type: Physician Type: [...] SHANNON (obstructive sleep apnea) 08/01/14 Severe. 08/01/14 [facility] PSG with AHI 29.4-30.5. Corrected with 16 [...] needles, DISPOSABLE, (PEN NEEDLE) 31 X 08/06 [facility] [place] [place] Ndle use as directed ASPIRIN 81 MG [...] with diabetes mellitus due to underlying condition ([facility]) PLAN: Discussed ongoing callus vs ulceraiton of [...] weeks or sooner if problems arise Mercedes Gutierrez DPM [facility] 04-11-2023 Note HNO ID: [id number] Author: CHEYENNE SÁNCHEZ LPN Service: ? Author Type: LICENSED NURSE Type: Progress Notes Filed: 04/14/2023 12:44 Note Text: AMB ROOMING INTAKE FLOWSHEET DATA Patient presents with: Left Foot - Established Patient, Numbness Right Foot - Established Patient, Numbness Cheyenne Sánchez LPN [facility] 04-03-2023 Note HNO ID: [id number] Author: MICHAEL SEGURA RT(R) Service: Radiology Author Type: Technologist Type: [...] RT Richard(R) April 03, 2023 2:20 PM [facility] 04-03-2023 Note HNO ID: [id number] Author: MERCEDES GUTIERREZ, ? Service: ? Author Type: Physician Type: [...] Objective: Patient presents to clinic ambulating in [facility] Vasc: DP and PT pulses are faintly [...] amputation of lesser toe of left foot ([facility]) (E08.41) Diabetic mononeuropathy associated with diabetes mellitus due to underlying condition ([facility]) (M20.42) Hammertoe of left foot (R09.89) Diminished [...] is to RTC in 2 weeks. Mercedes Gutierrez DPM [facility] 04-03-2023 Note HNO ID: [id number] Author: CHEYENNE SÁNCHEZ LPN Service: ? Author [...] Diabetic Foot Care, Pain Cheyenne Sánchez LPN [facility] 01-01-2023 Note HNO ID: [id number] Author: Mercedes Gutierrez Service: ? Author Type: Physician Type: Progress [...] is to RTC in 3-4 months. Mercedes Gutierrez DPM [facility] 01-01-2023 History of Presen t illness Narrative [...] amputation of lesser toe of left foot ([facility]) (E08.41) Diabetic mononeuropathy associated with diabetes mellitus due to underlying condition ([facility]) Callus hammertoe Plan: Patient was seen and [...] is to RTC in 3-4 months. Mercedes Gutierrez DPM AMB ROOMING INTAKE FLOWSHEET DATA Patient presents with: Left Foot - Established Patient, Diabetic Foot Care Right Foot - Established Patient, Diabetic Foot Care Cheyenne Sánchez LPN documented in this encounter [facility] 01-01-2023 Instructions Mercedes Gutierrez - 01/01/2023 1:28 PM EDT Diabetes Foot [...] (or decreased sensation in your feet) a accountant auditor should always cut your toenails. Be Careful [...] Go to your health care provider or accountant auditor to treat these conditions. documented in this encounter [facility] 01-01-2023 Note HNO ID: [id number] Author: Cheyenne Sánchez LPN Service: ? Author Type: LICENSED NURSE Type: Progress Notes Filed: 01/01/2023 11:07 PM Note Text: AMB ROOMING INTAKE FLOWSHEET DATA Patient presents with: Left Foot - Established Patient, Diabetic Foot Care Right Foot - Established Patient, Diabetic Foot Care Cheyenne Sánchez LPN [facility] 11-13-2022 Instructions Mercedes Gutierrez - 11/13/2022 3:11 PM EDT Diabetes Foot [...] (or decreased sensation in your feet) a accountant auditor should always cut your toenails. Be Careful [...] Go to your health care provider or accountant auditor to treat these conditions. documented in this encounter [facility] 11-13-2022 History of Presen t illness Narrative [...] SHANNON (obstructive sleep apnea) 08/01/14 Severe. 08/01/14 [facility] PSG with AHI 29.4-30.5. Corrected with 16 [...] of lesser toe of left foot (HCC) (L84) Callus of foot (E08.41) Diabetic mononeuropathy associated with diabetes mellitus due to underlying condition ([facility]) (M20.12) Acquired hallux valgus of left alessia [...] left foot 6. Diabetic shoes ordered Mercedes Gutierrez DPM AMB ROOMING INTAKE FLOWSHEET DATA Patient presents with: Left Foot - New, Foot Deformity Right Foot - New, Foot Deformity Cheyenne Sánchez LPN documented in this encounter [facility] 10-02-2022 Miscellaneous Notes Called lvm asking pt to call back in and r/s appt from 12/11. Dr Butler will not be in the office that afternoon. documented in this encounter [facility] 08-29-2022 History of Presen t illness Narrative [...] SHANNON (obstructive sleep apnea) 08/01/14 Severe. 08/01/14 [facility] PSG with AHI 29.4-30.5. Corrected with 16 [...] insulin needles, DISPOSABLE, (PEN NEEDLE) 31 X 16 Misc Ndle use as directed ASPIRIN 81 [...] of left foot, with fat layer exposed ([facility]) Q7 class findings Plan: 1. Patient was [...] edited significantly as necessary for today's visit. Jazmin Butler DPM, DABPM, FACFAS Pager: [phone] [facility] [place] [facility] and [facility] locations documented in this encounter [facility] 07-22-2022 History of Presen t illness Narrative This note was created using [employer]. Subjective Wilda White is a 72 year [...] SHANNON (obstructive sleep apnea) 08/01/14 Severe. 08/01/14 [facility] PSG with AHI 29.4-30.5. Corrected with 16 [...] evaluation. BREONNA Davis documented in this encounter [facility] 05-22-2022 History of Presen t illness Narrative [...] SHANNON (obstructive sleep apnea) 08/01/14 Severe. 08/01/14 [facility] PSG with AHI 29.4-30.5. Corrected with 16 [...] insulin needles, DISPOSABLE, (PEN NEEDLE) 31 X 16 [facility] [place] [place] Ndle use as directed ASPIRIN 81 MG [...] of left foot, with fat layer exposed (formerly [facility]) Q7 class findings Plan: 1. Patient was [...] edited significantly as necessary for today's visit. Jazmin Butler DPM, DABPM, FACFAS Pager: [phone] [facility] [place] [facility] and [facility] locations documented in this encounter [facility] 02-21-2022 History of Presen t illness Narrative [...] SHANNON (obstructive sleep apnea) 08/01/14 Severe. 08/01/14 [facility] PSG with AHI 29.4-30.5. Corrected with 16 [...] polyneuropathy, with long-term current use of insulin (formerly [facility]) Q7 class findings Plan: 1. Patient was [...] edited significantly as necessary for today's visit. Jazmin Butler DPM, DABPM, FACFAS Pager: [phone] [facility] [place] [facility] and [facility] locations documented in this encounter [facility] 01-22-2022 Miscellaneous Notes Patient given results and verbalized understanding of instructions given. Madalyn Artis Please inform patient that the urine culture revealed bacterial growth. The antibiotic picked looks to be appropriate for treatment. The fungal culture did not reveal growth at 3 days. We will call if that changes. Please follow up with PCP documented in this encounter [facility] 01-18-2022 History of Presen t illness Narrative This note was created using [employer]. Subjective Wilda White is a 71 year [...] history is provided by the patient. No american sign language interpreter was used. Rash This is a recurrent [...] SHANNON (obstructive sleep apnea) 08/01/14 Severe. 08/01/14 [facility] PSG with AHI 29.4-30.5. Corrected with 16 [...] needles, DISPOSABLE, (PEN NEEDLE) 31 X 08/06 [facility] [place] [place] Ndle use as directed ASPIRIN 81 MG [...] she cannot recall the date she saw [facility] reveals 11/23/21, but unable to see treatment [...] she cannot recall the date she saw [facility] reveals 11/23/21, but unable to see treatment completely - UA positive for sandy esterase and nitrates - Send urine for culture - Begin treatment with keflex - Patient education for prevention given - GLUCOSE, BLOOD (POC) - UA DIP, URINE (POC) - URINE CULTURE - URINE CULTURE Heather Owens [email or web address].[email or web address] documented in this encounter [facility] 11-15-2021 History of Presen t illness Narrative [...] SHANNON (obstructive sleep apnea) 08/01/14 Severe. 08/01/14 [facility] PSG with AHI 29.4-30.5. Corrected with 16 [...] ) Gauze Bandage ([employer]) / [...] Patient is to RTC in 3 months Jazmin Butler DPM, DABPM, FACFAS Pager: [phone] [facility] [place] [facility] and [facility] locations documented in this encounter [facility] 08-02-2021 History of Presen t illness Narrative [...] SHANNON (obstructive sleep apnea) 08/01/14 Severe. 08/01/14 [facility] PSG with AHI 29.4-30.5. Corrected with 16 [...] daily. Gauze Bandage ([employer]) 1/4 [...] needles, DISPOSABLE, (PEN NEEDLE) 31 X 08/06 [facility] [place] [place] Ndle use as directed ASPIRIN 81 MG [...] foot examination, type 2 dm, encounter for ([facility]) Plan: 1. Patient was seen and evaluated. 2. Nails 1-5 bilateral were debrided in length and thickness. 3. Patient is to RTC in 3 months DFE updated Jazmin Butler DPM, DABPM, FACFAS Pager: [phone] [facility] [place] [facility] and [facility] locations documented in this encounter [facility] 06-28-2015 History of Past i llness Narrative Problem Noted Date Resolved Date Hypokalemia 06/28/2015 07/03/2016 Sciatica of left side 03/14/2014 07/03/2016 Overview: Due to lumbar spondylosis/stenosis. Poor balance 03/03/2013 07/03/2016 Ulcer of other part of foot 05/09/201008/22 Type II or unspecified type diabetes mellitus with neurological manifestations, uncontrolled(250.62) 05/08/201008/22 documented as of this encounter (statuses as of 07/12/2021) [facility] History of Past illness Narrative* Problem Noted Date Resolved Date Hypokalemia 06/28/2015 07/03/2016 Sciatica of left side 03/14/2014 07/03/2016 Overview: Due to lumbar spondylosis/stenosis. Poor balance 03/03/2013 07/03/2016 Ulcer of other part of foot 05/09/201008/22 Type II or unspecified type diabetes mellitus with neurological manifestations, uncontrolled(250.62) 05/08/201008/22 documented as of this encounter (statuses as of 08/02/2021) [facility] History of Past illness Narrative* Problem Noted Date Resolved Date Hypokalemia 06/28/2015 07/03/2016 Sciatica of left side 03/14/2014 07/03/2016 Overview: Due to lumbar spondylosis/stenosis. Poor balance 03/03/2013 07/03/2016 Ulcer of other part of foot 05/09/201008/22 Type II or unspecified type diabetes mellitus with neurological manifestations, uncontrolled(250.62) 05/08/201008/22 documented as of this encounter (statuses as of 11/15/2021) [address]06-2016 History of Past illness Narrative* Problem Noted Date Resolved Date Hypokalemia 06/28/2015 07/03/2016 Sciatica of left side 03/14/2014 07/03/2016 Overview: Due to lumbar spondylosis/stenosis. Poor balance 03/03/2013 07/03/2016 Ulcer of other part of foot 05/09/201008/22 Type II or unspecified type diabetes mellitus with neurological manifestations, uncontrolled(250.62) 05/08/201008/22 documented as of this encounter (statuses as of 01/18/2022) [address]06-2016 History of Past illness Narrative* Problem Noted Date Resolved Date Hypokalemia 06/28/2015 07/03/2016 Sciatica of left side 03/14/2014 07/03/2016 Overview: Due to lumbar spondylosis/stenosis. Poor balance 03/03/2013 07/03/2016 Ulcer of other part of foot 05/09/201008/22 Type II or unspecified type diabetes mellitus with neurological manifestations, uncontrolled(250.62) 05/08/201008/22 documented as of this encounter (statuses as of 01/22/2022) [address]06-2016 History of Past illness Narrative* Problem Noted Date Resolved Date Hypokalemia 06/28/2015 07/03/2016 Sciatica of left side 03/14/2014 07/03/2016 Overview: Due to lumbar spondylosis/stenosis. Poor balance 03/03/2013 07/03/2016 Ulcer of other part of foot 05/09/201008/22 Type II or unspecified type diabetes mellitus with neurological manifestations, uncontrolled(250.62) 05/08/201008/22 documented as of this encounter (statuses as of 02/21/2022) [facility]06[facility]2016 History of Past illness Narrative* Problem Noted Date Resolved Date Hypokalemia 06/28/2015 07/03/2016 Sciatica of left side 03/14/2014 07/03/2016 Overview: Due to lumbar spondylosis/stenosis. Poor balance 03/03/2013 07/03/2016 Ulcer of other part of foot 05/09/201008/22 Type II or unspecified type diabetes mellitus with neurological manifestations, uncontrolled(250.62) 05/08/201008/22 documented as of this encounter (statuses as of 05/23/2022) [facility] History of Past illness Narrative* Problem Noted Date Resolved Date Hypokalemia 06/28/2015 07/03/2016 Sciatica of left side 03/14/2014 07/03/2016 Overview: Due to lumbar spondylosis/stenosis. Poor balance 03/03/2013 07/03/2016 Ulcer of other part of foot 05/09/201008/22 Type II or unspecified type diabetes mellitus with neurological manifestations, uncontrolled(250.62) 05/08/201008/22 documented as of this encounter (statuses as of 07/23/2022) [facility] History of Past illness Narrative* Problem Noted Date Resolved Date Hypokalemia 06/28/2015 07/03/2016 Sciatica of left side 03/14/2014 07/03/2016 Overview: Due to lumbar spondylosis/stenosis. Poor balance 03/03/2013 07/03/2016 Ulcer of other part of foot 05/09/201008/22 Type II or unspecified type diabetes mellitus with neurological manifestations, uncontrolled(250.62) 05/08/201008/22 documented as of this encounter (statuses as of 08/29/2022) [facility] History of Past illness Narrative* Problem Noted Date Diagnosed Date Resolved Date Hypokalemia 06/28/2015 07/03/2016 Sciatica of left side 03/14/20142016 Overview: Due to lumbar spondylosis/stenosis. Poor balance 03/03/2013 07/03/2016 Ulcer of other part of foot 05/09/2010 09/09/2012 Type II or unspecified type diabetes mellitus with neurological manifestations, uncontrolled(250.62) 05/08/2010 09/09/2012 documented as of this encounter (statuses as of 10/02/2022) [facility] History of Past illness Narrative* Problem Noted Date Diagnosed Date Resolved Date Hypokalemia 06/28/2015 07/03/2016 Sciatica of left side 03/14/20142016 Overview: Due to lumbar spondylosis/stenosis. Poor balance 03/03/2013 07/03/2016 Ulcer of other part of foot 05/09/2010 09/09/2012 Type II or unspecified type diabetes mellitus with neurological manifestations, uncontrolled(250.62) 05/08/2010 09/09/2012 documented as of this encounter (statuses as of 11/14/2022) [facility] History of Past illness Narrative* Problem Noted Date Diagnosed Date Resolved Date Hypokalemia 06/28/2015 07/03/2016 Sciatica of left side 03/14/20142016 Overview: Due to lumbar spondylosis/stenosis. Poor balance 03/03/2013 07/03/2016 Ulcer of other part of foot 05/09/2010 09/09/2012 Type II or unspecified type diabetes mellitus with neurological manifestations, uncontrolled(250.62) 05/08/2010 09/09/2012 documented as of this encounter (statuses as of 01/02/2023) [facility] History of Past illness Narrative* Problem Noted Date Diagnosed Date Resolved Date Hypokalemia 06/28/2015 07/03/2016 Sciatica of left side 03/14/20142016 Overview: Due to lumbar spondylosis/stenosis. Poor balance 03/03/2013 07/03/2016 Ulcer of other part of foot 05/09/2010 09/09/2012 Type II or unspecified type diabetes mellitus with neurological manifestations, uncontrolled(250.62) 05/08/2010 09/09/2012 documented as of this encounter (statuses as of 06/27/2023) [facility] Diagnosis Onychocryptosis- Primary Ingrowing nail Onychomycosis Dermatophytosis of nail Pain in toe of left foot Pain in limb Pain in toe of right foot Pain in limb History of amputation of lesser toe of left foot ([facility]) Type 2 diabetes mellitus with diabetic polyneuropathy, with long-term current use of insulin ([facility]) Comprehensive diabetic foot examination, type 2 DM, encounter for ([facility]) Type II or unspecified type diabetes mellitus without mention of complication, not stated as uncontrolled [facility] History of amputation of lesser toe of left foot ([facility])- Primary Type 2 diabetes mellitus with diabetic polyneuropathy, with long-term current use of insulin ([facility]) Comprehensive diabetic foot examination, type 2 DM, encounter for ([facility]) Type II or unspecified type diabetes mellitus without mention of complication, not stated as uncontrolled Hammer toes of both feet Pes planus of both feet Bilateral bunions Bunion Onychocryptosis Ingrowing nail Onychomycosis Dermatophytosis of nail Pain in toe of left foot Pain in limb Pain in toe of right foot Pain in limb [facility] Diagnosis Dysuria- Primary Cely rash [...] amputation of lesser toe of left foot ([facility]) Type 2 diabetes mellitus with diabetic polyneuropathy, with long-term current use of insulin ([facility]) Ulcer of toe of left foot, with fat layer exposed ([facility]) [facility] Diagnosis Onychocryptosis- Primary Ingrowing nail [...] left foot, with fat layer exposed (HCC) [facility] Diagnosis Burning with urination- Primary Dysuria [facility] [...] ([facility]) Morbid obesity [facility] Diagnosis Onychocryptosis- Primary Ingrowing nail Pain [...] of both feet [facility] Diagnosis Onychocryptosis- Primary Ingrowing nail Pain in toe of left foot Pain in limb Pain in toe of right foot Pain in limb History of amputation of lesser toe of left foot (HCC) Diabetic mononeuropathy associated with diabetes mellitus due to underlying condition (HCC) Cervical myelopathy (HCC) Cervical spondylosis with myelopathy [facility] Diagnosis Hammertoe of left foot- Primary Callus of foot Corns and callosities History of amputation of lesser toe of left foot (HCC) Diabetic polyneuropathy associated with diabetes mellitus due to underlying condition (HCC) Onychocryptosis Ingrowing nail Pain in toe of left foot Pain in limb Pain in toe of right foot Pain in limb [facility] Diagnosis Pre-op evaluation- Primary Preoperative examination, unspecified Type 2 diabetes mellitus with diabetic polyneuropathy, with long-term current use of insulin (HCC) Diastolic dysfunction, left ventricle Heart disease, unspecified Pure hypercholesterolemia Primary hypertension Unspecified essential hypertension Mild intermittent asthma without complication Unspecified asthma Obstructive sleep apnea Obstructive sleep apnea (adult) (pediatric) Gastroesophageal reflux disease, unspecified whether esophagitis present Stage 3b chronic kidney disease (HCC) History of pulmonary embolus (PE) Personal history of pulmonary embolism Coronary artery disease of [place] artery of [place] heart with stable angina pectoris (HCC) Morbid obesity (HCC) Morbid obesity Hammer toe of left foot * Assessment & Plan Note - Jennifer Pond PA-C - 07/29/2023 2:33 PM EDT Associated Problem(s): Morbid obesity (HCC) Assessment: Body mass index is 44.46 kg/m . * Assessment & Plan Note - Jennifer Pond PA-C - 07/29/2023 2:30 PM EDT Associated Problem(s): Coronary artery disease of [place] artery of [place] heart with stable angina pectoris (HCC) Assessment: Non-obstructive CAD, Follows with [facility]. Denies chest pain. Taking Zetia,ASA, Imdur. Not on BB. * Assessment & Plan Note - Jennifer Pond PA-C - 07/29/2023 2:28 PM EDT Associated Problem(s): History of pulmonary embolus (PE) Assessment: No longer on DOAC. Takes daily ASA. * Assessment & Plan Note - Jennifer Pond PA-C - 07/29/2023 2:19 PM EDT Associated Problem(s): Stage 3b chronic kidney disease (HCC) Assessment: Follows with PCP. Labs 07/04/2023 BUN: 15 Creatinine: 1.52 GFR: 36 * Assessment & Plan Note - Jennifer Pond PA-C - 07/29/2023 1:18 PM EDT Associated Problem(s): Gastroesophageal reflux disease Assessment: On PPI. Denies symptoms. * Assessment & Plan Note - Jennifer Pond PA-C - 07/29/2023 1:17 PM EDT Associated Problem(s): Obstructive sleep apnea Assessment: SHANNON adherent to CPAP use. * Assessment & Plan Note - Jennifer Pond PA-C - 07/29/2023 1:16 PM EDT Associated Problem(s): Asthma Assessment: Asthma with COPD overlap. Denies recent issues. Has albuterol inhaler or nebulizer for emergencies. Not using daily. * Assessment & Plan Note - Jennifer Pond PA-C - 07/29/2023 1:15 PM EDT Associated Problem(s): Hypertension Assessment: Follows with PCP, adherent to RX. In office today BP: 102/60 * Assessment & Plan Note - Jennifer Pond PA-C - 07/29/2023 1:15 PM EDT Associated Problem(s): Hyperlipidemia Assessment: Taking ezetimibe daily. * Assessment & Plan Note - Jennifer Pond PA-C - 07/29/2023 1:14 PM EDT Associated Problem(s): Diastolic dysfunction, left ventricle Assessment: Follows cardiology. Not taking all of her medications consistently. Appears euvolemic (chronic LE pitting edema, wearing compression socks today, pt reports LE are less swollen than normal today), denies new or worsening cardiac symptoms. Last cardiology follow up was 02/11/23 (Meg Stephens NP) Echocardiogram done locally ([facility]) on 07/16/22 - report uploaded to scanned docs EF 60%, no evidence for diastolic dysfunction. Aortic sclerosis, no stenosis. * Assessment & Plan Note - Jennifer Pond PA-C - 07/29/2023 1:12 PM EDT Associated Problem(s): Type 2 diabetes mellitus with diabetic polyneuropathy, with long-term current use of insulin (HCC) Assessment: IDDM, Follows with PCP. Poor control, but better than in the past. Reports that her fasting blood glucose is sometimes in the 200's - at its highest, it has gone up to 300. Most recent A1C 04/05/2022 - 8.7% Hemoglobin (G/DL) Date Value 02/14/2019 10.4 02/13/2019 10.7 02/12/2019 10.3 [facility] Diagnosis Hammertoe of left foot- Primary Ulcer of toe of left foot, limited to breakdown of skin (HCC) [facility] Diagnosis Hammertoe of left foot- Primary Ulcer of toe of left foot, limited to breakdown of skin (HCC) Postoperative wound dehiscence, initial encounter [facility] Diagnosis Hammertoe of left foot- Primary Ulcer of toe of left foot, limited to breakdown of skin (HCC) Wound dehiscence Disruption of external operation (surgical) wound [facility] Diagnosis Onychocryptosis- Primary Ingrowing nail Diabetic polyneuropathy associated with diabetes mellitus due to underlying condition (HCC) Pain in toe of right foot Pain in limb Pain in toe of left foot Pain in limb Hammertoe of left foot Callus of foot Corns and callosities [facility] Diagnosis Pre-operative examination- Primary Preoperative examination, unspecified Chronic osteomyelitis of toe of left foot (HCC) Type 2 diabetes mellitus with diabetic polyneuropathy, with long-term current use of insulin (HCC) Essential hypertension Unspecified essential hypertension Diastolic dysfunction, left ventricle Heart disease, unspecified Pure hypercholesterolemia Obstructive sleep apnea Obstructive sleep apnea (adult) (pediatric) Restless leg syndrome Restless legs syndrome (RLS) Uncomplicated asthma, unspecified asthma severity, unspecified whether persistent Gastroesophageal reflux disease, esophagitis presence not specified Chronic back pain, unspecified back location, unspecified back pain laterality History of pulmonary embolus (PE) Personal history of pulmonary embolism Morbid obesity (HCC) Morbid obesity Pre-op evaluation- Primary Preoperative examination, unspecified Type 2 diabetes mellitus with diabetic polyneuropathy, with long-term current use of insulin (HCC) Diastolic dysfunction, left ventricle Heart disease, unspecified Pure hypercholesterolemia Primary hypertension Unspecified essential hypertension Mild intermittent asthma without complication Unspecified asthma Obstructive sleep apnea Obstructive sleep apnea (adult) (pediatric) Gastroesophageal reflux disease, unspecified whether esophagitis present Stage 3b chronic kidney disease (HCC) History of pulmonary embolus (PE) Personal history of pulmonary embolism Coronary artery disease of [place] artery of [place] heart with stable angina pectoris (HCC) Morbid obesity (HCC) Morbid obesity Onychocryptosis- Primary Ingrowing nail Pain in toe of right foot Pain in limb Pain in toe of left foot Pain in limb History of amputation of lesser toe of left foot (HCC) Diabetic polyneuropathy associated with diabetes mellitus due to underlying condition (HCC) Hammertoe of left foot documented in this encounter [facility] (narrative)* Diagnostic Procedure Only (Routine) - Closed Specialty Diagnoses / Procedures Referred By Adin t Referred To Contact XR IMAGING Diagnoses Acquired hallux valgus of left foot Hammer toes of both feet Procedures XR FOOT GENERAL 3V AP/LAT/OBL LEFT RADEX FOOT COMPLETE MINIMUM 3 VIEWS Mercedes Gutierrez [address] [place] [address] [place] [address] Referral ID Status Reason Start Date Expiration Date V isits Requested Visits Authorized [id number] Closed Auto-Generate d Referral 11/13/2022 12/13/2023 1 1 [facility] for referral (narrative)* Diagnostic Procedure Only (Urgent) - Pending Review Specialty Diagnoses / Procedures Referred By Adin t Referred To Contact XR IMAGING Diagnoses Hammertoe of left foot Ulcer of toe of left foot, limited to breakdown of skin (HCC) Procedures XR FOOT GENERAL 3V AP/LAT/OBL RIGHT RADEX FOOT COMPLETE MINIMUM 3 VIEWS Mercedes Gutierrez [address] [place] [address] [place] [address] Referral ID Status Reason Start Date Expiration Date Visits Requested Visits Authorized [id number] Pending Review Auto-Generat ed Referral 08/21/2023 09/19/2024 1 1 [facility] Summary Purpose Family History No Family History Records FoundNo Family History Records FoundNo Family History Records FoundNo Family History Records FoundNo Family History Records Found Advance Directives Documents on File Type Date Recorded Patient 3D Specialist Expl anation Advance Directive(s) 08/12/2018 10:43 AM Advance Directive(s) 10/28/2017 1:49 PM Advance Directive(s) 09/27/2016 12:26 PM Additional Source Comments INFORMATION SOURCE (unrecogn ized section and content) DATE CREATED AUTHOR 11/19/2017 [facility] DATE CREATED AUTHOR AUTHOR'S ORGANIZ ATION 08/13/2019 [facility] ([place]) DATE CREATED AUTHOR AUTHOR'S ORGANIZ ATION 07/17/2021 [facility] [place] DATE CREATED AUTHOR AUTHOR'S ORGANIZ ATION 09/10/2023 [facility] DATE CREATED AUTHOR AUTHOR'S ORGANIZ ATION 12/27/2023 [facility] Source Comments (unrecognize d section and content) In the event this informatio n is protected by the Federal Confidentiality of Alcohol and Drug Abuse Patient Records regulations: The Federal rules restrict any use of the information to criminally investigate or prosecute any alcohol or drug abuse patient.[facility] the event this information is protected by the Federal Confidentiality of Alcohol and Drug Abuse Patient Records regulations: The Federal rules restrict any use of the information to criminally investigate or prosecute any alcohol or drug abuse patient.[facility] the event this information is protected by the Federal Confidentiality of Alcohol and Drug Abuse Patient Records regulations: The Federal rules restrict any use of the information to criminally investigate or prosecute any alcohol or drug abuse patient.[facility] the event this information is protected by the Federal Confidentiality of Alcohol and Drug Abuse Patient Records regulations: The Federal rules restrict any use of the information to criminally investigate or prosecute any alcohol or drug abuse patient.[facility] the event this information is protected by the Federal Confidentiality of Alcohol and Drug Abuse Patient Records regulations: The Federal rules restrict any use of the information to criminally investigate or prosecute any alcohol or drug abuse patient.[facility] the event this information is protected by the Federal Confidentiality of Alcohol and Drug Abuse Patient Records regulations: The Federal rules restrict any use of the information to criminally investigate or prosecute any alcohol or drug abuse patient.[facility] the event this information is protected by the Federal Confidentiality of Alcohol and Drug Abuse Patient Records regulations: The Federal rules restrict any use of the information to criminally investigate or prosecute any alcohol or drug abuse patient.[facility] the event this information is protected by the Federal Confidentiality of Alcohol and Drug Abuse Patient Records regulations: The Federal rules restrict any use of the information to criminally investigate or prosecute any alcohol or drug abuse patient.[facility] the event this information is protected by the Federal Confidentiality of Alcohol and Drug Abuse Patient Records regulations: The Federal rules restrict any use of the information to criminally investigate or prosecute any alcohol or drug abuse patient.[facility] the event this information is protected by the Federal Confidentiality of Alcohol and Drug Abuse Patient Records regulations: The Federal rules restrict any use of the information to criminally investigate or prosecute any alcohol or drug abuse patient.[facility] the event this information is protected by the Federal Confidentiality of Alcohol and Drug Abuse Patient Records regulations: The Federal rules restrict any use of the information to criminally investigate or prosecute any alcohol or drug abuse patient.[facility] the event this information is protected by the Federal Confidentiality of Alcohol and Drug Abuse Patient Records regulations: The Federal rules restrict any use of the information to criminally investigate or prosecute any alcohol or drug abuse patient.[facility] the event this information is protected by the Federal Confidentiality of Alcohol and Drug Abuse Patient Records regulations: The Federal rules restrict any use of the information to criminally investigate or prosecute any alcohol or drug abuse patient.[facility] the event this information is protected by the Federal Confidentiality of Alcohol and Drug Abuse Patient Records regulations: The Federal rules restrict any use of the information to criminally investigate or prosecute any alcohol or drug abuse patient.[facility] the event this information is protected by the Federal Confidentiality of Alcohol and Drug Abuse Patient Records regulations: The Federal rules restrict any use of the information to criminally investigate or prosecute any alcohol or drug abuse patient.[facility] the event this information is protected by the Federal Confidentiality of Alcohol and Drug Abuse Patient Records regulations: The Federal rules restrict any use of the information to criminally investigate or prosecute any alcohol or drug abuse patient.[facility] the event this information is protected by the Federal Confidentiality of Alcohol and Drug Abuse Patient Records regulations: The Federal rules restrict any use of the information to criminally investigate or prosecute any alcohol or drug abuse patient.[facility] the event this information is protected by the Federal Confidentiality of Alcohol and Drug Abuse Patient Records regulations: The Federal rules restrict any use of the information to criminally investigate or prosecute any alcohol or drug abuse patient.[facility] the event this information is protected by the Federal Confidentiality of Alcohol and Drug Abuse Patient Records regulations: The Federal rules restrict any use of the information to criminally investigate or prosecute any alcohol or drug abuse patient.[facility] the event this information is protected by the Federal Confidentiality of Alcohol and Drug Abuse Patient Records regulations: The Federal rules restrict any use of the information to criminally investigate or prosecute any alcohol or drug abuse patient.[facility] the event this information is protected by the Federal Confidentiality of Alcohol and Drug Abuse Patient Records regulations: The Federal rules restrict any use of the information to criminally investigate or prosecute any alcohol or drug abuse patient.[facility] the event this information is protected by the Federal Confidentiality of Alcohol and Drug Abuse Patient Records regulations: The Federal rules restrict any use of the information to criminally investigate or prosecute any alcohol or drug abuse patient.[facility] the event this information is protected by the Federal Confidentiality of Alcohol and Drug Abuse Patient Records regulations: The Federal rules restrict any use of the information to criminally investigate or prosecute any alcohol or drug abuse patient.[facility] Care Teams (unrecognized sec tion and content) Basketball Scout Relationship Specialty Start Date End Date Frederick Cervantes DO PCP - General Family Practice 07/19/14 Basketball Scout Relationship Specialty Start Date End Date Frederick Cervantes, DO PCP - General Family Practice 07/19/14 Basketball Scout Relationship Specialty Start Date End Date Frederick Cervantes, DO PCP - General Family Medicine 07/19/14 Basketball Scout Relationship Specialty Start Date End Date Frederick Cervantes, DO PCP - General Family Medicine 07/19/14 Basketball Scout Relationship Specialty Start Date End Date Frederick Cervantes DO PCP - General Family Medicine 07/19/14 Basketball Scout Relationship Specialty Start Date End Date Frederick Cervantes, DO PCP - General Family Medicine 07/19/14 Basketball Scout Relationship Specialty Start Date End Date Frederick Cervantes DO PCP - General Family Medicine 07/19/14 Basketball Scout Relationship Specialty Start Date End Date Frederick Cervantes DO PCP - General Family Medicine 07/19/14 Basketball Scout Relationship Specialty Start Date End Date Frederick Cervantes DO PCP - General Family Medicine 07/19/14 Basketball Scout Relationship Specialty Start Date End Date Frederick Cervantes DO PCP - General Family Medicine 07/19/14 Basketball Scout Relationship Specialty Start Date End Date Frederick Cervantes DO PCP - General Family Medicine 07/19/14 Basketball Scout Relationship Specialty Start Date End Date Frederick Cervantes DO PCP - General Family Medicine 07/19/14 Basketball Scout Relationship Specialty Start Date End Date Frederick Cervantes DO PCP - General Family Medicine 07/19/14 Basketball Scout Relationship Specialty Start Date End Date Frederick Cervantes DO PCP - General Family Medicine 07/19/14 Basketball Scout Relationship Specialty Start Date End Date Frederick Cervantes DO PCP - General Family Medicine 07/19/14 Basketball Scout Relationship Specialty Start Date End Date Frederick Cervantes DO PCP - General Family Medicine 07/19/14 Basketball Scout Relationship Specialty Start Date End Date Frederick Cervantes DO PCP - General Family Medicine 07/19/14 Basketball Scout Relationship Specialty Start Date End Date Frederick Cervantes DO PCP - General Family Medicine 07/19/14 Basketball Scout Relationship Specialty Start Date End Date Frederick Cervantes DO PCP - General Family Medicine 07/19/14 Reason for Visit (unrecogniz ed section and content) Reason Comments Established Patient Diabetic Foot Care Follow Up Diabetic Foot Care Reason Comments Follow Up DFC Reason Comments [...] Procedures Referred By Contact Referred To Contact [facility] Diagnoses Diabetic foot care Procedures Diabetic foot care RaviFrederick DO [address] [facility] [place] [address] [facility] [address] [place] [address] Referral ID Status Reason Start Date Expiration Date Visits Requested Visits Authorized [id number] Outside PCP OON/Self Pay Override 12/12/2022 06/10/2023 1 1 Reason Comments Consult Reason Comments schedule surgery Reason Comments Established Patient Post Op Diabetic Foot Ulcer Reason Comments Established Patient Follow Up Post Op Reason Comments Patient Update Reason Comments Established Patient Post Op Reason Comments Established Patient Follow Up Post Op Diabetic Foot Check Reason Comments Established Patient Follow Up Diabetic Foot Check FOR RECORDS PERTAINING TO PATIENTS WHO ARE [...] BE BASED ON THE PRIMARY CLINICAL RECORDS. [employer] provides no warranty or guarantee of the accuracy or completeness of information in this document.
== END | disposition home or self-care (01) ==
PROVIDERS: PCP Family Medicine; Referring Provider Urology; Visit Provider Urology
DX: N39.0 Urinary tract infection, site not specified (principal)
CPT/HCPCS: 87086; 87088

== ENCOUNTER 2024-01-22 06:05 | Day surgery (SDC) | payer MEDICARE, SELFPAY ==
[2024-01-22] VITALS (7 sets, daily range): BP systolic 129–159; BP diastolic 62–80; PULSE 63–94; RESP 18; TEMP 36.7–37; O2SAT 92–97; BMI 45.8
--- NOTE | 2024-01-22 07:26 | PRE.ANES_ITS ---
ASA Classification* ASA Classification ASA Classification: 3 Assessment & Plan Anesthesia* Anesthesia Assessment Anesthesia Assessment: Discussed sedation and/or anesthesia options, risks, benefits, and alternatives with patient/parents/legal guardian/POA. Questions invited. The patient/parents/legal guardian/POA seems to understand and agrees to proceed with anesthesia plan. Reviewed the physical assessment, medical history, allergy history and patient home medications list prior to surgery/procedure/anesthetic and documented any changes. Performed airway and anesthesia risk assessments. Anesthesia Type Anesthesia Type: MAC Anesthesia Focused Assessment* Temperature: 98.1 F Pulse Rate: 66 Blood Pressure: 159/73 Respiratory Rate: 18 Pulse Ox: 97 Airway Assessment Mouth opens: >3 cm Mallampati Score: II Focused Labs Anesthesia Preop lab: CBC WBC 8.8 K/mm3 (4.4-11.0) 10/02/23 05:15 RBC 4.56 M/mm3 (4.2-5.4) 10/02/23 05:15 Hgb 13.0 g/dL (12.0-15.0) 10/02/23 05:15 Hct 38.9 % (37-47) 10/02/23 05:15 Plt Count 210 K/mm3 (150-450) 10/02/23 05:15 CHEMISTRY Potassium 4.2 mmol/L (3.5-5.1) 10/03/23 03:56 Sodium 134 mmol/L (136-145) L 10/03/23 03:56 Magnesium 3.0 mg/dL (1.6-2.6) H 10/01/23 10:25 Phosphorus 4.7 mg/dL (2.5-4.9) 10/01/23 10:25 BUN 50 mg/dL (7-18) H 10/03/23 03:56 Creatinine 1.50 mg/dL (0.55-1.02) H 10/03/23 03:56 Glucose 235 mg/dL (74-106) H 10/03/23 03:56 POC Glucose 222 mg/dL (74-106) H 10/03/23 12:08 TSH 3.78 uIU/mL (0.358-3.74) H 01/17/23 14:49 COAG PT 14.3 SECONDS (11.7-14.9) 06/21/21 03:34 Pre-Assessment Diagnosis/Proposed Procedure Planned Operative Procedure(s): CYSTO BLADDER BIOPSY WITH FULGERATION Anesthesia History Anesthesia History - solderer barrel ribs: Anesthesia History - solderer barrel ribs Hx Hospitalization No 01/20/24 10:00 Any Problems With Anesthesia No 01/20/24 10:00 Cholinesterase deficiency No 01/20/24 10:00 You/Your Family Experience No 01/20/24 10:00 fever (hyperthermia) with Relationship Recent Exposure to Contagious No 01/22/24 06:49 Disease Does patient have nerve Yes: PATIENT DOES NOT KNOW 01/20/24 10:00 stimulator HOW TO TURN OFF Patient instructed to have device shut off --Does patient have Pacemaker No 01/22/24 06:49 or ICD? When Was Last Pacemaker Check QUESTION #4 FULL TEXT: You/Your Family Experience fever (hyperthermia) with Anesthesia Last Oral Intake Last Oral intake: Last Oral Intake NPO since 05:00 01/22/24 06:49 Meds taken in AM with sips of No 01/22/24 06:49 water? Meds patient instructed to take am of surgery PONV PONV - solderer barrel ribs: PONV - solderer barrel ribs Female Yes 01/20/24 10:00 HX of Motion Sickness No 01/20/24 10:00 HX of N/V After Surgery No 01/20/24 10:00 Non-Smoker Yes 01/20/24 10:00 Duration of Surgery greater Yes 01/20/24 10:00 than 60 minutes Number of Risk Factors 3 01/20/24 10:00 PONV Score Moderate Risk 01/20/24 10:00 Height & Weight Height & Weight: Anesthesia: Height & Weight Height 5 ft 4 in 01/22/24 06:49 Weight: 121 kg 01/22/24 06:49 Body Mass Index (BMI) 45.8 01/22/24 06:49 Respiratory Assessment Respiratory Assessment - solderer barrel ribs: Respiratory Tract Infection Hx - solderer barrel ribs Hx Respiratory Tract Infection No 01/20/24 10:00 STOP Sleep Apnea STOP Sleep Apnea - solderer barrel ribs: STOP Sleep Apnea - solderer barrel ribs Hx Hypertension Yes: CONTROLLED WITH MEDS 01/20/24 10:00 Hx Sleep Apnea Yes 01/20/24 10:00 CPAP Yes: NONCOMPLIANT 01/20/24 10:00 BIPAP No 01/20/24 10:00 Do you snore loudly (louder than talking or can be heard Do you often feel tired/ fatigued/ sleepy during daytime? Has anyone observed you stop breathing during sleep? STOP Results Positive 01/20/24 10:00 QUESTION #5 FULL TEXT : Do you snore loudly (louder than talking or can be heard through closed doors)? 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 Specify any problems Hx of Preganancy in last 3 No 01/20/24 10:00 Months Nurse Filling Out Transfusion DSCHRIBER 01/20/24 10:00 & Questions: Date: 01/20/24 01/20/24 10:00 Time: 10:02 01/20/24 10:00 Patient unable to answer at this time (ie. confused, unrespo /Reproduction History /Reproductive History - solderer barrel ribs: /Reproductive Hx- solderer barrel ribs Hx Now No 01/20/24 10:00 Gestational Age (in weeks): EDC: Hx Hx Para Hx Section SAB No 01/20/24 10:00 Active Medications Active Medications: Current Medications Generic Name Dose Route Start Last Admin Trade Name Freq PRN Reason Stop Dose Admin Cefazolin Sodium 2 gm/ N/A 20 mls @ 400 mls/hr 01/22/24 08:20 IV 01/22/24 08:22 PREOP ONE Insulin Human Lispro 4 unit 01/22/24 07:18 Insulin Lispro 100 Unit/Ml Insuln.Pen SC 01/22/24 07:19 X1 ONE PFSH Medical History Nonadherence to medication Depression Uses wheelchair Bladder disease Back pain Hx of falling Shortness of breath on exertion History of pain when walking History of echocardiogram History of stress test Hypertension History of CHF (congestive heart failure) Pain Uses wheelchair CPAP (continuous positive airway pressure) dependence History of heart attack (HFpEF) heart failure with preserved ejection fraction Wears glasses Wears dentures Insulin dependent diabetes mellitus Walker as ambulation aid Arthritis Pulmonary embolism Restless legs Back pain Dietary restriction History of IBS Gastric reflux Non-smoker On home oxygen therapy COPD (chronic obstructive pulmonary disease) Asthma Shortness of breath on exertion History of edema Hx of transesophageal echocardiography (MARIELLA) for monitoring Cardiology follow-up encounter COVID-19 determined by clinical diagnostic criteria Atherosclerosis of [place] coronary artery of [place] heart without angina pectoris Essential hypertension Dehydration Dehydration with hyponatremia Recurrent falls JILL (acute kidney injury) Carpal tunnel syndrome Seasonal allergies Chronic bronchitis Vitamin D deficiency Hyperlipidemia Diabetic peripheral neuropathy Hypokalemia IBS (irritable bowel syndrome) Insomnia Spinal stenosis of lumbar region DDD (degenerative disc disease), cervical Disequilibrium DM (diabetes mellitus), type 2, uncontrolled GERD (gastroesophageal reflux disease) Gastroenteritis Morbid obesity Atrial septal defect Pulmonary emboli Edema Abnormal echocardiogram SOB (shortness of breath) Obesity (BMI 35.0-39.9 without comorbidity) SHANNON (obstructive sleep apnea) Anxiety and depression Cystitis, acute Sepsis Restless leg syndrome Hypertension DM (diabetes mellitus), type 2, uncontrolled Asthma Home Medications ?Medication ?Instructions ?Recorded ?Last Taken ?Type ropinirole 4 mg tablet 4 mg PO BID RLS 02/23/13 09/30/23 History aspirin 81 mg tablet,delayed 81 mg PO DAILY heart health 07/06/20 09/30/23 History release (Adult Low Dose Aspirin) omeprazole 40 mg capsule,delayed 40 mg PO DAILY 07/06/20 09/30/23 History release metoprolol succinate 100 mg 100 mg PO DAILY 11/09/21 09/30/23 History tablet,extended release 24 hr potassium chloride 20 mEq 20 meq PO DAILY 11/09/21 09/30/23 History tablet,extended release amlodipine 5 mg tablet 5 mg PO DAILY #30 tabs 07/29/22 09/30/23 Rx clonidine HCl 0.1 mg tablet 0.1 mg PO BID 07/29/22 09/30/23 History ezetimibe 10 mg tablet 10 mg PO DAILY #90 TABLETS 09/01/23 09/30/23 Rx hydrocodone-acetaminophen 5-325mg 1 tab PO TID PRN pain 09/24/23 09/30/23 History 5mg-325mg duloxetine 30 mg capsule,delayed 30 mg PO DAILY 10/01/23 09/30/23 History release pregabalin 75 mg capsule 75 mg PO BID 10/01/23 09/30/23 History acetaminophen 500 mg tablet 650 mg (1.3 x 500 mg) PO Q6H PRN 10/03/23 Unknown Rx Pain Score 1-5/10 #0 tabs albuterol sulfate 90 mcg/actuation 2 puff inhalation Q4H PRN 01/01/24 Unknown Rx aerosol inhaler shortness of breath or wheezing #8.5 grams insulin glargine 100 unit/mL (3 50 unit subcut BID 01/12/24 Unknown History mL) subcutaneous pen (Lantus Solostar U-100 Insulin) insulin lispro 100 unit/mL 20 unit subcut BID 01/12/24 Unknown History subcutaneous pen (Humalog KwikPen (U-100) Insulin) albuterol sulfate 2.5 mg/3 mL 2.5 mg inhalation PRN PRN 01/20/24 Unknown History (0.083 %) solution for nebulization shortness of breath or wheezing Allergy/AdvReac Type Severity Reaction Status Date / Time rivaroxaban (From Xarelto) Allergy Intermediate Itching Verified 01/20/24 09:54 Environmental Allergies: Allergy PT UNABLE Verified 01/20/24 09:54 Uncoded TO RESPOND-NEEDS F/U latex Allergy Itching Verified 01/20/24 09:54 pravastatin Allergy Unknown Verified 01/20/24 09:54 codeine AdvReac Severe Itching Verified 01/20/24 09:54 zolpidem (From Ambien) AdvReac Severe Sleep Verified 01/20/24 09:54 walking/talking Family History Father Heart disease Hypertension CAD (coronary artery disease) Arthritis Mother Hypertension Asthma Diabetes Heart disease COPD (chronic obstructive pulmonary disease) Surgical History Hx of hammer toe correction History of toe surgery Hx of left cataract extraction Hx of right cataract extraction History of carpal tunnel surgery of right wrist History of carpal tunnel surgery of left wrist History of cardiac catheterization History of laparoscopic cholecystectomy sciatic nerve cauterization History of laminectomy (~07/2015) History of back surgery (~2018) History of umbilical hernia repair (~08/2012) History of cholecystectomy (~09/2011) History of appendectomy Social History Smoking Status: Never smoker second hand exposure: No alcohol intake: current alcohol intake frequency: holidays/special occasions only Alcohol type: beer and hard liquor substance use type: does not use caffeine: Yes Type: coffee Number of servings: 1 and tea what type of physical activity do you participate in: other details: physical therapy frequency: 1-2 times per week seatbelt use: always do you feel safe at home: Yes Review of Systems (Anesthesia) ROS Narrative System reviewed and no additional complaints, except as documented.
[2024-01-22 07:34] LABS: Bedside Glucose 314 mg/dL (74-106)
[2024-01-22] MEDS: Insulin Lispro 100 UNIT/ML INSULN.PEN SC (07:36)
[2024-01-22 07:46] LABS: Hematocrit 38.1 % (37-47); Hemoglobin 12.2 g/dL (12.0-15.0); Mean Corpuscular Hgb 29.5 pg (27.0-32.0); Mean Corpuscular Volume 92.3 fL (81-99); Mean Platelet Vol. 9.2 fl (6.2-12.0); Platelet Count 235 K/mm3 (150-450); RBC Distribution Width CV 12.7 % (11.6-14.6); RBC Distribution Width SD 43.2 fl (35.1-43.9); Red Blood Count 4.13 M/mm3 (4.2-5.4); White Blood Count 8.8 K/mm3 (4.4-11.0)
[2024-01-22 08:14] LABS: Hemoglobin A1c 11.2 % (3.8-5.6)
--- NOTE | 2024-01-22 08:20 | BLA_PTH ---
PATIENT: ANN PEARCE [place] [facility] [id number] AGE/SX: 73/F ROOM: RE01/22/[address]: Dr. Radha Lu MD : 1950 BED: DIS: 01/22/2024 SPEC #: [id number] RECD: 01/22/24 11:05 STATUS: RONAN RETre #: [id number] DIO: 01/22/24 08:[address]: Radha Lu DEPT: SURGICAL PATHOLOGY RECD BY: Jane Parkinson ENTERED: 01/22/24 12:10 SP TYPE: BLADDER BX OTHR DR: Dr. Kaz Cervantes DO Tissues: Urinary bladder, NOS Procedures: Surgery Specimen Level IV HEADER OPERATION: Bladder biopsy with fulguration PRE-OP DIAGNOSIS: Recurrent urinary tract infections TISSUE SUBMITTED: Bladder biopsy MICROSCOPIC DIAGNOSIS Bladder, biopsy: Fragments of urothelial mucosa with moderate acute and chronic inflammation. Negative for malignancy. See comment. SJ.mr 01/23/2024 COMMENT Eosinophils are also noted, suggestive of interstitial cystitis. Detrusor muscle is not present in the specimen. Correlation with clinical, cystoscopy findings and appropriate follow up are necessary. MICROSCOPIC DESCRIPTION Slides are reviewed. GROSS DESCRIPTION Received in fixative is one container labeled with the patient's name and designated Bladder biopsy. The specimen consists of multiple irregular fragments of light alvarez soft tissue that in aggregate measure 0.5 x 0.2 x 0.1 cm. The specimen is totally submitted in one cassette. 01/22/2024 TC:2 CPT:94630
[2024-01-22 08:21] LABS: Anion Gap 4 (5-15); BUN 23 mg/dL (7-18); BUN/Creat Ratio 22.3 RATIO (10-20); Calcium,Total 9.2 mg/dL (8.5-10.1); Chloride 102 mmol/L (98-107); Creatinine, Serum 1.03 mg/dL (0.55-1.02); EST Glomerular Filtration Rate 56 mL/min (>60); Est Glom Filt Rate - Afr Amer 68 mL/min (>60); Glucose 285 mg/dL (74-106); Potassium 4.7 mmol/L (3.5-5.1); Sodium Level 139 mmol/L (136-145)
[2024-01-22] MEDS: Cefazolin 2 GM in Syringe IV (08:50)
--- NOTE | 2024-01-22 08:51 | DCINST_ITS ---
Discharge Instructions Diet Discharge Diet: No restrictions Activity Discharge Activity: Return to Normal Activity Dressing / Incision Call your doctor if you observe: Fever of 101 or Higher, Inability to urinate and Inability to have a bowel movement Follow Up Care Please Follow Up With: Radha Lu MD When: Appointment in the office next week to discuss results of the biopsy Test Results: Test results from this visit will be discussed in further detail at your follow- up appointment, if applicable. Discharge Plan Admission Attending Provider: Radha Lu Primary Care Provider: Kaz Cervantes Instructions Print Language: Jordanian Discharge Orders/Prescriptions Prescriptions: New oxycodone-acetaminophen [Percocet] 5-325 mg tablet 1 tab PO Q8H PRN (Reason: pain) 2 Days Qty: 6 0RF Continued omeprazole 40 mg capsule,delayed release(DR/EC) 40 mg PO DAILY aspirin [Adult Low Dose Aspirin] 81 mg tablet,delayed release (DR/EC) 81 mg PO DAILY clonidine HCl 0.1 mg tablet 0.1 mg PO BID amlodipine 5 mg tablet 5 mg PO DAILY Qty: 30 11RF hydrocodone-acetaminophen 5-325 mg tablet 1 tab PO TID PRN (Reason: pain) albuterol sulfate 90 mcg/actuation HFA aerosol inhaler 2 puff inhalation Q4H PRN (Reason: shortness of breath or wheezing) Qty: 8.5 11RF insulin glargine [Lantus Solostar U-100 Insulin] 100 unit/mL (3 mL) insulin pen 50 unit subcut BID insulin lispro [Humalog KwikPen Insulin] 100 unit/mL insulin pen 20 unit subcut BID ropinirole 4 MG tablet 4 mg PO BID Patient Comments: restless legs metoprolol succinate 100 mg tablet extended release 24 hr 100 mg PO DAILY potassium chloride 20 mEq Tablet Extended Release 20 meq PO DAILY albuterol sulfate 2.5 mg /3 mL (0.083 %) solution for nebulization 2.5 mg inhalation PRN PRN (Reason: shortness of breath or wheezing) duloxetine 30 mg capsule,delayed release(DR/EC) 30 mg PO DAILY pregabalin 75 mg capsule 75 mg PO BID Patient Comments: PT UNSURE OF DOSE SHE IS TAKING OF THIS acetaminophen 500 mg tablet 650 mg PO Q6H PRN (Reason: Pain Score 1-5/10) Qty: 0 0RF ezetimibe 10 mg tablet 10 mg PO DAILY Qty: 90 3RF Referrals / Follow Up: Kaz Cervantes DO [Primary Care Provider] - Disposition Disposition (needs filled in before D/C Order can be placed): Home, Self Care
--- NOTE | 2024-01-22 09:25 | PCM.POST.ANE ---
Anesthesia: Postop Eval I Current Vital Signs Temperature: 98.6 F Pulse Rate: 64 Blood Pressure: 129/78 Respiratory Rate: 18 Pulse Ox: 96 Assessment Airway patent: Yes Spontaneous unlabored respirations: Yes nausea: No Vomiting: No Anesthesia Complication: No Fluid Hydration Crystalloid volume administer (ml): 10 Total IV fluid infused: 10 Progress Note Anesthesia document: Postop Eval 1 completed: Yes
--- NOTE | 2024-01-22 09:33 | POSTOPAN2_ITS ---
Anesthesia Postop Eval I Sum Postop Eval Completion status Anesthesia document: Postop Eval 1 completed: Yes Anesthesia Postop Eval I Summary Anesthesia Postop Eval I Summary: Anesthesia Postop Eval I: Assessment Summary Airway patent Yes 01/22/24 09:25 [email or web address] Spontaneous unlabored Yes 01/22/24 09:25 LAP [email or web address] respirations Mental status nausea No 01/22/24 09:25 [email or web address] Vomiting No 01/22/24 09:25 [email or web address] Anesthesia Postop Eval I: Fluid Summary Crystalloid volume administer 10 01/22/24 09:25 LAP [email or web address].CSIR (ml) Colloids volume administered ( ml) Blood Product volume administered (ml) Total IV fluid infused 10 01/22/24 09:25 LAP [email or web address].CSIR Anesthesia Postop Eval I: Summary Notes Anesthesia Complication No 01/22/24 09:25 LAP [email or web address] Anesthesia Complication Comment: Post-operative progress note Anesthesia: Postop Eval II Evaluation Mental status: Awake Pain Level: 0 nausea: No Vomiting: No
--- NOTE | 2024-01-22 09:33 | PCM.POSTANE2 ---
Anesthesia Postop Eval I Sum Postop Eval Completion status Anesthesia document: Postop Eval 1 completed: Yes Anesthesia Postop Eval I Summary Anesthesia Postop Eval I Summary: Anesthesia Postop Eval I: Assessment Summary Airway patent Yes 01/22/24 09:25 OPTICAL GLASS [email or web address] Spontaneous unlabored Yes 01/22/24 09:25 OPTICAL GLASS [email or web address] respirations Mental status nausea No 01/22/24 09:25 OPTICAL GLASS [email or web address] Vomiting No 01/22/24 09:25 OPTICAL GLASS [email or web address] Anesthesia Postop Eval I: Fluid Summary Crystalloid volume administer 10 01/22/24 09:25 OPTICAL GLASS [email or web address] (ml) Colloids volume administered ( ml) Blood Product volume administered (ml) Total IV fluid infused 10 01/22/24 09:25 OPTICAL GLASS [email or web address] Anesthesia Postop Eval I: Summary Notes Anesthesia Complication No 01/22/24 09:25 OPTICAL GLASS [email or web address] Anesthesia Complication Comment: Post-operative progress note Anesthesia: Postop Eval II Evaluation Mental status: Awake Pain Level: 0 nausea: No Vomiting: No
--- NOTE | 2024-01-22 09:52 | PCM.OPRPT ---
Operative Report (Standard) Operative Information Surgery/Procedure Performed: Cystoscopy with bladder biopsy and fulguration Surgeon: Radha Lu Date of Procedure: 01/22/24 Procedure Start Time: 09:06 Procedure Stop Time: 09:15 Pre-Operative Diagnosis: Urinary tract infections, bladder lesion x 2 Post-Operative Diagnosis: Same Select all DRAINS/GRAFTS/IMPLANTS that apply: None Type of Anesthesia: MAC Estimated Blood Loss: Minimal Specimen collected: Yes Description of specimen(s) removed: Bladder biopsy x 4 Description of surgery: The patient is a 73-year-old female with urinary tract infections who had an office cystoscopy revealing 2 areas of erythema consistent with possible ulceration. She now presents for biopsy and fulguration for further evaluation and management. Informed consent was obtained. The patient was taken to the operating room and placed on the operating room table. Anesthesia monitored the head, neck, airway, IV access and vital signs throughout the case. Once anesthesia was appropriately administered she was placed into dorsolithotomy position and was prepped and draped in usual sterile fashion. The cystoscope was inserted through the urethra under direct visualization into the urinary bladder. The bladder mucosa was visualized in its entirety revealing 2 areas of erythema with improvement in the tissue health compared to the cystoscopy time in the office. 2 biopsies were taken with flexible biopsy forceps from each area of erythema which was approximately 2 cm in size each. These biopsy sites were then fulgurated with the Bugbee for hemostatic control and tissue treatment. Her bladder was then emptied and she was awakened and taken to the recovery room in good condition. There were no complications during the procedure. Surgical Findings: 2 areas of erythema approximately 2 cm in diameter each, improved appearance from office cystoscopy, no longer consistent with ulceration Home Health Assistant balance weigher: No Complications Complications: No Admit VTE Documentation VTE Present on Admission: Yes VTE Mechan Device Prophylaxis: SCD's VTE Pharm Prophylaxis ordered?: No Reason prophylaxis not ordered: Treatment Not Indicated
[2024-01-22 10:03] LABS: Bedside Glucose 222 mg/dL (74-106)
== END 2024-01-22 10:13 | disposition home or self-care (01) ==
LOC: SDC 06:07 → AC 06:07
PROVIDERS: Anesthesiology; PCP Family Medicine; Referring Provider Urology; Visit Provider Urology
PROC: 0TBB8ZX Excision of Bladder, Via Natural or Artificial Opening Endoscopic, Diagnostic (ICD-10-PCS; CPT 52204; principal; 2024-01-22 08:10)
DX: N30.20 Other chronic cystitis without hematuria (principal); I50.30 Unspecified diastolic (congestive) heart failure; I11.0 Hypertensive heart disease with heart failure; J44.9 Chronic obstructive pulmonary disease, unspecified; E11.9 Type 2 diabetes mellitus without complications; I25.10 Atherosclerotic heart disease of native coronary artery without angina pectoris; E78.5 Hyperlipidemia, unspecified; K21.9 Gastro-esophageal reflux disease without esophagitis; N32.81 Overactive bladder; Z79.899 Other long term (current) drug therapy; Z79.85 Long-term (current) use of injectable non-insulin antidiabetic drugs; N32.89 Other specified disorders of bladder; N39.46 Mixed incontinence; Z79.82 Long term (current) use of aspirin; N30.00 Acute cystitis without hematuria
CPT/HCPCS: 52204; 00910; 80048; 82962; 83036; 85027; 88305; A4216; J2405

== ENCOUNTER → 2024-01-26 | Outpatient (CLI) | payer MEDICARE, SELFPAY ==
[2024-01-26 15:19] LABS: Absolute Lymphocyte Count 1.65 X10^3/uL (0.83-4.51); Absolute Neutrophil Count 5.2 X10^3/uL (2.0-7.7); Basophil# 0.06 X10^3/uL; Basophil% 0.8 % (0-1); Eosinophils% 3.8 % (0-5); Hemoglobin 12.8 g/dL (12.0-15.0); Lymphocyte # 1.65 X10^3/ul (0.83-4.51); Lymphocyte % 20.8 % (19-41); Mean Corpuscular Hgb 29.8 pg (27.0-32.0); Mean Corpuscular Volume 93.2 fL (81-99); Mean Platelet Vol. 9.8 fl (6.2-12.0); Monocyte# 0.53 X10^3/uL; Monocyte% 6.7 % (0-10); NRBC Flagged by Analyzer 0 % (0-5); Neutrophil # 5.17 X10^3/uL (2.7-7.7); Neutrophil % 65.2 % (47-70); Platelet Count 265 K/mm3 (150-450); RBC Distribution Width CV 12.6 % (11.6-14.6); RBC Distribution Width SD 43.2 fl (35.1-43.9); Red Blood Count 4.29 M/mm3 (4.2-5.4); White Blood Count 7.9 K/mm3 (4.4-11.0)
[2024-01-26 16:03] LABS: BNP,B-Type NATRIURETIC PEPTIDE 50.9 pg/mL (0-100)
[2024-01-26 16:04] LABS: AST(SGOT) 19 U/L (15-37); Alanine Aminotransfer ALT/SGPT 22 U/L (13-56); Albumin, Serum 3.3 g/dL (3.2-5.0); Alkaline Phosphatase 77 U/L (45-117); Anion Gap 7 (5-15); BUN 31 mg/dL (7-18); Bilirubin, Direct 0.09 mg/dL (0.00-0.30); Calcium,Total 9.3 mg/dL (8.5-10.1); Chloride 101 mmol/L (98-107); Cholesterol 156 mg/dL (200); Creatinine, Serum 1.24 mg/dL (0.55-1.02); EST Glomerular Filtration Rate 45 mL/min (>60); Est Glom Filt Rate - Afr Amer 55 mL/min (>60); Globulin 3.8 g/dL (2.2-4.2); Glucose 349 mg/dL (74-106); High Density Lipoprotein 56 mg/dL; Potassium 4.6 mmol/L (3.5-5.1); Protein, Total 7.1 g/dL (6.4-8.2); Sodium Level 137 mmol/L (136-145); Triglycerides 101 mg/dL; Very Low Density Lipoprotein 20 mg/dL (5-40)
== END | disposition home or self-care (01) ==
PROVIDERS: PCP Family Medicine; Referring Provider Nurse Practitioner Gerontology; Visit Provider Nurse Practitioner Gerontology
DX: I25.10 Atherosclerotic heart disease of native coronary artery without angina pectoris (principal); E11.69 Type 2 diabetes mellitus with other specified complication; E78.5 Hyperlipidemia, unspecified; R06.09 Other forms of dyspnea
CPT/HCPCS: 36415; 80048; 80061; 80076; 83880; 85025

== ENCOUNTER → 2024-01-27 | Outpatient (CLI) | payer MEDICARE, SELFPAY ==
--- NOTE | 2024-01-27 12:57 | STRESSREP_ITS ---
Stress Test Report Date: 01/27/2024 Procedure: Pharmacologic stress nuclear imaging study Indications: Dyspnea Consent: Per the patient Procedure: The patient underwent pharmacologic (Regadenoson 0.4mg ) evaluation with a peak heart rate of 98 beats per minute (66%predicted maximal heart rate) and a peak blood pressure of 176/80 mmHg. The baseline ECG demonstrated sinus rhythm. The peak pharmacologic ECG demonstrated no ischemic changes. There were no cardiac dysrhythmias pretest, during pharmacologic infusion, or recovery. There was no complaint of chest discomfort during pharmacologic infusion or recovery. The patient was injected with 9.9 millicuries of technetium 99m Cardiolite and subsequently rest SPECT Cardiolite nuclear imaging was obtained in the horizontal long, vertical long, and short axis views. The patient underwent pharmacologic (Regadenoson) evaluation. The patient was injected with 32.1 millicuries of technetium 99m Cardiolite and subsequently stress SPECT Cardiolite nuclear imaging was obtained in the horizontal long, vertical long, and short axis views. A gated Cardiolite study at peak stress was obtained. The examination was stopped secondary to completion of protocol. Rest and stress SPECT Cardiolite nuclear imaging status post realignment, normalization, and attenuation correction demonstrate decreased perfusion post pharmacological stress in the anterior and lateral johnson suggestive of ischemia. There is end systolic thickening and brightening. The gated Cardiolite study demonstrates myocardial thickening and inward wall motion. The reported LVEF is 67%. Impression: 1. Pharmacologic (Regadenoson) evaluation 2. Peak pharmacologic ECG with no ischemic changes. 3. There were no cardiac dysrhythmias pretest, during pharmacologic infusion, or recovery. 5. Reversible perfusion defect of the anterior and lateral wall suggestive of ischemia. 6. The gated Cardiolite study reports an LVEF of 67%. This note was generated with [employer] software. It may contain incorrect words, spelling, and punctuation that were not noted in checking the note before signing.
== END | disposition home or self-care (01) ==
LOC: CVS 07:16
PROVIDERS: PCP Family Medicine; Referring Provider Nurse Practitioner Gerontology; Visit Provider Nurse Practitioner Gerontology
DX: I25.10 Atherosclerotic heart disease of native coronary artery without angina pectoris (principal); R06.09 Other forms of dyspnea
CPT/HCPCS: 78452; 93017; A9500; A4216; J2785

== ENCOUNTER 2024-02-09 07:31 | Day surgery (SDC) | payer MEDICARE, SELFPAY ==
[2024-02-09 08:24] VITALS: BP 154/72; PULSE 72; RESP 16; TEMP 36.1; O2SAT 95; BMI 46.1
[2024-02-09 08:42] VITALS: BP 154/72; PULSE 72; RESP 16; TEMP 36.1; O2SAT 95
--- NOTE | 2024-02-09 08:42 | PRE.ANES_ITS ---
ASA Classification* ASA Classification ASA Classification: 3 Assessment & Plan Anesthesia* Anesthesia Assessment Anesthesia Assessment: Discussed sedation and/or anesthesia options, risks, benefits, and alternatives with patient/parents/legal guardian/POA. Questions invited. The patient/parents/legal guardian/POA seems to understand and agrees to proceed with anesthesia plan. Reviewed the physical assessment, medical history, allergy history and patient home medications list prior to surgery/procedure/anesthetic and documented any changes. Performed airway and anesthesia risk assessments. Anesthesia Type Anesthesia Type: MAC Anesthesia Focused Assessment* Temperature: 97.0 F Pulse Rate: 72 Blood Pressure: 154/72 Respiratory Rate: 16 Pulse Ox: 95 Airway Assessment Mouth opens: >3 cm Mallampati Score: II Focused Labs Anesthesia Preop lab: CBC WBC 7.9 K/mm3 (4.4-11.0) 01/26/24 12:40 RBC 4.29 M/mm3 (4.2-5.4) 01/26/24 12:40 Hgb 12.8 g/dL (12.0-15.0) 01/26/24 12:40 Hct 40.0 % (37-47) 01/26/24 12:40 Plt Count 265 K/mm3 (150-450) 01/26/24 12:40 CHEMISTRY Potassium 4.6 mmol/L (3.5-5.1) 01/26/24 12:40 Sodium 137 mmol/L (136-145) 01/26/24 12:40 Magnesium 3.0 mg/dL (1.6-2.6) H 10/01/23 10:25 Phosphorus 4.7 mg/dL (2.5-4.9) 10/01/23 10:25 BUN 31 mg/dL (7-18) H 01/26/24 12:40 Creatinine 1.24 mg/dL (0.55-1.02) H 01/26/24 12:40 Glucose 349 mg/dL (74-106) H 01/26/24 12:40 POC Glucose 222 mg/dL (74-106) H 01/22/24 09:43 TSH 3.78 uIU/mL (0.358-3.74) H 01/17/23 14:49 COAG PT 14.3 SECONDS (11.7-14.9) 06/21/21 03:34 Pre-Assessment Diagnosis/Proposed Procedure Planned Operative Procedure(s): LEFT SHOULDER INTRA-ARTICULAR STEROID INJECTION UNDER FLUOROSCOPY Anesthesia History 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 When Was Last Pacemaker Check QUESTION #4 FULL TEXT: You/Your Family Experience fever (hyperthermia) with Anesthesia Last Oral Intake Last Oral intake: Last Oral Intake NPO since 00:00 02/09/24 08:24 Meds taken in AM with sips of No 02/09/24 08:24 water? Meds patient instructed to take am of surgery PONV PONV - fire control system installer: PONV - fire control system installer Female Yes 02/04/24 10:52 HX of Motion Sickness No 02/04/24 10:52 HX of N/V After Surgery No 02/04/24 10:52 Non-Smoker Yes 02/04/24 10:52 Duration of Surgery greater No 02/04/24 10:52 than 60 minutes Number of Risk Factors 2 02/04/24 10:52 PONV Score Moderate Risk 02/04/24 10:52 Height & Weight Height & Weight: Anesthesia: Height & Weight Height 5 ft 4 in 02/09/24 08:24 Weight: 122.016 kg 02/09/24 08:24 Body Mass Index (BMI) 46.1 02/09/24 08:24 Respiratory Assessment Respiratory Assessment - fire control system installer: Respiratory Tract Infection Hx - fire control system installer Hx Respiratory Tract Infection No 02/04/24 10:52 STOP Sleep Apnea STOP Sleep Apnea - fire control system installer: STOP Sleep Apnea - fire control system installer Hx Hypertension Yes: CONTROLLED WITH MEDS 02/04/24 10:52 Hx Sleep Apnea Yes 02/04/24 10:52 CPAP Yes: NONCOMPLIANT 02/04/24 10:52 BIPAP No 02/04/24 10:52 Do you snore loudly (louder than talking or can be heard Do you often feel tired/ fatigued/ sleepy during daytime? Has anyone observed you stop breathing during sleep? STOP Results Positive 02/04/24 10:52 QUESTION #5 FULL TEXT : Do you snore loudly (louder than talking or can be heard through closed doors)? Tobacco Use History Tobacco Use History - fire control system installer: Tobacco Use History - fire control system installer Tobacco Use Non-smoker 07/21/20 11:15 Smoking Status Never smoker 02/04/24 10:52 Hx Tobacco Use No 02/04/24 10:52 Years Smoking Packs Smoked per Day Smoking Cessation Date was within the last 15 years Hx Smoking Cessation Date Hx Smoking Cessation No 02/04/24 10:52 Counseling Hematologic Medial History Hematologic Hx - fire control system installer: Hematologic Medical Hx - it assistant Hx of Blood Transfusion No 02/04/24 10:52 Hx of Transfusion in last 3 No 02/04/24 10:52 Months Date of Last Transfusion (if within last 3 months) Ever experience any problems No 02/04/24 10:52 with transfusion(s)? Specify any problems Hx of Preganancy in last 3 No 02/04/24 10:52 Months Nurse Filling Out Transfusion DSCHRIBER 02/04/24 10:52 & Questions: Date: 02/04/24 02/04/24 10:52 Time: 10:55 02/04/24 10:52 Patient unable to answer at this time (ie. confused, unrespo /Reproduction History /Reproductive History - fire control system installer: /Reproductive Hx- fire control system installer Hx Now No 02/04/24 10:52 Gestational Age (in weeks): EDC: Hx Hx Para Hx Section SAB No 02/04/24 10:52 PFSH Medical History Lesion of bladder Nonadherence to medication Depression Uses wheelchair Bladder disease Back pain Hx of falling Shortness of breath on exertion History of pain when walking History of echocardiogram History of stress test Hypertension History of CHF (congestive heart failure) Pain Uses wheelchair CPAP (continuous positive airway pressure) dependence History of heart attack (HFpEF) heart failure with preserved ejection fraction Wears glasses Wears dentures Insulin dependent diabetes mellitus Walker as ambulation aid Arthritis Pulmonary embolism Restless legs Back pain Dietary restriction History of IBS Gastric reflux Non-smoker On home oxygen therapy COPD (chronic obstructive pulmonary disease) Asthma Shortness of breath on exertion History of edema Hx of transesophageal echocardiography (MARIELLA) for monitoring Cardiology follow-up encounter COVID-19 determined by clinical diagnostic criteria Atherosclerosis of [place] coronary artery of [place] heart without angina pectoris Essential hypertension Dehydration Dehydration with hyponatremia Recurrent falls JILL (acute kidney injury) Carpal tunnel syndrome Seasonal allergies Chronic bronchitis Vitamin D deficiency Hyperlipidemia Diabetic peripheral neuropathy Hypokalemia IBS (irritable bowel syndrome) Insomnia Spinal stenosis of lumbar region DDD (degenerative disc disease), cervical Disequilibrium DM (diabetes mellitus), type 2, uncontrolled GERD (gastroesophageal reflux disease) Gastroenteritis Morbid obesity Atrial septal defect Pulmonary emboli Edema Abnormal echocardiogram SOB (shortness of breath) Obesity (BMI 35.0-39.9 without comorbidity) SHANNON (obstructive sleep apnea) Anxiety and depression Cystitis, acute Sepsis Restless leg syndrome Hypertension DM (diabetes mellitus), type 2, uncontrolled Asthma Home Medications ?Medication ?Instructions ?Recorded ?Last Taken ?Type ropinirole 4 mg tablet 4 mg PO BID RLS 02/23/13 02/09/24 History aspirin 81 mg tablet,delayed 81 mg PO DAILY [facility] 07/06/20 02/06/24 History release (Adult Low Dose Aspirin) omeprazole 40 mg capsule,delayed 40 mg PO DAILY 07/06/20 02/09/24 History release metoprolol succinate 100 mg 100 mg PO DAILY 11/09/21 02/09/24 History tablet,extended release 24 hr potassium chloride 20 mEq 20 meq PO DAILY 11/09/21 09/30/23 History tablet,extended release amlodipine 5 mg tablet 5 mg PO DAILY #30 tabs 07/29/22 02/09/24 Rx clonidine HCl 0.1 mg tablet 0.1 mg PO BID 07/29/22 02/09/24 History ezetimibe 10 mg tablet 10 mg PO DAILY #90 TABLETS 09/01/23 02/08/24 Rx duloxetine 30 mg capsule,delayed 30 mg PO DAILY 10/01/23 02/09/24 History release pregabalin 75 mg capsule 75 mg PO BID 10/01/23 02/09/24 History acetaminophen 500 mg tablet 650 mg (1.3 x 500 mg) PO Q6H PRN 10/03/23 Unknown Rx Pain Score 1-5/10 #0 tabs albuterol sulfate 90 mcg/actuation 2 puff inhalation Q4H PRN 01/01/24 Unknown Rx aerosol inhaler shortness of breath or wheezing #8.5 grams insulin glargine 100 unit/mL (3 50 unit subcut BID 01/12/24 Unknown History mL) subcutaneous pen (Lantus Solostar U-100 Insulin) insulin lispro 100 unit/mL 20 unit subcut BID 01/12/24 Unknown History subcutaneous pen (Humalog KwikPen (U-100) Insulin) albuterol sulfate 2.5 mg/3 mL 2.5 mg inhalation PRN PRN 01/20/24 Unknown History (0.083 %) solution for nebulization shortness of breath or wheezing vibegron 75 mg tablet (Gemtesa) 75 mg PO DAILY 02/04/24 02/09/24 History Allergy/AdvReac Type Severity Reaction Status Date / Time rivaroxaban (From Xarelto) Allergy Intermediate Itching Verified 02/09/24 08:21 Environmental Allergies: Allergy PT UNABLE Verified 02/09/24 08:21 Uncoded TO RESPOND-NEEDS F/U latex Allergy Itching Verified 02/09/24 08:21 pravastatin Allergy Unknown Verified 02/09/24 08:21 codeine AdvReac Severe Itching Verified 02/09/24 08:21 zolpidem (From Ambien) AdvReac Severe Sleep Verified 02/09/24 08:21 walking/talking Family History Father Heart disease Hypertension CAD (coronary artery disease) Arthritis Mother Hypertension Asthma Diabetes Heart disease COPD (chronic obstructive pulmonary disease) Surgical History Hx of cystoscopy Hx of hammer toe correction History of toe surgery Hx of left cataract extraction Hx of right cataract extraction History of carpal tunnel surgery of right wrist History of carpal tunnel surgery of left wrist History of cardiac catheterization History of laparoscopic cholecystectomy sciatic nerve cauterization History of laminectomy (~07/2015) History of back surgery (~2018) History of umbilical hernia repair (~08/2012) History of cholecystectomy (~09/2011) History of appendectomy Social History Smoking Status: Never smoker second hand exposure: No alcohol intake: current alcohol intake frequency: holidays/special occasions only Alcohol type: beer and hard liquor substance use type: does not use caffeine: Yes Type: coffee Number of servings: 1 and tea what type of physical activity do you participate in: other details: physical therapy frequency: 1-2 times per week seatbelt use: always do you feel safe at home: Yes Review of Systems (Anesthesia) ROS Narrative System reviewed and no additional complaints, except as documented.
--- NOTE | 2024-02-09 08:50 | RAD_ITS ---
STUDY: X-RAY - LEFT SHOULDER REASON FOR EXAM: Female, 73 years old. INJECTION, LEFT SHOULDER TECHNIQUE: 1 view(s) of the shoulder. COMPARISON: None. FINDINGS: Single view of the left shoulder were obtained on a C-arm for shoulder injection. Image was obtained for documentation only. Fluoroscopy time: 1.7 seconds. Number of fluoroscopic images: 1. Radiation dose: 0.24 mGy. RAD/Fluoro Guided Needle Placement IMPRESSION: Intraprocedural exam as described above. Electronically Signed: Adilson Yo MD at 12:40 EST ,
[2024-02-09 08:53] LABS: Bedside Glucose 142 mg/dL (74-106)
[2024-02-09] MEDS: Lidocaine 1% (5 ml sdv) 5 ML Vial (09:13)
[2024-02-09 09:41] VITALS: BP 169/94; BP 189/88; BP 190/84; O2SAT 97; O2SAT 98
[2024-02-09] MEDS: MethylPREDNISolone Acetate 40 MG/ML Vial (09:43)
[2024-02-09] MEDS: Bupivacaine 0.25% 30 ML Vial (09:44)
[2024-02-09 10:00] VITALS: BP 155/85; PULSE 68; RESP 18; TEMP 36.3; O2SAT 97
--- NOTE | 2024-02-09 10:00 | OP.PCM_ITS ---
Operative Report (Standard) Operative Information Surgery/Procedure Performed: Left shoulder intra-articular steroid injection under fluoroscopic guidance Surgeon: Martir Renae Date of Procedure: 02/09/24 Procedure Start Time: : Procedure Stop Time: :03 Pre-Operative Diagnosis: Osteoarthritis of the left shoulder Post-Operative Diagnosis: Osteoarthritis of the left shoulder Select all DRAINS/GRAFTS/IMPLANTS that apply: None Type of Anesthesia: Local Estimated Blood Loss: < 1 cc Specimen collected: No Description of surgery: PREOPERATIVE DIAGNOSIS: Osteoarthritis of the left shoulder. POSTOPERATIVE DIAGNOSIS: Osteoarthritis of the left shoulder. PROCEDURE PERFORMED: Left shoulder intraarticular steroid injection under fluoroscopic guidance. ANESTHESIA: Local BLOOD LOSS: Minimal. COMPLICATIONS: None. DESCRIPTION OF PROCEDURE: History and physical of today was reviewed. Risks and benefits of the procedure were explained. The patient understood and agreed to proceed. Informed consent was obtained. IV inserted per routine protocol. The patient was taken to the operating room and placed in the supine position. The left shoulder area was prepped and draped in a sterile fashion using iodine x3. Under fluoroscopic guidance on AP view, the left shoulder joint was visualized. The skin and subcutaneous tissue was anesthetized with approximately 1 mL of 1% lidocaine using a 25-gauge regular needle at the anterior shoulder joint area. Under direct visualization with fluoroscopy on AP view, using a 22-gauge 3-1/2-inch spinal needle, the needle was advanced via the skin directed towards the intraarticular position at the supraspinatus level. Once the tip of the needle was at the vicinity of the shoulder joint, after negative aspiration for blood, positive aspiration for synovial fluid, a total of 1 mL of contrast was injected to confirm correct placement of the needle as well as anterior and posterior spread of the contrast at the shoulder joint. Cephalocaudal spread as well was visualized through the arthrogram. After confirmation on AP as well as oblique view and repeated negative aspiration for blood, a total of 4 mL of preservative-free 0.25% Marcaine with 40 mg of Depo- Medrol was injected easily. The needle was then removed intact. The patient experienced no sign or symptoms of intravascular injection. The patient experienced no paresthesia. The procedure was completed without any apparent difficulty or any complications. The patient appeared to tolerate it well. Assessment and plan: This is a 73-year-old female with osteoarthritis of the left shoulder status post left shoulder intra-articular steroid injection under fluoroscopic guidance, patient will continue her current medications, patient will follow-up in approximately 2 weeks for reevaluation. Surgical Findings: see Candy Cutter Machine wardrobe coordinator: No Complications Complications: No Admit VTE Documentation VTE Present on Admission: No VTE Pharm Prophylaxis ordered?: No
== END 2024-02-09 10:21 | disposition home or self-care (01) ==
LOC: SDC 07:33 → AC 08:05
PROVIDERS: PCP Family Medicine; Referring Provider Anesthesiology Pain Medicine; Visit Provider Anesthesiology Pain Medicine
PROC: 3E0U3GC Introduction of Other Therapeutic Substance into Joints, Percutaneous Approach (ICD-10-PCS; CPT 20610; principal; 2024-02-09 09:45)
DX: M19.012 Primary osteoarthritis, left shoulder (principal); Z79.4 Long term (current) use of insulin; Z79.82 Long term (current) use of aspirin; Z79.899 Other long term (current) drug therapy
CPT/HCPCS: 20610; 01991; 76000; 77002; 82962; A4216; J2405

== ENCOUNTER → 2024-02-10 | Outpatient (CLI) | payer MEDICARE, SELFPAY ==
[2024-02-10 18:12] LABS: Prothrombin Time (Protime)PT. 12.9 SECONDS (11.7-14.9)
== END | disposition home or self-care (01) ==
LOC: MTLAB 14:52
PROVIDERS: PCP Family Medicine; Referring Provider Nurse Practitioner Gerontology; Visit Provider Nurse Practitioner Gerontology
DX: I25.10 Atherosclerotic heart disease of native coronary artery without angina pectoris (principal)
CPT/HCPCS: 36415; 85610

== ENCOUNTER 2024-02-17 06:48 | Day surgery (SDC) | payer MEDICARE, SELFPAY ==
--- NOTE | 2024-02-04 16:03 | HP.PCM_ITS ---
History and Physical Date of Admission: 02/17/24 ANN PEARCE, is a 73 year old white female who presents today for a cardiac catheterization following an abnormal stress test. She has a history of atrial septal defect versus PFO, shortness of breath/dyspnea, pulmonary emboli, bilateral lower extremity edema, hypertension, obstructive sleep apnea with CPAP therapy, and obesity. She was evaluated at [facility] in October 2017. She underwent a left and right heart catheterization along with a cardiac MRI. After testing, it was decided that her shunt did not need closure. Her medications were adjusted. Patient was hospitalized July 24, 2021 for a non-ST MO that was felt to be a type II event. Acute heart failure with preserved ejection fraction and hypokalemia. Her stress test from 09/04/2021 was negative for ischemia. From a cardiac standpoint, the patient is doing well. She presents to the office today in a wheel chair. She does acknowledge occasional palpitation. She denies chest pain, pressure or heaviness. She does acknowledge SOB with exertion, and orthopnea. She denies PND. She does not have bleeding issues; no blood in urine, stool or nosebleeds. She does acknowledge fatigue. She denies myalgias, or claudication. She does acknowledge bilateral lower extremity edema, and weight gain. She denies dizziness, lightheadedness, syncopal or near syncopal episodes, and headaches. Intake Vital Signs See EMR Allergies See EMR Medications See EMR [facility] Medical History Nonadherence to medication Dehydration with hyponatremia Depression History of pressure injury of skin Uses wheelchair Bladder disease Hypertension Back pain Blackout Hx of falling Shortness of breath on exertion History of pain when walking History of echocardiogram History of stress test Hypertension History of CHF (congestive heart failure) History of heart attack Pain Uses wheelchair Difficulty chewing Sleep apnea CPAP (continuous positive airway pressure) dependence History of heart attack Acute respiratory failure with hypoxia (HFpEF) heart failure with preserved ejection fraction Bacteremia Wears glasses Wears dentures Insulin dependent diabetes mellitus Walker as ambulation aid Arthritis Pulmonary embolism Restless legs Back pain Difficulty swallowing Dietary restriction History of IBS Gastric reflux Non-smoker On home oxygen therapy COPD (chronic obstructive pulmonary disease) Asthma Shortness of breath on exertion History of edema Hx of transesophageal echocardiography (MARIELLA) for monitoring History of stress test History of echocardiogram Cardiology follow-up encounter COVID-19 determined by clinical diagnostic criteria Atherosclerosis of [place] coronary artery of qu[place] heart without angina pectoris Essential hypertension Dehydration Recurrent falls JILL (acute kidney injury) Carpal tunnel syndrome Seasonal allergies Chronic bronchitis Vitamin D deficiency Hyperlipidemia Diabetic peripheral neuropathy Hypokalemia IBS (irritable bowel syndrome) Insomnia Spinal stenosis of lumbar region DDD (degenerative disc disease), cervical Disequilibrium DM (diabetes mellitus), type 2, uncontrolled GERD (gastroesophageal reflux disease) Gastroenteritis Morbid obesity Atrial septal defect Pulmonary emboli Edema Abnormal echocardiogram History of nuclear stress test (~10/2016) History of echocardiogram (~01/2017) SOB (shortness of breath) Obesity (BMI 35.0-39.9 without comorbidity) SHANNON (obstructive sleep apnea) Anxiety and depression Cystitis, acute Sepsis Restless leg syndrome Hypertension DM (diabetes mellitus), type 2, uncontrolled Asthma Surgical History History of toe surgery Hx of left cataract extraction Hx of right cataract extraction History of carpal tunnel surgery of right wrist History of carpal tunnel surgery of left wrist History of cardiac catheterization History of laparoscopic cholecystectomy History of carpal tunnel surgery of left wrist sciatic nerve cauterization History of laminectomy (~07/2015) History of back surgery (~2018) History of umbilical hernia repair (~08/2012) History of cholecystectomy (~09/2011) History of appendectomy Family History Father Heart disease Hypertension CAD (coronary artery disease) ArthritisMother Hypertension Asthma Diabetes Heart disease COPD (chronic obstructive pulmonary disease) Social History Smoking Status: Never smoker second hand exposure: No alcohol intake: current alcohol intake frequency: holidays/special occasions only Alcohol type: beer and hard liquor substance use type: does not use caffeine: Yes Type: coffee Number of servings: 1 and tea what type of physical activity do you participate in: other details: physical therapy frequency: 1-2 times per week seatbelt use: always do you feel safe at home: Yes ROS Const Const: Positive for fatigue; Negative for weakness, fever(s), headache(s), chills, frequent falls, weight gain or weight loss Eyes Eyes: Negative for blind spots, loss of peripheral vision, transient loss of vision, blurry vision, change in vision, double vision, floaters or tunnel vision ENT ENT: Negative for headache(s), dizziness, Nosebleed/epistaxis, balance problems or neck pain Cardio Chest Pain: No Palpitations: Yes (occasional) Edema: Bilateral Muscle aches with walking: None Resp Respiratory: Positive for SOB with activity and SOB orthopnea\SOB lying down; Negative for SOB at rest GI GI: Negative nausea, vomiting, heartburn, bloating, vomiting blood/hematemesis, bright, red blood in stools or black,tarry stools Musc Musc: Negative for muscle aches/ myalgia, muscle weakness, joint pain or balance problems Neuro Neuro: Negative for dizziness, lightheadedness, near syncope, syncope, orthostatic symptoms, frequent falls, headache(s), weakness, blurry vision or double vision Jose Antonio Hematologic/Lymphatic: Negative for easy bleeding or easy bruising Endo Endo: Positive for fatigue Cardiology Exam Const Appearance: cooperative, healthy appearing, comfortable, no acute distress and well developed Nutritional Appearance: obese Orientation: alert, awake and oriented x3 Limitations: physical limitations (in WC-left surgical boot on left foot) Head Head: normal to inspection Ears: hearing grossly normal bilaterally Nose: external nose normal Face and Sinus: face symmetric Eyes General: appearance normal, both eyes and all related structures Eyelids: eyelids normal Conjunctivae: conjunctivae normal Pupils: PERRL EOM: EOM intact bilaterally Neck Neck: normal visual inspection and trachea midline; Negative no JVD Carotids: Negative bruit Chest Chest inspection: normal inspection of the chest Auscultation: Bilateral: Diminished Lung Sounds Cardio Palpation: normal PMI Rate: regular rate Rhythm: regular rhythm Heart sounds: S1 normal and S2 normal; Negative rub, gallop or murmur GI GI: normal to inspection, soft and obese Neuro General: patient alert, patient awake, patient oriented x3 and CN's II-XI intact bilaterally Extremities Pulses: Normal: Right Radial Pulse and Left Radial Pulse and Diminished: Right Posterior Tibial Pulse and Left Posterior Tibial Pulse Lower Extremity Edema: Trace: Bilateral Psych Psychological: normal affect Supplemental Info Supplemental Information Stress test 09/04/2021: Interpretation: Rest and stress SPECT Cardiolite nuclear imaging status post realignment, normalization, and attenuation correction demonstrate relative uniform tracer uptake and myocardial perfusion appearing within normal limits. There is end systolic thickening and brightening. The gated Cardiolite study demonstrates myocardial thickening and inward wall motion. The reported LVEF is 55%. Impression: 1. Rest and stress SPECT Cardiolite nuclear imaging demonstrate relative uniform tracer uptake and myocardial perfusion appearing within normal limits. 2. The gated Cardiolite study reports an LVEF of 55%. Echocardiogram 07/16/2022: Interpretation Summary The estimated ejection fraction is 60 %. No evidence for diastolic dysfunction. Echocardiogram 05/2021: The estimated ejection fraction is 60 %. No evidence for diastolic dysfunction. Aortic sclerosis, no stenosis. Echocardiogram 08/17/2020: Interpretation Summary The study was technically difficult. Contrast injection was performed. Based upon the 2D echocardiographic and contrast enhanced images obtained there appears to be grossly normal left ventricular size, wall motion, and systolic function. The estimated ejection fraction is 55 %. Trivial mitral valve insufficiency. Trivial tricuspid valve insufficiency. Mild focal aortic valve calcification. Trivial pulmonic valve insufficiency. Mildly dilated aortic root. Right ventricular systolic pressure estimated to be 45 mmHg. There is evidence of diastolic dysfunction. Transthoracic Echocardiogram from 06/22/2018: Interpretation Summary Normal LV size. Left ventricular systolic function is normal. The estimated ejection fraction is 60%. Stage I diastolic dysfunction. Mild to moderate (1?2+) tricuspid valve insufficiency. Pulmonary artery systolic pressure is 47 mmHg. Echocardiogram from January 2017 showed an estimated ejection fraction 65%, mildly dilated right ventricle, trivial MR, trivial TR, positive agitated saline contrast study for an intra-atrial shunt bidirectional, echocardiographic images demonstrating findings compatible with a hypermobile intra-atrial septum, and a vague mobile echodensity in the right atrium of certain certain etiology. Cardiovascular stress test from October 2016 was negative for stress-induced myocardial ischemia. Pulmonary function test from February 2018 showed irreversible severe large airway obstructive ventilatory defect with associated hyperinflation, air trapping, and reduction in diffusing capacity. Transesophageal echocardiogram from 04/08/2017: Interpretation Summary Left ventricular systolic function is normal. The estimated ejection fraction is 60 %. The left atrium is mildly enlarged. There is no sponatenous contrast in the left atrium. No thrombus is detected in the left atrial appendage. Probable chiari network. (Prominent) Mild (1+) mitral valve insufficiency. Mild tricuspid valve insufficiency. Positive color flow doppler for bidirectional interatrial shunt (predominantly left to right) appearing c/w a prominent PFO. Positive agitated saline contrast study for a right to left interatrial shunt c/w PFO. Mild atherosclerosis of the descending aorta. Heart catheterization from October 2017 at [facility] showed 30% distal left main disease, 20% proximal RCA disease, 40% proximal and mid LAD disease, and 20% proximal LCx. She was noted to have mild pulmonary hypertension secondary to left heart diastolic dysfunction. ASD closure was not recommended due to lack of significant shunt and high diastolic filling pressure. Cardiac MRI in October 2017 at [facility] showed no sizable intra-cardiac shunt volume or signs of RV overload, normal pulmonary venous drainage, LV concentric remodeling with mid wall fibrosis and intramyocardial fat, and preserved ejection fraction. Assessment and Plan Assessment and Plan (1) Coronary artery disease: Status: Chronic Plan: Patient has a history of coronary artery disease. Her cardiac catheterization from 2018 was reviewed. Her most recent stress test was abnormal. She does acknowledge dyspnea on exertion. Will proceed with a cardiac catheterization. Depending on results, further recommendations will be made. (2) SHARMA (dyspnea on exertion): Status: Acute Plan: Patient continues to have dyspnea on exertion. Her most recent stress test was abnormal. She does acknowledge dyspnea on exertion. Will proceed with a cardiac catheterization. Depending on results, further recommendations will be made.
[2024-02-16 09:03] VITALS: BMI 45.3
--- NOTE | 2024-02-17 09:15 | CL.D_ITS ---
Patient Name: ANN PEARCE Study Date: 02/17/2024 Performing: Aparna Penny MD Ht: 64 inches 162.56 cm : 1950 Wt: 264 lbs 119.75 kg Age: 73 Gender: female BSA: 2.2 PROCEDURE(S) PERFORMED [id number])C/COR CLINICAL PROFILE AND INDICATIONS Indications: Stable Known CAD Heart Failure: None Stress/Imaging Stress Test w/SPECT MPI: Yes Result: Positive Intermediate RiskStress Test with SPECT MPI: Positive Intermediate Risk Angina Classification Anginal Classification w/in 2 Weeks: CCS II CAD Presentations: Other: Dyspnea CONCLUSIONS 80-90% distal LMCA 60% distal RCA RECOMMENDATIONS Surgery consult for coronary revascularization DESCRIPTION OF PROCEDURE The patient arrived to the procedure lab. The risks and benefits of the procedure as well as a full description of our services here and current unavailability of surgical backup were fully explained to the patient and/or their significant other prior to the catheterization. The Timeout was completed, verifying the correct patient and procedure. The patient's procedural site was prepped and draped in the usual fashion. Local anesthetic was given subcutaneously to right radial region with Lidocaine 2%. Using a modified Seldinger technique, arterial access was obtained via the right radial artery, a 6Fr sheath was inserted. Left Coronary Artery selective angiography was performed in multiple views using a 5 Fr. 4.0 [place] catheter. Right Coronary Artery selective angiography was then performed in multiple views using a 5 Fr. 4.0 [place] catheter.The arterial sheath was pulled and a TR Band was applied for hemostasis 10 ml of air CORONARY ANGIOGRAPHY DOMINANCE: Right Dominant LEFT MAIN: Eccentric Calcified 90% Distal lesion in LMCA LEFT ANTERIOR DESCENDING ARTERY: LAD: Calcified 70% Proximal lesion in LAD Calcified 80% Mid lesion in LAD RIGHT CORONARY ARTERY: RCA: Tubular 60% Distal lesion in RCA COMPLICATIONS No Complications PROCEDURE MEDICATIONS Fentanyl 50 mcg IV Versed 1 mg IV Oxygen: 2 L/min via nasal cannula Aspirin (325mg) 1 Tabs PO @ 02/17/2024 07:12:10 Heparin given IA 02/17/2024 08:42:20 Verapamil 2.5mg, Ntg 200mcgs, 2000 units of Heparin given IA 02/17/2024 08:42:20 IV Bolus: .9 NaCl 250 ml total 02/17/2024 08:42:57 SUMMARY OF HEMODYNAMIC DATA Time AIR REST ECG 07:10:23 AO 121/63 (85) SA 08:44:19 AO 125/65 (88) 08:44:45 Signed By Aparna Penny MD On 02/17/2024 09:14:44 Aparna Penny MD
== END 2024-02-17 10:20 | disposition home or self-care (01) ==
PROVIDERS: PCP Family Medicine; Referring Provider Internal Medicine Cardiovascular Disease; Visit Provider Internal Medicine Cardiovascular Disease
DX: I25.10 Atherosclerotic heart disease of native coronary artery without angina pectoris (principal); I11.0 Hypertensive heart disease with heart failure; I50.32 Chronic diastolic (congestive) heart failure; J44.9 Chronic obstructive pulmonary disease, unspecified; E66.01 Morbid (severe) obesity due to excess calories; E11.42 Type 2 diabetes mellitus with diabetic polyneuropathy; E78.5 Hyperlipidemia, unspecified; R94.39 Abnormal result of other cardiovascular function study; K21.9 Gastro-esophageal reflux disease without esophagitis; R06.00 Dyspnea, unspecified
CPT/HCPCS: 93454; 99152; 99153; J7040; Q9967; C1769; C1894

== ENCOUNTER 2024-05-20 11:16 | Inpatient (IN) | payer MEDICARE, SELFPAY ==
[2024-05-20] VITALS (22 sets, daily range): BP systolic 116–200; BP diastolic 63–100; PULSE 78–108; RESP 18–29; TEMP 36.9–37.4; O2SAT 91–98; BMI 43.9; BMI 43.0
--- NOTE | 2024-05-20 11:24 | EKG12_ITS ---
Test Reason : SOB Blood Pressure : */* mmHG Vent. Rate : 91 BPM Atrial Rate : 91 BPM P-R Int : 234 ms QRS Dur : 148 ms QT Int : 422 ms P-R-T Axes : 38 -33 94 degrees QTcB Int : 519 ms Sinus rhythm with 1st degree A-V block Left axis deviation Left bundle branch block Abnormal ECG Confirmed by Mele Gilbert ([id number]), restaurant expeditor JAM RILEY ([id number]) on 05/24/2024 9:44:00 AM Referred By: Kali Pineda Confirmed By: Mele Gilbert
--- NOTE | 2024-05-20 11:37 | ED.VIS.DYS ---
HPI History of Present Illness Chief Complaint: Shortness of Breath Informant: patient Onset/Context/Timing Onset: Hours (1) Context: sudden Timing: Continuous Quality: Positive for Orthopnea Worsened by: Lying flat Relieved by: Nothing Associated Symptoms rhinorrhea; Negative for cough, post nasal drip, fever, sore throat, chills, clear sputum, white sputum, yellow sputum or green sputum Chest Pain: Positive for None Narrative Narrative: Patient presents with shortness of breath that began approximately 1 hour prior to arrival. Patient states it began rather suddenly. Patient states that has been constant. Patient states that it is worse when she lays flat. Patient says nothing seems to help with it. Patient admits to some rhinorrhea. Patient denies any chest pain. Patient denies any sore throat. Patient denies any fevers or chills. Patient admits to some urinary frequency. Patient denies abdominal pain, nausea, or vomiting. [facility] Medical History Lesion of bladder Nonadherence to medication Depression Uses wheelchair Bladder disease Back pain Hx of falling Shortness of breath on exertion History of pain when walking History of echocardiogram History of stress test Hypertension History of CHF (congestive heart failure) Pain Uses wheelchair CPAP (continuous positive airway pressure) dependence History of heart attack (HFpEF) heart failure with preserved ejection fraction Wears glasses Wears dentures Insulin dependent diabetes mellitus Walker as ambulation aid Arthritis Pulmonary embolism Restless legs Back pain Dietary restriction History of IBS Gastric reflux Non-smoker On home oxygen therapy COPD (chronic obstructive pulmonary disease) Asthma Shortness of breath on exertion History of edema Hx of transesophageal echocardiography (MARIELLA) for monitoring Cardiology follow-up encounter COVID-19 determined by clinical diagnostic criteria Atherosclerosis of [place] coronary artery of [place] heart without angina pectoris Essential hypertension Dehydration Dehydration with hyponatremia Recurrent falls JILL (acute kidney injury) Carpal tunnel syndrome Seasonal allergies Chronic bronchitis Vitamin D deficiency Hyperlipidemia Diabetic peripheral neuropathy Hypokalemia IBS (irritable bowel syndrome) Insomnia Spinal stenosis of lumbar region DDD (degenerative disc disease), cervical Disequilibrium DM (diabetes mellitus), type 2, uncontrolled GERD (gastroesophageal reflux disease) Gastroenteritis Morbid obesity Atrial septal defect Pulmonary emboli Edema Abnormal echocardiogram SOB (shortness of breath) Obesity (BMI 35.0-39.9 without comorbidity) SHANNON (obstructive sleep apnea) Anxiety and depression Cystitis, acute Sepsis Restless leg syndrome Hypertension DM (diabetes mellitus), type 2, uncontrolled Asthma Home Medications ?Medication ?Instructions ?Recorded ?Last Taken ?Type ropinirole 4 mg tablet 4 mg PO BID RLS 02/23/13 02/17/24 History aspirin 81 mg tablet,delayed 81 mg PO DAILY heart health 07/06/20 02/17/24 History release (Adult Low Dose Aspirin) omeprazole 40 mg capsule,delayed 40 mg PO DAILY 07/06/20 02/17/24 History release potassium chloride 20 mEq 20 meq PO DAILY 11/09/21 02/17/24 History tablet,extended release amlodipine 5 mg tablet 5 mg PO DAILY #30 tabs 07/29/22 02/17/24 Rx clonidine HCl 0.1 mg tablet 0.1 mg PO BID 07/29/22 02/17/24 History ezetimibe 10 mg tablet 10 mg PO DAILY #90 TABLETS 09/01/23 02/17/24 Rx duloxetine 30 mg capsule,delayed 30 mg PO DAILY 10/01/23 02/17/24 History release pregabalin 75 mg capsule 75 mg PO BID 10/01/23 02/17/24 History acetaminophen 500 mg tablet 650 mg (1.3 x 500 mg) PO Q6H PRN 10/03/23 02/17/24 Rx Pain Score 1-5/10 #0 tabs albuterol sulfate 90 mcg/actuation 2 puff inhalation Q4H PRN 01/01/24 02/17/24 Rx aerosol inhaler shortness of breath or wheezing #8.5 grams insulin glargine 100 unit/mL (3 50 unit subcut BID 01/12/24 Unknown History mL) subcutaneous pen (Lantus Solostar U-100 Insulin) insulin lispro 100 unit/mL 20 unit subcut BID 01/12/24 Unknown History subcutaneous pen (Humalog KwikPen (U-100) Insulin) albuterol sulfate 2.5 mg/3 mL 2.5 mg inhalation PRN PRN 01/20/24 Unknown History (0.083 %) solution for nebulization shortness of breath or wheezing vibegron 75 mg tablet (Gemtesa) 75 mg PO DAILY 02/04/24 02/09/24 History clopidogrel 75 mg tablet 75 mg PO DAILY 05/20/24 Unknown History losartan 25 mg tablet 25 mg PO DAILY 05/20/24 Unknown History metoprolol succinate 25 mg 25 mg PO DAILY 05/20/24 Unknown History tablet,extended release 24 hr oxycodone-acetaminophen 5 mg-325 tab 05/20/24 Unknown History mg tablet pantoprazole 40 mg tablet,delayed 40 mg PO DAILY 05/20/24 Unknown History release rosuvastatin 20 mg tablet 10 mg PO DAILY 05/20/24 Unknown History Allergy/AdvReac Type Severity Reaction Status Date / Time rivaroxaban (From Xarelto) Allergy Intermediate Itching Verified 05/20/24 11:22 Environmental Allergies: Allergy PT UNABLE Verified 05/20/24 11:22 Uncoded TO RESPOND-NEEDS F/U latex Allergy Itching Verified 02/09/24 08:21 pravastatin Allergy Unknown Verified 05/20/24 11:22 codeine AdvReac Severe Itching Verified 05/20/24 11:22 zolpidem (From Ambien) AdvReac Severe Sleep Verified 05/20/24 11:22 walking/talking Family History Father Heart disease Hypertension CAD (coronary artery disease) Arthritis Mother Hypertension Asthma Diabetes Heart disease COPD (chronic obstructive pulmonary disease) Surgical History Hx of cystoscopy Hx of hammer toe correction History of toe surgery Hx of left cataract extraction Hx of right cataract extraction History of carpal tunnel surgery of right wrist History of carpal tunnel surgery of left wrist History of cardiac catheterization History of laparoscopic cholecystectomy sciatic nerve cauterization History of laminectomy (~07/2015) History of back surgery (~2018) History of umbilical hernia repair (~08/2012) History of cholecystectomy (~09/2011) History of appendectomy Social History household members: spouse housing: house Smoking Status: Never smoker second hand exposure: No alcohol intake: current alcohol intake frequency: holidays/special occasions only Alcohol type: beer and hard liquor substance use type: does not use caffeine: Yes Type: coffee Number of servings: 1 and tea what type of physical activity do you participate in: other details: physical therapy frequency: 1-2 times per week seatbelt use: always do you feel safe at home: Yes ROS ROS ED Constitutional Constitutional ED: Denies chills or fever(s) Eyes Eyes: Denies blurry vision or change in vision ENT ENT ED: Denies rhinorrhea or sore throat Cardiovascular Cardiovascular: Denies chest pain or palpitations Respiratory/Chest Respiratory/Chest: Reports cough and dyspnea Gastrointestinal Gastrointestinal: Denies nausea or vomiting Genitourinary Genitourinary ED: Reports urinary frequency; Denies dysuria or hematuria Musculoskeletal Musculoskeletal: Reports back pain; Denies neck pain Integumentary Denies abscess or rash Neurologic Neurologic: Denies headache(s) or weakness Allergic/Immunologic Allergic/Immunologic ED: Denies mouth swelling or urticaria EXAM Physical Exam Const Vital Signs: 05/20/24 11:17 05/20/24 11:23 05/20/24 11:23 Temperature 99.4 F H 99.4 F H Temperature Source Axillary Axillary Pulse Rate 90 90 Respiratory Rate 26 H 29 H Respiratory Effort Short of Breath Labored Accessory Muscle Use Respiratory Depth Normal Respiratory Pattern Irregular Blood Pressure 167/72 H 167/72 H Blood Pressure Mean 103 103 Pulse Ox 95 94 Oxygen Delivery Method Room Air Room Air Room Air Oxygen Flow Rate (L/min) 05/20/24 12:05 05/20/24 12:05 05/20/24 12:09 Temperature Temperature Source Pulse Rate 89 Respiratory Rate 26 H Respiratory Effort Respiratory Depth Respiratory Pattern Tachypnea Blood Pressure Blood Pressure Mean Pulse Ox 96 95 Oxygen Delivery Method Nasal Cannula Nasal Cannula Oxygen Flow Rate (L/min) 1 2 05/20/24 12:22 05/20/24 13:00 05/20/24 13:23 Temperature 98.9 F 98.9 F Temperature Source Axillary Axillary Pulse Rate 78 89 Respiratory Rate 22 H 22 H Respiratory Effort Respiratory Depth Respiratory Pattern Blood Pressure 124/89 H 186/84 H 200/100 H Blood Pressure Mean 100 118 133 Pulse Ox 98 93 Oxygen Delivery Method Nasal Cannula Nasal Cannula Oxygen Flow Rate (L/min) 2 2 05/20/24 13:26 05/20/24 14:00 05/20/24 15:00 Temperature 98.9 F Temperature Source Axillary Pulse Rate 89 88 89 Respiratory Rate 26 H 22 H 21 H Respiratory Effort Respiratory Depth Respiratory Pattern Blood Pressure 155/84 H 145/70 H 136/66 H Blood Pressure Mean 107 95 89 Pulse Ox 98 91 93 Oxygen Delivery Method Nasal Cannula Nasal Cannula Oxygen Flow Rate (L/min) 2 2 Positive well nourished and well developed General Appearance ED: well developed and NAD HEENT Reports moist mucous membranes Neck supple and no JVD Resp normal respiratory effort Auscultation: diminished lung sounds diffuse Cardio regular rate and regular rhythm GI non-tender and non-distended Palpation: soft Neuro oriented x3, CN's II-XII intact bilaterally and no sensory deficits noted [place] Coma Scale: document GCS findings Spontaneous Obeys Commands Oriented 15 Sensorium / Orientation: alert Motor Exam: strength 5/5 throughout Psych Mood & Affect: anxious MDM MDM MDM Narrative Medical decision making narrative: Differential diagnosis includes pneumonia, congestive heart failure, cardiac dysrhythmia, electrolyte abnormality, cardiac ischemia, urinary tract infection, sepsis, and viral illness. EKG will be obtained to assess for cardiac dysrhythmia and cardiac ischemia. Chest x-ray will be obtained to assess for pneumonia and bronchitis. CBC will be obtained to assess for leukocytosis and anemia. Basic metabolic profile will be obtained to assess for electrolyte abnormality and renal function. Urinalysis will be obtained to assess for urinary tract infection and hematuria. BNP will be obtained to assess for congestive heart failure. High-sensitivity troponin will be obtained to assess for cardiac ischemia. 2-hour repeat high-sensitivity troponin will be obtained to assess for ongoing cardiac ischemia. Serum lactate will be obtained to assess for sepsis. COVID-19, influenza, and RSV PCR will be obtained to assess for viral illness. Lab Data Attestation: I reviewed the patient's lab results. Lab results narrative: CBC was reviewed and was within normal limits. PT with INR and PTT were reviewed and were within normal limits. High-sensitivity troponin was reviewed and was elevated at 93. proBNP was reviewed and was elevated at 1118. Urinalysis was reviewed. Leukocyte esterase was 500 with 25-50 white blood cells. COVID-19 PCR was reviewed and was negative. Influenza PCR was reviewed and was negative for influenza A and influenza B. RSV PCR was reviewed and was negative. 2-hour repeat high-sensitivity troponin was improved at 82. Labs: Laboratory Results - last 24 hr 05/20/24 05/20/24 05/20/24 11:41 12:07 12:46 WBC 4.8 RBC 4.43 Hgb 12.7 Hct 39.8 MCV 89.8 MCH 28.7 MCHC 31.9 L RDW Std Deviation 43.8 RDW Coeff of Mitzy 13.4 Plt Count 248 MPV 9.6 Immature Gran % (Auto) 1.300 H Neut % (Auto) 61.6 Lymph % (Auto) 23.9 [place] % (Auto) 10.9 H Eos % (Auto) 1.9 Baso % (Auto) 0.4 Absolute Neuts (auto) 2.9 Absolute Lymphs (auto) 1.14 Nucleated RBC % 0 PT 13.5 INR 1.0 APTT 23.6 L Sodium 136 Potassium 4.4 Chloride Direct 100 Carbon Dioxide 17.0 L Anion Gap 19 H BUN 18 Creatinine 1.3 H Estim Creat Clear Calc 48.20 Est GFR (MDRD) Non-Af 45 L BUN/Creatinine Ratio 14.3 Glucose 169 H Lactic Acid 2.1 H Calcium 9.4 Troponin T High Sens 93 H* Troponin T Hi Sens 2 Hr Troponin T Hi Sens 2Hr Delta NT pro BNP II 1118 H Urine Color Yellow Urine Clarity Cloudy Urine pH 6.0 Ur Specific [place] 1.015 Urine Protein 100 H Urine Glucose (UA) Normal Urine Ketones 50 H Urine Occult Blood 25 H Urine Nitrite Negative Urine Bilirubin 1 H Urine Urobilinogen Normal Ur Leukocyte Esterase 500 H Urine RBC 0 SEEN Urine WBC 25-50 SEEN Ur Squamous Epith Cells 0-5 SEEN Urine Bacteria 0 SEEN Urine Mucus 0 SEEN Urine Yeast 1+ 05/20/24 14:15 WBC RBC Hgb Hct MCV MCH MCHC RDW Std Deviation RDW Coeff of Mitzy Plt Count MPV Immature Gran % (Auto) Neut % (Auto) Lymph % (Auto) [place] % (Auto) Eos % (Auto) Baso % (Auto) Absolute Neuts (auto) Absolute Lymphs (auto) Nucleated RBC % PT INR APTT Sodium Potassium Chloride Direct Carbon Dioxide Anion Gap BUN Creatinine Estim Creat Clear Calc Est GFR (MDRD) Non-Af BUN/Creatinine Ratio Glucose Lactic Acid Calcium Troponin T High Sens Troponin T Hi Sens 2 Hr 82 H* Troponin T Hi Sens 2Hr Delta 11 NT pro BNP II Urine Color Urine Clarity Urine pH Ur Specific [place] Urine Protein Urine Glucose (UA) Urine Ketones Urine Occult Blood Urine Nitrite Urine Bilirubin Urine Urobilinogen Ur Leukocyte Esterase Urine RBC Urine WBC Ur Squamous Epith Cells Urine Bacteria Urine Mucus Urine Yeast Radiography Chest X-Ray - ED: 2 View, Read by ED Physician, Read by Radiologist and No Acute Disease Diagnostic Testing: Clinical Impression(s) from Imaging Studies Chest X-Ray 05/20/24 12:20 IMPRESSION: No acute abnormality is seen. Reading Location: [id number] and lateral chest x-ray was obtained. There are 2 views. On my independent interpretation, lung teresa are clear. There is normal cardiac silhouette. Bony thorax is normal. There is no acute process noted. Radiologist also interpreted the x-ray and agrees. EKG Initial EKG: Attestation: I personally reviewed and interpreted this EKG as follows: Interpretation: Sinus Rhythm (With first-degree AV block with a rate of 91) and LBBB Comments: EKG was obtained. On my independent interpretation, shows a sinus rhythm with a first-degree AV block with a rate of 91. PA interval was prolonged at 234 ms. QRS interval was prolonged at 148 ms. QTc interval was prolonged at 519 ms. There is left axis deviation at -33. There is a left bundle branch block pattern. There are no acute ST or T wave changes noted. Prior EKG tracings: available for review Prior: Changed (Compared to stress test from 01/27/2024, the left bundle branch block pattern is new.) Management Discussion w/another healthcare provider: Hospitalist and Systems Consultant (Dr. Gilbert from cardiology) Additional Tests and Interventions Additional Tests or Interventions: Urine culture was obtained. Blood culture was obtained. Treatment and Re-Evaluation :: Patient was given morphine and Zofran. Case was discussed with Dr. Gilbert. He recommended giving the patient a dose of Lovenox. This was ordered. Patient was given nitroglycerin paste. Patient was also given a dose of Rocephin for urinary tract infection. Patient was advised of her findings. Patient was advised of the need for admission. Patient was agreeable with this. I was notified that patient did have a trigger for sepsis with lactate of 2.1. However, patient is afebrile. White blood cell count is normal. Patient is not tachycardic. I do not feel patient is septic. I feel the lactic acidosis is likely due to the dyspnea. Case was discussed with hospitalist. He will admit the patient to his service. Patient and family understand and are agreeable with the plan. All questions were answered. Discharge Plan Dx/Rx/DC Orders Clinical Impression: Dyspnea, Elevated troponin, Urinary tract infection, (HFpEF) heart failure with preserved ejection fraction Disposition Disposition: Acute Care Hospital [facility]
--- NOTE | 2024-05-20 11:52 | EKG12_ITS ---
Test Reason : Blood Pressure : */* mmHG Vent. Rate : 65 BPM Atrial Rate : 65 BPM P-R Int : 146 ms QRS Dur : 74 ms QT Int : 440 ms P-R-T Axes : 22 0 -11 degrees QTcB Int : 457 ms Normal sinus rhythm MINOR NON SPECIFIC ST AND T WAVE ABNORMALITY Abnormal ECG When compared with ECG of 20-May-2024 11:24, MANUAL COMPARISON REQUIRED DATA IS UNCONFIRMED Confirmed by Mele Gilbert ([id number]), acquisition editor AYDIN POWELL ([id number]) on 05/21/2024 2:23:10 PM Referred By: Kali Pineda Confirmed By: Mele Gilbert
[2024-05-20] MEDS: Albuterol 2.5 MG/3 ML VIAL.NEB. INHALATION (12:03)
[2024-05-20 12:09] LABS: Absolute Lymphocyte Count 1.14 X10^3/uL (0.83-4.51); Absolute Neutrophil Count 2.9 X10^3/uL (2.0-7.7); Basophil# 0.02 X10^3/uL; Basophil% 0.4 % (0-1); Eosinophil# 0.09 X10^3/uL; Eosinophils% 1.9 % (0-5); Hematocrit 39.8 % (37-47); Hemoglobin 12.7 g/dL (12.0-15.0); Lymphocyte # 1.14 X10^3/ul (0.83-4.51); Lymphocyte % 23.9 % (19-41); Mean Corp Hgb Conc 31.9 g/dL (32-36); Mean Corpuscular Hgb 28.7 pg (27.0-32.0); Mean Corpuscular Volume 89.8 fL (81-99); Mean Platelet Vol. 9.6 fl (6.2-12.0); Monocyte# 0.52 X10^3/uL; Monocyte% 10.9 % (0-10); NRBC Flagged by Analyzer 0 % (0-5); Neutrophil # 2.94 X10^3/uL (2.7-7.7); Neutrophil % 61.6 % (47-70); Platelet Count 248 K/mm3 (150-450); RBC Distribution Width CV 13.4 % (11.6-14.6); RBC Distribution Width SD 43.8 fl (35.1-43.9); Red Blood Count 4.43 M/mm3 (4.2-5.4); White Blood Count 4.8 K/mm3 (4.4-11.0)
[2024-05-20] MEDS: 0.9% Normal Saline (1000mL) 1,000 ML 1000 ML IV (12:10)
[2024-05-20 12:19] LABS: Prothrombin Time (Protime)PT. 13.5 SECONDS (11.7-14.9)
[2024-05-20 12:20] LABS: Partial Thromboplast Time 23.6 Seconds (24.1-36.2)
--- NOTE | 2024-05-20 12:20 | RAD_ITS ---
PROCEDURE: CHEST PA AND LATERAL REASON FOR EXAM: Dyspnea. TECHNIQUE: AP and lateral views were obtained. COMPARISON: Comparison is made with prior study dated January 12, 2024. FINDINGS: EKG electrodes are seen. The lungs are clear. Degenerative changes of the thoracic vertebrae. Borderline cardiomegaly. RAD/Chest PA and Lateral IMPRESSION: No acute abnormality is seen. Reading Location: [id number]
[2024-05-20 12:51] LABS: Bacteria 0 SEEN /hpf (None Seen); Mucous, Urine 0 SEEN /hpf (<or=2+)
[2024-05-20 12:54] LABS: Color, Urine Yellow (Yellow); Glucose, Dipstick Normal (Normal); Ketone-Dipstick 50 mg/dl (Negative); Leukocyte Esterase-Dipstick 500 /ul (Negative); Nitrite-Dipstick Negative (Negative); Occult Blood-Urine 25 /ul (Negative); Protein-Dipstick 100 mg/dl (Negative); Specific Gravity, Urine 1.015 (1.002-1.030); Urine Bilirubin Dipstick 1 mg/dL (Negative); Urine Clarity Cloudy (Clear); Urine Urobilinogen Normal (Normal)
[2024-05-20 13:03] LABS: Squamous Epithelial Cells - UA 0-5 SEEN /hpf (5-10); White Blood Cells 25-50 SEEN /hpf (0-5); Yeast-Urine 1+ /hpf (None Seen)
[2024-05-20 13:04] LABS: Red Blood Cells-Urine 0 SEEN /hpf (0-5)
[2024-05-20 13:33] LABS: Lactic Acid 2.1 mmol/L (0.0-2.0)
[2024-05-20 13:43] LABS: Troponin T High Sensitivity 93 ng/L (<=14)
[2024-05-20 14:20] LABS: Pro- Brain NATRIURETIC PEPTIDE 1118 pg/mL (<=900)
[2024-05-20] MEDS: Enoxaparin 120 MG/0.8 ML Syringe SC (14:30)
[2024-05-20] MEDS: Morphine 4 MG/ML Syringe IV (14:30)
[2024-05-20] MEDS: Ondansetron 4 MG/2 ML Vial IV (14:30)
[2024-05-20 14:50] LABS: Anion Gap 19 (5-15); BUN 18 mg/dL (4-19); BUN/Creat Ratio 14.3 RATIO (10-20); Calcium 9.4 mg/dL (7.6-11.0); Chloride 100 mmol/L (96-108); Creatinine, Serum 1.3 mg/dL (0.6-1.0); EST Glomerular Filtration Rate 45 (>60); Glucose 169 mg/dL (70-99); Potassium 4.4 mmol/L (3.3-5.1); Sodium Level 136 mmol/L (133-145)
--- NOTE | 2024-05-20 14:53 | ED.RN ---
DR. BRAR NOTIFIED OF PT TRIGGERING SEPSIS.
[2024-05-20 15:03] LABS: TROPONIN VARIANCE 2 HR 11; Troponin T High Sens 2 HR 82 ng/L (<=14)
--- NOTE | 2024-05-20 15:59 | PCM.HP.STD ---
[facility] - General General Date of Service: 05/20/24 Chief Complaint: Shortness of breath. Malaise. [facility] Narrative ANN PEARCE, is a 74 F who presents with complaints of shortness of breath, malaise and just feeling unwell overall. Symptoms again yesterday. Patient complains of chills as well sore throat which, shortness of breath. Also complaining of right-sided jaw pain. Patient this past Friday underwent 4 stents over at [facility]. Was discharged home and had been doing well up until recently. She does have chronic lower extremity edema which no change at this time for her description. Patient presented to the emergency room where it was concerning that she may have CHF given elevated BNP. She was found have urinary tract infection. Patient was started on Nitropaste, received ceftriaxone for the urinary tract infection. Additionally she had troponins that went from 92-83. Dr. Gilbert was contacted from the emergency room and he saw the patient along with me in the emergency room. [facility] Medical History Lesion of bladder Nonadherence to medication Depression Uses wheelchair Bladder disease Back pain Hx of falling Shortness of breath on exertion History of pain when walking History of echocardiogram History of stress test Hypertension History of CHF (congestive heart failure) Pain Uses wheelchair CPAP (continuous positive airway pressure) dependence History of heart attack (HFpEF) heart failure with preserved ejection fraction Wears glasses Wears dentures Insulin dependent diabetes mellitus Walker as ambulation aid Arthritis Pulmonary embolism Restless legs Back pain Dietary restriction History of IBS Gastric reflux Non-smoker On home oxygen therapy COPD (chronic obstructive pulmonary disease) Asthma Shortness of breath on exertion History of edema Hx of transesophageal echocardiography (MARIELLA) for monitoring Cardiology follow-up encounter COVID-19 determined by clinical diagnostic criteria Atherosclerosis of [place] coronary artery of [place] heart without angina pectoris Essential hypertension Dehydration Dehydration with hyponatremia Recurrent falls JILL (acute kidney injury) Carpal tunnel syndrome Seasonal allergies Chronic bronchitis Vitamin D deficiency Hyperlipidemia Diabetic peripheral neuropathy Hypokalemia IBS (irritable bowel syndrome) Insomnia Spinal stenosis of lumbar region DDD (degenerative disc disease), cervical Disequilibrium DM (diabetes mellitus), type 2, uncontrolled GERD (gastroesophageal reflux disease) Gastroenteritis Morbid obesity Atrial septal defect Pulmonary emboli Edema Abnormal echocardiogram SOB (shortness of breath) Obesity (BMI 35.0-39.9 without comorbidity) SHANNON (obstructive sleep apnea) Anxiety and depression Cystitis, acute Sepsis Restless leg syndrome Hypertension DM (diabetes mellitus), type 2, uncontrolled Asthma Home Medications ?Medication ?Instructions ?Recorded ?Last Taken ?Type ropinirole 4 mg tablet 4 mg PO BID RLS 02/23/13 02/17/24 History aspirin 81 mg tablet,delayed 81 mg PO DAILY heart health 07/06/20 02/17/24 History release (Adult Low Dose Aspirin) omeprazole 40 mg capsule,delayed 40 mg PO DAILY 07/06/20 02/17/24 History release potassium chloride 20 mEq 20 meq PO DAILY 11/09/21 02/17/24 History tablet,extended release amlodipine 5 mg tablet 5 mg PO DAILY #30 tabs 07/29/22 02/17/24 Rx clonidine HCl 0.1 mg tablet 0.1 mg PO BID 07/29/22 02/17/24 History ezetimibe 10 mg tablet 10 mg PO DAILY #90 TABLETS 09/01/23 02/17/24 Rx duloxetine 30 mg capsule,delayed 30 mg PO DAILY 10/01/23 02/17/24 History release pregabalin 75 mg capsule 75 mg PO BID 10/01/23 02/17/24 History acetaminophen 500 mg tablet 650 mg (1.3 x 500 mg) PO Q6H PRN 10/03/23 02/17/24 Rx Pain Score 1-5/10 #0 tabs albuterol sulfate 90 mcg/actuation 2 puff inhalation Q4H PRN 01/01/24 02/17/24 Rx aerosol inhaler shortness of breath or wheezing #8.5 grams insulin glargine 100 unit/mL (3 50 unit subcut BID 01/12/24 Unknown History mL) subcutaneous pen (Lantus Solostar U-100 Insulin) insulin lispro 100 unit/mL 20 unit subcut BID 01/12/24 Unknown History subcutaneous pen (Humalog KwikPen (U-100) Insulin) albuterol sulfate 2.5 mg/3 mL 2.5 mg inhalation PRN PRN 01/20/24 Unknown History (0.083 %) solution for nebulization shortness of breath or wheezing vibegron 75 mg tablet (Gemtesa) 75 mg PO DAILY 02/04/24 02/09/24 History clopidogrel 75 mg tablet 75 mg PO DAILY 05/20/24 Unknown History losartan 25 mg tablet 25 mg PO DAILY 05/20/24 Unknown History metoprolol succinate 25 mg 25 mg PO DAILY 05/20/24 Unknown History tablet,extended release 24 hr oxycodone-acetaminophen 5 mg-325 tab 05/20/24 Unknown History mg tablet pantoprazole 40 mg tablet,delayed 40 mg PO DAILY 05/20/24 Unknown History release rosuvastatin 20 mg tablet 10 mg PO DAILY 05/20/24 Unknown History Allergy/AdvReac Type Severity Reaction Status Date / Time rivaroxaban (From Xarelto) Allergy Intermediate Itching Verified 05/20/24 11:22 Environmental Allergies: Allergy PT UNABLE Verified 05/20/24 11:22 Uncoded TO RESPOND-NEEDS F/U latex Allergy Itching Verified 02/09/24 08:21 pravastatin Allergy Unknown Verified 05/20/24 11:22 codeine AdvReac Severe Itching Verified 05/20/24 11:22 [email or web address] (From Ambien) AdvReac Severe Sleep Verified 05/20/24 11:22 walking/talking Family History Father Heart disease Hypertension CAD (coronary artery disease) Arthritis Mother Hypertension Asthma Diabetes Heart disease COPD (chronic obstructive pulmonary disease) Surgical History Hx of cystoscopy Hx of hammer toe correction History of toe surgery Hx of left cataract extraction Hx of right cataract extraction History of carpal tunnel surgery of right wrist History of carpal tunnel surgery of left wrist History of cardiac catheterization History of laparoscopic cholecystectomy sciatic nerve cauterization History of laminectomy (~07/2015) History of back surgery (~2018) History of umbilical hernia repair (~08/2012) History of cholecystectomy (~09/2011) History of appendectomy Social History household members: spouse housing: house Smoking Status: Never smoker second hand exposure: No alcohol intake: current alcohol intake frequency: holidays/special occasions only Alcohol type: beer and hard liquor substance use type: does not use caffeine: Yes Type: coffee Number of servings: 1 and tea what type of physical activity do you participate in: other details: physical therapy frequency: 1-2 times per week seatbelt use: always do you feel safe at home: Yes ROS ROS Narrative All review of systems were negative except as mentioned above in the history of present illness and the other review of systems. Vital Signs Vital Signs Vital Signs: 05/20/24 11:17 05/20/24 11:23 05/20/24 11:23 Temperature 37.4 C H 37.4 C H Temperature Source Axillary Axillary Pulse Rate 90 90 Respiratory Rate 26 H 29 H Respiratory Effort Short of Breath Labored Accessory Muscle Use Respiratory Depth Normal Respiratory Pattern Irregular Blood Pressure 167/72 H 167/72 H Blood Pressure Mean 103 103 Pulse Ox 95 94 Oxygen Delivery Method Room Air Room Air Room Air Oxygen Flow Rate (L/min) 05/20/24 12:05 05/20/24 12:05 05/20/24 12:09 Temperature Temperature Source Pulse Rate 89 Respiratory Rate 26 H Respiratory Effort Respiratory Depth Respiratory Pattern Tachypnea Blood Pressure Blood Pressure Mean Pulse Ox 96 95 Oxygen Delivery Method Nasal Cannula Nasal Cannula Oxygen Flow Rate (L/min) 1 2 05/20/24 12:22 05/20/24 13:00 05/20/24 13:23 Temperature 37.2 C 37.2 C Temperature Source Axillary Axillary Pulse Rate 78 89 Respiratory Rate 22 H 22 H Respiratory Effort Respiratory Depth Respiratory Pattern Blood Pressure 124/89 H 186/84 H 200/100 H Blood Pressure Mean 100 118 133 Pulse Ox 98 93 Oxygen Delivery Method Nasal Cannula Nasal Cannula Oxygen Flow Rate (L/min) 2 2 05/20/24 13:26 05/20/24 14:00 05/20/24 15:00 Temperature 37.2 C Temperature Source Axillary Pulse Rate 89 88 89 Respiratory Rate 26 H 22 H 21 H Respiratory Effort Respiratory Depth Respiratory Pattern Blood Pressure 155/84 H 145/70 H 136/66 H Blood Pressure Mean 107 95 89 Pulse Ox 98 91 93 Oxygen Delivery Method Nasal Cannula Nasal Cannula Oxygen Flow Rate (L/min) 2 2 05/20/24 15:41 Temperature 37.2 C Temperature Source Pulse Rate 89 Respiratory Rate 21 H Respiratory Effort Respiratory Depth Respiratory Pattern Blood Pressure 136/66 H Blood Pressure Mean 89 Pulse Ox 93 Oxygen Delivery Method Oxygen Flow Rate (L/min) Weight Weight: 116 kg Body Mass Index (BMI) 43.9 Physical Exam Const Constitutional Narrative: Uncomfortable. Afebrile. HEENT normocephalic and head/scalp atraumatic Eyes Eyes Narrative: No icterus Neck no lymphadenopathy Neck Narrative: Thick neck tissue and unable to appreciate any JVD. Resp Resp Narrative: Diminished breath sounds throughout. No crackles auscultated. Cardio regular rate, regular rhythm, S1 normal heart sound and S2 normal heart sound GI normal to inspection, nondistended, normoactive bowel sounds, soft to palpation, non-tender and non-distended GI Narrative: Obese Extremity Extremity Narrative: Bilateral lower extremity edema but not tight. Does have lymphedematous changes of the lower extremities. Neuro moves all extremities and no focal motor deficits Sensorium / Orientation: awake and alert Psych Mood & Affect: anxious Results Lab / Micro Data Attestation: I reviewed the patient's lab results. 05/20/24 11:41 05/20/24 11:41 Labs: Laboratory Results - last 24 hr 05/20/24 11:41: WBC 4.8, RBC 4.43, Hgb 12.7, Hct 39.8, MCV 89.8, MCH 28.7, MCHC 31.9 L, RDW Std Deviation 43.8, RDW Coeff of Mitzy 13.4, Plt Count 248, MPV 9.6, Immature Gran % (Auto) 1.300 H, Neut % (Auto) 61.6, Lymph % (Auto) 23.9, [place] % (Auto) 10.9 H, Eos % (Auto) 1.9, Baso % (Auto) 0.4, Absolute Neuts (auto) 2.9, Absolute Lymphs (auto) 1.14, Nucleated RBC % 0, PT 13.5, INR 1.0, APTT 23.6 L, Sodium 136, Potassium 4.4, Chloride Direct 100, Carbon Dioxide 17.0 L, Anion Gap 19 H, BUN 18, Creatinine 1.3 H, Estim Creat Clear Calc 48.20, Est GFR (MDRD) Non-Af 45 L, BUN/Creatinine Ratio 14.3, Glucose 169 H, Calcium 9.4, Troponin T High Sens 93 H*, NT pro BNP II 1118 H 05/20/24 12:07: Lactic Acid 2.1 H 05/20/24 12:46: Urine Color Yellow, Urine Clarity Cloudy, Urine pH 6.0, Ur Specific [place] 1.015, Urine Protein 100 H, Urine Glucose (UA) Normal, Urine Ketones 50 H, Urine Occult Blood 25 H, Urine Nitrite Negative, Urine Bilirubin 1 H, Urine Urobilinogen Normal, Ur Leukocyte Esterase 500 H, Urine RBC 0 SEEN, Urine WBC 25-50 SEEN, Ur Squamous Epith Cells 0-5 SEEN, Urine Bacteria 0 SEEN, Urine Mucus 0 SEEN, Urine Yeast 1+ 05/20/24 14:15: Troponin T Hi Sens 2 Hr 82 H*, Troponin T Hi Sens 2Hr Delta 11 Micro: Microbiology 05/20/24 12:00 Mucosa - Nose SARS-CoV-2, Influenza & RSV (PCR) - Final EKG Initial EKG: Attestation: I personally reviewed and interpreted this EKG as follows: Prior EKG tracings: available for review EKG Rhythm Intrepretation: Sinus Rhythm (Left bundle branch block) Imaging Radiology Impression Chest X-Ray 05/20/24 12:20 IMPRESSION: No acute abnormality is seen. Reading Location: [id number] Assessment & Plan Assessment/Plan (1) CHF exacerbation: PLAN: Chest x-ray is rather limited due to her body habitus but elevated BNP greater than thousand. Discussed with Dr. Gilbert and he recommends continue with IV diuresis as well as checking echocardiogram. Patient recently underwent left heart catheterization this past Friday and had 4 stents placed which probably one of the stents is a left main stent. He will be try to contact [facility] for cath reports but I will also request the medical records for the cath report as well. I try to pull it up on [facility] but the station I was on was unable to access that. (2) Asthma exacerbation: PLAN: Possibly this could be the main lead driver of her dyspnea. As her lung sounds are diminished bilaterally. She was checked for COVID, influenza and RSV which was negative. Will start her on methylprednisolone tonight and transition that over to prednisone starting tomorrow. Additionally patient will be on bronchodilators. I do not appreciate any pneumonia on chest x-ray (3) Urinary tract infection: PLAN: Positive urinalysis. Follow-up on urine culture. Patient received ceftriaxone in the emergency room. Will continue that on the floor. (4) Elevated troponin: PLAN: Went from 92-83. This may very well be residual from her recent cardiac catheterization. And unclear if that overall is trending down from her recent cardiac catheterization nearly a week ago. Patient did receive weight-based dose of enoxaparin emergency room. Will hold off on that for now unless troponins start escalating significantly. Checking echocardiogram. PLAN: Plan Chronic conditions Diabetes mellitus type 2: Continue with glargine and prandial insulin. Add sliding scale insulin. Check an A1c. CAD: Continue with aspirin, clopidogrel patient not on statin due to documented intolerance. Obesity class III: Complicates care and recovery. Hypertension: Continue with amlodipine, clonidine, losartan, metoprolol succinate. VTE prophylaxis with enoxaparin CODE STATUS: Addressed with the patient. Patient wishes to be full code. Patient apprised that she can change her mind anytime just to notify us if that is what she decides. Discussed with the patient's at bedside. Additionally spoke with Dr. Gilbert. Charges/Coding Visit Charges Inpatient E&M: 60666 Init Hosp L3
[2024-05-20] MEDS: Nitroglycerin Oint 1 INCH PACKET TD (16:06)
[2024-05-20] MEDS: Ceftriaxone 1 GM/50 ML BAG IV (16:06)
--- NOTE | 2024-05-20 16:08 | CON.PCM.CA_ITS ---
HPI Consult Data Date of Consult: 05/20/24 HPI Narrative Reason for Consultation: Shortness of breath and dyspnea on exertion with recent stenting. HPI Narrative: ANN PEARCE, is a 74 F who presents with progressive shortness of breath. The patient underwent complex Impella supported drug-eluting stents to the left main trunk LAD and circumflex. This was done at [facility] on 05/14/2024. The patient tolerated procedure well and was discharged to home on 05/17/2024. The patient did have some acute kidney injury at that time and her hydrochlorothiazide was discontinued. She was discharged home on metoprolol succinate 25 mg daily losartan 25 mg daily. This procedure was undertaken after a prolonged evaluation following a left heart catheterization done the end of January 2024 at [facility] by Dr. Penny. Patient was seen by interventional cardiology and cardiothoracic surgery at [facility]. They decided that she was not a surgical candidate despite her critical left main trunk lesion LAD and circumflex disease. This is due primarily to her comorbid states her morbid obesity and her deconditioning. The patient slowly underwent the complex procedure noted above. Of note the patient had an EKG done at [facility] 05/14/2024 that showed normal sinus rhythm with a prolonged [place] interval and a left bundle branch block with left axis deviation. This actually was new compared to the stress test done at [facility] January 2024. Her EKG in the emergency room today shows a left bundle branch block with left anterior fascicular block and normal sinus rhythm unchanged from the one at [facility]. The patient reports that she did fairly well in her home environment until this morning when she awoke and was profoundly short of breath. [facility] Medical History Lesion of bladder Nonadherence to medication Depression Uses wheelchair Bladder disease Back pain Hx of falling Shortness of breath on exertion History of pain when walking History of echocardiogram History of stress test Hypertension History of CHF (congestive heart failure) Pain Uses wheelchair CPAP (continuous positive airway pressure) dependence History of heart attack (HFpEF) heart failure with preserved ejection fraction Wears glasses Wears dentures Insulin dependent diabetes mellitus Walker as ambulation aid Arthritis Pulmonary embolism Restless legs Back pain Dietary restriction History of IBS Gastric reflux Non-smoker On home oxygen therapy COPD (chronic obstructive pulmonary disease) Asthma Shortness of breath on exertion History of edema Hx of transesophageal echocardiography (MARIELLA) for monitoring Cardiology follow-up encounter COVID-19 determined by clinical diagnostic criteria Atherosclerosis of [place] coronary artery of [place] heart without angina pectoris Essential hypertension Dehydration Dehydration with hyponatremia Recurrent falls JILL (acute kidney injury) Carpal tunnel syndrome Seasonal allergies Chronic bronchitis Vitamin D deficiency Hyperlipidemia Diabetic peripheral neuropathy Hypokalemia IBS (irritable bowel syndrome) Insomnia Spinal stenosis of lumbar region DDD (degenerative disc disease), cervical Disequilibrium DM (diabetes mellitus), type 2, uncontrolled GERD (gastroesophageal reflux disease) Gastroenteritis Morbid obesity Atrial septal defect Pulmonary emboli Edema Abnormal echocardiogram SOB (shortness of breath) Obesity (BMI 35.0-39.9 without comorbidity) SHANNON (obstructive sleep apnea) Anxiety and depression Cystitis, acute Sepsis Restless leg syndrome Hypertension DM (diabetes mellitus), type 2, uncontrolled Asthma Home Medications ?Medication ?Instructions ?Recorded ?Last Taken ?Type ropinirole 4 mg tablet 4 mg PO BID RLS 02/23/13 History aspirin 81 mg tablet,delayed 81 mg PO DAILY heart heal th 07/06/20 02/17/24 History release (Adult Low Dose Aspirin) omeprazole 40 mg capsule,delayed 40 mg PO DAILY 02/17/24 History release potassium chloride 20 mEq 20 meq PO DAILY 11/09/21 History tablet,extended release amlodipine 5 mg tablet 5 mg PO DAILY #30 tabs 07/2902/17/24 Rx clonidine HCl 0.1 mg tablet 0.1 mg PO BID 07/29/22 History ezetimibe 10 mg tablet 10 mg PO DAILY #90 TABLETS 0 09/01/23 02/17/24 Rx duloxetine 30 mg capsule,delayed 30 mg PO DAILY 02/17/24 History release pregabalin 75 mg capsule 75 mg PO BID 10/01/23 History acetaminophen 500 mg tablet 650 mg (1.3 x 500 mg) PO Q 6H PRN 10/03/23 02/17/24 Rx Pain Score 1-5/10 #0 tabs albuterol sulfate 90 mcg/actuation 2 puff inhalation Q 4H PRN 01/01/24 02/17/24 Rx aerosol inhaler shortness of breath or wheez ing #8.5 grams insulin glargine 100 unit/mL (3 50 unit subcut BID Unknown History mL) subcutaneous pen (Lantus Solostar U-100 Insulin) insulin lispro 100 unit/mL 20 unit subcut BID 01/12/24 Unknown History subcutaneous pen (Humalog KwikPen (U-100) Insulin) albuterol sulfate 2.5 mg/3 mL 2.5 mg inhalation PRN [place] N 01/20/24 Unknown History (0.083 %) solution for nebulization shortness of breat h or wheezing vibegron 75 mg tablet (Gemtesa) 75 mg PO DAILY 4 02/09/24 History clopidogrel 75 mg tablet 75 mg PO DAILY 05/20/24 Unkn own History losartan 25 mg tablet 25 mg PO DAILY 05/20/24 Unkn own History metoprolol succinate 25 mg 25 mg PO DAILY 05/20/24 Unk nown History tablet,extended release 24 hr oxycodone-acetaminophen 5 mg-325 tab 05/20/24 Unknown History mg tablet pantoprazole 40 mg tablet,delayed 40 mg PO DAILY 05/20 Unknown History release rosuvastatin 20 mg tablet 10 mg PO DAILY 05/20/24 Unkn own History Allergy/AdvReac Type Severity Reaction Status Date / Time rivaroxaban (From Xarelto) Allergy Intermediate Itching Verified 05/20/24 11:22 Environmental Allergies: Allergy PT UNABLE Verified 05/20/24 11:22 Uncoded TO RESPOND-NEEDS F/U latex Allergy Itching Verified 02/09/24 08:21 pravastatin Allergy Unknown Verified 05/20/24 11:22 codeine AdvReac Severe Itching Verified 05/20/24 11:22 zolpidem (From Ambien) AdvReac Severe Sleep Verified 05/20/24 11:22 walking/talking Family History Father Heart disease Hypertension CAD (coronary artery disease) Arthritis Mother Hypertension Asthma Diabetes Heart disease COPD (chronic obstructive pulmonary disease) Surgical History Hx of cystoscopy Hx of hammer toe correction History of toe surgery Hx of left cataract extraction Hx of right cataract extraction History of carpal tunnel surgery of right wrist History of carpal tunnel surgery of left wrist History of cardiac catheterization History of laparoscopic cholecystectomy sciatic nerve cauterization History of laminectomy (~07/2015) History of back surgery (~2018) History of umbilical hernia repair (~08/2012) History of cholecystectomy (~09/2011) History of appendectomy Social History household members: spouse housing: house Smoking Status: Never smoker second hand exposure: No alcohol intake: current alcohol intake frequency: holidays/special occasions only Alcohol type: beer and hard liquor substance use type: does not use caffeine: Yes Type: coffee Number of servings: 1 and tea what type of physical activity do you participate in: other details: physical therapy frequency: 1-2 times per week seatbelt use: always do you feel safe at home: Yes Objective Data Vital Signs: Vital Signs Temp Pulse Resp BP Pulse Ox O2 Del Method O2 Flow Rate 98.9 F 108 H 21 H 153/78 H 93 Nasal Cannula 2 05/20/24 15:41 05/20/24 16:06 05/20/24 15:41 05/20/24 16:06 05/20/24 15:41 05/20/24 15:00 05/20/24 15:00 Oxygen Flow Rate (L/min) 2 Oxygen Delivery Method Nasal Cannula Weight: 255 lb 11.779 oz Body Mass Index (BMI) 43.9 Intake & Output: Intake and Output for Last 24 Hours 05/18/24 05/19/24 05/20/24 23:59 23:59 23:59 Intake Total 1000 / 1000 Balance 1000 / 1000 Lab / Micro Data 05/20/24 11:41 05/20/24 11:41 Labs: Laboratory Results - last 24 hr 05/20/24 11:41: WBC 4.8, RBC 4.43, Hgb 12.7, Hct 39.8, MCV 89.8, MCH 28.7, MCHC 31.9 L, RDW Std Deviation 43.8, RDW Coeff of Mitzy 13.4, Plt Count 248, MPV 9.6, I mmature Gran % (Auto) 1.300 H, Neut % (Auto) 61.6, Lymph % (Auto) 23.9, [place] % (Auto) 10.9 H, Eos % (Auto) 1.9, Baso % (Auto) 0.4, Absolute Neuts (auto) 2.9, Absolute Lymphs (auto) 1.14, Nucleated RBC % 0, PT 13.5, INR 1.0, APTT 23.6 L, Sodium 136, Potassium 4.4, Chloride Direct 100, Carbon Dioxide 17.0 L, Anion Gap 19 H, BUN 18, Creatinine 1.3 H, Estim Creat Clear Calc 48.20, Est GFR (MDRD) Non-Af 45 L, BUN/Creatinine Ratio 14.3, Glucose 169 H, Calcium 9.4, Troponin T High Sens 93 H*, NT pro BNP II 1118 H 05/20/24 12:07: Lactic Acid 2.1 H 05/20/24 12:46: Urine Color Yellow, Urine Clarity Cloudy, Urine pH 6.0, Ur Specific [place] 1.015, Urine Protein 100 H, Urine Glucose (UA) Normal, Urine Ketones 50 H, Urine Occult Blood 25 H, Urine Nitrite Negative, Urine Bilirubin 1 H, Urine Urobilinogen Normal, Ur Leukocyte Esterase 500 H, Urine RBC 0 SEEN, Urine WBC 25-50 SEEN, Ur Squamous Epith Cells 0-5 SEEN, Urine Bacteria 0 SEEN, Urine Mucus 0 SEEN, Urine Yeast 1+ 05/20/24 14:15: Troponin T Hi Sens 2 Hr 82 H*, Troponin T Hi Sens 2Hr Delta 11 Micro: Microbiology 05/20/24 12:00 Mucosa - Nose SARS-CoV-2, Influenza & RSV (PCR) - Final Cardiology Labs/Tests 05/20/24 11:41: WBC 4.8, RBC 4.43, Hgb 12.7, Hct 39.8, MCV 89.8, MCH 28.7, MCHC 31.9 L, Plt Count 248, MPV 9.6, Immature Gran % (Auto) 1.300 H, Neut % (Auto) 61.6, Lymph % (Auto) 23.9, [place] % (Auto) 10.9 H, Eos % (Auto) 1.9, Baso % (Auto) 0.4, Absolute Neuts (auto) 2.9, Nucleated RBC % 0, PT 13.5, INR 1.0, APTT 23.6 L , Sodium 136, Potassium 4.4, Carbon Dioxide 17.0 L, Anion Gap 19 H, BUN 18, C reatinine 1.3 H, Est GFR (MDRD) Non-Af 45 L, BUN/Creatinine Ratio 14.3, Glucose 169 H, Calcium 9.4 05/20/24 12:07: Lactic Acid 2.1 H 05/20/24 12:46: Urine Color Yellow, Urine Clarity Cloudy, Urine pH 6.0, Ur Specific [place] 1.015, Urine Protein 100 H, Urine Glucose (UA) Normal, Urine Ketones 50 H, Urine Occult Blood 25 H, Urine Nitrite Negative, Urine Bilirubin 1 H, Urine Urobilinogen Normal, Ur Leukocyte Esterase 500 H, Urine RBC 0 SEEN, Urine WBC 25-50 SEEN Rhythm: EKG: ECHO: Stress Test: Cardiac Cath: PCI: CT Surgery: Holter monitor: EPS: PPM: CXR: Chest CT Scan: Radiography Diagnostic Testing: Radiology Impression Chest X-Ray 05/20/24 12:20 IMPRESSION: No acute abnormality is seen. Reading Location: [id number]
--- NOTE | 2024-05-20 16:08 | PCM.CONS.C ---
Assessment & Plan Assessment/Plan (1) SHARMA (dyspnea on exertion): PLAN: Patient presented with what sounds to be heart failure exacerbation with dyspnea on exertion shortness of breath and PND. She was recently discharged from [facility] after complex percutaneous revascularization of her left main trunk LAD and circumflex. Patient's BNP is elevated today. Her troponins although minimally elevated at 93 dropped down to 82 on the delta troponin. I doubt this represents significant ischemia. EKG shows a chronic left bundle branch block. (2) Elevated troponin: PLAN: Troponin is probably elevated due to demand ischemia. Is related to her respiratory status as well as hypertension and diffuse atherosclerotic disease of the coronary arteries. (3) CHF exacerbation: QUALIFIERS: Heart failure type: diastolic Qualified Code(s): I50.33 - Acute on chronic diastolic (congestive) heart failure PLAN: This appears this is a acute exacerbation of her heart failure with preserved ejection fraction. Her hydrochlorothiazide was discontinued due to acute renal insufficiency that occurred with a contrast at her last intervention. Her creatinine is now back to baseline compared to January 2024. Creatinine clearance is 45. The patient's blood pressure is also elevated on presentation increasing myocardial oxygen demand and possibly exacerbating her diastolic heart failure. I would recommend the patient have a 2D echocardiogram done to evaluate her LV function it does not appear that she has not myocardial infarction in this setting given the fact she has a left main trunk stent as well as LAD and circumflex stents. If 1 of these were close she was certainly present in a much more compromised situation I would believe. (4) Coronary artery disease: QUALIFIERS: Coronary Disease-Associated Artery/Lesion type: [place] artery [place] vs. transplanted heart: alt[place] heart Associated angina: unspecified whether angina present Qualified Code(s): I25.10 - Atherosclerotic heart disease of alt[place] coronary artery without angina pectoris PLAN: The patient's prior anginal symptom was a prickly type chest pain which she has not had since her stenting procedure last week. At that time the patient received a stent to the mid lateral circumflex to the OM1 into the OM1 branch she received a stent to the mid LAD she received a stent to the proximal left main into the proximal LAD. There was also a second 4.0 mm stent in the ostium of the left main. This was done with Impella support. The patient was discharged on 05/17/2024 to home. We will evaluate her LV function with an echocardiogram. Will continue with secondary risk factor modifications and control of her blood pressure and gentle diuresis. (5) LBBB (left bundle branch block): PLAN: Patient is left bundle branch block was present [facility] an [facility]. She has a left bundle branch block left axis deviation normal sinus rhythm on her EKG today which is unchanged from the EKG at [facility]. PLAN: Plan 1. Patient will be admitted to progressive coronary care unit. 2. Recommend gentle diuresis and monitoring of her renal status. 3. Recommend reinstituting her hydrochlorothiazide for antihypertensive effect. Continue the amlodipine and her aspirin and clopidogrel. She had also been on clonidine in her home environment as well as losartan and metoprolol which should all be continued as blood pressure and heart rate tolerate. HPI Consult Data Date of Consult: 05/20/24 HPI Narrative Reason for Consultation: Shortness of breath and dyspnea on exertion with recent stenting. HPI Narrative: ANN PEARCE, is a 74 F who presents with progressive shortness of breath. The patient underwent complex Impella supported drug-eluting stents to the left main trunk LAD and circumflex. This was done at [facility] on 05/14/2024. The patient tolerated procedure well and was discharged to home on 05/17/2024. The patient did have some acute kidney injury at that time and her hydrochlorothiazide was discontinued. She was discharged home on metoprolol succinate 25 mg daily losartan 25 mg daily. This procedure was undertaken after a prolonged evaluation following a left heart catheterization done the end of January 2024 at [facility] by Dr. Penny. Patient was seen by interventional cardiology and cardiothoracic surgery at [facility]. They decided that she was not a surgical candidate despite her critical left main trunk lesion LAD and circumflex disease. This is due primarily to her comorbid states her morbid obesity and her deconditioning. The patient slowly underwent the complex procedure noted above. Of note the patient had an EKG done at [facility] 05/14/2024 that showed normal sinus rhythm with a prolonged [place] interval and a left bundle branch block with left axis deviation. This actually was new compared to the stress test done at [place] January 2024. Her EKG in the emergency room today shows a left bundle branch block with left anterior fascicular block and normal sinus rhythm unchanged from the one at [facility]. The patient's blood work showed initial troponin of 93 which dropped down to 82 on the repeat delta troponin. BNP was 1118. BUN was 18 creatinine 1.3 with a creatinine clearance of 45 which is unchanged from January 2024. The patient reports that she did fairly well in her home environment until this morning when she awoke and was profoundly short of breath. Patient carries a past medically significant for hypertension, hyperlipidemia, known coronary disease, heart failure with preserved ejection fraction, diabetes, neuropathy, chronic kidney disease IIIA, obesity, obstructive sleep apnea and COPD. The patient's labs are consistent with UTI and her lactic acid is 2.1. [facility] Medical History Lesion of bladder Nonadherence to medication Depression Uses wheelchair Bladder disease Back pain Hx of falling Shortness of breath on exertion History of pain when walking History of echocardiogram History of stress test Hypertension History of CHF (congestive heart failure) Pain Uses wheelchair CPAP (continuous positive airway pressure) dependence History of heart attack (HFpEF) heart failure with preserved ejection fraction Wears glasses Wears dentures Insulin dependent diabetes mellitus Walker as ambulation aid Arthritis Pulmonary embolism Restless legs Back pain Dietary restriction History of IBS Gastric reflux Non-smoker On home oxygen therapy COPD (chronic obstructive pulmonary disease) Asthma Shortness of breath on exertion History of edema Hx of transesophageal echocardiography (MARIELLA) for monitoring Cardiology follow-up encounter COVID-19 determined by clinical diagnostic criteria Atherosclerosis of alturas coronary artery of alturas heart without angina pectoris Essential hypertension Dehydration Dehydration with hyponatremia Recurrent falls JILL (acute kidney injury) Carpal tunnel syndrome Seasonal allergies Chronic bronchitis Vitamin D deficiency Hyperlipidemia Diabetic peripheral neuropathy Hypokalemia IBS (irritable bowel syndrome) Insomnia Spinal stenosis of lumbar region DDD (degenerative disc disease), cervical Disequilibrium DM (diabetes mellitus), type 2, uncontrolled GERD (gastroesophageal reflux disease) Gastroenteritis Morbid obesity Atrial septal defect Pulmonary emboli Edema Abnormal echocardiogram SOB (shortness of breath) Obesity (BMI 35.0-39.9 without comorbidity) SHANNON (obstructive sleep apnea) Anxiety and depression Cystitis, acute Sepsis Restless leg syndrome Hypertension DM (diabetes mellitus), type 2, uncontrolled Asthma Home Medications ?Medication ?Instructions ?Recorded ?Last Taken ?Type ropinirole 4 mg tablet 4 mg PO BID RLS 02/23/13 02/17/24 History aspirin 81 mg tablet,delayed 81 mg PO DAILY heart health 07/06/20 02/17/24 History release (Adult Low Dose Aspirin) omeprazole 40 mg capsule,delayed 40 mg PO DAILY 07/06/20 02/17/24 History release potassium chloride 20 mEq 20 meq PO DAILY 11/09/21 02/17/24 History tablet,extended release amlodipine 5 mg tablet 5 mg PO DAILY #30 tabs 07/29/22 02/17/24 Rx clonidine HCl 0.1 mg tablet 0.1 mg PO BID 07/29/22 02/17/24 History ezetimibe 10 mg tablet 10 mg PO DAILY #90 TABLETS 09/01/23 02/17/24 Rx duloxetine 30 mg capsule,delayed 30 mg PO DAILY 10/01/23 02/17/24 History release pregabalin 75 mg capsule 75 mg PO BID 10/01/23 02/17/24 History acetaminophen 500 mg tablet 650 mg (1.3 x 500 mg) PO Q6H PRN 10/03/23 02/17/24 Rx Pain Score 1-5/10 #0 tabs albuterol sulfate 90 mcg/actuation 2 puff inhalation Q4H PRN 01/01/24 02/17/24 Rx aerosol inhaler shortness of breath or wheezing #8.5 grams insulin glargine 100 unit/mL (3 50 unit subcut BID 01/12/24 Unknown History mL) subcutaneous pen (Lantus Solostar U-100 Insulin) insulin lispro 100 unit/mL 20 unit subcut BID 01/12/24 Unknown History subcutaneous pen (Humalog KwikPen (U-100) Insulin) albuterol sulfate 2.5 mg/3 mL 2.5 mg inhalation PRN PRN 01/20/24 Unknown History (0.083 %) solution for nebulization shortness of breath or wheezing vibegron 75 mg tablet (Gemtesa) 75 mg PO DAILY 02/04/24 02/09/24 History clopidogrel 75 mg tablet 75 mg PO DAILY 05/20/24 Unknown History losartan 25 mg tablet 25 mg PO DAILY 05/20/24 Unknown History metoprolol succinate 25 mg 25 mg PO DAILY 05/20/24 Unknown History tablet,extended release 24 hr oxycodone-acetaminophen 5 mg-325 tab 05/20/24 Unknown History mg tablet pantoprazole 40 mg tablet,delayed 40 mg PO DAILY 05/20/24 Unknown History release rosuvastatin 20 mg tablet 10 mg PO DAILY 05/20/24 Unknown History Allergy/AdvReac Type Severity Reaction Status Date / Time rivaroxaban (From Xarelto) Allergy Intermediate Itching Verified 05/20/24 11:22 Environmental Allergies: Allergy PT UNABLE Verified 05/20/24 11:22 Uncoded TO RESPOND-NEEDS F/U latex Allergy Itching Verified 02/09/24 08:21 pravastatin Allergy Unknown Verified 05/20/24 11:22 codeine AdvReac Severe Itching Verified 05/20/24 11:22 zolpidem (From Ambien) AdvReac Severe Sleep Verified 05/20/24 11:22 walking/talking Family History Father Heart disease Hypertension CAD (coronary artery disease) Arthritis Mother Hypertension Asthma Diabetes Heart disease COPD (chronic obstructive pulmonary disease) Surgical History Hx of cystoscopy Hx of hammer toe correction History of toe surgery Hx of left cataract extraction Hx of right cataract extraction History of carpal tunnel surgery of right wrist History of carpal tunnel surgery of left wrist History of cardiac catheterization History of laparoscopic cholecystectomy sciatic nerve cauterization History of laminectomy (~07/2015) History of back surgery (~2018) History of umbilical hernia repair (~08/2012) History of cholecystectomy (~09/2011) History of appendectomy Social History household members: spouse housing: house Smoking Status: Never smoker second hand exposure: No alcohol intake: current alcohol intake frequency: holidays/special occasions only Alcohol type: beer and hard liquor substance use type: does not use caffeine: Yes Type: coffee Number of servings: 1 and tea what type of physical activity do you participate in: other details: physical therapy frequency: 1-2 times per week seatbelt use: always do you feel safe at home: Yes ROS Constitutional Constitutional: Reports as per HPI Eyes Eyes: Reports systems reviewed and no addt'l complaints, except as documented ENT HEENT: Reports systems reviewed and no addt'l complaints, except as documented Cardiovascular Cardiovascular: Reports as per HPI Respiratory/Chest Respiratory/Chest: Reports as per HPI Gastrointestinal Gastrointestinal: Reports systems reviewed and no addt'l complaints, except as documented Genitourinary Genitourinary: Reports as per HPI Musculoskeletal Musculoskeletal: Reports as per HPI Integumentary Integumentary: Reports as per HPI Neurologic Neurologic: Reports as per HPI Psychiatric Psychiatric: Reports systems reviewed and no addt'l complaints, except as documented Endocrine Endocrinology: Reports as per HPI Hematologic/Lymphatic Hematologic/Lymphatic: Reports as per HPI Allergic/Immunologic Allergic/Immunologic: Reports systems reviewed and no addt'l complaints, except as documented Risk Stratification Risk Stratification Applicable: Yes Age >/= 65: Yes >/= 3 CAD Risk Factors (HTN, HLD, DM, family hx of CAD, or current smoker): Yes Aspirin Use in the Past 7 Days: Yes Severe Angina (>/= episodes in 24 hours): No EKG ST Changes >/= 0.5mm: No Positive Cardiac Marker: Yes JAGDISH Risk Stratification Score: 4 JAGDISH % Risk: 20% Risk Charges/Coding Visit Charges Inpatient E&M: 69208 Init Hosp L3 Objective Data Vital Signs: Vital Signs Temp Pulse Resp BP Pulse Ox O2 Del Method O2 Flow Rate 98.9 F 108 H 21 H 153/78 H 93 Nasal Cannula 2 05/20/24 15:41 05/20/24 16:06 05/20/24 15:41 05/20/24 16:06 05/20/24 15:41 05/20/24 15:00 05/20/24 15:00 Oxygen Flow Rate (L/min) 2 Oxygen Delivery Method Nasal Cannula Weight: 255 lb 11.779 oz Body Mass Index (BMI) 43.9 Intake & Output: Intake and Output for Last 24 Hours 05/18/24 05/19/24 05/20/24 23:59 23:59 23:59 Intake Total 1000 / 1000 Balance 1000 / 1000 Lab / Micro Data Attestation: I reviewed the patient's lab results. 05/20/24 11:41 05/20/24 11:41 Labs: Laboratory Results - last 24 hr 05/20/24 11:41: WBC 4.8, RBC 4.43, Hgb 12.7, Hct 39.8, MCV 89.8, MCH 28.7, MCHC 31.9 L, RDW Std Deviation 43.8, RDW Coeff of Mitzy 13.4, Plt Count 248, MPV 9.6, Immature Gran % (Auto) 1.300 H, Neut % (Auto) 61.6, Lymph % (Auto) 23.9, [place] % (Auto) 10.9 H, Eos % (Auto) 1.9, Baso % (Auto) 0.4, Absolute Neuts (auto) 2.9, Absolute Lymphs (auto) 1.14, Nucleated RBC % 0, PT 13.5, INR 1.0, APTT 23.6 L, Sodium 136, Potassium 4.4, Chloride Direct 100, Carbon Dioxide 17.0 L, Anion Gap 19 H, BUN 18, Creatinine 1.3 H, Estim Creat Clear Calc 48.20, Est GFR (MDRD) Non-Af 45 L, BUN/Creatinine Ratio 14.3, Glucose 169 H, Calcium 9.4, Troponin T High Sens 93 H*, NT pro BNP II 1118 H 05/20/24 12:07: Lactic Acid 2.1 H 05/20/24 12:46: Urine Color Yellow, Urine Clarity Cloudy, Urine pH 6.0, Ur Specific [place] 1.015, Urine Protein 100 H, Urine Glucose (UA) Normal, Urine Ketones 50 H, Urine Occult Blood 25 H, Urine Nitrite Negative, Urine Bilirubin 1 H, Urine Urobilinogen Normal, Ur Leukocyte Esterase 500 H, Urine RBC 0 SEEN, Urine WBC 25-50 SEEN, Ur Squamous Epith Cells 0-5 SEEN, Urine Bacteria 0 SEEN, Urine Mucus 0 SEEN, Urine Yeast 1+ 05/20/24 14:15: Troponin T Hi Sens 2 Hr 82 H*, Troponin T Hi Sens 2Hr Delta 11 Micro: Microbiology 05/20/24 12:00 Mucosa - Nose SARS-CoV-2, Influenza & RSV (PCR) - Final Rhythm Strip Rhythm Strip: Sinus Rhythm Rate: 95 Cardiology Labs/Tests 05/20/24 11:41: WBC 4.8, RBC 4.43, Hgb 12.7, Hct 39.8, MCV 89.8, MCH 28.7, MCHC 31.9 L, Plt Count 248, MPV 9.6, Immature Gran % (Auto) 1.300 H, Neut % (Auto) 61.6, Lymph % (Auto) 23.9, [place] % (Auto) 10.9 H, Eos % (Auto) 1.9, Baso % (Auto) 0.4, Absolute Neuts (auto) 2.9, Nucleated RBC % 0, PT 13.5, INR 1.0, APTT 23.6 L, Sodium 136, Potassium 4.4, Carbon Dioxide 17.0 L, Anion Gap 19 H, BUN 18, Creatinine 1.3 H, Est GFR (MDRD) Non-Af 45 L, BUN/Creatinine Ratio 14.3, Glucose 169 H, Calcium 9.4 05/20/24 12:07: Lactic Acid 2.1 H 05/20/24 12:46: Urine Color Yellow, Urine Clarity Cloudy, Urine pH 6.0, Ur Specific [place] 1.015, Urine Protein 100 H, Urine Glucose (UA) Normal, Urine Ketones 50 H, Urine Occult Blood 25 H, Urine Nitrite Negative, Urine Bilirubin 1 H, Urine Urobilinogen Normal, Ur Leukocyte Esterase 500 H, Urine RBC 0 SEEN, Urine WBC 25-50 SEEN Rhythm: EKG: ECHO: Stress Test: Cardiac Cath: PCI: CT Surgery: Holter monitor: EPS: PPM: CXR: Chest CT Scan: Radiography Diagnostic Testing: Radiology Impression Chest X-Ray 05/20/24 12:20 IMPRESSION: No acute abnormality is seen. Reading Location: [id number]
[2024-05-20 17:01] LABS: TROPONIN VARIANCE 4 HR 14; Troponin T High Sens 4 HR 78 ng/L (<=14)
--- NOTE | 2024-05-20 18:30 | ECHOCS_ITS ---
Reason For Study Reason For Study: CHF Procedure This was a 2D Doppler, Color Flow transthoracic echocardiogram. The study was technically difficult. Contrast injection was performed. Echo done with patient supine due to condition. Exam performed portable in patient room. Left Ventricle Normal LV size. The estimated ejection fraction is 70 %. No evidence for diastolic dysfunction. No regional wall motion abnormalities noted. Right Ventricle Normal RV size. Normal systolic function. Atria The left and right atria are normal. No doppler evidence for ASD. Mitral Valve There is no mitral valve stenosis. No mitral valve insufficiency. Tricuspid Valve There is no tricuspid stenosis. Trivial tricuspid valve insufficiency. Unable to estimate RV systolic pressure due to insufficient tricuspid regurgitant envelope. Aortic Valve Aortic sclerosis, no stenosis. Trisinus/trileaflet aortic valve. There is no aortic stenosis. No aortic valve insufficiency. Pulmonic Valve There is no pulmonic valvular stenosis. No pulmonic valve insufficiency. Great Vessels Normal sized aortic root. Pericardium/Pleural No pericardial effusion. Medication Diluted definity 2ml given slow IV push to enhance endocardial definition. MMode/2D Measurements & Calculations LVIDd: 4.5 cm IVSd: 1.2 cm Ao root diam: 4.0 cm LVIDs: 3.1 cm LVPWd: 0.92 cm RVDd: 4.5 cm FS: 31.2 % LAV(MOD-bp): 55.5 ml LVAd ap4: 32.6 cm2 SV(MOD-sp4): 69.4 ml LAV(MOD-bp) Indexed: 25.7 ml/m2 LVLd ap4: 8.4 cm SI(MOD-sp4): 32.1 ml/m2 LAV(MOD-sp2): 60.5 ml EDV(MOD-sp4): 103.5 ml LAV(MOD-sp4): 51.4 ml EDV(sp4-el): 107.4 ml LVAs ap4: 17.6 cm2 LVLs ap4: 7.5 cm ESV(MOD-sp4): 34.2 ml ESV(sp4-el): 35.1 ml EF(MOD-sp4): 67.0 % EF(sp4-el): 67.3 % SV(sp4-el): 72.3 ml LA A4 area: 19.7 cm2 LA dimension(2D): 4.2 cm RA A4 area: 25.9 cm2 Time Measurements MV dec time: 0.15 sec Doppler Measurements & Calculations MV E max ray: 125.2 cm/sec Lat Peak E' Ray: 11.2 cm/sec Med Peak E' Ray: 10.5 cm/sec MV A max ray: 52.1 cm/sec E/E' lat: 11.2 E/E' med: 11.9 MV E/A: 2.4 MV V2 max: 143.0 cm/sec MV dec slope: 817.7 cm/sec2 Ao V2 max: 131.1 cm/sec MV max P.2 mmHg Ao max P.9 mmHg MV V2 mean: 77.5 cm/sec Ao V2 mean: 87.8 cm/sec MV mean P.1 mmHg Ao mean P.6 mmHg MV V2 VTI: 25.4 cm Ao V2 VTI: 25.4 cm AV (velocity ratio): 0.79 LV V1 max: 96.8 cm/sec PA V2 max: 129.6 cm/sec LV V1 max P.7 mmHg PA V2 mean: 84.4 cm/sec LV V1 mean P.2 mmHg LV V1 mean: 70.3 cm/sec LV V1 VTI: 20.1 cm ECHO/Echo Complete W/ Contrast Interpretation Summary The estimated ejection fraction is 70 %. No evidence for diastolic dysfunction. Ordering Physician: Kali Pineda Referring Physician: Kali Pineda Performed By: David Johnson RCS
[2024-05-20] MEDS: Furosemide 40 MG/4 ML Vial IV (19:08)
[2024-05-20] MEDS: Clopidogrel Bisulfate 75 MG Tablet PO (19:13)
[2024-05-20 19:18] LABS: Bedside Glucose 123 mg/dL (74-106)
--- NOTE | 2024-05-20 20:27 | CM.ED ---
Care Management Face to Face with patient for initial transition planning/care coordination assessment in the ED.? This check writer introduced self and role at [facility]. Patient alert and oriented. Patient willing to participate in assessment and is able to answer all questions appropriately.? Care providers, pharmacy, and demographics verified. Admitting Diagnosis:? shortness of breath, heart failure Other diagnosis history: ?hypertension, heart failure, diabetes, COPD, JILL PCP: ?[facility]: eligibility consultant in [place], unable to recall name Preferred Pharmacy: [facility]? Insurance: ?[employer] Prescription Benefit: yes Living Will/HPOA: ?states she has both at home LNOK: Living Arrangements: lives with in [facility], has ramp to enter.? Patient states she has been unable to complete her ADLs, that she has not showered in a week and she has a hard time getting herself to the bathroom, cooks all meals, and does cleaning Transportation: ?she drives once a month to an appt. DME: walker , rollator, wheelchair Oxygen: Has oxygen/concentrator through [employer], supposed to be on 3 L. Patient states she only wears it when she absolutely has to because it makes her nose break out in a rash and itch. HHC: ?none SNF/Rehab: none Community Resources: ?none Behavioral Health History: ?depression and anxiety Patient goals: ?Discharge plans are uncertain. Disposition Plan: admission to acute; RN CM/SW to follow for discharge planning needs that may arise. Kayleen Hicks, BLANKET BINDER, STAFF VETERINARIAN
[2024-05-20] MEDS: Ipratropium/Albuterol Sulfate 3 ML AMPUL.NEB INHALATION (21:35)
[2024-05-20] MEDS: Insulin Lispro 100 UNIT/ML INSULN.PEN SC (22:21)
[2024-05-20] MEDS: Insulin Lispro 100 UNIT/ML INSULN.PEN 20 UNIT SC (22:21)
[2024-05-20] MEDS: Insulin Glargine-YFGN 100 UNIT/ML Pen 50 UNIT SC (22:22)
[2024-05-20] MEDS: Pramipexole Di-HCl 0.25 MG Tablet 0.75 MG PO (22:23)
[2024-05-20] MEDS: cloNIDine HCl 0.1 MG Tablet PO (22:25)
[2024-05-20] MEDS: Enoxaparin 40 MG/0.4 ML Syringe SC (22:26)
[2024-05-20] MEDS: Pregabalin 75 MG Capsule PO (22:29)
[2024-05-20 22:32] LABS: Bedside Glucose 235 mg/dL (74-106)
[2024-05-21] VITALS (12 sets, daily range): BP systolic 112–142; BP diastolic 60–76; PULSE 78–89; RESP 17–20; TEMP 36.4–36.6; O2SAT 94–96
[2024-05-21 05:30] LABS: Absolute Lymphocyte Count 0.47 X10^3/uL (0.83-4.51); Absolute Neutrophil Count 4.3 X10^3/uL (2.0-7.7); Basophil# 0.01 X10^3/uL; Basophil% 0.2 % (0-1); Eosinophil# 0.01 X10^3/uL; Eosinophils% 0.2 % (0-5); Hematocrit 33.2 % (37-47); Hemoglobin 10.6 g/dL (12.0-15.0); Lymphocyte # 0.47 X10^3/ul (0.83-4.51); Lymphocyte % 9.6 % (19-41); Mean Corp Hgb Conc 31.9 g/dL (32-36); Mean Corpuscular Hgb 28.6 pg (27.0-32.0); Mean Corpuscular Volume 89.7 fL (81-99); Mean Platelet Vol. 9.6 fl (6.2-12.0); Monocyte# 0.05 X10^3/uL; NRBC Flagged by Analyzer 0 % (0-5); Neutrophil # 4.28 X10^3/uL (2.7-7.7); Neutrophil % 87.8 % (47-70); POSITIVE DIFFERENTIAL YES; Platelet Count 248 K/mm3 (150-450); RBC Distribution Width CV 13.2 % (11.6-14.6); RBC Distribution Width SD 43.6 fl (35.1-43.9); White Blood Count 4.9 K/mm3 (4.4-11.0)
[2024-05-21] MEDS: Pramipexole Di-HCl 0.25 MG Tablet 0.75 MG PO ×3 (05:39→22:16)
[2024-05-21 05:55] LABS: Anion Gap 14 (5-15); BUN 20 mg/dL (4-19); BUN/Creat Ratio 16.8 RATIO (10-20); Calcium 8.2 mg/dL (7.6-11.0); Chloride 103 mmol/L (96-108); Creatinine, Serum 1.16 mg/dL (0.70-1.20); EST Glomerular Filtration Rate 50 (>60); Estimated Creatinine Clearance 53.58 ml/min; Glucose 237 mg/dL (70-99); Sodium Level 136 mmol/L (133-145)
[2024-05-21] MEDS: Ipratropium/Albuterol Sulfate 3 ML AMPUL.NEB INHALATION ×4 (07:21→20:26)
--- NOTE | 2024-05-21 08:40 | PCM.PN.CARD ---
Subjective Subjective Patient is complaining of some episodic sharp lower retrosternal discomfort. It comes and goes. Her cardiovascular enzymes are not consistent with an acute ischemic event. They are trending downward probably results of her recent complex stenting procedure at [facility] earlier this week. The patient's left bundle branch block was present back on May 14 and I put a copy of that EKG from [facility] on her chart. I also put a copy of the patient's discharge summary and procedure report from last week. She was discharged May 18. The patient denies any significant change in her breathing she is on nasal cannula at home. Objective Data Vital Signs: Vital Signs Temp Pulse Resp BP Pulse Ox O2 Del Method O2 Flow Rate 97.8 F 83 18 142/74 H 94 Nasal Cannula 3 05/21/24 08:35 05/21/24 08:35 05/21/24 08:35 05/21/24 08:35 05/21/24 08:35 05/21/24 08:35 05/21/24 08:35 Oxygen Flow Rate (L/min) 3 Oxygen Delivery Method Nasal Cannula Weight: 252 lb 3.341 oz Body Mass Index (BMI) 43.0 Intake & Output: Intake and Output for Last 24 Hours 05/19/24 05/20/24 05/21/24 23:59 23:59 23:59 Intake Total 1050 / 1150 200 / 200 Output Total 750 / 750 Balance 1050 / 550 -550 / -550 Lab / Micro Data 05/21/24 04:56 05/21/24 04:56 Labs: Laboratory Results - last 24 hr 05/20/24 11:41: WBC 4.8, RBC 4.43, Hgb 12.7, Hct 39.8, MCV 89.8, MCH 28.7, MCHC 31.9 L, RDW Std Deviation 43.8, RDW Coeff of Mitzy 13.4, Plt Count 248, MPV 9.6, Immature Gran % (Auto) 1.300 H, Neut % (Auto) 61.6, Lymph % (Auto) 23.9, [place] % (Auto) 10.9 H, Eos % (Auto) 1.9, Baso % (Auto) 0.4, Absolute Neuts (auto) 2.9, Absolute Lymphs (auto) 1.14, Nucleated RBC % 0, PT 13.5, INR 1.0, APTT 23.6 L, Sodium 136, Potassium 4.4, Chloride Direct 100, Carbon Dioxide 17.0 L, Anion Gap 19 H, BUN 18, Creatinine 1.3 H, Estim Creat Clear Calc 48.20, Est GFR (MDRD) Non-Af 45 L, BUN/Creatinine Ratio 14.3, Glucose 169 H, Calcium 9.4, Troponin T High Sens 93 H*, NT pro BNP II 1118 H 05/20/24 12:07: Lactic Acid 2.1 H 05/20/24 12:46: Urine Color Yellow, Urine Clarity Cloudy, Urine pH 6.0, Ur Specific [place] 1.015, Urine Protein 100 H, Urine Glucose (UA) Normal, Urine Ketones 50 H, Urine Occult Blood 25 H, Urine Nitrite Negative, Urine Bilirubin 1 H, Urine Urobilinogen Normal, Ur Leukocyte Esterase 500 H, Urine RBC 0 SEEN, Urine WBC 25-50 SEEN, Ur Squamous Epith Cells 0-5 SEEN, Urine Bacteria 0 SEEN, Urine Mucus 0 SEEN, Urine Yeast 1+ 05/20/24 14:15: Troponin T Hi Sens 2 Hr 82 H*, Troponin T Hi Sens 2Hr Delta 11 05/20/24 15:50: Troponin T Hi Sens 4Hr 78 H*, Troponin T Hi Sens 4Hr Delta 14 05/20/24 18:38: POC Glucose 123 H 05/20/24 22:13: POC Glucose 235 H 05/21/24 04:56: WBC 4.9, RBC 3.70 L, Hgb 10.6 L, Hct 33.2 L, MCV 89.7, MCH 28.6, MCHC 31.9 L, RDW Std Deviation 43.6, RDW Coeff of Mitzy 13.2, Plt Count 248, MPV 9.6, Immature Gran % (Auto) 1.200 H, Neut % (Auto) 87.8 H, Lymph % (Auto) 9.6 L, [place] % (Auto) 1.0, Eos % (Auto) 0.2, Baso % (Auto) 0.2, Absolute Neuts (auto) 4.3, Absolute Lymphs (auto) 0.47 L, Nucleated RBC % 0, Sodium 136, Potassium 4.0, Chloride Direct 103, Carbon Dioxide 19.0 L, Anion Gap 14, BUN 20 H, Creatinine 1.16, Estim Creat Clear Calc 53.58, Est GFR (MDRD) Non-Af 50 L, BUN/Creatinine Ratio 16.8, Glucose 237 H, Hemoglobin A1c 11.0, Calcium 8.2 Micro: Microbiology 05/20/24 12:00 Mucosa - Nose SARS-CoV-2, Influenza & RSV (PCR) - Final Rhythm Strip Rhythm Strip: Sinus Rhythm Rate: 80 Cardiology Labs/Tests 05/20/24 11:41: WBC 4.8, RBC 4.43, Hgb 12.7, Hct 39.8, MCV 89.8, MCH 28.7, MCHC 31.9 L, Plt Count 248, MPV 9.6, Immature Gran % (Auto) 1.300 H, Neut % (Auto) 61.6, Lymph % (Auto) 23.9, [place] % (Auto) 10.9 H, Eos % (Auto) 1.9, Baso % (Auto) 0.4, Absolute Neuts (auto) 2.9, Nucleated RBC % 0, PT 13.5, INR 1.0, APTT 23.6 L, Sodium 136, Potassium 4.4, Carbon Dioxide 17.0 L, Anion Gap 19 H, BUN 18, Creatinine 1.3 H, Est GFR (MDRD) Non-Af 45 L, BUN/Creatinine Ratio 14.3, Glucose 169 H, Calcium 9.4 05/20/24 12:07: Lactic Acid 2.1 H 05/20/24 12:46: Urine Color Yellow, Urine Clarity Cloudy, Urine pH 6.0, Ur Specific [place] 1.015, Urine Protein 100 H, Urine Glucose (UA) Normal, Urine Ketones 50 H, Urine Occult Blood 25 H, Urine Nitrite Negative, Urine Bilirubin 1 H, Urine Urobilinogen Normal, Ur Leukocyte Esterase 500 H, Urine RBC 0 SEEN, Urine WBC 25-50 SEEN 05/21/24 04:56: WBC 4.9, RBC 3.70 L, Hgb 10.6 L, Hct 33.2 L, MCV 89.7, MCH 28.6, MCHC 31.9 L, Plt Count 248, MPV 9.6, Immature Gran % (Auto) 1.200 H, Neut % (Auto) 87.8 H, Lymph % (Auto) 9.6 L, [place] % (Auto) 1.0, Eos % (Auto) 0.2, Baso % (Auto) 0.2, Absolute Neuts (auto) 4.3, Nucleated RBC % 0, Sodium 136, Potassium 4.0, Carbon Dioxide 19.0 L, Anion Gap 14, BUN 20 H, Creatinine 1.16, Est GFR (MDRD) Non-Af 50 L, BUN/Creatinine Ratio 16.8, Glucose 237 H, Hemoglobin A1c 11.0, Calcium 8.2 Rhythm: EKG: ECHO: Stress Test: Cardiac Cath: PCI: CT Surgery: Holter monitor: EPS: PPM: CXR: Chest CT Scan: Radiography Diagnostic Testing: Radiology Impression Chest X-Ray 05/20/24 12:20 IMPRESSION: No acute abnormality is seen. Reading Location: [facility] Physical Exam Const alert and oriented x3 HEENT normocephalic Eyes PERRL Neck no carotid bruits Chest inspection of chest normal Resp normal respiratory effort and clear to auscultation bilaterally Resp Narrative: Nasal cannula oxygen in place. Cardio Cardio Narrative: Distant heart tones due to body habitus. Rate: regular rate Rhythm: regular rhythm Heart Sounds: S1 normal and S2 normal; Negative for click, gallop or murmur GI soft to palpation Extremity Extremity Narrative: Mild brawny edematous changes with hyperkeratotic skin of the lower extremities. Trace to 1+ edema. General Extremity: edema bilateral lower extremity Details: trace Neuro Neuro Narrative: Alert and oriented x 3 Psych mental status grossly normal Assessment & Plan Assessment/Plan (1) LBBB (left bundle branch block): PLAN: The patient's left bundle branch block was documented on May 14, 2024 at [facility]. This is not a new left bundle branch block. She does have left axis deviation. This can be seen in the face of LV dysfunction. A 2D echocardiogram is pending at this time. (2) SHARMA (dyspnea on exertion): PLAN: Patient's dyspnea on exertion is most likely multifactorial. The patient is morbidly obese she has significant COPD there is no documented LV dysfunction her last EF of 60% was documented in 2022. A 2D echocardiogram is pending at this time. Further recommendations concerning cardiovascular medical titration will be forthcoming once results of the echo were known. (3) Elevated troponin: PLAN: Patient's troponins have trended down since admission. This probably represents a complex left main trunk LAD and circumflex stenting that was performed May 18, 2024. The patient does not have the appearance of an acute coronary syndrome. She has multiple other potential etiologies for this noncardiac chest discomfort. Her previous anginal symptom appeared to be a pins sticking type sensation which she denies at this time. (4) Chest pain: QUALIFIERS: Chest pain type: unspecified Qualified Code(s): R07.9 - Chest pain, unspecified PLAN: Given the patient's lab work chronic left bundle branch block and atypical different chest pain from what she experienced prior to her intervention I do not feel that this chest pain represents an acute cardiac event. (5) Coronary artery disease: QUALIFIERS: Coronary Disease-Associated Artery/Lesion type: [place] artery [place] vs. transplanted heart: [place] heart Associated angina: unspecified whether angina present Qualified Code(s): I25.10 - Atherosclerotic heart disease of [place] coronary artery without angina pectoris PLAN: Patient is status post stenting of the left main trunk proximal and mid LAD and the circumflex at [facility] May 18, 2024 with her discharge day. The patient must remain on dual antiplatelet therapy uninterrupted probably for the rest of her life but definitely uninterrupted for a year due to the left main trunk stenting. PLAN: Plan 1. Will follow-up after results of the echocardiogram are available to determine if further medical manipulations are indicated. 2. Recommend the patient be evaluated for physical therapy and possible rehab. Charges/Coding Visit Charges Inpatient E&M: 13804 Subs Hosp L3
--- NOTE | 2024-05-21 09:04 | CASEMGMT ---
Discharge Planning A list of?SNF providers including quality and resource use data and consistent with the patient's preferred geographic region, medical needs, and insurance network was created in [employer] Guide.? This list was provided to the SW. Caitlyn Rain Discharge Planning Asst.
[2024-05-21] MEDS: predniSONE 20 MG Tablet 40 MG PO (09:11)
[2024-05-21] MEDS: Potassium Chloride Oral Tablet 20 MEQ PO (09:11)
[2024-05-21] MEDS: cloNIDine HCl 0.1 MG Tablet PO ×2 (09:11→22:15)
[2024-05-21] MEDS: DULoxetine Hcl 30 MG Capsule PO (09:11)
[2024-05-21] MEDS: Aspirin E.C. 81 MG Tablet PO (09:11)
[2024-05-21] MEDS: Vibegron 75 MG TABLET PO (09:11)
[2024-05-21] MEDS: Atorvastatin Calcium 20 MG Tablet PO (09:12)
[2024-05-21] MEDS: Furosemide 40 MG/4 ML Vial IV ×2 (09:12→16:45)
[2024-05-21] MEDS: Clopidogrel Bisulfate 75 MG Tablet PO (09:13)
[2024-05-21] MEDS: Pregabalin 75 MG Capsule PO ×2 (09:13→22:16)
[2024-05-21] MEDS: Pantoprazole Sodium 40 MG Tablet PO (09:13)
[2024-05-21] MEDS: Ceftriaxone 1 GM/50 ML BAG IV (09:13)
[2024-05-21] MEDS: Enoxaparin 40 MG/0.4 ML Syringe SC ×2 (09:13→22:17)
[2024-05-21] MEDS: Metoprolol(XL)Succ 25 MG Tablet PO (09:13)
[2024-05-21] MEDS: Ezetimibe 10 MG Tablet PO (09:14)
[2024-05-21 09:23] LABS: Bedside Glucose 252 mg/dL (74-106)
[2024-05-21] MEDS: Insulin Lispro 100 UNIT/ML INSULN.PEN 20 UNIT SC ×2 (09:36→16:50)
[2024-05-21] MEDS: Insulin Lispro 100 UNIT/ML INSULN.PEN SC ×4 (09:36→22:19)
[2024-05-21] MEDS: Insulin Glargine-YFGN 100 UNIT/ML Pen 50 UNIT SC ×2 (09:37→22:21)
--- NOTE | 2024-05-21 10:06 | CASEMGMT ---
Therapy notified SW that patient needs to go somewhere for rehab and patient was agreeable. SW met with patient. Introduced self and role at [facility]. Patient confirmed she is agreeable to go somewhere. SW provided patient with a list. SW explained to patient she would need to pick 3 or 4 places she would be okay with and SW will take care of checking with the facilities. Patient said she may not be able to read it unless her brings in her glasses. Patient said it would be okay if SW called her to bring her glasses to [facility]. SW tried to call patient's , but there was no answer. SW will try again. Plan: SNF pending patient choices, accepting facility, and pre-cert. Michelle HAWLEY
[2024-05-21] MEDS: amLODIPine 5 MG Tablet PO (11:38)
[2024-05-21] MEDS: Losartan Potassium 25 MG Tablet PO (11:38)
[2024-05-21 11:57] LABS: Bedside Glucose 267 mg/dL (74-106)
--- NOTE | 2024-05-21 12:31 | PCM.PN.HOSP ---
Subjective Subjective Seems fatigued and has some chest pain because she recently had intervention done at an outside hospital earlier this week and she was discharged from that facility on the Objective Data Objective Data Vital Signs: Vital Signs Temp Pulse Resp BP Pulse Ox O2 Del Method O2 Flow Rate 97.8 F 81 20 H 133/76 H 96 Nasal Cannula 3 05/21/24 08:35 05/21/24 11:37 05/21/24 10:16 05/21/24 11:37 05/21/24 11:37 05/21/24 11:37 05/21/24 11:37 Oxygen Flow Rate (L/min) 3 Oxygen Delivery Method Nasal Cannula Weight: 252 lb 3.341 oz Body Mass Index (BMI) 43.0 Intake & Output: Intake and Output for Last 24 Hours 05/20/24 05/21/24 05/22/24 03:59 03:59 03:59 Intake Total 1150 / 1150 150 / 150 Output Total 600 / 600 150 / 150 Balance 550 / 550 0 / 0 Lab / Micro Data 05/21/24 04:56 05/21/24 04:56 Labs: Laboratory Results - last 24 hr 05/20/24 11:41: Sodium 136, Potassium 4.4, Chloride Direct 100, Carbon Dioxide 17.0 L, Anion Gap 19 H, BUN 18, Creatinine 1.3 H, Estim Creat Clear Calc 48.20, Est GFR (MDRD) Non-Af 45 L, BUN/Creatinine Ratio 14.3, Glucose 169 H, Calcium 9.4, Troponin T High Sens 93 H*, NT pro BNP II 1118 H 05/20/24 12:07: Lactic Acid 2.1 H 05/20/24 12:46: Urine Color Yellow, Urine Clarity Cloudy, Urine pH 6.0, Ur Specific [place] 1.015, Urine Protein 100 H, Urine Glucose (UA) Normal, Urine Ketones 50 H, Urine Occult Blood 25 H, Urine Nitrite Negative, Urine Bilirubin 1 H, Urine Urobilinogen Normal, Ur Leukocyte Esterase 500 H, Urine RBC 0 SEEN, Urine WBC 25-50 SEEN, Ur Squamous Epith Cells 0-5 SEEN, Urine Bacteria 0 SEEN, Urine Mucus 0 SEEN, Urine Yeast 1+ 05/20/24 14:15: Troponin T Hi Sens 2 Hr 82 H*, Troponin T Hi Sens 2Hr Delta 11 05/20/24 15:50: Troponin T Hi Sens 4Hr 78 H*, Troponin T Hi Sens 4Hr Delta 14 05/20/24 18:38: POC Glucose 123 H 05/20/24 22:13: POC Glucose 235 H 05/21/24 04:56: WBC 4.9, RBC 3.70 L, Hgb 10.6 L, Hct 33.2 L, MCV 89.7, MCH 28.6, MCHC 31.9 L, RDW Std Deviation 43.6, RDW Coeff of Mitzy 13.2, Plt Count 248, MPV 9.6, Immature Gran % (Auto) 1.200 H, Neut % (Auto) 87.8 H, Lymph % (Auto) 9.6 L, [place] % (Auto) 1.0, Eos % (Auto) 0.2, Baso % (Auto) 0.2, Absolute Neuts (auto) 4.3, Absolute Lymphs (auto) 0.47 L, Nucleated RBC % 0, Sodium 136, Potassium 4.0, Chloride Direct 103, Carbon Dioxide 19.0 L, Anion Gap 14, BUN 20 H, Creatinine 1.16, Estim Creat Clear Calc 53.58, Est GFR (MDRD) Non-Af 50 L, BUN/Creatinine Ratio 16.8, Glucose 237 H, Hemoglobin A1c 11.0, Calcium 8.2 05/21/24 08:31: POC Glucose 252 H 05/21/24 11:37: POC Glucose 267 H Micro: Microbiology 05/20/24 12:00 Mucosa - Nose SARS-CoV-2, Influenza & RSV (PCR) - Final Radiography Diagnostic Testing: Radiology Impression Chest X-Ray 05/20/24 12:20 IMPRESSION: No acute abnormality is seen. Reading Location: [facility] Rhythm Strip Rhythm Strip: Sinus Rhythm Rate: 80 Physical Exam Narrative General: Alert, Oriented x3, Cooperative, No apparent distress HEENT: Atraumatic, PERRLA, EOMI, Normocephalic Oral: Moist Mucosa Neck: Supple Lungs: Diminished, Normal air movement, No rhonchi, No wheeze, No rales Cardiovascular: Regular rate, Regular Rhythm, Normal S1, Normal S2, No murmurs Abdomen: Soft, Non Tender, Non-Distended, No Hepato-splenomegaly Extremities: Edema, Capillary Refill Less than 3 Seconds Skin: No rashes, No breakdown Musculoskeletal: No Tenderness to Palpation of Joints or Extremities Neurological: No focal neurological deficits, Motor Exam 5/5 strength throughout, Sensory exam intact to light touch and pain Psych/Mental Status: Flat Assessment & Plan Assessment/Plan (1) CHF exacerbation: QUALIFIERS: Heart failure type: diastolic Qualified Code(s): I50.33 - Acute on chronic diastolic (congestive) heart failure (2) Asthma exacerbation: (3) Urinary tract infection: (4) Elevated troponin: PLAN: Plan 1. Acute on chronic CHF exacerbation unknown type complicated by a COPD/asthma exacerbation/essential HTN/HLD/CAD status post stents ? Appreciate cardiology's assistance ? Troponins are trending downward indicating an unlikely acute coronary issue, proBNP is elevated to 1100 ? Echocardiogram is pending, last echo was in 2022 with normal EF and no diastolic dysfunction ? Continue with inhalers as well as steroids and antibiotics ? Continue with her home blood pressure medications will monitor make adjustments as necessary ? Continue with diuretics 2. DM2 with morbid obesity and neuropathy ? Continue with insulin ? Accu-Cheks ACHS ? Will monitor and make adjustments as necessary ? A1c of 11 ? BMI of 43.1 ? Continue with Lyrica DVT: Lovenox Charges/Coding Visit Charges Inpatient E&M: 86423 Subs Hosp L2
--- NOTE | 2024-05-21 13:30 | CASEMGMT ---
SW checked in with patient and her just arrived. He was going to go home and get patient's glasses then they were going to look at the list. Plan: d/c to SNF pending patient's choices, accepting facility, and pre-cert. Michelle Paez [employer] MA[employer]GER [employer]
[2024-05-21 17:22] LABS: Bedside Glucose 240 mg/dL (74-106)
[2024-05-21 22:43] LABS: Bedside Glucose 305 mg/dL (74-106)
[2024-05-22] VITALS (9 sets, daily range): BP systolic 117–135; BP diastolic 55–68; PULSE 66–91; RESP 16–20; TEMP 36.4–36.8; O2SAT 95–100
[2024-05-22] MEDS: Pramipexole Di-HCl 0.25 MG Tablet 0.75 MG PO ×3 (05:17→22:05)
[2024-05-22 05:34] LABS: Absolute Lymphocyte Count 0.73 X10^3/uL (0.83-4.51); Absolute Neutrophil Count 4.7 X10^3/uL (2.0-7.7); Eosinophil# 0.01 X10^3/uL; Eosinophils% 0.2 % (0-5); Hematocrit 31.9 % (37-47); Hemoglobin 10.6 g/dL (12.0-15.0); Lymphocyte # 0.73 X10^3/ul (0.83-4.51); Lymphocyte % 12.5 % (19-41); Mean Corp Hgb Conc 33.2 g/dL (32-36); Mean Corpuscular Hgb 29.4 pg (27.0-32.0); Mean Corpuscular Volume 88.4 fL (81-99); Mean Platelet Vol. 9.8 fl (6.2-12.0); Monocyte# 0.37 X10^3/uL; Monocyte% 6.3 % (0-10); NRBC Flagged by Analyzer 0 % (0-5); Neutrophil # 4.71 X10^3/uL (2.7-7.7); Neutrophil % 80.3 % (47-70); Platelet Count 240 K/mm3 (150-450); RBC Distribution Width CV 13.2 % (11.6-14.6); RBC Distribution Width SD 42.6 fl (35.1-43.9); Red Blood Count 3.61 M/mm3 (4.2-5.4); White Blood Count 5.9 K/mm3 (4.4-11.0)
[2024-05-22 06:00] LABS: Anion Gap 14 (5-15); BUN 25 mg/dL (4-19); BUN/Creat Ratio 23.2 RATIO (10-20); Calcium 8.5 mg/dL (7.6-11.0); Carbon Dioxide 21.2 mmol/L (22.0-29.0); Chloride 102 mmol/L (96-108); Creatinine, Serum 1.07 mg/dL (0.70-1.20); EST Glomerular Filtration Rate 55 (>60); Estimated Creatinine Clearance 58.09 ml/min; Glucose 336 mg/dL (70-99); Potassium 3.9 mmol/L (3.3-5.1); Sodium Level 137 mmol/L (133-145)
[2024-05-22] MEDS: Ipratropium/Albuterol Sulfate 3 ML AMPUL.NEB INHALATION ×3 (07:44→22:45)
[2024-05-22] MEDS: Insulin Lispro 100 UNIT/ML INSULN.PEN 20 UNIT SC ×3 (09:01→17:44)
[2024-05-22] MEDS: Insulin Lispro 100 UNIT/ML INSULN.PEN SC (09:01)
[2024-05-22] MEDS: Ceftriaxone 1 GM/50 ML BAG IV (09:09)
[2024-05-22] MEDS: Aspirin E.C. 81 MG Tablet PO (09:18)
[2024-05-22] MEDS: cloNIDine HCl 0.1 MG Tablet PO ×2 (09:18→22:05)
[2024-05-22] MEDS: predniSONE 20 MG Tablet 40 MG PO (09:19)
[2024-05-22] MEDS: Pantoprazole Sodium 40 MG Tablet PO (09:19)
[2024-05-22] MEDS: Ezetimibe 10 MG Tablet PO (09:19)
[2024-05-22] MEDS: Vibegron 75 MG TABLET PO (09:20)
[2024-05-22] MEDS: Losartan Potassium 25 MG Tablet PO (09:20)
[2024-05-22] MEDS: Metoprolol(XL)Succ 25 MG Tablet PO (09:20)
[2024-05-22] MEDS: Atorvastatin Calcium 20 MG Tablet PO (09:21)
[2024-05-22] MEDS: DULoxetine Hcl 30 MG Capsule PO (09:21)
[2024-05-22] MEDS: amLODIPine 5 MG Tablet PO (09:21)
[2024-05-22] MEDS: Clopidogrel Bisulfate 75 MG Tablet PO (09:21)
[2024-05-22] MEDS: Insulin Glargine-YFGN 100 UNIT/ML Pen 50 UNIT SC (09:22)
[2024-05-22] MEDS: 0.9% Saline Lock 10 ML Syringe IV ×3 (09:22→17:46)
[2024-05-22] MEDS: Furosemide 40 MG/4 ML Vial IV ×2 (09:22→17:46)
[2024-05-22] MEDS: Enoxaparin 40 MG/0.4 ML Syringe SC ×2 (09:22→22:04)
[2024-05-22] MEDS: Potassium Chloride Oral Tablet 20 MEQ PO (09:24)
[2024-05-22] MEDS: Pregabalin 75 MG Capsule PO ×2 (09:36→22:05)
--- NOTE | 2024-05-22 09:49 | PCM.PN.HOSP ---
Subjective Subjective No new issues overnight, still requiring oxygen Objective Data Objective Data Vital Signs: Vital Signs Temp Pulse Resp BP Pulse Ox O2 Del Method O2 Flow Rate 97.5 F L 70 18 135/68 H 100 Nasal Cannula 3 05/22/24 09:00 05/22/24 09:20 05/22/24 09:00 05/22/24 09:20 05/22/24 09:00 05/22/24 09:00 05/22/24 09:00 Oxygen Flow Rate (L/min) 3 Oxygen Delivery Method Nasal Cannula Weight: 252 lb 3.341 oz Body Mass Index (BMI) 43.0 Intake & Output: Intake and Output for Last 24 Hours 05/21/24 05/22/24 05/23/24 03:59 03:59 03:59 Intake Total 1150 / 1150 1000 / 1000 120 / 120 Output Total 600 / 600 450 / 450 600 / 600 Balance 550 / 550 550 / 550 -480 / -480 Lab / Micro Data 05/22/24 04:48 05/22/24 04:48 Labs: Laboratory Results - last 24 hr 05/21/24 11:37: POC Glucose 267 H 05/21/24 16:44: POC Glucose 240 H 05/21/24 22:11: POC Glucose 305 H 05/22/24 04:48: WBC 5.9, RBC 3.61 L, Hgb 10.6 L, Hct 31.9 L, MCV 88.4, MCH 29.4, MCHC 33.2, RDW Std Deviation 42.6, RDW Coeff of [place] 13.2, Plt Count 240, MPV 9.8, Immature Gran % (Auto) 0.700, Neut % (Auto) 80.3 H, Lymph % (Auto) 12.5 L, [place] % (Auto) 6.3, Eos % (Auto) 0.2, Baso % (Auto) 0.0, Absolute Neuts (auto) 4.7, Absolute Lymphs (auto) 0.73 L, Nucleated RBC % 0, Sodium 137, Potassium 3.9, Chloride Direct 102, Carbon Dioxide 21.2 L, Anion Gap 14, BUN 25 H, Creatinine 1.07, Estim Creat Clear Calc 58.09, Est GFR (MDRD) Non-Af 55 L, BUN/Creatinine Ratio 23.2 H, Glucose 336 H, Calcium 8.5 Micro: Microbiology 05/20/24 12:46 Urine Catheter - Catheter Urine Culture - Preliminary Yeast Like Organism 05/20/24 12:00 Mucosa - Nose SARS-CoV-2, Influenza & RSV (PCR) - Final Radiography Diagnostic Testing: Radiology Impression Echocardiogram 05/20/24 18:30 Interpretation Summary The estimated ejection fraction is 70 %. No evidence for diastolic dysfunction. Ordering Physician: Kali Pineda Referring Physician: Kali Pineda Performed By: David Johnson RCS Rhythm Strip Rhythm Strip: Sinus Rhythm Rate: 80 Physical Exam Narrative General: Alert, Oriented x3, Cooperative, No apparent distress HEENT: Atraumatic, PERRLA, EOMI, Normocephalic Oral: Moist Mucosa Neck: Supple Lungs: Diminished, Normal air movement, No rhonchi, No wheeze, No rales Cardiovascular: Regular rate, Regular Rhythm, Normal S1, Normal S2, No murmurs Abdomen: Soft, Non Tender, Non-Distended, No Hepato-splenomegaly Extremities: Edema, Capillary Refill Less than 3 Seconds Skin: No rashes, No breakdown Musculoskeletal: No Tenderness to Palpation of Joints or Extremities Neurological: No focal neurological deficits, Motor Exam 5/5 strength throughout, Sensory exam intact to light touch and pain Psych/Mental Status: Normal affect, appropriate Assessment & Plan Assessment/Plan (1) CHF exacerbation: QUALIFIERS: Heart failure type: diastolic Qualified Code(s): I50.33 - Acute on chronic diastolic (congestive) heart failure (2) Asthma exacerbation: (3) Urinary tract infection: (4) Elevated troponin: PLAN: Plan 1. Acute on chronic CHF exacerbation unknown type complicated by a COPD/asthma exacerbation/essential HTN/HLD/CAD status post stents ? Appreciate cardiology's assistance ? Troponins are trending downward indicating an unlikely acute coronary issue, proBNP is elevated to 1100 ? Echocardiogram with an EF of 70% and no diastolic dysfunction, will await further cardiology recs though it appears that most of her shortness of breath is related to her COPD/asthma exacerbation ? Continue with inhalers as well as steroids and antibiotics ? Continue with her home blood pressure medications will monitor make adjustments as necessary ? Continue with diuretics 2. DM2 with morbid obesity and neuropathy ? Continue with insulin ? Accu-Cheks ACHS ? Will monitor and make adjustments as necessary ? A1c of 11 ? BMI of 43.1 ? Continue with Lyrica DVT: Lovenox Charges/Coding Visit Charges Inpatient E&M: 74224 Subs Hosp L2
[2024-05-22 09:55] LABS: Bedside Glucose 291 mg/dL (74-106)
--- NOTE | 2024-05-22 10:15 | PCM.PN.CARD ---
Subjective Subjective Patient is resting comfortably in recombination in bed. She is 100% saturated on 3 L nasal cannula. The patient is on nasal cannula oxygen in her home environment. Echocardiogram done yesterday showed an ejection fraction of 70% with normal LV function. The RV was normal both atria were normal in size she does have aortic valve sclerosis with no stenosis and no insufficiency. There is no other significant valvular heart disease. The patient appears much more comfortable and in better spirits than on admission. She has had no recurrence of the pins and needle sensation in her mid retrosternal area that appears to have been her anginal symptom that she had that during stent deployment and she had had it prior to the stenting procedure. She has had none since then. Objective Data Vital Signs: Vital Signs Temp Pulse Resp BP Pulse Ox O2 Del Method O2 Flow Rate 97.5 F L 70 18 135/68 H 100 Nasal Cannula 3 05/22/24 09:00 05/22/24 09:20 05/22/24 09:00 05/22/24 09:20 05/22/24 09:00 05/22/24 09:00 05/22/24 09:00 Oxygen Flow Rate (L/min) 3 Oxygen Delivery Method Nasal Cannula Weight: 252 lb 3.341 oz Body Mass Index (BMI) 43.0 Intake & Output: Intake and Output for Last 24 Hours 05/20/24 05/21/24 05/22/24 23:59 23:59 23:59 Intake Total 1050 / 1150 980 / 1100 240 / 240 Output Total 1050 / 1050 600 / 600 Balance 1050 / 550 -70 / 50 -360 / -360 Lab / Micro Data Attestation: I reviewed the patient's lab results. 05/22/24 04:48 05/22/24 04:48 Labs: Laboratory Results - last 24 hr 05/21/24 11:37: POC Glucose 267 H 05/21/24 16:44: POC Glucose 240 H 05/21/24 22:11: POC Glucose 305 H 05/22/24 04:48: WBC 5.9, RBC 3.61 L, Hgb 10.6 L, Hct 31.9 L, MCV 88.4, MCH 29.4, MCHC 33.2, RDW Std Deviation 42.6, RDW Coeff of Mitzy 13.2, Plt Count 240, MPV 9.8, Immature Gran % (Auto) 0.700, Neut % (Auto) 80.3 H, Lymph % (Auto) 12.5 L, Randall % (Auto) 6.3, Eos % (Auto) 0.2, Baso % (Auto) 0.0, Absolute Neuts (auto) 4.7, Absolute Lymphs (auto) 0.73 L, Nucleated RBC % 0, Sodium 137, Potassium 3.9, Chloride Direct 102, Carbon Dioxide 21.2 L, Anion Gap 14, BUN 25 H, Creatinine 1.07, Estim Creat Clear Calc 58.09, Est GFR (MDRD) Non-Af 55 L, BUN/Creatinine Ratio 23.2 H, Glucose 336 H, Calcium 8.5 05/22/24 08:44: POC Glucose 291 H Micro: Microbiology 05/20/24 12:46 Urine Catheter - Catheter Urine Culture - Preliminary Yeast Like Organism Rhythm Strip Rhythm Strip: Sinus Rhythm Rate: 70 Cardiology Labs/Tests 05/22/24 04:48: WBC 5.9, RBC 3.61 L, Hgb 10.6 L, Hct 31.9 L, MCV 88.4, MCH 29.4, MCHC 33.2, Plt Count 240, MPV 9.8, Immature Gran % (Auto) 0.700, Neut % (Auto) 80.3 H, Lymph % (Auto) 12.5 L, Randall % (Auto) 6.3, Eos % (Auto) 0.2, Baso % (Auto) 0.0, Absolute Neuts (auto) 4.7, Nucleated RBC % 0, Sodium 137, Potassium 3.9, Carbon Dioxide 21.2 L, Anion Gap 14, BUN 25 H, Creatinine 1.07, Est GFR (MDRD) Non-Af 55 L, BUN/Creatinine Ratio 23.2 H, Glucose 336 H, Calcium 8.5 Rhythm: EKG: ECHO: Stress Test: Cardiac Cath: PCI: CT Surgery: Holter monitor: EPS: PPM: CXR: Chest CT Scan: Radiography Diagnostic Testing: Radiology Impression Echocardiogram 05/20/24 18:30 Interpretation Summary The estimated ejection fraction is 70 %. No evidence for diastolic dysfunction. Ordering Physician: Kali Pineda Referring Physician: Kali Pineda Performed By: David Johnson RCS Physical Exam Narrative Obese white female resting comfortably at composition bed on nasal cannula. Const alert and oriented x3 HEENT normocephalic Eyes PERRL Neck Neck Narrative: Thick neck Resp normal respiratory effort Resp Narrative: Lungs sound clear anteriorly and in the lateral aspect she does have some diminished lung sounds in the lower posterior areas. I do not auscultate any definitive rales. Auscultation: diminished lung sounds bilateral lower Cardio Cardio Narrative: Very distant heart tones due to body habitus. Rate: regular rate Rhythm: regular rhythm Heart Sounds: S1 normal and S2 normal; Negative for click, gallop or murmur GI GI Narrative: Morbidly obese Extremity General Extremity: edema bilateral lower extremity Details: mild Skin Skin Narrative: Hyperpigmentation of the lower extremities. Neuro Neuro Narrative: Alert and oriented x 3 Psych mental status grossly normal Assessment & Plan Assessment/Plan (1) LBBB (left bundle branch block): PLAN: Patient has a chronic left bundle branch block that was diagnosed at [facility] to . Her EKG here shows left bundle branch block. (2) Elevated troponin: PLAN: Patient's troponins were minimally elevated and actually trended downward since admission. Echocardiogram shows no segmental wall motion abnormality and normal LV function with a EF of 70%. I do not feel this represents any type of ischemic event but is probably residual troponin leak from when she had her complicated multi stented procedure with Impella support last week at [facility]. No further change in medications are indicated at this time. (3) Dyspnea: QUALIFIERS: Dyspnea type: shortness of breath Qualified Code(s): R06.02 - Shortness of breath PLAN: Patient originally presented with shortness of breath and inability to get around her house. She does appear to be debilitated. She was able to walk with a walker in the room yesterday. Her cardiovascular status does not explain this dyspnea. She does have a history of severe COPD she is on chronic oxygen therapy in her home environment and she has obstructive sleep apnea treated with CPAP. (4) Coronary artery disease: QUALIFIERS: Coronary Disease-Associated Artery/Lesion type: [place] artery [place] vs. transplanted heart: [place] heart Associated angina: unspecified whether angina present Qualified Code(s): I25.10 - Atherosclerotic heart disease of [place] coronary artery without angina pectoris PLAN: Patient is status post stenting of the left main trunk LAD and circumflex with Impella support on 05/14/2024 at [facility]. At this point in time she is asymptomatic from her [id number] type chest sensation which was her anginal equivalent. Her enzymes are trending downward this does not represents an acute cardiac event on this admission. The patient's had an excellent result from her complex revascularization procedure. This took quite some time to develop the appropriate plan given the patient's complex anatomy and her risk of surgical intervention. Patient should continue her dual antiplatelet therapy this should go uninterrupted given her left main trunk stent. (5) On home oxygen therapy: PLAN: Patient should be continued on her home oxygen therapy per direction of the primary service. (6) Essential hypertension: PLAN: Blood pressure is adequate controlled on her current medical therapy. (7) SHANNON (obstructive sleep apnea): PLAN: Patient should continue her treatment in her home environment with her CPAP. PLAN: Plan 1. From a cardiovascular standpoint the patient could be discharged to home. However, evaluation for possible aggressive rehab may be of benefit in this given situation. 2. Further physical therapy for deconditioning would be of benefit. 3. Patient should follow-up in the [facility] within the next month. 4. I will send a copy of this progress note to the [facility] interventional team Dr. Cunningham Charges/Coding Visit Charges Inpatient E&M: 44874 Subs Hosp L3
[2024-05-22] MEDS: Azithromycin 500 MG in 0.9% Normal Saline (250mL Bag) 250 ML 255 MG IV (10:27)
[2024-05-22 12:41] LABS: Bedside Glucose 125 mg/dL (74-106)
[2024-05-22 17:36] LABS: Bedside Glucose 85 mg/dL (74-106)
[2024-05-22 22:44] LABS: Bedside Glucose 79 mg/dL (74-106)
[2024-05-23] VITALS (10 sets, daily range): BP systolic 111–137; BP diastolic 56–71; PULSE 66–89; RESP 16–18; TEMP 36.3–36.8; O2SAT 94–96
[2024-05-23] MEDS: Pramipexole Di-HCl 0.25 MG Tablet 0.75 MG PO ×3 (05:20→21:59)
[2024-05-23 06:22] LABS: Absolute Lymphocyte Count 1.04 X10^3/uL (0.83-4.51); Absolute Neutrophil Count 6.1 X10^3/uL (2.0-7.7); Basophil# 0.02 X10^3/uL; Basophil% 0.3 % (0-1); Hematocrit 35.4 % (37-47); Hemoglobin 11.5 g/dL (12.0-15.0); Lymphocyte # 1.04 X10^3/ul (0.83-4.51); Lymphocyte % 13.8 % (19-41); Mean Corp Hgb Conc 32.5 g/dL (32-36); Mean Corpuscular Hgb 29.1 pg (27.0-32.0); Mean Corpuscular Volume 89.6 fL (81-99); Mean Platelet Vol. 9.7 fl (6.2-12.0); Monocyte# 0.33 X10^3/uL; Monocyte% 4.4 % (0-10); NRBC Flagged by Analyzer 0 % (0-5); Neutrophil # 6.06 X10^3/uL (2.7-7.7); Neutrophil % 80.3 % (47-70); Platelet Count 271 K/mm3 (150-450); RBC Distribution Width CV 13.2 % (11.6-14.6); RBC Distribution Width SD 43.2 fl (35.1-43.9); Red Blood Count 3.95 M/mm3 (4.2-5.4); White Blood Count 7.5 K/mm3 (4.4-11.0)
[2024-05-23 06:58] LABS: Anion Gap 13 (5-15); BUN 28 mg/dL (4-19); BUN/Creat Ratio 26.4 RATIO (10-20); Calcium 8.5 mg/dL (7.6-11.0); Carbon Dioxide 22.9 mmol/L (22.0-29.0); Chloride 105 mmol/L (96-108); Creatinine, Serum 1.07 mg/dL (0.70-1.20); EST Glomerular Filtration Rate 55 (>60); Estimated Creatinine Clearance 58.09 ml/min (50-250); Glucose 99 mg/dL (70-99); Potassium 3.7 mmol/L (3.3-5.1); Sodium Level 141 mmol/L (133-145)
[2024-05-23] MEDS: Ipratropium/Albuterol Sulfate 3 ML AMPUL.NEB INHALATION ×4 (07:26→19:41)
[2024-05-23 07:54] LABS: Bedside Glucose 111 mg/dL (74-106)
--- NOTE | 2024-05-23 09:36 | PCM.PN.HOSP ---
Subjective Subjective Wants to go to a correction. No issues overnight Objective Data Objective Data Vital Signs: Vital Signs Temp Pulse Resp BP Pulse Ox O2 Del Method O2 Flow Rate 97.8 F 67 16 119/71 96 Nasal Cannula 3 05/23/24 03:30 05/23/24 07:27 05/23/24 07:27 05/23/24 03:30 05/23/24 07:27 05/23/24 08:15 05/23/24 08:15 Oxygen Flow Rate (L/min) 3 Oxygen Delivery Method Nasal Cannula Weight: 252 lb 3.341 oz Body Mass Index (BMI) 43.0 Intake & Output: Intake and Output for Last 24 Hours 05/22/24 05/23/24 05/24/24 03:59 03:59 03:59 Intake Total 1000 / 1000 1385 / 1385 Output Total 450 / 450 2350 / 2350 100 / 100 Balance 550 / 550 -965 / -965 -100 / -100 Lab / Micro Data 05/23/24 05:39 05/23/24 05:39 Labs: Laboratory Results - last 24 hr 05/22/24 08:44: POC Glucose 291 H 05/22/24 12:24: POC Glucose 125 H 05/22/24 17:02: POC Glucose 85 05/22/24 22:02: POC Glucose 79 05/23/24 05:39: WBC 7.5, RBC 3.95 L, Hgb 11.5 L, Hct 35.4 L, MCV 89.6, MCH 29.1, MCHC 32.5, RDW Std Deviation 43.2, RDW Coeff of Mitzy 13.2, Plt Count 271, MPV 9.7, Immature Gran % (Auto) 1.200 H, Neut % (Auto) 80.3 H, Lymph % (Auto) 13.8 L, [place] % (Auto) 4.4, Eos % (Auto) 0.0, Baso % (Auto) 0.3, Absolute Neuts (auto) 6.1, Absolute Lymphs (auto) 1.04, Nucleated RBC % 0, Sodium 141, Potassium 3.7, Chloride Direct 105, Carbon Dioxide 22.9, Anion Gap 13, BUN 28 H, Creatinine 1.07, Estim Creat Clear Calc 58.09, Est GFR (MDRD) Non-Af 55 L, BUN/Creatinine Ratio 26.4 H, Glucose 99, Calcium 8.5 05/23/24 07:31: POC Glucose 111 H Micro: Microbiology 05/20/24 12:46 Urine Catheter - Catheter Urine Culture - Final Yeast, not Cely albicans 05/20/24 12:00 Mucosa - Nose SARS-CoV-2, Influenza & RSV (PCR) - Final Rhythm Strip Rhythm Strip: Sinus Rhythm Rate: 70 Physical Exam Narrative General: Alert, Oriented x3, Cooperative, No apparent distress HEENT: Atraumatic, PERRLA, EOMI, Normocephalic Oral: Moist Mucosa Neck: Supple Lungs: Diminished, Normal air movement, No rhonchi, No wheeze, No rales Cardiovascular: Regular rate, Regular Rhythm, Normal S1, Normal S2, No murmurs Abdomen: Soft, Non Tender, Non-Distended, No Hepato-splenomegaly Extremities: Edema, Capillary Refill Less than 3 Seconds Skin: No rashes, No breakdown Musculoskeletal: No Tenderness to Palpation of Joints or Extremities Neurological: No focal neurological deficits, Motor Exam 5/5 strength throughout, Sensory exam intact to light touch and pain Psych/Mental Status: Normal affect, appropriate Assessment & Plan Assessment/Plan (1) CHF exacerbation: QUALIFIERS: Heart failure type: diastolic Qualified Code(s): I50.33 - Acute on chronic diastolic (congestive) heart failure (2) Asthma exacerbation: (3) Urinary tract infection: (4) Elevated troponin: PLAN: Plan 1. Acute on chronic CHF exacerbation unknown type complicated by a COPD/asthma exacerbation/essential HTN/HLD/CAD status post stents ? Appreciate cardiology's assistance ? Troponins are trending downward indicating an unlikely acute coronary issue, proBNP is elevated to 1100 ? Echocardiogram with an EF of 70% and no diastolic dysfunction, will await further cardiology recs though it appears that most of her shortness of breath is related to her COPD/asthma exacerbation ? Continue with inhalers as well as steroids and antibiotics ? Continue with her home blood pressure medications will monitor make adjustments as necessary ? Continue with diuretics ? PT/OT and consult case management for possible placement 2. DM2 with morbid obesity and neuropathy ? Continue with insulin ? Accu-Cheks ACHS ? Will monitor and make adjustments as necessary ? A1c of 11 ? BMI of 43.1 ? Continue with Lyrica DVT: Lovenox Charges/Coding Visit Charges Inpatient E&M: 48880 Subs Hosp L2
[2024-05-23] MEDS: predniSONE 20 MG Tablet 40 MG PO (10:22)
[2024-05-23] MEDS: Atorvastatin Calcium 20 MG Tablet PO (10:22)
[2024-05-23] MEDS: Losartan Potassium 25 MG Tablet PO (10:23)
[2024-05-23] MEDS: Clopidogrel Bisulfate 75 MG Tablet PO (10:23)
[2024-05-23] MEDS: cloNIDine HCl 0.1 MG Tablet PO ×2 (10:23→21:59)
[2024-05-23] MEDS: Metoprolol(XL)Succ 25 MG Tablet PO (10:23)
[2024-05-23] MEDS: Pantoprazole Sodium 40 MG Tablet PO (10:23)
[2024-05-23] MEDS: DULoxetine Hcl 30 MG Capsule PO (10:24)
[2024-05-23] MEDS: Vibegron 75 MG TABLET PO (10:24)
[2024-05-23] MEDS: amLODIPine 5 MG Tablet PO (10:24)
[2024-05-23] MEDS: Aspirin E.C. 81 MG Tablet PO (10:24)
[2024-05-23] MEDS: Furosemide 40 MG/4 ML Vial IV ×2 (10:25→17:26)
[2024-05-23] MEDS: Potassium Chloride Oral Tablet 20 MEQ PO (10:25)
[2024-05-23] MEDS: Ezetimibe 10 MG Tablet PO (10:25)
[2024-05-23] MEDS: Enoxaparin 40 MG/0.4 ML Syringe SC ×2 (10:25→21:59)
[2024-05-23] MEDS: Insulin Lispro 100 UNIT/ML INSULN.PEN 20 UNIT SC ×2 (10:28→13:25)
[2024-05-23] MEDS: 0.9% Saline Lock 10 ML Syringe IV ×2 (10:31→17:26)
[2024-05-23] MEDS: Pregabalin 75 MG Capsule PO ×2 (10:36→21:59)
[2024-05-23] MEDS: Ceftriaxone 1 GM/50 ML BAG IV (10:37)
[2024-05-23] MEDS: Insulin Glargine-YFGN 100 UNIT/ML Pen 60 UNIT SC (10:40)
[2024-05-23] MEDS: Azithromycin 500 MG in 0.9% Normal Saline (250mL Bag) 250 ML 255 MG IV (11:43)
[2024-05-23 12:35] LABS: Bedside Glucose 152 mg/dL (74-106)
[2024-05-23] MEDS: Insulin Lispro 100 UNIT/ML INSULN.PEN SC (13:25)
[2024-05-23 17:26] LABS: Bedside Glucose 74 mg/dL (74-106)
[2024-05-23 21:36] LABS: Bedside Glucose 148 mg/dL (74-106)
[2024-05-23] MEDS: Insulin Glargine-YFGN 100 UNIT/ML Pen 50 UNIT SC (22:00)
[2024-05-24] VITALS (7 sets, daily range): BP systolic 108–130; BP diastolic 67–71; PULSE 66–77; RESP 16–22; TEMP 36.2–37.3; O2SAT 92–99
[2024-05-24] MEDS: Pramipexole Di-HCl 0.25 MG Tablet 0.75 MG PO ×2 (05:15→14:10)
[2024-05-24] MEDS: Ipratropium/Albuterol Sulfate 3 ML AMPUL.NEB INHALATION ×2 (07:18→11:17)
[2024-05-24] MEDS: Insulin Lispro 100 UNIT/ML INSULN.PEN 20 UNIT SC (07:43)
[2024-05-24] MEDS: Pregabalin 75 MG Capsule PO (09:22)
[2024-05-24] MEDS: Atorvastatin Calcium 20 MG Tablet PO (09:25)
[2024-05-24] MEDS: cloNIDine HCl 0.1 MG Tablet PO (09:25)
[2024-05-24] MEDS: Vibegron 75 MG TABLET PO (09:25)
[2024-05-24] MEDS: Pantoprazole Sodium 40 MG Tablet PO (09:26)
[2024-05-24] MEDS: Losartan Potassium 25 MG Tablet PO (09:26)
[2024-05-24] MEDS: Aspirin E.C. 81 MG Tablet PO (09:26)
[2024-05-24] MEDS: Ezetimibe 10 MG Tablet PO (09:26)
[2024-05-24] MEDS: amLODIPine 5 MG Tablet PO (09:26)
[2024-05-24] MEDS: Metoprolol(XL)Succ 25 MG Tablet PO (09:26)
[2024-05-24] MEDS: Furosemide 40 MG/4 ML Vial IV (09:27)
[2024-05-24] MEDS: DULoxetine Hcl 30 MG Capsule PO (09:27)
[2024-05-24] MEDS: Enoxaparin 40 MG/0.4 ML Syringe SC (09:27)
[2024-05-24] MEDS: Ceftriaxone 1 GM/50 ML BAG IV (09:28)
[2024-05-24] MEDS: Clopidogrel Bisulfate 75 MG Tablet PO (09:28)
[2024-05-24] MEDS: Insulin Glargine-YFGN 100 UNIT/ML Pen 50 UNIT SC (09:29)
[2024-05-24] MEDS: Potassium Chloride Oral Tablet 20 MEQ PO (09:29)
--- NOTE | 2024-05-24 09:30 | CASEMGMT ---
Discharge Planning Referral sent to [facility]. Caitlyn Rain DC Planning Asst.
[2024-05-24] MEDS: Acetaminophen 325 MG Tablet 650 MG PO (09:37)
[2024-05-24] MEDS: oxyCODONE 5 MG Tablet PO (09:37)
[2024-05-24] MEDS: Azithromycin 500 MG in 0.9% Normal Saline (250mL Bag) 250 ML 225 MG IV (09:37)
[2024-05-24] MEDS: predniSONE 20 MG Tablet 40 MG PO (09:38)
--- NOTE | 2024-05-24 10:18 | PN.HOSP_ITS ---
Subjective Subjective Doing well, currently off of oxygen Objective Data Objective Data Vital Signs: Vital Signs Temp Pulse Resp BP Pulse Ox O2 Del Method O2 Flow Rate 97.8 F 70 18 111/67 92 Room Air 2 05/24/24 09:30 05/24/24 09:30 05/24/24 09:30 05/24/24 09:30 05/24/24 09:30 05/24/24 09:30 05/24/24 07:51 Oxygen Flow Rate (L/min) 2 Oxygen Delivery Method Room Air Weight: 252 lb 3.341 oz Body Mass Index (BMI) 43.0 Intake & Output: Intake and Output for Last 24 Hours 05/23/24 05/24/24 05/25/24 03:59 03:59 03:59 Intake Total 1385 / 1385 905 / 905 Output Total 2350 / 2350 2200 / 2200 250 / 250 Balance -965 / -965 -1295 / -1295 -250 / -250 Lab / Micro Data 05/23/24 05:39 05/23/24 05:39 Labs: Laboratory Results - last 24 hr 05/23/24 11:46: POC Glucose 152 H 05/23/24 16:23: POC Glucose 74 05/23/24 21:00: POC Glucose 148 H Micro: Microbiology 05/20/24 15:50 Blood Culture (Wb) - Anticubital Right Blood Culture - Preliminary No growth in 48 hours. 05/20/24 15:50 Blood Culture (Wb) - Anticubital Left Blood Culture - Preliminary No growth in 48 hours. 05/20/24 12:46 Urine Catheter - Catheter Urine Culture - Final Yeast, not Cely albicans 05/20/24 12:00 Mucosa - Nose SARS-CoV-2, Influenza & RSV (PCR) - Final Rhythm Strip Rhythm Strip: Sinus Rhythm Rate: 70 Physical Exam Narrative General: Alert, Oriented x3, Cooperative, No apparent distress HEENT: Atraumatic, PERRLA, EOMI, Normocephalic Oral: Moist Mucosa Neck: Supple Lungs: Diminished, Normal air movement, No rhonchi, No wheeze, No rales Cardiovascular: Regular rate, Regular Rhythm, Normal S1, Normal S2, No murmurs Abdomen: Soft, Non Tender, Non-Distended, No Hepato-splenomegaly Extremities: Edema, Capillary Refill Less than 3 Seconds Skin: No rashes, No breakdown Musculoskeletal: No Tenderness to Palpation of Joints or Extremities Neurological: No focal neurological deficits, Motor Exam 5/5 strength throughout, Sensory exam intact to light touch and pain Psych/Mental Status: Normal affect, appropriate Assessment & Plan Assessment/Plan (1) CHF exacerbation: QUALIFIERS: Heart failure type: diastolic Qualified Code(s): I 50.33 - Acute on chronic diastolic (congestive) heart failure (2) Asthma exacerbation: (3) Elevated troponin: PLAN: Plan 1. Acute on chronic CHF exacerbation unknown type complicated by a COPD/asthma exacerbation/essential HTN/HLD/CAD status post stents ? Appreciate cardiology's assistance ? Troponins are trending downward indicating an unlikely acute coronary issue, proBNP is elevated to 1100 ? Echocardiogram with an EF of 70% and no diastolic dysfunction, will await further cardiology recs though it appears that most of her shortness of breath is related to her COPD/asthma exacerbation ? Continue with inhalers as well as steroids and antibiotics ? Continue with her home blood pressure medications will monitor make adjustments as necessary ? Continue with diuretics ? PT/OT and consult case management for possible placement 2. DM2 with morbid obesity and neuropathy ? Continue with insulin ? Accu-Cheks ACHS ? Will monitor and make adjustments as necessary ? A1c of 11 ? BMI of 43.1 ? Continue with Lyrica DVT: Lovenox Charges/Coding Visit Charges Inpatient E&M: 04265 Subs Hosp L2
--- NOTE | 2024-05-24 10:26 | CASEMGMT ---
SW met with patient letting her know that TCU is full, but a referral has been sent to [facility]. SW will let her know when SW hears back from [facility]. Plan: D/c to SNF pending accepting facility and pre-cert. Michelle Paez BOBBIN DUMPER CHANDAN
--- NOTE | 2024-05-24 11:13 | CASEMGMT ---
[facility] has accepted and will submit for precert. Caitlyn Rain DC Planning Asst.
[2024-05-24 11:18] LABS: Bedside Glucose 134 mg/dL (74-106)
--- NOTE | 2024-05-24 11:42 | CASEMGMT ---
HARLEY met with patient and let her know [facility] is able to take her. HARLEY explained once her insurance approves she will go to [facility]. HARLEY explained this could be today or tomorrow. Plan: [facility] pending insurance approval. Michelle HAWLEY
[2024-05-24 12:13] LABS: Bedside Glucose 56 mg/dL (74-106)
[2024-05-24 12:33] LABS: Bedside Glucose 79 mg/dL (74-106)
--- NOTE | 2024-05-24 13:02 | TREXTCAR_ITS ---
Diet Diet Order/Speech Therapy: 05/20/24 18:30 Diet: Cardiac: Calorie-Controlled Food consistency:: Easy to Chew Liquid Consistency:: Regular/Thin How many daily calories?: 1999 calorie Routine Orders/Code Status Routine Lab Work: CBC and BMP Code Status: Full Code DC O2, CPAP, BIPAP needs Home O2 Discharge instructions: No Therapies Physical Therapy: Eval and Treat Occupational Therapy: Eval and Treat Problem/Diagnosis (1) CHF exacerbation: Status: Chronic Code(s): I50.9 - Heart failure, unspecified (2) Asthma exacerbation: Status: Acute Code(s): J45.901 - Unspecified asthma with (acute) exacerbation (3) Elevated troponin: Status: Acute Code(s): R79.89 - Other specified abnormal findings of blood chemistry Plan 1. Acute on chronic CHF exacerbation unknown type complicated by a COPD/asthma exacerbation/essential HTN/HLD/CAD status post stents ? Appreciate cardiology's assistance ? Troponins are trending downward indicating an unlikely acute coronary issue, proBNP is elevated to 1100 ? Echocardiogram with an EF of 70% and no diastolic dysfunction, will await further cardiology recs though it appears that most of her shortness of breath is related to her COPD/asthma exacerbation ? Continue with inhalers as well as steroids and antibiotics ? Continue with her home blood pressure medications will monitor make adjustments as necessary ? Continue with diuretics ? PT/OT and consult case management for possible placement 2. DM2 with morbid obesity and neuropathy ? Continue with insulin ? Accu-Cheks ACHS ? Will monitor and make adjustments as necessary ? A1c of 11 ? BMI of 43.1 ? Continue with Lyrica DVT: Lovenox Allergies/Procedures Done in Hospital Allergies rivaroxaban (From Xarelto) Allergy (Intermediate, Verified 05/20/24 11:22) Itching Environmental Allergies: Uncoded Allergy (Verified 05/20/24 11:22) PT UNABLE TO RESPOND-NEEDS F/U latex Allergy (Verified 02/09/24 08:21) Itching pravastatin Allergy (Verified 05/20/24 11:22) Unknown codeine Adverse Reaction (Severe, Verified 05/20/24 11:22) Itching zolpidem (From Ambien) Adverse Reaction (Severe, Verified 05/20/24 11:22) Sleep walking/talking Procedures: 2-D Echocardiogram Type of Care/Length of Stay Estimated LOS: Convalescent Care Less Than 30 days Type of Care Needed: Skilled Rehab Potential: Good Prognosis: Good Additional Orders/Day of Discharge Day of Discharge: 05/24/24 Dietary and Speech Recommendations Dietitian Recommendations/Changes: Adjust to cardiac; 2000 calorie co ntrolled/consistent carbohydrate - easy to chew consistency per pt request. Will monitor weight trends. Discharge Plan Admission Admit Date/Time: 05/20/24 15:50 Attending Provider: Black Dumas Primary Care Provider: Kaz Cervantes Consulting Providers: Mele Gilbert; Kali Pineda Discharge Orders/Prescriptions Prescriptions: New prednisone 20 mg Tablet 40 mg PO BREAKFAST 3 Days Qty: 0 0RF cefdinir 300 mg capsule 300 mg PO BID Qty: 4 0RF furosemide [Lasix] 40 mg tablet 40 mg PO DAILY Qty: 30 0RF Continued omeprazole 40 mg capsule,delayed release(DR/EC) 40 mg PO DAILY aspirin [Adult Low Dose Aspirin] 81 mg tablet,delayed release (DR/EC) 81 mg PO DAILY clonidine HCl 0.1 mg tablet 0.1 mg PO BID amlodipine 5 mg tablet 5 mg PO DAILY Qty: 30 11RF albuterol sulfate 90 mcg/actuation HFA aerosol inhaler 2 puff inhalation Q4H PRN (Reason: shortness of breath or wheezing) Qty: 8.5 11RF insulin glargine [Lantus Solostar U-100 Insulin] 100 unit/mL (3 mL) insulin pen 50 unit subcut BID insulin lispro [Humalog KwikPen Insulin] 100 unit/mL insulin pen 20 unit subcut BID ropinirole 4 MG tablet 4 mg PO BID Patient Comments: restless legs potassium chloride 20 mEq Tablet Extended Release 20 meq PO DAILY albuterol sulfate 2.5 mg /3 mL (0.083 %) solution for nebulization 2.5 mg inhalation PRN PRN (Reason: shortness of breath or wheezing) Gemtesa 75 mg tablet 75 mg PO DAILY clopidogrel 75 mg tablet 75 mg PO DAILY pantoprazole 40 mg tablet,delayed release (DR/EC) 40 mg PO DAILY losartan 25 mg tablet 25 mg PO DAILY metoprolol succinate 25 mg tablet extended release 24 hr 25 mg PO DAILY rosuvastatin 20 mg tablet 10 mg PO DAILY duloxetine 30 mg capsule,delayed release(DR/EC) 30 mg PO DAILY pregabalin 75 mg capsule 75 mg PO BID Patient Comments: PT UNSURE OF DOSE SHE IS TAKING OF THIS acetaminophen 500 mg tablet 650 mg PO Q6H PRN (Reason: Pain Score 1-5/10) Qty: 0 0RF ezetimibe 10 mg tablet 10 mg PO DAILY Qty: 90 3RF Discontinued oxycodone-acetaminophen 5-325 mg tablet Referrals / Follow Up: Kaz Cervantes DO [Primary Care Provider] - Disposition Disposition (needs filled in before D/C Order can be placed): Long-Term Facility (1) CHF exacerbation Qualifiers: Heart failure type: diastolic Qualified Code(s): I50.33 - Acute on chronic diastolic (congestive) heart failure
--- NOTE | 2024-05-24 13:09 | CASEMGMT ---
CANDACE CANADA in to complete IMM with patient. CANDACE CANADA explained IMM to patient, patient voiced understanding. Patient signed IMM and filed in chart. Patietn provided with copy of signed IMM. Patient had no further questions or concerns.
--- NOTE | 2024-05-24 13:32 | CASEMGMT ---
[facility] has obtained auth to admit. SW updated. Caitlyn Rain DC Planning Asst.
--- NOTE | 2024-05-24 14:06 | CASEMGMT ---
Discharge Planning Discharge orders, signed med list, and transport time sent to [facility]. Physicians will transport pt by wheelchair at 5p. Nursing and SW updated. Unable to get call to to go through. SW to update pt. Caitlyn Rain DC Planning Asst.
--- NOTE | 2024-05-24 14:37 | CASEMGMT ---
HARLEY completed a [address] system. HARLEY notified patient that her insurance approved her and she will be discharged to [facility] today. HARLEY told patient transport will be at [facility] at 5p to pick her up. HARLEY also informed patient that insurance will not pay for the transport to [facility] and she will get a bill. Patient verbalized understanding. Plan: d/c to [facility] under skilled level of care on a convalescent stay. Physicians will transport via wheelchair van. Michelle HAWLEY
--- NOTE | 2024-05-24 15:05 | NURSING ---
This RN called [facility] to give patient report. Left name and callback number on voicemail.
--- NOTE | 2024-05-24 15:29 | DS.PCM_ITS ---
Providers Date of Admission: 05/20/24 Primary Care Physician: Dr. Kaz Cervantes DO Consultations 05/20/24 18:30 Consult: Cardiology Routine Consulting Provider: Mele Gilbert Reason for Consult: CHF EMERGENT Consult: No MD Notified: Yes Date Notified: 05/20/24 Time Notified: 15:55 Method of Notification: Verbal Reason For Visit: CHF, ASTHMA EXACERBATION Diagnosis Discharge Diagnosis (1) CHF exacerbation: Status: Chronic Code(s): I50.9 - Heart failure, unspecified Qualifiers: Heart failure type: diastolic Qualified Code(s): I50.33 - Acute on chronic diastolic (congestive) heart failure (2) Asthma exacerbation: Status: Acute Code(s): J45.901 - Unspecified asthma with (acute) exacerbation (3) Elevated troponin: Status: Acute Code(s): R79.89 - Other specified abnormal findings of blood chemistry Medications at Discharge Home Medications ropinirole 4 mg tablet 4 mg PO BID RLS 02/23/13 aspirin 81 mg tablet,delayed release (Adult Low Dose Aspirin) 81 mg PO DAILY [facility] 07/06/20 omeprazole 40 mg capsule,delayed release 40 mg PO DAILY 07/06/20 potassium chloride 20 mEq tablet,extended release 20 meq PO DAILY 11/09/21 amlodipine 5 mg tablet 5 mg PO DAILY #30 tabs 07/29/22 clonidine HCl 0.1 mg tablet 0.1 mg PO BID 07/29/22 ezetimibe 10 mg tablet 10 mg PO DAILY #90 TABLETS 09/01/23 duloxetine 30 mg capsule,delayed release 30 mg PO DAILY 10/01/23 pregabalin 75 mg capsule 75 mg PO BID 10/01/23 acetaminophen 500 mg tablet 650 mg (1.3 x 500 mg) PO Q6H PRN Pain Score 1-5/10 #0 tabs 10/03/23 albuterol sulfate 90 mcg/actuation aerosol inhaler 2 puff inhalation Q4H PRN shortness of breath or wheezing #8.5 grams 01/01/24 insulin glargine 100 unit/mL (3 mL) subcutaneous pen (Lantus Solostar U-100 Insulin) 50 unit subcut BID 01/12/24 insulin lispro 100 unit/mL subcutaneous pen (Humalog KwikPen (U-100) Insulin) 20 unit subcut BID 01/12/24 albuterol sulfate 2.5 mg/3 mL (0.083 %) solution for nebulization 2.5 mg inhalation PRN PRN shortness of breath or wheezing 01/20/24 vibegron 75 mg tablet (Gemtesa) 75 mg PO DAILY 02/04/24 clopidogrel 75 mg tablet 75 mg PO DAILY 05/20/24 losartan 25 mg tablet 25 mg PO DAILY 05/20/24 metoprolol succinate 25 mg tablet,extended release 24 hr 25 mg PO DAILY 05/20/24 pantoprazole 40 mg tablet,delayed release 40 mg PO DAILY 05/20/24 rosuvastatin 20 mg tablet 10 mg PO DAILY 05/20/24 cefdinir 300 mg capsule 300 mg PO BID #4 caps 05/24/24 furosemide 40 mg tablet (Lasix) 40 mg PO DAILY #30 tabs 05/24/24 prednisone 20 mg tablet 40 mg (2 x 20 mg) PO BREAKFAST 3 days #0 tabs 05/24/24 Hospital Course Operations None Procedures 2-D Echocardiogram Summary of Care Provided Minutes Spent on Discharge: 33 Hospital Course: Per HPI: ANN PEARCE, is a 74 F who presents with complaints of shortness of breath, malaise and just feeling unwell overall. Symptoms again yesterday. Patient complains of chills as well sore throat which, shortness of breath. Also complaining of right-sided jaw pain. Patient this past Friday underwent 4 stents over at [facility]. Was discharged home and had been doing well up until recently. She does have chronic lower extremity edema which no change at this time for her description. Patient presented to the emergency room where it was concerning that she may have CHF given elevated BNP. She was found have urinary tract infection. Patient was started on Nitropaste, received ceftriaxone for the urinary tract infection. Additionally she had troponins that went from 92- 83. Dr. Gilbert was contacted from the emergency room and he saw the patient along with me in the emergency room. Hospital Course: 1. Acute on chronic CHF exacerbation unknown type complicated by a COPD/asthma exacerbation/essential HTN/HLD/CAD status post stents ? Appreciate cardiology's assistance ? Troponins are trending downward indicating an unlikely acute coronary issue, proBNP is elevated to 1100 ? Echocardiogram with an EF of 70% and no diastolic dysfunction, it appears that most of her shortness of breath is related to her COPD/asthma exacerbation ? Continue with inhalers as well as steroids and antibiotics ? Continue with her home blood pressure medications will monitor make adjustments as necessary ? Continue with diuretics ? PT/OT and consult case management for possible placement 05/24/2024: She was accepted to SNF today for rehab. I discussed with her the plan for discharge and she expressed understanding of the risks and benefits of going to the long term and would like to go today. Will plan for 3 more days of prednisone as well as 2 more days of cefdinir to complete treatment. Will recommend continued use of her inhalers. No changes were made to her current blood pressure medications however she was started on Lasix which she can continue with long term with adjustment as indicated by her PCP. 2. DM2 with morbid obesity and neuropathy ? Continue with insulin ? Accu-Cheks ACHS ? Will monitor and make adjustments as necessary ? A1c of 11 ? BMI of 43.1 ? Continue with Lyrica 05/24/2024: Her home insulin regimen is Lantus 50 units twice daily with 20 units of insulin lispro twice daily however while she is on appropriate diet this is causing her to be hypoglycemic so she is currently on 30 units of Lantus twice daily and 10 units of insulin lispro twice daily she will likely require even less once her steroids are completed at SNF. Physical Exam Narrative General: Alert, Oriented x3, Cooperative, No apparent distress HEENT: Atraumatic, PERRLA, EOMI, Normocephalic Oral: Moist Mucosa Neck: Supple Lungs: Diminished, Normal air movement, No rhonchi, No wheeze, No rales Cardiovascular: Regular rate, Regular Rhythm, Normal S1, Normal S2, No murmurs Abdomen: Soft, Non Tender, Non-Distended, No Hepato-splenomegaly Extremities: Edema, Capillary Refill Less than 3 Seconds Skin: No rashes, No breakdown Musculoskeletal: No Tenderness to Palpation of Joints or Extremities Neurological: No focal neurological deficits, Motor Exam 5/5 strength throughout, Sensory exam intact to light touch and pain Psych/Mental Status: Normal affect, appropriate Weight / BMI Weight Weight: 252 lb 3.341 oz Body Mass Index (BMI) 43.0 ABG / Lab / Microbiology Data 05/23/24 05:39 05/23/24 05:39 Laboratory: Laboratory Results - last 24 hr 05/23/24 16:23: POC Glucose 74 05/23/24 21:00: POC Glucose 148 H 05/24/24 07:40: POC Glucose 134 H 05/24/24 11:36: POC Glucose 56 L 05/24/24 12:15: POC Glucose 79 Microbiology: Microbiology 05/20/24 15:50 Blood Culture (Wb) - Anticubital Right Blood Culture - Preliminary No growth in 48 hours. 05/20/24 15:50 Blood Culture (Wb) - Anticubital Left Blood Culture - Preliminary No growth in 48 hours. 05/20/24 12:46 Urine Catheter - Catheter Urine Culture - Final Yeast, not Cely albicans 05/20/24 12:00 Mucosa - Nose SARS-CoV-2, Influenza & RSV (PCR) - Final D/C Instructions DC O2, CPAP, BIPAP Needs Home O2 Discharge instructions: No Meaningful Use Info Meaningful Use Meaningful Use Diagnoses (Choose all that apply): None applicable Ischemic Stroke Statin Dosing Therapy Reference: STATIN DOSE THERAPY REFERENCE: * Patients > 75 years receive moderate or high dose statin therapy. * Patients 75 years or YOUNGER should receive HIGH intensity statin dose unless contraindicated. You will be required to document reason for non-treatment if statin daily dose does not meet guidelines. HIGH DOSE STATIN THERAPY DAILY Atorvastatin > than or = to 40 mg Rosuvastatin > than or = to 20 mg Amlodipine + Atorvastatin > than or = to 2.5/40 mg Ezetimibe + Simvastatin 10/80 mg Simvastatin 80mg Discharge Plan Admission Admit Date/Time: 05/20/24 15:50 Attending Provider: Black Dumas Primary Care Provider: Kaz Cervantes Consulting Providers: Mele Gilbert; Kali Pineda Discharge Orders/Prescriptions Prescriptions: New prednisone 20 mg Tablet 40 mg PO BREAKFAST 3 Days Qty: 0 0RF cefdinir 300 mg capsule 300 mg PO BID Qty: 4 0RF furosemide [Lasix] 40 mg tablet 40 mg PO DAILY Qty: 30 0RF Continued omeprazole 40 mg capsule,delayed release(DR/EC) 40 mg PO DAILY aspirin [Adult Low Dose Aspirin] 81 mg tablet,delayed release (DR/EC) 81 mg PO DAILY clonidine HCl 0.1 mg tablet 0.1 mg PO BID amlodipine 5 mg tablet 5 mg PO DAILY Qty: 30 11RF albuterol sulfate 90 mcg/actuation HFA aerosol inhaler 2 puff inhalation Q4H PRN (Reason: shortness of breath or wheezing) Qty: 8.5 11RF insulin glargine [Lantus Solostar U-100 Insulin] 100 unit/mL (3 mL) insulin pen 50 unit subcut BID insulin lispro [Humalog KwikPen Insulin] 100 unit/mL insulin pen 20 unit subcut BID ropinirole 4 MG tablet 4 mg PO BID Patient Comments: restless legs potassium chloride 20 mEq Tablet Extended Release 20 meq PO DAILY albuterol sulfate 2.5 mg /3 mL (0.083 %) solution for nebulization 2.5 mg inhalation PRN PRN (Reason: shortness of breath or wheezing) Gemtesa 75 mg tablet 75 mg PO DAILY clopidogrel 75 mg tablet 75 mg PO DAILY pantoprazole 40 mg tablet,delayed release (DR/EC) 40 mg PO DAILY losartan 25 mg tablet 25 mg PO DAILY metoprolol succinate 25 mg tablet extended release 24 hr 25 mg PO DAILY rosuvastatin 20 mg tablet 10 mg PO DAILY duloxetine 30 mg capsule,delayed release(DR/EC) 30 mg PO DAILY pregabalin 75 mg capsule 75 mg PO BID Patient Comments: PT UNSURE OF DOSE SHE IS TAKING OF THIS acetaminophen 500 mg tablet 650 mg PO Q6H PRN (Reason: Pain Score 1-5/10) Qty: 0 0RF ezetimibe 10 mg tablet 10 mg PO DAILY Qty: 90 3RF Discontinued oxycodone-acetaminophen 5-325 mg tablet Referrals / Follow Up: Kaz Cervantes DO [Primary Care Provider] - Disposition Disposition (needs filled in before D/C Order can be placed): Alf Facility Charges/Coding Visit Charges Inpatient E&M: 79090 Disch Hosp >30min
[2024-05-24 17:08] LABS: Bedside Glucose 198 mg/dL (74-106)
== END 2024-05-24 17:23 | disposition skilled nursing facility (03) | DRG 291 ==
LOC: ED 16:03 → PCU 17:48
PROVIDERS: Emergency Provider Emergency Medicine; PCP Family Medicine; Visit Provider Family Medicine
DX: I11.0 Hypertensive heart disease with heart failure (principal); I50.33 Acute on chronic diastolic (congestive) heart failure; I24.89 Other forms of acute ischemic heart disease; J44.1 Chronic obstructive pulmonary disease with (acute) exacerbation; Z68.41 Body mass index [BMI] 40.0-44.9, adult; J45.901 Unspecified asthma with (acute) exacerbation; N39.0 Urinary tract infection, site not specified; E11.42 Type 2 diabetes mellitus with diabetic polyneuropathy; N18.31 Chronic kidney disease, stage 3a; I35.8 Other nonrheumatic aortic valve disorders; I25.10 Atherosclerotic heart disease of native coronary artery without angina pectoris; Z79.4 Long term (current) use of insulin; E78.5 Hyperlipidemia, unspecified; E11.22 Type 2 diabetes mellitus with diabetic chronic kidney disease; E66.01 Morbid (severe) obesity due to excess calories; G47.33 Obstructive sleep apnea (adult) (pediatric); I25.2 Old myocardial infarction; Z99.81 Dependence on supplemental oxygen; Z11.52 Encounter for screening for COVID-19; Z79.82 Long term (current) use of aspirin; Z79.02 Long term (current) use of antithrombotics/antiplatelets; Z95.5 Presence of coronary angioplasty implant and graft
CPT/HCPCS: 36415; 71046; 80048; 81001; 82962; 83036; 83605; 83880; 84484; 85025; 85610; 85730; 87040; 87086; 87088; 87631; 93005; 93306; 94640; 97116; 97162; 97166; 97530; 99252; 99285; Q9957; A4216; C8929; G0463; J1940; J2405

== ENCOUNTER 2024-06-25 18:16 | Emergency (ER) | payer MEDICARE, SELFPAY ==
[2024-06-25] VITALS (13 sets, daily range): BP systolic 50–164; BP diastolic 14–102; PULSE 44–122; RESP 12–40; TEMP 39.7–41.4; O2SAT 37–98; BMI 48.9
--- NOTE | 2024-06-25 18:20 | EKG12_ITS ---
Test Reason : CP Blood Pressure : */* mmHG Vent. Rate : 65 BPM Atrial Rate : 94 BPM P-R Int : * ms QRS Dur : 88 ms QT Int : 388 ms P-R-T Axes : 105 81 1 degrees QTcB Int : 403 ms Critical Test Result: AV Block , Sinus rhythm with complete heart block and Junctional rhythm Low voltage QRS Cannot rule out Anterior infarct , age undetermined Lateral injury pattern Abnormal ECG Confirmed by PEPE MALIK, MARIEL ([id number]), editor in chief JAM RILEY ([id number]) on 06/28/2024 5:55:24 AM Referred By: PRABHU Confirmed By: MARIEL CANTU MD
[2024-06-25 18:28] LABS: Allen Test Positive; Base Excess -13 mmol/L (-2 to +2); Bicarbonate 14.5 mmol/L (22-26); Blood Gas Specimen Type ART; Mode Not entered; O2 Delivery Device NRB; PO2 103 mmHG (75-100); SITE R Brach; SO2 97 % (95-99); Total Carbon Dioxide 16 mmol/L; pCO2 35.9 mmHg (35-45); pH 7.21 (7.35-7.45)
[2024-06-25] MEDS: Ipratropium/Albuterol Sulfate 3 ML AMPUL.NEB INHALATION (18:34)
[2024-06-25] MEDS: 0.9% Normal Saline (1000mL) 1,000 ML 999 ML IV ×4 (18:34→20:35)
[2024-06-25 18:35] LABS: Mucous, Urine 0 SEEN /hpf (<or=2+)
[2024-06-25 18:38] LABS: Glucose, Dipstick 100 mg/dl (Normal); Ketone-Dipstick Negative (Negative); Leukocyte Esterase-Dipstick 500 /ul (Negative); Nitrite-Dipstick Positive (Negative); Occult Blood-Urine 50 /ul (Negative); Protein-Dipstick 100 mg/dl (Negative); Urine Clarity Turbid (Clear); Urine Urobilinogen 8 mg/dl (Normal)
[2024-06-25 18:39] LABS: Color, Urine AMBER (Yellow); Urine Bilirubin Dipstick 6 mg/dL (Negative)
--- NOTE | 2024-06-25 18:50 | RAD_ITS ---
PROCEDURE: CHEST 1 VIEW (PORTABLE) 06/25/2024 REASON FOR EXAM: SOB TECHNIQUE: Frontal view of the chest. COMPARISON: 05/20/2024 FINDINGS: The lungs appear clear. Pulmonary vascularity appears within limits. The cardiac and mediastinal contours appear within limits. Thoracic spinal stimulator again noted. RAD/Chest 1 View (Portable) IMPRESSION: No evidence of acute disease. Reading Location: [id number]
[2024-06-25 18:53] LABS: Absolute Lymphocyte Count 1.06 X10^3/uL (0.83-4.51); Absolute Neutrophil Count 11.9 X10^3/uL (2.0-7.7); Basophil# 0.06 X10^3/uL; Basophil% 0.4 % (0-1); Eosinophil# 0.08 X10^3/uL; Eosinophils% 0.6 % (0-5); Hematocrit 38.6 % (37-47); Hemoglobin 11.7 g/dL (12.0-15.0); Lymphocyte # 1.06 X10^3/ul (0.83-4.51); Lymphocyte % 7.7 % (19-41); Mean Corp Hgb Conc 30.3 g/dL (32-36); Mean Corpuscular Hgb 29.4 pg (27.0-32.0); Mean Platelet Vol. 9.7 fl (6.2-12.0); Monocyte# 0.37 X10^3/uL; Monocyte% 2.7 % (0-10); NRBC Flagged by Analyzer 0 % (0-5); Neutrophil # 11.91 X10^3/uL (2.7-7.7); Neutrophil % 86.7 % (47-70); Platelet Count 460 K/mm3 (150-450); RBC Distribution Width CV 14.3 % (11.6-14.6); RBC Distribution Width SD 50.7 fl (35.1-43.9); Red Blood Count 3.98 M/mm3 (4.2-5.4); White Blood Count 13.7 K/mm3 (4.4-11.0)
[2024-06-25 18:54] LABS: Amorphous Sediment 1+ URATE; Bacteria 1+ /hpf (None Seen); Red Blood Cells-Urine 10-25 SEEN /hpf (0-5); Squamous Epithelial Cells - UA 5-10 SEEN /hpf (5-10); White Blood Cells >100 SEEN /hpf (0-5)
[2024-06-25] MEDS: Acetaminophen 650 MG Suppository 1000 MG RC (19:00)
--- NOTE | 2024-06-25 19:01 | EX.ED.DYSGE1 ---
HPI History of Present Illness Chief Complaint: Alt LOC Informant: spouse/S.O. and EMS Narrative Narrative: 74-year-old female brought by EMS for altered mental status, more in the form of lethargy. According to the she was feeling fatigued all day and look like she was breathing a little heavier than normal but did not complain of any trouble breathing or chest discomfort. He states he sleeps most of the first part of the day, and last significantly interacted with her yesterday and she was doing fine. She recently had an abnormal heart cath in January, and then was sent to [facility] where she had complex PCI involving the left main, LAD, circumflex, was admitted to [facility] for rehab, and states she has been home from that for the past week and a half or so. EMS sent an EKG that they were concerned about but they arrived at the ER with the patient shortly after that was sent. [facility] Medical History Lesion of bladder Nonadherence to medication Depression Uses wheelchair Bladder disease Back pain Hx of falling Shortness of breath on exertion History of pain when walking History of echocardiogram History of stress test Hypertension History of CHF (congestive heart failure) Pain Uses wheelchair CPAP (continuous positive airway pressure) dependence History of heart attack (HFpEF) heart failure with preserved ejection fraction Wears glasses Wears dentures Insulin dependent diabetes mellitus Walker as ambulation aid Arthritis Pulmonary embolism Restless legs Back pain Dietary restriction History of IBS Gastric reflux Non-smoker On home oxygen therapy COPD (chronic obstructive pulmonary disease) Asthma Shortness of breath on exertion History of edema Hx of transesophageal echocardiography (MARIELLA) for monitoring Cardiology follow-up encounter COVID-19 determined by clinical diagnostic criteria Atherosclerosis of [place] coronary artery of [place] heart without angina pectoris Essential hypertension Dehydration Dehydration with hyponatremia Recurrent falls JILL (acute kidney injury) Carpal tunnel syndrome Seasonal allergies Chronic bronchitis Vitamin D deficiency Hyperlipidemia Diabetic peripheral neuropathy Hypokalemia IBS (irritable bowel syndrome) Insomnia Spinal stenosis of lumbar region DDD (degenerative disc disease), cervical Disequilibrium DM (diabetes mellitus), type 2, uncontrolled GERD (gastroesophageal reflux disease) Gastroenteritis Morbid obesity Atrial septal defect Pulmonary emboli Edema Abnormal echocardiogram SOB (shortness of breath) Obesity (BMI 35.0-39.9 without comorbidity) SHANNON (obstructive sleep apnea) Anxiety and depression Cystitis, acute Sepsis Restless leg syndrome Hypertension DM (diabetes mellitus), type 2, uncontrolled Asthma Home Medications ?Medication ?Instructions ?Recorded ?Last Taken ?Type ropinirole 4 mg tablet 4 mg PO BID RLS 02/23/13 02/17/24 History aspirin 81 mg tablet,delayed 81 mg PO DAILY heart health 07/06/20 02/17/24 History release (Adult Low Dose Aspirin) omeprazole 40 mg capsule,delayed 40 mg PO DAILY 07/06/20 02/17/24 History release potassium chloride 20 mEq 20 meq PO DAILY 11/09/21 02/17/24 History tablet,extended release amlodipine 5 mg tablet 5 mg PO DAILY #30 tabs 07/29/22 02/17/24 Rx clonidine HCl 0.1 mg tablet 0.1 mg PO BID 07/29/22 02/17/24 History ezetimibe 10 mg tablet 10 mg PO DAILY #90 TABLETS 09/01/23 02/17/24 Rx duloxetine 30 mg capsule,delayed 30 mg PO DAILY 10/01/23 02/17/24 History release acetaminophen 500 mg tablet 650 mg (1.3 x 500 mg) PO Q6H PRN 10/03/23 02/17/24 Rx Pain Score 1-5/10 #0 tabs albuterol sulfate 90 mcg/actuation 2 puff inhalation Q4H PRN 01/01/24 02/17/24 Rx aerosol inhaler shortness of breath or wheezing #8.5 grams insulin glargine 100 unit/mL (3 50 unit subcut BID 01/12/24 Unknown History mL) subcutaneous pen (Lantus Solostar U-100 Insulin) insulin lispro 100 unit/mL 20 unit subcut BID 01/12/24 Unknown History subcutaneous pen (Humalog KwikPen (U-100) Insulin) albuterol sulfate 2.5 mg/3 mL 2.5 mg inhalation PRN PRN 01/20/24 Unknown History (0.083 %) solution for nebulization shortness of breath or wheezing vibegron 75 mg tablet (Gemtesa) 75 mg PO DAILY 02/04/24 02/09/24 History clopidogrel 75 mg tablet 75 mg PO DAILY 05/20/24 Unknown History losartan 25 mg tablet 25 mg PO DAILY 05/20/24 Unknown History metoprolol succinate 25 mg 25 mg PO DAILY 05/20/24 Unknown History tablet,extended release 24 hr pantoprazole 40 mg tablet,delayed 40 mg PO DAILY 05/20/24 Unknown History release rosuvastatin 20 mg tablet 10 mg PO DAILY 05/20/24 Unknown History cefdinir 300 mg capsule 300 mg PO BID #4 caps 05/24/24 Unknown Rx furosemide 40 mg tablet (Lasix) 40 mg PO DAILY #30 tabs 05/24/24 Unknown Rx prednisone 20 mg tablet 40 mg (2 x 20 mg) PO BREAKFAST 3 05/24/24 Unknown Rx days #0 tabs Allergy/AdvReac Type Severity Reaction Status Date / Time rivaroxaban (From Xarelto) Allergy Intermediate Itching Verified 06/25/24 18:22 Environmental Allergies: Allergy PT UNABLE Verified 06/25/24 18:22 Uncoded TO RESPOND-NEEDS F/U latex Allergy Itching Verified 06/25/24 18:22 pravastatin Allergy Unknown Verified 06/25/24 18:22 codeine AdvReac Severe Itching Verified 06/25/24 18:22 zolpidem (From Ambien) AdvReac Severe Sleep Verified 06/25/24 18:22 walking/talking Family History Father Heart disease Hypertension CAD (coronary artery disease) Arthritis Mother Hypertension Asthma Diabetes Heart disease COPD (chronic obstructive pulmonary disease) Surgical History Hx of cystoscopy Hx of hammer toe correction History of toe surgery Hx of left cataract extraction Hx of right cataract extraction History of carpal tunnel surgery of right wrist History of carpal tunnel surgery of left wrist History of cardiac catheterization History of laparoscopic cholecystectomy sciatic nerve cauterization History of laminectomy (~07/2015) History of back surgery (~2018) History of umbilical hernia repair (~08/2012) History of cholecystectomy (~09/2011) History of appendectomy Social History household members: spouse housing: house Smoking Status: Never smoker second hand exposure: No alcohol intake: current alcohol intake frequency: holidays/special occasions only Alcohol type: beer and hard liquor substance use type: does not use caffeine: Yes Type: coffee Number of servings: 1 and tea what type of physical activity do you participate in: other details: physical therapy frequency: 1-2 times per week seatbelt use: always do you feel safe at home: Yes ROS ROS ED Review of Systems ROS Unobtainable: due to mental status EXAM Physical Exam Const Vital Signs: 06/25/24 18:17 06/25/24 18:20 06/25/24 18:25 Temperature 103.4 F H Temperature [10] Temperature [16] Temperature [1] Temperature [8] Temperature Source Oral Pulse Rate 70 Pulse Rate [10] Pulse Rate [11] Pulse Rate [12] Pulse Rate [16] Pulse Rate [1] Pulse Rate [21] Pulse Rate [8] Respiratory Rate 36 H Respiratory Rate [10] Respiratory Rate [16] Respiratory Rate [1] Respiratory Rate [21] Respiratory Rate [8] Respiratory Effort Respiratory Pattern Grunting Blood Pressure 134/102 H Blood Pressure [10] Blood Pressure [16] Blood Pressure [1] Blood Pressure [21] Blood Pressure [8] Blood Pressure Mean 112 Pulse Ox 96 Oxygen Delivery Method Non-Rebreather Non-Rebreather Oxygen Flow Rate (L/min) 15 15 Fraction of Inspired Oxygen (FIO2) 06/25/24 18:25 06/25/24 18:25 06/25/24 18:27 Temperature 103.4 F H Temperature [10] Temperature [16] Temperature [1] Temperature [8] Temperature Source Oral Pulse Rate 64 66 70 Pulse Rate [10] Pulse Rate [11] Pulse Rate [12] Pulse Rate [16] Pulse Rate [1] Pulse Rate [21] Pulse Rate [8] Respiratory Rate 40 H 33 H 36 H Respiratory Rate [10] Respiratory Rate [16] Respiratory Rate [1] Respiratory Rate [21] Respiratory Rate [8] Respiratory Effort Respiratory Pattern Tachypnea Tachypnea Blood Pressure 134/102 H Blood Pressure [10] Blood Pressure [16] Blood Pressure [1] Blood Pressure [21] Blood Pressure [8] Blood Pressure Mean 112 Pulse Ox 94 96 Oxygen Delivery Method Non-Rebreather Oxygen Flow Rate (L/min) 15 Fraction of Inspired Oxygen (FIO2) 30 06/25/24 18:33 06/25/24 18:56 06/25/24 19:05 Temperature 105.6 F H 106 F H Temperature [10] Temperature [16] Temperature [1] Temperature [8] Temperature Source Core Core Pulse Rate 66 60 59 L Pulse Rate [10] Pulse Rate [11] Pulse Rate [12] Pulse Rate [16] Pulse Rate [1] Pulse Rate [21] Pulse Rate [8] Respiratory Rate 35 H 26 H 18 Respiratory Rate [10] Respiratory Rate [16] Respiratory Rate [1] Respiratory Rate [21] Respiratory Rate [8] Respiratory Effort Respiratory Pattern Blood Pressure 95/53 L 139/83 H 115/92 H Blood Pressure [10] Blood Pressure [16] Blood Pressure [1] Blood Pressure [21] Blood Pressure [8] Blood Pressure Mean 67 101 99 Pulse Ox 93 96 Oxygen Delivery Method Bi-pap Bi-pap Bi-pap Oxygen Flow Rate (L/min) Fraction of Inspired Oxygen (FIO2) 06/25/24 19:16 06/25/24 19:20 06/25/24 19:28 Temperature 106.1 F H Temperature [10] 106.3 F H Temperature [16] 105.2 F H Temperature [1] 106.4 F H Temperature [8] 106.5 F H Temperature Source Pulse Rate 53 L 63 Pulse Rate [10] 59 L Pulse Rate [11] 44 L Pulse Rate [12] 64 Pulse Rate [16] 115 H Pulse Rate [1] 55 L Pulse Rate [21] 119 H Pulse Rate [8] 74 Respiratory Rate 15 19 H Respiratory Rate [10] 14 Respiratory Rate [16] 34 H Respiratory Rate [1] 24 H Respiratory Rate [21] 32 H Respiratory Rate [8] 12 Respiratory Effort Respiratory Pattern Normal Blood Pressure 115/92 H Blood Pressure [10] 94/76 Blood Pressure [16] 67/14 L Blood Pressure [1] 50/18 L Blood Pressure [21] 155/35 H Blood Pressure [8] 164/70 H Blood Pressure Mean 99 Pulse Ox 96 98 Oxygen Delivery Method Oxygen Flow Rate (L/min) Fraction of Inspired Oxygen (FIO2) 30 06/25/24 19:42 06/25/24 20:14 06/25/24 20:39 Temperature 105.4 F H Temperature [10] Temperature [16] Temperature [1] Temperature [8] Temperature Source Core Pulse Rate 55 L 122 H Pulse Rate [10] Pulse Rate [11] Pulse Rate [12] Pulse Rate [16] Pulse Rate [1] Pulse Rate [21] Pulse Rate [8] Respiratory Rate 20 H 12 Respiratory Rate [10] Respiratory Rate [16] Respiratory Rate [1] Respiratory Rate [21] Respiratory Rate [8] Respiratory Effort Mechanically Ventilated Respiratory Pattern Tachypnea Blood Pressure 64/54 L Blood Pressure [10] Blood Pressure [16] Blood Pressure [1] Blood Pressure [21] Blood Pressure [8] Blood Pressure Mean 57 Pulse Ox 98 Oxygen Delivery Method Mechanical Ventilator Oxygen Flow Rate (L/min) Fraction of Inspired Oxygen (FIO2) 100 06/25/24 20:48 Temperature Temperature [10] Temperature [16] Temperature [1] Temperature [8] Temperature Source Pulse Rate Pulse Rate [10] Pulse Rate [11] Pulse Rate [12] Pulse Rate [16] Pulse Rate [1] Pulse Rate [21] Pulse Rate [8] Respiratory Rate Respiratory Rate [10] Respiratory Rate [16] Respiratory Rate [1] Respiratory Rate [21] Respiratory Rate [8] Respiratory Effort Respiratory Pattern Blood Pressure 61/38 L Blood Pressure [10] Blood Pressure [16] Blood Pressure [1] Blood Pressure [21] Blood Pressure [8] Blood Pressure Mean 45 Pulse Ox Oxygen Delivery Method Oxygen Flow Rate (L/min) Fraction of Inspired Oxygen (FIO2) Positive well nourished, well developed and obese Constitutional Narrative: lethargic, mild resp distress General Appearance ED: well developed Nutritional Appearance: obese HEENT Reports moist mucous membranes normocephalic and atraumatic Eyes PERRL and EOMs intact bilaterally Neck full ROM, supple and no JVD Resp Resp Narrative: Diffusely wheezing, prolonged expiratory phase, mild respiratory distress Cardio regular rate and regular rhythm Rate: Negative for tachycardic GI non-tender and non-distended Auscultation: normoactive bowel sounds Palpation: soft Back/Spine no CVA tenderness General Back: other FROM Extremity normal to inspection General Extremety ED: Yes edema; Negative for pulses abnormal or tenderness General Extremity: edema bilateral lower extremity Details: moderate (With symmetric changes of chronic stasis dermatitis symmetric); Negative for pulses abnormal Neuro CN's II-XII intact bilaterally and no sensory deficits noted Neuro Narrative: Able to move all 4 extremities and follow commands, but lethargic, opens eyes to voice, and tries to answer questions but sounds are unintelligible. Zuri Coma Scale: document GCS findings To Voice Obeys Commands Incomprehensible 11 Sensorium / Orientation: awake and alert Motor Exam: general weakness Skin no rashes or lesions noted and no wounds MDM MDM MDM Narrative Medical decision making narrative: On initial evaluation, clinically patient is lethargic but following commands, appears to be in mild respiratory distress. We considered intubating her, but decided she was alert enough to try BiPAP first did not vomiting, so we did that as well as some nebulizer treatments, which she seemed to tolerate well and as a result her respiratory rate went from 36 down to 18. ABG was obtained prior to starting this, and it shows what appears to be an acute metabolic acidosis. Septic workup was obtained in addition to the stat EKG which shows a left bundle branch block and what appears to be possibly a millimeter of concordant ST elevation in the limb lateral leads as well as possibly a millimeter of [place] and ST depressions in the inferior limb leads. I compared this with the EMS EKG which look very similar, I thought this was consistent with a STEMI but I did not call a STEMI alert because the patient was 2 or 3 minutes away when they sent it, we were able to evaluate her quickly. I sent these in addition to her old EKG to the STEMI dish technician Dr. Rice, and in context of her high fever, we both determined that this is not likely a STEMI, it is likely sequential ventricular depolarization, she did have notching on her old EKG consistent with this, and she more likely is septic from an infection here. Her 1 view chest x-ray on my interpretation does not appear to show pneumonia or pneumothorax or congestive heart failure and her prior echo which I reviewed showed an EF of 70% no diastolic dysfunction. Her urine however which was obtained via placing Mccain catheter, appears infected and at this time as a source of her fever and syndrome until proven otherwise show Rocephin 2 g ordered after the blood cultures are obtained. We put her on BiPAP initially and she was tolerating it when I checked on her and seemed to be breathing a little easier. Her workup trickled back and at around the same time I was notified that her lactic acid was 10.2, she dominick'd down to the 50's and suddenly arrested and the nurse who was caring for her called a ROSA ELENA BLUE, CPR/ACLS was initiated, she underwent multiple rounds of this with epinephrine, regaining her pulse multiple times, eventually Levophed was started, central line was started and the Levophed was immediately moved to it from peripheral IV, she was intubated, during all this we continued to give multiple boluses of IV fluids, totaling over 30 cc/kg, she received most of it. The central line was placed in her right femoral vein due to multiple rounds of ACLS and pacing on her chest. After obtaining return of spontaneous circulation the second time, repeat EKG was obtained, and appeared to show either third-degree heart block or idioventricular rhythm around rate of 60. Regardless there appears to be A-V dissociation. This may explain why her heart rate was not responding to atropine or any of the ACLS medications and pressors. This was recognized shortly after this EKG although multiple other rounds of ACLS were performed, we did perform transthoracic pacing, with plan to transition her to transvenous. However, with pacing her at a rate of 130 and at 150 mA amperage, we were obtaining capture and an increased pulse with this, and I wanted to wait until her blood pressure was more stable in order to pause transthoracic pacing and transition her to transvenous. However this never happened, and she coded multiple times, performing ACLS each time. Many times she was in PEA, so I gave other medications including several amps of sodium and bicarbonate, an amp of calcium chloride, and multiple push dose pressors in the form of phenylephrine which was given on top of the Levophed, 3 separate times at 50 mcg, 50 mcg, and 100 mcg in order to try and prevent loss of pulse, which were unsuccessful each time. At 1 point we did a chest x-ray to confirm ETT placement, and on my interpretation this 1 view shows interval development of pulmonary edema on the right, and clinically we were suctioning dilute blood from her ETT while we were coding her, and this was probably bleeding related to all the CPR, and/or pulmonary contusion. I had spoken with the and the son, and then second son that arrived later, about the critical nature of her condition, which I suspect was overwhelming sepsis due to her UTI complicated by third-degree heart block, all refractory despite attempting to correct her acidosis, bring down her temperature with ice packs and Tylenol, treat her respiratory failure, and early administration of fluids and antibiotics. I brought them to the bedside while we were continuing to performed ACLS. I performed a cardiac ultrasound between CPR rounds, showing minimal, rare squeeze during the above pacing at a rate of 130. As I advised the family as the patient is in perpetual PEA because her heart is barely squeezing and she is on maximal medical therapy and not responding the pacing now, my recommendation is to discontinue resuscitation. The family talked about this briefly, and all were in agreement. The patient was declared at 2114. Lab Data Attestation: I reviewed the patient's lab results. Labs: Laboratory Results - last 24 hr 06/25/24 06/25/24 06/25/24 18:31 18:36 20:38 WBC 13.7 H RBC 3.98 L Hgb 11.7 L Hct 38.6 MCV 97.0 MCH 29.4 MCHC 30.3 L RDW Std Deviation 50.7 H RDW Coeff of Mitzy 14.3 Plt Count 460 H MPV 9.7 Immature Gran % (Auto) 1.900 H Neut % (Auto) 86.7 H Lymph % (Auto) 7.7 L [place] % (Auto) 2.7 Eos % (Auto) 0.6 Baso % (Auto) 0.4 Absolute Neuts (auto) 11.9 H Absolute Lymphs (auto) 1.06 Nucleated RBC % 0 PT 14.8 INR 1.1 APTT 26.4 Sodium 141 Potassium 4.6 Chloride 101 Carbon Dioxide 17.2 L Anion Gap 22 H BUN 23 H Creatinine 1.73 H Estim Creat Clear Calc 38.65 L Est GFR (MDRD) Non-Af 31 L BUN/Creatinine Ratio 13.1 Glucose 333 H Lactic Acid 10.2 H* Calcium 9.5 Total Bilirubin 0.57 AST 104 H ALT 31 Alkaline Phosphatase 85 Total Creatine Kinase 77 Troponin T High Sens 136 H* D Troponin T Hi Sens 2 Hr 550 H* NT pro BNP II 5066 H Total Protein 6.7 Albumin 3.7 Globulin 3.0 Albumin/Globulin Ratio 1.2 Urine Color GENNARO Urine Clarity Turbid Urine pH 5.0 Ur Specific [place] 1.020 Urine Protein 100 H Urine Glucose (UA) 100 H Urine Ketones Negative Urine Occult Blood 50 H Urine Nitrite Positive H Urine Bilirubin 6 H Urine Urobilinogen 8 H Ur Leukocyte Esterase 500 H Urine RBC 10-25 SEEN Urine WBC >100 SEEN Ur Squamous Epith Cells 5-10 SEEN Amorphous Sediment 1+ URATE Urine Bacteria 1+ Urine Mucus 0 SEEN ABG Data ABG results: ABG 06/25/24 18:25 Specimen Type ART Sample Site R Brach pH 7.21 L Bicarbonate Actual 14.5 L Total CO2 16 Base Excess -13 L O2 Saturation 97 O2 % 15.0 ABG pCO2 35.9 ABG pO2 103 H [place] Test Positive O2 Delivery Device NRB Vent Mode Not entered Radiography Diagnostic Testing: Clinical Impression(s) from Imaging Studies Chest X-Ray 06/25/24 18:50 IMPRESSION: No evidence of acute disease. Reading Location: [facility] Chest X-Ray 06/25/24 20:45 IMPRESSION: Endotracheal tube 2.5 cm above the rikki. There is now [id number] airspace opacity within the right lung with an upper zone predominance concerning for possible aspiration. The left lung appears clear. Enteric tube with tip and side port below the left erica diaphragm at the body of the stomach. Reading Location: [facility] EKG Initial EKG: Attestation: I personally reviewed and interpreted this EKG as follows: Interpretation: Sinus Rhythm, No Acute Injury Pattern and LBBB Prior: Unchanged Follow-up EKG: Attestation: I personally reviewed and interpreted this EKG as follows: Interpretation: No Acute Injury Pattern, LBBB and AV Block (3rd deg) Procedures Intubations Intubation Method: orotracheal (Via video laryngoscopy, initially was 7.5F but unsuccessful so repeated with neck in extension using 7.0F, difficulty getting the tube cuff through the cords but initially was able without causing bradycardia.) Intubation Verification: Positive color change and Bilateral breath sounds confirmed (Placement verified by 1 view chest x-ray which on my interpretation shows pulmonary edema on the right but good ETT placement without pneumothorax. Secured 20 cm lip.) Intubation Complications: oral-unsuccessful attempt (x1 due to anterior airway, secretions) Other Procedures Procedure(s): Central line placement: Central line indicated due to septic shock and cardiac arrest. Consent implied, emergent condition. R femoral vein site prepped and draped in a sterile fashion, full body sheet placed, locally anesthetized with 4 cc of plain 1% lidocaine, found dark red nonpulsatile blood via finder needle under direct visualization using sterile vascular ultrasound with Doppler and visualizing needle entering the vein. 16 cm triple-lumen catheter placed via modified Seldinger technique, all 3 ports shaista back dark red nonpulsatile blood and flushed easily. Chlorhexidine disc placed at the site of entry against the skin, sutured into place, and dressed with a Tegaderm. Tolerated well, no complications. Critical Care Time Critical Care Time: Yes Critical care time (excluding procedures): 75-104 minutes (88 min, exclusive of procedure time), Including time spent:, Discussing w/Patient &/or Family/Ticket Maker, Performing Direct Patient Care at Bedside and - (supervising ACLS) Discharge Plan Triage Chief Complaint: Alt LOC ED Provider: Donato Harris Dx/Rx/DC Orders Clinical Impression: Septic shock, Cardiopulmonary arrest, Acute UTI, Third degree heart block, JILL (acute kidney injury), Acute respiratory failure Prescriptions: No Action omeprazole 40 mg capsule,delayed release(DR/EC) 40 mg PO DAILY aspirin [Adult Low Dose Aspirin] 81 mg tablet,delayed release (DR/EC) 81 mg PO DAILY clonidine HCl 0.1 mg tablet 0.1 mg PO BID amlodipine 5 mg tablet 5 mg PO DAILY Qty: 30 11RF albuterol sulfate 90 mcg/actuation HFA aerosol inhaler 2 puff inhalation Q4H PRN (Reason: shortness of breath or wheezing) Qty: 8.5 11RF insulin glargine [Lantus Solostar U-100 Insulin] 100 unit/mL (3 mL) insulin pen 50 unit subcut BID insulin lispro [Humalog KwikPen Insulin] 100 unit/mL insulin pen 20 unit subcut BID ropinirole 4 MG tablet 4 mg PO BID Patient Comments: restless legs potassium chloride 20 mEq Tablet Extended Release 20 meq PO DAILY albuterol sulfate 2.5 mg /3 mL (0.083 %) solution for nebulization 2.5 mg inhalation PRN PRN (Reason: shortness of breath or wheezing) Gemtesa 75 mg tablet 75 mg PO DAILY clopidogrel 75 mg tablet 75 mg PO DAILY pantoprazole 40 mg tablet,delayed release (DR/EC) 40 mg PO DAILY losartan 25 mg tablet 25 mg PO DAILY metoprolol succinate 25 mg tablet extended release 24 hr 25 mg PO DAILY rosuvastatin 20 mg tablet 10 mg PO DAILY prednisone 20 mg Tablet 40 mg PO BREAKFAST 3 Days Qty: 0 0RF cefdinir 300 mg capsule 300 mg PO BID Qty: 4 0RF furosemide [Lasix] 40 mg tablet 40 mg PO DAILY Qty: 30 0RF duloxetine 30 mg capsule,delayed release(DR/EC) 30 mg PO DAILY acetaminophen 500 mg tablet 650 mg PO Q6H PRN (Reason: Pain Score 1-5/10) Qty: 0 0RF ezetimibe 10 mg tablet 10 mg PO DAILY Qty: 90 3RF Primary Care Provider: Kaz Cervantes Referrals: Kaz Cervantes DO [Primary Care Provider] - Print Language: Tamazight Disposition Disposition: Discharge Date/Time: 06/25/24 22:35 Date/Time: 06/25/24 21:15
[2024-06-25 19:06] LABS: International Normalized Ratio 1.1; Prothrombin Time (Protime)PT. 14.8 SECONDS (11.7-14.9)
[2024-06-25 19:07] LABS: Partial Thromboplast Time 26.4 Seconds (24.1-36.2)
[2024-06-25] MEDS: Ceftriaxone 2 GM in 0.9% Normal Saline (50mL MB+) 50 ML IV (19:18)
[2024-06-25 19:19] LABS: Lactic Acid 10.2 mmol/L (0.0-2.0)
[2024-06-25 19:20] LABS: CPK Total, Creatine Kinase 77 U/L (24-195)
[2024-06-25 19:22] LABS: Pro- Brain NATRIURETIC PEPTIDE 5066 pg/mL (<=900)
[2024-06-25] MEDS: Norepinephrine Bit/0.9% NaCl 8 MG/250 ML IV.SOLN 9.4 MG CONT INF (19:39)
[2024-06-25 19:43] LABS: ALB/GLOB Ratio 1.2 RATIO (0.9-2.4); AST(SGOT) 104 U/L (<=31); Alanine Aminotransfer ALT/SGPT 31 U/L (<=34); Albumin, Serum 3.7 g/dL (3.4-4.8); Alkaline Phosphatase 85 U/L (35-104); Anion Gap 22 (5-15); BUN 23 mg/dL (4-19); BUN/Creat Ratio 13.1 RATIO (10-20); Calcium,Total 9.5 mg/dL (7.6-11.0); Carbon Dioxide 17.2 mmol/L (21.0-32.0); Chloride 101 mmol/L (98-108); Creatinine, Serum 1.73 mg/dL (0.70-1.20); EST Glomerular Filtration Rate 31 (>60); Estimated Creatinine Clearance 38.65 ml/min (50-250); Glucose 333 mg/dL (70-99); Potassium 4.6 mmol/L (3.3-5.1); Protein, Total 6.7 g/dL (5.9-8.4); Sodium Level 141 mmol/L (133-145); Total Bilirubin 0.57 mg/dL (0.00-1.30)
[2024-06-25 19:45] LABS: Troponin T High Sensitivity 136 ng/L (<=14)
--- NOTE | 2024-06-25 19:54 | EKG12_ITS ---
Test Reason : CARDIAC ARREST Blood Pressure : */* mmHG Vent. Rate : 65 BPM Atrial Rate : 89 BPM P-R Int : * ms QRS Dur : 128 ms QT Int : 388 ms P-R-T Axes : * -84 18 degrees QTcB Int : 403 ms Critical Test Result: AV Block , Sinus rhythm with complete heart block and Wide QRS rhythm with occasional Premature ventricular complexes Left axis deviation Non-specific intra-ventricular conduction block Lateral infarct , possibly acute T wave abnormality, consider anterior ischemia Abnormal ECG Confirmed by PEPE MALIK, MARIEL ([id number]), editor index JAM RILEY ([id number]) on 06/28/2024 5:57:51 AM Referred By: PRABHU Confirmed By: MARIEL CANTU MD
[2024-06-25] MEDS: Atropine Sulfate 1 MG/10 ML Syringe IV (20:00)
--- NOTE | 2024-06-25 20:41 | ED.RN ---
see MAR for fluid bags administered and times given.
--- NOTE | 2024-06-25 20:44 | ED.RN ---
pt has signs of mottling to legs, abd, chest arms.
--- NOTE | 2024-06-25 20:45 | RAD_ITS ---
PROCEDURE: CHEST 1 VIEW (PORTABLE) 06/25/2024 REASON FOR EXAM: ETT PLACEMENT TECHNIQUE: Frontal view of the chest. At 20:42 COMPARISON: Preceding radiograph at 18:45 FINDINGS: Endotracheal tube 2.5 cm above the rikki. There is now eahxjppn-cr-tmjnso airspace opacity within the right lung with an upper zone predominance concerning for possible aspiration. The left lung appears clear. Enteric tube with tip and side port below the left erica diaphragm at the body of the stomach. RAD/Chest 1 View (Portable) IMPRESSION: Endotracheal tube 2.5 cm above the rikki. There is now eqduxvat-fy-liaxfw airspace opacity within the right lung with an upper zone predominance concerning for possible aspiration. The left lung appears clear. Enteric tube with tip and side port below the left erica diaphragm at the body o f the stomach. Reading Location: [id number]
--- NOTE | 2024-06-25 20:48 | ED.RN ---
PEA noted on monitor, CPR resumed.
--- NOTE | 2024-06-25 21:09 | CM.ED ---
Social Work SW met with patients . stated he has called 911 after he went to check on her and she was not responding as she normally did. 3 code blue were called while patient was in ED. SW provided emotional support to as needed. Kayleen Hicks, STADIUM ATTENDANT, PRESS [employer]OX CUSTODIAN
[2024-06-25 21:12] LABS: Troponin T High Sens 2 HR 550 ng/L (<=14)
--- NOTE | 2024-06-25 21:14 | ED.RN ---
Critical trop of 550 received from lab. Physician and primary RN notified
--- NOTE | 2024-06-25 21:16 | ED.RN ---
family members at bedside discussing patient with Dr. Harris. time of 2114.
--- NOTE | 2024-06-25 21:39 | CPS ---
[place] rounds of CPR throughout a two hour time period
--- NOTE | 2024-06-25 22:02 | ED.RN ---
Approximately 2L normal saline, 2 amps of sodium bicarb, 1g in 10ml of calcium chloride, and 7 epis given during last hour of life.
[2024-06-25 22:37] LABS: Reflex Lactate? Y
== END 2024-06-25 22:35 ==
LOC: ED 18:57
PROVIDERS: Emergency Provider Emergency Medicine; PCP Family Medicine; Visit Provider Emergency Medicine
DX: A41.9 Sepsis, unspecified organism (principal); R65.21 Severe sepsis with septic shock; J96.00 Acute respiratory failure, unspecified whether with hypoxia or hypercapnia; I46.9 Cardiac arrest, cause unspecified; I11.0 Hypertensive heart disease with heart failure; I50.32 Chronic diastolic (congestive) heart failure; J44.9 Chronic obstructive pulmonary disease, unspecified; I44.2 Atrioventricular block, complete; E11.42 Type 2 diabetes mellitus with diabetic polyneuropathy; Z79.4 Long term (current) use of insulin; N39.0 Urinary tract infection, site not specified; N17.9 Acute kidney failure, unspecified; I25.10 Atherosclerotic heart disease of native coronary artery without angina pectoris; E78.5 Hyperlipidemia, unspecified; Z79.82 Long term (current) use of aspirin; Z79.02 Long term (current) use of antithrombotics/antiplatelets; Z79.899 Other long term (current) drug therapy; I25.2 Old myocardial infarction; E87.21 Acute metabolic acidosis
CPT/HCPCS: 36556; 31500; 31720; 36600; 51702; 71045; 80053; 81001; 82550; 82803; 83605; 83880; 84484; 85025; 85610; 85730; 87040; 87077; 87086; 87088; 87186; 87631; 92950; 92953; 93005; 94002; 94640; 96361; 96365; 96366; 96367; 96375; 99285; A4216; C1751; J0696